=== PATIENT | female | born 1970 | race African-American/Black ===

== ENCOUNTER 2017-09-22 07:23 | Emergency (ER) | payer SELFPAY ==
[2017-09-22 08:41] LABS: Urine Blood NEGATIVE (NEG); Urine Glucose 2+ (NEG); Urine Protein NEGATIVE (NEG); Urine Specific Gravity 1.025 (1.005-1.030); Urine pH 5.5 (5.0-7.0)
[2017-09-22 08:43] LABS: Calcium Oxalate Crystals- Ur PRESENT (NONE SEEN); Urine Bacteria >50 /HPF (<20); Urine Culture Reflex Order REFLEXED; Urine RBC <5 /HPF (NONE SEEN)
--- NOTE | 2017-09-22 09:56 | RAD REPORT ---
EXAM DESCRIPTION: CT - Stone Protocol - 09/22/2017 9:26 am CLINICAL HISTORY: Abdominal pain, right lower quadrant pain COMPARISON: CT November 2016 TECHNIQUE: Axial 5 mm thick images were obtained without oral or IV contrast. The [id number] span s the entirety of the system partially obscuring uppermost abdomen and lung bases. All CT scans are performed using dose optimization technique as appropriate and may include automated exposure control or mA/KV adjustment according to patient size. FINDINGS: No hydronephrosis is present and no obstructing ureteral calculi. No suspicious renal mass es. Isodense masses and pyelonephritis are not excluded on a stone protocol CT scan. No urinary bladd er suspicious finding. Uterus is absent. Ovaries are absent or obscured by adjacent isodense bowel. N o ovarian or adnexal mass suspected. Imaged portions of the liver, spleen and pancreas show no suspicious findings on non-contrast imaging . Cholecystectomy clips are present. No biliary tree dilatation. No significant adrenal finding. Stomach and small bowel show no suspicious findings. There is no appendicitis. Moderately large stool volume is present throughout the colon. An active colon process is doubtful. Hyperdensity within the colon is probably from ingested medication. No hernia, mass or bulky lymphadenopathy noted. No free air, free fluid or inflammatory stranding. No significant bony abnormality. IMPRESSION: No hydronephrosis, obstructing calculus or other acute finding. Isodense masses and pyelonephritis are not excluded on stone protocol technique. Moderately large stool volume throughout the colon. No appendicitis or other active GI process.
--- NOTE | 2017-09-22 10:26 | EDPHYS ---
Physician Documentation [facility] Name: Bisi Santo Age: 47 yrs Sex: Female : 1970 Arrival Date: 09/22/2017 Time: 07:26 Bed 5 Private MD: ED Physician Steve Torres HPI: 09/22 10:14 This 47 yrs old Black Female presents to ER via Ambulatory with complaints of Abdominal gs Pain. 10:14 The patient complains of pain in the right low back. The pain radiates to the abdomen. gs Onset: The symptoms/episode began/occurred 2 day(s) ago. Modifying factors: The symptoms are alleviated by nothing. the symptoms are aggravated by nothing. Associated signs and symptoms: Pertinent negatives: diarrhea, fever, vomiting. Severity of pain: At its worst the pain was moderate in the emergency department the pain is unchanged. The patient has experienced similar episodes in the past, a few times. 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 - Social history:: Smoking status: Patient/guardian denies using tobacco. ROS: 10:14 All other systems are negative. gs Exam: 10:14 Head/Face: Normocephalic, atraumatic. Eyes: Pupils equal round and reactive to light, gs extra-ocular motions intact. Lids and lashes normal. Conjunctiva and sclera are non-icteric and not injected. Cornea within normal limits. Periorbital areas with no swelling, redness, or edema. ENT: Nares patent. No nasal discharge, no septal abnormalities noted. Tympanic membranes are normal and external auditory canals are clear. Oropharynx with no redness, swelling, or masses, exudates, or evidence of obstruction, uvula midline. Mucous membranes moist. Neck: Trachea midline, no thyromegaly or masses palpated, and no cervical lymphadenopathy. Supple, full range of motion without nuchal rigidity, or vertebral point tenderness. No Meningismus. Chest/axilla: Normal chest wall appearance and motion. Nontender with no deformity. No lesions are appreciated. Cardiovascular: Regular rate and rhythm with a normal S1 and S2. No gallops, murmurs, or rubs. Normal PMI, no JVD. No pulse deficits. Respiratory: Lungs have equal breath sounds bilaterally, clear to auscultation and percussion. No rales, rhonchi or wheezes noted. No increased work of breathing, no retractions or nasal flaring. Skin: Warm, dry with normal turgor. Normal color with no rashes, no lesions, and no evidence of cellulitis. MS/ Extremity: Pulses equal, no cyanosis. Neurovascular intact. Full, normal range of motion. Neuro: Awake and alert, GCS 15, oriented to person, place, time, and situation. Cranial nerves II-XII grossly intact. Motor strength 5/5 in all extremities. Sensory grossly intact. Cerebellar exam normal. Normal gait. 10:14 Constitutional: The patient appears alert, awake. 10:14 Back: pain, that is moderate, CVA tenderness, that is moderate, is noted on the right. Vital Signs: 07:49 BP 150 / 94; Pulse 90; Resp 18 S; Pulse Ox 100% on R/A; Weight 63.5 kg; Height 5 ft. 2 iw in. (157.48 cm); Pain 6/10; 08:45 BP 148 / 88; Pulse 88; Resp 16; Pulse Ox 100% on R/A; hb 10:24 BP 162 / 90; Pulse 84; Resp 19; Pulse Ox 100% on R/A; la1 07:49 Body Mass Index 25.61 (63.50 kg, 157.48 cm) iw MDM: 07:49 Patient medically screened. 10:14 Differential diagnosis: nephrolithiasis, pyelonephritis, UTI. Data reviewed: vital gs signs, nurses notes. Response to treatment: the patient's symptoms have mildly improved after treatment, and as a result, I will discharge patient. 09/22 07:56 Order name: Urine Microscopic Only; Complete Time: 08:52 gs 09/22 08:10 Order name: Urine Dipstick--Ancillary (enter results); Complete Time: 08:52 09/22 07:56 Order name: Urine Test (obtain specimen); Complete Time: 08:02 09/22 08:10 Order name: Urine --Ancillary (enter results); Complete Time: 08:52 09/22 08:45 Order name: Urine Culture [facility] 09/22 08:53 Order name: CT Stone Protocol; Complete Time: 10:13 09/22 07:56 Order name: Urine Dipstick-Ancillary (obtain specimen); Complete Time: 08:02 Administered Medications: No medications were administered Disposition: 09/22/17 10:26 Discharged to Home. Impression: Acute tubulo-interstitial nephritis. - Condition is Stable. - Discharge Instructions: Pyelonephritis, Adult. - Prescriptions for Keflex 500 mg Oral Capsule - take 2 capsule by ORAL route every 12 hours for 10 days; 40 capsule. - Medication Reconciliation Form, Thank You Letter, Antibiotic Education, Prescription Opioid Use form. - Follow up: Private Physician; When: 2 - 3 days; Reason: Re-evaluation by your physician. Signatures: Dispatcher [employer] Joan Posada RN RN iw Daniel Kapoor RN RN la1 Steve Torres MD MD Corrections: (The following items were deleted from the chart) 10:36 10:26 09/22/2017 10:26 Discharged to Home. Impression: Acute tubulo-interstitial la1 nephritis. Condition is Stable. Forms are Medication Reconciliation Form, Thank You Letter, Antibiotic Education, Prescription Opioid Use. Follow up: Private Physician; When: 2 - 3 days; Reason: Re-evaluation by your physician. gs
--- NOTE | 2017-09-22 10:26 | ER ---
Nurse's Notes [facility] Name: Bisi Santo Age: 47 yrs Sex: Female : 1970 Arrival Date: 09/22/2017 Time: 07:26 Bed 5 Private MD: Diagnosis: Acute tubulo-interstitial nephritis Presentation: 09/22 07:47 Presenting complaint: Patient states: has had RLQ pain since yesterday morning, iw described as dull intermittent, radiates to right lower back, denies hx of kidney stones, also had pain with urination this morning. Transition of care: patient was not received from another setting of care. Onset of symptoms was September 21, 2017. Initial Sepsis Screen: Does the patient meet any 2 criteria? No. Patient's initial sepsis screen is negative. Does the patient have a suspected source of infection? No. Patient's initial sepsis screen is negative. Care prior to arrival: None. 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 - Social history:: Smoking status: Patient/guardian denies using tobacco. Screenin:00 Abuse screen: Denies threats or abuse. Denies injuries from another. hb 08:00 Nutritional screening: No deficits noted. Tuberculosis screening: No symptoms or risk hb factors identified. Fall Risk None identified. Assessment: 08:00 General: Appears in no apparent distress. Behavior is calm, cooperative. Pain: Pain hb currently is 2 out of 10 on a pain scale. Neuro: Level of Consciousness is awake, alert, obeys commands, Oriented to person, place, time, situation. Cardiovascular: Capillary refill < 3 seconds Patient's skin is warm and dry. Respiratory: Airway is patent Trachea midline Respiratory effort is even, unlabored, Respiratory pattern is regular, symmetrical, Breath sounds are clear bilaterally. GI: Abdomen is flat, Bowel sounds present X 4 quads. Abd is soft and non tender X 4 quads. Reports lower abdominal pain. : Reports pain in right flank(s), lower quadrant(s). EENT: No signs and/or symptoms were reported regarding the EENT system. Derm: No signs and/or symptoms reported regarding the dermatologic system. Skin is intact, is healthy with good turgor. Musculoskeletal: No signs and/or symptoms reported regarding the musculoskeletal system. 09:00 Reassessment: Patient appears in no apparent distress at this time. No changes from hb previously documented assessment. Patient and/or family updated on plan of care and expected duration. Pain level reassessed. Patient is alert, oriented x 3, equal unlabored respirations, skin warm/dry/pink. 09:43 Reassessment: No changes from previously documented assessment. Patient and/or family la1 updated on plan of care and expected duration. Pain level reassessed. Patient is alert, oriented x 3, equal unlabored respirations, skin warm/dry/pink. Vital Signs: 07:49 BP 150 / 94; Pulse 90; Resp 18 S; Pulse Ox 100% on R/A; Weight 63.5 kg; Height 5 ft. 2 iw in. (157.48 cm); Pain 6/10; 08:45 BP 148 / 88; Pulse 88; Resp 16; Pulse Ox 100% on R/A; hb 10:24 BP 162 / 90; Pulse 84; Resp 19; Pulse Ox 100% on R/A; la1 07:49 Body Mass Index 25.61 (63.50 kg, 157.48 cm) iw ED Course: 07:26 Patient arrived in ED. mr 07:39 Steve Torres MD is Attending Physician. gs 07:42 Malu Paul, ISAIAH is Primary Nurse. hb 07:48 Triage completed. iw 07:49 Arm band placed on. iw 08:00 Patient has correct armband on for positive identification. Bed in low position. Call hb light in reach. Side rails up X 1. 09:17 Inserted saline lock: 20 gauge in right. hb 09:24 CT completed. Patient moved to CT via wheelchair. Patient moved back from CT. cw1 09:25 CT Stone Protocol In Process Unspecified. EDMS 10:35 No provider procedures requiring assistance completed. IV discontinued, intact, la1 bleeding controlled, No redness/swelling at site. Pressure dressing applied. Administered Medications: No medications were administered Outcome: 10:26 Discharge ordered by . gs 10:35 Discharged to home ambulatory. la1 10:35 Condition: stable 10:35 Discharge instructions given to patient, Instructed on discharge instructions, follow up and referral plans. medication usage, Demonstrated understanding of instructions, follow-up care, medications, Prescriptions given X 1. 10:36 Patient left the ED. la1 Addendum: 09/26/2017 14:24 Addendum: Culture Results: Positive urine culture. Bacteria is resistant to, has i w intermediate sensitivity, or is not tested against prescribed antibiotics. Report given to AMISHA for further evaluation and then to rn cardiac cath for follow up with patient. Phone call Attempt #1 pt was seen in ER 5--18, was prescribed Levaquin. Signatures: Dispatcher [employer] EDIL Laura Vallejo Irene, RN Mary Jarquin cw1 Daniel Kapoor RN RN la1 Malu Paul, Steve Coyle RN, MD MD gs
[2017-09-22 10:40] VITALS: O2SAT 100
[2017-09-22 10:42] VITALS: BP 162/90
== END 2017-09-22 10:36 | disposition home or self-care (01) ==
LOC: ER 07:23
DX: N10 Acute pyelonephritis (principal); I10 Essential (primary) hypertension; E11.9 Type 2 diabetes mellitus without complications; Z79.4 Long term (current) use of insulin; Z88.2 Allergy status to sulfonamides; Z88.5 Allergy status to narcotic agent
CPT/HCPCS: 74176; 76377; 81003; 81015; 81025; 87077; 87086; 87088; 87186; 99284

== ENCOUNTER 2017-09-26 08:31 | Emergency (ER) | payer SELFPAY ==
[2017-09-26] MEDS ORDERED: MEPERIDINE HCL 25 MG/0.5 ML ONE (09:19)
[2017-09-26] MEDS ORDERED: PROMETHAZINE 25 MG/ML VIAL ONE (09:19)
[2017-09-26 09:44] LABS: Absolute Monocytes 0.4 K/uL (0.1-1.3); Absolute Neutrophil 2.7 K/uL (1.8-8.0); Basophils % 0.5 % (0-1.3); Eosinophils % 1.6 % (0-4.4); Hematocrit 40.6 % (36.0-45.0); Lymphocytes % 39.1 % (15.3-44.8); MCH 29.3 pg (27.0-35.0); MCV 88.9 fL (80-100); MPV 9.5 fL (7.6-11.3); Monocytes % 6.9 % (3.3-12.3); RBC Red Blood Cell Count 4.57 M/uL (3.86-4.86)
[2017-09-26 09:52] LABS: Bicarbonate 30 mEq/L (21-31); Glucose Level 207 mg/dL (65-120); Lipase 35 U/L (22-51); Potassium 3.6 mEq/L (3.6-5.0); Sodium Level 135 mEq/L (135-145)
[2017-09-26 09:59] LABS: ALT/SGPT 25 IU/L (10-60); AST/SGOT 33 IU/L (10-42); Albumin 3.3 g/dL (3.2-5.5); Alkaline Phosphatase 72 IU/L (42-121); BUN Blood Urea Nitrogen 12 mg/dL (6-20); Bilirubin Direct 0.1 mg/dL (0-0.2); Bilirubin Total 0.7 mg/dL (0.3-1.2); Protein, Total 6.6 g/dL (6.0-8.3)
--- NOTE | 2017-09-26 10:40 | ER ---
Nurse's Notes [facility] Name: Bisi Santo Age: 47 yrs Sex: Female : 1970 Arrival Date: 09/26/2017 Time: 08:33 Bed 19 Private MD: Musa Rey Diagnosis: Acute tubulo-interstitial nephritis Presentation: 09/26 08:44 Presenting complaint: Patient states: dx with kidney infection recently, was prescribed iw abx, has increased pain to right flank, also having blood when she wipes after urinating, c/o pain to right flank when she urinates, denies fever. Transition of care: patient was not received from another setting of care. Onset of symptoms was September 26, 2017. Initial Sepsis Screen: Does the patient meet any 2 criteria? No. Patient's initial sepsis screen is negative. Does the patient have a suspected source of infection? No. Patient's initial sepsis screen is negative. Care prior to arrival: None. 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 - Social history:: Smoking status: Patient/guardian denies using tobacco. Screenin:53 Abuse screen: Denies threats or abuse. Nutritional screening: No deficits noted. ae1 Tuberculosis screening: No symptoms or risk factors identified. Fall Risk None identified. Assessment: 09:20 General: Appears uncomfortable, Behavior is calm, cooperative. Pain: Complains of pain ae1 in abdomen. Neuro: Level of Consciousness is awake, alert, obeys commands, Oriented to person, place, time, situation. Cardiovascular: Heart tones S1 S2 present Patient's skin is warm and dry. Respiratory: Airway is patent Respiratory effort is even, unlabored, Respiratory pattern is regular, symmetrical. GI: Bowel sounds present X 4 quads. Abd is soft and non tender. : Reports burning with urination, urinary frequency. EENT: No signs and/or symptoms were reported regarding the EENT system. Derm: Skin is normal. Musculoskeletal: No signs and/or symptoms reported regarding the musculoskeletal system. 10:09 Reassessment: Patient and/or family updated on plan of care and expected duration. Pain ae1 level reassessed. Patient states feeling better. Patient states symptoms have improved. 10:25 Reassessment: Patient up to restroom, encouraged to provide urine sample. ae1 Vital Signs: 08:46 BP 157 / 94; Pulse 92; Resp 18 S; Temp 98.1(TE); Pulse Ox 99% on R/A; Weight 63.5 kg; iw Height 5 ft. 2 in. (157.48 cm); Pain 9/10; 10:52 BP 161 / 90; Pulse 88; Resp 18; Pulse Ox 99% on R/A; ae1 08:46 Body Mass Index 25.61 (63.50 kg, 157.48 cm) iw ED Course: 08:33 Patient arrived in ED. mr 08:34 Musa Rey DO is Private Physician. mr 08:45 Triage completed. iw 08:46 Arm band placed on. iw 09:01 Tonny Yung PA is PHCP. jr8 09:01 Juan Pablo Barr MD is Attending Physician. jr8 09:17 Fabio Heath, ISAIAH is Primary Nurse. ae1 09:25 Inserted saline lock: 20 gauge in right antecubital area, using aseptic technique. ae1 Blood collected. 10:10 Placed in gown. Bed in low position. Call light in reach. Side rails up X 1. Adult w/ ae1 patient. Pulse ox on. NIBP on. Warm blanket given. 10:38 Musa Rey DO is Referral Physician. jr8 10:54 No provider procedures requiring assistance completed. ae1 11:10 IV discontinued, intact, bleeding controlled, No redness/swelling at site. Pressure ae1 dressing applied. Administered Medications: 09:00 Drug: Demerol 25 mg Route: IVP; Site: right antecubital; ae1 10:09 Follow up: Response: Pain is decreased ae1 09:27 Drug: Phenergan 12.5 mg Route: IVP; Site: right antecubital; ae1 10:10 Follow up: Response: Nausea is decreased ae1 10:52 Drug: LevaQUIN 500 mg Route: PO; ae1 11:11 Follow up: Response: Medication administered at discharge. ae1 Outcome: 10:39 Discharge ordered by . francoise 11:10 Discharged to home ambulatory, with family. ae1 11:10 Condition: stable 11:10 Discharge instructions given to patient, Instructed on discharge instructions, follow up and referral plans. medication usage, Demonstrated understanding of instructions, Prescriptions given X 2. 11:11 Patient left the ED. ae1 Signatures: Laura Vallejo Irene, RN RN iw Tonny Yung PA PA jr8 Elliott, Andrea, RN RN ae1
--- NOTE | 2017-09-26 10:40 | EDPHYS ---
Physician Documentation [facility] Name: Bisi Santo Age: 47 yrs Sex: Female : 1970 Arrival Date: 09/26/2017 Time: 08:33 Bed 19 Private MD: Musa Rey ED Physician Juan Pablo Barr HPI: 09/26 10:35 This 47 yrs old Black Female presents to ER via Ambulatory with complaints of flank jr8 pain. 10:35 The patient complains of pain in the right flank. The pain does not radiate. Onset: The jr8 symptoms/episode began/occurred acutely, yesterday. Modifying factors: The symptoms are alleviated by nothing. the symptoms are aggravated by movement. Associated signs and symptoms: Pertinent positives: dysuria, nausea. Severity of pain: At its worst the pain was moderate in the emergency department the pain is unchanged. The patient has experienced a previous episode. The patient has been recently seen by a physician:. Patient recently seen and diagnosed with pyelonephritis. Stated that her pain is back and antibiotics not working . 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 - Social history:: Smoking status: Patient/guardian denies using tobacco. ROS: 10:35 Eyes: Negative for injury, pain, redness, and discharge, ENT: Negative for injury, jr8 pain, and discharge, Neck: Negative for injury, pain, and swelling, Cardiovascular: Negative for chest pain, palpitations, and edema, Respiratory: Negative for shortness of breath, cough, wheezing, and pleuritic chest pain, MS/Extremity: Negative for injury and deformity, Skin: Negative for injury, rash, and discoloration, Neuro: Negative for headache, weakness, numbness, tingling, and seizure. 10:35 Abdomen/GI: Positive for nausea, Negative for abdominal pain, vomiting, diarrhea, constipation, abdominal cramps, abdominal distension, anorexia, dysphagia, hematemesis, black/tarry stool, rectal pain, rectal bleeding, bowel incontinence, flatulence. 10:35 Back: Positive for flank pain, on the right. Exam: 10:35 Eyes: Pupils equal round and reactive to light, extra-ocular motions intact. Lids and jr8 lashes normal. Conjunctiva and sclera are non-icteric and not injected. Cornea within normal limits. Periorbital areas with no swelling, redness, or edema. ENT: Nares patent. No nasal discharge, no septal abnormalities noted. Tympanic membranes are normal and external auditory canals are clear. Oropharynx with no redness, swelling, or masses, exudates, or evidence of obstruction, uvula midline. Mucous membranes moist. Neck: Trachea midline, no thyromegaly or masses palpated, and no cervical lymphadenopathy. Supple, full range of motion without nuchal rigidity, or vertebral point tenderness. No Meningismus. Cardiovascular: Regular rate and rhythm with a normal S1 and S2. No gallops, murmurs, or rubs. Normal PMI, no JVD. No pulse deficits. Respiratory: Lungs have equal breath sounds bilaterally, clear to auscultation and percussion. No rales, rhonchi or wheezes noted. No increased work of breathing, no retractions or nasal flaring. Abdomen/GI: Soft, non-tender, with normal bowel sounds. No distension or tympany. No guarding or rebound. No evidence of tenderness throughout. Skin: Warm, dry with normal turgor. Normal color with no rashes, no lesions, and no evidence of cellulitis. MS/ Extremity: Pulses equal, no cyanosis. Neurovascular intact. Full, normal range of motion. Neuro: Awake and alert, GCS 15, oriented to person, place, time, and situation. Cranial nerves II-XII grossly intact. Motor strength 5/5 in all extremities. Sensory grossly intact. Cerebellar exam normal. Normal gait. 10:35 Back: pain, that is moderate, of the right flank, ROM is normal, normal spinal alignment noted, CVA tenderness, that is mild, is noted on the right, vertebral tenderness, is not appreciated, muscle spasm, is not present. Vital Signs: 08:46 BP 157 / 94; Pulse 92; Resp 18 S; Temp 98.1(TE); Pulse Ox 99% on R/A; Weight 63.5 kg; iw Height 5 ft. 2 in. (157.48 cm); Pain 9/10; 10:52 BP 161 / 90; Pulse 88; Resp 18; Pulse Ox 99% on R/A; ae1 08:46 Body Mass Index 25.61 (63.50 kg, 157.48 cm) iw MDM: 09:01 Patient medically screened. jr8 10:35 Data reviewed: vital signs, nurses notes, old medical records, lab test result(s), and jr8 as a result, I will discharge patient. Data interpreted: Pulse oximetry: on room air is 99 %. Interpretation: normal. Counseling: I had a detailed discussion with the patient and/or guardian regarding: the historical points, exam findings, and any diagnostic results supporting the discharge/admit diagnosis, lab results, radiology results, the need for outpatient follow up, a family practitioner, a urologist, to return to the emergency department if symptoms worsen or persist or if there are any questions or concerns that arise at home. 09/26 09:15 Order name: Basic Metabolic Panel; Complete Time: 10:09/26 09:15 Order name: CBC with Diff; Complete Time: 09/26 09:15 Order name: Creatinine for Radiology; Complete Time: 10:09/26 09:15 Order name: Hepatic Function; Complete Time: :09/26 09:15 Order name: Lipase; Complete Time: 09/26 10:41 Order name: Urine Dipstick--Ancillary (enter results); Complete Time: 10:49 ag 09/26 09:15 Order name: IV Saline Lock; Complete Time: 09:40 09/26 09:15 Order name: Labs collected and sent; Complete Time: :09/26 09:15 Order name: Urine Dipstick-Ancillary (obtain specimen); Complete Time: 10:35 jr Administered Medications: 09:00 Drug: Demerol 25 mg Route: IVP; Site: right antecubital; ae1 10:09 Follow up: Response: Pain is decreased ae1 09:27 Drug: Phenergan 12.5 mg Route: IVP; Site: right antecubital; ae1 10:10 Follow up: Response: Nausea is decreased ae1 10:52 Drug: LevaQUIN 500 mg Route: PO; ae1 11:11 Follow up: Response: Medication administered at discharge. ae1 Disposition: 09/27 07:03 Co-signature as Attending Physician, Juan Pablo Barr MD I agree with the assessment and mo plan of care. Disposition: 09/26/17 10:39 Discharged to Home. Impression: Acute tubulo-interstitial nephritis. - Condition is Stable. - Discharge Instructions: Pyelonephritis, Adult. - Prescriptions for Levaquin 500 mg Oral Tablet - take 1 tablet by ORAL route once daily for 7 days; 7 tablet. Tramadol 50 mg Oral Tablet - take 1 tablet by ORAL route every 8 hours as needed; 12 tablet. - Medication Reconciliation Form, Thank You Letter, Antibiotic Education, Prescription Opioid Use form. - Follow up: Musa Rey DO; When: 1 - 2 days; Reason: Recheck today's complaints, Continuance of care, Re-evaluation by your physician. - Problem is new. - Symptoms have improved. Signatures: Dispatcher [employer] EDMS Joan Balbuena RN RN iw Roszak, Josh, PA PA jr8 Fabio Heath RN RN ae1 Juan Pablo Barr MD MD mo Corrections: (The following items were deleted from the chart) 09/26 11:11 10:39 09/26/2017 10:39 Discharged to Home. Impression: Acute tubulo-interstitial ae1 nephritis. Condition is Stable. Forms are Medication Reconciliation Form, Thank You Letter, Antibiotic Education, Prescription Opioid Use. Follow up: Musa Rey; When: 1 - 2 days; Reason: Recheck today's complaints, Continuance of care, Re-evaluation by your physician. Problem is new. Symptoms have improved. jr8
[2017-09-26 10:45] LABS: Urine Blood NEGATIVE (NEG); Urine Glucose 2+ (NEG); Urine Protein 1+ (NEG); Urine pH 6.5 (5.0-7.0)
[2017-09-26] MEDS ORDERED: levoFLOXacin 500 MG TAB ONE (10:50)
[2017-09-26 11:15] VITALS: TEMP 98.1; O2SAT 99
[2017-09-26 11:16] VITALS: BP 161/90
== END 2017-09-26 11:11 | disposition home or self-care (01) ==
LOC: ER 08:31
DX: N10 Acute pyelonephritis (principal); E11.9 Type 2 diabetes mellitus without complications; Z79.4 Long term (current) use of insulin; I10 Essential (primary) hypertension
CPT/HCPCS: 36415; 80048; 80076; 81003; 83690; 85025; 96374; 96375; 99284; J2175; J2550

== ENCOUNTER 2018-01-10 07:44 | Emergency (ER) | payer SELFPAY ==
[2018-01-10 08:19] LABS: Absolute Lymphocytes (CBC) 1.6 K/uL (0.7-4.9); Absolute Monocytes 0.3 K/uL (0.1-1.3); Absolute Neutrophil 2.7 K/uL (1.8-8.0); Basophils % 0.6 % (0-1.3); Eosinophils % 1.4 % (0-4.4); Hematocrit 43.8 % (36.0-45.0); Lymphocytes % 33.4 % (15.3-44.8); MCH 29.7 pg (27.0-35.0); MCV 88.9 fL (80-100); MPV 9.8 fL (7.6-11.3); Monocytes % 6.7 % (3.3-12.3); RBC Red Blood Cell Count 4.93 M/uL (3.86-4.86)
[2018-01-10] MEDS ORDERED: KETOROLAC 30 MG/ML INJ ONE (08:27)
[2018-01-10 08:43] LABS: BUN Blood Urea Nitrogen 9 mg/dL (7-18); Bicarbonate 31 mmol/L (21-32); Glucose Level 361 mg/dL (74-106); Potassium 4.2 mmol/L (3.5-5.1); Sodium Level 137 mmol/L (136-145)
[2018-01-10 09:02] LABS: Protime INR 0.92
--- NOTE | 2018-01-10 09:17 | RAD REPORT ---
EXAM DESCRIPTION: RAD - Chest Single View - 01/10/2018 8:22 am CLINICAL HISTORY: CHEST PAIN Chest pain. COMPARISON: Chest Pa And Lat (2 Views) dated 07/11/2017; Chest Single View dated 06/08/2017; Chest Sin gle View dated 12/11/2016; Chest Single View dated 12/10/2016 FINDINGS: Portable technique limits examination quality. The lungs are grossly clear. The heart is normal in size. No displaced fractures. IMPRESSION: No acute intrathoracic process suspected.
[2018-01-10] MEDS ORDERED: ONDANSETRON 4 MG/2 ML VIAL ONE (09:28)
[2018-01-10] MEDS ORDERED: cloNIDine HCl 0.1 MG TAB ONE ×2 (10:32→11:23)
[2018-01-10] MEDS ORDERED: NA CHLORIDE 0.9% 1,000 ML ONE (10:36)
[2018-01-10 10:45] LABS: Barbiturates NEGATIVE (NEGATIVE); Benzodiazepines NEGATIVE (NEGATIVE); Cocaine NEGATIVE (NEGATIVE); METHAMPHETAM NEGATIVE (NEGATIVE); Methadone NEGATIVE (NEGATIVE); Opiates NEGATIVE (NEGATIVE); Phencyclidine NEGATIVE (NEGATIVE); THC Cannibis NEGATIVE (NEGATIVE)
--- NOTE | 2018-01-10 10:53 | RAD REPORT ---
EXAM DESCRIPTION: CT - Chest For Pe Angio - 01/10/2018 10:46 am CLINICAL HISTORY: Chest pain, shortness of breath COMPARISON: Chest films same date, CT chest November 2016 TECHNIQUE: Dynamically enhanced 3 mm thick images of the chest were obtained during administration o f approximately 150mL Isovue 370 IV contrast. Coronal and oblique reconstruction images were generate d using MIP and reviewed. Exam utilizes a protocol to evaluate the pulmonary arterial tree. All CT scans are performed using dose optimization technique as appropriate and may include automated exposure control or mA/KV adjustment according to patient size. FINDINGS: No pulmonary emboli are identified. The aorta as imaged shows no acute or suspicious finding. No pericardial thickening or effusion. No infiltrate or suspicious mass in the lung parenchyma. No pleural effusion or pleural thickening. A 3 mm calcified granuloma is present in the posterior gutter on the left. No mediastinal or hilar suspicious masses. No chest wall masses or abnormal axillary lymphadenopathy. IMPRESSION: No pulmonary emboli identified. No other significant or suspicious findings.
[2018-01-10 11:39] LABS: Urine Blood TRACE (NEG); Urine Glucose 3+ (NEG); Urine Protein 1+ (NEG)
--- NOTE | 2018-01-10 11:58 | EDPHYS ---
Physician Documentation [facility] Name: Bisi Santo Age: 47 yrs Sex: Female : 1970 Arrival Date: 01/10/2018 Time: 07:44 Bed 20 Private MD: None, None ED Physician Steve Torres HPI: 01/10 11:36 This 47 yrs old Black Female presents to ER via Wheelchair with complaints of Chest gs Pain. 11:36 The patient or guardian reports chest pain that is located primarily in the anterior gs chest wall. Onset: yesterday. The pain does not radiate. Associated signs and symptoms: Pertinent negatives: shortness of breath. The chest pain is described as sharp. Duration: The patient or guardian reports a single episode, that is still ongoing, and unchanged. Modifying factors: The symptoms are alleviated by nothing. the symptoms are aggravated by nothing. Severity of pain: At its worst the pain was severe in the emergency department the pain is unchanged. The patient has experienced similar episodes in the past, a few times. 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 - Social history:: Smoking status: Patient/guardian denies using tobacco. - Ebola Screening: : Patient negative for fever greater than or equal to 101.5 degrees Fahrenheit, and additional compatible Ebola Virus Disease symptoms Patient denies exposure to infectious person Patient denies travel to an Ebola-affected area in the 21 days before illness onset No symptoms or risks identified at this time. ROS: 11:36 All other systems are negative. gs Exam: 11:36 Constitutional: The patient appears alert, awake. gs 11:51 Head/Face: Normocephalic, atraumatic. Eyes: Pupils equal round and reactive to light, gs extra-ocular motions intact. Lids and lashes normal. Conjunctiva and sclera are non-icteric and not injected. Cornea within normal limits. Periorbital areas with no swelling, redness, or edema. Neck: Trachea midline, no thyromegaly or masses palpated, and no cervical lymphadenopathy. Supple, full range of motion without nuchal rigidity, or vertebral point tenderness. No Meningismus. Chest/axilla: Normal chest wall appearance and motion. Nontender with no deformity. No lesions are appreciated. Cardiovascular: Regular rate and rhythm with a normal S1 and S2. No gallops, murmurs, or rubs. Normal PMI, no JVD. No pulse deficits. Respiratory: Lungs have equal breath sounds bilaterally, clear to auscultation and percussion. No rales, rhonchi or wheezes noted. No increased work of breathing, no retractions or nasal flaring. Abdomen/GI: Soft, non-tender, with normal bowel sounds. No distension or tympany. No guarding or rebound. No evidence of tenderness throughout. Back: No spinal tenderness. No costovertebral tenderness. Full range of motion. MS/ Extremity: Pulses equal, no cyanosis. Neurovascular intact. Full, normal range of motion. Neuro: Awake and alert, GCS 15, oriented to person, place, time, and situation. Cranial nerves II-XII grossly intact. Motor strength 5/5 in all extremities. Sensory grossly intact. Cerebellar exam normal. Normal gait. 11:51 Constitutional: The patient appears uncomfortable. 11:51 ENT: Nose: nasal drainage, that is minimal, that is clear. 11:51 Skin: Appearance: goose pimples. 13:58 ECG was reviewed by the Attending Physician. 13:58 ECG was reviewed by the Attending Physician. Vital Signs: 07:59 BP 158 / 90; Pulse 102; Resp 16; Temp 98.6(O); Pulse Ox 100% on R/A; Weight 56.7 kg; em Height 5 ft. 2 in. (157.48 cm); Pain 10/10; 08:51 BP 134 / 81; Pulse 101; Resp 16; Pulse Ox 98% on R/A; Pain 10/10; em 09:42 BP 143 / 100; Pulse 100; Resp 20; Pulse Ox 98% on R/A; mh5 10:07 BP 143 / 93; Pulse 99; Resp 16 S; Pulse Ox 99% on R/A; em 10:49 BP 164 / 93; Pulse 101; Resp 15; Pulse Ox 98% on R/A; mh5 11:40 BP 142 / 83; Pulse 93; Resp 15; Pulse Ox 100% on R/A; Pain 6/10; em 07:59 Body Mass Index 22.86 (56.70 kg, 157.48 cm) em MDM: 08:05 Patient medically screened. 11:51 Differential diagnosis: acute myocardial infarction, chest wall pain, pulmonary gs embolus, thoracic aortic disection, opiate withdrawl. Data reviewed: vital signs, nurses notes. ED course: pt denies opiate use. has all classic findings increased hr,bp gooseflesh and clear rhinorrea. responding to clonidine cardiac work up negative pain resolved. 01/10 08:07 Order name: Basic Metabolic Panel; Complete Time: 09:05 01/10 08:07 Order name: CBC with Diff; Complete Time: 09:05 01/10 08:07 Order name: PT-INR; Complete Time: 09:05 01/10 08:07 Order name: Troponin (emerg Dept Use Only); Complete Time: 09:05 01/10 08:07 Order name: D-Dimer; Complete Time: 09:05 01/10 09:16 Order name: Troponin I; Complete Time: 10:52 01/10 08:07 Order name: XRAY Chest (1 view); Complete Time: 09:20 01/10 09:29 Order name: Chest For PE Angio CT; Complete Time: 10:55 01/10 09:29 Order name: Urine Drug Screen 01/10 09:29 Order name: Urine Drug Screen; Complete Time: 10:52 EDMS 01/10 10:57 Order name: Urine Dipstick--Ancillary (enter results) 01/10 10:57 Order name: Urine --Ancillary (enter results); Complete Time: 11:58 ag 01/10 10:58 Order name: Urine Dipstick-Ancillary; Complete Time: 11:58 EDMS 01/10 07:50 Order name: EKG; Complete Time: 07:50 01/10 07:50 Order name: EKG - Nurse/Tech; Complete Time: 08:26 01/10 08:07 Order name: Cardiac monitoring; Complete Time: 08: 01/10 08:07 Order name: IV Saline Lock; Complete Time: : 01/10 08:07 Order name: Labs collected and sent; Complete Time: 08: 01/10 08:07 Order name: O2 Per Protocol; Complete Time: 08: 01/10 08:07 Order name: O2 Sat Monitoring; Complete Time: : 01/10 08:07 Order name: Urine Dipstick-Ancillary (obtain specimen); Complete Time: 11:01 01/10 09:16 Order name: EKG - Nurse/Tech; Complete Time: 11:00 01/10 09:16 Order name: EKG; Complete Time: 09:16 EC:58 Rate is 930 beats/min. Rhythm is regular. OH interval is normal. QRS interval is gs normal. T waves are Normal. No ST changes noted. Clinical impression: Normal ECG. Interpreted by me. 13:58 Clinical impression: No change from prior ECG. gs Administered Medications: 08:27 Drug: TORadol 15 mg Route: IVP; Site: right antecubital; iw 09:19 Follow up: Response: No adverse reaction; Pain is unchanged, physician notified em 09:27 Drug: Zofran 4 mg Route: IVP; Site: right antecubital; iw 10:31 Follow up: Response: No adverse reaction; Nausea is decreased em 10:30 Drug: cloNIDine 0.1 mg Route: PO; em 12:20 Follow up: Response: No adverse reaction; Blood pressure is lowered em 10:55 Drug: NS 0.9% 1000 ml Route: IV; Rate: 1000 ml; Site: left antecubital; em 12:20 Follow up: IV Status: Completed infusion; IV Intake: 1000ml em 11:20 Drug: cloNIDine 0.1 mg Route: PO; em 12:20 Follow up: Response: No adverse reaction; Blood pressure is lowered em Disposition: 18 11:57 Discharged to Home. Impression: Chest pain, unspecified, Essential (primary) hypertension. - Condition is Stable. - Discharge Instructions: Nonspecific Chest Pain, Hypertension. - Medication Reconciliation Form, Thank You Letter, Antibiotic Education, Prescription Opioid Use form. - Follow up: Private Physician; When: 2 - 3 days; Reason: Re-evaluation by your physician. Signatures: Dispatcher [employer] Ian Rosales, COMPENSATION AND BENEFITS ADVISOR COMPENSATION AND BENEFITS ADVISOR Joan Gutierrez RN RN iw Starr, Gregory, MD MD gs Corrections: (The following items were deleted from the chart) 12:21 11:57 01/10/2018 11:57 Discharged to Home. Impression: Chest pain, unspecified; em Essential (primary) hypertension. Condition is Stable. Forms are Medication Reconciliation Form, Thank You Letter, Antibiotic Education, Prescription Opioid Use. Follow up: Private Physician; When: 2 - 3 days; Reason: Re-evaluation by your physician. gs
--- NOTE | 2018-01-10 11:58 | ER ---
Nurse's Notes [facility] Name: Bisi Santo Age: 47 yrs Sex: Female : 1970 Arrival Date: 01/10/2018 Time: 07:44 Bed 20 Private MD: None, None Diagnosis: Chest pain, unspecified;Essential (primary) hypertension Presentation: 01/10 07:55 Presenting complaint: Patient states: CP that started yesterday with N/V, also c/o em dizziness and SOB, and pain described as "hammer on chest". Transition of care: patient was not received from another setting of care. Onset of symptoms was January 09, 2018. Risk Assessment: Do you want to hurt yourself or someone else? Patient reports no desire to harm self or others. Initial Sepsis Screen: Does the patient meet any 2 criteria? No. Patient's initial sepsis screen is negative. Does the patient have a suspected source of infection? No. Patient's initial sepsis screen is negative. Care prior to arrival: None. 07:55 Method Of Arrival: Wheelchair em 08:20 Acuity: SONIA 3 iw Triage Assessment: 07:58 General: Appears in no apparent distress. uncomfortable, Behavior is calm, cooperative. em Pain: Complains of pain in chest. Cardiovascular: Reports chest pain, nausea, shortness of breath, vomiting. GRINDER HARDBOARD: 07:59 LMP N/A - Hysterectomy em Historical: - Allergies: 07:58 Morphine; em 07:58 Codeine; em 07:58 Sulfa (Sulfonamide Antibiotics); em 07:58 Demerol; em - Home Meds: 08:18 amlodipine oral [Active]; estradiol Oral [Active]; Humalog Sub-Q [Active]; gabapentin em Oral [Active]; Metformin Oral [Active]; Novolog Sub-Q [Active]; - PMHx: 07:58 Diabetes - IDDM; Hypertension; neuropathy divya lower legs; ADD/ADHD; em - PSHx: 07:58 Hysterectomy; Cholecystectomy; em - Immunization history:: Adult Immunizations up to date. - Social history:: Smoking status: Patient/guardian denies using tobacco. - Ebola Screening: : Patient negative for fever greater than or equal to 101.5 degrees Fahrenheit, and additional compatible Ebola Virus Disease symptoms Patient denies exposure to infectious person Patient denies travel to an Ebola-affected area in the 21 days before illness onset No symptoms or risks identified at this time. Screenin:00 Abuse screen: Denies threats or abuse. Nutritional screening: No deficits noted. em Tuberculosis screening: No symptoms or risk factors identified. Fall Risk None identified. Assessment: 08:00 General: Appears in no apparent distress. uncomfortable, Behavior is calm, cooperative. em Pain: Complains of pain in chest Pain does not radiate. Quality of pain is described as pressure, Pain began 1 day ago. Neuro: Level of Consciousness is awake, alert, obeys commands, Oriented to person, place, time, situation, Reports dizziness. Cardiovascular: Reports chest pain, nausea, shortness of breath, vomiting, Capillary refill < 3 seconds Patient's skin is warm and dry. Respiratory: Airway is patent Respiratory effort is even, unlabored, Respiratory pattern is regular, symmetrical. GI: Abdomen is flat. : No signs and/or symptoms were reported regarding the genitourinary system. EENT: No signs and/or symptoms were reported regarding the EENT system. Derm: Skin is intact, Skin is pink, warm \\T\\ dry. Musculoskeletal: Range of motion: intact in all extremities. 08:15 Reassessment: Patient appears in no apparent distress at this time. I agree with above iw assessment by Ian Beltran LVN. 08:55 Reassessment: Patient appears in no apparent distress at this time. Patient and/or em family updated on plan of care and expected duration. Pain level reassessed. Patient is alert, oriented x 3, equal unlabored respirations, skin warm/dry/pink. pt reports medication has not worked, rates pain 10/10, Dr. Torres notified. 10:09 Reassessment: Patient appears in no apparent distress at this time. Patient and/or em family updated on plan of care and expected duration. Pain level reassessed. Patient is alert, oriented x 3, equal unlabored respirations, skin warm/dry/pink. 11:10 Reassessment: Patient appears in no apparent distress at this time. Patient and/or em family updated on plan of care and expected duration. Pain level reassessed. Patient is alert, oriented x 3, equal unlabored respirations, skin warm/dry/pink. rates pain 6/10 Patient states feeling better. 12:03 Reassessment: Patient appears in no apparent distress at this time. Patient and/or em family updated on plan of care and expected duration. Pain level reassessed. Patient is alert, oriented x 3, equal unlabored respirations, skin warm/dry/pink. Patient states feeling better. Patient states symptoms have improved. Vital Signs: 07:59 BP 158 / 90; Pulse 102; Resp 16; Temp 98.6(O); Pulse Ox 100% on R/A; Weight 56.7 kg; em Height 5 ft. 2 in. (157.48 cm); Pain 10/10; 08:51 BP 134 / 81; Pulse 101; Resp 16; Pulse Ox 98% on R/A; Pain 10/10; em 09:42 BP 143 / 100; Pulse 100; Resp 20; Pulse Ox 98% on R/A; mh5 10:07 BP 143 / 93; Pulse 99; Resp 16 S; Pulse Ox 99% on R/A; em 10:49 BP 164 / 93; Pulse 101; Resp 15; Pulse Ox 98% on R/A; mh5 11:40 BP 142 / 83; Pulse 93; Resp 15; Pulse Ox 100% on R/A; Pain 6/10; em 07:59 Body Mass Index 22.86 (56.70 kg, 157.48 cm) em ED Course: 07:44 Patient arrived in ED. mr 07:45 None, None is Private Physician. mr 07:50 Steve Torres MD is Attending Physician. gs 07:55 Ian Beltran LVN is Primary Nurse. em 07:59 Arm band placed on. em 07:59 Patient has correct armband on for positive identification. Placed in gown. Bed in low em position. Call light in reach. Adult w/ patient. threat monitoring analyst on. Pulse ox on. NIBP on. 07:59 No provider procedures requiring assistance completed. Patient maintains SpO2 em saturation greater than 95% on room air. 08:18 EKG done, by ED staff, reviewed by Steve Torres MD. at1 08:20 Triage completed. iw 08:21 X-ray completed. Portable x-ray completed in exam room. Patient tolerated procedure az well. 08:22 XRAY Chest (1 view) In Process Unspecified. EDMS 09:[address] nj 10:10 Missed attempt(s): 20 gauge in right antecubital area. iw 10:33 Urine Drug Screen Sent. mh5 10:33 Urine Drug Screen Sent. mh5 10:33 Urine collected: clean catch specimen, cloudy. mh5 10:34 Urine Drug Screen Sent. mh5 10:35 Accessed peripheral vein via ultrasound, utilizing dynamic ultrasound technique using la1 18G Sureflo IV catheter. 10:46 Chest For PE Angio CT In Process Unspecified. EDMS 12:21 IV discontinued, intact, bleeding controlled, No redness/swelling at site. Pressure em dressing applied. Administered Medications: 08:27 Drug: TORadol 15 mg Route: IVP; Site: right antecubital; iw 09:19 Follow up: Response: No adverse reaction; Pain is unchanged, physician notified em 09:27 Drug: Zofran 4 mg Route: IVP; Site: right antecubital; iw 10:31 Follow up: Response: No adverse reaction; Nausea is decreased em 10:30 Drug: cloNIDine 0.1 mg Route: PO; em 12:20 Follow up: Response: No adverse reaction; Blood pressure is lowered em 10:55 Drug: NS 0.9% 1000 ml Route: IV; Rate: 1000 ml; Site: left antecubital; em 12:20 Follow up: IV Status: Completed infusion; IV Intake: 1000ml em 11:20 Drug: cloNIDine 0.1 mg Route: PO; em 12:20 Follow up: Response: No adverse reaction; Blood pressure is lowered em Intake: 12:20 IV: 1000ml; Total: 1000ml. em Outcome: 11:57 Discharge ordered by . 12:21 Discharged to home ambulatory, with family. em 12:21 Condition: good 12:21 Discharge instructions given to patient, family, Instructed on discharge instructions, follow up and referral plans. Demonstrated understanding of instructions, follow-up care. 12:21 Patient left the ED. em Signatures: Dispatcher [employer] Laura Talleyoz, Ian, METER READER INSPECTOR METER READER INSPECTOR em Joan Balbuena RN RN iw gonzales, Amanda, paper inspector EKG Tat1 Daniel Kapoor RN RN Isidro Loo Maria 5 Steve Torres MD MD Kristel Browne Corrections: (The following items were deleted from the chart) 09:57 07:59 BP 158 / 90; Pulse 102bpm; Resp 16bpm; Pulse Ox 100% RA; 56.7 kg; Height 5 ft. 2 em in.; BMI: 22.8; Pain 10/10; em
[2018-01-10 12:31] VITALS: TEMP 98.6
[2018-01-10 12:38] VITALS: BP 142/83; O2SAT 100
--- NOTE | 2018-01-10 17:14 | EKG ---
Test Date: 2018-01-10 Test Time: 09:30:21 Corporate Legal Intern: SHELIA MEASUREMENT RESULTS: Intervals: Rate: 99 NC: 130 QRSD: 78 QT: 360 QTc: 462 [place]: P: 79 NC: 130 QRS: -23 T: 39 INTERPRETIVE STATEMENTS: Normal sinus rhythm Normal ECG Compared to ECG 01/10/2018 08:00:48 Sinus tachycardia no longer present Electronically Signed On 01-10-18 17:11:10 CDT by Rashid Smith
--- NOTE | 2018-01-10 17:15 | EKG ---
Test Date: 2018-01-10 Test Time: 08:00:48 Nitroglycerin Supervisor: JARRED MEASUREMENT RESULTS: Intervals: Rate: 102 TX: 132 QRSD: 84 QT: 354 QTc: 461 [place]: P: 72 TX: 132 QRS: -25 T: 54 INTERPRETIVE STATEMENTS: Sinus tachycardia Otherwise normal ECG Compared to ECG 07/11/2017 11:15:12 Left-axis deviation no longer present Electronically Signed On 01-10-18 17:11:21 CDT by Rashid Smith
== END 2018-01-10 12:21 | disposition home or self-care (01) ==
LOC: ER 07:44
DX: I10 Essential (primary) hypertension (principal); E11.9 Type 2 diabetes mellitus without complications; Z79.4 Long term (current) use of insulin; Z88.2 Allergy status to sulfonamides; Z88.5 Allergy status to narcotic agent
CPT/HCPCS: 36415; 71045; 71275; 80048; 80307; 81003; 81025; 84484; 85025; 85379; 85610; 93005; 96361; 96374; 96375; 99285; J2405; J7030; Q9967

== ENCOUNTER 2019-03-04 08:40 | Emergency (ER) | payer SELFPAY ==
[2019-03-04] MEDS ORDERED: NA CHLORIDE 0.9% 500 ML ONE (10:10)
[2019-03-04 10:34] LABS: Absolute Lymphocytes (CBC) 1.8 K/uL (0.7-4.9); Basophils % 0.4 % (0-1.3); Hematocrit 40.1 % (36.0-45.0); Lymphocytes % 37.7 % (15.3-44.8); MPV 9.3 fL (7.6-11.3); RBC Red Blood Cell Count 4.52 M/uL (3.86-4.86)
[2019-03-04 10:39] LABS: Protime INR 0.97
--- NOTE | 2019-03-04 10:43 | RAD REPORT ---
EXAM DESCRIPTION: CT - Head Brain Wo Cont - 03/04/2019 10:35 am CLINICAL HISTORY: Dizziness;Headache Headache, drowsiness, right-sided ear pain COMPARISON: Head Brain Wo Cont dated 12/11/2016; HEAD BRAIN W O CONTRAST dated 04/01/2015 TECHNIQUE: All CT scans are performed using dose optimization technique as appropriate and may inclu de automated exposure control or mA/KV adjustment according to patient size. FINDINGS: No intracranial hemorrhage, hydrocephalus or extra-axial fluid collection.No areas of brai n edema or evidence of midline shift. The paranasal sinuses and mastoids are clear. The calvarium is intact. IMPRESSION: No acute intracranial abnormality.
--- NOTE | 2019-03-04 10:58 | RAD REPORT ---
EXAM DESCRIPTION: RAD - Chest Single View - 03/04/2019 10:37 am CLINICAL HISTORY: COUGH Chest pain. COMPARISON: Chest Single View dated 01/10/2018; Chest Pa And Lat (2 Views) dated 07/11/2017; Chest Sin gle View dated 06/08/2017; Chest Single View dated 12/11/2016 FINDINGS: Portable technique limits examination quality. The lungs are grossly clear. The heart is normal in size. No displaced fractures. IMPRESSION: No acute intrathoracic process suspected.
[2019-03-04 11:01] LABS: ALT/SGPT 28 U/L (12-78); AST/SGOT 11 U/L (15-37); Alkaline Phosphatase 85 U/L (45-117); BUN Blood Urea Nitrogen 27 mg/dL (7-18); Bicarbonate 33 mmol/L (21-32); Bilirubin Direct 0.2 mg/dL (0-0.2); Bilirubin Total 0.4 mg/dL (0.2-1.0); Glucose Level 118 mg/dL (74-106); NT PRO-BNP 19 pg/mL (<125); Potassium 3.7 mmol/L (3.5-5.1); Protein, Total 8.1 g/dL (6.4-8.2); Sodium Level 137 mmol/L (136-145); Troponin (Emerg Dept Use Only) < 0.02 ng/mL (0.0-0.045)
--- NOTE | 2019-03-04 11:12 | ER ---
Nurse's Notes [facility] Name: Bisi Santo Age: 49 yrs Sex: Female : 1970 Arrival Date: 03/04/2019 Time: 08:43 Bed 8 Private MD: Diagnosis: Impacted cerumen, right ear;Headache;Type 1 diabetes mellitus Presentation: 03/04 08:59 Presenting complaint: Patient states: 5 days ago i had trouble hearing out of my RIGHT tw2 ear, my neck and back are stiff, i am also having nausea and vomiting and congestion. Transition of care: patient was not received from another setting of care. Onset of symptoms was March 04, 2019. Risk Assessment: Do you want to hurt yourself or someone else? Patient reports no desire to harm self or others. Initial Sepsis Screen: Does the patient meet any 2 criteria? No. Patient's initial sepsis screen is negative. Does the patient have a suspected source of infection? No. Patient's initial sepsis screen is negative. Care prior to arrival: None. 08:59 Method Of Arrival: Ambulatory tw2 08:59 Acuity: SONIA 3 tw2 Triage Assessment: 09:02 General: Appears in no apparent distress. slender, Behavior is calm, cooperative, tw2 appropriate for age. Pain: Denies pain. EENT: Reports pain in right ear. TRANSIT DEPARTMENT CLERK: 09:19 LMP N/A - Hysterectomy tw2 Historical: - Allergies: 09:02 Codeine; tw2 09:02 Demerol; tw2 09:02 Morphine; tw2 09:02 Sulfa (Sulfonamide Antibiotics); tw2 - Home Meds: 09:02 metformin 1,000 mg oral tab 1 tab 2 times per day [Active]; Humulin 70/30 100 unit/mL tw2 (70-30) Sub-Q susp [Active]; furosemide 40 mg Oral tab 1 tab once daily [Active]; atorvastatin 20 mg oral tab 1 tab once daily [Active]; losartan 100 mg oral tab 1 tab once daily [Active]; - PMHx: 09:02 ADD/ADHD; Diabetes - IDDM; Hypertension; neuropathy divya lower legs; tw2 - PSHx: 09:02 Hysterectomy; Cholecystectomy; tw2 - Immunization history:: Adult Immunizations. - Social history:: Smoking status: . - Ebola Screening: : Patient denies travel to an Ebola-affected area in the 21 days before illness onset. Screenin:03 Abuse screen: Denies threats or abuse. Nutritional screening: No deficits noted. tw2 Tuberculosis screening: No symptoms or risk factors identified. Fall Risk None identified. Assessment: 09:18 General: Appears in no apparent distress. Behavior is calm, cooperative, appropriate tw2 for age. Pain: Denies pain. Neuro: Level of Consciousness is awake, alert, obeys commands, Oriented to person, place, time, situation. Cardiovascular: Heart tones S1 S2 Patient's skin is warm and dry. Respiratory: Airway is patent Respiratory effort is even, unlabored, Respiratory pattern is regular, symmetrical, Breath sounds are clear bilaterally. GI: Abdomen is flat, Bowel sounds present X 4 quads. Reports intolerance of fluids, intolerance of food, nausea, vomiting, Patient currently denies abdominal pain. : No signs and/or symptoms were reported regarding the genitourinary system. EENT: Reports pain in right ear. Derm: No signs and/or symptoms reported regarding the dermatologic system. Musculoskeletal: Circulation, motion, and sensation intact. Range of motion: intact in all extremities. 10:00 Reassessment: Patient appears in no apparent distress at this time. No changes from tw2 previously documented assessment. Patient and/or family updated on plan of care and expected duration. Pain level reassessed. Patient is alert, oriented x 3, equal unlabored respirations, skin warm/dry/pink. 10:42 Reassessment: Patient appears in no apparent distress at this time. No changes from aj1 previously documented assessment. Patient and/or family updated on plan of care and expected duration. Pain level reassessed. Patient is alert, oriented x 3, equal unlabored respirations, skin warm/dry/pink. 11:20 Reassessment: Patient appears in no apparent distress at this time. No changes from tw2 previously documented assessment. Patient and/or family updated on plan of care and expected duration. Pain level reassessed. Patient is alert, oriented x 3, equal unlabored respirations, skin warm/dry/pink. 11:27 Reassessment: Patient appears in no apparent distress at this time. Patient and/or tw2 family updated on plan of care and expected duration. Pain level reassessed. Patient is alert, oriented x 3, equal unlabored respirations, skin warm/dry/pink. "i can hear now" pt reports out of right ear Patient states feeling better. Patient states symptoms have improved. Vital Signs: 09:00 BP 134 / 92; Pulse 100; Resp 18; Temp 97.8(TE); Pulse Ox 99% on R/A; Weight 60.33 kg tw2 (M); Pain 0/10; 10:00 BP 135 / 94; Pulse 94; Resp 17; Pulse Ox 100% on R/A; tw2 10:41 BP 143 / 93; Pulse 93; Resp 17; Pulse Ox 100% on R/A; aj1 11:21 BP 144 / 99; Pulse 91; Resp 17; Pulse Ox 100% on R/A; tw2 ED Course: 08:43 Patient arrived in ED. as 08:54 Hari De La Garza MD is Attending Physician. charlene 08:59 Bed in low position. Call light in reach. tw2 09:00 Triage completed. tw2 09:01 Arm band placed on. tw2 09:17 Pia Rosado, RN is Primary Nurse. tw2 10:25 Missed attempt(s): 22 gauge in right antecubital area. Bleeding controlled, band aid jb1 applied, catheter tip intact. 10:30 Initial lab(s) drawn, by me, sent to lab. EKG done, by residential service technician. reviewed by Hari De La Garza MD. 10:30 Inserted saline lock: 22 gauge in left antecubital area, using aseptic technique. Blood jb1 collected. 10:36 CT Head Brain wo Cont In Process Unspecified. EDMS 10:37 XRAY Chest (1 view) In Process Unspecified. EDMS 10:47 EKG done, by residential service technician. reviewed by Hari De La Garza MD. at1 11:04 Ear irrigation: Route right ear with Other hydrogen peroxide amount 500ml Patient aj1 tolerated well large amount of crusted ear wax returned in collection guerra. 11:27 No provider procedures requiring assistance completed. IV discontinued, intact, tw2 bleeding controlled, No redness/swelling at site. Pressure dressing applied. Administered Medications: 11:04 Drug: NS 0.9% 1000 ml Route: IV; Rate: 125 ml/hr; Site: left antecubital; aj1 11:20 Follow up: IV Status: Order to discontinue infusion tw2 Outcome: 11:11 Discharge ordered by . charlene 11:27 Discharged to home ambulatory. tw2 11:27 Condition: stable 11:27 Discharge instructions given to patient, Instructed on discharge instructions, follow up and referral plans. no drinking with medication, no driving heavy equipment, medication usage, Demonstrated understanding of instructions, follow-up care, medications, Prescriptions given X 2. 11:27 Patient left the ED. tw2 Signatures: Dispatcher [employer] EDYoan Cruz jb1 Dominga Rivas, ISAIAH RN aj1 Hari De La Garza MD MD cha Martinez, Amelia as Gonzales, Amanda, research physician EKG Tat1 Pia Rosado, ISAIAH RN tw2 Corrections: (The following items were deleted from the chart) 10:40 10:39 Inserted saline lock: 22 gauge in left antecubital area, using aseptic technique. jb1 Blood collected. jb1
--- NOTE | 2019-03-04 11:12 | EDPHYS ---
Physician Documentation [facility] Name: Bisi Santo Age: 49 yrs Sex: Female : 1970 Arrival Date: 03/04/2019 Time: 08:43 Bed 8 Private MD: ED Physician Hari De La Garza HPI: 03/04 10:05 This 49 yrs old Black Female presents to ER via Ambulatory with complaints of Ear Pain, charlene Vomiting. 10:05 The patient presents with a fullness, pain. The complaints affect the right ear and charlene right episcopal. 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 LMP N/A - Hysterectomy tw2 Historical: - Allergies: 09:02 Codeine; tw2 09:02 Demerol; tw2 09:02 Morphine; tw2 09:02 Sulfa (Sulfonamide Antibiotics); tw2 - Home Meds: 09:02 metformin 1,000 mg oral tab 1 tab 2 times per day [Active]; Humulin 70/30 100 unit/mL tw2 (70-30) Sub-Q susp [Active]; furosemide 40 mg Oral tab 1 tab once daily [Active]; atorvastatin 20 mg oral tab 1 tab once daily [Active]; losartan 100 mg oral tab 1 tab once daily [Active]; - PMHx: 09:02 ADD/ADHD; Diabetes - IDDM; Hypertension; neuropathy divya lower legs; tw2 - PSHx: 09:02 Hysterectomy; Cholecystectomy; tw2 - Immunization history:: Adult Immunizations. - Social history:: Smoking status: . - Ebola Screening: : Patient denies travel to an Ebola-affected area in the 21 days before illness onset. ROS: 10:06 Constitutional: Negative for fever, chills, and weight loss, Eyes: Negative for injury, charlene pain, redness, and discharge, Neck: Negative for injury, pain, and swelling, Cardiovascular: Negative for chest pain, palpitations, and edema, Respiratory: Negative for shortness of breath, cough, wheezing, and pleuritic chest pain, Abdomen/GI: Negative for abdominal pain, nausea, vomiting, diarrhea, and constipation, Back: Negative for injury and pain, : Negative for injury, bleeding, discharge, and swelling, MS/Extremity: Negative for injury and deformity, Skin: Negative for injury, rash, and discoloration, Neuro: Negative for headache, weakness, numbness, tingling, and seizure, Psych: Negative for depression, anxiety, suicide ideation, homicidal ideation, and hallucinations, Allergy/Immunology: Negative for hives, rash, and allergies, Endocrine: Negative for neck swelling, polydipsia, polyuria, polyphagia, and marked weight changes, Hematologic/Lymphatic: Negative for swollen nodes, abnormal bleeding, and unusual bruising. 10:06 ENT: Positive for ear pain. 10:06 Neuro: Positive for headache. Exam: 10:06 Constitutional: This is a well developed, well nourished patient who is awake, alert, charlene and in no acute distress. Head/Face: Normocephalic, atraumatic. Eyes: Pupils equal round and reactive to light, extra-ocular motions intact. Lids and lashes normal. Conjunctiva and sclera are non-icteric and not injected. Cornea within normal limits. Periorbital areas with no swelling, redness, or edema. Neck: Trachea midline, no thyromegaly or masses palpated, and no cervical lymphadenopathy. Supple, full range of motion without nuchal rigidity, or vertebral point tenderness. No Meningismus. Chest/axilla: Normal chest wall appearance and motion. Nontender with no deformity. No lesions are appreciated. Cardiovascular: Regular rate and rhythm with a normal S1 and S2. No gallops, murmurs, or rubs. Normal PMI, no JVD. No pulse deficits. Respiratory: Lungs have equal breath sounds bilaterally, clear to auscultation and percussion. No rales, rhonchi or wheezes noted. No increased work of breathing, no retractions or nasal flaring. Abdomen/GI: Soft, non-tender, with normal bowel sounds. No distension or tympany. No guarding or rebound. No evidence of tenderness throughout. Back: No spinal tenderness. No costovertebral tenderness. Full range of motion. Female : Normal external genitalia. Skin: Warm, dry with normal turgor. Normal color with no rashes, no lesions, and no evidence of cellulitis. MS/ Extremity: Pulses equal, no cyanosis. Neurovascular intact. Full, normal range of motion. Neuro: Awake and alert, GCS 15, oriented to person, place, time, and situation. Cranial nerves II-XII grossly intact. Motor strength 5/5 in all extremities. Sensory grossly intact. Cerebellar exam normal. Normal gait. Psych: Awake, alert, with orientation to person, place and time. Behavior, mood, and affect are within normal limits. 10:06 ENT: Ear canal(s): cerumen impaction, that is mild, that is moderate, occluding the right ear canal. Vital Signs: 09:00 BP 134 / 92; Pulse 100; Resp 18; Temp 97.8(TE); Pulse Ox 99% on R/A; Weight 60.33 kg tw2 (M); Pain 0/10; 10:00 BP 135 / 94; Pulse 94; Resp 17; Pulse Ox 100% on R/A; tw2 10:41 BP 143 / 93; Pulse 93; Resp 17; Pulse Ox 100% on R/A; aj1 11:21 BP 144 / 99; Pulse 91; Resp 17; Pulse Ox 100% on R/A; tw2 MDM: 08:[address] [facility] 10: Data reviewed: vital signs, nurses notes, lab test result(s), EKG, radiologic studies, [facility] CT scan, plain films. 03/04 10:05 Order name: Basic Metabolic Panel; Complete Time: 11:10 [facility] 03/04 10:05 Order name: CBC with Diff; Complete Time: 10:38 [facility] 03/04 10:05 Order name: LFT's; Complete Time: 11:10 [facility] 03/04 10:05 Order name: Magnesium; Complete Time: 11:10 [facility] 03/04 10:05 Order name: NT PRO-BNP; Complete Time: 11:10 [facility] 03/04 10:05 Order name: PT-INR; Complete Time: 10:54 [facility] 03/04 10:05 Order name: Troponin (emerg Dept Use Only); Complete Time: 11:10 [facility] 03/04 10:05 Order name: XRAY Chest (1 view); Complete Time: 11:10 [facility] 03/04 10:05 Order name: EKG; Complete Time: 10:06 [facility] 03/04 10:05 Order name: Cardiac monitoring; Complete Time: 10:39 [facility] 03/04 10:05 Order name: EKG - Nurse/Tech; Complete Time: 10:39 [facility] 03/04 10:05 Order name: IV Saline Lock; Complete Time: 10:39 [facility] 03/04 10:05 Order name: CT Head Brain wo Cont; Complete Time: 10:54 [facility] 03/04 10:05 Order name: Labs collected and sent; Complete Time: 10:39 [facility] 03/04 10:05 Order name: O2 Per Protocol; Complete Time: 10:39 [facility] 03/04 10:05 Order name: O2 Sat Monitoring; Complete Time: 10:39 [facility] 03/04 10:05 Order name: Misc. Order: irrigate right ear h2o / h202; Complete Time: 11:03 [facility] Administered Medications: 11:04 Drug: NS 0.9% 1000 ml Route: IV; Rate: 125 ml/hr; Site: left antecubital; aj1 11:20 Follow up: IV Status: Order to discontinue infusion tw2 Disposition: 03/04/19 11:11 Discharged to Home. Impression: Impacted cerumen, right ear, Headache, Type 1 diabetes mellitus. - Condition is Stable. - Discharge Instructions: Earwax Buildup, Adult, Type 1 Diabetes Mellitus, Diagnosis, Adult, General Headache Without Cause, General Headache Without Cause, Omtu-[id number], Type 1 Diabetes Mellitus, Self Care, Adult, Type 1 Diabetes Mellitus, Diagnosis, Adult, [id number], Ear Irrigation. - Prescriptions for Fioricet with Codeine 50- 325-40-30 mg Oral capsule - take 1 capsule by ORAL route every 4 hours as needed not to exceed 6 capsules per 24hrs; 20 capsule. Zofran 4 mg Oral Tablet - take 1 tablet by ORAL route every 12 hours As needed; 20 tablet. - Medication Reconciliation Form, Thank You Letter, Antibiotic Education, Prescription Opioid Use, Work release form form. - Follow up: Private Physician; When: 2 - 3 days; Reason: Recheck today's complaints, Re-evaluation by your physician. - Problem is new. - Symptoms have improved. Signatures: Dispatcher [employer] EDMS Dominga Rivas RN RN aj1 Hari De La Garza MD MD cha Wise, Tara, RN RN tw2 Corrections: (The following items were deleted from the chart) 11:27 11:11 03/04/2019 11:11 Discharged to Home. Impression: Impacted cerumen, right ear; tw2 Headache; Type 1 diabetes mellitus. Condition is Stable. Discharge Instructions: Earwax Buildup, Adult, Type 1 Diabetes Mellitus, Diagnosis, Adult, General Headache Without Cause, General Headache Without Cause, Eyaf-zg-[id number], Type 1 Diabetes Mellitus, Self Care, Adult, Type 1 Diabetes Mellitus, Diagnosis, Adult, Qquf-[id number], Ear Irrigation. Prescriptions for Fioricet with Codeine 37-370-44-30 mg Oral capsule - take 1 capsule by ORAL route every 4 hours as needed not to exceed 6 capsules per 24hrs; 20 capsule. and Forms are Medication Reconciliation Form, Thank You Letter, Antibiotic Education, Prescription Opioid Use. Follow up: Private Physician; When: 2 - 3 days; Reason: Recheck today's complaints, Re-evaluation by your physician. Problem is new. Symptoms have improved. charlene
[2019-03-04 11:38] VITALS: TEMP 97.8
[2019-03-04 11:39] VITALS: O2SAT 100
[2019-03-04 11:41] VITALS: BP 144/99
--- NOTE | 2019-03-04 12:11 | EKG ---
Test Date: 2019-03-04 Test Time: 10:22:00 Central Supply Aide: SHELIA MEASUREMENT RESULTS: Intervals: Rate: 97 IL: 132 QRSD: 88 QT: 362 QTc: 459 [place]: P: 74 IL: 132 QRS: -26 T: 51 INTERPRETIVE STATEMENTS: Normal sinus rhythm Normal ECG Compared to ECG 01/10/2018 09:30:21 No significant changes Electronically Signed On 03-04-19 12:10:17 CDT by Ruslan Petit
== END 2019-03-04 11:27 | disposition home or self-care (01) ==
LOC: ER 08:40
DX: H61.21 Impacted cerumen, right ear (principal); R51 Headache; E10.8 Type 1 diabetes mellitus with unspecified complications; I10 Essential (primary) hypertension; Z88.6 Allergy status to analgesic agent; Z88.2 Allergy status to sulfonamides
CPT/HCPCS: 36415; 70450; 71045; 80048; 80076; 83735; 83880; 84484; 85025; 85610; 93005; 99284; J7040

== ENCOUNTER 2019-09-04 11:03 | Emergency (ER) | payer SELFPAY ==
[2019-09-04] MEDS ORDERED: NA CHLORIDE 0.9% 1,000 ML ONE (11:24)
[2019-09-04] MEDS ORDERED: PROMETHAZINE INJ 25 MG/ML AMP ONE (11:24)
[2019-09-04 11:31] LABS: Basophils % 0.6 % (0-1.3); Hematocrit 37.7 % (36.0-45.0); Lymphocytes % 31.2 % (15.3-44.8); MPV 8.9 fL (7.6-11.3); RBC Red Blood Cell Count 4.29 M/uL (3.86-4.86)
[2019-09-04 11:39] LABS: Urine Blood TRACE (NEG); Urine Glucose NEGATIVE (NEG); Urine Protein 3+ (NEG); Urine Specific Gravity >1.030 (1.005-1.030)
[2019-09-04 11:49] LABS: Albumin 3.4 g/dL (3.4-5.0); Bilirubin Direct 0.1 mg/dL (0-0.2); Bilirubin Total 0.3 mg/dL (0.2-1.0); Protein, Total 7.5 g/dL (6.4-8.2)
[2019-09-04 11:50] LABS: Urine Bacteria <20 /HPF (<20); Urine Coarse Granular Casts 0-5 /LPF (NONE SEEN); Urine RBC <5 /HPF (NONE SEEN)
[2019-09-04 11:53] LABS: Urine Culture Reflex Order NOT NEEDED
--- NOTE | 2019-09-04 13:22 | EDPHYS ---
Physician Documentation [facility] Name: Bisi Santo Age: 49 yrs Sex: Female : 1970 Arrival Date: 09/04/2019 Time: 11:06 Bed 6 Private MD: out of town, doctor ED Physician Jules Joy HPI: 09/03 11:18 This 49 yrs old Black Female presents to ER via Ambulatory with complaints of Vomiting. snw 11:18 The patient presents to the emergency department with nausea, that is moderate, snw vomiting. Onset: The symptoms/episode began/occurred suddenly, 5 day(s) ago, and became persistent. Possible causes: bad food exposure, possibly bad restaurant food. Associated signs and symptoms: The patient has no apparent associated signs or symptoms. Severity of symptoms: At their worst the symptoms were moderate. It is unknown whether or not the patient has had similar symptoms in the past. It is unknown whether or not the patient has recently seen a physician. 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 ROS: 11:18 Constitutional: Negative for fever, chills, and weight loss, Eyes: Negative for injury, snw pain, redness, and discharge, ENT: Negative for injury, pain, and discharge, Neck: Negative for injury, pain, and swelling, Cardiovascular: Negative for chest pain, palpitations, and edema, Respiratory: Negative for shortness of breath, cough, wheezing, and pleuritic chest pain, Back: Negative for injury and pain, : Negative for injury, bleeding, discharge, and swelling, MS/Extremity: Negative for injury and deformity, Skin: Negative for injury, rash, and discoloration, Neuro: Negative for headache, weakness, numbness, tingling, and seizure, Psych: Negative for depression, anxiety, suicide ideation, homicidal ideation, and hallucinations. 11:18 Abdomen/GI: Positive for nausea and vomiting. Exam: 11:17 Constitutional: This is a well developed, well nourished patient who is awake, alert, snw and in no acute distress. Head/Face: Normocephalic, atraumatic. 11:17 ENT: Nares patent. No nasal discharge, no septal abnormalities noted. Tympanic membranes are normal and external auditory canals are clear. Oropharynx with no redness, swelling, or masses, exudates, or evidence of obstruction, uvula midline. Mucous membranes moist. Neck: Trachea midline, no thyromegaly or masses palpated, and no cervical lymphadenopathy. Supple, full range of motion without nuchal rigidity, or vertebral point tenderness. No Meningismus. Chest/axilla: Normal chest wall appearance and motion. Nontender with no deformity. No lesions are appreciated. Cardiovascular: Regular rate and rhythm with a normal S1 and S2. No gallops, murmurs, or rubs. Normal PMI, no JVD. No pulse deficits. Respiratory: Lungs have equal breath sounds bilaterally, clear to auscultation and percussion. No rales, rhonchi or wheezes noted. No increased work of breathing, no retractions or nasal flaring. Abdomen/GI: Soft, non-tender, with normal bowel sounds. No distension or tympany. No guarding or rebound. No evidence of tenderness throughout. Back: No spinal tenderness. No costovertebral tenderness. Full range of motion. MS/ Extremity: Pulses equal, no cyanosis. Neurovascular intact. Full, normal range of motion. Neuro: Awake and alert, GCS 15, oriented to person, place, time, and situation. Cranial nerves II-XII grossly intact. Motor strength 5/5 in all extremities. Sensory grossly intact. Cerebellar exam normal. Normal gait. Psych: Awake, alert, with orientation to person, place and time. Behavior, mood, and affect are within normal limits. 11:17 Eyes: Periorbital structures: erythema, that is mild, bilaterally, Extraocular movements: no acute changes. 11:17 Skin: Appearance: normal except for affected area, Turgor: is good. Vital Signs: 11:06 BP 155 / 92; Pulse 103; Resp 18 S; Temp 100.0(O); Pulse Ox 99% on R/A; Weight 63.5 kg aa5 (R); Height 5 ft. 2 in. (157.48 cm) (R); Pain 0/10; 11:56 BP 180 / 92; Pulse 95; Resp 16; Temp 98.3(TE); Pulse Ox 100% on R/A; mh5 12:42 BP 183 / 89; Pulse 90; Resp 16; Temp 98.5(TE); Pulse Ox 100% on R/A; mh5 14:02 BP 171 / 86; Pulse 88; Resp 17 S; Pulse Ox 100% on R/A; jl7 11:06 Body Mass Index 25.61 (63.50 kg, 157.48 cm) aa5 MDM: 11:09 Patient medically screened. snw 13:17 Data reviewed: vital signs, nurses notes. Data interpreted: Pulse oximetry: on room air snw is 100 %. Interpretation: normal. Counseling: I had a detailed discussion with the patient and/or guardian regarding: the historical points, exam findings, and any diagnostic results supporting the discharge/admit diagnosis, the presence of at least one elevated blood pressure reading (>120/80) during this emergency department visit, lab results, the need for outpatient follow up, to return to the emergency department if symptoms worsen or persist or if there are any questions or concerns that arise at home. Response to treatment: the patient's symptoms have markedly improved after treatment. Special discussion: Based on the history and exam findings, there is no indication for further emergent testing or inpatient evaluation. I discussed with the patient/guardian the need to see the primary care provider for further evaluation of the symptoms. 09/03 11:11 Order name: Basic Metabolic Panel; Complete Time: 11:54 snw 09/03 11:11 Order name: CBC with Diff; Complete Time: 11:38 snw 09/03 11:11 Order name: Creatinine for Radiology; Complete Time: :54 snw 09/03 11:11 Order name: Hepatic Function; Complete Time: 11:54 snw 09/03 11:11 Order name: Lipase; Complete Time: 11:54 snw 09/03 11:11 Order name: Urine Culture snw 09/03 11:11 Order name: IV Saline Lock; Complete Time: 11:26 snw 09/03 11:11 Order name: Labs collected and sent; Complete Time: 11:26 snw 09/03 11:11 Order name: Urine Microscopic Only; Complete Time: 11:54 snw 09/03 11:29 Order name: Glucose, Ancillary Testing; Complete Time: 11:35 EDNY 09/03 11:38 Order name: Urine Dipstick--Ancillary (enter results); Complete Time: 11:42 eb 09/03 11:11 Order name: FSBS; Complete Time: 11:26 snw 09/03 11:11 Order name: Urine Dipstick-Ancillary (obtain specimen); Complete Time: 11:34 snw Administered Medications: 11:22 Drug: NS 0.9% 1000 ml Route: IV; Rate: 1 bolus; Site: right antecubital; em 13:34 Follow up: IV Status: Completed infusion; IV Intake: 1000ml em 11:22 Drug: Phenergan 6.25 mg Route: IVP; Site: right antecubital; em 12:07 Follow up: Response: No adverse reaction; Marked relief of symptoms; Nausea is decreasedem 13:33 Drug: NS 0.9% 500 ml Route: IV; Rate: bolus; Site: right antecubital; em Disposition: 16:52 Co-signature as Attending Physician, Jules Joy MD I agree with the assessment and kdr plan of care. Disposition: 09/04/19 13:20 Discharged to Home. Impression: Volume depletion, Nausea with vomiting, unspecified. - Condition is Stable. - Discharge Instructions: Dehydration, Adult, Clear Liquid Diet, Adult, Nausea and Vomiting, Adult, Rehydration, Adult. - Medication Reconciliation Form, Thank You Letter, Antibiotic Education, Prescription Opioid Use form. - Follow up: Emergency Department; When: As needed; Reason: Worsening of condition. Follow up: Private Physician; When: 5 - 6 days; Reason: Recheck today's complaints, Continuance of care, Re-evaluation by your physician. Signatures: Dispatcher [employer] Jules Martinez MD MD kdr Therrien, Shelly, FENCE SETTER-C FENCE SETTER-Csnw Ian Beltran, RN RN Damari Anthony, RN RN aa5 Zulma Benitez RN RN jl7 Corrections: (The following items were deleted from the chart) 11:11 Cheek ordered. snw em 14:02 13:20 09/04/2019 13:20 Discharged to Home. Impression: Volume depletion; Nausea with jl7 vomiting, unspecified. Condition is Stable. Forms are Medication Reconciliation Form, Thank You Letter, Antibiotic Education, Prescription Opioid Use. Follow up: Emergency Department; When: As needed; Reason: Worsening of condition. Follow up: Private Physician; When: 5 - 6 days; Reason: Recheck today's complaints, Continuance of care, Re-evaluation by your physician. loreto
--- NOTE | 2019-09-04 13:22 | ER ---
Nurse's Notes [facility] Name: Bisi Santo Age: 49 yrs Sex: Female : 1970 Arrival Date: 09/04/2019 Time: 11:06 Bed 6 Private MD: out of town, doctor Diagnosis: Volume depletion;Nausea with vomiting, unspecified Presentation: 09/03 11:06 Chief complaint: Patient states: vomiting x 5 days after eating whataburger. Pt denies aa5 abd pain, reports diarrhea yesterday but has resolved. Pt reports cough that is chronic, pt states "my family smokes". Pt has temp of 100.0 F here in ER, pt states "I didn't know I had a fever". 11:06 Coronavirus screen: Patient reports a cough. Patient denies shortness of breath or aa5 difficulty breathing. Patient denies measured and/or subjective temperature greater than 100.4F prior to today's visit. Patient denies travel on a cruise ship or to a country the [facility] currently lists as an affected area. Patient denies contact with known and/or suspected case of COVID-19. Ebola Screen: Patient negative for fever greater than or equal to 101.5 degrees Fahrenheit, and additional compatible Ebola Virus Disease symptoms. Initial Sepsis Screen: Does the patient meet any 2 criteria? HR > 90 bpm. No. Patient's initial sepsis screen is negative. Does the patient have a suspected source of infection? No. Patient's initial sepsis screen is negative. Risk Assessment: Do you want to hurt yourself or someone else? Patient reports no desire to harm self or others. Onset of symptoms was August 2019. 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 Screenin:20 Abuse screen: Denies threats or abuse. Nutritional screening: No deficits noted. em Tuberculosis screening: No symptoms or risk factors identified. Fall Risk None identified. Assessment: 11:20 General: Appears in no apparent distress. uncomfortable, Behavior is calm, cooperative, em appropriate for age, Denies fever. Pain: Denies pain. Neuro: Level of Consciousness is awake, alert, obeys commands, Oriented to person, place, time, situation, Appropriate for age. Cardiovascular: Capillary refill < 3 seconds. Respiratory: Airway is patent Respiratory effort is even, unlabored, Respiratory pattern is regular, symmetrical, Denies cough. GI: Abdomen is flat, Bowel sounds present X 4 quads. Abd is soft and non tender X 4 quads. Reports diarrhea, nausea, vomiting, since 3-4 days. Derm: Skin is intact, is healthy with good turgor, Skin is clammy, Skin is normal, Skin temperature is cool. Musculoskeletal: Capillary refill < 3 seconds, Range of motion: intact in all extremities. 12:03 Reassessment: Patient appears in no apparent distress at this time. Patient and/or em family updated on plan of care and expected duration. Pain level reassessed. Patient is alert, oriented x 3, equal unlabored respirations, skin warm/dry/pink. reports nausea has improved. 13:30 Reassessment: Patient appears in no apparent distress at this time. Patient and/or em family updated on plan of care and expected duration. Pain level reassessed. Patient is alert, oriented x 3, equal unlabored respirations, skin warm/dry/pink. pt will be discharged after 500 NS bolus complete. Vital Signs: 11:06 BP 155 / 92; Pulse 103; Resp 18 S; Temp 100.0(O); Pulse Ox 99% on R/A; Weight 63.5 kg aa5 (R); Height 5 ft. 2 in. (157.48 cm) (R); Pain 0/10; 11:56 BP 180 / 92; Pulse 95; Resp 16; Temp 98.3(TE); Pulse Ox 100% on R/A; mh5 12:42 BP 183 / 89; Pulse 90; Resp 16; Temp 98.5(TE); Pulse Ox 100% on R/A; mh5 14:02 BP 171 / 86; Pulse 88; Resp 17 S; Pulse Ox 100% on R/A; jl7 11:06 Body Mass Index 25.61 (63.50 kg, 157.48 cm) aa5 ED Course: 11:06 Patient arrived in ED. mr 11:06 out of town, doctor is Private Physician. mr 11:06 Arm band placed on. aa5 11:09 [facility] snw 11:09 Jules Joy MD is Attending Physician. snw 11:18 Triage completed. aa5 11:20 Initial lab(s) drawn, by ne, sent to lab. Inserted saline lock: 20 gauge in right em antecubital area, using aseptic technique. Blood collected. 11:25 Ian Beltran, RN is Primary Nurse. em 11:38 Urine collected: urine has been sent to lab as ordered, per Dominick Hill RN. eb 11:46 Patient has correct armband on for positive identification. Bed in low position. Call [facility] light in reach. Side rails up X 1. Pulse ox on. NIBP on. 13:23 No provider procedures requiring assistance completed. IV discontinued, intact, em bleeding controlled, No redness/swelling at site. Pressure dressing applied. Administered Medications: 11:22 Drug: NS 0.9% 1000 ml Route: IV; Rate: 1 bolus; Site: right antecubital; em 13:34 Follow up: IV Status: Completed infusion; IV Intake: 1000ml em 11:22 Drug: Phenergan 6.25 mg Route: IVP; Site: right antecubital; em 12:07 Follow up: Response: No adverse reaction; Marked relief of symptoms; Nausea is decreasedem 13:33 Drug: NS 0.9% 500 ml Route: IV; Rate: bolus; Site: right antecubital; em Intake: 13:34 IV: 1000ml; Total: 1000ml. em Outcome: 13:20 Discharge ordered by . sn 14:02 Discharged to home ambulatory. jl7 14:02 Condition: stable 14:02 Discharge instructions given to patient, Instructed on discharge instructions, follow up and referral plans. Demonstrated understanding of instructions, follow-up care. 14:02 Patient left the ED. 7 Signatures: Maria Elena Irwin FNP-C FNP-Saniya Silver mr Beltran, Ian, RN RN em Rufino, Damari, RN RN aa5 Laura Lopez Jahala, RN RN jl7 Brittney Barros
[2019-09-04] MEDS ORDERED: NA CHLORIDE 0.9% 500 ML ONE (13:36)
[2019-09-04 14:20] VITALS: O2SAT 100
[2019-09-04 14:25] VITALS: TEMP 98.5
[2019-09-04 14:26] VITALS: BP 171/86
== END 2019-09-04 14:02 | disposition home or self-care (01) ==
LOC: ER 11:03
DX: E86.9 Volume depletion, unspecified (principal); I10 Essential (primary) hypertension; Z88.2 Allergy status to sulfonamides; Z88.5 Allergy status to narcotic agent
CPT/HCPCS: 36415; 80048; 80076; 81003; 81015; 82947; 83690; 85025; 87086; 87088; 96361; 96374; 99284; J2550; J7030; J7040

== ENCOUNTER 2020-04-04 09:35 | Emergency (ER) | payer SELFPAY ==
[2020-04-04] MEDS ORDERED: FLUORESCEIN SODIUM 1 MG/WRAP ONE (10:27)
[2020-04-04] MEDS ORDERED: TETRACAINE HCL 0.5% 4ML OPTH ONE (10:27)
[2020-04-04] MEDS ORDERED: ERYTHROMYCIN 1 APPL/1 GM TUBE OP ONE (10:30)
--- NOTE | 2020-04-04 10:54 | EDPHYS ---
Physician Documentation [facility] Name: Bisi Santo Age: 50 yrs Sex: Female : 1970 Arrival Date: 04/04/2020 Time: 09:36 Bed 18 Private MD: ED Physician Jules Joy HPI: 04/04 10:56 This 50 yrs old Black Female presents to ER via Ambulatory with complaints of Foreign snw Body In Eye. 10:56 The patient is experiencing foreign body sensation, The patient sustained contusion, a snw scratch, to the left eye. Onset: The symptoms/episode began/occurred acutely. Duration: the symptoms are continuous. Aggravated by blinking, rubbing. Associated signs and symptoms: Pertinent positives: eyelid edema. Severity of symptoms: At their worst the symptoms were mild moderate. The patient has not experienced similar symptoms in the past. The patient has not recently seen a physician. SCALER: 09:59 LMP N/A - Hysterectomy iw Historical: - Allergies: 12:03 Codeine; ll2 12:03 Demerol; ll2 12:03 Morphine; ll2 12:03 Sulfa (Sulfonamide Antibiotics); ll2 - PMHx: 12:03 ADD/ADHD; Diabetes - IDDM; Hypertension; neuropathy divya lower legs; ll2 - PSHx: 09:59 Hysterectomy; Cholecystectomy; cyst removed from groin; Carpal Tunnel Repair; iw - Immunization history:: Adult Immunizations unknown. - Social history:: Smoking status: Smoking status: Patient denies any tobacco usage or history of. ROS: 10:57 Constitutional: Negative for fever, chills, and weight loss, ENT: Negative for injury, snw pain, and discharge, Neck: Negative for injury, pain, and swelling, Cardiovascular: Negative for chest pain, palpitations, and edema, Respiratory: Negative for shortness of breath, cough, wheezing, and pleuritic chest pain, Abdomen/GI: Negative for abdominal pain, nausea, vomiting, diarrhea, and constipation, Back: Negative for injury and pain, : Negative for injury, bleeding, discharge, and swelling, MS/Extremity: Negative for injury and deformity, Skin: Negative for injury, rash, and discoloration, Neuro: Negative for headache, weakness, numbness, tingling, and seizure, Psych: Negative for depression, anxiety, suicide ideation, homicidal ideation, and hallucinations. 10:57 Eyes: Positive for foreign body sensation, injury or acute deformity, swelling, of the left upper eyelid, iris of left eye, inner aspect of conjunctiva of left eye and left lower eyelid. Exam: 11:04 Constitutional: This is a well developed, well nourished patient who is awake, alert, snw and in no acute distress. Head/Face: Normocephalic, atraumatic. ENT: Nares patent. No nasal discharge, no septal abnormalities noted. Tympanic membranes are normal and external auditory canals are clear. Oropharynx with no redness, swelling, or masses, exudates, or evidence of obstruction, uvula midline. Mucous membranes moist. Neck: Trachea midline, no thyromegaly or masses palpated, and no cervical lymphadenopathy. Supple, full range of motion without nuchal rigidity, or vertebral point tenderness. No Meningismus. Chest/axilla: Normal chest wall appearance and motion. Nontender with no deformity. No lesions are appreciated. Cardiovascular: Regular rate and rhythm with a normal S1 and S2. No gallops, murmurs, or rubs. Normal PMI, no JVD. No pulse deficits. Respiratory: Lungs have equal breath sounds bilaterally, clear to auscultation and percussion. No rales, rhonchi or wheezes noted. No increased work of breathing, no retractions or nasal flaring. Abdomen/GI: Soft, non-tender, with normal bowel sounds. No distension or tympany. No guarding or rebound. No evidence of tenderness throughout. Back: No spinal tenderness. No costovertebral tenderness. Full range of motion. Skin: Warm, dry with normal turgor. Normal color with no rashes, no lesions, and no evidence of cellulitis. MS/ Extremity: Pulses equal, no cyanosis. Neurovascular intact. Full, normal range of motion. Neuro: Awake and alert, GCS 15, oriented to person, place, time, and situation. Cranial nerves II-XII grossly intact. Motor strength 5/5 in all extremities. Sensory grossly intact. Cerebellar exam normal. Normal gait. Psych: Awake, alert, with orientation to person, place and time. Behavior, mood, and affect are within normal limits. 11:04 Eyes: Periorbital structures: swelling, that is mild, bilaterally, Pupils: no acute changes, equal, round, and reactive to light and accomodation, Extraocular movements: intact throughout, Conjunctiva: subconjunctival hemorrhage(s), seen in the left eye, at 3 o'clock, Corneas: are normal, Sclera: no appreciated abnormality, Anterior chamber: no acute changes, Lids and lashes: edema, bilaterally. Vital Signs: 09:56 BP 185 / 103; Pulse 87; Resp 16; Temp 98.3; Pulse Ox 99% on R/A; Weight 58.06 kg; iw Height 5 ft. 2 in. (157.48 cm); Pain 6/10; 11:45 BP 195 / 96; Pulse 86; Resp 18; Temp 98.6; Pulse Ox 100% on R/A; ll2 09:56 Body Mass Index 23.41 (58.06 kg, 157.48 cm) iw Visual Acuity: 10:35 Left Eye Visual acuity 20/50, ; Right Eye Visual acuity 20/35, ; Both Eyes Visual jl7 acuity 20/35; Without Lenses; MDM: 10:52 Patient medically screened. snw 10:54 Data reviewed: vital signs, nurses notes. Data interpreted: Pulse oximetry: on room air snw is 99 %. Interpretation: normal. Counseling: I had a detailed discussion with the patient and/or guardian regarding: the historical points, exam findings, and any diagnostic results supporting the discharge/admit diagnosis, the presence of at least one elevated blood pressure reading (>120/80) during this emergency department visit, the need for outpatient follow up, to return to the emergency department if symptoms worsen or persist or if there are any questions or concerns that arise at home. Special discussion: Based on the history and exam findings, there is no indication for further emergent testing or inpatient evaluation. I discussed with the patient/guardian the need to see the opthamologist for further evaluation of the symptoms. 04/04 10:10 Order name: Visual Acuity; Complete Time: 10:35 snw 04/04 10:10 Order name: Fluoresene Opth strip; Complete Time: 10:20 snw Administered Medications: 10:45 Drug: Tetracaine Drops 0.5 % 1 drops {Note: Administered by TYLER Arredondo.} Route: ll2 Ophthalmic; Site: left eye; 11:00 Follow up: Response: No adverse reaction ll2 11:49 Drug: ERYTHromycin Ointment 1 application Route: Ophthalmic; Site: left eye; ll2 11:49 Follow up: Response: Medication administered at discharge. ll2 Disposition: 14:43 Co-signature as Attending Physician, Jules Joy MD I agree with the assessment and kdr plan of care. Disposition: 04/04/20 10:53 Discharged to Home. Impression: Left subconjunctival hemorrhage s/p eye trauma. - Condition is Stable. - Discharge Instructions: Subconjunctival Hemorrhage, Eye Foreign Body, [id number]-[id number], Eye Contusion, [id number]. - Prescriptions for Erythromycin 5 mg/gram (0.5 %) Ophthalmic Ointment - apply 1 ribbon by OPHTHALMIC route every 8 hours; 1 tube. - Medication Reconciliation Form, Thank You Letter, Antibiotic Education, Prescription Opioid Use form. - Follow up: Emergency Department; When: As needed; Reason: Worsening of condition. Follow up: Janett Henry MD; When: 1 - 2 days; Reason: Recheck today's complaints, Continuance of care. - Notes: Signatures: Jules Joy MD MD [facility] Maria Elena Mancera, CRANE OILER-C CRANE OILER-Csnw Joan Balbuena, ISAIAH RN Yun Loo RN RN ll2 Corrections: (The following items were deleted from the chart) 12:03 09:59 Allergies: Codeine; ll2 12:03 09:59 Allergies: Demerol; ll2 12:03 09:59 Allergies: Morphine; ll2 12:03 09:59 Allergies: Sulfa (Sulfonamide Antibiotics); ll2 12:03 09:59 PMHx: ADD/ADHD; ll2 12:03 09:59 PMHx: Diabetes - IDDM; ll2 12:03 09:59 PMHx: Hypertension; iw ll2 12:03 09:59 PMHx: neuropathy divya lower legs; iw ll2 12:04 10:53 04/04/2020 10:53 Discharged to Home. Impression: Left subconjunctival hemorrhage ll2 s/p eye trauma. Condition is Stable. Forms are Medication Reconciliation Form, Thank You Letter, Antibiotic Education, Prescription Opioid Use. Follow up: Emergency Department; When: As needed; Reason: Worsening of condition. Follow up: Janett Henry; When: 1 - 2 days; Reason: Recheck today's complaints, Continuance of care. [facility] 17:23 12:04 04/04/2020 10:53 Discharged to Home. Impression: Left subconjunctival hemorrhage ll2 s/p eye trauma. Condition is Stable. Discharge Instructions: Subconjunctival Hemorrhage, Eye Foreign Body, [id number], Eye Contusion, Qnsv-yo-Ozji. Prescriptions for Erythromycin 5 mg/gram (0.5 %) Ophthalmic Ointment - apply 1 ribbon by OPHTHALMIC route every 8 hours; 1 tube. and Forms are Medication Reconciliation Form, Thank You Letter, Antibiotic Education, Prescription Opioid Use. Follow up: Emergency Department; When: As needed; Reason: Worsening of condition. Follow up: Janett Henry; When: 1 - 2 days; Reason: Recheck today's complaints, Continuance of care. ll2
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
[2020-04-04 12:39] VITALS: BP 195/96; TEMP 98.6; O2SAT 100
== END 2020-04-04 17:23 | disposition home or self-care (01) ==
LOC: ER 09:35
DX: H11.32 Conjunctival hemorrhage, left eye (principal); I10 Essential (primary) hypertension; Z88.2 Allergy status to sulfonamides; Z88.5 Allergy status to narcotic agent
CPT/HCPCS: 99283

== ENCOUNTER 2020-05-28 10:56 | Inpatient (IN) | payer SELFPAY ==
[2020-05-28 11:43] LABS: Urine Blood 3+ (NEG); Urine Glucose 2+ (NEG); Urine Protein 3+ (NEG); Urine Specific Gravity 1.025 (1.005-1.030)
[2020-05-28 12:32] LABS: Urine Bacteria 20-50 /HPF (<20); Urine RBC LOADED /HPF (NONE SEEN)
[2020-05-28] MEDS ORDERED: NA CHLORIDE 0.9% 1,000 ML ONE (13:35)
--- NOTE | 2020-05-28 13:51 | RAD REPORT ---
EXAM DESCRIPTION: CT - Stone Protocol - 05/28/2020 1:38 pm CLINICAL HISTORY: Abdominal pain. Flank pain COMPARISON: 2017 TECHNIQUE: Computed axial tomography of the abdomen pelvis was obtained without oral or IV contrast. Lack of IV and oral contrast limits evaluation of solid organs, bowel, and vessels. Coronal reformat amina images were obtained and reviewed. All CT scans are performed using dose optimization technique as appropriate and may include automated exposure control or mA/KV adjustment according to patient size. FINDINGS: A renal calculus is not seen. An ureteral calculus is not noted. A bladder calculus is not present. Air is present within the lumen and wall of the bladder The liver, spleen, pancreas and adrenals appear grossly normal. Cholecystectomy There is no evidence of diverticulitis. The appendix appears normal. Moderate amount of stool within the colon. IMPRESSION: Negative for a genitourinary calculus Air within the wall and lumen of the bladder compatible with emphysematous cystitis
--- NOTE | 2020-05-28 13:52 | RAD REPORT ---
EXAM DESCRIPTION: [place] Single View05/28/2020 1:12 pm CLINICAL HISTORY: cough COMPARISON: 2018 FINDINGS: The lungs appear clear of acute infiltrate. The heart is normal size IMPRESSION: No acute abnormalities displayed
[2020-05-28 14:11] LABS: Protime INR 0.92
[2020-05-28 14:12] LABS: Absolute Lymphocytes (CBC) 1.7 K/uL (0.7-4.9); Basophils % 0.7 % (0-1.3); Hematocrit 40.4 % (36.0-45.0); Lymphocytes % 28.1 % (15.3-44.8); MPV 10.1 fL (7.6-11.3); RBC Red Blood Cell Count 4.64 M/uL (3.86-4.86)
[2020-05-28] MEDS ORDERED: Meropenem 1 GM/100 ML BAG ONE (14:20)
[2020-05-28 14:26] LABS: ALT/SGPT 15 U/L (12-78); AST/SGOT 11 U/L (15-37); Albumin 2.5 g/dL (3.4-5.0); Alkaline Phosphatase 117 U/L (45-117); BUN Blood Urea Nitrogen 12 mg/dL (7-18); Bicarbonate 34 mmol/L (21-32); Bilirubin Direct < 0.1 mg/dL (0-0.2); Bilirubin Total 0.3 mg/dL (0.2-1.0); Glucose Level 321 mg/dL (74-106); Lipase 86 U/L (73-393); Magnesium 2.2 mg/dL (1.8-2.4); NT PRO-BNP 169 pg/mL (<125); Potassium 3.3 mmol/L (3.5-5.1); Protein, Total 7.2 g/dL (6.4-8.2); Sodium Level 141 mmol/L (136-145); Troponin (Emerg Dept Use Only) < 0.02 ng/mL (0.0-0.045)
--- NOTE | 2020-05-28 14:38 | EDPHYS ---
Physician Documentation [facility] Name: Bisi Santo Age: 50 yrs Sex: Female : 1970 Arrival Date: 05/28/2020 Time: 10:59 Bed 13 Private MD: ED Physician Hari De La Garza HPI: 05/28 14:26 This 50 yrs old Black Female presents to ER via Ambulatory with complaints of Pain With charlene Urination. 14:26 The patient presents with abdominal pain in the lower abdomen. Onset: The charlene symptoms/episode began/occurred 30 day(s) ago. The symptoms do not radiate. Associated signs and symptoms: none. The symptoms are described as constant, crampy. Modifying factors: The symptoms are alleviated by nothing, the symptoms are aggravated by movement, pressure, walking. Severity of pain: At its worst the pain was moderate in the emergency department the pain is unchanged. The patient has experienced similar episodes in the past, a few times. Historical: - Allergies: 11:06 Codeine; ss 11:06 Demerol; ss 11:06 Morphine; ss 11:06 Sulfa (Sulfonamide Antibiotics); ss - PMHx: 11:06 ADD/ADHD; Diabetes - IDDM; Hypertension; neuropathy divya lower legs; ss - PSHx: 11:06 Hysterectomy; Cholecystectomy; cyst removed from groin; Carpal Tunnel Repair; ss - Immunization history:: Adult Immunizations up to date. - Social history:: Smoking status: Patient denies any tobacco usage or history of. - Family history:: not pertinent. ROS: 14:26 Constitutional: Negative for fever, chills, and weight loss, Eyes: Negative for injury, charlene pain, redness, and discharge, ENT: Negative for injury, pain, and discharge, Neck: Negative for injury, pain, and swelling, Cardiovascular: Negative for chest pain, palpitations, and edema, Respiratory: Negative for shortness of breath, cough, wheezing, and pleuritic chest pain, Back: Negative for injury and pain, MS/Extremity: Negative for injury and deformity, Skin: Negative for injury, rash, and discoloration, Neuro: Negative for headache, weakness, numbness, tingling, and seizure, Psych: Negative for depression, anxiety, suicide ideation, homicidal ideation, and hallucinations, Allergy/Immunology: Negative for hives, rash, and allergies, Endocrine: Negative for neck swelling, polydipsia, polyuria, polyphagia, and marked weight changes, Hematologic/Lymphatic: Negative for swollen nodes, abnormal bleeding, and unusual bruising. 14:26 Abdomen/GI: Positive for abdominal pain, abdominal cramps, of the suprapubic area, right lower quadrant and left lower quadrant. 14:26 Abdomen/GI: Positive for Exam: 14:26 Constitutional: This is a well developed, well nourished patient who is awake, alert, charlene and in no acute distress. Head/Face: Normocephalic, atraumatic. Eyes: Pupils equal round and reactive to light, extra-ocular motions intact. Lids and lashes normal. Conjunctiva and sclera are non-icteric and not injected. Cornea within normal limits. Periorbital areas with no swelling, redness, or edema. ENT: Nares patent. No nasal discharge, no septal abnormalities noted. Tympanic membranes are normal and external auditory canals are clear. Oropharynx with no redness, swelling, or masses, exudates, or evidence of obstruction, uvula midline. Mucous membranes moist. Neck: Trachea midline, no thyromegaly or masses palpated, and no cervical lymphadenopathy. Supple, full range of motion without nuchal rigidity, or vertebral point tenderness. No Meningismus. Chest/axilla: Normal chest wall appearance and motion. Nontender with no deformity. No lesions are appreciated. Cardiovascular: Regular rate and rhythm with a normal S1 and S2. No gallops, murmurs, or rubs. Normal PMI, no JVD. No pulse deficits. Respiratory: Lungs have equal breath sounds bilaterally, clear to auscultation and percussion. No rales, rhonchi or wheezes noted. No increased work of breathing, no retractions or nasal flaring. Back: No spinal tenderness. No costovertebral tenderness. Full range of motion. Pelvic Exam: Normal external genitalia. Speculum exam with closed cervical os, no discharge or bleeding noted. Bimanual exam with normal adnexa, no adnexal or cervical motion tenderness. Normal uterus. Skin: Warm, dry with normal turgor. Normal color with no rashes, no lesions, and no evidence of cellulitis. MS/ Extremity: Pulses equal, no cyanosis. Neurovascular intact. Full, normal range of motion. Neuro: Awake and alert, GCS 15, oriented to person, place, time, and situation. Cranial nerves II-XII grossly intact. Motor strength 5/5 in all extremities. Sensory grossly intact. Cerebellar exam normal. Normal gait. Psych: Awake, alert, with orientation to person, place and time. Behavior, mood, and affect are within normal limits. 14:26 Abdomen/GI: Inspection: abdomen appears normal, Bowel sounds: normal, Palpation: moderate abdominal tenderness, in the suprapubic area and right lower quadrant, Liver: no appreciated palpable abnormalities, Hernia: not appreciated. Vital Signs: 11:04 BP 177 / 111; Pulse 89; Resp 15; Temp 97.5(TE); Pulse Ox 100% on R/A; Weight 58.97 kg; ss Height 5 ft. 2 in. (157.48 cm); Pain 9/10; 13:20 BP 195 / 100; Pulse 82; Resp 16; Pulse Ox 98% on R/A; vg1 15:00 BP 185 / 103; Pulse 83; Resp 18; Pulse Ox 100% on R/A; vg1 15:30 BP 190 / 103; Pulse 93; Resp 16; Pulse Ox 100% on R/A; vg1 16:00 BP 171 / 107; Pulse 91; Resp 16; Pulse Ox 100% on R/A; vg1 16:30 BP 183 / 105; Pulse 88; Resp 18; Pulse Ox 100% on R/A; vg1 17:00 BP 170 / 97; Pulse 91; Resp 16; Pulse Ox 100% on R/A; vg1 17:30 BP 177 / 103; Pulse 90; Resp 16; Pulse Ox 100% on R/A; vg1 17:55 BP 172 / 104; Pulse 92; Resp 16; Pulse Ox 100% on R/A; vg1 18:00 BP 178 / 98; Pulse 87; Resp 16; Pulse Ox 100% on R/A; vg1 11:04 Body Mass Index 23.78 (58.97 kg, 157.48 cm) ss MDM: 12:44 Patient medically screened. charlene 14:29 Differential diagnosis: appendicitis, bowel obstruction, diverticulitis, non-specific charlene abd pain, pancreatitis, Peritonitis, Ureterolithiasis, urinary tract infection. Data reviewed: vital signs, nurses notes, lab test result(s), EKG, radiologic studies, plain films. Data interpreted: phototypesetting equipment monitor: rate is 82 beats/min, rhythm is normal sinus rhythm, Pulse oximetry: on room air is 98 %. Test interpretation: by ED physician or midlevel provider: ECG, plain radiologic studies. Counseling: I had a detailed discussion with the patient and/or guardian regarding: the historical points, exam findings, and any diagnostic results supporting the discharge/admit diagnosis, the presence of at least one elevated blood pressure reading (>120/80) during this emergency department visit, lab results, the need for further work-up and treatment in the hospital. 05/28 11:34 Order name: Urine Microscopic Only; Complete Time: 12:45 ss 05/28 11:40 Order name: Urine Dipstick--Ancillary (enter results); Complete Time: 12:45 eb 05/28 12:47 Order name: Basic Metabolic Panel; Complete Time: 14:37 charlene 05/28 12:47 Order name: CBC with Diff; Complete Time: 14:37 charlene 05/28 12:47 Order name: LFT's; Complete Time: 14:37 [facility] 05/28 12:47 Order name: Magnesium; Complete Time: 14:37 [facility] 05/28 12:47 Order name: NT PRO-BNP; Complete Time: 14:37 [facility] 05/28 12:47 Order name: PT-INR; Complete Time: 14:37 charlene 05/28 12:47 Order name: Troponin (emerg Dept Use Only); Complete Time: 14:37 [facility] 05/28 12:47 Order name: XRAY Chest (1 view); Complete Time: 14:37 [facility] 05/28 12:47 Order name: CT Stone Protocol; Complete Time: 13:52 charlene 05/28 12:47 Order name: Lipase; Complete Time: 14:37 [facility] 05/28 12:47 Order name: Urine Culture [facility] 05/28 17:31 Order name: Glucose, Ancillary Testing EDKS 05/28 12:47 Order name: EKG; Complete Time: 12:48 charlene 05/28 12:47 Order name: Cardiac monitoring; Complete Time: 14:34 charlene 05/28 12:47 Order name: EKG - Nurse/Tech; Complete Time: 14:34 charlene 05/28 12:47 Order name: IV Saline Lock; Complete Time: 14:34 charlene 05/28 12:47 Order name: Labs collected and sent; Complete Time: 14:34 [facility] 05/28 17:22 Order name: Diet Regular; Complete Time: 17:23 [facility] 05/28 12:47 Order name: O2 Per Protocol; Complete Time: 12:51 [facility] 05/28 12:47 Order name: O2 Sat Monitoring; Complete Time: 12:51 [facility] Administered Medications: 13:56 Drug: NS 0.9% 1000 ml Route: IV; Rate: 125 ml/hr; Site: right antecubital; vg1 14:19 Drug: Meropenem 1 grams Route: IV; Rate: per protocol; Site: right antecubital; vg1 15:00 Follow up: IV Status: Completed infusion vg1 17:15 Follow up: Response: No adverse reaction vg1 15:20 Drug: levofloxacin 750 mg Volume: 150 ml; Route: IVPB; Infused Over: 90 mins; Site: vg1 right antecubital; 17:14 Follow up: IV Status: Completed infusion; IV Intake: 150ml vg1 15:20 Drug: Potassium Effervescent Tablet 50 mEq Route: PO; vg1 17:15 Follow up: Response: No adverse reaction vg1 15:20 Drug: Insulin Regular Human 8 units {Co-Signature: ll1 (Adenike Willett RN).} Route: IVP; vg1 Site: right antecubital; 17:15 Follow up: Response: No adverse reaction vg1 15:20 Drug: LanTUS 25 units Route: Sub-Q; Site: right upper abdomen; vg1 17:15 Follow up: Response: No adverse reaction vg1 15:20 Drug: NS 0.9% 500 ml Route: IV; Rate: bolus; Site: right antecubital; vg1 17:15 Follow up: IV Status: Completed infusion; IV Intake: 500ml vg1 15:20 Drug: Pepcid 20 mg Route: IVP; Site: right antecubital; vg1 17:15 Follow up: Response: No adverse reaction vg1 18:00 Drug: Lisinopril 5 mg Route: PO; vg1 18:40 Follow up: Response: No adverse reaction vg1 18:00 Drug: Norvasc 5 mg Route: PO; vg1 18:40 Follow up: Response: No adverse reaction vg1 Disposition: 05/28/20 14:37 Hospitalization ordered by Anthony Becerra for Inpatient Admission. Preliminary diagnosis are Urinary tract infection, site not specified - emphysematous cystitis, Hematuria, Abdominal tenderness, Type 1 diabetes mellitus, Hypokalemia. - Bed requested for Telemetry/MedSurg (Inpatient). - Status is Inpatient Admission. vg1 - Condition is Fair. - Problem is new. - Symptoms have worsened. Signatures: Dispatcher [employer] EDMS Hari eD La Garza MD MD cha Smirch, Shelby, RN RN Brittney Barros Victoria, RN RN 1 Adenike Willett RN 1 Corrections: (The following items were deleted from the chart) 14:42 14:37 Hospitalization Ordered by Anthony Becerra for Inpatient Admission. Preliminary charlene diagnosis is Urinary tract infection, site not specified - emphysematous cystitis; Hematuria; Abdominal tenderness; Type 1 diabetes mellitus. Bed requested for Telemetry/MedSurg (Inpatient). Status is Inpatient Admission. Condition is Fair. Problem is new. Symptoms have worsened. [facility] 17:58 14:42 05/28/2020 14:37 Hospitalization Ordered by Anthony Becerra for Inpatient eb Admission. Preliminary diagnosis is Urinary tract infection, site not specified - emphysematous cystitis; Hematuria; Abdominal tenderness; Type 1 diabetes mellitus; Hypokalemia. Bed requested for Telemetry/MedSurg (Inpatient). Status is Inpatient Admission. Condition is Fair. Problem is new. Symptoms have worsened. [facility] 18:42 17:58 05/28/2020 14:37 Hospitalization Ordered by Anthony Becerra for Inpatient vg1 Admission. Preliminary diagnosis is Urinary tract infection, site not specified - emphysematous cystitis; Hematuria; Abdominal tenderness; Type 1 diabetes mellitus; Hypokalemia. Bed requested for Telemetry/MedSurg (Inpatient). Status is Inpatient Admission. Condition is Fair. Problem is new. Symptoms have worsened. eb
--- NOTE | 2020-05-28 14:38 | ER ---
Nurse's Notes [facility] Name: Bisi Santo Age: 50 yrs Sex: Female : 1970 Arrival Date: 05/28/2020 Time: 10:59 Bed 13 Private MD: Diagnosis: Urinary tract infection, site not specified-emphysematous cystitis;Hematuria;Abdominal tenderness;Type 1 diabetes mellitus;Hypokalemia Presentation: 05/28 11:04 Chief complaint: Patient states: Pain with urination and blood in urine that began 1 ss month ago. Coronavirus screen: Client denies travel out of the [place] in the last 14 days. Ebola Screen: Patient denies exposure to infectious person. Patient denies travel to an Ebola-affected area in the 21 days before illness onset. Initial Sepsis Screen: Does the patient meet any 2 criteria? No. Patient's initial sepsis screen is negative. Does the patient have a suspected source of infection? Yes: Dysuria/Frequency/Urgency/UTI. Risk Assessment: Do you want to hurt yourself or someone else? Patient reports no desire to harm self or others. Onset of symptoms was April 2020. 11:04 Method Of Arrival: Ambulatory ss 11:04 Acuity: SONIA 3 ss Historical: - Allergies: 11:06 Codeine; ss 11:06 Demerol; ss 11:06 Morphine; ss 11:06 Sulfa (Sulfonamide Antibiotics); ss - PMHx: 11:06 ADD/ADHD; Diabetes - IDDM; Hypertension; neuropathy divya lower legs; ss - PSHx: 11:06 Hysterectomy; Cholecystectomy; cyst removed from groin; Carpal Tunnel Repair; ss - Immunization history:: Adult Immunizations up to date. - Social history:: Smoking status: Patient denies any tobacco usage or history of. - Family history:: not pertinent. Screenin:30 Abuse screen: Denies threats or abuse. Nutritional screening: No deficits noted. vg1 Tuberculosis screening: No symptoms or risk factors identified. Fall Risk No fall in past 12 months (0 pts). No secondary diagnosis (0 pts). IV access (20 points). Ambulatory Aid- None/Bed Rest/Nurse Assist (0 pts). Gait- Normal/Bed Rest/Wheelchair (0 pts) Mental Status- Oriented to own ability (0 pts). Total Reon Fall Scale indicates No Risk (0-24 pts). Assessment: 13:30 General: Appears in no apparent distress. Behavior is calm, cooperative. Pain: vg1 Complains of pain in right flank Pain currently is 9 out of 10 on a pain scale. Quality of pain is described as sharp, Pain began about a week. Neuro: Level of Consciousness is awake, alert, obeys commands, Oriented to person, place, time, situation. Cardiovascular: Patient's skin is warm and dry. Respiratory: Airway is patent Respiratory effort is even, unlabored, Respiratory pattern is regular, symmetrical. GI: No signs and/or symptoms were reported involving the gastrointestinal system. : Reports burning with urination, since about a week. States after urinating notices pink tingle to toilet paper. Also states foul smell during urination since January. EENT: No signs and/or symptoms were reported regarding the EENT system. Derm: No signs and/or symptoms reported regarding the dermatologic system. Musculoskeletal: Range of motion: intact in all extremities. 15:00 Reassessment: Patient appears in no apparent distress at this time. No changes from vg1 previously documented assessment. Patient is alert, oriented x 3, equal unlabored respirations, skin warm/dry/pink. 16:00 Reassessment: No changes from previously documented assessment. vg1 18:10 Reassessment: Attempted to call report. Spoke to Andrea and stated receiving nurse will vg call back. 18:22 Reassessment: Gave report to Melony COLON. vg1 Vital Signs: 11:04 BP 177 / 111; Pulse 89; Resp 15; Temp 97.5(TE); Pulse Ox 100% on R/A; Weight 58.97 kg; ss Height 5 ft. 2 in. (157.48 cm); Pain 9/10; 13:20 BP 195 / 100; Pulse 82; Resp 16; Pulse Ox 98% on R/A; vg1 15:00 BP 185 / 103; Pulse 83; Resp 18; Pulse Ox 100% on R/A; vg1 15:30 BP 190 / 103; Pulse 93; Resp 16; Pulse Ox 100% on R/A; vg1 16:00 BP 171 / 107; Pulse 91; Resp 16; Pulse Ox 100% on R/A; vg1 16:30 BP 183 / 105; Pulse 88; Resp 18; Pulse Ox 100% on R/A; vg1 17:00 BP 170 / 97; Pulse 91; Resp 16; Pulse Ox 100% on R/A; vg1 17:30 BP 177 / 103; Pulse 90; Resp 16; Pulse Ox 100% on R/A; vg1 17:55 BP 172 / 104; Pulse 92; Resp 16; Pulse Ox 100% on R/A; vg1 18:00 BP 178 / 98; Pulse 87; Resp 16; Pulse Ox 100% on R/A; vg1 11:04 Body Mass Index 23.78 (58.97 kg, 157.48 cm) ED Course: 10:59 Patient arrived in ED. rg4 11:05 Triage completed. ss 11:06 Arm band placed on right wrist. ss 12:44 Hari De La Garza MD is Attending Physician. charlene 12:50 Linnea Marroquin RN is Primary Nurse. vg1 13:12 XRAY Chest (1 view) In Process Unspecified. EDMS 13:30 Patient has correct armband on for positive identification. Placed in gown. Bed in low vg1 position. Call light in reach. Side rails up X 1. 13:[address] via stretcher. ph 13:38 CT Stone Protocol In Process Unspecified. EDMS 13:50 Inserted saline lock: 20 gauge in right antecubital area, using aseptic technique. vg1 Blood collected. 13:50 Initial lab(s) drawn, by ar, sent to lab. vg1 14:34 Anthony Becerra is Hospitalizing Provider. charlene 18:23 No provider procedures requiring assistance completed. Patient admitted, IV remains in vg1 place. Administered Medications: 13:56 Drug: NS 0.9% 1000 ml Route: IV; Rate: 125 ml/hr; Site: right antecubital; vg1 14:19 Drug: Meropenem 1 grams Route: IV; Rate: per protocol; Site: right antecubital; vg1 15:00 Follow up: IV Status: Completed infusion vg1 17:15 Follow up: Response: No adverse reaction vg1 15:20 Drug: levofloxacin 750 mg Volume: 150 ml; Route: IVPB; Infused Over: 90 mins; Site: vg1 right antecubital; 17:14 Follow up: IV Status: Completed infusion; IV Intake: 150ml vg1 15:20 Drug: Potassium Effervescent Tablet 50 mEq Route: PO; vg1 17:15 Follow up: Response: No adverse reaction vg1 15:20 Drug: Insulin Regular Human 8 units {Co-Signature: ll1 (Adenike Willett RN).} Route: IVP; vg1 Site: right antecubital; 17:15 Follow up: Response: No adverse reaction vg1 15:20 Drug: LanTUS 25 units Route: Sub-Q; Site: right upper abdomen; vg1 17:15 Follow up: Response: No adverse reaction vg1 15:20 Drug: NS 0.9% 500 ml Route: IV; Rate: bolus; Site: right antecubital; vg1 17:15 Follow up: IV Status: Completed infusion; IV Intake: 500ml vg1 15:20 Drug: Pepcid 20 mg Route: IVP; Site: right antecubital; vg1 17:15 Follow up: Response: No adverse reaction vg1 18:00 Drug: Lisinopril 5 mg Route: PO; vg1 18:40 Follow up: Response: No adverse reaction vg1 18:00 Drug: Norvasc 5 mg Route: PO; vg1 18:40 Follow up: Response: No adverse reaction vg1 Intake: 17:14 IV: 150ml; Total: 150ml. vg1 17:15 IV: 500ml; Total: 650ml. vg1 Outcome: 14:37 Decision to Hospitalize by Provider. charlene 18:23 Admitted to Tele accompanied by tech, via wheelchair, room 229, with chart, Report vg1 called to Melony COLON 18:23 Condition: good 18:23 Instructed on the need for admit. 18:42 Patient left the ED. vg1 Signatures: Dispatcher [employer] Hari Diaz MD MD cha Smirch, Shelby RN Nieves Mosley RN Sosa nAn ph, Victoria, RN RN vg1 Adenike Willett RN ll1
[2020-05-28] MEDS ORDERED: Levofloxacin 750mg IV 750 MG/150 ML BAG IV ONE (14:52)
[2020-05-28] MEDS ORDERED: INSULIN GLARGINE 100 UNITS/ML SQ ONE (15:19)
[2020-05-28] MEDS ORDERED: POTASSIUM 25 MEQ EFFERV TAB ONE (15:20)
[2020-05-28] MEDS ORDERED: INSULIN -REGULAR HUMAN 50 UNIT/0.5 ML ML ONE (15:21)
[2020-05-28] MEDS ORDERED: FAMOTIDINE 20 MG/2 ML VIAL IV ONE (15:22)
--- NOTE | 2020-05-28 15:48 | P.HP ---
Certification for Inpatient Patient admitted to: Inpatient With expected LOS: >2 Midnights Practitioner: I am a practitioner with admitting privileges, knowledge of patient current condition, hospital course, and medical plan of care. Services: Services provided to patient in accordance with Admission requirements found in Title 42 Section 412.3 of the Code of Federal Regulations Patient History Date of Service: 05/28/20 Reason for admission: Suprapubic pain and hematuria History of Present Illness: 50-year-old woman with a history of insulin-dependent diabetes mellitus and hypertension presented to the emergency department with a complaint of 1 month history of hematuria, dysuria and suprapubic pain. She stated she has not followed with any physician or taken any antibiotics for her symptoms. She rated her suprapubic pain as 9/10. CT abdomen and pelvis done in the emergency department demonstrated air in the lumen and wall of the bladder suggestive of emphysematous cystitis. She has no leukocytosis. She is afebrile and does not meet criteria for sepsis. Patient given a shot of IV meropenem, and Levaquin in the ED. Blood sugar noted to be elevated for which she was a dose of Lantus insulin 25 units and regular insulin. Patient is admitted for further management. Allergies codeine Allergy (Unknown, Verified 06/28/15 16:01) Unknown meperidine [From Demerol] Allergy (Unverified 01/10/18 12:25) Unknown Sulfa (Sulfonamide Antibiotics) Allergy (Verified 12/12/16 10:29) Unknown morphine Allergy (Uncoded 12/11/16 01:36) Unknown Sulfa (Sulfonamid Allergy (Uncoded 09/08/15 00:20) Unknown Sulfa (Sulfonamide Antibiot Allergy (Uncoded 09/02/15 03:19) Unknown Sulfa (Sulfonamide Antibiotic Allergy (Uncoded 08/19/15 00:19) Unknown Home Medications: Estradiol [Estrace] 1.5 mg PO DAILY 08/19/15 Amlodipine [Norvasc*] 5 mg PO DAILY 12/11/16 Gabapentin [Gralise] 300 mg PO DAILY 12/11/16 Insulin Degludec [Tresiba Flextouch U-100] 10 unit SQ DAILY 12/11/16 Metformin HCl [Glucophage XR OR ER] 750 mg PO DAILY 12/11/16 Topiramate [Topamax] 25 mg PO BID #60 tablet 12/14/16 - Past Medical/Surgical History Diabetic: Yes -: hyperlipidemia -: Hypertension -: Type 1 diabetes -: hysterectomy -: cyst removed from groin -: carpal tunnel repair - Family History Mother -: Diabetes Brother -: Diabetes - Social History Smoking Status: Never smoker Alcohol use: No CD- Drugs: No Caffeine use: No Review of Systems Other: Except as documented, all other systems reviewed and negative. Physical Examination - Physical Exam General: Alert, In no apparent distress, Oriented x3 HEENT: Normocephalic, PERRLA, Mucous membr. moist/pink, EOMI, Sclerae nonicteric Neck: Supple, JVD not distended Respiratory: Clear to auscultation bilaterally, Normal air movement Cardiovascular: No edema, Regular rate/rhythm, Normal S1 S2 Capillary refill: <2 Seconds Gastrointestinal: Normal bowel sounds, Soft and benign, Non-distended, Tenderness (Suprapubic) Musculoskeletal: No swelling, No tenderness Integumentary: No rashes, No erythema Neurological: Normal speech, Normal strength at 5/5 x4 extr - Studies Laboratory Data (last 24 hrs) 05/28/20 13:51: PT 10.9, INR 0.92 05/28/20 13:51: WBC 5.9, Hgb 13.5, Hct 40.4, Plt Count 179 05/28/20 13:51: Sodium 141, Potassium 3.3 L, BUN 12, Creatinine 1.04, Glucose 321 H, Magnesium 2.2, Total Bilirubin 0.3, AST 11 L, ALT 15, Alkaline Phosphatase 117, Lipase 86 Assessment and Plan - Problems (Diagnosis) (1) Emphysematous cystitis Current Visit: Yes Status: Acute (2) Insulin dependent diabetes mellitus Current Visit: Yes Status: Acute (3) Hyperglycemia Onset Date: 06/28/15 Current Visit: No Status: Acute (4) Uncontrolled hypertension Current Visit: Yes Status: Acute - Plan Admit patient to the medical floor. Start IV cefepime and vancomycin for broad-spectrum coverage Obtain blood culture. Follow urine culture. Aggressive blood sugar control with Lantus insulin and insulin sliding scale. Pain management with IV fentanyl and [place]. Hydralazine p.r.n. for BP spikes. Continue home antihypertensives. - Advance Directives Does patient have a Living Will: No Does patient have a Durable POA for Healthcare: No
[2020-05-28] MEDS ORDERED: ACETAMINOPHEN 500 MG TAB PO PRN (17:31)
[2020-05-28] MEDS: INSULIN -REGULAR HUMAN 50 UNIT/0.5 ML ML SQ SCH ×2 (17:31→21:00)
[2020-05-28] MEDS ORDERED: lisinopriL 5 MG TAB ONE (17:55)
[2020-05-28] MEDS ORDERED: AMLODIPINE 5 MG TAB ONE (17:56)
[2020-05-28] MEDS: HYDRALAZINE HCL 20 MG/ML VIAL IV PRN (19:18)
[2020-05-28] MEDS: NA CHLORIDE 0.9% 1,000 ML IV SCH (19:18)
[2020-05-28] MEDS ORDERED: VANCOMYCIN 1 GM/VIAL ONE (19:58)
[2020-05-28] MEDS ORDERED: CEFEPIME 2 GM VIAL ONE (20:00)
[2020-05-28] MEDS: CEFEPIME/SWI 1gm 10 ML IV SCH ×2 (20:08→21:02)
[2020-05-28] MEDS ORDERED: NA CHLORIDE 0.9% 250 ML ONE (20:11)
[2020-05-28] MEDS ORDERED: CEFEPIME 1 GM/VIAL IV SCH (21:00)
[2020-05-28] MEDS: VANCOMYCIN/NS 1 gm 1 GM/250 ML BAG IVPB SCH (21:02)
[2020-05-28] MEDS: FENTANYL CITR 100 MCG/2 ML IV PRN (21:12)
[2020-05-28] MEDS ORDERED: DIPHENHYDRAMINE 50 MG/ML VIAL IV ONE (21:26)
[2020-05-28] MEDS: ONDANSETRON 4 MG/2 ML VIAL IV PRN (21:26)
[2020-05-28] MEDS ORDERED: DIPHENHYDRAMINE 50 MG/ML VIAL ONE (21:40)
[2020-05-29 01:33] VITALS: BMI 23.8
[2020-05-29] MEDS: NA CHLORIDE 0.9% 1,000 ML IV SCH ×2 (05:06→15:00)
[2020-05-29 05:50] LABS: Absolute Lymphocytes (CBC) 2.5 K/uL (0.7-4.9); Basophils % 0.3 % (0-1.3); Hematocrit 36.1 % (36.0-45.0); Lymphocytes % 33.2 % (15.3-44.8); MPV 10.2 fL (7.6-11.3); RBC Red Blood Cell Count 4.14 M/uL (3.86-4.86)
[2020-05-29] MEDS: ONDANSETRON 4 MG/2 ML VIAL IV PRN (05:57)
[2020-05-29] MEDS: FENTANYL CITR 100 MCG/2 ML IV PRN (05:57)
[2020-05-29 06:00] LABS: Phosphorus 2.7 mg/dL (2.5-4.9); Potassium 3.4 mmol/L (3.5-5.1)
[2020-05-29 06:09] LABS: Urine Appearance CLOUDY; Urine Bilirubin NEGATIVE (NEG); Urine Blood 3+ (NEG); Urine Color YELLOW; Urine Glucose TRACE (NEG); Urine Protein 3+ (NEG); Urine Specific Gravity >=1.030 (1.005-1.030); Urine Urobilinogen 0.2 mg/dL (0.2-1.0); Urine pH 6.5 (5.0-7.0)
[2020-05-29 06:23] LABS: Urine Microscopic Reflex ORDER UMIC
[2020-05-29 06:29] LABS: Urine Bacteria >50 /HPF (<20); Urine Coarse Granular Casts FEW /LPF (NONE SEEN); Urine Mucus 2+ /HPF (NONE SEEN); Urine RBC >50 /HPF (NONE SEEN); Urine Yeast FEW (NONE SEEN)
[2020-05-29] MEDS: INSULIN -REGULAR HUMAN 50 UNIT/0.5 ML ML SQ SCH ×4 (07:30→21:28)
[2020-05-29] MEDS: AMLODIPINE 5 MG TAB PO SCH (08:21)
[2020-05-29] MEDS: ENOXAPARIN 40 MG/0.4 ML SQ SCH (08:21)
[2020-05-29] MEDS ORDERED: CEFEPIME/SWI 1gm 10 ML IVP SCH (09:00)
[2020-05-29] MEDS ORDERED: POTASSIUM CL SA 10 MEQ TAB PO ONE ×2 (09:00→21:00)
--- NOTE | 2020-05-29 11:47 | P.PN ---
Subjective Date of Service: 05/29/20 Chief Complaint: Suprapubic pain and hematuria Patient states his suprapubic pain is better. She is complaining of itching. Noted her eyelids are swollen. Patient may be experiencing allergic reaction antibiotics. Afebrile since admission. Physical Examination - Vital Signs Temperature: 98.1 F Blood Pressure: 169/85 Pulse: 86 Respirations: 16 Pulse Ox (%): 100 - Physical Exam General: Alert, In no apparent distress HEENT: Mucous membr. moist/pink, Other (Swollen eyelids.) Respiratory: Clear to auscultation bilaterally, Normal air movement Cardiovascular: No edema, Regular rate/rhythm, Normal S1 S2 Gastrointestinal: Normal bowel sounds, Soft and benign, Non-distended, Tenderness (Suprapubic) Musculoskeletal: No swelling, No tenderness Integumentary: No rashes, No erythema Neurological: Normal strength at 5/5 x4 extr, Other (No focal deficit) - Studies Laboratory Data (last 24 hrs) 05/28/20 13:51: PT 10.9, INR 0.92 05/28/20 13:51: WBC 5.9, Hgb 13.5, Hct 40.4, Plt Count 179 05/28/20 13:51: Sodium 141, Potassium 3.3 L, BUN 12, Creatinine 1.04, Glucose 321 H, Magnesium 2.2, Total Bilirubin 0.3, AST 11 L, ALT 15, Alkaline Phosphatase 117, Lipase 86 Assessment And Plan - Current Problems (Diagnosis) (1) Emphysematous cystitis Current Visit: Yes Status: Acute (2) Insulin dependent diabetes mellitus Current Visit: Yes Status: Acute (3) Hyperglycemia Onset Date: 06/28/15 Current Visit: No Status: Acute (4) Uncontrolled hypertension Current Visit: Yes Status: Acute - Plan Change antibiotics to IV Levaquin. Hold cefepime and vancomycin given the possibility of allergy to both antibiotics. Urine culture is growing Gram negative rods. Blood cultures pending Lantus insulin and insulin sliding scale for glucose management. Discontinue IV fentanyl. Tylenol p.r.n. for pain Hydralazine p.r.n. for BP spikes. Continue home antihypertensives.
[2020-05-29] MEDS ORDERED: ACETAMINOPHEN 500 MG TAB PO PRN (11:49)
[2020-05-29] MEDS: Levofloxacin 750mg IV 750 MG/150 ML BAG IV SCH (12:16)
[2020-05-29] MEDS: TRAMADOL HCL 50 MG TAB PO PRN ×2 (14:59→21:28)
--- NOTE | 2020-05-29 15:27 | EKG ---
Test Date: 2020-05-29 Test Time: 05:26:52 Roping Tender: ANDREW MEASUREMENT RESULTS: Intervals: Rate: 86 LA: 136 QRSD: 86 QT: 390 QTc: 466 [place]: P: 61 LA: 136 QRS: -17 T: 33 INTERPRETIVE STATEMENTS: Normal sinus rhythm Normal ECG Compared to ECG 05/28/2020 13:27:04 No significant changes Electronically Signed On 05-29-20 15:26:17 IMPROVEMENT LEAD by Rashid Smith
--- NOTE | 2020-05-29 15:29 | EKG ---
Test Date: 2020-05-28 Test Time: 13:27:04 Bingo Cashier: BERT MEASUREMENT RESULTS: Intervals: Rate: 81 MS: 142 QRSD: 98 QT: 398 QTc: 462 [place]: P: 73 MS: 142 QRS: -10 T: 48 INTERPRETIVE STATEMENTS: Normal sinus rhythm Normal ECG Compared to ECG 03/04/2019 10:22:00 No significant changes Electronically Signed On 05-29-20 15:26:36 SPRAY PILOT by Rashid Smith
[2020-05-29] MEDS ORDERED: INFLUENZA VACCINE (for 3y+) 0.5 ML DOSE IMVAC ONE (16:00)
[2020-05-29] MEDS: HYDRALAZINE HCL 20 MG/ML VIAL IV PRN ×2 (16:25→21:28)
[2020-05-30] MEDS: NA CHLORIDE 0.9% 1,000 ML IV SCH ×3 (01:10→18:23)
[2020-05-30] MEDS: ONDANSETRON 4 MG/2 ML VIAL IV PRN (04:39)
[2020-05-30 06:19] LABS: Potassium 4.2 mmol/L (3.5-5.1)
[2020-05-30] MEDS: ENOXAPARIN 40 MG/0.4 ML SQ SCH (08:46)
[2020-05-30] MEDS: hydroCHLOROthiazide 25 MG TAB PO SCH (08:47)
[2020-05-30] MEDS: ATORVASTATIN 20 MG TAB PO SCH (08:47)
[2020-05-30] MEDS: AMLODIPINE 5 MG TAB PO SCH (08:47)
[2020-05-30] MEDS: INSULIN -REGULAR HUMAN 50 UNIT/0.5 ML ML SQ SCH ×4 (08:48→21:00)
[2020-05-30] MEDS: LOSARTAN POTASSIUM 50 MG TABLET PO SCH (08:48)
[2020-05-30] MEDS ORDERED: HOME MED 1 EA UNK (Losartan Potassium [Losartan Potassium] 100 MG Tablet) PO SCH (09:00)
[2020-05-30] MEDS ORDERED: PROMETHAZINE INJ 25 MG/ML AMP IV PRN (09:11)
[2020-05-30] MEDS: Levofloxacin 750mg IV 750 MG/150 ML BAG IV SCH (11:52)
[2020-05-30] MEDS ORDERED: FENTANYL CITR 100 MCG/2 ML IV PRN (16:09)
--- NOTE | 2020-05-30 16:17 | P.PN ---
Subjective Date of Service: 05/30/20 Chief Complaint: Suprapubic pain and hematuria Patient complaining of persistent suprapubic pain. She is also complaining of nausea. No vomiting Afebrile since admission. Physical Examination - Vital Signs Temperature: 98.8 F Blood Pressure: 181/95 Pulse: 92 Respirations: 20 Pulse Ox (%): 97 - Physical Exam General: Alert, In no apparent distress Neck: Supple Respiratory: Clear to auscultation bilaterally, Normal air movement Cardiovascular: No edema, Regular rate/rhythm, Normal S1 S2 Gastrointestinal: Soft and benign, Non-distended, Tenderness (Suprapubic area) Musculoskeletal: No swelling, No tenderness Integumentary: No rashes Neurological: Normal speech, Normal strength at 5/5 x4 extr - Studies Microbiology Data (last 24 hrs): 05/28/20 11:37 Clean Catch Urine [place] Count - Final >100,000 CFU/ML. 05/28/20 11:37 Clean Catch Urine - Final Escherichia Coli Assessment And Plan - Current Problems (Diagnosis) (1) Emphysematous cystitis Current Visit: Yes Status: Acute (2) Insulin dependent diabetes mellitus Current Visit: Yes Status: Acute (3) Hyperglycemia Onset Date: 06/28/15 Current Visit: No Status: Acute (4) Uncontrolled hypertension Current Visit: Yes Status: Acute - Plan Change antibiotics to IV Levaquin per culture sensitivity Restart IV fentanyl for pain Urine culture is growing E. coli. Blood cultures: No growth to date. Need to treat with IV antibiotics inpatient until her symptoms improve. Infectious disease input appreciated. Lantus insulin and insulin sliding scale for glucose management. Hydralazine p.r.n. for BP spikes. Continue home antihypertensives.
[2020-05-30] MEDS: HYDRALAZINE HCL 20 MG/ML VIAL IV PRN (16:44)
[2020-05-30] MEDS ORDERED: DIPHENHYDRAMINE 50 MG/ML VIAL IV ONE (19:00)
--- NOTE | 2020-05-31 01:17 | CON ---
History Of Present Illness: This is a 50-year-old female. I was consulted for cystitis. Patient in itially came with the complaint of 1 month of hematuria and now burning urination and pain in her abd omen as clinically above the pubic region. Patient has taken antibiotics prior to coming to the hosp [facility]. A CT scan done in the emergency room showed patient has air in the lumen and the jason of the bladder suggestive of emphysematous cystitis. Patient did not have leukocytosis. She was started on meropenem and Levaquin as she has multi-drug allergies involving codeine, meperidine, Toprol, morphi ne. Past Medical History: Also includes hyperlipidemia, hypertension, diabetes mellitus, hysterectomy, c yst removal from groin, carpal tunnel syndrome. Family History: Includes diabetes mellitus. Social History: Nonsmoker. Nondrinker. Medications: See MARS. Review of Systems: A 10-point review was performed. Physical Examination: General: This is a 50-year-old female, lying in bed, not in any acute cardiopulmonary distress. Vital Signs: Temperature 99.6, pulse 100, respirations 20, blood pressure 134/68. HEENT: Unremarkab le. Neck: Supple. Lungs: Basal crackles. Heart: S1, S2. Regular. Abdomen: Bowel sounds present. Right lower quadrant and suprapubic tenderness. Extremities: No conrado ma. Laboratory Data: Labs show WBC 7.6, hemoglobin 12, platelets are 165. Sodium 149, potassium 4.2, ch loride 111, bicarb 31, BUN 14, creatinine 1, glucose 209. Assessment And Plan: Emphysematous cystitis, currently on IV antibiotic. Patient's urine cultures a re growing Escherichia coli, insulin-dependent diabetes mellitus, hypercholesteremia, abdominal pain, and suprapubic discomfort, most likely due to cystitis. Continue antibiotic and supportive care. Thank you Dr. Becerra for consult. NF/MODL Voice ID: [id number] Report ID: [id number]
[2020-05-31] MEDS: NA CHLORIDE 0.9% 1,000 ML IV SCH ×2 (05:22→16:51)
[2020-05-31 05:46] LABS: Absolute Lymphocytes (CBC) 2.3 K/uL (0.7-4.9); Basophils % 0.7 % (0-1.3); Hematocrit 33.2 % (36.0-45.0); Lymphocytes % 42.4 % (15.3-44.8); MPV 9.7 fL (7.6-11.3)
[2020-05-31 05:59] LABS: Magnesium 1.7 mg/dL (1.8-2.4); Potassium 3.8 mmol/L (3.5-5.1)
[2020-05-31] MEDS: INSULIN -REGULAR HUMAN 50 UNIT/0.5 ML ML SQ SCH ×4 (07:30→20:31)
[2020-05-31] MEDS: LOSARTAN POTASSIUM 50 MG TABLET PO SCH (08:21)
[2020-05-31] MEDS: ATORVASTATIN 20 MG TAB PO SCH (08:22)
[2020-05-31] MEDS: AMLODIPINE 5 MG TAB PO SCH (08:22)
[2020-05-31] MEDS: hydroCHLOROthiazide 25 MG TAB PO SCH (08:22)
[2020-05-31] MEDS: ENOXAPARIN 40 MG/0.4 ML SQ SCH (08:23)
[2020-05-31] MEDS ORDERED: DOCUSATE NA 100 MG CAP PO PRN (08:27)
[2020-05-31] MEDS ORDERED: POTASSIUM CL SA 10 MEQ TAB PO ONE (09:00)
[2020-05-31] MEDS ORDERED: MAGNESIUM SULFATE 1 gm IVPB 1 GM/100 ML BAG IV ONE (09:00)
[2020-05-31] MEDS: DOCUSATE NA 100 MG CAP PO SCH (09:35)
[2020-05-31] MEDS: TRAMADOL HCL 50 MG TAB PO PRN ×2 (09:35→20:28)
[2020-05-31] MEDS: Levofloxacin 750mg IV 750 MG/150 ML BAG IV SCH (11:05)
--- NOTE | 2020-05-31 18:38 | P.PN ---
Subjective Date of Service: 05/31/20 Chief Complaint: Suprapubic pain and hematuria Subjective: Improving (no change this morning, but slightly improved pain this afternoon. has not eaten/drank anything, no appetite, slight nausea) Review of Systems 10-point ROS is otherwise unremarkable Physical Examination - Vital Signs Temperature: 99.1 F Blood Pressure: 181/93 Pulse: 96 Respirations: 18 Pulse Ox (%): 96 - Physical Exam General: Alert, In no apparent distress, Oriented x3 HEENT: Sclerae nonicteric Respiratory: Clear to auscultation bilaterally Cardiovascular: No edema, Regular rate/rhythm Gastrointestinal: Soft and benign, Tenderness (suprapubic) Musculoskeletal: No tenderness Integumentary: No rashes Neurological: Normal speech, Normal affect Assessment & Plan Physician Review Additional Text: Emphysematous cystitis Insulin dependent diabetes mellitus Uncontrolled hypertension - Plan continue IV levaquin - per culture sensitivity (e.coli). Blood cultures: No growth to date. ID consulted DC IVF pt with possible allergic reaction to fentanyl, will try tramadol Change antibiotics to IV Levaquin per culture sensitivity Need to treat with IV antibiotics inpatient until her symptoms improve. Lantus insulin and insulin sliding scale for glucose management. Hydralazine p.r.n. for BP spikes. Continue home antihypertensives. Dispo: possible dc home tomorrow if continues to improve, still has significant pain/tenderness, hasn't taken PO Time Spent Managing Pts Care (In Minutes): 35
[2020-06-01] MEDS: TRAMADOL HCL 50 MG TAB PO PRN ×3 (04:27→21:57)
[2020-06-01 05:29] LABS: Absolute Lymphocytes (CBC) 2.3 K/uL (0.7-4.9); Basophils % 0.9 % (0-1.3); Hematocrit 32.6 % (36.0-45.0); Lymphocytes % 43.7 % (15.3-44.8); MPV 9.1 fL (7.6-11.3); RBC Red Blood Cell Count 3.71 M/uL (3.86-4.86)
[2020-06-01 05:45] LABS: Potassium 4.3 mmol/L (3.5-5.1)
[2020-06-01] MEDS: ENOXAPARIN 40 MG/0.4 ML SQ SCH (08:58)
[2020-06-01] MEDS: INSULIN -REGULAR HUMAN 50 UNIT/0.5 ML ML SQ SCH ×4 (08:58→21:56)
[2020-06-01] MEDS: hydroCHLOROthiazide 25 MG TAB PO SCH (08:59)
[2020-06-01] MEDS: ATORVASTATIN 20 MG TAB PO SCH (08:59)
[2020-06-01] MEDS: AMLODIPINE 5 MG TAB PO SCH (08:59)
[2020-06-01] MEDS: LOSARTAN POTASSIUM 50 MG TABLET PO SCH (09:00)
[2020-06-01] MEDS: DOCUSATE NA 100 MG CAP PO SCH (09:00)
--- NOTE | 2020-06-01 11:25 | RAD REPORT ---
EXAM DESCRIPTION: CT - Abdomen Pelvis W Contrast - 06/01/2020 10:57 am CLINICAL HISTORY: eval renal/bladder for emphysematous changes COMPARISON: Abdomen Pelvis W Contrast dated 12/10/2016 TECHNIQUE: Biphasic, helical CT imaging of the abdomen and pelvis was performed following 100 ml non -ionic IV contrast. No oral contrast administered. All CT scans are performed using dose optimization technique as appropriate and may include automated exposure control or mA/KV adjustment according to patient size. FINDINGS: No suspicious findings in the lung bases. The liver, spleen, and pancreas show no suspicious findings. Cholecystectomy clips are present. Bilia ry tree within normal limits for a post cholecystectomy patient. Symmetric renal function is seen with no hydronephrosis or suspicious renal mass. No pyelonephritis o r acute parenchymal process. Well filled urinary bladder shows no wall thickening or mass. 2 small ai r collections are present in the nondependent portion of the bladder. These are within the lumen of t he bladder a presumed to be related to a catheterization procedure. No bladder wall pneumatosis. Infe ction source for the air is possible but lesser in likelihood. No adrenal abnormalities. Food is present filling but not dilating the stomach. No gastric wall thickening or mass. No acute sm all bowel findings. Patient has a large amount of stool filling but not dilating the colon. Sigmoid c olon is tortuous. Appendix is difficult to uniquely identified. Appendicitis is not suspected. Small mesenteric lymph nodes are present. No bulky lymphadenopathy. No free air, free fluid or inflammator y stranding. No omental thickening. No suspicious bony findings. Bony degenerative changes are present. Small amount of fluid retention in the subcutaneous fatty tissues. A few punctate air densities in th e lower abdominal subcutaneous fat are presumed to be from medication injection. IMPRESSION: No urinary bladder wall thickening or bladder emphysema changes. Small amount of air wit hin the lumen of the urinary bladder is most likely from a catheterization procedure rather than from gas producing infection. Normal, symmetric renal function with no acute kidney Cyndi ureter abnormality. Large amount of stool is present filling but not dilating the entire course of the colon. Multiple small mesenteric lymph nodes are present. Bulky lymphadenopathy is not suspected. The on op acified small bowel loops do make it difficult to accurately assess the lymph nodes. These can be re- evaluated with subsequent study using oral and IV contrast.
[2020-06-01] MEDS: NA CHLORIDE 0.9% 1,000 ML IV SCH (12:27)
[2020-06-01] MEDS: Levofloxacin 750mg IV 750 MG/150 ML BAG IV SCH (12:28)
[2020-06-01] MEDS: POLYETHYL GLY 3350 17 GM/DOSE PO PRN (12:36)
--- NOTE | 2020-06-01 13:06 | PN ---
Subjective: The patient is sitting in bed. Denies any headache, nausea, vomiting. Continues to hav e abdominal discomfort, especially when she uses the restroom. Objective: Vital Signs: Temperature 99.7, pulse 85, respirations 18, blood pressure 170/89. Lungs: Clear to auscultation. Heart: S1, S2. Regular. Abdomen: Right lower and suprapubic discomfort. Extremities: No edema. Diagnostic Studies: WBC 5.2, hemoglobin 10.8, platelets 143. Chemistry shows sodium 140, potassium 4.3, chloride 106, bicarb 32, BUN 12, creatinine 0.5, glucose 261. Microdata, E coli. Assessment And Plan: The patient continued to have abdominal discomfort and low-grade fevers. We wi ll change her antibiotic to meropenem. Continue supportive care. Repeat CT scan and follow the sri ent as needed. NF/MODL Voice ID: [id number] Report ID: [id number]
[2020-06-01] MEDS ORDERED: FLEET ENEMA ADULT PR PRN (13:57)
[2020-06-01] MEDS: ONDANSETRON 4 MG/2 ML VIAL IV PRN ×2 (15:39→22:04)
[2020-06-01] MEDS ORDERED: Meropenem 500 MG VIAL IV SCH (17:00)
[2020-06-01] MEDS: Meropenem 500 MG in NA CHLORIDE 0.9% 100 ML IV SCH (17:08)
[2020-06-01] MEDS ORDERED: FLEET ENEMA ADULT PR ONE (19:03)
--- NOTE | 2020-06-01 19:04 | P.PN ---
Subjective Date of Service: 06/01/20 Chief Complaint: Suprapubic pain and hematuria Subjective: Other (initially felt better yesterday evening. overnight / this morning with worsening abdominal pain again, feels like a balloon is in her bladder) Review of Systems 10-point ROS is otherwise unremarkable Physical Examination - Vital Signs Temperature: 98.3 F Blood Pressure: 161/83 Pulse: 92 Respirations: 18 Pulse Ox (%): 99 - Physical Exam General: Alert, In no apparent distress HEENT: Sclerae nonicteric Neck: Supple Respiratory: Clear to auscultation bilaterally Cardiovascular: No edema, Regular rate/rhythm Gastrointestinal: Soft and benign, Tenderness (moderate TTP in suprapubic area) Musculoskeletal: No tenderness Integumentary: No rashes Assessment & Plan Physician Review Additional Text: Emphysematous cystitis Insulin dependent diabetes mellitus Uncontrolled hypertension Constipation continue IV levaquin - per culture sensitivity (e.coli). Blood cultures: No growth to date. ID consulted and in agreement didn't eat much last night/ this morning, restart IVF tramadol providing relief of pain temporarily Need to treat with IV antibiotics inpatient until her symptoms improve. worsening of pain today, will obtain repeat CT to evaluate, concern for worsening / extension to kidneys Lantus insulin and insulin sliding scale for glucose management. Hydralazine p.r.n. for BP spikes. Continue home antihypertensives. CT with stool burden as well, possibly contributing to abdominal discomfort, continue bowel regimen, enema if no BM today Dispo: possible dc home in 1-2 days, needs improvement of pain and tolerating PO Time Spent Managing Pts Care (In Minutes): 35
[2020-06-02] MEDS: Meropenem 500 MG in NA CHLORIDE 0.9% 100 ML IV SCH ×3 (00:08→16:22)
[2020-06-02] MEDS: NA CHLORIDE 0.9% 1,000 ML IV SCH ×2 (01:20→06:32)
[2020-06-02 02:45] VITALS: O2SAT 97
[2020-06-02 06:30] LABS: Absolute Lymphocytes (CBC) 1.9 K/uL (0.7-4.9); Basophils % 0.5 % (0-1.3); Hematocrit 34.7 % (36.0-45.0); Lymphocytes % 34.1 % (15.3-44.8); MPV 9.6 fL (7.6-11.3); RBC Red Blood Cell Count 3.98 M/uL (3.86-4.86)
[2020-06-02 06:38] LABS: Bilirubin Total 0.4 mg/dL (0.2-1.0); Magnesium 1.9 mg/dL (1.8-2.4); Potassium 3.7 mmol/L (3.5-5.1); Protein, Total 5.4 g/dL (6.4-8.2)
[2020-06-02] MEDS: INSULIN -REGULAR HUMAN 50 UNIT/0.5 ML ML SQ SCH ×3 (07:30→16:30)
[2020-06-02] MEDS: hydroCHLOROthiazide 25 MG TAB PO SCH (08:03)
[2020-06-02] MEDS: ATORVASTATIN 20 MG TAB PO SCH (08:03)
[2020-06-02] MEDS: ENOXAPARIN 40 MG/0.4 ML SQ SCH (08:03)
[2020-06-02] MEDS: DOCUSATE NA 100 MG CAP PO SCH (08:03)
[2020-06-02] MEDS: LOSARTAN POTASSIUM 50 MG TABLET PO SCH (08:04)
[2020-06-02] MEDS: POLYETHYL GLY 3350 17 GM/DOSE PO PRN (08:07)
[2020-06-02] MEDS ORDERED: POTASSIUM CL SA 10 MEQ TAB PO ONE (09:00)
[2020-06-02] MEDS ORDERED: AMLODIPINE 10 MG TAB PO SCH (09:00)
[2020-06-02 17:39] VITALS: BP 157/91; TEMP 98.7
--- NOTE | 2020-06-02 21:52 | P.DS ---
Admission Date: 05/28/20 Discharge Date: 06/02/20 Disposition: ROUTINE DISCHARGE Discharge Condition: GOOD Reason for Admission: Suprapubic pain and hematuria Consultations: MICHAEL - Dr. Mackenzie Procedures: CT stone protocol (05/28): A renal calculus is not seen. An ureteral calculus is not noted. A bladder calculus is not present. Air is present within the lumen and wall of the bladder CXR (05/28): no acute abnormalities displayed CT Abd/pelvis (06/01): No urinary bladder wall thickening or bladder emphysema changes. Small amount of air within the lumen of the urinary bladder is most likely from a catheterization procedure rather than from gas producing infection. Large amount of stool is present filling but not dilating the entire course of the colon. Multiple small mesenteric lymph nodes are present. Problem List Emphysematous cystitis Insulin dependent diabetes mellitus Uncontrolled hypertension Constipation Brief History of Present Illness: 50yo F, PMH: IDDM, HTN presented to ED with 1 month history of hematuria, dysuria, suprapubic pain (02/03). CT Abd/pelvis in ED demonstrated air in the lumen and wall of the bladder suggestive of emphysematous cystitis. She was noted to be afebrile and without a leukocytosis. She was given empiric antibiotics and admitted for further evaluation / management. Hospital Course: Urine culture grew E. coli. She was de-escalated to IV Levaquin. She was slow to improve due to lower abdominal pain and nausea. She had worsening abdominal pain on 06/[address] abd/pelvis was obtained which demonstrated small amount of air in within the lumen of the bladder and large amount of stool. Patient was started on a bowel regimen and given an enema with some relief. On day of discharge she was tolerating PO intake, did not require pain medication, was afebrile, and feeling much better. She was discharged home with 7 more days of levaquin to complete ~12 days of antibiotics. Vital Signs/Physical Exam: Temp Pulse Resp BP Pulse Ox 98.7 F 99 H 18 157/91 H 96 06/02/20 16:00 06/02/20 16:00 06/02/20 16:00 06/02/20 16:00 06/02/20 16:00 General: Alert, In no apparent distress HEENT: Sclerae nonicteric Respiratory: Clear to auscultation bilaterally Cardiovascular: No edema, Regular rate/rhythm Gastrointestinal: Soft and benign, Non-distended, No tenderness Musculoskeletal: No tenderness Integumentary: No rashes, No significant lesion Neurological: Normal speech, Normal affect Laboratory Data at Discharge: WBC 5.6 K/uL (4.3-10.9) 06/02/20 05:37 Hgb 11.5 g/dL (12.0-15.0) L 06/02/20 05:37 Hct 34.7 % (36.0-45.0) L 06/02/20 05:37 Plt Count 166 K/uL (152-406) 06/02/20 05:37 PT 10.9 SECONDS (9.5-12.5) 05/28/20 13:51 INR 0.92 05/28/20 13:51 Sodium 139 mmol/L (136-145) 06/02/20 05:37 Potassium 3.7 mmol/L (3.5-5.1) 06/02/20 05:37 BUN 10 mg/dL (7-18) 06/02/20 05:37 Creatinine 0.94 mg/dL (0.55-1.3) 06/02/20 05:37 Glucose 146 mg/dL (74-106) H 06/02/20 05:37 Phosphorus 2.7 mg/dL (2.5-4.9) 05/29/20 05:12 Magnesium 1.9 mg/dL (1.8-2.4) 06/02/20 05:37 Total Bilirubin 0.4 mg/dL (0.2-1.0) 06/02/20 05:37 AST 17 U/L (15-37) 06/02/20 05:37 ALT 14 U/L (12-78) 06/02/20 05:37 Alkaline Phosphatase 76 U/L (45-117) 06/02/20 05:37 Lipase 86 U/L (73-393) 05/28/20 13:51 Home Medications: Atorvastatin Calcium 20 tab PO DAILY 05/29/20 Insulin NPH Hum/Reg Insulin Hm [Novolin 70-30 100 Unit/ml Vial] 6 units SQ BID 6AM 6PM 05/29/20 Losartan Potassium 100 tab PO DAILY 05/29/20 Metformin HCl 1,000 tab PO DAILY 05/29/20 hydroCHLOROthiazide [Hydrochlorothiazide] 25 tab PO DAILY 05/29/20 Amlodipine [Norvasc*] 10 mg PO DAILY 30 Days #30 tab 06/02/20 Docusate [Colace Cap*] 100 mg PO DAILY 30 Days #30 cap 06/02/20 levoFLOXacin [Levaquin] 750 mg PO DAILY 7 Days #7 tab 06/02/20 New Medications: Docusate [Colace Cap*] 100 mg PO DAILY 30 Days #30 cap levoFLOXacin [Levaquin] 750 mg PO DAILY 7 Days #7 tab Amlodipine [Norvasc*] 10 mg PO DAILY 30 Days #30 tab Patient Discharge Instructions: You were found to have a bladder infection - emp hysematous cystitis. You were treated with antibiotics and will be discharged with 7 more days of levofloxacin (once a day). Follow up with your PCP within 1 week. Recommend daily stool softener (colace), and daily miralax usage for your constipation. You can increase miralax to have 1 soft BM every day. Diet: ADA (bland diet) Activity: Ad osman Followup: ANDREW MORALES [Primary Care Provider] - Time spent managing pt's care (in minutes): 35
== END 2020-06-02 18:44 | disposition home or self-care (01) | DRG 690 ==
LOC: ER 10:56 → ERHOLD 15:38 → 2ND 18:25
PROVIDERS: ADMIT Internal Medicine; ATTEND Hospitalist
DX: N30.81 Other cystitis with hematuria (principal); E11.65 Type 2 diabetes mellitus with hyperglycemia; K59.00 Constipation, unspecified; E78.00 Pure hypercholesterolemia, unspecified; I10 Essential (primary) hypertension; B96.20 Unspecified Escherichia coli [E. coli] as the cause of diseases classified elsewhere; Z88.5 Allergy status to narcotic agent; Z88.1 Allergy status to other antibiotic agents; Z90.710 Acquired absence of both cervix and uterus; Z90.49 Acquired absence of other specified parts of digestive tract; Z79.4 Long term (current) use of insulin; Z79.899 Other long term (current) drug therapy; Z20.822 Contact with and (suspected) exposure to COVID-19
CPT/HCPCS: 36415; 71045; 74176; 74177; 76377; 80048; 80053; 80076; 81003; 81015; 82947; 83690; 83735; 83880; 84100; 84132; 84484; 85025; 85610; 87040; 87077; 87086; 87088; 87186; 93005; 96365; 96366; 96367; 96372; 96375; 99285; J0360; J0692; J1200; J1650; J1815; J2185; J2405; J2550; J3010; J3370; J3475; J7030; J7050; Q9967; U0003

== ENCOUNTER 2020-12-26 16:26 | Emergency (ER) | payer SELFPAY ==
--- NOTE | 2020-12-26 19:56 | RAD REPORT ---
EXAM DESCRIPTION: CT - Head Brain Wo Cont - 12/26/2020 7:51 pm CLINICAL HISTORY: VISUAL DISTURBANCES Headache, drowsiness, visual disturbance. COMPARISON: Head Brain Wo Cont dated 03/04/2019; Head Brain Wo Cont dated 12/11/2016 TECHNIQUE: All CT scans are performed using dose optimization technique as appropriate and may inclu de automated exposure control or mA/KV adjustment according to patient size. FINDINGS: No intracranial hemorrhage, hydrocephalus or extra-axial fluid collection.No areas of brai n edema or evidence of midline shift. The paranasal sinuses and mastoids are clear. The calvarium is intact. IMPRESSION: No acute intracranial abnormality.
[2020-12-26 21:25] LABS: Absolute Lymphocytes (CBC) 2.4 K/uL (0.7-4.9); Basophils % 1.1 % (0-1.3); Hematocrit 40.2 % (36.0-45.0); Lymphocytes % 34.1 % (15.3-44.8); RBC Red Blood Cell Count 4.59 M/uL (3.86-4.86)
--- NOTE | 2020-12-26 21:25 | RAD REPORT ---
EXAM DESCRIPTION: RAD - Chest Single View - 12/26/2020 8:50 pm CLINICAL HISTORY: CHEST PAIN Chest pain. COMPARISON: Chest Single View dated 05/28/2020; Chest Single View dated 03/04/2019; Chest Single View d ated 01/10/2018; Chest Pa And Lat (2 Views) dated 07/11/2017 FINDINGS: Portable technique limits examination quality. The lungs are grossly clear. The heart is normal in size. No displaced fractures. IMPRESSION: No acute intrathoracic process suspected.
[2020-12-26 21:48] LABS: ALT/SGPT 24 U/L (12-78); AST/SGOT 19 U/L (15-37); Albumin 2.4 g/dL (3.4-5.0); Alkaline Phosphatase 106 U/L (45-117); BUN Blood Urea Nitrogen 18 mg/dL (7-18); Bicarbonate 32 mmol/L (21-32); Bilirubin Direct < 0.1 mg/dL (0-0.2); Bilirubin Total 0.1 mg/dL (0.2-1.0); Glucose Level 219 mg/dL (74-106); Magnesium 2.3 mg/dL (1.8-2.4); NT PRO-BNP 165 pg/mL (<125); Potassium 3.8 mmol/L (3.5-5.1); Protein, Total 7.3 g/dL (6.4-8.2); Sodium Level 141 mmol/L (136-145); Troponin (Emerg Dept Use Only) < 0.02 ng/mL (0.0-0.045)
[2020-12-26 22:07] LABS: Protime INR 0.91
--- NOTE | 2020-12-26 23:13 | EDPHYS ---
Physician Documentation [facility] Name: Bisi Santo Age: 50 yrs Sex: Female : 1970 Arrival Date: 12/26/2020 Time: 17:31 Bed 18 Private MD: ED Physician Hari De La Garza HPI: 12/26 23:06 This 50 yrs old Black Female presents to ER via Ambulatory with complaints of High pm1 Blood Pressure, Abnormal Lab Results - EKG. 23:06 The patient has elevated blood pressure and discovered this at a physician's office, pm1 and sent to the emergency department for evaluation. Modifying factors: The symptoms are aggravated by discontinuation of meds, blood pressure medications for at least 1 year. Associated signs and symptoms: Pertinent positives: chest pain, headache. Severity of symptoms: in the emergency department the blood pressure is unchanged. The patient has been recently seen by a physician: the patient's primary care provider, with similar presenting complaints, and was sent to the [facility] Emergency Department for further evaluation. Historical: - Allergies: 19:09 Codeine; iw 19:09 Demerol; iw 19:09 Morphine; iw 19:09 Sulfa (Sulfonamide Antibiotics); iw - PMHx: 19:09 ADD/ADHD; Diabetes - IDDM; Hypertension; neuropathy divya lower legs; iw - PSHx: 19:10 partial hysterectomy; iw - Immunization history:: Client reports receiving the 1st dose of the Covid vaccine. - Social history:: Smoking status: Patient denies any tobacco usage or history of. ROS: 23:06 Constitutional: Negative for fever, chills, and weight loss, Eyes: Negative for injury, pm1 pain, redness, and discharge. 23:06 Respiratory: Negative for shortness of breath, cough, wheezing, and pleuritic chest pain, Abdomen/GI: Negative for abdominal pain, nausea, vomiting, diarrhea, and constipation, Back: Negative for injury and pain, MS/Extremity: Negative for injury and deformity, Skin: Negative for injury, rash, and discoloration, Neuro: Negative for headache, weakness, numbness, tingling, and seizure. 23:06 Cardiovascular: Positive for chest pain, Negative for edema, palpitations. 23:06 All other systems are negative. Exam: 23:06 Constitutional: This is a well developed, well nourished patient who is awake, alert, pm1 and in no acute distress. Head/Face: Normocephalic, atraumatic. Cardiovascular: Regular rate and rhythm with a normal S1 and S2. No gallops, murmurs, or rubs. Normal PMI, no JVD. No pulse deficits. Respiratory: Lungs have equal breath sounds bilaterally, clear to auscultation and percussion. No rales, rhonchi or wheezes noted. No increased work of breathing, no retractions or nasal flaring. Abdomen/GI: Soft, non-tender, with normal bowel sounds. No distension or tympany. No guarding or rebound. No evidence of tenderness throughout. Back: No spinal tenderness. No costovertebral tenderness. Full range of motion. Skin: Warm, dry with normal turgor. Normal color with no rashes, no lesions, and no evidence of cellulitis. MS/ Extremity: Pulses equal, no cyanosis. Neurovascular intact. Full, normal range of motion. 23:06 Eyes: Pupils equal round and reactive to light, extra-ocular motions intact. Lids and lashes normal. Conjunctiva and sclera are non-icteric and not injected. Cornea within normal limits. Periorbital areas with no swelling, redness, or edema. ENT: Nares patent. No nasal discharge, no septal abnormalities noted. Tympanic membranes are normal and external auditory canals are clear. Oropharynx with no redness, swelling, or masses, exudates, or evidence of obstruction, uvula midline. Mucous membranes moist. 23:06 Neuro: Exam negative for acute changes, Orientation: is normal, Mentation: is normal, Motor: is normal, moves all fours. Vital Signs: 19:08 BP 179 / 108; Pulse 74; Resp 16; Temp 98.5; Pulse Ox 100% on R/A; iw 20:24 BP 178 / 101; Pulse 86; Resp 18; Pulse Ox 99% on R/A; em 23:40 BP 176 / 105; Pulse 81; Resp 16; Pulse Ox 99% on R/A; em MDM: 20:26 Patient medically screened. charlene 23:11 Data reviewed: vital signs. Data interpreted: Pulse oximetry: on room air is 99 %. pm1 Interpretation: normal. Counseling: I had a detailed discussion with the patient and/or guardian regarding: the historical points, exam findings, and any diagnostic results supporting the discharge/admit diagnosis, lab results, radiology results, the need for outpatient follow up, a family practitioner, to return to the emergency department if symptoms worsen or persist or if there are any questions or concerns that arise at home. 12/26 20:31 Order name: Basic Metabolic Panel; Complete Time: 22:21 pm1 12/26 20:31 Order name: CBC with Diff; Complete Time: 22:21 pm1 12/26 20:31 Order name: LFT's; Complete Time: 22:21 pm1 12/26 20:31 Order name: Magnesium; Complete Time: 22:21 pm1 12/26 20:31 Order name: NT PRO-BNP; Complete Time: 22:21 pm1 12/26 20:31 Order name: PT-INR; Complete Time: 22:21 pm1 12/26 19:10 Order name: CT Head Brain wo Cont; Complete Time: 20:35 iw 12/26 20:31 Order name: Troponin (emerg Dept Use Only); Complete Time: 22:21 pm1 12/26 20:31 Order name: XRAY Chest (1 view); Complete Time: 21:33 pm1 12/26 20:31 Order name: EKG; Complete Time: 20:32 pm1 12/26 20:31 Order name: Cardiac monitoring; Complete Time: 21:04 pm1 12/26 20:31 Order name: EKG - Nurse/Tech; Complete Time: 21:05 pm1 12/26 20:31 Order name: IV Saline Lock; Complete Time: 21:05 pm1 12/26 20:31 Order name: Labs collected and sent; Complete Time: 21:05 pm1 12/26 20:31 Order name: O2 Per Protocol; Complete Time: 21:05 pm1 12/26 20:31 Order name: O2 Sat Monitoring; Complete Time: 21:05 pm1 Administered Medications: No medications were administered Disposition: 12/27 07:39 Co-signature as Attending Physician, Hari De La Garza MD I agree with the assessment and charlene plan of care. Disposition Summary: 12/26/20 23:12 Discharge Ordered Location: Home pm1 Problem: new pm1 Symptoms: have improved pm1 Condition: Stable pm1 Diagnosis - Essential (primary) hypertension pm1 Followup: pm1 - With: Emergency Department - When: As needed - Reason: Worsening of condition Followup: pm1 - With: Private Physician - When: 2 - 3 days - Reason: Recheck today's complaints, Continuance of care, Re-evaluation by your physician Discharge Instructions: - Discharge Summary Sheet pm1 - Hypertension, Adult pm1 - How to Take Your Blood Pressure, [id number] pm1 - DASH Eating Plan pm1 - Managing Your Hypertension pm1 Forms: - Medication Reconciliation Form pm1 - Thank You Letter pm1 - Antibiotic Education pm1 - Prescription Opioid Use pm1 Prescriptions: - losartan 50 mg Oral tablet - take 1 tablet by ORAL route once daily; 20 tablet; Refills: 0, Product pm1 Selection Permitted Signatures: Dispatcher [employer] EDHari Pemberton MD MD cha Williams, Irene, RN RN Link Hogan NP DRILLING INSPECTOR pm1
--- NOTE | 2020-12-26 23:13 | ER ---
Nurse's Notes [facility] Name: Bisi Santo Age: 50 yrs Sex: Female : 1970 Arrival Date: 12/26/2020 Time: 17:31 Bed 18 Private MD: Diagnosis: Essential (primary) hypertension Presentation: 12/26 19:08 Chief complaint: Patient states: went to a clinic in [place] , was told to come to ER iw bc BP was high, is out of BP meds , normally takes losartan/hctz , also has blurry vision and chest pains for a while. Coronavirus screen: At this time, the client does not indicate any symptoms associated with coronavirus-19. Ebola Screen: Patient negative for fever greater than or equal to 101.5 degrees Fahrenheit, and additional compatible Ebola Virus Disease symptoms Patient denies exposure to infectious person. Patient denies travel to an Ebola-affected area in the 21 days before illness onset. No symptoms or risks identified at this time. Initial Sepsis Screen: Does the patient meet any 2 criteria? No. Patient's initial sepsis screen is negative. Does the patient have a suspected source of infection? No. Patient's initial sepsis screen is negative. Risk Assessment: Do you want to hurt yourself or someone else? Patient reports no desire to harm self or others. Onset of symptoms was December 26, 2020. 19:08 Method Of Arrival: Ambulatory iw 19:08 Acuity: SONIA 3 iw Historical: - Allergies: 19:09 Codeine; iw 19:09 Demerol; iw 19:09 Morphine; iw 19:09 Sulfa (Sulfonamide Antibiotics); iw - PMHx: 19:09 ADD/ADHD; Diabetes - IDDM; Hypertension; neuropathy divya lower legs; iw - PSHx: 19:10 partial hysterectomy; iw - Immunization history:: Client reports receiving the 1st dose of the Covid vaccine. - Social history:: Smoking status: Patient denies any tobacco usage or history of. Screenin:17 Abuse screen: Denies threats or abuse. Nutritional screening: No deficits noted. em Tuberculosis screening: No symptoms or risk factors identified. Fall Risk None identified. Assessment: 21:05 General: Appears in no apparent distress. comfortable, Behavior is calm, cooperative, em appropriate for age. Pain: Complains of pain in face and chest. Neuro: Level of Consciousness is awake, alert, obeys commands, Oriented to person, place, time, situation. Cardiovascular: Capillary refill < 3 seconds Patient's skin is warm and dry. Rhythm is sinus rhythm. Respiratory: Airway is patent Respiratory effort is even, unlabored, Respiratory pattern is regular, symmetrical. Derm: Skin is intact, is healthy with good turgor, Skin is pink, warm \T\ dry. Musculoskeletal: Capillary refill < 3 seconds, Range of motion: intact in all extremities. 22:07 Reassessment: Patient appears in no apparent distress at this time. Patient and/or em family updated on plan of care and expected duration. Pain level reassessed. Patient is alert, oriented x 3, equal unlabored respirations, skin warm/dry/pink. 23:40 Reassessment: Patient appears in no apparent distress at this time. Patient and/or em family updated on plan of care and expected duration. Pain level reassessed. Patient is alert, oriented x 3, equal unlabored respirations, skin warm/dry/pink. Vital Signs: 19:08 BP 179 / 108; Pulse 74; Resp 16; Temp 98.5; Pulse Ox 100% on R/A; iw 20:24 BP 178 / 101; Pulse 86; Resp 18; Pulse Ox 99% on R/A; em 23:40 BP 176 / 105; Pulse 81; Resp 16; Pulse Ox 99% on R/A; em ED Course: 17:31 Patient arrived in ED. am2 19:09 Triage completed. iw 19:10 Arm band placed on. iw 19:51 CT Head Brain wo Cont In Process Unspecified. EDMS 20:16 Ian Beltran, RN is Primary Nurse. em 20:17 Link Gonsalves NP is PHCP. pm1 20:17 Hari De La Garza MD is Attending Physician. pm1 20:17 Patient has correct armband on for positive identification. em 20:50 EKG done, by ED staff, reviewed by Link Gonsalves NP. em 20:51 XRAY Chest (1 view) In Process Unspecified. EDMS 21:04 Initial lab(s) drawn, by nv, sent to lab. Inserted saline lock: 20 gauge in right em antecubital area, using aseptic technique. Blood collected. 23:35 No provider procedures requiring assistance completed. IV discontinued, intact, em bleeding controlled, No redness/swelling at site. Pressure dressing applied. Administered Medications: No medications were administered Outcome: 23:12 Discharge ordered by MD. pm1 23:35 Discharged to home ambulatory. em 23:35 Condition: stable 23:35 Discharge instructions given to patient, Instructed on discharge instructions, follow up and referral plans. medication usage, Demonstrated understanding of instructions, follow-up care, medications, Prescriptions given X 1. 23:40 Patient left the ED. em Signatures: Dispatcher [employer] Ian Rosales RN RN em Williams, Irene, RN RN iw Link Gonsalves NP AIRCRAFT STRUCTURE MECHANIC pm1 Krissy Wooten am2
[2020-12-27 00:27] VITALS: TEMP 98.5
[2020-12-27 00:29] VITALS: O2SAT 99
[2020-12-27 00:30] VITALS: BP 176/105
--- NOTE | 2020-12-27 11:19 | EKG ---
Test Date: 2020-12-26 Test Time: 20:32:56 Didactic Instructor: JARRED MEASUREMENT RESULTS: Intervals: Rate: 86 VA: 144 QRSD: 98 QT: 396 QTc: 473 [place]: P: 63 VA: 144 QRS: -25 T: 45 INTERPRETIVE STATEMENTS: Normal sinus rhythm Incomplete right bundle branch block Borderline ECG Compared to ECG 05/29/2020 05:26:52 Incomplete right bundle-branch block now present Electronically Signed On 12-27-20 11:16:27 CDT by Rashid Smith
== END 2020-12-26 23:40 | disposition home or self-care (01) ==
LOC: ER 16:26
DX: I10 Essential (primary) hypertension (principal); Z88.2 Allergy status to sulfonamides; Z88.5 Allergy status to narcotic agent
CPT/HCPCS: 36415; 70450; 71045; 80048; 80076; 83735; 83880; 84484; 85025; 85610; 93005

== ENCOUNTER 2021-03-27 10:18 | Emergency (ER) | payer SELFPAY ==
--- NOTE | 2021-03-27 11:56 | ER ---
Nurse's Notes [facility] Name: Bisi Santo Age: 51 yrs Sex: Female : 1970 Arrival Date: 03/27/2021 Time: 10:20 Bed 3 Private MD: Diagnosis: Fall (on) (from) other stairs and steps-4 (four);Pain in right wrist Presentation: 03/27 10:44 Chief complaint: Patient states: was up on a ladder , approx 4 foot up, fell on right iw side, caught herself with right arm, has pain to wrist up to elbow. Initial Sepsis Screen: Does the patient meet any 2 criteria? No. Patient's initial sepsis screen is negative. Does the patient have a suspected source of infection? No. Patient's initial sepsis screen is negative. Risk Assessment: Do you want to hurt yourself or someone else? Patient reports no desire to harm self or others. Onset of symptoms was March 27, 2021. 10:44 Method Of Arrival: Ambulatory iw 10:44 Acuity: SONIA 4 iw 10:47 Coronavirus screen: At this time, the client does not indicate any symptoms associated iw with coronavirus-19. Ebola Screen: Patient negative for fever greater than or equal to 101.5 degrees Fahrenheit, and additional compatible Ebola Virus Disease symptoms Patient denies exposure to infectious person. Patient denies travel to an Ebola-affected area in the 21 days before illness onset. No symptoms or risks identified at this time. Historical: - Allergies: 10:46 Codeine; jt3 10:46 Demerol; jt3 10:46 Morphine; jt3 10:46 Sulfa (Sulfonamide Antibiotics); jt3 - PMHx: 10:46 Diabetes - IDDM; Hypertension; jt3 - Immunization history:: Adult Immunizations up to date. - Social history:: Smoking status: unknown. - Family history:: not pertinent. Screenin:46 Abuse screen: Denies threats or abuse. Denies injuries from another. Nutritional jt3 screening: No deficits noted. Tuberculosis screening: No symptoms or risk factors identified. Fall Risk Fall in past 12 months (25 points). Assessment: 10:44 General: Appears in no apparent distress. Behavior is calm, cooperative. Pain: jt3 Complains of pain in right arm From right wrist to right elbow. Pain currently is 7 out of 10 on a pain scale. Quality of pain is described as sharp, Pain began 2 hours ago. Musculoskeletal: Swelling present in right hand and right arm Reports pain in right arm Pt. fell backwards off the second step on a ladder and reports pain in right wrist radiating to elbow. Radial pulse 2+. Edema present in wrist and forearm. No uncontrolled bleeding. ALert and oriented x4. Vital Signs: 10:47 BP 187 / 103; Pulse 100; Resp 18 S; Temp 98.1; Pulse Ox 100% on R/A; Weight 65.77 kg; iw Height 5 ft. 2 in. (157.48 cm); Pain 6/10; 12:35 BP 181 / 105; Pulse 88; Resp 17; Pulse Ox 100% on R/A; jt3 10:47 Body Mass Index 26.52 (65.77 kg, 157.48 cm) ED Course: 10:20 Patient arrived in ED. ds1 10:37 Hari De La Garza MD is Attending Physician. charlene 10:38 Robert Nielsen RN is Primary Nurse. jt3 10:46 Patient has correct armband on for positive identification. Bed in low position. Call jt3 light in reach. Side rails up X2. 10:46 No provider procedures requiring assistance completed. jt3 10:47 Triage completed. 11:54 Cj Dennis MD is Referral Physician. [facility] 11:56 Wrist Right 3 View XRAY In Process Unspecified. EDMS 11:56 Forearm Right XRAY In Process Unspecified. EDMS 12:01 Orthoglass splint: Sugar tong splint applied on right arm. Sling applied to. mh5 Administered Medications: 11:16 Drug: traMADol 100 mg Route: PO; jt3 11:16 Drug: Motrin (ibuprofen) 600 mg Route: PO; jt3 Outcome: 11:56 Discharge ordered by . charlene 12:36 Discharged to home ambulatory. jt3 12:36 Discharged to 12:36 Condition: good 12:36 Discharge instructions given to patient, Instructed on discharge instructions, medication usage, Demonstrated understanding of instructions, medications, Prescriptions given X 2. 12:39 Patient left the ED. jt3 Signatures: Dispatcher [employer] EDMS Hari De La Garza MD MD cha Sanford, Demi ds1 Joan Balbuena RN RN Laura Pettit 5 Robert Nielsen RN RN jt3 Corrections: (The following items were deleted from the chart) 10:46 PMHx: neuropathy divya lower legs; jt3 jt3 10:46 PMHx: ADD/ADHD; jt3 jt3 10:46 PSHx: partial hysterectomy; jt3 jt3
--- NOTE | 2021-03-27 11:56 | EDPHYS ---
Physician Documentation [facility] Name: Bisi Santo Age: 51 yrs Sex: Female : 1970 Arrival Date: 03/27/2021 Time: 10:20 Bed 3 Private MD: ED Physician Hari De La Garza HPI: 03/27 10:54 This 51 yrs old Black Female presents to ER via Ambulatory with complaints of Fall Off charlene Ladder. 10:54 The patient or guardian complains of decreased range of motion, pain, that is acute. charlene The complaints affect the dorsal aspect of right forearm, right wrist and palmar aspect of right forearm. Context: The problem was sustained at home, resulted from a fall. Onset: The symptoms/episode began/occurred just prior to arrival. Treatment prior to arrival includes: no previous treatment. Modifying factors: The symptoms are alleviated by remaining still, the symptoms are aggravated by movement, lifting weight, bending arm. Associated signs and symptoms: The patient has no apparent associated signs or symptoms. The patient or guardian reports decreased range of motion, pain. The complaints affect the right wrist diffusely. Context: The problem was sustained at home. Historical: - Allergies: 10:46 Codeine; jt3 10:46 Demerol; jt3 10:46 Morphine; jt3 10:46 Sulfa (Sulfonamide Antibiotics); jt3 - PMHx: 10:46 Diabetes - IDDM; Hypertension; jt3 - Immunization history:: Adult Immunizations up to date. - Social history:: Smoking status: unknown. - Family history:: not pertinent. ROS: 10:54 Constitutional: Negative for fever, chills, and weight loss, Eyes: Negative for injury, charlene pain, redness, and discharge, ENT: Negative for injury, pain, and discharge, Neck: Negative for injury, pain, and swelling, Cardiovascular: Negative for chest pain, palpitations, and edema, Respiratory: Negative for shortness of breath, cough, wheezing, and pleuritic chest pain, Abdomen/GI: Negative for abdominal pain, nausea, vomiting, diarrhea, and constipation, Back: Negative for injury and pain, : Negative for injury, bleeding, discharge, and swelling, Skin: Negative for injury, rash, and discoloration, Neuro: Negative for headache, weakness, numbness, tingling, and seizure, Psych: Negative for depression, anxiety, suicide ideation, homicidal ideation, and hallucinations, Allergy/Immunology: Negative for hives, rash, and allergies, Endocrine: Negative for neck swelling, polydipsia, polyuria, polyphagia, and marked weight changes, Hematologic/Lymphatic: Negative for swollen nodes, abnormal bleeding, and unusual bruising. 10:54 MS/extremity: Positive for injury or acute deformity, decreased range of motion, pain, swelling, tenderness, of the dorsal aspect of right forearm, right wrist and palmar aspect of right forearm. Exam: 10:54 Constitutional: This is a well developed, well nourished patient who is awake, alert, charlene and in no acute distress. Head/Face: Normocephalic, atraumatic. Eyes: Pupils equal round and reactive to light, extra-ocular motions intact. Lids and lashes normal. Conjunctiva and sclera are non-icteric and not injected. Cornea within normal limits. Periorbital areas with no swelling, redness, or edema. ENT: Nares patent. No nasal discharge, no septal abnormalities noted. Tympanic membranes are normal and external auditory canals are clear. Oropharynx with no redness, swelling, or masses, exudates, or evidence of obstruction, uvula midline. Mucous membranes moist. Neck: Trachea midline, no thyromegaly or masses palpated, and no cervical lymphadenopathy. Supple, full range of motion without nuchal rigidity, or vertebral point tenderness. No Meningismus. Chest/axilla: Normal chest wall appearance and motion. Nontender with no deformity. No lesions are appreciated. Cardiovascular: Regular rate and rhythm with a normal S1 and S2. No gallops, murmurs, or rubs. Normal PMI, no JVD. No pulse deficits. Respiratory: Lungs have equal breath sounds bilaterally, clear to auscultation and percussion. No rales, rhonchi or wheezes noted. No increased work of breathing, no retractions or nasal flaring. Abdomen/GI: Soft, non-tender, with normal bowel sounds. No distension or tympany. No guarding or rebound. No evidence of tenderness throughout. Back: No spinal tenderness. No costovertebral tenderness. Full range of motion. Female : Normal external genitalia. Skin: Warm, dry with normal turgor. Normal color with no rashes, no lesions, and no evidence of cellulitis. Neuro: Awake and alert, GCS 15, oriented to person, place, time, and situation. Cranial nerves II-XII grossly intact. Motor strength 5/5 in all extremities. Sensory grossly intact. Cerebellar exam normal. Normal gait. Psych: Awake, alert, with orientation to person, place and time. Behavior, mood, and affect are within normal limits. 10:54 Musculoskeletal/extremity: Extremities: grossly normal except: decreased ROM, pain, ROM: limited active range of motion, limited passive range of motion, limited active range of motion due to pain, limited passive range of motion due to pain, in the dorsal aspect of right forearm, right wrist and palmar aspect of right forearm, Circulation is intact in all extremities. Sensation intact. Compartment Syndrome exam of affected extremity: is normal. Joints: the right wrist displays limited range of motion, pain at rest, painful range of motion, swelling, DVT Exam: No signs of deep vein thrombosis. no pain, no swelling, no tenderness, negative Homans' sign noted on exam, no appreciated bluish discoloration, no erythema, no increased warmth. Vital Signs: 10:47 BP 187 / 103; Pulse 100; Resp 18 S; Temp 98.1; Pulse Ox 100% on R/A; Weight 65.77 kg; iw Height 5 ft. 2 in. (157.48 cm); Pain 6/10; 12:35 BP 181 / 105; Pulse 88; Resp 17; Pulse Ox 100% on R/A; jt3 10:47 Body Mass Index 26.52 (65.77 kg, 157.48 cm) MDM: 10:[address] [facility] 11: Differential diagnosis: dislocation, closed fracture, contusion, abrasion, tendonitis. [facility] Data reviewed: vital signs, nurses notes, radiologic studies, plain films. 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 Test interpretation: by ED physician or midlevel provider: ECG, plain radiologic studies. Counseling: I had a detailed discussion with the patient and/or guardian regarding: the historical points, exam findings, and any diagnostic results supporting the discharge/admit diagnosis, radiology results. 03/27 10:51 Order name: Wrist Right 3 View XRAY 03/27 10:54 Order name: Forearm Right XRAY [facility] 03/27 10:54 Order name: Ice pack; Complete Time: 12:01 charlene 03/27 11:51 Order name: Sling; Complete Time: 12:01 [facility] 03/27 11:51 Order name: Splint - Sugar Tong - Forearm; Complete Time: 12:01 [facility] Administered Medications: 11:16 Drug: traMADol 100 mg Route: PO; jt3 11:16 Drug: Motrin (ibuprofen) 600 mg Route: PO; jt3 Disposition Summary: 03/27/21 11:56 Discharge Ordered Location: Home [facility] Problem: new charlene Symptoms: have improved charlene Condition: Stable charlene Diagnosis - Fall (on) (from) other stairs and steps - 4 (four) charlene - Pain in right wrist charlene Followup: charlene - With: Private Physician - When: 2 - 3 days - Reason: Recheck today's complaints, Continuance of care, Re-evaluation by your physician Followup: charlene - With: Cj Dennis MD - When: 2 - 3 days - Reason: Recheck today's complaints, Re-evaluation by your physician Discharge Instructions: - Discharge Summary Sheet charlene - Joint Pain charlene - Musculoskeletal Pain charlene - Wrist Pain, Adult, [id number] - How to Use Cold Therapy charlene - Joint Pain, Srul-ke-Mlym [facility] Forms: - Medication Reconciliation Form [facility] - Thank You Letter [facility] - Antibiotic Education [facility] - Prescription Opioid Use [facility] Prescriptions: - Ibuprofen 600 mg Oral Tablet - take 1 tablet by ORAL route every 6 hours As needed take with food; 20 tablet; [facility] Refills: 0, Product Selection Permitted - Tramadol 50 mg Oral Tablet - take 2 tablet by ORAL route every 8 hours as needed; 24 tablet; Refills: 0, [facility] Product Selection Permitted Signatures: Dispatcher [employer] Hari Diaz MD MD cha Tejchma, Jordan RN RN jt3 Corrections: (The following items were deleted from the chart) 10:47 10:46 PMHx: neuropathy divya lower legs; jt3 jt3 10:47 10:46 PMHx: ADD/ADHD; jt3 jt3 10:47 10:46 PSHx: partial hysterectomy; jt3 jt3
--- NOTE | 2021-03-27 12:05 | RAD REPORT ---
EXAM DESCRIPTION: RAD - Wrist Right 3 View - 03/27/2021 11:56 am CLINICAL HISTORY: Pain;Swelling, fall COMPARISON: No comparisons FINDINGS: No fracture is identified. There is no dislocation or periosteal reaction noted. Epiphyses and growth plates are normal in appearance. No foreign body or other soft tissue abnormality. IMPRESSION: Negative right wrist examination.
--- NOTE | 2021-03-27 12:06 | RAD REPORT ---
EXAM DESCRIPTION: RAD - Forearm Right - 03/27/2021 11:56 am CLINICAL HISTORY: PAIN COMPARISON: No comparisonsNone. FINDINGS: No fracture is identified. There is no dislocation or periosteal reaction noted. No foreign body or significant soft tissue abnormality. IMPRESSION: Negative right forearm examination.
[2021-03-27] MEDS ORDERED: IBUPROFEN 200 MG TAB PO ONE (12:10)
[2021-03-27] MEDS ORDERED: IBUPROFEN 400 MG TAB ONE (12:10)
[2021-03-27] MEDS ORDERED: TRAMADOL HCL 50 MG TAB ONE ×2 (12:11→12:14)
[2021-03-27 12:44] VITALS: TEMP 98.1; O2SAT 100
[2021-03-27 12:45] VITALS: BP 181/105
== END 2021-03-27 12:39 | disposition home or self-care (01) ==
LOC: ER 10:18
PROC: 2W3CX1Z Immobilization of Right Lower Arm using Splint (ICD-10-PCS; principal; 2021-03-27)
DX: M25.531 Pain in right wrist (principal); W11.XXXA Fall on and from ladder, initial encounter; Y92.009 Unspecified place in unspecified non-institutional (private) residence as the place of occurrence of the external cause; I10 Essential (primary) hypertension; Z88.2 Allergy status to sulfonamides; Z88.5 Allergy status to narcotic agent
CPT/HCPCS: 99284

== ENCOUNTER 2022-02-16 03:19 | Emergency (ER) | payer SELFPAY ==
--- OUTSIDE RECORDS SUMMARY | 2022-02-16 03:22 | XMS REPORT | Clinical Summary ---
:1970 Author Organization [facility] MD Iqbal [facility] Address [facility] [place] [address] Care Team Providers Name Role Phone Cassie Porter MD Unavailable Allergies Not on File Medications Not on file Active Problems Not on file Social History Tobacco Use Types Packs/Day Years Used Date Never Assessed Sex Assigned at Date Recorded Not on file Last Filed Vital Signs Not on file Plan of Treatment Not on file Results Not on fileafter 02/16/2021 Care Teams Emergency Dispatcher Relationship Specialty Start Date End Date Cassie Porter MD PCP - External Referring 04/29/182119 [place] [address]
[2022-02-16 04:16] LABS: Urine Blood 2+ (Negative); Urine Glucose 2+ (Negative); Urine Protein 3+ (Negative); Urine pH 7.5 (5.0-7.0)
[2022-02-16 04:25] LABS: Absolute Lymphocytes (CBC) 0.8 K/uL (0.7-4.9); MCV 86.3 fL (80-100); RBC Red Blood Cell Count 4.41 M/uL (3.86-4.86)
[2022-02-16] MEDS ORDERED: Nicardipine/NS 25 MG/250 ML KIT IV ONE (04:28)
[2022-02-16 04:32] LABS: Protime INR 0.96
[2022-02-16 04:34] LABS: Urine Bacteria <20 /HPF (<20)
[2022-02-16 04:37] LABS: Barbiturates NEGATIVE (NEGATIVE); Benzodiazepines NEGATIVE (NEGATIVE); Cocaine NEGATIVE (NEGATIVE); METHAMPHETAM NEGATIVE (NEGATIVE); Methadone NEGATIVE (NEGATIVE); Opiates NEGATIVE (NEGATIVE); Phencyclidine NEGATIVE (NEGATIVE); THC Cannibis NEGATIVE (NEGATIVE)
[2022-02-16] MEDS ORDERED: ONDANSETRON 4 MG/2 ML VIAL ONE (04:40)
[2022-02-16 04:49] LABS: ALT/SGPT 22 U/L (12-78); AST/SGOT 14 U/L (15-37); Albumin 2.3 g/dL (3.4-5.0); Alkaline Phosphatase 121 U/L (45-117); Amylase 78 U/L (25-115); BUN Blood Urea Nitrogen 25 mg/dL (7-18); Bicarbonate 32 mmol/L (21-32); Bilirubin Direct < 0.1 mg/dL (0-0.2); Bilirubin Total 0.3 mg/dL (0.2-1.0); Glomerular Filtration Rate 27 ml/min (=/>90); Lipase 289 U/L (73-393); Phosphorus 3.3 mg/dL (2.5-4.9); Potassium 3.6 mmol/L (3.5-5.1); Protein, Total 7.2 g/dL (6.4-8.2); Sodium Level 137 mmol/L (136-145)
[2022-02-16 04:54] LABS: Troponin High Sensitivity 9.6 pg/mL (<58.9)
[2022-02-16 04:55] LABS: Glucose Level 547 mg/dL (74-106)
--- NOTE | 2022-02-16 05:00 | EDPHYS ---
Physician Documentation [facility] Name: Bisi Santo Age: 51 yrs Sex: Female : 1970 Arrival Date: 02/16/2022 Time: 03:20 Bed 16 Private MD: ED Physician Laurent Adam HPI: 02/16 03:34 This 51 yrs old Black Female presents to ER via Wheelchair with complaints of Vomiting, ms3 Abdominal Pain. 03:34 51-year-old female with past medical history of insulin-dependent diabetes mellitus, ms3 hypertension presents with her aunt for altered mental status. Patient's aunt states patient came home from work and was acting abnormal with vomiting. 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 And fed patient peaches as she noted her blood pressure to be low. Blood pressure glucose level was 80. Patient's aunt denies any alleviating or inciting factors. Patient with altered mental status and unable to obtain history of present illness from patient. Patient with altered mental status and unable to obtain HPI from patient. Historical: - Allergies: 03:33 Codeine; tw5 03:33 Demerol; tw5 03:33 Morphine; tw5 03:33 Sulfa (Sulfonamide Antibiotics); tw5 - PMHx: 03:33 Diabetes - IDDM; Hypertension; tw5 - Immunization history:: Adult Immunizations unknown. - Social history:: Smoking status: Patient denies any tobacco usage or history of. ROS: 05:48 Unable to obtain ROS due to altered mental status. ms3 Exam: 03:34 Head/Face: Normocephalic, atraumatic. Eyes: Pupils equal round and reactive to light, ms3 extra-ocular motions intact. Lids and lashes normal. Conjunctiva and sclera are non-icteric and not injected. Periorbital areas with no swelling, redness, or edema. Neck: Trachea midline, no cervical lymphadenopathy. Supple, full range of motion without nuchal rigidity, or vertebral point tenderness. No Meningismus. Chest/axilla: Normal chest wall appearance and motion. Nontender with no deformity. Cardiovascular: Regular rate and rhythm with a normal S1 and S2. No gallops, murmurs, or rubs. Normal PMI, no JVD. No pulse deficits. Respiratory: Lungs have equal breath sounds bilaterally, clear to auscultation and percussion. No rales, rhonchi or wheezes noted. No increased work of breathing, no retractions or nasal flaring. Abdomen/GI: Soft, non-tender, with normal bowel sounds. No distension or tympany. No guarding or rebound. No evidence of tenderness throughout. Skin: Warm, dry with normal turgor. Normal color with no rashes, no lesions, and no evidence of cellulitis. MS/ Extremity: Pulses equal, no cyanosis. Neurovascular intact. Full, normal range of motion. 03:34 Constitutional: The patient appears listless, obviously ill, pale. 04:27 ECG was reviewed by the Attending Physician. ms3 Vital Signs: 03:30 BP 207 / 105; Pulse 95; Resp 18; Temp 98.9; Pulse Ox 96% on R/A; Weight 63.5 kg; Height tw5 5 ft. 02 in. (157.48 cm); Pain 0/10; 04:41 BP 153 / 120; Pulse 96; Resp 18; Pulse Ox 97% on R/A; lg3 04:57 BP 195 / 103; Pulse 103; Resp 17 S; Pulse Ox 100% on R/A; lg3 05:05 BP 168 / 85; Pulse 103; Resp 18 S; Pulse Ox 100% on R/A; lg3 05:22 BP 178 / 86; Pulse 106; Resp 21 S; Pulse Ox 99% on R/A; lg3 05:52 BP 162 / 93; Pulse 105; Resp 17 S; Pulse Ox 99% on R/A; lg3 06:28 BP 145 / 82; Pulse 103; Resp 16 S; Pulse Ox 100% on R/A; lg3 06:55 BP 156 / 81; Pulse 101; Resp 15 S; Pulse Ox 100% on R/A; lg3 07:26 BP 133 / 72; Pulse 103; Resp 16; Pulse Ox 100% on R/A; jd3 03:30 Body Mass Index 25.61 (63.50 kg, 157.48 cm) tw5 04:57 Map of 131 lg3 05:05 map of 110 lg3 05:22 map of 111 lg3 05:52 map of 112 lg3 06:28 map of 99 lg3 06:55 map of 100 lg3 Billingsley Coma Score: 05:02 Eye Response: to voice(3). Verbal Response: none(1). Motor Response: obeys commands(6). lg3 Total: 10. 07:26 Eye Response: to voice(3). Verbal Response: incomprehensible(2). Motor Response: jd3 localizes pain(5). Total: 10. MDM: 03:34 Differential diagnosis: Nonspecific abd pain, gastritis, viral gastroenteritis, ms3 gastroenteritis, DKA vs ICH. 03:38 Patient medically screened. ms3 05:12 Data reviewed: vital signs, nurses notes, lab test result(s), EKG, radiologic studies, ms3 and as a result, I will Transfer 2/2 Capacity. Data interpreted: pvc monitor: rate is 104 beats/min, rhythm is normal sinus rhythm, regular, with no ectopy, Interpretation: normal rhythm, tachycardia. Counseling: I had a detailed discussion with the patient and/or guardian regarding: the historical points, exam findings, and any diagnostic results supporting the discharge/admit diagnosis, lab results, radiology results, the need to transfer to another facility, [facility]. 05:47 ED course: Discussed case with Dr Chang at [facility] and she accepts patient to ICU. ms3 Agrees with 10 units IV insulin and 440 meq KCl. If glucose stays high she recommends insulin ggt.. 02/16 03:41 Order name: Glucose, Ancillary Testing; Complete Time: 03:59 EDMS 02/16 04:16 Order name: Urine Dipstick-Ancillary EDAR 02/16 04:17 Order name: Urine --Ancillary (enter results) 2 02/16 04:22 Order name: Lactate; Complete Time: 04:55 EDMS 02/16 04:22 Order name: CBC with Automated Diff; Complete Time: 04:47 EDMS 02/16 04:22 Order name: Protime (+INR); Complete Time: 04:47 EDMS 02/16 04:22 Order name: PTT, Activated Partial Thromb; Complete Time: 04:47 EDMS 02/16 04:22 Order name: Urine Microscopic Only; Complete Time: 04:47 EDMS 02/16 04:22 Order name: Urine Drug Screen; Complete Time: 04:47 EDMS 02/16 04:22 Order name: Urine Culture EDAR 02/16 04:22 Order name: Basic Metabolic Panel; Complete Time: 05:01 EDMS 02/16 04:22 Order name: Liver (Hepatic) Function; Complete Time: 05:01 EDMS 02/16 04:22 Order name: Phosphorus; Complete Time: 05:01 EDMS 02/16 04:22 Order name: Troponin High Sensitivity; Complete Time: 05:01 EDMS 02/16 03:33 Order name: EKG; Complete Time: 11:40 ms3 02/16 03:33 Order name: Cardiac monitoring; Complete Time: 04:24 ms3 02/16 03:33 Order name: EKG - Nurse/Tech; Complete Time: 04:24 ms3 02/16 03:33 Order name: IV Saline Lock; Complete Time: 04:08 ms3 02/16 03:33 Order name: NPO; Complete Time: 04:08 ms3 02/16 03:33 Order name: O2 Per Protocol; Complete Time: 04:09 ms3 02/16 03:33 Order name: O2 Sat Monitoring; Complete Time: 04:09 ms3 02/16 03:41 Order name: Head Brain Wo Cont EDMS 02/16 03:48 Order name: Accucheck; Complete Time: 04:05 ms3 02/16 03:48 Order name: IV Saline Lock - Large Bore; Complete Time: 04:05 ms3 02/16 03:48 Order name: Labs collected and sent; Complete Time: 04:05 ms3 02/16 04:07 Order name: Urine Dipstick-Ancillary (obtain specimen); Complete Time: 04:13 lg3 02/16 04:22 Order name: Acetone Level; Complete Time: 05:01 EDMS 02/16 04:22 Order name: Amylase; Complete Time: 05:01 EDMS 02/16 04:22 Order name: Lipase; Complete Time: 05:01 EDMS 02/16 04:48 Order name: SARS RAPID ms3 02/16 04:58 Order name: Blood Culture EDMS 02/16 04:58 Order name: Blood Culture EDMS 02/16 05:01 Order name: SARS-COV-2 Antigen Rapid; Complete Time: 05:39 EDMS 02/16 05:28 Order name: Chest Single View EDMS EC:27 Rate is 94 beats/min. Rhythm is regular. QRS [place] is Normal. QRS interval is normal. ms3 Clinical impression: NSR with incomplete RBBB. Interpreted by me. Reviewed by me. Administered Medications: 04:32 Drug: Zofran (Ondansetron) 8 mg Route: IVP; Site: left antecubital; lg3 05:01 Follow up: Response: No adverse reaction; Marked relief of symptoms lg3 04:41 Drug: niCARdipine 5 mg/hr Route: IV; Rate: calculated rate; Site: right antecubital; lg3 05:00 Follow up: Rate change 7.5 mg/hr lg3 05:05 Follow up: Rate change 5 ml/hr lg3 07:31 Follow up: Response: No adverse reaction; IV Status: Infusion continued upon transfer; jd3 reprot given to EMS for transfer of medication 05:00 Drug: NS 0.9% 1000 ml Route: IV; Rate: 1000 ml; Site: left hand; lg3 07:00 Follow up: Response: No adverse reaction; IV Status: Completed infusion jd3 05:50 Drug: Phenergan (promethazine) 12.5 mg Route: IM; Site: left deltoid; ja4 06:45 Follow up: Response: No adverse reaction; Marked relief of symptoms tw5 06:06 Drug: Insulin Regular Human 10 units {Co-Signature: lg3 (Yun Saucedo RN).} Route: IVP; ja4 Site: left antecubital; 06:54 Follow up: Response: No adverse reaction lg3 06:08 Drug: Potassium Chloride 20 mEq Route: IV; Rate: calculated rate; Site: left ja4 antecubital; 07:30 Follow up: IV Status: Infusion continued upon transfer jd3 06:54 CANCELLED (Physician Discretion): NS 0.9% 1000 ml IV at 1000 ml once lg3 07:33 Not Given (pt transferedd): Potassium Chloride 20 mEq IV at calculated rate once; jd3 administer over 1-2 hours Disposition: 05:48 Chart complete. ms3 Disposition Summary: 02/16/22 04:59 Transfer Ordered Transfer Location: [facility] ms3 Reason: Higher level of care ms3 Condition: Stable ms3 Problem: new ms3 Symptoms: are unchanged ms3 Accepting Physician: (02/16/22 07:42) jd3 Diagnosis - Altered mental status, unspecified ms3 - Diabetes mellitus due to underlying condition with hyperglycemia ms3 - Hypertensive emergency ms3 Forms: - Medication Reconciliation Form ms3 - SBAR form ms3 Critical care time excluding procedures: 05:21 Critical care time: Bedside Care: 50 minutes, Consultation: 10 minutes, Family ms3 Intervention: 10 minutes. Total time: 70 minutes Signatures: Dispatcher [employer] John Ballard RN RN Yun Tavares RN RN lg3 Laurent Adam, DO ms3 Jennifer Alvarez tw5 Taco May RN RN Diana Roy, PA-C PA-C deepthi4 Yun Saucedo RN, lg3 Corrections: (The following items were deleted from the chart) 05:48 03:34 All other systems are negative, ms3 ms3 06:54 03:33 NS 0.9% 1000 ml IV at 1000 ml once ordered. ms3 lg3 06:54 04:59 NS 0.9% 1000 ml IV at 1000 ml once given. ja4 lg3 06:54 06:54 NS 0.9% 1000 ml IV at 1000 ml once ordered. lg3 lg3 07:42 04:59 ms3 jd3
--- NOTE | 2022-02-16 05:00 | ER ---
Nurse's Notes [facility] Name: Bisi Santo Age: 51 yrs Sex: Female : 1970 Arrival Date: 02/16/2022 Time: 03:20 Bed 16 Private MD: Diagnosis: Altered mental status, unspecified;Diabetes mellitus due to underlying condition with hyperglycemia;Hypertensive emergency Presentation: 02/16 03:30 Chief complaint: "She came home from work acting all funny, I was thinking that maybe tw5 her sugar was low so i gave her some food. She has been vomiting. Coronavirus screen: Vaccine status: Patient reports receiving the 2nd dose of the covid vaccine. unknown. Ebola Screen: Patient negative for fever greater than or equal to 101.5 degrees Fahrenheit, and additional compatible Ebola Virus Disease symptoms Patient denies exposure to infectious person. Patient denies travel to an Ebola-affected area in the 21 days before illness onset. Initial Sepsis Screen: Does the patient meet any 2 criteria? HR > 90 bpm. Does the patient have a suspected source of infection? No. Patient's initial sepsis screen is negative. Risk Assessment: Do you want to hurt yourself or someone else? Patient reports no desire to harm self or others. Onset of symptoms is unknown. 03:30 Method Of Arrival: Wheelchair tw5 03:48 Acuity: SONIA 2 as6 Triage Assessment: 03:33 General: Appears in no apparent distress. Behavior is drowsy, quiet. Neuro: Level of tw5 Consciousness is lethargic. 07:00 GI: Reports family reported vomiting. jd3 Historical: - Allergies: 03:33 Codeine; tw5 03:33 Demerol; tw5 03:33 Morphine; tw5 03:33 Sulfa (Sulfonamide Antibiotics); tw5 - PMHx: 03:33 Diabetes - IDDM; Hypertension; tw5 - Immunization history:: Adult Immunizations unknown. - Social history:: Smoking status: Patient denies any tobacco usage or history of. Screenin:09 Abuse screen: Denies threats or abuse. Denies injuries from another. Nutritional lg3 screening: No deficits noted. Tuberculosis screening: No symptoms or risk factors identified. Fall Risk None identified. Assessment: 04:09 General: Appears distressed, Behavior is flat, listless. Pain: Unable to use pain lg3 scale. Neuro: Level of Consciousness is lethargic, listless, obtunded, Pupils are PERRLA. Cardiovascular: No deficits noted. Capillary refill < 3 seconds Clubbing of nail beds is absent JVD is absent Patient's skin is warm and dry. Respiratory: Airway is patent Trachea midline Respiratory effort is even, unlabored, Respiratory pattern is regular, symmetrical, Breath sounds are clear bilaterally. GI: Abdomen is flat, non-distended, Bowel sounds present X 4 quads. : No deficits noted. No signs and/or symptoms were reported regarding the genitourinary system. EENT: No deficits noted. No signs and/or symptoms were reported regarding the EENT system. Derm: Skin is intact, is healthy with good turgor, Skin is clammy, Skin is normal, Skin temperature is warm. Musculoskeletal: Circulation, motion, and sensation intact. decerebrate posturing noted at this time. 04:46 General:. Neuro: Level of Consciousness is lethargic, listless, obtunded, Pupils are lg3 non-reactive. 05:06 General: pt now in relaxed positioning. no decerebrate posturing at this time. . lg3 05:07 Reassessment: No changes from previously documented assessment. Patient and/or family lg3 updated on plan of care and expected duration. Pain level reassessed. 06:27 Reassessment: No changes from previously documented assessment. lg3 06:27 General: report called to ISAIAH Rai . lg3 06:55 Reassessment: No changes from previously documented assessment. pt quietly resting with lg3 family at bedside. 07:26 General: Appears in no apparent distress. Behavior is calm, cooperative. Pain: Unable jd3 to use pain scale. FLACC scale score is 0 out of 10. Neuro: Farah Agitation-Sedation Scale (RASS): -1 Drowsy Level of Consciousness is awake, lethargic, Oriented to none. Cardiovascular: Capillary refill < 3 seconds Patient's skin is warm and dry. Respiratory: Airway is patent Respiratory effort is even, unlabored, Respiratory pattern is regular, symmetrical. GI: No signs and/or symptoms were reported involving the gastrointestinal system. : No signs and/or symptoms were reported regarding the genitourinary system. EENT: No signs and/or symptoms were reported regarding the EENT system. Derm: Skin is intact, Skin is dry, Skin is normal, Skin temperature is warm. Musculoskeletal: No signs and/or symptoms reported regarding the musculoskeletal system. 07:32 Reassessment: report given to EMS. jd3 Vital Signs: 03:30 BP 207 / 105; Pulse 95; Resp 18; Temp 98.9; Pulse Ox 96% on R/A; Weight 63.5 kg; Height tw5 5 ft. 02 in. (157.48 cm); Pain 0/10; 04:41 BP 153 / 120; Pulse 96; Resp 18; Pulse Ox 97% on R/A; lg3 04:57 BP 195 / 103; Pulse 103; Resp 17 S; Pulse Ox 100% on R/A; lg3 05:05 BP 168 / 85; Pulse 103; Resp 18 S; Pulse Ox 100% on R/A; lg3 05:22 BP 178 / 86; Pulse 106; Resp 21 S; Pulse Ox 99% on R/A; lg3 05:52 BP 162 / 93; Pulse 105; Resp 17 S; Pulse Ox 99% on R/A; lg3 06:28 BP 145 / 82; Pulse 103; Resp 16 S; Pulse Ox 100% on R/A; lg3 06:55 BP 156 / 81; Pulse 101; Resp 15 S; Pulse Ox 100% on R/A; lg3 07:26 BP 133 / 72; Pulse 103; Resp 16; Pulse Ox 100% on R/A; jd3 03:30 Body Mass Index 25.61 (63.50 kg, 157.48 cm) tw5 04:57 Map of 131 lg3 05:05 map of 110 lg3 05:22 map of 111 lg3 05:52 map of 112 lg3 06:28 map of 99 lg3 06:55 map of 100 lg3 [place] Coma Score: 05:02 Eye Response: to voice(3). Verbal Response: none(1). Motor Response: obeys commands(6). lg3 Total: 10. 07:26 Eye Response: to voice(3). Verbal Response: incomprehensible(2). Motor Response: jd3 localizes pain(5). Total: 10. ED Course: 03:20 Patient arrived in ED. bp1 03:24 Laurent Adam DO is Attending Physician. ms3 03:33 Triage completed. tw5 03:33 Arm band placed on. tw5 04:04 Yun Saucedo, RN is Primary Nurse. lg3 04:05 Inserted saline lock: 20 gauge in left antecubital area, using aseptic technique. Blood lg3 collected. 04:09 Patient has correct armband on for positive identification. Placed in gown. Bed in low lg3 position. Call light in reach. Side rails up X2. Client placed on continuous cardiac and pulse oximetry monitoring. NIBP monitoring applied. vehicle monitor technician on. Door closed. Noise minimized. Warm blanket given. Family accompanied patient. 04:19 Head Brain Wo Cont In Process Unspecified. EDMS 04:24 Initial lab(s) drawn, by me, sent to lab. EKG done, by ED staff, reviewed by Laurent Adam DO. 04:24 Lipase Sent. lg3 04:24 Troponin High Sensitivity Sent. lg3 04:24 Acetone Level Sent. lg3 04:24 Amylase Sent. lg3 04:24 Basic Metabolic Panel Sent. lg3 04:24 Liver (Hepatic) Function Sent. lg3 04:24 Phosphorus Sent. lg3 04:24 CBC with Automated Diff Sent. lg3 04:24 Protime (+INR) Sent. lg3 04:24 PTT, Activated Partial Thromb Sent. lg3 04:57 Urine Dipstick-Ancillary Sent. mw2 05:00 Blood Culture Sent. lg3 05:00 Blood Culture Sent. lg3 05:12 intiated a transfer with Sofie Saucedo from [facility] Transfer [place]. mw2 05:[address] Adam with the Doctor from [facility]. mw2 05:47 Chest Single View In Process Unspecified. EDMS 05:57 administrative approval given to [facility] by Sofie Saucedo Rn/ patient has been eb accepted to [facility] [address] 2 Bed 17/ Dr. Chang has accepted the patient in transfer/ report to be called to [phone]. 06:56 No provider procedures requiring assistance completed. Inserted saline lock: 22 gauge lg3 in left hand, using aseptic technique. 06:57 Patient transferred, IV remains in place. intact, No redness/swelling at site. lg3 Administered Medications: 04:32 Drug: Zofran (Ondansetron) 8 mg Route: IVP; Site: left antecubital; lg3 05:01 Follow up: Response: No adverse reaction; Marked relief of symptoms lg3 04:41 Drug: niCARdipine 5 mg/hr Route: IV; Rate: calculated rate; Site: right antecubital; lg3 05:00 Follow up: Rate change 7.5 mg/hr lg3 05:05 Follow up: Rate change 5 ml/hr lg3 07:31 Follow up: Response: No adverse reaction; IV Status: Infusion continued upon transfer; jd3 reprot given to EMS for transfer of medication 05:00 Drug: NS 0.9% 1000 ml Route: IV; Rate: 1000 ml; Site: left hand; lg3 07:00 Follow up: Response: No adverse reaction; IV Status: Completed infusion jd3 05:50 Drug: Phenergan (promethazine) 12.5 mg Route: IM; Site: left deltoid; ja4 06:45 Follow up: Response: No adverse reaction; Marked relief of symptoms tw5 06:06 Drug: Insulin Regular Human 10 units {Co-Signature: lg3 (Yun Saucedo RN).} Route: IVP; 4 Site: left antecubital; 06:54 Follow up: Response: No adverse reaction lg3 06:08 Drug: Potassium Chloride 20 mEq Route: IV; Rate: calculated rate; Site: left [facility] antecubital; 07:30 Follow up: IV Status: Infusion continued upon transfer jd3 06:54 CANCELLED (Physician Discretion): NS 0.9% 1000 ml IV at 1000 ml once lg3 07:33 Not Given (pt transferedd): Potassium Chloride 20 mEq IV at calculated rate once; jd3 administer over 1-2 hours Medication: 06:56 VIS not applicable for this client. lg3 Intake: Outcome: 04:59 ER care complete, transfer ordered by ms3 06:56 Transferred by ground EMS by private ambulance to [facility], [facility], lg3 Transfer form completed. X-rays sent w/ patient. 06:56 Condition: stable 06:56 Instructed on the need for transfer, Demonstrated understanding of instructions. 07:42 Patient left the ED. jd3 Signatures: Dispatcher [employer] John Ballard RN RN jd3 Christiano Bingham 2 Brittney Barros Lacie, RN RN lg3 Laurent Adam, DO ms3 Shanika Hernandez Jennifer tw5 Jhonatan Moncada RN RN as6 Taco May RN RN ja4 Yun Saucedo RN lg3 Corrections: (The following items were deleted from the chart) 03:48 03:30 Acuity: SONIA 3 tw5 as6 05:28 04:57 BP 195 / 103; Pulse 103bpm; Resp 17bpm; Spontaneous; Pulse Ox 100% RA; 3 3 05:28 05:05 BP 168 / 85; Pulse 103bpm; Resp 18bpm; Spontaneous; Pulse Ox 100% RA; 3 3 05:28 05:22 BP 178 / 86; ja4 3 06:54 04:59 NS 0.9% 1000 ml IV at 1000 ml in left antecubital 4 lg3
[2022-02-16] MEDS ORDERED: NA CHLORIDE 0.9% 1,000 ML ONE (05:03)
[2022-02-16 05:29] LABS: SARS-CoV-2 Antigen Rapid Res Positive (Negative)
[2022-02-16] MEDS ORDERED: PROMETHAZINE INJ 25 MG/ML AMP ONE (05:49)
[2022-02-16] MEDS ORDERED: INSULIN -REGULAR HUMAN 50 UNIT/0.5 ML ML ONE (06:06)
--- NOTE | 2022-02-16 06:06 | RAD REPORT ---
EXAM DESCRIPTION: RAD - Chest Single View - 02/16/2022 5:46 am CLINICAL HISTORY: Vomiting, abdominal pain COMPARISON: Portable 12/26/2020 TECHNIQUE: AP portable chest image was obtained 02/16/2022 5:46 am . FINDINGS: Lung volumes are low. No focal lung infiltrate. Interstitial pattern matches comparison. H eart and vasculature are normal for shallow inspiration exam. No measurable pleural effusion and no p neumothorax. No acute bony abnormality seen. No acute aortic findings suspected. IMPRESSION: No acute cardiopulmonary process. No significant change from comparison study.
[2022-02-16] MEDS ORDERED: KCL 20 MEQ/100 mL IVPB 100 ML IV ONE (06:07)
--- NOTE | 2022-02-16 11:28 | RAD REPORT ---
EXAM DESCRIPTION: CT - Head Brain Wo Cont - 02/16/2022 4:17 am CLINICAL HISTORY: 51 years Female AMS TECHNIQUE: Multiple axial CT images of the brain were performed followed by sagittal and coronal rec onstructed images. The CT study is performed according to ALARA (as low as reasonably achievable) or ALARA/IMAGE GENTLY, with automatic adjustment of mA and/or kV according to patient size. Performed on: 02/16/2022 at 4:15 AM COMPARISON: 12/26/2020. FINDINGS: Brain: There is no evidence of mass, acute mass effect or midline shift. There are no acut e extra-axial fluid collections. There is no evidence of acute intracranial hemorrhage. The cerebra l sulci and ventricles are normal in size and configuration. There are no focal abnormal areas of inc reased or decreased attenuation. There is no evidence of a hyperdense MCA. Paranasal Sinuses and Mastoids: There is moderate mucosal thickening of the right maxillary sinus. Th e mastoid air cells are clear. Orbits: The orbital contents are grossly unremarkable. Bones: No acute osseous abnormalities are identified. Soft Tissues: No focal soft tissue abnormalities are identified. IMPRESSION: 1. No evidence of acute intracranial pathology. No significant change when compared to the prior study. 2. Moderate mucosal thickening of the right maxillary sinus. Electronically signed by: Chasity Barton DO 02/16/2022 4:40 AM CDT Due to temporary technical issues with the PACS/Fluency reporting system, reports are being signed by the in house radiologists without review as a courtesy to insure prompt reporting. The interpreting radiologist is fully responsible for the content of the report.
[2022-02-17 17:47] VITALS: TEMP 98.9
[2022-02-17 18:00] VITALS: O2SAT 100
[2022-02-17 18:08] VITALS: BP 133/72
--- NOTE | 2022-02-19 14:16 | EKG ---
Test Date: 2022-02-16 Test Time: 04:27:03 Marble Machine Tender: MEASUREMENT RESULTS: Intervals: Rate: 94 MD: 128 QRSD: 92 QT: 346 QTc: 432 [place]: P: 58 MD: 128 QRS: -16 T: 27 INTERPRETIVE STATEMENTS: Normal sinus rhythm Right atrial enlargement Septal infarct, age undetermined Abnormal ECG Compared to ECG 12/26/2020 20:32:56 Atrial abnormality now present Myocardial infarct finding now present Incomplete right bundle-branch block no longer present Electronically Signed On 02-19-22 14:11:54 CDT by Isaiah Hogan
--- NOTE | 2022-02-20 17:31 | EKG ---
Test Date: 2022-02-16 Test Time: 04:27:32 Scallop Raker: MEASUREMENT RESULTS: Intervals: Rate: 94 ID: [id number] QRSD: 102 QT: 382 QTc: 477 [place]: P: 66 ID: [id number] QRS: -14 T: 29 INTERPRETIVE STATEMENTS: Normal sinus rhythm Biatrial enlargement Incomplete right bundle branch block Septal infarct, age undetermined Abnormal ECG Compared to ECG 02/16/2022 04:27:03 Incomplete right bundle-branch block now present Myocardial infarct finding still present Electronically Signed On 02-20-22 17:28:51 CDT by Isaiah Hogan
== END 2022-02-16 07:42 | disposition short-term general hospital (02) ==
LOC: ER 03:19
DX: U07.1 COVID-19 (principal); E08.65 Diabetes mellitus due to underlying condition with hyperglycemia; I16.1 Hypertensive emergency; Z88.2 Allergy status to sulfonamides; Z88.5 Allergy status to narcotic agent
CPT/HCPCS: 36415; 70450; 71045; 80048; 80076; 80307; 81003; 81015; 81025; 82010; 82150; 82947; 83605; 83690; 84100; 84484; 85025; 85610; 85730; 87040; 87086; 87088; 87811; 93005; 96372; 99285; J1815; J2405; J2550; J3480; J7030

== ENCOUNTER 2022-04-09 06:04 | Observation (INO) | payer OTHER, SELFPAY ==
--- OUTSIDE RECORDS SUMMARY | 2022-04-09 06:07 | XMS REPORT | Clinical Summary ---
:1970 Author Organization [facility] MD [facility] Address [facility] [place] [address] Care Team Providers Name Role Phone Cassie Porter MD Unavailable Allergies Not on File Medications Not on file Active Problems Not on file Social History Tobacco Use Types Packs/Day Years Used Date Smoking Tobacco: Never Assessed Sex Assigned at Date Recorded Not on file Last Filed Vital Signs Not on file Plan of Treatment Not on file Results Not on fileafter 04/09/2021 Care Teams Trust Clerk Relationship Specialty Start Date End Date Cassie Porter MD PCP - External Referring 04/29/182119 [place] [address]
--- OUTSIDE RECORDS SUMMARY | 2022-04-09 06:12 | XMS REPORT | Continuity of Care Document ---
:1970 Author Organization [facility] t Address [address] [place] [address] Care Team Providers Name Role Phone Griselda SWARTZ, Darlene Primary Care Physician [phone] Bernardo MAGALLANES, Ara Conte Attending Clinician Clinton Carpenter MD Attending Clinician [phone] Diamond Oliveira MD Attending Clinician [phone] John Franks MD Attending Clinician JOHN FRANKS Attending Clinician Unavailable CLINTON CARPENTER Admitting Clinician Unavailable Problems Condition Condition Condition Status Onset Resolution Last Treating Co mments Source Name Details Category Date Date Treatment Clinician Date Hypertensi Hypertensi Disease Active C HI [facility] ve urgency ve urgency 02-16 Sabi kes 00:00: [facility] 00 Center Allergies, Adverse Reactions, Alerts Allergy Allergy Status Severity Reaction(s) Onset Inactive Treating Comm ents Source Name Type Date Date Clinician Sulfa Propensi Active 2021-05 Antibiot ty to 06-02 ics - adverse 00:00: CLASS reaction 00 to drug Sulfur Propensi Active Dioxide ty to 8 adverse 00:00: reaction 00 to drug NO KNOWN Allergy Active [facility] Social History Social Habit Start Date Stop Date Quantity Comments Source Sex Assigned At [birth year] [facility] [address] Sab[facility]es 00:00:00 [facility]:00 [facility] Medications Ordered Filled Start Stop Current Ordering Indication Dosage Frequency Signature Comments Components Source Medication Medication Date Date Medication? Clinician (SIG) Name Name Dose 2021-05 No Unknown 06-02 00:00: 00 INJECT 10 2021-05 No UNITS IN -07 THE AM AND 00:00: 10 UNITS IN 00 THE EVENING insulin 2022- Yes 10U Inject [address] [facility] 70/30, 02-22 [facility] insulin 00:00: 23:59 subcutaneo Med ical NPH-insulin 00 :[address] regular, (two) (HumuLIN times 70/30) 100 daily unit/mL before (70-30) meals. injection insulin 2022- Yes 10U Inject [address] [facility] [address] 70/30, 02-22 [facility] insulin 00:00: 23:59 subcutaneo Med ical NPH-insulin 00 :[address] regular, (two) (HumuLIN times 70/30) 100 daily unit/mL before (70-30) meals. injection insulin 2022- Yes 10U Inject [address] 70/30, 02-22 [facility] insulin 00:00: 23:59 subcutaneo Med ical NPH-insulin 00 :[address] regular, (two) (HumuLIN times 70/30) 100 daily unit/mL before (70-30) meals. injection amLODIPine 2021- Yes 10mg QD Take [address] [facility] [address] (NORVASC) 02-22- tablet (10 Celia es 10 MG 00:00: 23:59 mg total) Medica l tablet 00 :00 by mouth Center daily for 90 days. carvediloL 2021- Yes 25mg Q.5D Take [address] [facility] [address] (COREG) 25 02-22-28 tablet (25 Sabi kes MG tablet 00:00: 23:59 mg total) Me dical 00 :00 by mouth 2 Center (two) times daily for 90 days. amLODIPine 2021- Yes 10mg QD Take [address] [facility] (NORVASC) 02-22-28 tablet (10 Celia es 10 MG 00:00: 23:59 mg total) Medica l tablet 00 :00 by mouth Center daily for 90 days. carvediloL 2021- Yes 25mg Q.5D Take [address] [address] (COREG) 25 02-22-28 tablet (25 Sabi kes MG tablet 00:00: 23:59 mg total) Me dical 00 :00 by mouth 2 Center (two) times daily for 90 days. amLODIPine 2021- Yes 10mg QD Take [address] [facility] (NORVASC) 02-22 tablet (10 Celia es 10 MG 00:00: 23:59 mg total) Medica l tablet 00 :00 by mouth Center daily for 90 days. carvediloL 2021- Yes 25mg Q.5D Take [address] (COREG) 25 02-22 tablet (25 Sabi kes MG tablet 00:00: 23:59 mg total) Me dical 00 :00 by mouth 2 Center (two) times daily for 90 days. insulin 2021- No 4U Inject 4 [facility] lispro 02-22 [facility] (HumaLOG) 00:00: 00:00 subcutaneo M edical 100 unit/mL 00 :00 usly 3 Center injection (three) times daily before meals Additional dose If BS > 150 take 2 units, > 200 - 4 units, > 250 - 6 units, > 300 - 8 units, > 350 - 10 units, > 400 take 12 units, and call PCP.. insulin 2021- No 10U QD Inject [address] detemir 02-22 Units [facility] U-100 00:00: 00:00 subcutaneo Medic al (LEVEMIR) 00 :00 usly Center 100 unit/mL nightly. injection insulin 2021- No 4U Inject 4 [facility] lispro 02-[facility] (HumaLOG) 00:00: 00:00 subcutaneo M edical 100 unit/mL 00 :00 usly 3 Center injection (three) times daily before meals Additional dose If BS > 150 take 2 units, > 200 - 4 units, > 250 - 6 units, > 300 - 8 units, > 350 - 10 units, > 400 take 12 units, and call PCP.. insulin 2021- No 10U QD Inject [address] detemir 02-22 09-29 [facility] U-100 00:00: 00:00 subcutaneo Medic al (LEVEMIR) 00 :00 usly Center 100 unit/mL nightly. injection insulin 2021- No 4U Inject 4 [facility] lispro 02-22 09-29 [facility] (HumaLOG) 00:00: 00:00 subcutaneo M edical 100 unit/mL 00 :00 usly 3 Center injection (three) times daily before meals Additional dose If BS > 150 take 2 units, > 200 - 4 units, > 250 - 6 units, > 300 - 8 units, > 350 - 10 units, > 400 take 12 units, and call PCP.. insulin 2021- No 10U QD Inject [address] detemir 02-22-29 [facility] U-100 00:00: 00:00 subcutaneo Medic al (LEVEMIR) 00 :00 usly Center 100 unit/mL nightly. injection insulin 2021- No 4U Inject 4 [facility] lispro - 09-29 [facility] (HumaLOG) 00:00: 00:00 subcutaneo M edical 100 unit/mL 00 :00 usly 3 Center injection (three) times daily before meals Additional dose If BS > 150 take 2 units, > 200 - 4 units, > 250 - 6 units, > 300 - 8 units, > 350 - 10 units, > 400 take 12 units, and call PCP.. insulin 2021- No 10U QD Inject [address] detemir 02-22 09-29 [facility] U-100 00:00: 00:00 subcutaneo Medic al (LEVEMIR) 00 :00 usly Center 100 unit/mL nightly. injection insulin 2021- No 4U Inject 4 [facility] lispro -29 09-29 [facility] (HumaLOG) 00:00: 00:00 subcutaneo M edical 100 unit/mL 00 :00 usly 3 Center injection (three) times daily before meals Additional dose If BS > 150 take 2 units, > 200 - 4 units, > 250 - 6 units, > 300 - 8 units, > 350 - 10 units, > 400 take 12 units, and call PCP.. insulin 2021- No 10U QD Inject [address] detemir 02-22 [facility] U-100 00:00: 00:00 subcutaneo Medic al (LEVEMIR) 00 :00 usly Center 100 unit/mL nightly. injection insulin 2021- No 4U Inject 4 [facility] lispro 02-[facility] (HumaLOG) 00:00: 00:00 subcutaneo M edical 100 unit/mL 00 :00 usly 3 Center injection (three) times daily before meals Additional dose If BS > 150 take 2 units, > 200 - 4 units, > 250 - 6 units, > 300 - 8 units, > 350 - 10 units, > 400 take 12 units, and call PCP.. insulin 2021- No 10U QD Inject [address] detemir 02-22 [facility] U-100 00:00: 00:00 subcutaneo Medic al (LEVEMIR) 00 :00 usly Center 100 unit/mL nightly. injection Dose No Unknown 01-23 00:00: 00 Lexapro 10 No 1mg mg tablet 01-11 00:00: 00 Dose No Unknown 12-29 00:00: 00 losartan 50 No 1mg mg-hydrochl 12-26 orothiazide 00:00: 12.5 mg 00 tablet metformin No 1mg 1,000 mg 12-26 tablet 00:00: 00 Vital Signs Vital Name Observation Time Observation Value Comments Source WEIGHT 2022-02-17 05:00:00 72.3 kg WEIGHT 2022-02-16 09:30:00 70.3 kg WEIGHT 2022-02-17 05:00:00 72.3 kg WEIGHT 2022-02-16 09:30:00 70.3 kg WEIGHT 2022-02-17 05:00:00 72.3 kg WEIGHT 2022-02-16 09:30:00 70.3 kg BP Systolic 2022-04-02 10:03:00 152 mm[Hg] BP Diastolic 2022-04-02 10:03:00 87 mm[Hg] Weight Measured 2022-04-02 10:03:00 196.00 pounds Height Measured 2022-04-02 10:03:00 62.50 inches Body Temperature 2022-04-02 10:03:00 98.30 degrees Heart Rate 2022-04-02 10:03:00 82.00 /min Respiratory Rate 2022-04-02 10:03:00 Systolic blood 2022-02-22 10:35:00 116 mm[Hg] [facility] Diastolic blood 2022-02-22 10:35:00 68 mm[Hg] [facility] Heart rate 2022-02-22 10:35:00 84 /min [facility] Body temperature 2022-02-22 10:35:00 36.5 Cori [facility] Respiratory rate 2022-02-22 10:35:00 16 /min [facility] Oxygen saturation in 2022-02-22 10:35:00 98 /min [facility] Arterial blood by Medical Ce nter Pulse oximetry Body weight 2022-02-17 16:15:00 72.3 kg [facility] BMI 2022-02-17 16:15:00 27.36 kg/m2 [facility] Body height 2022-02-17 16:15:00 162.6 cm [facility] Body Temperature 2021-01-11 09:40:00 98.80 degrees Heart Rate 2021-01-11 09:40:00 100.00 /min Respiratory Rate 2021-01-11 09:40:00 17.00 /min BP Systolic 2021-01-11 09:40:00 150 mm[Hg] BP Diastolic 2021-01-11 09:40:00 98 mm[Hg] Weight Measured 2021-01-11 09:40:00 156.20 pounds Height Measured 2021-01-11 09:40:00 62.50 inches BP Systolic 2021-01-11 09:08:00 BP Diastolic 2021-01-11 09:08:00 Weight Measured 2021-01-11 09:08:00 145.00 pounds Height Measured 2021-01-11 09:08:00 62.50 inches Body Temperature 2021-01-11 09:08:00 Heart Rate 2021-01-11 09:08:00 Respiratory Rate 2021-01-11 09:08:00 BP Systolic 2020-12-29 10:28:00 160 mm[Hg] BP Diastolic 2020-12-29 10:28:00 100 mm[Hg] Weight Measured 2020-12-29 10:28:00 160.80 pounds Height Measured 2020-12-29 10:28:00 62.60 inches Body Temperature 2020-12-29 10:28:00 98.30 degrees Heart Rate 2020-12-29 10:28:00 95.00 /min Respiratory Rate 2020-12-29 10:28:00 17.00 /min BP Systolic 2020-12-26 14:30:00 197 mm[Hg] BP Diastolic 2020-12-26 14:30:00 131 mm[Hg] Weight Measured 2020-12-26 14:30:00 163.20 pounds Height Measured 2020-12-26 14:30:00 62.60 inches Body Temperature 2020-12-26 14:30:00 98.20 degrees Heart Rate 2020-12-26 14:30:00 88.00 /min Respiratory Rate 2020-12-26 14:30:00 17.00 /min Procedures Procedure Date / Time Performed Performing Clinician Sour e POCT-GLUCOSE METER 2022-02-22 10:39:00 [facility] POCT-GLUCOSE METER 2022-02-22 07:49:00 [facility] 2022-02-22 04:19:00 Ivan Aguilar [facility] POCT-GLUCOSE METER 2022-02-21 23:22:00 [facility]SE [facility] 2022-02-21 16:22:00 Joycelyn [facility] POCT-GLUCOSE METER 2022-02-21 11:29:00 Joycelyn [facility] POCT-GLUCOSE METER 2022-02-21 07:39:00 Joycelyn John [facility] BASIC METABOLIC PANEL 2022-02-21 03:46:00 Ivan Aguilar [facility] POCT-GLUCOSE METER 2022-02-21 00:17:00 John Franks [facility] MR CERVICAL SPINE WITH & 2022-02-20 18:30:00 Zander Ham [facility] WITHOUT IV CONTRAST Medical Cent er XR CHEST 1 VIEW PORTABLE 2022-02-20 15:20:00 Joycelyn Scooterspenser odonnell [facility] / BEDSIDE [facility] POCT-GLUCOSE METER 2022-02-20 12:50:00 John Franks [facility] CBC W/PLT COUNT & AUTO 2022-02-20 06:08:00 Levi Hopkins [facility] DIFFERENTIAL [facility] COMPREHENSIVE METABOLIC 2022-02-20 06:08:00 Levi Hopkins [facility] PANEL [facility] MAGNESIUM 2022-02-20 06:08:00 Levi Hopkins [facility] PHOSPHORUS 2022-02-20 06:08:00 Levi Hopkins [facility] CBC W/PLT COUNT & AUTO 2022-02-20 06:08:00 Levi Hopkins [facility] DIFFERENTIAL [facility] POCT-GLUCOSE METER 2022 18:11:00 TeeDiamond [facility] POCT-GLUCOSE METER 2022 16:16:00 Diamond Oliveira [facility] POCT-GLUCOSE METER 2022 12:41:00 Tee [facility] VITAMIN D, 25-HYDROXY 2022 09:30:00 Chioma Bustillos [facility] POCT-GLUCOSE METER 2022 08:14:00 Clinton Carpenter [facility] CBC W/PLT COUNT & AUTO 2022 02:10:00 Levi Hopkins [facility] DIFFERENTIAL [facility] COMPREHENSIVE METABOLIC 2022 02:10:00 Kellie Levi [facility] MAGNESIUM 2022 02:10:00 Kellie Levi [facility] PHOSPHORUS 2022 02:10:00 KellieJustenke [facility] PTH, INTACT 2022 02:10:00 Richard Kooine [facility] CBC W/PLT COUNT & AUTO 2022 02:10:00 Kellie, Levi [facility] POCT-GLUCOSE METER 2022-02-18 22:01:00 Jayden [facility] POCT-GLUCOSE METER 2022-02-18 17:32:00 Jayden [facility] POCT-GLUCOSE METER 2022-02-18 13:00:00 [facility] 2D ECHO W/ DOPPLER 2022-02-18 10:36:26 Marina Logan [facility] (CW/PW/COLOR) [facility] POCT-GLUCOSE METER 2022-02-18 09:25:00 [facility] US RENAL COMPLETE 2022-02-18 08:33:00 Aissatou [facility] POCT-GLUCOSE METER 2022-02-18 05:33:00 Jayden Nance [facility] CBC W/PLT COUNT & AUTO 2022-02-18 04:09:00 Kellie, Levialecia SMITH [facility] DIFFERENTIAL [facility] COMPREHENSIVE METABOLIC 2022-02-18 04:09:00 Kellie, Levi [facility] MAGNESIUM 2022-02-18 04:09:00 KellieLevi [facility] PHOSPHORUS 2022-02-18 04:09:00 Kellie, Levi [facility] CBC W/PLT COUNT & AUTO 2022-02-18 04:09:00 Levi Hopkins [facility] DIFFERENTIAL [facility] POCT-GLUCOSE METER 2022-02-17 22:53:00 Clinton Carpenter [facility] MR BRAIN WITHOUT IV 2022-02-17 18:29:00 Levi Hopkins [facility] CONTRAST [facility] POCT-GLUCOSE METER 2022-02-17 18:27:00 Clinton Carpenter [facility] TSH/FREE T4 IF INDICATED 2022-02-17 17:06:00 Aissatou Henry [facility] T4, FREE 2022-02-17 17:06:00 [facility] PO[facility]SE METER 2022-02-17 16:29:00 JaydenJohnNance [facility] POCT-GLUCOSE METER 2022-02-17 15:14:00 Jayden, [facility] POCT-GLUCOSE METER 2022-02-17 14:10:00 Jayden [facility] POCT-GLUCOSE METER 2022-02-17 13:18:00 Jayden Nance [facility] ECG 12-LEAD 2022-02-17 12:16:45 [facility] 12-LEAD 2022-02-17 12:16:45 Unknown, Hl7 [facility] ECG 12-LEAD 2022-02-17 12:16:45 Unknown, Hl7 [facility] BASIC METABOLIC PANEL 2022-02-17 12:12:00 Ivan Aguilar [facility] POCT-GLUCOSE METER 2022-02-17 11:36:00 Jayden Nance [facility] POCT-GLUCOSE METER 2022-02-17 10:04:00 Jayden, Nance [facility] POCT-GLUCOSE METER 2022-02-17 09:01:00 Jayden Nance [facility] BASIC METABOLIC PANEL 2022-02-17 08:53:00 [facility] POCT-GLUCOSE METER 2022-02-17 08:13:00 [facility] 2022-02-17 05:41:00 Aguilar [facility] MAGNESIUM 2022-02-17 05:41:00 Aguilar [facility] PHOSPHORUS 2022-02-17 05:41:00 [facility] POCT-GLUCOSE METER 2022-02-17 05:18:00 Jayden, [facility] HEMOGLOBIN A1C 2022-02-17 03:29:00 [facility] W/PLT COUNT & AUTO 2022-02-17 03:29:00 [facility] COMPREH[facility]IVE METABOLIC 2022-02-17 03:29:00 [facility]UM 2022-02-17 03:29:00 [facility] PHOS[facility]US 2022-02-17 03:29:00 [facility] CBC W/PLT COUNT & AUTO 2022-02-17 03:29:00 KellieLevi [facility] POCT-GLUCOSE METER 2022-02-17 02:55:00 Jayden [facility] BASIC METABOLIC PANEL 2022-02-17 01:40:00 [facility] POCT-GLUCOSE METER 2022-02-17 01:22:00 Jayden [facility] POCT-GLUCOSE METER 2022-02-17 00:01:00 [facility]KUB 1 VIEW 2022-02-16 22:34:00 Ivan Aguilar [facility] PORTABLE [facility] POCT-GLUCOSE METER 2022-02-16 22:18:00 Jayden [facility] BLOOD GAS, ARTERIAL 2022-02-16 21:43:00 Ivan Aguilar [facility] XR CHEST 1 VIEW PORTABLE 2022-02-16 21:29:00 Ivan Aguilar [facility] / BEDSIDE [facility] POCT-GLUCOSE METER 2022-02-16 21:02:00 Jayden [facility] KETONE, BLOOD 2022-02-16 20:59:00 Jeff [facility] POCT-GLUCOSE METER 2022-02-16 20:22:00 Jayden [facility] BASIC METABOLIC PANEL 2022-02-16 20:16:00 Ivan Aguilar [facility] POCT-GLUCOSE METER 2022-02-16 18:06:00 Jayden [facility] POCT-GLUCOSE METER 2022-02-16 17:15:00 Jayden [facility] POCT-GLUCOSE METER 2022-02-16 16:01:00 Jayden [facility] POCT-GLUCOSE METER 2022-02-16 15:03:00 Jayden [facility] BLOOD CULTURE 2022-02-16 14:48:00 [facility]INAL[facility] W/ REFLEX 2022-02-16 14:29:00 Desmond [facility] URINE [facility] POCT-GLUCOSE METER 2022-02-16 14:16:00 Jayden [facility] BLOOD CULTURE 2022-02-16 13:40:00 Desmond [facility] POCT-GLUCOSE METER 2022-02-16 13:24:00 Bernardo Ara [facility] POCT-GLUCOSE METER 2022-02-16 12:09:00 [facility] EEG AWAKE AND DROWSY 2022-02-16 11:47:00 Jayden, [facility] CBC W/PLT COUNT & AUTO 2022-02-16 11:25:00 [facility] DIFFERENTIAL [facility] BASIC METABOLIC PANEL 2022-02-16 11:25:00 [facility] HIGH SENSITIVITY TROPONIN 2022-02-16 11:25:00 [facility] HEPATIC FUNCTION PANEL 2022-02-16 11:25:00 [facility] LACTIC ACID, VENOUS 2022-02-16 11:25:00 [facility] CBC W/PLT COUNT & AUTO 2022-02-16 11:25:00 [facility] Nance [facility] DIFFERENTIAL [facility] SARS-COV2/RT-PCR ([facility] & 2022-02-16 11:03:00 [facility] REF LABS) [facility] MRSA SCREEN 2022-02-16 11:03:[address] [facility] XR CHEST 1 VIEW PORTABLE 2022-02-16 10:40:00 [facility] / BEDSIDE [facility] POCT-GLUCOSE METER 2022-02-16 09:16:00 [facility] Plan of Care Planned Activity Planned Date Details Comments Source Future Scheduled 2022-01-25 INFLUENZA VACCINE (#1) [facility] 00:00:00 [code = INFLUENZA Medical Ce nter VACCINE (#1)] Future Scheduled 2022-01-25 INFLUENZA VACCINE (#1) [facility] 00:00:00 [code = INFLUENZA Medical Ce nter VACCINE (#1)] Future Scheduled 2022-01-25 INFLUENZA VACCINE (#1) [facility] 00:00:00 [code = INFLUENZA Medical Ce nter VACCINE (#1)] Future Scheduled 2021-05-29 Screening for malignant [facility] 00:00:00 neoplasm of breast Medical C enter (procedure) [code = 847755995] Future Scheduled 2021-05-29 Screening for malignant [facility] 00:00:00 neoplasm of breast Medical C enter (procedure) [code = 941451901] Future Scheduled 2021-05-29 Screening for malignant [facility] 00:00:00 neoplasm of breast Medical C enter (procedure) [code = 074824005] Future Scheduled 2021-05-[address] [facility] 00:00:00 (12+) [code = Medical Center DEPRESSION SCREENING (12+)] Future Scheduled 2021-05-[address] [facility] 00:00:00 (12+) [code = Medical Center DEPRESSION SCREENING (12+)] Future Scheduled 2021-05-[address] [facility] 00:00:00 (12+) [code = Medical Center DEPRESSION SCREENING (12+)] Future Scheduled 2019 SHINGLES VACCINES ([address] [facility] 00:00:00 2[facility] Future Scheduled 2019 SHINGLES VACCINES ([address] [facility] 00:00[facility]00 [facility] Future Scheduled 2019 SHINGLES VACCINES ([address] [facility] 00:00:00 2) [facility] 2)] Future Scheduled 2014 Lipid panel (procedure) [facility] 00:00:00 [code = [id number]] Medical Ce nter Future Scheduled 2014 Lipid panel (procedure) [facility] 00:00:00 [code = 38321939] Medical Ce nter Future Scheduled 2014 Lipid panel (procedure) [facility] 00:00:00 [code = 01197420] Medical Ce nter Future Scheduled 1990 Screening for malignant [facility] 00:00:00 neoplasm of cervix Medical C enter (procedure) [code = 764636825] Future Scheduled 1990 Screening for malignant [facility] 00:00:00 neoplasm of cervix Medical C enter (procedure) [code = 518228819] Future Scheduled 1990 Screening for malignant [facility] 00:00:00 neoplasm of cervix Medical C enter (procedure) [code = 389649938] Future Scheduled 1988-02-20 DTAP/TDAP/TD VACCINES [facility] 00:00:00 (1 - Tdap) [code = Medical C enter DTAP/TDAP/TD VACCINES (1 - Tdap)] Future Scheduled 1988-02-20 DTAP/TDAP/TD VACCINES [facility] 00:00:00 (1 - Tdap) [code = Medical C enter DTAP/TDAP/TD VACCINES (1 - Tdap)] Future Scheduled 1988-02-20 DTAP/TDAP/TD VACCINES [facility] 00:00:00 (1 - Tdap) [code = Medical C enter DTAP/TDAP/TD VACCINES (1 - Tdap)] Future Scheduled 1987 HEPATITIS C [facility]CRE[facility]ING [facility] 00:00:00 [code = HEPATITIS C Medical Center SCREENING] Future Scheduled 1987 HEPATITIS C [facility]CRE[facility]ING [facility] 00:00:00 [code = HEPATITIS C Medical Center SCREENING] Future Scheduled 1987 HEPATITIS C [facility]ING [facility] 00:00:00 [code = HEPATITIS C Medical Center SCREENING] Future Scheduled 1969 COVID-19 VACCINE (#1) [facility] 00:00:00 [code = COVID-[address] VACCINE (#1)] Future Scheduled 1969 COVID-19 VACCINE (#1) [facility] 00:00:00 [code = COVID-[address] VACCINE (#1)] Future Scheduled 1969 COVID-19 VACCINE (#1) [facility] 00:00:00 [code = COVID-[address] VACCINE (#1)] Future Scheduled 1969 CT Colonography (combo) [facility] 00:00:00 [code = CT Colonography Medi gena Center (combo)] Future Scheduled 1969 Screening for malignant [facility] 00:00:00 neoplasm of colon Medical Ce nter (procedure) [code = 095010352] Future Scheduled 1969 Screening for malignant [facility] 00:00:00 neoplasm of colon Medical Ce nter (procedure) [code = 467992379] Future Scheduled 1969 Screening for malignant [facility] 00:00:00 neoplasm of colon Medical Ce nter (procedure) [code = 763022041] Future Scheduled 1969 Screening for malignant [facility] 00:00:00 neoplasm of colon Medical Ce nter (procedure) [code = 262064804] Future Scheduled 1970 Sigmoidoscopy [code = [facility] S[facility]oscopy] Medical Cente r Future Scheduled 1969 CT Colonography (combo) [facility] 00:00:00 [code = CT Colonography [facility] (combo)] Future Scheduled 1969 Screening for malignant [facility] 00:00:00 neoplasm of colon Medical Ce nter (procedure) [code = 151545802] Future Scheduled 1969 Screening for malignant [facility] 00:00:00 neoplasm of colon Medical Ce nter (procedure) [code = 036213685] Future Scheduled 1969 Screening for malignant [facility] 00:00:00 neoplasm of colon Medical Ce nter (procedure) [code = 225292827] Future Scheduled 1969 Screening for malignant [facility] 00:00:00 neoplasm of colon Medical Ce nter (procedure) [code = 213141985] Future Scheduled 1970 Sigmoidoscopy [facility]code = [facility]] Medical Cente r Future Scheduled 1969 CT Colonography (combo) [facility] 00:00:00 [code = CT Colonography [facility] (combo)] Future Scheduled 1969 Screening for malignant [facility] 00:00:00 neoplasm of colon Medical Ce nter (procedure) [code = 696483634] Future Scheduled 1969 Screening for malignant [facility] Test 00:00:00 neoplasm of colon Medical Ce nter (procedure) [code = 089382292] Future Scheduled 1969 Screening for malignant [facility] Test 00:00:00 neoplasm of colon Medical Ce nter (procedure) [code = 288707569] Future Scheduled 1969 Screening for malignant [facility] Test 00:00:00 neoplasm of colon Medical Ce nter (procedure) [code = 444257923] Future Scheduled 1970 Sigmoidoscopy [code = [facility]oscopy] Medical Chani cadena Goal Plan of Care Note [code = 73188-6] Goal Plan of Care Note [code = 91249-5] Goal Plan of Care Note [code = 30467-0] Goal Plan of Care Note [code = 23966-1] Goal Plan of Care Note [code = 10607-4] Goal Plan of Care Note [code = 12893-6] Goal Plan of Care Note [code = 13181-0] Goal Plan of Care Note [code = 96076-0] Goal Plan of Care Note [code = 12893-6] Goal Plan of Care Note [code = 19853-0] Goal Plan of Care Note [code = 13559-4] Goal Plan of Care Note [code = 93412-7] Goal Plan of Care Note [code = 65982-2] Encounters Start End Encounter Admission Attending Care Care Encounter Source Date/Time Date/Time Type Type Clinicians Facility Department ID 2022-04-02 2022-04-02 Outpatient [facility] [id number] Rangel 10:00:27 10:00:27 [id number] F Jesse 2022-04-02 2022-04-02 Outpatient [id number] 00:00:00 00:00:00 Visit [id number] 2022-02-16 2022-02-22 [facility] Ara Chang [facility] [id number] 08[facility]59[facility]00 13:33:00 [facility] 2022-02-22 [facility] Ara Chang [facility] [id number] 08[facility]59[facility]00 13:33:00 [facility] 2022-02-16 2022-02-22 Inpatient ER [facility] [id number] [facility] 08:59:00 13:33:00 , [facility] 2022-02-17 2022-02-17 Outpatient [place] [place] [id number] [facility] 00:00:00 23:59:00 Ismael Medicin e 2022-02-17 2022-02-17 Orders [facility] [id number] 00:00:00 00:00:00 [facility] 2022-02-17 2022-02-17 Orders [facility] [id number] 00:00:00 00:00:00 [facility] 2022-02-16 2022-02-16 Telephone [facility] [id number] [id number] [facility] 00[facility] [facility] 2022-02-16 2022-02-16 Telephone [facility] [id number] [facility] 00[facility]00 [facility] Results Test Description Test Time Test Comments Results Result Comments Source POC-Glucose meter 2022-02-22 10:51:30 Test Item Value Reference Range Interpretation Comme nts POC-Glucose Meter (test code = 114 mg/dL 70-110 H : TESTED AT [facility] 67[address] [facility] 1538) [facility], [facility] 30: Hand Trucker/Techni lorna ID = [id number] for DAGMAR Kennedy Lab Interpretation (test code = Abnormal 32037-0) [facility] [id number] 10:51:30 Test Item Value Reference Range Interpretation Comments POC-Glucose Meter (test 114 mg/dL 70-110 H : TE STED AT [facility] code = 1538) 6720 [facility], 770 30: Hand Trucker/Techni lorna ID = [id number] for STEPHEN DuttonDAGMAR garcia Lab Interpretation (test Abnormal code = 63120-3) [facility] [id number] 10:51:30 Test Item Value Reference Range Interpretation Comments POC-Glucose Meter (test 114 mg/dL 70-110 H : TE STED AT [facility] code = 1538) 6720 [facility], 770 30: Hand Trucker/Techni lorna ID = [id number] for STEPHEN CullenBRANDTRIA Lab Interpretation (test Abnormal code = 12186-0) [facility]SE [id number] 10:51:30 Test Item Value Reference Range Interpretation Comments POC-GLUCOSE METER 114 mg/dL 70-110 H : TESTED A T [facility] 6720 (BEAKER) (test code [facility], = 1538) 92245: Hand Trucker/Techni lorna ID = [id number] for LYNNRakesh Lovely BRANDT Cullen DOUGLAS POCT-GLUCOSE [id number] 08:00:51 Test Item Value Reference Range Interpretation Comments POC-GLUCOSE METER 108 mg/dL 70-110 : TESTED A T [facility] 6720 (BEAKER) (test code [facility], = 1538) [address]606: Hand Trucker/Techni lorna ID = [id number] for TYE SwannBRANDT Tafoya DOUGLAS BASIC METABOLIC [id number] 04:58:14 Test Item Value Reference Range Interpretation Comments SODIUM (BEAKER) 138 meq/L 136-145 (test code = 381) POTASSIUM 4.2 meq/L 3.5-5.1 (BEAKER) (test code = 379) CHLORIDE (BEAKER) 108 meq/L 98-107 H (test code = 382) CO2 (BEAKER) 25 meq/L 22-29 (test code = 355) BLOOD UREA 13 mg/dL 7-21 NITROGEN (BEAKER) (test code = 354) CREATININE 1.50 mg/dL 0.57-1.25 H (BEAKER) (test code = 358) GLUCOSE RANDOM 112 mg/dL 70-105 H (BEAKER) (test code = 652) CALCIUM (BEAKER) 8.2 mg/dL 8.4-10.2 L (test code = 697) EGFR (BEAKER) 41 Interpretatio n of eGFR (test code = mL/min/1.73 values Stage De scription 1092) sq m Result G1 Leslie l or high >=90 G2 Mildly decreased 60-89 G3a Mildl y to moderately 45-5 9 G3b Moderately to s everely 30-44 G4 Severl y decreased 15-29 G5 Kidney failure <15Reported eGF R is based on the CKD-EPI 2020 equation that d oes not use a race coefficientEsti mated GFR is not as accur ate as Creatinine Adriana cj in predicting glom erular filtration rate . Estimated GFR is not appl icable for dialysis patien ts Hand Trucker ID - PIAYA LPOCT-GLUCOSE [id number] 23:40:04 Test Item Value Reference Range Interpretation Comments POC-GLUCOSE METER 122 mg/dL 70-110 H : TESTED A T [facility] 6720 (BEDigiPath) (test code = [facility], 153) 165[address]: Hand Trucker/Techni lorna ID = [id number] for BRAD FAN POCT-GLUCOSE [id number] 16:33:39 Test Item Value Reference Range Interpretation Comments POC-GLUCOSE METER 85 mg/dL 70-110 : TESTED A T [facility] 6720 (BEAKER) (test code = [facility], 1538) [address]: Hand Trucker/Techni lorna ID = [id number] for LYNNRakesh S -BRANDT Tafoya DOUGLAS BLOOD [id number] 16:00:53 Test Item Value Reference Range Interpretation Comments CULTURE (BEAKER) (test No growth in 5 days code = 1095) BLOOD [id number] 15:00:51 Test Item Value Reference Range Interpretation Comments CULTURE (BEAKER) (test No growth in 5 days code = 1095) POCT-GLUCOSE [id number] 11:40:47 Test Item Value Reference Range Interpretation Comments POC-GLUCOSE METER 235 mg/dL 70-110 H : TESTED A T [facility] 6720 (BEAKER) (test code [facility], = 1538) [address]4442: Hand Trucker/Techni lorna ID = [id number] for LYNNI S -Michelet, LATAND DOUGLAS POCT-GLUCOSE [id number] 07:50:40 Test Item Value Reference Range Interpretation Comments POC-GLUCOSE METER 211 mg/dL 70-110 H : TESTED A T [facility] 6720 (BEAKER) (test code [facility], = 1538) [address]70: Hand Trucker/Techni lorna ID = [id number] for BRANDT Rodriguez DOUGLAS BASIC METABOLIC [id number] 05:05:15 Test Item Value Reference Range Interpretation Comments SODIUM (BEAKER) 140 meq/L 136-145 (test code = 381) POTASSIUM 3.3 meq/L 3.5-5.1 L (BEAKER) (test code = 379) CHLORIDE (BEAKER) 107 meq/L 98-107 (test code = 382) CO2 (BEAKER) 30 meq/L 22-29 H (test code = 355) BLOOD UREA 17 mg/dL 7-21 NITROGEN (BEAKER) (test code = 354) CREATININE 1.57 mg/dL 0.57-1.25 H (BEAKER) (test code = 358) GLUCOSE RANDOM 131 mg/dL 70-105 H (BEAKER) (test code = 652) CALCIUM (BEAKER) 7.9 mg/dL 8.4-10.2 L (test code = 697) EGFR (BEAKER) 39 Interpretatio n of eGFR (test code = mL/min/1.73 values Stage De scription 1092) sq m Result G1 Leslie l or high >=90 G2 Mildly decreased 60-89 G3a Mildl y to moderately 45-5 9 G3b Moderately to s everely 30-44 G4 Severl y decreased 15-29 G5 Kidne y failure <15Reported eGF R is based on the CKD-EPI 2021 equation that d oes not use a race coefficientEsti mated GFR is not as accur ate as Creatinine Adriana corona in predicting glom erular filtration rate . Estimated GFR is not appl icable for dialysis patien ts Hand Trucker ID - ALONZO WPOCT-GLUCOSE [id number] 00:28:41 Test Item Value Reference Range Interpretation Comments POC-GLUCOSE METER 344 mg/dL 70-110 H : TESTED A T [facility] 6720 (BEAKER) (test code = PRIETO Cadena [facility], 1538) [address]: Hand Trucker/Techni lorna ID = [id number] for Elva Tsang MR, SPINE, CERVICAL, [id number] 21:04:00Unlisted Reason for Exam - Click Yes and Enter Reason Below->YesUnlisted Reason for Exam->questionable C3 marrow lesion, eval for causes [facility] 1970 Sex: FFINAL REPORT MR, SPINE, CERVICAL, WITH \\T\\ WITHOUT CONTRAST INDICATION: Unlisted Reason for Examquestionable C3 marrow lesion, eval for causes TECHNIQUE: Multiplanar, multisequence MR imagingof the cervical spine was performed with and without intravenous contrast. COMPARISON: None. FINDINGS :There is slight marrow T2 hyperintensity and enhancement involving the anterior and inferior aspectof C4 and the superior margin of C5. There is associated diminished T1 signal within the anterior aspect of C4 with ventral osteophyte. Remainder of cervical vertebrae maintain normal height and marrowsignal. Intervertebral disc spaces are preserved. No pathologic intradiscal enhancement. C4-5 small disc osteophyte complex with uncovertebral spurring, mild central spinal canal stenosis and moderate to severe bilateral neural foraminal stenosis. C5-6 disc osteophyte complex, mild central spinal canal stenosis and patent neural foramina. C3-4 small disc osteophyte complex without significant centralspinal canal or neural foraminal stenosis. Remaining levels without significant central spinal canalor neural foraminal stenosis. No prevertebral soft tissue swelling. Cord signal within normal limits. Mild ventral cord flattening of the cord at C4-5, otherwise normal caliber. No pathologic intramedullary enhancement. Multinodular thyroid including right lobe 1.1 cm nodule which does not meet criteria for further imaging recommendation. Cervical soft tissues are unremarkable. IMPRESSION: C4 and C5 mild marrow T2 hyperintensity and enhancement likely degenerative in origin. Findings associated withdisc osteophyte complex, mild central spinal canal and moderate to severe bilateral neural foraminalstenosis. If there is history of primary malignancy, surveillance imaging within one-month recommended. Signed: Terrell Boyd Verified Date/Time: 02/20/2022 21:04:09 RAD, CHEST, 1 VIEW, NON DEPT 2022-02-20 16:24:00CXR on 02/16 revealed: There is a linear radiodensity projecting over the LEFT lower chest that is most likely external to the patient but correlation with any recent invasive procedures is suggested.Reason for exam:->FB chestReason for exam:->ORDER FILLER to r/o FB. Please see CXR 02/16Should this be performed at the bedside?->Yes [facility] 1970 Sex: FFINAL REPORT Chest, one view. HISTORY: FB chestCSR to r/o FB. Please see CXR 02/16 COMPARISON: Radiograph from 02/16/2022 IMPRESSION: The previously seen linear opacity of the left chest is nolonger present. Interval removal of the NG tube. The lungs are clear. No pleural effusion or pneumothorax. The cardiac silhouette is unchanged in size. No acute bone abnormality. Cholecystectomy clips over the right upper quadrant. Signed: Pauly Gay Verified Date/Time: 02/20/2022 16:24:33 POCT-GLUCOSE [id number] 13:02:48 Test Item Value Reference Range Interpretation Comments POC-GLUCOSE METER 200 mg/dL 70-110 H : TESTED Sharon T [facility]20 (BEAKER) (test code [facility], = 1538) [address]: Hand Trucker/Techni lorna ID = [id number] for BRANDT Rodriguez [id number] 07:26:31 Test Item Value Reference Range Interpretation Comments MAGNESIUM (BEAKER) (test code = 1.9 mg/dL 1.6-2.6 627) Hand Trucker ID - [id number] 07:26:31 Test Item Value Reference Range Interpretation Comments PHOSPHORUS (BEAKER) (test code = 3.1 mg/dL 2.3-4.7 604) Hand Trucker ID - BSCOMPREHENSIVE METABOLIC [id number] 07:26:30 Test Item Value Reference Range Interpretation Comments TOTAL PROTEIN 5.7 gm/dL 6.0-8.3 L (BEAKER) (test code = 770) ALBUMIN (BEAKER) 2.3 g/dL 3.5-5.0 L (test code = 1145) ALKALINE 80 U/L 40-150 PHOSPHATASE (BEAKER) (test code = 346) BILIRUBIN TOTAL 0.7 mg/dL 0.2-1.2 (BEAKER) (test code = 377) SODIUM (BEAKER) 141 meq/L 136-145 (test code = 381) POTASSIUM (BEAKER) 3.7 meq/L 3.5-5.1 (test code = 379) CHLORIDE (BEAKER) 107 meq/L 98-107 (test code = 382) CO2 (BEAKER) (test 28 meq/L 22-29 code = 355) BLOOD UREA 19 mg/dL 7-21 NITROGEN (BEAKER) (test code = 354) CREATININE 1.82 mg/dL 0.57-1.25 H (BEAKER) (test code = 358) GLUCOSE RANDOM 138 mg/dL 70-105 H (BEAKER) (test code = 652) CALCIUM (BEAKER) 8.3 mg/dL 8.4-10.2 L (test code = 697) AST (SGOT) 14 U/L 5-34 (BEAKER) (test code = 353) ALT (SGPT) 12 U/L 6-55 (BEAKER) (test code = 347) EGFR (BEAKER) 33 Interpretatio n of eGFR (test code = 1092) mL/min/1.[address] age Description sq m Result G1 Leslie l or high >=90 G2 Mildly decreased 60-89 G3a Mildl y to moderately 45-5 9 G3b Moderately to s everely 30-44 G4 Severl y decreased 15-29 G5 Kidney failure <15Reported eGF R is based on the CKD-EPI 2020 equation that d oes not use a race coefficientEsti mated GFR is not as accur ate as Creatinine Adriana cj in predicting glom erular filtration rate . Estimated GFR is not appl icable for dialysis patien ts Hand Trucker ID - BSCBC W/PLT COUNT & AUTO [id number] 06:55:28 Test Item Value Reference Range Interpretation Comments WHITE BLOOD CELL COUNT (BEAKER) 6.4 K/ L 3.5-10.5 (test code = 775) RED BLOOD CELL COUNT (BEAKER) 3.85 M/ L 3.93-5.22 L (test code = 761) HEMOGLOBIN (BEAKER) (test code = 11.3 GM/DL 11.2-15.7 410) HEMATOCRIT (BEAKER) (test code = 35.0 % 34.1-44.9 411) MEAN CORPUSCULAR VOLUME (BEAKER) 90.9 fL 79.4-94.8 (test code = 753) MEAN CORPUSCULAR HEMOGLOBIN 29.4 pg 25.6-32.2 (BEAKER) (test code = 751) MEAN CORPUSCULAR HEMOGLOBIN CONC 32.3 GM/DL 32.2-35.5 (BEAKER) (test code = 752) RED CELL DISTRIBUTION WIDTH 12.7 % 11.7-14.4 (BEAKER) (test code = 412) PLATELET COUNT (BEAKER) (test 193 K/CU MM 150-450 code = 756) MEAN PLATELET VOLUME (BEAKER) 11.2 fL 9.4-12.3 (test code = 754) NUCLEATED RED BLOOD CELLS 0 /100 WBC 0-0 (BEAKER) (test code = 413) NEUTROPHILS RELATIVE PERCENT 43 % (BEAKER) (test code = 429) LYMPHOCYTES RELATIVE PERCENT 44 % (BEAKER) (test code = 430) MONOCYTES RELATIVE PERCENT 7 % (BEAKER) (test code = 431) EOSINOPHILS RELATIVE PERCENT 6 % (BEAKER) (test code = 432) BASOPHILS RELATIVE PERCENT 0 % (BEAKER) (test code = 437) NEUTROPHILS ABSOLUTE COUNT 2.71 K/ L 1.56-6.13 (BEAKER) (test code = 670) LYMPHOCYTES ABSOLUTE COUNT 2.81 K/ L 1.18-3.74 (BEAKER) (test code = 414) MONOCYTES ABSOLUTE COUNT (BEAKER) 0.44 K/ L 0.24-0.36 H (test code = 415) EOSINOPHILS ABSOLUTE COUNT 0.37 K/ L 0.04-0.36 H (BEAKER) (test code = 416) BASOPHILS ABSOLUTE COUNT (BEAKER) 0.02 K/ L 0.01-0.08 (test code = 417) IMMATURE GRANULOCYTES-RELATIVE 1 % 0-1 PERCENT (BEAKER) (test code = 2801) POCT-GLUCOSE [id number] 18:22:38 Test Item Value Reference Range Interpretation Comments POC-GLUCOSE METER 159 mg/dL 70-110 H : TESTED A T [facility] 6720 (BEAKER) (test code = [facility], 1538) 10782: Hand Trucker/Techni lorna ID = [id number] for ALLEN WU POCT-GLUCOSE [id number] 16:27:46 Test Item Value Reference Range Interpretation Comments POC-GLUCOSE METER 165 mg/dL 70-110 H : TESTED A T [facility] 6720 (BEAKER) (test code [facility], = 1538) 96383: Hand Trucker/Techni lorna ID = [id number] for Dianna sage (contract)Cori VITAMIN D, 54-[id number] 14:54:47 Test Item Value Reference Range Interpretation Comments VITAMIN D 25-OH (BEAKER) (test code 8.3 ng/mL 6.6-49.9 = 2764) Effective 03/06/2017: Reference Range ChangeNew: 6.6-49.9 ng/mL Previous: 13.0- 47.8 ng/mLRecommendedVitamin D Target Range: 30.0-40.0 ng/mLOperator ID - CONNIE DPOCT-GLUCOSE [id number] 12:56:46 Test Item Value Reference Range Interpretation Comments POC-GLUCOSE METER 199 mg/dL 70-110 H : TESTED A T [facility] 6720 (BEAKER) (test code [facility], = 1538) 39316: Hand Trucker/Techni lorna ID = [id number] for Dianna sage (contract), Cori nubia POCT-GLUCOSE [id number] 08:25:06 Test Item Value Reference Range Interpretation Comments POC-GLUCOSE METER 109 mg/dL 70-110 : TESTED A T [facility] 6720 (BEAKER) (test code [facility], = 1538) 44906: Hand Trucker/Techni lorna ID = [id number] for Dianna sage (contract), Cori nubia PTH, [id number] 03:05:59 Test Item Value Reference Range Interpretation Comments PARATHYROID HORMONE INTACT 176.0 pg/mL 8.5-72.5 H (BEAKER) (test code = 577) Hand Trucker ID - LENY [id number] 03:01:19 Test Item Value Reference Range Interpretation Comments MAGNESIUM (BEAKER) (test code = 2.0 mg/dL 1.6-2.6 627) Hand Trucker ID - LENY [id number] 03:01:19 Test Item Value Reference Range Interpretation Comments PHOSPHORUS (BEAKER) (test code = 3.3 mg/dL 2.3-4.7 604) Hand Trucker ID - LENY LCOMPREHENSIVE METABOLIC [id number] 03:01:18 Test Item Value Reference Range Interpretation Comments TOTAL PROTEIN 5.1 gm/dL 6.0-8.3 L (BEAKER) (test code = 770) ALBUMIN (BEAKER) 2.1 g/dL 3.5-5.0 L (test code = 1145) ALKALINE 77 U/L 40-150 PHOSPHATASE (BEAKER) (test code = 346) BILIRUBIN TOTAL 0.5 mg/dL 0.2-1.2 (BEAKER) (test code = 377) SODIUM (BEAKER) 141 meq/L 136-145 (test code = 381) POTASSIUM (BEAKER) 3.4 meq/L 3.5-5.1 L (test code = 379) CHLORIDE (BEAKER) 108 meq/L 98-107 H (test code = 382) CO2 (BEAKER) (test 25 meq/L 22-29 code = 355) BLOOD UREA 24 mg/dL 7-21 H NITROGEN (BEAKER) (test code = 354) CREATININE 1.80 mg/dL 0.57-1.25 H (BEAKER) (test code = 358) GLUCOSE RANDOM 109 mg/dL 70-105 H (BEAKER) (test code = 652) CALCIUM (BEAKER) 8.0 mg/dL 8.4-10.2 L (test code = 697) AST (SGOT) 13 U/L 5-34 (BEAKER) (test code = 353) ALT (SGPT) 12 U/L 6-55 (BEAKER) (test code = 347) EGFR (BEAKER) 33 Interpretatio n of eGFR (test code = 1092) mL/min/1.[address] age Description sq m Result G1 Leslie l or high >=90 G2 Mildly decreased 60-89 G3a Mildl y to moderately 45-5 9 G3b Moderately to s everely 30-44 G4 Severl y decreased 15-29 G5 Kidney failure <15Reported eGF R is based on the CKD-EPI 202 equation that d oes not use a race coefficientEsti mated GFR is not as accur ate as Creatinine Adriana corona in predicting glom erular filtration rate . Estimated GFR is not appl icable for dialysis patien ts Hand Trucker ID - PIAYA LCBC W/PLT COUNT & AUTO [id number] 02:49:55 Test Item Value Reference Range Interpretation Comments WHITE BLOOD CELL COUNT (BEAKER) 8.4 K/ L 3.5-10.5 (test code = 775) RED BLOOD CELL COUNT (BEAKER) 3.64 M/ L 3.93-5.22 L (test code = 761) HEMOGLOBIN (BEAKER) (test code = 10.4 GM/DL 11.2-15.7 L 410) HEMATOCRIT (BEAKER) (test code = 32.9 % 34.1-44.9 L 411) MEAN CORPUSCULAR VOLUME (BEAKER) 90.4 fL 79.4-94.8 (test code = 753) MEAN CORPUSCULAR HEMOGLOBIN 28.6 pg 25.6-32.2 (BEAKER) (test code = 751) MEAN CORPUSCULAR HEMOGLOBIN CONC 31.6 GM/DL 32.2-35.5 L (BEAKER) (test code = 752) RED CELL DISTRIBUTION WIDTH 12.6 % 11.7-14.4 (BEAKER) (test code = 412) PLATELET COUNT (BEAKER) (test 186 K/CU MM 150-450 code = 756) MEAN PLATELET VOLUME (BEAKER) 10.7 fL 9.4-12.3 (test code = 754) NUCLEATED RED BLOOD CELLS 0 /100 WBC 0-0 (BEAKER) (test code = 413) NEUTROPHILS RELATIVE PERCENT 48 % (BEAKER) (test code = 429) LYMPHOCYTES RELATIVE PERCENT 43 % (BEAKER) (test code = 430) MONOCYTES RELATIVE PERCENT 7 % (BEAKER) (test code = 431) EOSINOPHILS RELATIVE PERCENT 2 % (BEAKER) (test code = 432) BASOPHILS RELATIVE PERCENT 0 % (BEAKER) (test code = 437) NEUTROPHILS ABSOLUTE COUNT 4.05 K/ L 1.56-6.13 (BEAKER) (test code = 670) LYMPHOCYTES ABSOLUTE COUNT 3.61 K/ L 1.18-3.74 (BEAKER) (test code = 414) MONOCYTES ABSOLUTE COUNT (BEAKER) 0.60 K/ L 0.24-0.36 H (test code = 415) EOSINOPHILS ABSOLUTE COUNT 0.13 K/ L 0.04-0.36 (BEAKER) (test code = 416) BASOPHILS ABSOLUTE COUNT (BEAKER) 0.03 K/ L 0.01-0.08 (test code = 417) IMMATURE GRANULOCYTES-RELATIVE 0 % 0-1 PERCENT (BEAKER) (test code = 2801) POCT-GLUCOSE [id number] 22:13:25 Test Item Value Reference Range Interpretation Comments POC-GLUCOSE METER 126 mg/dL 70-110 H : TESTED A T [facility] 6720 (BEAKER) (test code = [facility], 1538) 38068: Hand Trucker/Techni lorna ID = [id number] for Francisco mary Sylvia POCT-GLUCOSE [id number] 17:43:00 Test Item Value Reference Range Interpretation Comments POC-GLUCOSE METER 182 mg/dL 70-110 H : TESTED A T [facility] 6720 (BEAKER) (test code = [facility], 1538) 74265: Hand Trucker/Techni lorna ID = [id number] for Ok [place], [place] POCT-GLUCOSE [id number] 13:13:29 Test Item Value Reference Range Interpretation Comments POC-GLUCOSE METER 129 mg/dL 70-110 H : TESTED A T [facility] ([employer]) (test code = PRIETO Cadena [facility], 1538) 10183: Hand Trucker/Techni lorna ID = [id number] for Ok o[place]afor, [place] 2D Echo W/Doppler(CW/PW/Color)2022-02-18 12:43:42[facility]CW/PW/Color[facility]2022-02-18 12:43:42Ejection [facility]ractionSLEH [facility]Doppler(CW/PW/Color) 2022-02-18 12:43:42Ejection FractionSLEH ECHO [facility]ARTLAB [facility] [id number] 12:11:08 Test Item Value Reference Range Interpretation Comments Result (test code = 6463-4) No MRSA isolated [facility] [id number] 12:11:08 Test Item Value Reference Range Interpretation Comments Result (test code = 6463-4) No MRSA isolated [facility] [id number] 12:11:08 Test Item Value Reference Range Interpretation Comments Result (test code = 6463-4) No MRSA isolated [facility] [id number] 12:11:08 Test Item Value Reference Range Interpretation Comments CULTURE (AKER) (test code No MRSA isolated = 1095) POCT-GLUCOSE [id number] 09:36:58 Test Item Value Reference Range Interpretation Comments POC-GLUCOSE METER 148 mg/dL 70-110 H : TESTED A T [facility] 6720 (BEAKER) (test code = PRIETO Cadena [facility], 1538) [address]: Hand Trucker/Techni lorna ID = [id number] for Ok o[place], [place] U/S, RENAL, [id number] 09:06:00Reason for exam:->[facility] : 1970 Sex: FFINAL REPORT Renal ultrasound dated 02/18/2022 Comment: Real-time transabdominal renal ultrasound was performed.Right kidney measures 9.2 x 4.5 x 5.0 cm. Left kidney measures 9.3 x 4.8 4.4 cm.Right renal cortex measures 0.8 cm. Left renal cortex measures 1.2 cm. Echogenicity of both renal parenchyma is increased. No hydronephrosis, solid or cystic mass seen. The urinary bladder is contracted. Doppler ultrasound demonstrates patent main renal artery and vein bilaterally. Impression: Echogenic kidneys suggestive of renal parenchymal disease. Signed: Christo Brunnereport Verified Date/Time: 02/18/2022 09:06:30 Reading Location: [address] Body Reading Room POCT-GLUCOSE [id number] 05:45:20 Test Item Value Reference Range Interpretation Comments POC-GLUCOSE METER 124 mg/dL 70-110 H : TESTED A T [facility] 6720 (BEAKER) (test code = PRIETO WEBBER [place], 1538) [address]117: Hand Trucker/Techni lorna ID = [id number] for Lisa Aj COMPREHENSIVE METABOLIC [id number] 05:39:23 Test Item Value Reference Range Interpretation Comments TOTAL PROTEIN 5.8 gm/dL 6.0-8.3 L (BEAKER) (test code = 770) ALBUMIN (BEAKER) 2.4 g/dL 3.5-5.0 L (test code = 1145) ALKALINE 83 U/L 40-150 PHOSPHATASE (BEAKER) (test code = 346) BILIRUBIN TOTAL 0.4 mg/dL 0.2-1.2 (BEAKER) (test code = 377) SODIUM (BEAKER) 142 meq/L 136-145 (test code = 381) POTASSIUM (BEAKER) 4.0 meq/L 3.5-5.1 (test code = 379) CHLORIDE (BEAKER) 109 meq/L 98-107 H (test code = 382) CO2 (BEAKER) (test 25 meq/L 22-29 code = 355) BLOOD UREA 26 mg/dL 7-21 H NITROGEN (BEAKER) (test code = 354) CREATININE 1.99 mg/dL 0.57-1.25 H (BEAKER) (test code = 358) GLUCOSE RANDOM 144 mg/dL 70-105 H (BEAKER) (test code = 652) CALCIUM (BEAKER) 8.7 mg/dL 8.4-10.2 (test code = 697) AST (SGOT) 21 U/L 5-34 (BEAKER) (test code = 353) ALT (SGPT) 17 U/L 6-55 (BEAKER) (test code = 347) EGFR (BEAKER) 30 Interpretatio n of eGFR (test code = 1092) mL/min/1.[address] age Description sq m Result G1 Leslie l or high >=90 G2 Mildly decreased 60-89 G3a Mildl y to moderately 45-5 9 G3b Moderately to s everely 30-44 G4 Severl y decreased 15-29 G5 Kidney failure <15Reported eGF R is based on the CKD-EPI 2020 equation that d oes not use a race coefficientEsti mated GFR is not as accur ate as Creatinine Adriana cj in predicting glom erular filtration rate . Estimated GFR is not appl icable for dialysis patien ts Hand Trucker ID - LENY [id number] 04:49:24 Test Item Value Reference Range Interpretation Comments MAGNESIUM (BEAKER) (test code = 2.0 mg/dL 1.6-2.6 627) Hand Trucker ID - LENY [id number] 04:49:24 Test Item Value Reference Range Interpretation Comments PHOSPHORUS (BEAKER) (test code = 3.1 mg/dL 2.3-4.7 604) Hand Trucker ID - LENY LCBC W/PLT COUNT & AUTO [id number] 04:26:28 Test Item Value Reference Range Interpretation Comments WHITE BLOOD CELL COUNT (BEAKER) 12.6 K/ L 3.5-10.5 H (test code = 775) RED BLOOD CELL COUNT (BEAKER) 4.05 M/ L 3.93-5.22 (test code = 761) HEMOGLOBIN (BEAKER) (test code = 11.7 GM/DL 11.2-15.7 410) HEMATOCRIT (BEAKER) (test code = 35.9 % 34.1-44.9 411) MEAN CORPUSCULAR VOLUME (BEAKER) 88.6 fL 79.4-94.8 (test code = 753) MEAN CORPUSCULAR HEMOGLOBIN 28.9 pg 25.6-32.2 (BEAKER) (test code = 751) MEAN CORPUSCULAR HEMOGLOBIN CONC 32.6 GM/DL 32.2-35.5 (BEAKER) (test code = 752) RED CELL DISTRIBUTION WIDTH 12.6 % 11.7-14.4 (BEAKER) (test code = 412) PLATELET COUNT (BEAKER) (test 214 K/CU MM 150-450 code = 756) MEAN PLATELET VOLUME (BEAKER) 11.5 fL 9.4-12.3 (test code = 754) NUCLEATED RED BLOOD CELLS 0 /100 WBC 0-0 (BEAKER) (test code = 413) NEUTROPHILS RELATIVE PERCENT 62 % (BEAKER) (test code = 429) LYMPHOCYTES RELATIVE PERCENT 31 % (BEAKER) (test code = 430) MONOCYTES RELATIVE PERCENT 7 % (BEAKER) (test code = 431) EOSINOPHILS RELATIVE PERCENT 0 % (BEAKER) (test code = 432) BASOPHILS RELATIVE PERCENT 0 % (BEAKER) (test code = 437) NEUTROPHILS ABSOLUTE COUNT 7.78 K/ L 1.56-6.13 H (BEAKER) (test code = 670) LYMPHOCYTES ABSOLUTE COUNT 3.85 K/ L 1.18-3.74 H (BEAKER) (test code = 414) MONOCYTES ABSOLUTE COUNT (BEAKER) 0.82 K/ L 0.24-0.36 H (test code = 415) EOSINOPHILS ABSOLUTE COUNT 0.04 K/ L 0.04-0.36 (BEAKER) (test code = 416) BASOPHILS ABSOLUTE COUNT (BEAKER) 0.03 K/ L 0.01-0.08 (test code = 417) IMMATURE GRANULOCYTES-RELATIVE 1 % 0-1 PERCENT (AKER) (test code = 2801) POCT-GLUCOSE [id number] 23:04:45 Test Item Value Reference Range Interpretation Comments POC-GLUCOSE METER 165 mg/dL 70-110 H : TESTED A T [facility] ([facility]) (test code = [facility] Surinder [facility], 1538) 71874: Hand Trucker/Techni lorna ID = [id number] for Christopher Wolff T4, [id number] 18:45:38 Test Item Value Reference Range Interpretation Comments FREE T4 ([facility]) (test code = 655) 1.07 ng/dL 0.70-1.48 Hand Trucker ID - LINDEN MPOCT-GLUCOSE [id number] 18:38:50 Test Item Value Reference Range Interpretation Comments POC-GLUCOSE METER 177 mg/dL 70-110 H : [facility] (test code = [facility] Surinder [facility], 1538) 26110: Hand Trucker/Techni lorna ID = [id number] for Ok oroafor, [place] MR, BRAIN, WITHOUT [id number] 18:25:00Hypertensive urgency, r/o PRES Also febrile, r/o meningitis/encephalitis Unlisted Reason for Exam - Click Yes and Enter Reason Below->No Does the patient have an implanted electronic device?[facility] : 1970 Sex: FFINAL REPORT MR, BRAIN, WITHOUT CONTRAST INDICATION: Meningitis/[employer] infection suspected TECHNIQUE: Multiplanar, multisequence MR imaging of the brain was obtained. COMPARISON: None FINDINGS:Brain parenchyma is normal in morphology. Midline structures are normally developed. No restricted diffusion to suggest recent ischemic insult. No abnormal susceptibility. Scattered T2/FLAIR hyperintensefoci within the periventricular and subcortical white matter are nonspecific, however, statisticallyrepresent chronic microvascular ischemic changes. No hydrocephalus. Orbits are within normal limits.No obstructive paranasal sinus disease. IMPRESSION: No acute intracranial findings . Of note, meningitis may be occult by imaging and correlation with CSF results is desired if there is persistent clinical concern. 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 Correlation for primary malignancy is suggested. Signed: Elizaebth Byrnes MDReport Verified Date/Time: 02/17/2022 18:25:45 TSH/FREE T4 IF [id number] 18:06:03 Test Item Value Reference Range Interpretation Comments THYROID STIMULATING HORMONE 0.234 uIU/mL 0.350-4.940 L (BEAKER) (test code = 772) Hand Trucker ID - LINDEN MPOCT-GLUCOSE [id number] 16:40:45 Test Item Value Reference Range Interpretation Comments POC-GLUCOSE METER 160 mg/dL 70-110 H : TESTED A T [facility] 6720 (BEAKER) (test code [facility], = 1538) 08295: Hand Trucker/Techni lorna ID = [id number] for Awur uomje (contract), Nne ka POCT-GLUCOSE [id number] 15:26:11 Test Item Value Reference Range Interpretation Comments POC-GLUCOSE METER 76 mg/dL 70-110 : TESTED A T [facility] 6720 (BEAKER) (test code = [facility], 1538) 01234: Hand Trucker/Techni lorna ID = [id number] for Peng rodriguez Connor POCT-GLUCOSE [id number] 14:21:45 Test Item Value Reference Range Interpretation Comments POC-GLUCOSE METER 108 mg/dL 70-110 : TESTED A T [facility] 6720 (BEAKER) (test code [facility], = 1538) 59956: Hand Trucker/Techni lorna ID = [id number] for Awur uomje (contract), Nne ka POCT-GLUCOSE [id number] 13:29:26 Test Item Value Reference Range Interpretation Comments POC-GLUCOSE METER 73 mg/dL 70-110 : TESTED A T [facility] 6720 (BEAKER) (test code = [facility] [place], 1538) 398[address]: Hand Trucker/Techni lorna ID = [id number] for Tori reyes (contract), [facility] BASIC METABOLIC [id number] 13:27:42 Test Item Value Reference Range Interpretation Comments SODIUM (BEAKER) 146 meq/L 136-145 H (test code = 381) POTASSIUM 3.6 meq/L 3.5-5.1 (BEAKER) (test code = 379) CHLORIDE (BEAKER) 110 meq/L 98-107 H (test code = 382) CO2 (BEAKER) 29 meq/L 22-29 (test code = 355) BLOOD UREA 29 mg/dL 7-21 H NITROGEN (BEAKER) (test code = 354) CREATININE 2.23 mg/dL 0.57-1.25 H (BEAKER) (test code = 358) GLUCOSE RANDOM 107 mg/dL 70-105 H (BEAKER) (test code = 652) CALCIUM (BEAKER) 9.2 mg/dL 8.4-10.2 (test code = 697) EGFR (BEAKER) 26 Interpretatio n of eGFR (test code = mL/min/1.73 values Stage De scription 1092) sq m Result G1 Leslie l or high >=90 G2 Mildly decreased 60-89 G3a Mildl y to moderately 45-5 9 G3b Moderately to s everely 30-44 G4 Severl y decreased 15-29 G5 Kidney failure <15Reported eGF R is based on the CKD-EPI 2020 equation that d oes not use a race coefficientEsti mated GFR is not as accur ate as Creatinine Adriana corona in predicting glom erular filtration rate . Estimated GFR is not appl icable for dialysis patien ts Hand Trucker ID - LINDEN [id number] 12:16:33 Test Item Value Reference Range Interpretation Comments MAGNESIUM (BEAKER) (test code = 1.8 mg/dL 1.6-2.6 627) Hand Trucker ID - LINDEN [id number] 12:16:33 Test Item Value Reference Range Interpretation Comments PHOSPHORUS (BEAKER) (test code = 2.2 mg/dL 2.3-4.7 L 604) Hand Trucker ID - LINDEN MPOCT-GLUCOSE [id number] 11:47:53 Test Item Value Reference Range Interpretation Comments POC-GLUCOSE METER 108 mg/dL 70-110 : TESTED A T [facility] 6720 (BEAKER) (test code [facility], = 1538) 32619: Hand Trucker/Techni lorna ID = [id number] for Tori reyes (contract), Dinorah harrell HEMOGLOBIN [id number] 10:38:53 Test Item Value Reference Range Interpretation Comments HEMOGLOBIN A1C 10.9 % See_Comment H [Automated m essage] ELECTROPHORESIS (BEAKER) The system which (test code = 3811) generated this result transmitted ref erence range: <=5.6%. The reference range was not used to int erpret this result as normal/abnormal . "The A1c is measured using a NGSP-certified method. HbA1c value equal to or greater than 6.5% as thediagnosis cutoff for diabetes. An HbA1c value of 5.7- 6.4% indicates increased risk for diabetes (prediabetes)."Hand Trucker ID - ADMPOCT- GLUCOSE [id number] 10:16:09 Test Item Value Reference Range Interpretation Comments POC-GLUCOSE METER 160 mg/dL 70-110 H : TESTED A T [facility] 6720 (BEAKER) (test code [facility], = 1538) 22017: Hand Trucker/Techni lorna ID = [id number] for Tori reyes (contract), Dinorah harrell BASIC METABOLIC [id number] 10:02:11 Test Item Value Reference Range Interpretation Comments SODIUM (BEAKER) 143 meq/L 136-145 (test code = 381) POTASSIUM 3.8 meq/L 3.5-5.1 (BEAKER) (test code = 379) CHLORIDE (BEAKER) 108 meq/L 98-107 H (test code = 382) CO2 (BEAKER) 27 meq/L 22-29 (test code = 355) BLOOD UREA 28 mg/dL 7-21 H NITROGEN (BEAKER) (test code = 354) CREATININE 2.27 mg/dL 0.57-1.25 H (BEAKER) (test code = 358) GLUCOSE RANDOM 211 mg/dL 70-105 H (BEAKER) (test code = 652) CALCIUM (BEAKER) 8.5 mg/dL 8.4-10.2 (test code = 697) EGFR (BEAKER) 25 Interpretatio n of eGFR (test code = mL/min/1.73 values Stage De scription 1092) sq m Result G1 Leslie l or high >=90 G2 Mildly decreased 60-89 G3a Mildl y to moderately 45-5 9 G3b Moderately to s everely 30-44 G4 Severl y decreased 15-29 G5 Kidney failure <15Reported eGF R is based on the CKD-EPI 2020 equation that d oes not use a race coefficientEsti mated GFR is not as accur ate as Creatinine Adriana cj in predicting glom erular filtration rate . Estimated GFR is not appl icable for dialysis patien ts Hand Trucker ID - LINDEN MPOCT-GLUCOSE [id number] 09:12:51 Test Item Value Reference Range Interpretation Comments POC-GLUCOSE METER 203 mg/dL 70-110 H : TESTED A T [facility] 6720 (BEAKER) (test code = [facility] Surinder [facility], 1538) 15834: Hand Trucker/Techni lorna ID = [id number] for Ok oroafor, [place] POCT-GLUCOSE [id number] 08:24:37 Test Item Value Reference Range Interpretation Comments POC-GLUCOSE METER 185 mg/dL 70-110 H : TESTED A T [facility] 6720 (BEAKER) (test code = [facility], 1538) 28186: Hand Trucker/Techni lorna ID = [id number] for Ok oroafor, [place] BASIC METABOLIC [id number] 06:50:10 Test Item Value Reference Range Interpretation Comments SODIUM (BEAKER) 145 meq/L 136-145 (test code = 381) POTASSIUM 3.5 meq/L 3.5-5.1 (BEAKER) (test code = 379) CHLORIDE (BEAKER) 110 meq/L 98-107 H (test code = 382) CO2 (BEAKER) 30 meq/L 22-29 H (test code = 355) BLOOD UREA 28 mg/dL 7-21 H NITROGEN (BEAKER) (test code = 354) CREATININE 2.29 mg/dL 0.57-1.25 H (BEAKER) (test code = 358) GLUCOSE RANDOM 149 mg/dL 70-105 H (BEAKER) (test code = 652) CALCIUM (BEAKER) 8.4 mg/dL 8.4-10.2 (test code = 697) EGFR (BEAKER) 25 Interpretatio n of eGFR (test code = mL/min/1.73 values Stage D escription 1092) sq m Result G1 Leslie l or high >=90 G2 Mildly decreased 60-89 G3a Mildl y to moderately 45-5 9 G3b Moderately to s everely 30-44 G4 Severl y decreased 15-29 G5 Kidney failure <15Reported eGF R is based on the CKD-EPI 2020 equation that d oes not use a race coefficientEsti mated GFR is not as accur ate as Creatinine Adriana cj in predicting glom erular filtration rate . Estimated GFR is not appl icable for dialysis patien ts Hand Trucker ID - LINDEN MPOCT-GLUCOSE [id number] 05:33:55 Test Item Value Reference Range Interpretation Comments POC-GLUCOSE METER 166 mg/dL 70-110 H : TESTED A T [facility] (BEAKER) (test code [facility], = 1538) 77180: Hand Trucker/Techni lorna ID = [id number] for SUGU AMANDAMOL CBC W/PLT COUNT & AUTO [id number] 04:40:04 Test Item Value Reference Range Interpretation Comments WHITE BLOOD CELL COUNT 12.3 K/ L 3.5-10.5 H (BEAKER) (test code = 775) RED BLOOD CELL COUNT 3.59 M/ L 3.93-5.22 L (BEAKER) (test code = 761) HEMOGLOBIN (BEAKER) 10.4 GM/DL 11.2-15.7 L (test code = 410) HEMATOCRIT (BEAKER) 31.8 % 34.1-44.9 L (test code = 411) MEAN CORPUSCULAR 88.6 fL 79.4-94.8 Discordant MCV VOLUME (BEAKER) (test result s from code = 753) previous. Clini gena correlation required. MEAN CORPUSCULAR 29.0 pg 25.6-32.2 HEMOGLOBIN (BEAKER) (test code = 751) MEAN CORPUSCULAR 32.7 GM/DL 32.2-35.5 HEMOGLOBIN CONC (BEAKER) (test code = 752) RED CELL DISTRIBUTION 12.4 % 11.7-14.4 WIDTH (BEAKER) (test code = 412) PLATELET COUNT 192 K/CU MM 150-450 (BEAKER) (test code = 756) MEAN PLATELET VOLUME 10.8 fL 9.4-12.3 (BEAKER) (test code = 754) NUCLEATED RED BLOOD 0 /100 WBC 0-0 CELLS (BEAKER) (test code = 413) NEUTROPHILS RELATIVE 85 % PERCENT (BEAKER) (test code = 429) LYMPHOCYTES RELATIVE 12 % PERCENT (BEAKER) (test code = 430) MONOCYTES RELATIVE 2 % PERCENT (BEAKER) (test code = 431) EOSINOPHILS RELATIVE 0 % PERCENT (BEAKER) (test code = 432) BASOPHILS RELATIVE 0 % PERCENT (BEAKER) (test code = 437) NEUTROPHILS ABSOLUTE 10.42 K/ L 1.56-6.13 H COUNT (BEAKER) (test code = 670) LYMPHOCYTES ABSOLUTE 1.47 K/ L 1.18-3.74 COUNT (BEAKER) (test code = 414) MONOCYTES ABSOLUTE 0.29 K/ L 0.24-0.36 COUNT (BEAKER) (test code = 415) EOSINOPHILS ABSOLUTE 0.00 K/ L 0.04-0.36 L COUNT (BEAKER) (test code = 416) BASOPHILS ABSOLUTE 0.01 K/ L 0.01-0.08 COUNT (BEAKER) (test code = 417) IMMATURE 1 % 0-1 GRANULOCYTES-RELATIVE PERCENT (BEAKER) (test code = 2801) COMPREHENSIVE METABOLIC [id number] 04:25:06 Test Item Value Reference Range Interpretation Comments TOTAL PROTEIN 4.2 gm/dL 6.0-8.3 L (BEAKER) (test code = 770) ALBUMIN (BEAKER) 1.8 g/dL 3.5-5.0 L (test code = 1145) ALKALINE 62 U/L 40-150 PHOSPHATASE (BEAKER) (test code = 346) BILIRUBIN TOTAL 0.2 mg/dL 0.2-1.2 (BEAKER) (test code = 377) SODIUM (BEAKER) 146 meq/L 136-145 H (test code = 381) POTASSIUM (BEAKER) 2.7 meq/L 3.5-5.1 L (test code = 379) CHLORIDE (BEAKER) 119 meq/L 98-107 H (test code = 382) CO2 (BEAKER) (test 21 meq/L 22-29 L code = 355) BLOOD UREA 21 mg/dL 7-21 NITROGEN (BEAKER) (test code = 354) CREATININE 1.55 mg/dL 0.57-1.25 H (BEAKER) (test code = 358) GLUCOSE RANDOM 152 mg/dL 70-105 H (BEAKER) (test code = 652) CALCIUM (BEAKER) 6.3 mg/dL 8.4-10.2 L (test code = 697) AST (SGOT) 19 U/L 5-34 (BEAKER) (test code = 353) ALT (SGPT) 11 U/L 6-55 (BEAKER) (test code = 347) EGFR (BEAKER) 40 Interpretatio n of eGFR (test code = 1092) mL/min/1.[address] age Description sq m Result G1 Leslie l or high >=90 G2 Mildly decreased 60-89 G3a Mildl y to moderately 45-5 9 G3b Moderately to s everely 30-44 G4 Severl y decreased 15-29 G5 Kidney failure <15Reported eGF R is based on the CKD-EPI 202 equation that d oes not use a race coefficientEsti mated GFR is not as accur ate as Creatinine Adriana corona in predicting glom erular filtration rate . Estimated GFR is not appl icable for dialysis patien ts Hand Trucker ID - LINDEN [id number] 04:18:46 Test Item Value Reference Range Interpretation Comments PHOSPHORUS (BEAKER) (test code = 1.8 mg/dL 2.3-4.7 L 604) Hand Trucker ID - LINDEN [id number] 04:18:45 Test Item Value Reference Range Interpretation Comments MAGNESIUM (BEAKER) (test code = 1.3 mg/dL 1.6-2.6 L 627) Hand Trucker ID - LINDEN MPOCT-GLUCOSE [id number] 03:06:33 Test Item Value Reference Range Interpretation Comments POC-GLUCOSE METER 187 mg/dL 70-110 H : TESTED A T [facility] (BEAKER) (test code = [facility] [place], 1538) 39593: Hand Trucker/Techni lorna ID = [id number] for Al i, Annemarie BASIC METABOLIC [id number] 02:20:38 Test Item Value Reference Range Interpretation Comments SODIUM (BEAKER) 142 meq/L 136-145 (test code = 381) POTASSIUM 4.2 meq/L 3.5-5.1 Specimen slight ly (BEAKER) (test hemolyzed code = 379) CHLORIDE (BEAKER) 106 meq/L 98-107 (test code = 382) CO2 (BEAKER) 27 meq/L 22-29 (test code = 355) BLOOD UREA 27 mg/dL 7-21 H NITROGEN (BEAKER) (test code = 354) CREATININE 2.36 mg/dL 0.57-1.25 H Specimen slight ly (BEAKER) (test hemolyzed code = 358) GLUCOSE RANDOM 193 mg/dL 70-105 H (BEAKER) (test code = 652) CALCIUM (BEAKER) 8.6 mg/dL 8.4-10.2 (test code = 697) EGFR (BEAKER) 24 Interpretatio n of eGFR (test code = mL/min/1.73 values Stage De scription 1092) sq m Result G1 Leslie l or high >=90 G2 Mildly decreased 60-89 G3a Mildl y to moderately 45-5 9 G3b Moderately to s everely 30-44 G4 Severl y decreased 15-29 G5 Kidney failure <15Reported eGF R is based on the CKD-EPI 2020 equation that d oes not use a race coefficientEsti mated GFR is not as accur ate as Creatinine Adriana cj in predicting glom erular filtration rate . Estimated GFR is not appl icable for dialysis patien ts Hand Trucker ID - LINDEN MPOCT-GLUCOSE [id number] 01:41:42 Test Item Value Reference Range Interpretation Comments POC-GLUCOSE METER 191 mg/dL 70-110 H : TESTED A T [facility] 6720 (BEAKER) (test code [facility], = 1538) 94394: Hand Trucker/Techni lorna ID = [id number] for SUGU , SHEENAMOL POCT-GLUCOSE [id number] 00:11:09 Test Item Value Reference Range Interpretation Comments POC-GLUCOSE METER 147 mg/dL 70-110 H : TESTED A T [facility] 6720 (BEAKER) (test code = [facility] Cadena [facility], 1538) 49496: Hand Trucker/Techni lorna ID = [id number] for Al i, Annemarie RAD, ABDOMEN/KUB, 1 VIEW [id number] 22:52:00Reason for exam:->NGT placementShould this be performed at the bedside?->Yes [facility] 1970 Sex: FFINAL REPORT Supine abdomen 02/16/2022 HISTORY: NG tube placement. IMPRESSION: NG tube in place with the tip projecting over the distal stomach or proximal duodenum. There is a linear radiodensity projecting over the lower esophagus most likely external to the patient. Signed: Elva Singh Verified Date/Time: 02/16/2022 22:52:54 Electronically signed by: ELVA SINGH MD on02/16/2022 10:52 PMPOCT-GLUCOSE [id number] 22:29:37 Test Item Value Reference Range Interpretation Comments POC-GLUCOSE METER 144 mg/dL 70-110 H : TESTED A T [facility] 6720 (BEAKER) (test code = [facility] [place], 1538) 78336: Hand Trucker/Techni lorna ID = [id number] for Al i, Annemarie RAD, CHEST, 1 VIEW, NON [id number] 22:12:00Reason for exam:->eval lung fieldsShould this be performed at the bedside?->Yes [facility] 1970 Sex: FFINAL REPORT PORTABLE AP CHEST ORDERED AT 02/16/2022 9:37 PM HISTORY: Lung barragan evaluation. COMPARISON: Chest radiograph 10 hours prior. IMPRESSION: NG tube is in place with the tip below the diaphragm. There is a linear radiodensity projecting over the LEFT lower chest that is most likely external to the patient but correlation with any recent invasive procedures is suggested. No evidenceof consolidation, effusion or pneumothorax. Signed: Elva Singh Verified Date/Time: 02/16/2022 22:12:53 Blood gas, [id number] 21:52:37 Test Item Value Reference Range Interpretation Comments pH, Arterial (test code 7.37 7.35-7.45 = 2744-1) pCO2, Arterial (test 53 See_Comment H [Autom ated message] code = 2019-8) The system [employer] generated this result transmit amina reference range : 35 - 45 mm Hg. The reference range was not used to interpret this result as normal/abnormal . pO2, Arterial (test 120 See_Comment H [Automa amina message] code = 2703-7) The system [employer] generated this result transmit amina reference range : 80 - 90 mm Hg. The reference range was not used to interpret this result as normal/abnormal . O2 Sat, Arterial (test 98.2 % 96.0-97.0 H code = 2708-6) HCO3, Arterial (test 30 mmol/L 21-29 H code = 1960-4) Base Excess, Arterial 3.9 mmol/L -2.0-3.0 H (test code = 1925-7) Patient Temperature 36.9 (test code = 8310-5) FIO2 (test code = 1819) 32 Lab Interpretation Abnormal (test code = 04187-6) [facility] [id number] 21:52:37 Test Item Value Reference Range Interpretation Comments pH, Arterial (test code 7.37 7.35-7.45 = 2744-1) pCO2, Arterial (test 53 See_Comment H [Autom ated message] code = 2019-) The system [employer] generated this result transmit amina reference range : 35 - 45 mm Hg. The reference range was not used to interpret this result as normal/abnormal . pO2, Arterial (test 120 See_Comment H [Automa amina message] code = 2703-7) The system [employer] generated this result transmit amina reference range : 80 - 90 mm Hg. The reference range was not used to interpret this result as normal/abnormal . O2 Sat, Arterial (test 98.2 % 96.0-97.0 H code = 2708-6) HCO3, Arterial (test 30 mmol/L 21-29 H code = 1960-4) Base Excess, Arterial 3.9 mmol/L -2.0-3.0 H (test code = 1925-7) Patient Temperature 36.9 (test code = 8310-5) FIO2 (test code = 1819) 32 Lab Interpretation Abnormal (test code = 91309-9) [facility] [id number] 21:52:37 Test Item Value Reference Range Interpretation Comments pH, Arterial (test code 7.37 7.35-7.45 = 2744-1) pCO2, Arterial (test 53 See_Comment H [Autom ated message] code = 2018-12) The system [employer] generated this result transmit amina reference range : 35 - 45 mm Hg. The reference range was not used to interpret this result as normal/abnormal . pO2, Arterial (test 120 See_Comment H [Automa amina message] code = 2703-7) The system [employer] generated this result transmit amina reference range : 80 - 90 mm Hg. The reference range was not used to interpret this result as normal/abnormal . O2 Sat, Arterial (test 98.2 % 96.0-97.0 H code = 2708-6) HCO3, Arterial (test 30 mmol/L 21-29 H code = 1960-4) Base Excess, Arterial 3.9 mmol/L -2.0-3.0 H (test code = 1925-7) Patient Temperature 36.9 (test code = 8310-5) FIO2 (test code = 1819) 32 Lab Interpretation Abnormal (test code = 81731-6) [facility] [id number] 21:52:37 Test Item Value Reference Range Interpretation Comments PH ARTERIAL (BEAKER) (test code = 7.37 7.35-7.45 383) PCO2 ARTERIAL (BEAKER) (test code 53 mm Hg 35-45 H = 384) PO2 ARTERIAL (BEAKER) (test code = 120 mm Hg 80-90 H 385) O2 SATURATION ARTERIAL (BEAKER) 98.2 % 96.0-97.0 H (test code = 386) HCO3 ARTERIAL (BEAKER) (test code 30 mmol/L 21-29 H = 388) BASE EXCESS ARTERIAL (BEAKER) 3.9 mmol/L -2.0-3.0 H (test code = 387) PATIENT TEMPERATURE (BEAKER) (test 36.9 code = 1818) FIO2 (BEAKER) (test code = 1819) 32.0 KETONE, [id number] 21:38:46 Test Item Value Reference Range Interpretation Comments KETONES, BLOOD (BEAKER) (test code 0.9 mmol/L <0.4 H = 1103) POCT-GLUCOSE [id number] 21:19:53 Test Item Value Reference Range Interpretation Comments POC-GLUCOSE METER 173 mg/dL 70-110 H : TESTED A T [facility] 67[address] (BEAKER) (test code = PRIETO Cadena [facility], 1538) [address]: Hand Trucker/Techni lorna ID = [id number] for Al iJoelleam SARS-CoV2/RT-PCR (Symptomatic ONLY)2022-02-16 21:03:01 Test Item Value Reference Range Interpretation Comments SARS-COV2/RT-PCR Negative Negative (test code = 26281-1) SARS-COV-[address] [facility] (test code = 44275-5) SCOOTER (test code = SCOOTER) Endogenous inhibition of PCR was detected in this sample; therefore, the results of this test were invalid. Interpret results with caution. Recommend submission of a second specimen for retesting. This SARS CoV-2 test is a rapid, real-time RT-PCR test intended for the qualitative detection of nucleic acid from SARS-CoV-2 in a nasopharyngeal swab specimen collected from individuals suspected of COVID-19 by their healthcare provider. This test has not been Food and Drug Administration (FDA) cleared or approved. This is a modified version of an approved Emergency Use Authorization (EUA) and is in the process of review by the FDA. Once authorized by the FDA, the issued EUA will be effective until the declaration that circumstances exist justifying the authorization of the emergency use of in vitro diagnostic tests for detection and/or diagnosis of COVID-19 is terminated under Section 564(b)(2) of the Act or the EUA is revoked under Section 564(g) of the Act. Fact Sheet for Healthcare Providers:https://www.[employer]/sites/default/f colt/product/documents/F act_Sheet_HC_Providers_L nxp_JSMS-FxX-6.pdf Fact Sheet for Healthcare Patients:https://www.[employer]/sites/default/fi les/product/documents/Fa ct_Sheet_Patients_Lyra_S ARS-CoV-2.pdf Performing Laboratory:[facility] [place], [place] [address] [place], [place] [address]ARS-CoV2/RT-PCR (Symptomatic ONLY)2022-02-16 21:03:01 Test Item Value Reference Range Interpretation Comments SARS-COV2/RT-PCR Negative Negative (test code = 12593-3) SARS-COV-[address] [facility] (test code = 17512-8) SCOOTER (test code = SCOOTER) Endogenous inhibition of PCR was detected in this sample; therefore, the results of this test were invalid. Interpret results with caution. Recommend submission of a second specimen for retesting. This SARS CoV-2 test is a rapid, real-time RT-PCR test intended for the qualitative detection of nucleic acid from SARS-CoV-2 in a nasopharyngeal swab specimen collected from individuals suspected of COVID-19 by their healthcare provider. This test has not been Food and Drug Administration (FDA) cleared or approved. This is a modified version of an approved Emergency Use Authorization (EUA) and is in the process of review by the FDA. Once authorized by the FDA, the issued EUA will be effective until the declaration that circumstances exist justifying the authorization of the emergency use of in vitro diagnostic tests for detection and/or diagnosis of COVID-19 is terminated under Section 564(b)(2) of the Act or the EUA is revoked under Section 564(g) of the Act. Fact Sheet for Healthcare Providers:https://www.[employer]/sites/default/f colt/product/documents/F act_Sheet_HC_Providers_L yjk_DURC-AxP-6.pdf Fact Sheet for Healthcare Patients:https://www.[employer]/sites/default/fi les/product/documents/Fa ct_Sheet_Patients_Lyra_S ARS-CoV-2.pdf Performing Laboratory:[facility] [place] [address] [facility]2022-02-16 21:03:01 Test Item Value Reference Range Interpretation Comments SARS-COV2/RT-PCR Negative Negative (test code = 97193-9) SARS-COV-[address] [facility] (test code = 33471-0) SCOOTER (test code = SCOOTER) Endogenous inhibition of PCR was detected in this sample; therefore, the results of this test were invalid. Interpret results with caution. Recommend submission of a second specimen for retesting. This SARS CoV-2 test is a rapid, real-time RT-PCR test intended for the qualitative detection of nucleic acid from SARS-CoV-2 in a nasopharyngeal swab specimen collected from individuals suspected of COVID-19 by their healthcare provider. This test has not been Food and Drug Administration (FDA) cleared or approved. This is a modified version of an approved Emergency Use Authorization (EUA) and is in the process of review by the FDA. Once authorized by the FDA, the issued EUA will be effective until the declaration that circumstances exist justifying the authorization of the emergency use of in vitro diagnostic tests for detection and/or diagnosis of COVID-19 is terminated under Section 564(b)(2) of the Act or the EUA is revoked under Section 564(g) of the Act. Fact Sheet for Healthcare Providers:https://www.[employer]/sites/default/f colt/product/documents/F act_Sheet_HC_Providers_L yzy_VTAO-UzB-7.pdf Fact Sheet for Healthcare Patients:https://www.[employer]/sites/default/fi les/product/documents/Fa ct_Sheet_Patients_Lyra_S ARS-CoV-2.pdf Performing Laboratory:[facility] [place] [address].[address]-PCR ([facility])2022-02-16 21:03:01 Test Item Value Reference Range Interpretation Comments SARS-COV2/RT-PCR (test code = Negative Negative 3967250) SARS-COV-2 PERFORMING LAB (test [facility] code = 0563843) Endogenous inhibition of PCR was detected in this sample; therefore, the results of this test were invalid. Interpret results with caution. Recommend submission of a second specimen for retesting.This SARS CoV-2 test is a rapid, real-time RT-PCR test intended for the qualitative detection of nucleic acid from SARS-CoV-2 in a nasopharyngeal swab specimen collected from individuals suspected of COVID-19 by their healthcare provider.This test has not been Food and Drug Administration (FDA) cleared or approved. This is a modified version of an approved Emergency Use Authorization (EUA) and is in the process of review by the FDA. Once authorized by the FDA, the issued EUA will be effective until the declaration that circumstances exist justifying the authorization of the emergency use of in vitro diagnostic tests for detection and/or diagnosis of COVID-19 is terminated under Section 564(b)(2) of the Act or the EUA is revoked under Section 564(g) of the Act.Fact Sheet for Healthcare Providers:https:// www.[employer]/sites/default/files/product/documents/Fact_Sheet_HC_Providers_Lyr t_HYVT-HhH-9.pdfFactSheet for Healthcare Patients:https://www.[employer]/sites/default/files/product/documents/Fact_Sheet _Mladrucb_Eive_SSCG-LxO-8.pdfPerforming Laboratory:[facility] [place] [address].[place], [place] [address]UUCEB METABOLIC [id number] 20:51:36 Test Item Value Reference Range Interpretation Comments SODIUM (BEAKER) 143 meq/L 136-145 (test code = 381) POTASSIUM 3.5 meq/L 3.5-5.1 Specimen slight ly (BEAKER) (test hemolyzed code = 379) CHLORIDE (BEAKER) 108 meq/L 98-107 H (test code = 382) CO2 (BEAKER) 26 meq/L 22-29 (test code = 355) BLOOD UREA 27 mg/dL 7-21 H NITROGEN (BEAKER) (test code = 354) CREATININE 2.25 mg/dL 0.57-1.25 H Specimen slight ly (BEAKER) (test hemolyzed code = 358) GLUCOSE RANDOM 130 mg/dL 70-105 H (BEAKER) (test code = 652) CALCIUM (BEAKER) 8.7 mg/dL 8.4-10.2 (test code = 697) EGFR (BEAKER) 26 Interpretatio n of eGFR (test code = mL/min/1.73 values Stage De scription 1092) sq m Result G1 Leslie l or high >=90 G2 Mildly decreased 60-89 G3a Mildl y to moderately 45-5 9 G3b Moderately to s everely 30-44 G4 Severl y decreased 15-29 G5 Kidney failure <15Reported eGF R is based on the CKD-EPI 2020 equation that d oes not use a race coefficientEsti mated GFR is not as accur ate as Creatinine Adriana cj in predicting glom erular filtration rate . Estimated GFR is not appl icable for dialysis patien ts Hand Trucker ID - BSPOCT-GLUCOSE [id number] 20:33:13 Test Item Value Reference Range Interpretation Comments POC-GLUCOSE METER 127 mg/dL 70-110 H : TESTED A T [facility] 6720 ([employer]) (test code = [facility], 1538) [address]: Hand Trucker/Techni lorna ID = [id number] for Al i, Annemarie POCT-GLUCOSE [id number] 18:17:32 Test Item Value Reference Range Interpretation Comments POC-GLUCOSE METER 210 mg/dL 70-110 H : TESTED A T [facility] 6720 ([employer]) (test code = [facility], 1538) 00482: Hand Trucker/Techni lorna ID = [id number] for Ok oroafor, Letso POCT-GLUCOSE [id number] 17:26:57 Test Item Value Reference Range Interpretation Comments POC-GLUCOSE METER 247 mg/dL 70-110 H : TESTED A T [facility] 6720 (BEAKER) ([facility] = 1538) [address]: Hand Trucker/Techni lorna ID = [id number] for Nella Hendricks POCT-GLUCOSE [id number] 16:13:16 Test Item Value Reference Range Interpretation Comments POC-GLUCOSE METER 280 mg/dL 70-110 H : TESTED A T [facility] 6720 (BEAKER) (test code [facility], = 1538) 52957: Hand Trucker/Techni lorna ID = [id number] for Nella Hendricks Urinalysis w/Microscopic + Reflex to [id number] 15:26:49 Test Item Value Reference Range Interpretation Comments Color, UA (test code Light Yellow = 5778-6) Clarity, UA (test Clear code = 5767-9) Specific [place]y, UA 1.020 1.001-1.035 (test code = 5811-5) pH, UA (test code = 6.5 5.0-8.0 5803-2) Protein, UA (test 600 mg/dL Negative A code = 81640-8) Glucose, UA (test >1000 mg/dL Negative A code = 365) Ketones, UA (test Trace Negative A code = 2514-8) Bilirubin, UA (test Negative Negative code = 02139-7) Blood, UA (test code Small Negative A = 83964-6) Nitrite, UA (test Negative Negative code = 5802-4) Leukocytes, UA (test Negative Negative code = 5799-2) Urobilinogen, UA 0.2 mg/dL 0.2-1.0 (test code = 18268-9) RBC, UA (test code = 3 See_Comment [Autom ated 68652-2) message] The system which generated this result transmit amina reference range : /HPF. The reference range was not used to interpret this result as normal/abnormal . WBC, UA (test code = 7 See_Comment [Autom ated 5821-4) message] The system which generated this result transmit amina reference range : /HPF. The reference range was not used to interpret this result as normal/abnormal . Bacteria, UA (test Rare code = 68022-2) Mucus (test code = Rare 8247-9) Crystals, Urine (test None Seen code = 50752-9) Specimen Source (test code = 2795) SCOOTER (test code = SCOOTER) Hand Trucker ID - [auto]Hand Trucker ID - tech Lab Interpretation Abnormal (test code = 61652-6) [facility] + Reflex to Culture 2022-02-16 15:26:49 Test Item Value Reference Range Interpretation Comments Color, UA (test code Light Yellow = 5778-6) Clarity, UA (test Clear code = 5767-9) Specific Katy, UA 1.020 1.001-1.035 (test code = 5811-5) pH, UA (test code = 6.5 5.0-8.0 5803-2) Protein, UA (test 600 mg/dL Negative A code = 17352-1) Glucose, UA (test >1000 mg/dL Negative A code = 365) Ketones, UA (test Trace Negative A code = 2514-8) Bilirubin, UA (test Negative Negative code = 84333-3) Blood, UA (test code Small Negative A = 15403-8) Nitrite, UA (test Negative Negative code = 5802-4) Leukocytes, UA (test Negative Negative code = 5799-2) Urobilinogen, UA 0.2 mg/dL 0.2-1.0 (test code = 19758-9) RBC, UA (test code = 3 See_Comment [Autom ated 07367-8) message] The system which generated this result transmit amina reference range : /HPF. The reference range was not used to interpret this result as normal/abnormal . WBC, UA (test code = 7 See_Comment [Autom ated 5821-4) message] The system which generated this result transmit amina reference range : /HPF. The reference range was not used to interpret this result as normal/abnormal . Bacteria, UA (test Rare code = 07980-7) Mucus (test code = Rare 8247-9) Crystals, Urine (test None Seen code = 03934-6) Specimen Source (test code = 2795) SCOOTER (test code = SCOOTER) Hand Trucker ID - [auto]Hand Trucker ID - tech Lab Interpretation Abnormal (test code = 76319-0) [facility] + Reflex to Culture 2022-02-16 15:26:49 Test Item Value Reference Range Interpretation Comments Color, UA (test code Light Yellow = 5778-6) Clarity, UA (test Clear code = 5767-9) Specific [place], UA 1.020 1.001-1.035 (test code = 5811-5) pH, UA (test code = 6.5 5.0-8.0 5803-2) Protein, UA (test 600 mg/dL Negative A code = 74748-4) Glucose, UA (test >1000 mg/dL Negative A code = 365) Ketones, UA (test Trace Negative A code = 2514-8) Bilirubin, UA (test Negative Negative code = 03666-3) Blood, UA (test code Small Negative A = 90097-6) Nitrite, UA (test Negative Negative code = 5802-4) Leukocytes, UA (test Negative Negative code = 5799-2) Urobilinogen, UA 0.2 mg/dL 0.2-1.0 (test code = 70189-7) RBC, UA (test code = 3 See_Comment [Autom ated 24239-7) message] The system which generated this result transmit amina reference range : /HPF. The reference range was not used to interpret this result as normal/abnormal . WBC, UA (test code = 7 See_Comment [Autom ated 5821-4) message] The system which generated this result transmit amina reference range : /HPF. The reference range was not used to interpret this result as normal/abnormal . Bacteria, UA (test Rare code = 57770-4) Mucus (test code = Rare 8247-9) Crystals, Urine (test None Seen code = 58833-8) Specimen Source (test code = 2795) SCOOTER (test code = SCOOTER) Hand Trucker ID - [auto]Hand Trucker ID - tech Lab Interpretation Abnormal (test code = 70326-7) [facility]FLEX URINE [id number] 15:26:49 Test Item Value Reference Range Interpretation Comments COLOR (BEAKER) (test code = 470) Light Yellow CLARITY (BEAKER) (test code = Clear 469) SPECIFIC GRAVITY UA (BEAKER) 1.020 1.001-1.035 (test code = 468) PH UA (BEAKER) (test code = 467) 6.5 5.0-8.0 PROTEIN UA (BEAKER) (test code = 600 mg/dL Negative A 464) GLUCOSE UA (BEAKER) (test code = >1000 mg/dL Negative A 365) KETONES UA (BEAKER) (test code = Trace Negative A 371) BILIRUBIN UA (BEAKER) (test code Negative Negative = 462) BLOOD UA (BEAKER) (test code = Small Negative A 461) NITRITE UA (BEAKER) (test code = Negative Negative 465) LEUKOCYTE ESTERASE UA (BEAKER) Negative Negative (test code = 466) UROBILINOGEN UA (BEAKER) (test 0.2 mg/dL 0.2-1.0 code = 463) RBC UA (BEAKER) (test code = 3 /HPF 519) WBC UA (BEAKER) (test code = 7 /HPF 520) BACTERIA (BEAKER) (test code = Rare 517) MUCUS (BEAKER) (test code = Rare 1574) CRYSTALS, URINE (BEAKER) (test None Seen code = 1521) SOURCE(BEAKER) (test code = 2795) Hand Trucker ID - [auto]Hand Trucker ID - techPOCT-GLUCOSE [id number] 15:14:56 Test Item Value Reference Range Interpretation Comments POC-GLUCOSE METER 271 mg/dL 70-110 H : TESTED [facility] T [facility] ([facility]) (test code [facility], = 1538) [address]: Hand Trucker/Techni lorna ID = [id number] for Rebecca rolly, Nella POCT-GLUCOSE [id number] 14:27:23 Test Item Value Reference Range Interpretation Comments POC-GLUCOSE METER 285 mg/dL 70-110 H : [facility] ([facility] (test code = [facility] Surinder [facility], 1538) [address]: Hand Trucker/Techni lorna ID = [id number] for Ok oroafor, Letso POCT-GLUCOSE [id number] 13:36:16 Test Item Value Reference Range Interpretation Comments POC-GLUCOSE METER 342 mg/dL 70-110 H : Notified RN/MD: ([facility]) (test code = TESTED AT [facility] 67[address] 1538) [facility], [address]: Hand Trucker/Techni lorna ID = [id number] for On aga, Denise BASIC METABOLIC [id number] 12:34:45 Test Item Value Reference Range Interpretation Comments SODIUM (BEAKER) 139 meq/L 136-145 (test code = 381) POTASSIUM 3.5 meq/L 3.5-5.1 (BEAKER) (test code = 379) CHLORIDE (BEAKER) 103 meq/L 98-107 (test code = 382) CO2 (BEAKER) 25 meq/L 22-29 (test code = 355) BLOOD UREA 27 mg/dL 7-21 H NITROGEN (BEAKER) (test code = 354) CREATININE 2.21 mg/dL 0.57-1.25 H (BEAKER) (test code = 358) GLUCOSE RANDOM 436 mg/dL 70-105 HH (BEAKER) (test code = 652) CALCIUM (BEAKER) 8.8 mg/dL 8.4-10.2 (test code = 697) EGFR (BEAKER) 26 Interpretatio n of eGFR (test code = mL/min/1.73 values Stage De scription 1092) sq m Result G1 Leslie l or high >=90 G2 Mildly decreased 60-89 G3a Mildl y to moderately 45- 59 G3b Moderately to s everely 30-44 G4 Severl y decreased 15-29 G5 Kidney failure <15Reported eGF R is based on the CKD-EPI 2020 equation that d oes not use a race coefficientEsti mated GFR is not as accur ate as Creatinine Adriana cj in predicting glom erular filtration rate . Estimated GFR is not appl icable for dialysis patien ts Hand Trucker ID - PIAYA LPOCT-GLUCOSE [id number] 12:20:08 Test Item Value Reference Range Interpretation Comments POC-GLUCOSE METER 427 mg/dL 70-110 HH : Notified RN/MD: (BEAKER) (test code = TESTED AT [facility] 1716 3935) [facility], [address]: Hand Trucker/Techni lorna ID = [id number] for On Denise restrepo HEPATIC FUNCTION [id number] 12:11:01 Test Item Value Reference Range Interpretation Comments TOTAL PROTEIN (BEAKER) (test code = 6.4 gm/dL 6.0-8.3 770) ALBUMIN (BEAKER) (test code = 1145) 2.8 g/dL 3.5-5.0 L BILIRUBIN TOTAL (BEAKER) (test code 0.3 mg/dL 0.2-1.2 = 377) BILIRUBIN DIRECT (BEAKER) (test 0.2 mg/dL 0.1-0.5 code = 706) ALKALINE PHOSPHATASE (BEAKER) (test 111 U/L 40-150 code = 346) AST (SGOT) (BEAKER) (test code = 15 U/L 5-34 353) ALT (SGPT) (BEAKER) (test code = 13 U/L 6-55 347) Hand Trucker ID Shree LAFLEURJOSTIN LHIGH SENSITIVITY TROPONIN [id number] 12:07:22 Test Item Value Reference Range Interpretation Comments HIGH SENSITIVITY 10 pg/ml See_Comment [Automated message] TROPONIN I (test code = The system which 1675464) generated this result transmitted ref erence range: <=17. Th e reference range was not used to int erpret this result as normal/abnormal . Hand Trucker ID Shree MICHELE LThe DRIVE MAN STAT High Sensitivity Troponin-I results should be used in conjunction with other diagnostic information such as ECG, clinical observations and information, and patient symptoms to aid in the diagnosis of UT.LACTIC ACID, [id number] 12:05:20 Test Item Value Reference Range Interpretation Comments LACTATE BLOOD VENOUS (2) (BEAKER) 1.58 mmol/L 0.50-2.20 (test code = 2872) Hand Trucker ID Shree MICHELE LCBC W/PLT COUNT & AUTO [id number] 11:39:33 Test Item Value Reference Range Interpretation Comments WHITE BLOOD CELL COUNT (BEAKER) 12.6 K/ L 3.5-10.5 H (test code = 775) RED BLOOD CELL COUNT (BEAKER) 4.25 M/ L 3.93-5.22 (test code = 761) HEMOGLOBIN (BEAKER) (test code = 12.2 GM/DL 11.2-15.7 410) HEMATOCRIT (BEAKER) (test code = 35.5 % 34.1-44.9 411) MEAN CORPUSCULAR VOLUME (BEAKER) 83.5 fL 79.4-94.8 (test code = 753) MEAN CORPUSCULAR HEMOGLOBIN 28.7 pg 25.6-32.2 (BEAKER) (test code = 751) MEAN CORPUSCULAR HEMOGLOBIN CONC 34.4 GM/DL 32.2-35.5 (BEAKER) (test code = 752) RED CELL DISTRIBUTION WIDTH 12.2 % 11.7-14.4 (BEAKER) (test code = 412) PLATELET COUNT (BEAKER) (test 225 K/CU MM 150-450 code = 756) MEAN PLATELET VOLUME (BEAKER) 11.5 fL 9.4-12.3 (test code = 754) NUCLEATED RED BLOOD CELLS 0 /100 WBC 0-0 (BEAKER) (test code = 413) NEUTROPHILS RELATIVE PERCENT 88 % (BEAKER) (test code = 429) LYMPHOCYTES RELATIVE PERCENT 9 % (BEAKER) (test code = 430) MONOCYTES RELATIVE PERCENT 2 % (BEAKER) (test code = 431) EOSINOPHILS RELATIVE PERCENT 0 % (BEAKER) (test code = 432) BASOPHILS RELATIVE PERCENT 0 % (BEAKER) (test code = 437) NEUTROPHILS ABSOLUTE COUNT 11.12 K/ L 1.56-6.13 H (BEAKER) (test code = 670) LYMPHOCYTES ABSOLUTE COUNT 1.16 K/ L 1.18-3.74 L (BEAKER) (test code = 414) MONOCYTES ABSOLUTE COUNT (BEAKER) 0.27 K/ L 0.24-0.36 (test code = 415) EOSINOPHILS ABSOLUTE COUNT 0.00 K/ L 0.04-0.36 L (BEAKER) (test code = 416) BASOPHILS ABSOLUTE COUNT (BEAKER) 0.01 K/ L 0.01-0.08 (test code = 417) IMMATURE GRANULOCYTES-RELATIVE 0 % 0-1 PERCENT (BEAKER) (test code = 2801) RAD, CHEST, 1 VIEW, NON [id number] 11:03:00Reason for exam:->[facility] : 1970 Sex: FFINAL REPORT RAD, CHEST, 1 VIEW, NON DEPT INDICATION: covid positive COMPARISON: None FINDINGS: Portable frontal view of the chest. IMPRESSION: Lungs and pleura: Elevated right hemidiaphragm without focal lung consolidation or pleural effusion. Mild central vascular engorgement may be exaggerated by low lung volumes. No pneumothorax.Heart and mediastinum: Magnified by technique without acute finding. Additional findings: Unremarkable osseous structures. Signed: Terrell Boyd MDReport Verified Date/Time: 02/16/2022 11:03:04 Electronically signed by: TERRELL BOYD MD on 1:03 AMPOCT- GLUCOSE [id number] 09:27:22 Test Item Value Reference Range Interpretation Comments POC-GLUCOSE METER 380 mg/dL 70-110 H : [facility] (BEAKER) (test code [facility], = 1538) [address]: Hand Trucker/Techni lorna ID = [id number] for Nella Hendricks CBC W/AUTO [id number] 00:00:00 Test Item Value Reference Range Interpretation Comments WBC (test code = 1001) 7.4 K/UL RBC (test code = 1002) 4.41 M/UL HEMOGLOBIN (test code = 1003) 12.6 G/DL HEMATOCRIT (test code = 1004) 38.4 % MCV (test code = 1005) 87.1 fL MCH (test code = 1006) 28.6 PG MCHC (test code = 1007) 32.8 G/DL RDW (test code = 1038) 11.9 % NEUTROPHILS (test code = 1008) 56.9 % LYMPHOCYTES (test code = 1010) 33.6 % MONOCYTES (test code = 1011) 5.3 % EOSINOPHILS (test code = 1012) 3.8 % BASOPHILS (test code = 1013) 0.3 % IMMATURE GRANULOCYTES (test 0.1 % code = 1036) NUCLEATED RBCS (test code = 0.0 /100WBC'S 1065) PLATELET COUNT (test code = 215 K/UL 1015) ABSOLUTE NEUTROPHILS (test code 4.22 K/UL = 1066) ABSOLUTE LYMPHOCYTES (test code 2.49 K/UL = 1067) ABSOLUTE MONOCYTES (test code = 0.39 K/UL 1068) ABSOLUTE EOSINOPHILS (test code 0.28 K/UL = 1040) ABSOLUTE BASOPHILS (test code = 0.02 K/UL 1069) ABS IMMATURE GRANULOCYTES (test 0.01 K/UL code = 1020) ABS NUCLEATED RBCS (test code = 0.00 K/UL 89217) CBC W/AUTO [id number] 00:00:00 Test Item Value Reference Range Interpretation Comments WBC (test code = 1001) 7.4 K/UL RBC (test code = 1002) 4.41 M/UL HEMOGLOBIN (test code = 1003) 12.6 G/DL HEMATOCRIT (test code = 1004) 38.4 % MCV (test code = 1005) 87.1 fL MCH (test code = 1006) 28.6 PG MCHC (test code = 1007) 32.8 G/DL RDW (test code = 1038) 11.9 % NEUTROPHILS (test code = 1008) 56.9 % LYMPHOCYTES (test code = 1010) 33.6 % MONOCYTES (test code = 1011) 5.3 % EOSINOPHILS (test code = 1012) 3.8 % BASOPHILS (test code = 1013) 0.3 % IMMATURE GRANULOCYTES (test 0.1 % code = 1036) NUCLEATED RBCS (test code = 0.0 /100WBC'S 1065) PLATELET COUNT (test code = 215 K/UL 1015) ABSOLUTE NEUTROPHILS (test code 4.22 K/UL = 1066) ABSOLUTE LYMPHOCYTES (test code 2.49 K/UL = 1067) ABSOLUTE MONOCYTES (test code = 0.39 K/UL 1068) ABSOLUTE EOSINOPHILS (test code 0.28 K/UL = 1040) ABSOLUTE BASOPHILS (test code = 0.02 K/UL 1069) ABS IMMATURE GRANULOCYTES (test 0.01 K/UL code = 1020) ABS NUCLEATED RBCS (test code = 0.00 K/UL 95311) MICROALBUMIN/CREATININE, RANDOM AND [id number] 00:00:00 Test Item Value Reference Range Interpretation Comments CREATININE, URINE, CONC. (test 104.8 MG/DL code = 2072) ALBUMIN, URINE, RANDOM (test code 216.2 MG/DL = 38259) CALC ALBUMIN/CREAT, RND (test 2063 MG/G code = 34112) CBC W/AUTO [id number] 00:00:00 Test Item Value Reference Range Interpretation Comments WBC (test code = 1001) 7.4 K/UL RBC (test code = 1002) 4.41 M/UL HEMOGLOBIN (test code = 1003) 12.6 G/DL HEMATOCRIT (test code = 1004) 38.4 % MCV (test code = 1005) 87.1 fL MCH (test code = 1006) 28.6 PG MCHC (test code = 1007) 32.8 G/DL RDW (test code = 1038) 11.9 % NEUTROPHILS (test code = 1008) 56.9 % LYMPHOCYTES (test code = 1010) 33.6 % MONOCYTES (test code = 1011) 5.3 % EOSINOPHILS (test code = 1012) 3.8 % BASOPHILS (test code = 1013) 0.3 % IMMATURE GRANULOCYTES (test 0.1 % code = 1036) NUCLEATED RBCS (test code = 0.0 /100WBC'S 1065) PLATELET COUNT (test code = 215 K/UL 1015) ABSOLUTE NEUTROPHILS (test code 4.22 K/UL = 1066) ABSOLUTE LYMPHOCYTES (test code 2.49 K/UL = 1067) ABSOLUTE MONOCYTES (test code = 0.39 K/UL 1068) ABSOLUTE EOSINOPHILS (test code 0.28 K/UL = 1040) ABSOLUTE BASOPHILS (test code = 0.02 K/UL 1069) ABS IMMATURE GRANULOCYTES (test 0.01 K/UL code = 1020) ABS NUCLEATED RBCS (test code = 0.00 K/UL 93197) MICROALBUMIN/CREATININE, RANDOM AND [id number] 00:00:00 Test Item Value Reference Range Interpretation Comments CREATININE, URINE, CONC. (test 104.8 MG/DL code = 2072) ALBUMIN, URINE, RANDOM (test code 216.2 MG/DL = 71755) CALC ALBUMIN/CREAT, RND (test 2063 MG/G code = 37512) HEMOGLOBIN [id number] 00:00:00 Test Item Value Reference Range Interpretation Comments HEMOGLOBIN A1c (test code = 43316) 9.5 % HEMOGLOBIN [id number] 00:00:00 Test Item Value Reference Range Interpretation Comments HEMOGLOBIN A1c (test code = 69267) 9.5 % HEMOGLOBIN [id number] 00:00:00 Test Item Value Reference Range Interpretation Comments HEMOGLOBIN A1c (test code = 62118) 9.5 % LIPID [id number] 00:00:00 Test Item Value Reference Range Interpretation Comments CHOLESTEROL (test code = 2210) 178 MG/DL TRIGLYCERIDES (test code = 2232) 97 MG/DL HDL CHOLESTEROL (test code = 2220) 68 MG/DL CALC LDL CHOL (test code = 2237) 91 MG/DL RISK RATIO LDL/HDL (test code = 1.34 RATIO 2238) LIPID [id number] 00:00:00 Test Item Value Reference Range Interpretation Comments CHOLESTEROL (test code = 2210) 178 MG/DL TRIGLYCERIDES (test code = 2232) 97 MG/DL HDL CHOLESTEROL (test code = 2220) 68 MG/DL CALC LDL CHOL (test code = 2237) 91 MG/DL RISK RATIO LDL/HDL (test code = 1.34 RATIO 2238) COMPREHENSIVE METABOLIC [id number] 00:00:00 Test Item Value Reference Range Interpretation Comments GLUCOSE (test code = 2217) 212 MG/DL BUN (test code = 2208) 33 MG/DL CREATININE (test code = 2214) 1.35 MG/DL eGFR AMER. (test code 53 ML/MIN/1.73 = 69858) eGFR NON- AMER. (test 45 ML/MIN/1.73 code = 26214) CALC BUN/CREAT (test code = 24 RATIO 2235) SODIUM (test code = 2231) 141 MEQ/L POTASSIUM (test code = 2228) 4.0 MEQ/L CHLORIDE (test code = 2215) 99 MEQ/L CARBON DIOXIDE (test code = 30 MEQ/L 2205) CALCIUM (test code = 2209) 9.6 MG/DL PROTEIN, TOTAL (test code = 6.7 G/DL 2228) ALBUMIN (test code = 2201) 3.5 G/DL CALC GLOBULIN (test code = 3.2 G/DL 2239) CALC A/G RATIO (test code = 1.1 RATIO 2234) BILIRUBIN, TOTAL (test code = <0.2 MG/DL 2206) ALKALINE PHOSPHATASE (test 98 U/L code = 2204) AST (test code = 2218) 13 U/L ALT (test code = 2219) 14 U/L COMPREHENSIVE METABOLIC [id number] 00:00:00 Test Item Value Reference Range Interpretation Comments GLUCOSE (test code = 2217) 212 MG/DL BUN (test code = 2208) 33 MG/DL CREATININE (test code = 2214) 1.35 MG/DL eGFR AMER. (test code 53 ML/MIN/1.73 = 08812) eGFR NON- AMER. (test 45 ML/MIN/1.73 code = 77039) CALC BUN/CREAT (test code = 24 RATIO 2235) SODIUM (test code = 2231) 141 MEQ/L POTASSIUM (test code = 2228) 4.0 MEQ/L CHLORIDE (test code = 2215) 99 MEQ/L CARBON DIOXIDE (test code = 30 MEQ/L 2205) CALCIUM (test code = 2209) 9.6 MG/DL PROTEIN, TOTAL (test code = 6.7 G/DL 2228) ALBUMIN (test code = 2201) 3.5 G/DL CALC GLOBULIN (test code = 3.2 G/DL 2239) CALC A/G RATIO (test code = 1.1 RATIO 2233) BILIRUBIN, TOTAL (test code = <0.2 MG/DL 2206) ALKALINE PHOSPHATASE (test 98 U/L code = 220) AST (test code = 2218) 13 U/L ALT (test code = 2219) 14 U/L LIVER (HEPATIC) FUNCTION [id number] 00:00:00 Test Item Value Reference Range Interpretation Comments PROTEIN, TOTAL (test code = 2229) 6.7 G/DL ALBUMIN (test code = 2201) 3.5 G/DL BILIRUBIN, TOTAL (test code = <0.2 MG/DL 2206) BILIRUBIN, DIRECT (test code = <0.2 MG/DL 2021) ALKALINE PHOSPHATASE (test code = 98 U/L 2203) AST (test code = 2218) 13 U/L ALT (test code = 2219) 14 U/L LIVER (HEPATIC) FUNCTION [id number] 00:00:00 Test Item Value Reference Range Interpretation Comments PROTEIN, TOTAL (test code = 2229) 6.7 G/DL ALBUMIN (test code = 2201) 3.5 G/DL BILIRUBIN, TOTAL (test code = <0.2 MG/DL 2206) BILIRUBIN, DIRECT (test code = <0.2 MG/DL 2021) ALKALINE PHOSPHATASE (test code = 98 U/L 2204) AST (test code = 2218) 13 U/L ALT (test code = 2219) 14 U/L [id number] 00:00:00 Test Item Value Reference Range Interpretation Comments TSH, THIRD GENERATION (test code 0.895 UIU/ML = 2821) [id number] 00:00:00 Test Item Value Reference Range Interpretation Comments TSH, THIRD GENERATION (test code 0.895 UIU/ML = 2821) [id number] 00:00:00 Test Item Value Reference Range Interpretation Comments TSH, THIRD GENERATION (test code 0.895 UIU/ML = 2821)
--- NOTE | 2022-04-09 07:37 | RAD REPORT ---
EXAM DESCRIPTION: [place] Single View04/09/2022 7:30 am CLINICAL HISTORY: Shortness of breath COMPARISON: January 2022 FINDINGS: The lungs appear clear of acute infiltrate. The heart is normal size IMPRESSION: No acute abnormalities displayed
[2022-04-09 07:55] LABS: Absolute Lymphocytes (CBC) 1.9 K/uL (0.7-4.9); Hematocrit 30.8 % (36.0-45.0); Lymphocytes % 32.4 % (15.3-44.8); MCV 91.2 fL (80-100); MPV 7.6 fL (7.6-11.3); RBC Red Blood Cell Count 3.38 M/uL (3.86-4.86)
[2022-04-09 08:16] LABS: Magnesium 2.3 mg/dL (1.8-2.4); Potassium 4.8 mmol/L (3.5-5.1); Troponin High Sensitivity 7.7 pg/mL (<58.9)
[2022-04-09 08:56] LABS: Urine Blood Trace-lysed (Negative); Urine Glucose Negative (Negative); Urine Protein 3+ (Negative); Urine Specific Gravity 1.025 (1.005-1.030)
[2022-04-09 09:02] LABS: Urine Bacteria <20 /HPF (<20); Urine RBC <5 /HPF (None Seen)
--- NOTE | 2022-04-09 09:43 | RAD REPORT ---
EXAM DESCRIPTION: USExtrem Venous W Compress Bil04/09/2022 8:50 am CLINICAL HISTORY: elevated d-dimer COMPARISON: none FINDINGS: The common femoral, superficial femoral, popliteal and posterior tibial veins bilaterally are compressible and demonstrate augmentation. Doppler demonstrates good flow. Grayscale, color and spectral analysis performed on all vessels IMPRESSION: No evidence of deep venous thrombosis involving either lower extremity.
--- NOTE | 2022-04-09 10:10 | EDPHYS ---
Physician Documentation [facility] Name: Bisi Santo Age: 52 yrs Sex: Female : 1970 Arrival Date: 04/09/2022 Time: 06:10 Bed 7 Private MD: ED Physician Dillon Jordan HPI: 04/09 07:22 This 52 yrs old Black Female presents to ER via Ambulatory with complaints of Sent over ms3 by doctor. 07:22 52-year-old with past medical history of diabetes and hypertension presents for ms3 elevated D-dimer that was drawn in January from Dr. Taylor's office. Patient states she has had swelling of her entire body since of January. Patient denies any pain. Patient denies alleviating or inciting factors.. 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 - Social history:: Smoking status: Patient denies any tobacco usage or history of. ROS: 07:22 Constitutional: Negative for fever, and chills. Neck: Negative for injury, pain, and ms3 swelling, Cardiovascular: Negative for chest pain, and palpitations. 07:22 Abdomen/GI: Negative for abdominal pain, nausea, vomiting, diarrhea, and constipation, MS/Extremity: Negative for injury and deformity, Skin: Negative for injury, rash, and discoloration. 07:22 Respiratory: Positive for shortness of breath. 07:22 All other systems are negative. Exam: 07:22 Constitutional: This is a well developed, well nourished patient who is awake, alert, ms3 and in no acute distress. Neck: Trachea midline, no cervical lymphadenopathy. Supple, full range of motion without nuchal rigidity, or vertebral point tenderness. No Meningismus. Chest/axilla: Normal chest wall appearance and motion. Nontender with no deformity. Cardiovascular: Regular rate and rhythm with a normal S1 and S2. No gallops, murmurs, or rubs. Normal PMI, no JVD. No pulse deficits. Respiratory: Lungs have equal breath sounds bilaterally, clear to auscultation and percussion. No rales, rhonchi or wheezes noted. No increased work of breathing, no retractions or nasal flaring. Abdomen/GI: Soft, non-tender, with normal bowel sounds. No distension or tympany. No guarding or rebound. No evidence of tenderness throughout. Skin: Warm, dry with normal turgor. Normal color with no rashes, no lesions, and no evidence of cellulitis. 07:22 Head/face: Noted is swelling, that is mild, of the right eye and left eye. 07:22 Musculoskeletal/extremity: Extremities: Anasarca. 09:34 ECG was reviewed by the Attending Physician. rn Vital Signs: 06:52 BP 154 / 82; Pulse 87; Resp 18 S; Temp 97.7(O); Pulse Ox 98% on R/A; Weight 88 kg (M); bb Height 5 ft. 2 in. (157.48 cm) (R); Pain 6/10; 07:36 BP 152 / 87; Pulse 83; Resp 18; Pulse Ox 98% on R/A; ph 07:56 BP 153 / 87; Pulse 80; Resp 17; Pulse Ox 97% on R/A; tw2 09:02 BP 159 / 86; Pulse 82; Resp 17; Pulse Ox 96% on R/A; tw2 09:50 BP 160 / 78; Pulse 83; Resp 17; Pulse Ox 98% on R/A; tw2 10:50 BP 146 / 78; Pulse 83; Resp 14; Pulse Ox 96% on R/A; tw2 11:46 BP 162 / 84; Pulse 72; Resp 12; Pulse Ox 98% on R/A; tw2 12:46 BP 152 / 88; Pulse 69; Resp 17; Pulse Ox 97% on R/A; tw2 13:00 BP 144 / 83; Pulse 57; Resp 14; Pulse Ox 97% on R/A; tw2 06:52 Body Mass Index 35.48 (88.00 kg, 157.48 cm) bb MDM: 06:48 Patient medically screened. ms3 07:22 Differential Diagnosis Nephrotic syndrome vs CHF vs Edema. ms3 10:08 Data reviewed: vital signs, nurses notes, lab test result(s), radiologic studies, plain rn films, ultrasound, and as a result, I will admit patient. Counseling: I had a detailed discussion with the patient and/or guardian regarding: the historical points, exam findings, and any diagnostic results supporting the discharge/admit diagnosis, lab results, radiology results, the need for further work-up and treatment in the hospital. Admission orders: after a detailed discussion of the patient's condition and case, the admit orders are written by me. 10:10 ED course: Unable to obtain CT PE due to renal insufficiency, appears chronic, will pattern mechanic for edema and VQ scan. Possibly secondary to medication vs nephrotic syndrome.. 04/09 06:49 Order name: Basic Metabolic Panel; Complete Time: 09:17 ms3 04/09 06:49 Order name: CBC with Diff; Complete Time: 07:58 ms3 04/09 06:49 Order name: D-Dimer; Complete Time: 08:16 ms3 04/09 06:49 Order name: Magnesium; Complete Time: 09:17 ms3 04/09 06:49 Order name: NT PRO-BNP; Complete Time: 09:17 ms3 04/09 06:49 Order name: Troponin HS; Complete Time: 09:17 ms3 04/09 06:49 Order name: XRAY Chest (1 view); Complete Time: 07:58 ms3 04/09 06:49 Order name: EKG; Complete Time: 06:50 ms3 04/09 07:04 Order name: Urine Microscopic Only; Complete Time: 09:17 rn 04/09 08:18 Order name: Extrem Venous W Compression Livan US; Complete Time: 09:56 rn 04/09 08:56 Order name: Urine Dipstick-Ancillary; Complete Time: 09:17 EDMS 04/09 10:11 Order name: SARS RAPID; Complete Time: 11:24 ph 04/09 11:25 Order name: Diet Renal; Complete Time: 11:25 ph 04/09 14:13 Order name: NM; Complete Time: 14:15 EDMS 04/09 06:49 Order name: Cardiac monitoring; Complete Time: 07:55 ms3 04/09 06:49 Order name: EKG - Nurse/Tech; Complete Time: 07:55 ms3 04/09 06:49 Order name: IV Saline Lock; Complete Time: 07:55 ms3 04/09 06:49 Order name: Labs collected and sent; Complete Time: 07:55 ms3 04/09 06:49 Order name: O2 Per Protocol; Complete Time: 07:34 ms3 04/09 06:49 Order name: O2 Sat Monitoring; Complete Time: 07:34 ms3 04/09 07:04 Order name: Urine Dipstick-Ancillary (obtain specimen); Complete Time: 08:55 rn EC:34 Rate is 82 beats/min. Rhythm is regular. QRS [place] is Normal. TN interval is normal. QRS rn interval is normal. QT interval is normal. No Q waves. T waves are Normal. No ST changes noted. Clinical impression: Normal ECG. Interpreted by me. Reviewed by me. Administered Medications: No medications were administered Disposition Summary: 04/09/22 10:10 Hospitalization Ordered Hospitalization Status: Observation rn Provider: Lionel Man rn Location: Telemetry/MedSurg (observation) rn Condition: Stable rn Problem: an ongoing problem rn Symptoms: are unchanged rn Bed/Room Type: Standard rn Room Assignment: 222(04/09/22 13:53) bd Diagnosis - Generalized edema rn - Proteinuria, unspecified rn Forms: - Medication Reconciliation Form rn - SBAR form rn Signatures: Dispatcher [employer] EDSofía Alvarado Brenda RN RN Dillon House MD MD rn Sims, Marcus, DO DO ms3 Corrections: (The following items were deleted from the chart) 13:53 10:10 rn bd
--- NOTE | 2022-04-09 10:10 | ER ---
Nurse's Notes [facility] Name: Bisi Santo Age: 52 yrs Sex: Female : 1970 Arrival Date: 04/09/2022 Time: 06:10 Bed 7 Private MD: Diagnosis: Generalized edema;Proteinuria, unspecified Presentation: 04/09 06:52 Chief complaint: Patient states: she was sent over by her doctor for an elevated bb D-Dimer. Coronavirus screen: At this time, the client does not indicate any symptoms associated with coronavirus-19. Ebola Screen: No symptoms or risks identified at this time. 06:52 Method Of Arrival: Ambulatory bb 07:00 Initial Sepsis Screen: Does the patient meet any 2 criteria? No. Patient's initial bb sepsis screen is negative. Does the patient have a suspected source of infection? No. Patient's initial sepsis screen is negative. Risk Assessment: Do you want to hurt yourself or someone else? Patient reports no desire to harm self or others. Onset of symptoms is unknown. 07:00 Acuity: SONIA 3 bb Triage Assessment: 14:27 General: Appears. 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 - Social history:: Smoking status: Patient denies any tobacco usage or history of. Screenin:56 Abuse screen: Denies threats or abuse. Denies injuries from another. Nutritional tw2 screening: No deficits noted. Tuberculosis screening: No symptoms or risk factors identified. Fall Risk None identified. Assessment: 07:57 Reassessment: Patient appears in no apparent distress at this time. No changes from tw2 previously documented assessment. Patient and/or family updated on plan of care and expected duration. Pain level reassessed. Patient is alert, oriented x 3, equal unlabored respirations, skin warm/dry/pink. 09:04 Reassessment: Patient appears in no apparent distress at this time. No changes from tw2 previously documented assessment. Patient and/or family updated on plan of care and expected duration. Pain level reassessed. Patient is alert, oriented x 3, equal unlabored respirations, skin warm/dry/pink. 09:51 Reassessment: Patient appears in no apparent distress at this time. No changes from tw2 previously documented assessment. Patient and/or family updated on plan of care and expected duration. Pain level reassessed. Patient is alert, oriented x 3, equal unlabored respirations, skin warm/dry/pink. 10:50 Reassessment: Patient appears in no apparent distress at this time. No changes from tw2 previously documented assessment. Patient and/or family updated on plan of care and expected duration. Pain level reassessed. Patient is alert, oriented x 3, equal unlabored respirations, skin warm/dry/pink. 11:47 Reassessment: Patient appears in no apparent distress at this time. No changes from tw2 previously documented assessment. Patient and/or family updated on plan of care and expected duration. Pain level reassessed. Patient is alert, oriented x 3, equal unlabored respirations, skin warm/dry/pink. 12:47 Reassessment: Patient appears in no apparent distress at this time. No changes from tw2 previously documented assessment. Patient and/or family updated on plan of care and expected duration. Pain level reassessed. Patient is alert, oriented x 3, equal unlabored respirations, skin warm/dry/pink. 12:50 Reassessment: Dr. Talbot steam trap worker at bedside at this time. tw2 14:17 Reassessment: attempted to call report. vg1 Vital Signs: 06:52 BP 154 / 82; Pulse 87; Resp 18 S; Temp 97.7(O); Pulse Ox 98% on R/A; Weight 88 kg (M); bb Height 5 ft. 2 in. (157.48 cm) (R); Pain 6/10; 07:36 BP 152 / 87; Pulse 83; Resp 18; Pulse Ox 98% on R/A; ph 07:56 BP 153 / 87; Pulse 80; Resp 17; Pulse Ox 97% on R/A; tw2 09:02 BP 159 / 86; Pulse 82; Resp 17; Pulse Ox 96% on R/A; tw2 09:50 BP 160 / 78; Pulse 83; Resp 17; Pulse Ox 98% on R/A; tw2 10:50 BP 146 / 78; Pulse 83; Resp 14; Pulse Ox 96% on R/A; tw2 11:46 BP 162 / 84; Pulse 72; Resp 12; Pulse Ox 98% on R/A; tw2 12:46 BP 152 / 88; Pulse 69; Resp 17; Pulse Ox 97% on R/A; tw2 13:00 BP 144 / 83; Pulse 57; Resp 14; Pulse Ox 97% on R/A; tw2 06:52 Body Mass Index 35.48 (88.00 kg, 157.48 cm) ED Course: 06:10 Patient arrived in ED. bp1 06:18 Laurent Adam DO is Attending Physician. ms3 07:04 Triage completed. bb 07:04 Arm band placed on Patient placed in an exam room, on a stretcher, on pulse oximetry. bb 07:26 Attending Physician role handed off by Laurent Adam DO ms3 07:26 Dillon Jordan MD is Attending Physician. ms3 07:31 Pia Rosado RN is Primary Nurse. tw2 07:32 XRAY Chest (1 view) In Process Unspecified. EDMS 07:41 Inserted saline lock: 22 gauge in right antecubital area, using aseptic technique. tw2 Blood collected. 07:57 Placed in gown. Bed in low position. Call light in reach. Side rails up X 1. Cardiac tw2 monitor on. Pulse ox on. NIBP on. Warm blanket given. 08:51 Extrem Venous W Compression Livan US In Process Unspecified. EDMS 08:55 Urine Microscopic Only Sent. tw2 10:09 Lionel Man MD is Hospitalizing Provider. rn 14:27 No provider procedures requiring assistance completed. Patient admitted, IV remains in vg1 place. Administered Medications: No medications were administered Medication: 09:05 VIS not applicable for this client. tw2 Outcome: 10:10 Decision to Hospitalize by Provider. rn 14:27 Admitted to Med/surg accompanied by nurse, via wheelchair, room 222, with chart, Report vg1 called to Marsha COLON 14:27 Condition: good 14:27 Instructed on the need for admit. 14:51 Patient left the ED. ph Signatures: Dispatcher [employer] EDMS Melissa Torres RN RN bb Nieto, Roman, MD MD rn Hall, Patricia, RN RN ph Alonzo Pia, RN RN tw2 Lopez, Linnea, RN RN vg1 Laurent Adam, DO DIAZ ms3 Shanika Hernandez bp1
[2022-04-09 10:59] LABS: SARS-CoV-2 Antigen Rapid Res Negative (Negative)
[2022-04-09] MEDS ORDERED: ACETAMINOPHEN 325 MG TABLET PO PRN (11:37)
[2022-04-09] MEDS ORDERED: LABETALOL 20 MG/4ML SYRINGE IV PRN (11:37)
[2022-04-09] MEDS ORDERED: HYDROCODONE/APAP 5/325 MG TAB PO PRN (11:37)
[2022-04-09] MEDS ORDERED: ONDANSETRON 4 MG/2 ML VIAL IV PRN (11:38)
[2022-04-09] MEDS ORDERED: GLUCAGON 1 MG/VIAL IM PRN ×2 (11:41→11:46)
[2022-04-09] MEDS ORDERED: D50W 25 GM/50 ML SYRINGE IV PRN ×2 (11:41→11:46)
--- NOTE | 2022-04-09 11:49 | P.HP ---
Certification for Inpatient Patient admitted to: Observation With expected LOS: <2 Midnights Patient will require the following post-hospital care: None Practitioner: I am a practitioner with admitting privileges, knowledge of patient current condition, hospital course, and medical plan of care. Services: Services provided to patient in accordance with Admission requirements found in Title 42 Section 412.3 of the Code of Federal Regulations Patient History Date of Service: 04/09/22 Reason for admission: Elevated D-dimer, Geberalized Edema History of Present Illness: Patient is a 52-year-old female with a past medical history significant for DM 2, CKD, HLD, hypertension who presents with complaint of elevated D-dimer and generalized swelling. Patient reported that has been having generalized edema worse on the waist down to her lower extremities. Patient reported the edema has been ongoing for the past 2 months. Patient reported associated signs and symptoms of shortness of breath, cough, abdominal distention and fatigue. Patient reported that she went to clinic where laboratory results indicated an elevated D-dimer. Patient denies any other signs or symptoms. Symptoms are aggravated or relieved by nothing. Patient was instructed to come to the ER for the elevated D-dimer 4 days ago. Patient decided to present to the hospital as directed. Allergies codeine Allergy (Unknown, Verified 06/28/15 16:01) Unknown meperidine [From Demerol] Allergy (Unknown, Verified 05/28/20 20:02) Unknown morphine Allergy (Unknown, Verified 05/28/20 20:02) hallucination Sulfa (Sulfonamide Antibiotics) Allergy (Unknown, Verified 05/28/20 20:02) Unknown Home Medications: Atorvastatin Calcium 20 tab PO DAILY 05/29/20 Insulin NPH Hum/Reg Insulin Hm [Novolin 70-30 100 Unit/ml Vial] 6 units SQ BID 6AM 6PM 05/29/20 Losartan Potassium 100 tab PO DAILY 05/29/20 Metformin HCl 1,000 tab PO DAILY 05/29/20 hydroCHLOROthiazide [Hydrochlorothiazide] 25 tab PO DAILY 05/29/20 Amlodipine [Norvasc*] 10 mg PO DAILY 30 Days #30 tab 06/02/20 Docusate [Colace Cap*] 100 mg PO DAILY 30 Days #30 cap 06/02/20 levoFLOXacin [Levaquin] 750 mg PO DAILY 7 Days #7 tab 06/02/20 - Past Medical/Surgical History Diabetic: Yes -: hyperlipidemia -: Hypertension -: Type 1 diabetes -: partial hysterectomy -: cyst removed from groin -: carpal tunnel repair - Family History Mother -: Hypertension, Diabetes Brother -: Diabetes - Social History Smoking Status: Never smoker Alcohol use: No CD- Drugs: No Caffeine use: No Place of Residence: Home Review of Systems General: Other (Fatigue ) Eyes: Unremarkable Respiratory: Cough, Shortness of Breath Cardiovascular: Unremarkable Gastrointestinal: Distention Musculoskeletal: Unremarkable Integumentary: Unremarkable Neurological: Unremarkable Physical Examination - Physical Exam General: Alert, Oriented x3 HEENT: Atraumatic, PERRLA Neck: Supple, 2+ carotid pulse no bruit, JVD not distended, Without JVD or thyroid abnormality Respiratory: Clear to auscultation bilaterally, Diminished Cardiovascular: Edema Capillary refill: <2 Seconds Gastrointestinal: Normal bowel sounds, Distended Musculoskeletal: No clubbing, No erythema, Swelling Integumentary: No rashes, No breakdown, No significant lesion, No erythema Neurological: Normal speech, Normal tone, Normal affect Lymphatics: No axilla or inguinal lymphadenopathy - Studies Laboratory Data (last 24 hrs) 04/09/22 07:41: WBC 5.80, Hgb 10.1 L, Hct 30.8 L, Plt Count 210 04/09/22 07:41: Sodium 142, Potassium 4.8, BUN 34 H, Creatinine 2.30 H, Glucose 71 L, Magnesium 2.3 Assessment and Plan - Plan --Generalized edema. Likely secondary to CKD vs suspected CHF. BNP elevated. Echocardiogram to assess cardiac structures and functions. Patient placed on diuresis with Lasix. Daily weight and strict I/O. -- CKD 4. Slight depreciation noted in renal functions compared to levels 2 months ago. Nephrology consulted. Avoid nephrotoxins. We will await further recommendations from minister. --Elevated D-dimer. VQ scan pending. Continue Supportive care --Hypertension. Poorly controlled. Continue home medications and labetalol as needed. --DM2. BS monitoring with sliding scale only. Continue home insulin regimen. --Class II obesity. Likely secondary to excess calories intake. Patient counseled on weight reduction, diet and excise therapy. --Anemia of chronic disease. H&H stable. We will continue monitor hemoglobin and transfuse if less than 7.0. --DVT prophylaxis with heparin subQ Discharge Plan: Home Plan to discharge in: 48 Hours - Advance Directives Does patient have a Living Will: No Does patient have a Durable POA for Healthcare: No - Code Status/Comfort Care Code Status Assessed: Yes Physician Review: Patient Assessed, Agree with Above Assessment and Plan Critical Care: No
[2022-04-09] MEDS ORDERED: DEXTROSE 10%-WATER 125 ML IV PRN (12:13)
--- NOTE | 2022-04-09 14:13 | RAD REPORT ---
EXAM DESCRIPTION: NM - Vent Perfusion VQ Scan - 04/09/2022 2:04 pm CLINICAL HISTORY: Elevated D-dimer Chest pain, shortness of breath COMPARISON: No comparisons TECHNIQUE: 21.8mCi Xe-133 gas inhaled and 6.1mCi Tc-MAA IV. Planar ventilation scan was performed in posterior projection after Xe-133 gas inhalation (wash-in, e quilibrium, and wash-out phases) followed by perfusion scan with Tc-MAA IV in multiple projections. Examination is correlated with recent chest radiograph. FINDINGS: Normal ventilation with appropriate wash-out and no significant air-trapping. No mismatched segmental perfusion defect. IMPRESSION: Low probability of acute pulmonary embolism.
[2022-04-09 15:39] LABS: Magnesium 2.2 mg/dL (1.8-2.4); Phosphorus 4.4 mg/dL (2.5-4.9); Thyroid Stimulating Hormone 1.11 uIU/mL (0.360-3.740)
[2022-04-09] MEDS: INSULIN -REGULAR HUMAN 50 UNIT/0.5 ML ML SQ SCH ×2 (16:30→21:00)
[2022-04-09] MEDS: FUROSEMIDE 40 MG/4 ML VIAL IV SCH (16:58)
[2022-04-09] MEDS: INSULIN 70/30 100 UNITS/ML SQ SCH (17:03)
[2022-04-09] MEDS: HEPARIN 5000 UNIT/ML 1 ML VIAL SQ SCH (20:44)
[2022-04-09] MEDS: ATORVASTATIN 40 MG TAB PO SCH (20:44)
[2022-04-10] MEDS: INSULIN 70/30 100 UNITS/ML SQ SCH ×2 (05:43→17:53)
[2022-04-10 05:52] LABS: Absolute Lymphocytes (CBC) 1.8 K/uL (0.7-4.9); Hematocrit 29.1 % (36.0-45.0); Lymphocytes % 36.4 % (15.3-44.8); MCV 91.6 fL (80-100); RBC Red Blood Cell Count 3.17 M/uL (3.86-4.86)
--- NOTE | 2022-04-10 05:54 | CON ---
Date of Consultation: 04/09/2022 Chief Complaint: Acute kidney injury, generalized weakness and anasarca. History Of Present Illness: The patient was admitted to the hospital because of generalized weakness and edema of the lower extremity and upper extremities. The patient complained of edema, progressed , and it has been going on at least for 2 months, and recently it has progressed to the upper extremi ties. The patient denies nonsteroidal anti-inflammatory medication. The patient had symptoms of sarah rtness of breath, cough, abdominal distention, and fatigue. The patient was found to have elevated D -dimer. She denies although wheezing or hemoptysis. Workup for possible PE was ordered by the ER st aff. Nephrology consultation is requested for elevated BUN and creatinine. The patient has a history of d iabetes mellitus. Prior to this admission, the patient was taking angiotensin receptor edel for h ypertension and hydrochlorothiazide. She is an insulin-dependent diabetic, although she was taking m etformin as well. Review of Systems: General: Denies fever or chills. Eyes: Denies vision changes. Ears, Nose, Mouth and Throat: Denies sore throat or earache. Respiratory: Denies PND or orthopnea. GI: Denies nausea, vomiting, melena, hematemesis. : Denies dysuria or hematuria. Musculoskeletal: Denies history of gout. Denies joint swelling, although she had generalized edema progressively worse over the last several weeks. All other systems reviewed and are negative. Past Medical History: Hyperlipidemia, hypertension, diabetes mellitus type 2, hysterectomy, cyst rem oval, carpal tunnel repair. Family History: Hypertension, diabetes. Brother, diabetes. Social History: Denies tobacco, alcohol, illicit drugs. Physical Examination: General: The patient is awake, alert, oriented x3. Not in acute distress. Eyes: Anicteric sclerae. EOMI. Ears, Nose, Mouth, and Throat: Oral mucosa moist. No pallor. Neck: Supple. No bruits. Lungs: Diminished breath sounds at bases. Heart: S1 and S2. Abdomen: Soft, benign. Extremities: Slight edema. Impression And Plan: 1.Generalized edema. Patient is undergoing workup for congestive heart failure. BNP was elevated. Patient will have cardiac echocardiogram for evaluation of the ejection fraction. The patient was s tarted on Lasix for volume control. 2.Elevated BUN and creatinine. The patient has underlying diabetes, which may be the cause of chron ic kidney disease. Likely there is an element of acute kidney injury secondary to cardiorenal syndro me. Continue diuretics, monitor renal function and urine output. 3.Elevated D-dimer. The patient will have a V/Q scan. The patient has high risk of accelerated acu te kidney injury due to contrast exposure. 4.Hypertension, angiotensin receptor edel is on hold due to acute kidney injury. Continue labeta lol. 5.Diabetes mellitus. Continue insulin. Patient is not a candidate for metformin due to abnormal re nal function test. 6.Anemia of chronic disease. Hemoglobin level is stable. Monitor hemoglobin level and plan to rogel sfuse if hemoglobin is less than 7. EB/MODL Voice ID: [id number] Report ID: [id number]
[2022-04-10 06:05] VITALS: BMI 32.5
[2022-04-10 06:09] LABS: Potassium 4.2 mmol/L (3.5-5.1)
[2022-04-10] MEDS: INSULIN -REGULAR HUMAN 50 UNIT/0.5 ML ML SQ SCH ×4 (07:30→20:55)
--- NOTE | 2022-04-10 08:24 | EKG ---
Test Date: 2022-04-09 Test Time: 07:48:48 Supervisor Soakers: DALY MEASUREMENT RESULTS: Intervals: Rate: 82 WV: 148 QRSD: 86 QT: 380 QTc: 443 [place]: P: 50 WV: 148 QRS: -14 T: 41 INTERPRETIVE STATEMENTS: Normal sinus rhythm Normal ECG Compared to ECG 02/16/2022 04:27:32 Atrial abnormality no longer present Incomplete right bundle-branch block no longer present Myocardial infarct finding no longer present Electronically Signed On 04-10-22 08:20:28 ORDER EXPEDITER by Rashid Smith
[2022-04-10] MEDS ORDERED: AMLODIPINE 10 MG TAB PO SCH (09:00)
[2022-04-10] MEDS ORDERED: INFLUENZA VACCINE (for 6+ mo) 0.5 ML DOSE IMVAC ONE (09:00)
[2022-04-10] MEDS: DOCUSATE NA 100 MG CAP PO SCH (09:03)
[2022-04-10] MEDS: HEPARIN 5000 UNIT/ML 1 ML VIAL SQ SCH ×2 (09:03→20:53)
[2022-04-10] MEDS: ASPIRIN EC 81 MG TAB PO SCH (09:03)
[2022-04-10] MEDS: FUROSEMIDE 40 MG/4 ML VIAL IV SCH ×2 (09:03→17:06)
--- NOTE | 2022-04-10 12:34 | RAD REPORT ---
EXAM DESCRIPTION: US - Abdomen Pelvis Scan US - 04/10/2022 11:28 am CLINICAL HISTORY: High blood pressure generalized edema COMPARISON: No comparisons FINDINGS: The bilateral kidneys are normal in size, the right measuring 10.4 x 5.8 x 4.3 cm and the left measuring 10.7 x 5.6 x 4.7 cm. Aortic velocity: 135 cm/second Right proximal renal artery: 151 cm/second Right mid renal artery: 139 cm/second Right distal renal artery: 105 cm/second Right renal arcuate artery resistive index: 0.6 Right renal artery / aorta ratio: 0.8 Left proximal renal artery: 62 cm/second Left mid renal artery: 75 cm/second Left distal renal artery: 109 cm/second Left renal arcuate artery resistive index: 0.8 Left renal artery/aorta ratio: 0.7 Normal waveforms demonstrated within the bilateral renal arteries. IMPRESSION: No evidence of hemodynamically significant stenosis within the bilateral renal arteries.
[2022-04-10] MEDS ORDERED: AMLODIPINE 5 MG TAB PO ONE (18:00)
[2022-04-10] MEDS: ATORVASTATIN 40 MG TAB PO SCH (20:53)
[2022-04-10] MEDS: carvediloL 6.25 MG TAB PO SCH (20:53)
[2022-04-10] MEDS: cloNIDine HCL 0.1 MG TAB PO SCH (20:54)
--- NOTE | 2022-04-10 22:24 | PN ---
Date of Progress Note: 04/10/2022 Chief Complaint: Acute kidney injury, generalized weakness, and anasarca. Subjective: The patient was admitted to the hospital because of generalized weakness. Edema of the lower extremity was getting worse over last 2 months. She developed weakness, fatigue, and some dyspnea on exertion. Patient denies nonsteroidal antiinflammatory medication. She denied history of fever, chills, hematuria, dysuria, or renal colic. Nephrology consultation was requested for elevated BUN and creatinine. Patient has history of diabetes mellitus. Prior to this admission, the patient was taking angiotensin receptor edel for hypertension along with hydrochlorothiazide. She has insulin-dependent diabetes mellitus. She was taking metformin as well. Review of Systems: Denies fever or chills. Physical Examination: Lungs: Clear to auscultation bilaterally. Heart: S1, S2. Abdomen: Soft, benign. Extremities: Slight edema. Impression And Plan: 1. Generalized edema. Patient is undergoing workup for congestive heart failure. BNP was elevated. Patient will have cardiac echo for evaluation of ejection fraction. Patient will continue Lasix for volume control. 2. Elevated BUN and creatinine. Over last 24 hours, creatinine level slightly improved. Monitor fluid balance and electrolytes. Adjust treatment with combination of diuretic as needed. 3. Elevated D-dimer. Patient was scheduled to have V/Q scan to rule out pulmonary embolism. The patient cannot have IV contrast exposure due to high risk of accelerated kidney failure. 4. Diabetes mellitus. The patient is not a candidate for metformin due to abnormal renal function test. 5. Anemia of chronic kidney disease. Hemoglobin level stable. Continue to monitor. 6. Acute kidney injury. Patient has underlying chronic kidney disease stage 3 and an episode of acute kidney injury with prerenal azotemia back in 2020. She did not require dialysis. The patient was admitted with generalized weakness. Plan is to screen for proteinuria. Urinalysis done during this admission did not show active urinary sediment. There is no microscopic hematuria present, although proteinuria was 3+ and blood work was ordered to check for any evidence of monoclonal gammopathy. Plan is to check ANCA and ultrasound was ordered and pending. TRAVON/MODL Voice ID: [id number] Report ID: [id number]
[2022-04-11 02:39] LABS: Specific Gravity 1.008 (1.005-1.030); Urine Bacteria >50 /HPF (<20); Urine Bilirubin NEGATIVE (Negative); Urine Blood Negative (Negative); Urine Clarity Turbid (Clear); Urine Color Light-Yellow (Yellow); Urine Glucose NEGATIVE (Negative); Urine Mucus Slight /HPF (None Seen); Urine Protein 2+ (Negative); Urine Urobilinogen Normal (Normal); Urine pH 6.5 (5.0-7.0)
[2022-04-11] MEDS: INSULIN 70/30 100 UNITS/ML SQ SCH (05:40)
[2022-04-11 06:18] LABS: Absolute Lymphocytes (CBC) 1.6 K/uL (0.7-4.9); Hematocrit 28.7 % (36.0-45.0); Lymphocytes % 34.4 % (15.3-44.8); MCV 88.8 fL (80-100); MPV 8.3 fL (7.6-11.3); RBC Red Blood Cell Count 3.24 M/uL (3.86-4.86)
[2022-04-11 06:46] LABS: Potassium 3.8 mmol/L (3.5-5.1)
[2022-04-11] MEDS: INSULIN -REGULAR HUMAN 50 UNIT/0.5 ML ML SQ SCH (07:30)
[2022-04-11] MEDS ORDERED: ALBUMIN HUMAN 25% 12.5 GM, FUROSEMIDE 100 MG in NA CHLORIDE 0.9% 40 ML IV SCH (08:00)
[2022-04-11] MEDS ORDERED: METOLAZONE 2.5 MG TABLET PO SCH (09:00)
[2022-04-11] MEDS ORDERED: POTASSIUM CL SA 10 MEQ TAB PO ONE (09:00)
[2022-04-11] MEDS: DOCUSATE NA 100 MG CAP PO SCH (09:00)
[2022-04-11] MEDS: ASPIRIN EC 81 MG TAB PO SCH (09:55)
[2022-04-11] MEDS: FUROSEMIDE 40 MG/4 ML VIAL IV SCH (09:56)
[2022-04-11] MEDS: cloNIDine HCL 0.1 MG TAB PO SCH (09:56)
[2022-04-11] MEDS: HEPARIN 5000 UNIT/ML 1 ML VIAL SQ SCH (09:56)
[2022-04-11] MEDS: carvediloL 6.25 MG TAB PO SCH (09:56)
[2022-04-11 10:18] VITALS: BP 142/79
[2022-04-11 10:22] VITALS: TEMP 97.9; O2SAT 98
--- NOTE | 2022-04-11 14:57 | PN ---
Date of Progress Note: 04/11/2022 Subjective: The patient was admitted with acute kidney injury, nephrotic range proteinuria. The pat ient known to have chronic kidney disease. Back in January; creatinine 2, GFR 28. Physical Examination: Vital Signs: Blood pressure 142/79, pulse of 83, afebrile. Chest: Clear to auscultation. Heart: S1, S2. Regular. Abdomen: Soft, nontender. Extremity: No edema. Neurologic: Alert. No focality. Laboratory Data: Hemoglobin 9.7. Sodium 141, potassium 3.8, bicarb 28, BUN 23, creatinine 2, GFR 28 , calcium 8.7, magnesium of 2. Serum protein electrophoresis is still pending. PC ratio still pendi ng. Assessment And Plan: 1.Chronic kidney disease secondary to diabetes nephropathy. I am going to go ahead and quantify the proteinuria. We will send for protein electrophoresis. We will follow up. 2.Hypertension, controlled, optimal. Given the proteinuria, I am going to start the patient on low dose of losartan. 3.Anasarca secondary to nephrotic range proteinuria. Continue diuresis. Responded very well to cur rent dose. 4.Anemia of chronic kidney disease with the presence of acute kidney injury to rule out any light ch ain disease. We will send for anemia workup and I am going to send for serum protein electrophoresis and we will follow up. 5.Diabetes as by primary. HODA/JU Voice ID: [id number] Report ID: [id number]
--- NOTE | 2022-04-12 08:09 | ECHO ---
HEIGHT: 5 ft 2 in WEIGHT: 168 lb 9.6 oz DATE OF STUDY: 04/11/[address]: Moises Aponte 2-DIMENSIONAL: YES M.MODE: YES DOPPLER: YES COLOR FLOW: YES TDS: NO PORTABLE: YES DEFINITY: NO BUBBLE STUDY: NO DIAGNOSIS: EDEMA CARDIAC HISTORY: CATHERIZATION: SURGERY: PROSTHETIC VALVE: PACEMAKER: MEASUREMENTS (cm) DIASTOLIC (NORMALS) SYSTOLIC (NORMALS) IVSd 1.4 (0.6-1.2) LA Diam 3.0 (1.9-4.0) LVEF 67% LVIDd 3.6 (3.5-5.7) LVIDs 2.3 (2.0-3.5) %FS 37% LVPWd 1.2 (0.6-1.2) Ao Diam 2.6 (2.0-3.7) 2 DIMENSIONAL ASSESSMENT: RIGHT ATRIUM: NORMAL LEFT ATRIUM: NORMAL RIGHT VENTRICLE: NORMAL LEFT VENTRICLE: NORMAL TRICUSPID VALVE: NORMAL MITRAL VALVE: NORMAL PULMONIC VALVE: NORMAL AORTIC VALVE: NORMAL PERICARDIAL EFFUSION: TRACE AORTIC ROOT: NORMAL LEFT VENTRICULAR WALL MOTION: NORMAL DOPPLER/COLOR FLOW: NORMAL COMMENTS: 1. TRACE PERICARDIAL EFFUSION. 2. NORMAL LEFT VENTRICULAR SIZE AND FUNCTION. 3. NO MITRAL VALVE PROLAPSE. 4. NO EFFUSION. TECHNOLOGIST: Radha MEDRANO
[2022-04-12] MEDS ORDERED: LOSARTAN POTASSIUM 50 MG TABLET PO SCH (09:00)
[2022-04-14 02:53] LABS: HBsAG Nonreactive (Nonreactive)
[2022-04-15 09:59] LABS: HIV AG/AB 4TH GEN Non-reactive (Non-reactive)
== END 2022-04-11 12:26 | disposition home or self-care (01) ==
LOC: ER 06:04 → ERHOLD 11:06 → 2ND 14:30
PROVIDERS: ADMIT Hospitalist; ATTEND Hospitalist
DX: N17.9 Acute kidney failure, unspecified (principal); E78.5 Hyperlipidemia, unspecified; D63.1 Anemia in chronic kidney disease; N18.9 Chronic kidney disease, unspecified; R60.1 Generalized edema; E11.21 Type 2 diabetes mellitus with diabetic nephropathy; I13.10 Hypertensive heart and chronic kidney disease without heart failure, with stage 1 through stage 4 chronic kidney disease, or unspecified chronic kidney disease; E11.22 Type 2 diabetes mellitus with diabetic chronic kidney disease; R80.9 Proteinuria, unspecified; Z88.6 Allergy status to analgesic agent; Z88.2 Allergy status to sulfonamides; Z79.4 Long term (current) use of insulin; Z20.822 Contact with and (suspected) exposure to COVID-19
CPT/HCPCS: 93005; 93306; 85025 ×3; 81001; 80048 ×3; 36415 ×3; 83735 ×3; 82550; 84100; 80061 ×2; 82947 ×9; 85379; 84443; 83036; 82040; 82570; 84484; 84439; 86162; 83970; 82306; 86038; 83880 ×2; 87389; 86160 ×2; 86334; 84156; 84166; 86021 ×2; 80074; 71045; 90471; 93970; 93975; 78582; 99285; 87811; J1940 ×4; J1644 ×4; J1815 ×2; Q2035; G0378 ×9; P9047; A9558; A9540; 81003; 81015

== ENCOUNTER 2022-05-30 12:24 | Emergency (ER) | payer OTHER ==
--- OUTSIDE RECORDS SUMMARY | 2022-05-30 12:27 | XMS REPORT | Clinical Summary ---
:1970 Author Organization [facility] MD Iqbal [facility] Address [facility] [place] [address] Care Team Providers Name Role Phone Cassie Porter MD Unavailable Allergies Not on File Medications Not on file Active Problems Not on file Social History Tobacco Use Types Packs/Day Years Used Date Smoking Tobacco: Never Assessed Sex Assigned at Date Recorded Not on file Last Filed Vital Signs Not on file Plan of Treatment Not on file Results Not on fileafter 05/30/2021 Care Teams [employer] Supervisor Relationship Specialty Start Date End Date Cassie Porter MD PCP - External Referring 04/29/182119 [place] [address]
--- OUTSIDE RECORDS SUMMARY | 2022-05-30 12:31 | XMS REPORT | Continuity of Care Document ---
:1970 Author Organization [facility] t Address [address] [place] [address] Care Team Providers Name Role Phone Griselda SWARTZ, Darlene Primary Care Physician [phone] Bernardo MAGALLANES, Ara Conte Attending Clinician Clinton Carpenter MD Attending Clinician Diamond Oliveira MD Attending Clinician [phone] John Franks MD Attending Clinician JOHN [...] Comments Source Sex Assigned At [birth year] [facility] Sabi kes 00:00:00 00:00:00 [facility] Medications Ordered Filled Start Stop Current Ordering Indication Dosage Frequency Signature Comments Components Source Medication Medication Date Date Medication? Clinician (SIG) Name Name Dose 2021-05 No Unknown 06-02 00:00: 00 INJECT 10 2021-05 No UNITS IN 1-07 THE AM AND 00:00: 10 UNITS IN 00 THE EVENING insulin 2022- No 10U Inject 10 [facility] 70/30, 02-22 [facility] insulin 00:00: 23:59 subcutaneo Med ical NPH-insulin 00 :[address] regular, (two) (HumuLIN times 70/30) 100 daily unit/mL before (70-30) meals. injection insulin 2022- No 10U Inject 10 [facility] 70/30, 02-22 [facility] insulin 00:00: 23:59 subcutaneo Med ical NPH-insulin 00 :[address] regular, (two) (HumuLIN times 70/30) 100 daily unit/mL before (70-30) meals. injection insulin 2022- No 10U Inject 10 [facility] 70/30, 02-22 [facility] insulin 00:00: 23:59 subcutaneo Med ical NPH-insulin 00 :[address] regular, (two) (HumuLIN times 70/30) 100 daily unit/mL before (70-30) meals. injection insulin 2022- No 10U Inject 10 [facility] 70/30, 02-22 [facility] insulin 00:00: 23:59 subcutaneo Med ical NPH-insulin 00 :[address] regular, (two) (HumuLIN times 70/30) 100 daily unit/mL before (70-30) meals. injection amLODIPine No 10mg QD Take 1 [facility] (NORVASC) 02-22 12-28 tablet (10 Celia es 10 MG 00:00: 23:59 mg total) Medica l tablet 00 :00 by mouth Center daily for 90 days. carvediloL 0 2021- No 25mg Q.5D Take [address] [facility] [address] (COREG) 25 02-22-28 tablet (25 Sabi kes MG tablet 00:00: 23:59 mg total) Me dical 00 :00 by mouth 2 Center (two) times daily for 90 days. amLODIPine 2021-2021- No 10mg QD Take [address] [facility] (NORVASC) 02-22-28 tablet (10 Celia es 10 MG 00:00: 23:59 mg total) Medica l tablet 00 :00 by mouth Center daily for 90 days. carvediloL 2021-2021- No 25mg Q.5D Take [address] [facility] [address] (COREG) 25 02-22-28 tablet (25 Sabi kes MG tablet 00:00: 23:59 mg total) Me dical 00 :00 by mouth 2 Center (two) times daily for 90 days. amLODIPine 2021-2021- No 10mg QD Take [address] [facility] (NORVASC) 02-22 tablet (10 Celia es 10 MG 00:00: 23:59 mg total) Medica l tablet 00 :00 by mouth Center daily for 90 days. carvediloL 2021-2021- No 25mg Q.5D Take [address] [facility] (COREG) 25 02-22- tablet (25 Sabi kes MG tablet 00:00: 23:59 mg total) Me dical 00 :00 by mouth 2 Center (two) times daily for 90 days. amLODIPine 2021-2021- No 10mg QD Take [address] [facility] [address] (NORVASC) 02-22- tablet (10 Celia es 10 MG 00:00: 23:59 mg total) Medica l tablet 00 :00 by mouth Center daily for 90 days. carvediloL 2021-2021- No 25mg Q.5D Take [address] [facility] (COREG) 25 02-22-28 tablet (25 Sabi kes MG tablet 00:00: 23:59 mg total) Me dical 00 :00 by mouth 2 Center (two) times daily for 90 days. insulin 2021- No 4U Inject 4 [facility] lispro 02-22- [facility] (HumaLOG) 00:00: 00:00 subcutaneo M [...] 10U QD Inject [address] detemir - 09-29 Units [facility] U-100 00:00: 00:00 subcutaneo Medic al (LEVEMIR) 00 :00 usly Center 100 unit/mL nightly. injection insulin 2021- No 4U Inject 4 [facility] lispro 02-22 09-29 [facility] (HumaLOG) 00:00: 00[facility] unit/mL 00 :00 usly [...] 02-22 09-29 [facility] (HumaLOG) [facility]mL 00 :00 usly 3 Center injection (three) times daily before meals Additional dose If BS > 150 take 2 units, > 200 - 4 units, > 250 - 6 units, > 300 - 8 units, > 350 - 10 units, > 400 take 12 units, and call PCP.. insulin 2021- No 10U QD Inject [address] [facility] detemir - 09-29 [facility] U-100 00:00: 00:00 subcutaneo [...] 4U Inject 4 [facility] lispro 9-29 09-29 [facility] (HumaLOG) 00:00: 00:00 subcutaneo [...] 1mg mg tablet 01-11 00:00: 00 Dose 2020-0 No Unknown 8-05 00:00: 00 losartan 50 No 1mg mg-hydrochl [...] 10:03:00 Systolic blood 2022-02-22 10:35:00 116 mm[Hg] [facility] Diastolic blood 2022-02-22 10:35:00 68 mm[Hg] [facility] Heart rate 2022-02-22 10:35:00 84 /min [facility] Body temperature 2022-02-22 10:35:00 36.5 Cori [facility] Respiratory rate 2022-02-22 10:35:00 16 /min [facility] Oxygen saturation in 2022-02-22 10:35:00 98 /min [facility] Arterial blood by Medical Ce nter Pulse oximetry Body weight 2022-02-17 16:15:00 72.3 kg [facility] BMI 2022-02-17 16:15:00 27.36 kg/m2 [facility] Body height 2022-02-17 16:15:00 162.6 cm [facility] Body Temperature 2021-01-11 09:40:00 98.80 degrees Heart [...] Clinician Sour e POCT-GLUCOSE METER 2022-02-22 10:39:00 John Franks [facility] POCT-GLUCOSE METER 2022-02-22 07:49:00 John Franks [facility] BASIC METABOLIC PANEL 2022-02-22 04:19:00 Ivan Aguilar [facility] POCT-GLUCOSE METER 2022-02-21 23:22:00 John Franks [facility] POCT-GLUCOSE METER 2022-02-21 16:22:00 Joycelyn John [facility] POCT-GLUCOSE METER 2022-02-21 11:29:00 Joycelyn [facility] POCT-GLUCOSE METER 2022-02-21 07:39:[address] [facility] BASIC METABOLIC PANEL 2022-02-21 03:46:00 Ivan Aguilar [facility] POCT-GLUCOSE METER 2022-02-21 00:17:00 [facility] WITH & 2022-02-20 18:30:00 Zander Ham [facility] WITHOUT IV CONTRAST Medical Cent er XR CHEST 1 VIEW PORTABLE 2022-02-20 15:20:00 Joycelyn Eve odonnell [facility] / BEDSIDE [facility] POCT-GLUCOSE METER 2022-02-20 12:50:00 Joycelyn John [facility] CBC W/PLT COUNT & AUTO 2022-02-20 06:08:00 KellieLevi [facility] COMPREHENSIVE METABOLIC 2022-02-20 06:08:00 [facility] MAGNESIUM 2022-02-20 06:08:00 KellieLevi [facility] PHOSPHORUS 2022-02-20 06:08:00 [facility] W/PLT COUNT & AUTO 2022-02-20 06:08:00 KellieLevi [facility] S t [facility] DIFFERENTIAL [facility] POCT-GLUCOSE METER 2022 18:11:00 [facility] POCT-[facility]UCOSE METER 2022 16:16:00 Tee [facility] POCT-GLUCOSE METER 2022 12:41:00 [facility] VITAMIN D, 25-HYDROXY 2022 09:30:00 Chioma Bustillos [facility] POCT-GLUCOSE METER 2022 08:14:00 JaydenClinton hawk [facility] CBC W/PLT COUNT & AUTO 2022 02:10:00 Kellie, Levialecia SMITH [facility] DIFFERENTIAL [facility] COMPREHENSIVE METABOLIC 2022 02:10:00 Kellie, Levi [facility] PANEL [facility] MAGNESIUM 2022 02:10:00 Kellie Levi [facility] PHOSPHORUS 2022 02:10:00 Kellie, Levi [facility] PTH, INTACT 2022 02:10:00 Najma Koo [facility] CBC W/PLT COUNT & AUTO 2022 02:10:00 KellieLevi tinoco [facility] S [facility] DIFFERENTIAL [facility] POCT-GLUCOSE METER 2022-02-18 22:01:00 JaydenNikhild [facility] POCT-GLUCOSE METER 2022-02-18 17:32:00 [facility] POCT-GLUCOSE METER 2022-02-18 13:00:00 [facility] 2D ECHO W/ DOPPLER 2022-02-18 10:36:26 Marina Logan [facility] (CW/PW/COLOR) [facility] POCT-GLUCOSE METER 2022-02-18 09:25:00 Jayden [facility] US RENAL COMPLETE 2022-02-18 08:33:00 Aissatou Henry [facility] POCT-GLUCOSE METER 2022-02-18 05:33:00 [facility] CBC W/PLT COUNT & AUTO 2022-02-18 04:09:00 KellieLevi tinoco [facility] S t [facility] DIFFERENTIAL [facility] COMPREHENSIVE METABOLIC 2022-02-18 04:09:[address] [facility] PANEL [facility] MAGNESIUM 2022-02-18 04:09:00 Levi Hopkins [facility] PHOSPHORUS 2022-02-18 04:09:00 Levi Hopkins [facility] CBC W/PLT COUNT & AUTO 2022-02-18 04:09:00 Levi Hopkins [facility] DIFFERENTIAL [facility] POCT-GLUCOSE METER 2022-02-17 22:53:00 Jayden [facility] MR BRAIN WITHOUT IV 2022-02-17 18:29:00 [facility] POCT-GLUCOSE METER 2022-02-17 18:27:[address] [facility] TSH/FREE T4 IF INDICATED 2022-02-17 17:06:00 Aissatou Henry [facility] T4, FREE 2022-02-17 17:06:00 [facility] PO[facility]SE [facility]ER 2022-02-17 16:29:[address] [facility] POCT-GLUCOSE METER 2022-02-17 15:14:00 Jayden, [facility] POCT-GLUCOSE METER 2022-02-17 14:10:[address] [facility] POCT-GLUCOSE METER 2022-02-17 13:18:[address] [facility] ECG 12-LEAD 2022-02-17 12:16:45 Carl [facility] ECG 12-LEAD 2022-02-17 12:16:45 Unknown, Hl7 [facility] ECG 12-LEAD 2022-02-17 12:16:45 Unknown, Hl7 [facility] BASIC METABOLIC PANEL 2022-02-17 12:12:00 Ivan Aguilar [facility] POCT-GLUCOSE METER 2022-02-17 11:36:00 Clinton Carpenter [facility] POCT-GLUCOSE METER 2022-02-17 10:04:00 Jayden [facility] POCT-GLUCOSE METER 2022-02-17 09:01:00 Clinton Carpenter [facility] BASIC METABOLIC PANEL 2022-02-17 08:53:00 Aguilar Ivan [facility] POCT-GLUCOSE METER 2022-02-17 08:13:00 Jayden, Nance [facility] BASIC METABOLIC PANEL 2022-02-17 05:41:00 Jeff Ivan [facility] MAGNESIUM 2022-02-17 05:41:00 Jeff [facility] PHOSPHORUS 2022-02-17 05:41:00 Jeff [facility] POCT-GLUCOSE METER 2022-02-17 05:18:00 Jayden [facility] HEMOGLOBIN A1C 2022-02-17 03:29:00 [facility] CBC W/PLT COUNT & AUTO 2022-02-17 03:29:00 Levi Hopkins [facility] S [facility] DIFFERENTIAL [facility] COMPREHENSIVE METABOLIC 2022-02-17 03:29:00 [facility] PANEL [facility] MAGNESIUM 2022-02-17 03:29:00 Levi Hopkins [facility] PHOSPHORUS 2022-02-17 03:29:00 KellieLevi [facility] CBC W/PLT COUNT & AUTO 2022-02-17 03:29:00 Levi Hopkins [facility] POCT-GLUCOSE METER 2022-02-17 02:55:00 Jayden [facility] BASIC METABOLIC PANEL 2022-02-17 01:40:00 Alecia Aguilaregan [facility] POCT-GLUCOSE METER 2022-02-17 01:22:00 Jayden [facility] POCT-GLUCOSE METER 2022-02-17 00:01:[address] [facility] XR ABDOMEN/KUB 1 VIEW 2022-02-16 22:34:00 Ivan Aguilar [facility] PORTABLE [facility] POCT-GLUCOSE METER 2022-02-16 22:18:[address] [facility] BLOOD GAS, ARTERIAL 2022-02-16 21:43:00 Alecia [facility] CHEST 1 VIEW PORTABLE 2022-02-16 21:29:00 [facility] POCT-GLUCOSE METER 2022-02-16 21:02:[address] [facility] KETONE, BLOOD 2022-02-16 20:59:00 Jeff [facility] POCT-GLUCOSE METER 2022-02-16 20:22:[address] [facility] BASIC METABOLIC PANEL 2022-02-16 20:16:00 Jeff Ivan [facility] POCT-GLUCOSE METER 2022-02-16 18:06:[address] [facility] POCT-GLUCOSE METER 2022-02-16 17:15:[address] [facility] POCT-GLUCOSE METER 2022-02-16 16:01:[address] [facility] POCT-GLUCOSE METER 2022-02-16 15:03:[address] [facility] BLOOD CULTURE 2022-02-16 14:48:00 Desmond [facility] URINALYSIS W/ REFLEX 2022-02-16 14:29:00 Desmond [facility] URINE CULTURE [facility] Center POCT-GLUCOSE METER 2022-02-16 14:16:00 Jayden N[facility] BLOOD CULTURE 2022-02-16 13:40:00 Marina Logan [facility] POCT-GLUCOSE METER 2022-02-16 13:24:00 Ara Chang [facility] POCT-GLUCOSE METER 2022-02-16 12:09:00 Ara Chang [facility] EEG AWAKE AND DROWSY 2022-02-16 11:47:00 Clinton Carpenter [facility] CBC W/PLT COUNT & AUTO 2022-02-16 11:25:00 Clinton Carpenter [facility] DIFFERENTIAL [facility] BASIC METABOLIC PANEL 2022-02-16 11:25:00 Jayden Nance [facility] HIGH SENSITIVITY TROPONIN 2022-02-16 11:25:00 Jayden Nance [facility] HEPATIC FUNCTION PANEL 2022-02-16 11:25:00 John Carpenterhammad [facility] LACTIC ACID, VENOUS 2022-02-16 11:25:00 Jayden Nance [facility] CBC W/PLT COUNT & AUTO 2022-02-16 11:25:00 Jayden Nance [facility] DIFFERENTIAL [facility] SARS-COV2/RT-PCR ([facility] & 2022-02-16 11:03:00 [facility] REF LABS) [facility] MRSA SCREEN 2022-02-16 11:03:00 [facility] Nance [facility] XR CHEST 1 VIEW PORTABLE 2022-02-16 10:40:00 Jayden Nance [facility] / BEDSIDE [facility] POCT-GLUCOSE METER 2022-02-16 09:16:00 Bernardo Ara [facility] Plan of Care Planned Activity Planned Date Details Comments Source Future Scheduled 2022-05-27 DEPRESSION SCREENING [facility] Test 00:00:00 (12+) [code = Medical Center DEPRESSION SCREENING (12+)] Future Scheduled 2022-01-25 INFLUENZA VACCINE (#1) C [...] breast Medical C enter (procedure) [code = 321867863] Future Scheduled 2021-05-29 Screening for malignant [facility] Test 00:00:00 neoplasm of breast Medical C enter (procedure) [code = 034524229] Future Scheduled 2021-05-29 Screening for malignant [facility] Test 00:00:00 neoplasm of breast Medical C enter (procedure) [code = 595413618] Future Scheduled 2021-05-29 Screening for malignant [facility] Test 00:00:00 neoplasm of breast Medical C enter (procedure) [code = 042070422] Future Scheduled 2021-05-[address] [facility] Test 00:00:00 2) [code = SHINGLES [facility] Center VACCINES (1 of 2)] Future Scheduled 2019 SHINGLES VACCINES ([address] [facility] Test 00:00:00 2) [code = SHINGLES [facility] Center VACCINES (1 of 2)] Future Scheduled 2019 SHINGLES VACCINES ([address] [facility] Test 00:00:00 2) [facility] Future Scheduled 2019 SHINGLES VACCINES ([address] [facility] Test 00:00:00 2) [code = [facility] VACCINES (1 of 2)] Future Scheduled 2014 Lipid panel (procedure) [facility] Test 00:00:00 [code = 59287057] Medical Ce nter Future Scheduled 2014 Lipid panel (procedure) [facility] Test 00:00:00 [code = 81236783] Medical Ce nter Future Scheduled 2014 Lipid panel (procedure) [facility] Test 00:00:00 [code = 74581234] Medical Ce nter Future Scheduled 2014 Lipid panel (procedure) [facility] Test 00:00:00 [code = 62301385] Medical Ce nter Future Scheduled 1990 Screening for malignant [facility] Test 00:00:00 neoplasm of cervix Medical C enter (procedure) [code = 476760963] Future Scheduled 1990 Screening for malignant [facility] Test 00:00:00 neoplasm of cervix Medical C enter (procedure) [code = 284862819] Future Scheduled 1990 Screening for malignant [facility] Test 00:00:00 neoplasm of cervix Medical C enter (procedure) [code = 885497477] Future Scheduled 1990 Screening for malignant [facility] Test 00:00:00 neoplasm of cervix Medical C enter (procedure) [code = 369033021] Future Scheduled 1988-02-20 DTAP/TDAP/TD VACCINES CH I [...] HEPATITIS C Medical Center SCREENING] Future Scheduled [address] [facility] Test 00:00:00 Counseling and Medical Cente r Screening (12+) [code = Tobacco Cessation Counseling and Screening (12+)] Future Scheduled 1969 COVID-19 VACCINE (#1) [facility] [...] [facility]ukes Test 00:00:00 [code = CT Colonography [facility] (combo)] Future Scheduled 1969 Screening for malignant [facility] Test 00:00:00 neoplasm of colon Medical Ce nter (procedure) [code = 340582872] Future Scheduled 1969 Screening for malignant [facility] Test 00:00:00 neoplasm of colon Medical Ce nter (procedure) [code = 438262755] Future Scheduled 1969 Screening for malignant [facility] Test 00:00:00 neoplasm of colon Medical Ce nter (procedure) [code = 587828833] Future Scheduled 1969 Screening for malignant [facility] Test 00:00:00 neoplasm of colon Medical Ce nter (procedure) [code = 753986216] Future Scheduled 1970 Sigmoidoscopy [code = [facility] S[facility]oscopy] Medical Cente r Future Scheduled 1969 CT Colonography (combo) [facility] Test 00:00:00 [code = CT Colonography [facility] (combo)] Future Scheduled 1969 Screening for malignant [facility] Test 00:00:00 neoplasm of colon Medical Ce nter (procedure) [code = 807330167] Future Scheduled 1969 Screening for malignant [facility] Test 00:00:00 neoplasm of colon Medical Ce nter (procedure) [code = 707879275] Future Scheduled 1969 Screening for malignant [facility] Test 00:00:00 neoplasm of colon Medical Ce nter (procedure) [code = 999859772] Future Scheduled 1969 Screening for malignant [facility] Test 00:00:00 neoplasm of colon Medical Ce nter (procedure) [code = 580630257] Future Scheduled 1969 Sigmoidoscopy [code = [facility] S[facility]oidoscopy] Medical Cente r Future Scheduled 1969 CT Colonography (combo) [facility] Test 00:00:00 [code = CT Colonography [facility] Center (combo)] Future Scheduled 1969 Screening for malignant [facility] Test 00:00:00 neoplasm of colon Medical Ce nter (procedure) [code = 514998804] Future Scheduled 1969 Screening for malignant [facility] Test 00:00:00 neoplasm of colon Medical Ce nter (procedure) [code = 461010168] Future Scheduled 1969 Screening for malignant [facility] Test 00:00:00 neoplasm of colon Medical Ce nter (procedure) [code = 901545188] Future Scheduled 1969 Screening for malignant [facility] Test 00:00:00 neoplasm of colon Medical Ce nter (procedure) [code = 507253987] Future Scheduled 1969 Sigmoidoscopy [code = [facility] 00:00:00 S[facility]oidoscopy] Medical Cente r Future Scheduled 1969 CT Colonography (combo) [facility] Test 00:00:00 [code = CT Colonography [facility] (combo)] Future Scheduled 1969 Screening for malignant [facility] Test 00:00:00 neoplasm of colon Medical Ce nter (procedure) [code = 710974588] Future Scheduled 1969 Screening for malignant [facility] Test 00:00:00 neoplasm of colon Medical Ce nter (procedure) [code = 153395102] Future Scheduled 1969 Screening for malignant [facility] Test 00:00:00 neoplasm of colon Medical Ce nter (procedure) [code = 496542128] Future Scheduled 1969 Screening for malignant [facility] Test 00:00:00 neoplasm of colon Medical Ce nter (procedure) [code = 773880178] Future Scheduled 1970 Sigmoidoscopy [code = [facility] S[facility]oscopy] Medical Cente r Goal Plan of Care Note [code = 33591-7] Goal Plan of Care Note [code = 15362-8] Goal Plan of Care Note [code = 18175-7] Goal Plan of Care Note [code = 31575-2] Goal Plan of Care Note [code = 79649-7] Goal Plan of Care Note [code = 94549-3] Goal Plan of Care Note [code = 36872-9] Goal Plan of Care Note [code = 95339-0] Goal Plan of Care Note [code = 55960-2] Goal Plan of Care Note [code = 56536-9] Goal Plan of Care Note [code = 18419-8] Goal Plan of Care Note [code = 52042-4] Goal Plan of Care Note [code = 33120-8] Encounters Start End Encounter Admission Attending Care Care Encounter Source Date/Time Date/Time Type Type Clinicians Facility Department ID 2022-04-02 2022-04-[address] [facility] [id number] [place] 10:00:27 10:00:27 [id number] F Jesse 2022-04-02 2022-04-02 Outpatient [id number] 00:00:00 00:00:00 Visit [id number] 2022-02-16 2022-02-22 [facility] [id number] 08:59:00 13:33:00 Encounter Clinton Carpenter [facility] 2022-02-16 2022-02-22 Inpatient ER [facility] [id number] [facility] 08:59:00 13:33:00 , [facility] 2022-02-16 2022-02-22 [facility] Ara [facility] [id number] 08:59:00 13:33:00 Encounter Clinton Carpenter [facility] 2022-02-17 2022-02-17 Outpatient [facility] [id number] [address] [place] [address] 00:00:00 23:59:00 Roxie 2022-02-17 2022-02-[address] [facility] [id number] 00:00:00 00:00:00 Only [facility] 2022-02-17 2022-02-[address] [facility] [id number] 00:00:00 00:00:00 [facility] 2022-02-16 2022-02-[address] [facility] [id number] 00:00:00 00:00:00 Ara Conte [facility] 2022-02-16 2022-02-[address] [facility] [id number] 00:[facility]00 00:00:00 [facility] Results Test Description Test Time Test Comments Results Result Comments Source POC-Glucose meter 2022-02-22 10:51:30 Test Item Value Reference Range Interpretation Comme nts POC-Glucose Meter (test code = 114 mg/dL 70-110 H : TESTED AT [facility] [address] [place] 1538) [facility], [facility] 30: Editor At Large/Techni lorna ID = [id number] for STEPHEN -Michelet, [place] Lab Interpretation (test code = Abnormal 16163-6) [facility]-Glucose [id number] 10:51:30 Test Item Value Reference Range Interpretation Comments POC-Glucose Meter (test 114 mg/dL 70-110 H : TE STED AT [facility] code = 1538) [address] [place] [address], [facility] 30: Editor At Large/Techni lorna ID = [id number] for STEPHEN -Michelet, [place] Lab Interpretation (test Abnormal code = 19564-8) [facility] [id number] 10:51:30 Test Item Value Reference Range Interpretation Comments POC-Glucose Meter (test 114 mg/dL 70-110 H : TE STED AT [facility] code = 1538) [address] [place] [address], [facility] 30: Editor At Large/Techni lorna ID = [id number] for STEPHEN -Michelet, [place] Lab Interpretation (test Abnormal code = 97330-8) [facility]-Glucose [id number] 10:51:30 Test Item Value Reference Range Interpretation Comments POC-Glucose Meter (test 114 mg/dL 70-110 H : TE STED AT [facility] code = 1538) [address] [place] [address], [facility] 30: Editor At Large/Techni lorna ID = [id number] for STEPHEN -Michelet, LATANDRI[place] Lab Interpretation (test Abnormal code = 98933-5) [facility]-GLUCOSE [id number] 10:51:30 Test Item Value Reference Range Interpretation Comments POC-GLUCOSE METER 114 mg/dL 70-110 H : TESTED A T [facility] (BEAKER) (test code [facility], = 1538) 65593: Editor At Large/Techni lorna ID = [id number] for BRANDT Rodriguez DOUGLAS POCT-GLUCOSE [id number] 08:00:51 Test Item Value Reference Range Interpretation Comments POC-GLUCOSE METER 108 mg/dL 70-110 : TESTED A T [facility] 6720 (BEAKER) (test code [facility], = 1538) 48149: Editor At Large/Techni lorna ID = [id number] for BRANDT Rodriguez BASIC METABOLIC [id number] 04:58:14 Test Item Value Reference Range Interpretation [...] not appl icable for dialysis patien ts Editor At Large ID - PIAYA LPOCT-GLUCOSE [id number] 23:40:04 Test Item Value Reference Range Interpretation Comments POC-GLUCOSE METER 122 mg/dL 70-110 H : TESTED A T [facility] 6720 (BEAKER) (test code = PRIETO Surinder [facility], 1538) 65263: Editor At Large/Techni lorna ID = [id number] for BRAD FAN POCT-GLUCOSE [id number] 16:33:39 Test Item Value Reference Range Interpretation Comments POC-GLUCOSE METER 85 mg/dL 70-110 : TESTED A T [facility] 6720 (BEAKER) ([facility] 78137: Editor At Large/Techni lorna ID = [id number] for BRANDT Rodriguez DOUGLAS BLOOD [id number] 16:00:53 Test Item Value Reference Range Interpretation Comments CULTURE (BEAKER) (test No growth in 5 days code = 1095) BLOOD [id number] 15:00:51 Test Item Value Reference Range Interpretation Comments CULTURE (BEAKER) (test No growth in 5 days code = 1095) POCT-GLUCOSE [id number] 11:40:47 Test Item Value Reference Range Interpretation Comments POC-GLUCOSE METER 235 mg/dL 70-110 H : TESTED A T [facility] 6720 (BEAKER) (test code [facility], = 1538) 66913: Editor At Large/Techni lorna ID = [id number] for TYE Murry -BRANDT Tafoya DOUGLAS POCT-GLUCOSE [id number] 07:50:40 Test Item Value Reference Range Interpretation Comments POC-GLUCOSE METER 211 mg/dL 70-110 H : TESTED A T [facility] 6720 (BEAKER) (test code [facility], = 1538) 40942: Editor At Large/Techni lorna ID = [id number] for BRANDT Rodriguez DOUGLAS BASIC METABOLIC [id number] 05:05:15 Test Item Value Reference Range Interpretation [...] H (BEAKER) (test code = 652) CALCIUM (BEATRIZ) 7.9 mg/dL 8.4-10.2 L (test code = 697) EGFR (BEATRIZ) 39 Interpretatio n of eGFR (test code [...] not appl icable for dialysis patien ts Editor At Large ID - ALONZO WPOCT-GLUCOSE [id number] 00:28:41 Test Item Value Reference Range Interpretation Comments POC-GLUCOSE METER 344 mg/dL 70-110 H : TESTED A T [facility] (BEATRIZ) (test code = PRIETO Cadena [facility], 1538) 81459: Editor At Large/Techni lorna ID = [id number] for Elva Tsang MR, SPINE, CERVICAL, [id number] 21:04:00Unlisted Reason for Exam - Click Yes and Enter Reason Below->YesUnlisted Reason for Exam->questionable C3 marrow lesion, eval for causes [facility] : 1970 Sex: FFINAL REPORT [...] imaging within one-month recommended. Signed: Terrell Boyd MDReport Verified Date/Time: 02/20/2022 21:04:09 RAD, CHEST, 1 VIEW, NON [id number] 16:24:00CXR on 02/16 revealed: There is a linear radiodensity projecting over the LEFT lower chest that is most likely external to the patient but correlation with any recent invasive procedures is suggested.Reason for exam:->FB chestReason for exam:->INKER to r/o FB. Please see CXR 02/16Should this be performed at the bedside?->Yes [facility] : 1970 Sex: FFINAL REPORT Chest, one view. HISTORY: FB chestCSR to r/o FB. Please see CXR 02/16 COMPARISON: Radiograph from 02/16/2022 IMPRESSION: The previously seen linear opacity of the left chest is no longer present. Interval removal of the NG tube. The lungs are clear. No pleural effusion or pneumothorax. The cardiac silhouette is unchanged in size. No acute bone abnormality. Cholecystectomy clips over the right upper quadrant. Signed: Pauly Gay MDReport Verified Date/Time: 02/20/2022 16:24:33 POCT-GLUCOSE [id number] 13:02:48 Test Item Value Reference Range Interpretation Comments POC-GLUCOSE METER 200 mg/dL 70-110 H : TESTED A T [facility] 67[facility] (BEAKER) (test code [facility], = 1538) 52407: Editor At Large/Techni lorna ID = [id number] for TYE Murry BRANDT Cullen DOUGLAS [id number] 07:26:31 Test Item Value Reference Range Interpretation Comments MAGNESIUM (BEAKER) (test code = 1.9 mg/dL 1.6-2.6 627) Editor At Large ID - [id number] 07:26:31 Test Item Value Reference Range Interpretation Comments PHOSPHORUS (BEAKER) (test code = 3.1 mg/dL 2.3-4.7 604) Editor At Large ID - BSCOMPREHENSIVE METABOLIC [id number] 07:26:30 Test Item Value Reference Range Interpretation [...] not appl icable for dialysis patien ts Editor At Large ID - BSCBC W/PLT COUNT & AUTO [id number] 06:55:28 Test Item Value Reference Range Interpretation [...] PERCENT (BEAKER) (test code = 2801) POCT-GLUCOSE [id number] 18:22:38 Test Item Value Reference Range Interpretation Comments POC-GLUCOSE METER 159 mg/dL 70-110 H : TESTED A T [facility] 6720 (BEAKER) (test code = [facility], 1538) 63712: Editor At Large/Techni lorna ID = [id number] for ALLEN WU POCT-GLUCOSE [id number] 16:27:46 Test Item Value Reference Range Interpretation Comments POC-GLUCOSE METER 165 mg/dL 70-110 H : TESTED A T [facility] 6720 (BEAKER) (test code [facility], = 1538) 11166: Editor At Large/Techni lorna ID = [id number] for Dianna sage (contract), Cori nubia VITAMIN D, [id number] 14:54:47 Test Item Value Reference Range Interpretation Comments VITAMIN D 25-OH (AKER) (test code 8.3 ng/mL 6.6-49.9 = 2764) Effective 03/06/2017: Reference Range ChangeNew: 6.6-49.9 ng/mL Previous: 13.0- 47.8 ng/mLRecommendedVitamin D Target Range: 30.0-40.0 ng/mLOperator ID - CONNIE DPOCT-GLUCOSE [id number] 12:56:46 Test Item Value Reference Range Interpretation Comments POC-GLUCOSE METER 199 mg/dL 70-110 H : TESTED A T [facility] 6720 (BEAKER) (test code [facility], = 1538) 13960: Editor At Large/Techni lorna ID = [id number] for Dianna sigmo (contract), Cori nubia POCT-GLUCOSE [id number] 08:25:06 Test Item Value Reference Range Interpretation Comments POC-GLUCOSE METER 109 mg/dL 70-110 : TESTED A T [facility] 6720 (BEAKER) (test code [facility], = 1538) 40029: Editor At Large/Techni lorna ID = [id number] for Dianna sigan (contract), Cori nubia PTH, [id number] 03:05:59 Test Item Value Reference Range Interpretation Comments PARATHYROID HORMONE INTACT 176.0 pg/mL 8.5-72.5 H (BEAKER) (test code = 577) Editor At Large ID - LENY [id number] 03:01:19 Test Item Value Reference Range Interpretation Comments MAGNESIUM (BEAKER) (test code = 2.0 mg/dL 1.6-2.6 627) Editor At Large ID - LENY [id number] 03:01:19 Test Item Value Reference Range Interpretation Comments PHOSPHORUS (BEAKER) (test code = 3.3 mg/dL 2.3-4.7 604) Editor At Large ID - LENY LCOMPREHENSIVE METABOLIC [id number] 03:01:18 Test Item Value Reference Range Interpretation [...] not appl icable for dialysis patien ts Editor At Large ID - PIAYA LCBC W/PLT COUNT & AUTO [id number] 02:49:55 Test Item Value Reference Range Interpretation [...] PERCENT (BEAKER) (test code = 2801) POCT-GLUCOSE [id number] 22:13:25 Test Item Value Reference Range Interpretation Comments POC-GLUCOSE METER 126 mg/dL 70-110 H : TESTED A T [facility] 6720 (BEAKER) (test code = [facility], 1538) 94793: Editor At Large/Techni lorna ID = [id number] for Nm eribe, Glory POCT-GLUCOSE [id number] 17:43:00 Test Item Value Reference Range Interpretation Comments POC-GLUCOSE METER 182 mg/dL 70-110 H : TESTED A T [facility] 6720 (BEAKER) (test code = [facility], 1538) 13367: Editor At Large/Techni lorna ID = [id number] for Ok oroafor, [place] POCT-GLUCOSE [id number] 13:13:29 Test Item Value Reference Range Interpretation Comments POC-GLUCOSE METER 129 mg/dL 70-110 H : TESTED A T [facility] 6720 (BEAKER) (test code = [facility], 1538) 30440: Editor At Large/Techni lorna ID = [id number] for Ok oroafor, [place] 2D Echo W/Doppler(CW/PW/Color)2022-02-18 12:43:42Ejection FractionSLEH [facility]CHO [facility] W[facility]Doppler(CW/PW/Color)2022-02-18 12:43:42Ejection FractionSLEH ECHO HEARTLAB [facility] Echo W/Doppler(CW/PW/Color) 2022-02-18 12:43:42Ejection FractionSLEH ECHO [facility]ART[facility] W/Doppler(CW/PW/Color)2022-02-18 12:43:42Ejection FractionSLEH ECHO HEARTLAB [facility] 2022-02-18 12:11:08 Test Item Value Reference Range Interpretation Comments Result (test code = 6463-4) No MRSA isolated [facility] [id number] 12:11:08 Test Item Value Reference Range Interpretation Comments Result (test code = 6463-4) No MRSA isolated [facility] [id number] 12:11:08 Test Item Value Reference Range Interpretation Comments Result (test code = 6463-4) No MRSA isolated [facility] [id number] 12:11:08 Test Item Value Reference Range Interpretation Comments Result (test code = 6463-4) No MRSA isolated [facility] [id number] 12:11:08 Test Item Value Reference Range Interpretation Comments CULTURE (BEAKER) (test code No MRSA isolated = 1095) POCT-GLUCOSE [id number] 09:36:58 Test Item Value Reference Range Interpretation Comments POC-GLUCOSE METER 148 mg/dL 70-110 H : TESTED A T [facility] (BEAKER) (test code = [facility] [place], 1538) 76117: Editor At Large/Techni lorna ID = [id number] for Ok oroafor, [place] U/S, RENAL, [id number] 09:06:00Reason for exam:->[facility] : 1970 Sex: FFINAL REPORT [...] suggestive of renal parenchymal disease. Signed: Christo Brunner MDReport Verified Date/Time: 02/18/2022 09:06:30 Reading Location: [facility] C013Y CT Body Reading Room POCT-GLUCOSE [id number] 05:45:20 Test Item Value Reference Range Interpretation Comments POC-GLUCOSE METER 124 mg/dL 70-110 H : TESTED A T [facility] 67[facility] (BEAKER) (test code = PRIETO Cadena [facility], 1538) 21252: Editor At Large/Techni lorna ID = [id number] for Lisa Aj COMPREHENSIVE METABOLIC [id number] 05:39:23 Test Item Value Reference Range Interpretation [...] not appl icable for dialysis patien ts Editor At Large ID Shree MICHELE [id number] 04:49:24 Test Item Value Reference Range Interpretation Comments MAGNESIUM (BEAKER) (test code = 2.0 mg/dL 1.6-2.6 627) Editor At Large MICHAEL MICHELE [id number] 04:49:24 Test Item Value Reference Range Interpretation Comments PHOSPHORUS (BEAKER) (test code = 3.1 mg/dL 2.3-4.7 604) Editor At Large MICHAEL MICHELE LCBC W/PLT COUNT & AUTO [id number] 04:26:28 Test Item Value Reference Range Interpretation [...] PERCENT (BEAKER) (test code = 2801) POCT-GLUCOSE [id number] 23:04:45 Test Item Value Reference Range Interpretation Comments POC-GLUCOSE METER 165 mg/dL 70-110 H : TESTED Sharon Conte [facility] (BEAKER) (test code = [facility] [place], 1538) 74177: Editor At Large/Techni lorna ID = [id number] for [place] T4, [id number] 18:45:38 Test Item Value Reference Range Interpretation Comments FREE T4 (BEAKER) (test code = 655) 1.07 ng/dL 0.70-1.48 Editor At Large ID - LINDEN MPOCT-GLUCOSE [id number] 18:38:50 Test Item Value Reference Range Interpretation Comments POC-GLUCOSE METER 177 mg/dL 70-110 H : TESTED A T 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 Signed: Elizabeth Byrnesort Verified Date/Time: 02/17/2022 18:25:45 TSH/FREE T4 IF [id number] 18:06:03 Test Item Value Reference Range Interpretation Comments THYROID STIMULATING HORMONE 0.234 uIU/mL 0.350-4.940 L (BEAKER) (test code = 772) Editor At Large ID - LINDEN MPOCT-GLUCOSE [id number] 16:40:45 Test Item Value Reference Range Interpretation Comments POC-GLUCOSE METER 160 mg/dL 70-110 H : TESTED A T [facility] 6720 (BEAKER) (test code [facility], = 1538) 84022: Editor At Large/Techni lorna ID = [id number] for Tori uwendy (contract), Nne ka POCT-GLUCOSE [id number] 15:26:11 Test Item Value Reference Range Interpretation Comments POC-GLUCOSE METER 76 mg/dL 70-110 : TESTED A T [facility] 6720 (BEAKER) (test code = [facility], 1538) 75429: Editor At Large/Techni lorna ID = [id number] for Connor Roque POCT-GLUCOSE [id number] 14:21:45 Test Item Value Reference Range Interpretation Comments POC-GLUCOSE METER 108 mg/dL 70-110 : TESTED A T [facility] 6720 (BEAKER) (test code [facility], = 1538) 01107: Editor At Large/Techni lorna ID = [id number] for Tori uomje (contract), Nne ka POCT-GLUCOSE [id number] 13:29:26 Test Item Value Reference Range Interpretation Comments POC-GLUCOSE METER 73 mg/dL 70-110 : TESTED A T [facility] 6720 (BEAKER) (test code = [facility], 1538) 49743: Editor At Large/Techni lorna ID = [id number] for Tori uomje (contract), Nne ka BASIC METABOLIC [id number] 13:27:42 Test Item Value Reference Range Interpretation [...] not appl icable for dialysis patien ts Editor At Large ID - LINDEN [id number] 12:16:33 Test Item Value Reference Range Interpretation Comments MAGNESIUM (BEAKER) (test code = 1.8 mg/dL 1.6-2.6 627) Editor At Large ID - LINDEN [id number] 12:16:33 Test Item Value Reference Range Interpretation Comments PHOSPHORUS (BEAKER) (test code = 2.2 mg/dL 2.3-4.7 L 604) Editor At Large ID - LINDEN MPOCT-GLUCOSE [id number] 11:47:53 Test Item Value Reference Range Interpretation Comments POC-GLUCOSE METER 108 mg/dL 70-110 : TESTED A T [facility] (BEAKER) (test code [facility], = 1538) 19991: Editor At Large/Techni lorna ID = [id number] for Tori reyes (contract), Nne ka HEMOGLOBIN [id number] 10:38:53 Test Item Value Reference Range Interpretation Comments HEMOGLOBIN A1C 10.9 % See_Comment H [Automated m essage] ELECTROPHORESIS (BEAKER) The system which (test code = 3811) generated this result transmitted ref erence range: <=5.6%. The reference range was not used to int erpret this result as normal/abnormal . "The A1c is measured using a [facility]-certified method. HbA1c value equal to or greater than 6.5% as thediagnosis cutoff for diabetes. An HbA1c value of 5.7- 6.4% indicates increased risk for diabetes (prediabetes)."Editor At Large ID - ADMPOCT- GLUCOSE [id number] 10:16:09 Test Item Value Reference Range Interpretation Comments POC-GLUCOSE METER 160 mg/dL 70-110 H : TESTED A T [facility] (BEAKER) (test [facility], = 1538) 15647: Editor At Large/Techni lorna ID = [id number] for Tori reyes (contract), [facility] BASIC METABOLIC [id number] 10:02:11 Test Item Value Reference Range Interpretation [...] G3b Moderately to s everely 30-44 G4 Sever ly decreased 15-29 G5 Kidney failure <15Repo rted eGFR is based on the CKD-EPI 2020 equation t hat does not use a race coefficientEsti mated GFR is not as accur ate as Creatinine Adriana corona in predicting glom erular filtration rate . Estimated GFR is not appl icable for dialysis patien ts Editor At Large ID - LIDNEN MPOCT-GLUCOSE [id number] 09:12:51 Test Item Value Reference Range Interpretation Comments POC-GLUCOSE METER 203 mg/dL 70-110 H : TESTED A T [facility] 6720 (BEAKER) (test code = [facility] Surinder [facility], 1538) 05232: Editor At Large/Techni lorna ID = [id number] for Ok oroafor, [place] POCT-GLUCOSE [id number] 08:24:37 Test Item Value Reference Range Interpretation Comments POC-GLUCOSE METER 185 mg/dL 70-110 H : TESTED A T [facility] 6720 (BEAKER) (test code = [facility], 1538) 81677: Editor At Large/Techni lorna ID = [id number] for Ok oroafor, [place] BASIC METABOLIC [id number] 06:50:10 Test Item Value Reference Range Interpretation [...] not appl icable for dialysis patien ts Editor At Large ID - LINDEN MPOCT-GLUCOSE [id number] 05:33:55 Test Item Value Reference Range Interpretation Comments POC-GLUCOSE METER 166 mg/dL 70-110 H : TESTED A T [facility] (BEAKER) (test code [facility], = 1538) 38697: Editor At Large/Techni lorna ID = [id number] for SUGU , SHEENAMOL CBC W/PLT COUNT & AUTO [id number] 04:40:04 Test Item Value Reference Range Interpretation [...] (BEAKER) (test code = 2801) COMPREHENSIVE METABOLIC [id number] 04:25:06 Test Item Value Reference Range Interpretation [...] not appl icable for dialysis patien ts Editor At Large ID - LINDEN [id number] 04:18:46 Test Item Value Reference Range Interpretation Comments PHOSPHORUS (BEAKER) (test code = 1.8 mg/dL 2.3-4.7 L 604) Editor At Large ID - LINDEN [id number] 04:18:45 Test Item Value Reference Range Interpretation Comments MAGNESIUM (BEAKER) (test code = 1.3 mg/dL 1.6-2.6 L 627) Editor At Large ID - LINDEN MPOCT-GLUCOSE [id number] 03:06:33 Test Item Value Reference Range Interpretation Comments POC-GLUCOSE METER 187 mg/dL 70-110 H : TESTED A T [facility] (BEAKER) (test code = PRIETO Cadena [facility], 1538) 90240: Editor At Large/Techni lorna ID = [id number] for Al i, Annemarie BASIC METABOLIC [id number] 02:20:38 Test Item Value Reference Range Interpretation [...] not appl icable for dialysis patien ts Editor At Large ID - LINDEN MPOCT-GLUCOSE [id number] 01:41:42 Test Item Value Reference Range Interpretation Comments POC-GLUCOSE METER 191 mg/dL 70-110 H : TESTED A T [facility] 6720 (BEAKER) (test code [facility], = 1538) 22339: Editor At Large/Techni lorna ID = [id number] for SUGU , SHEENAMOL POCT-GLUCOSE [id number] 00:11:09 Test Item Value Reference Range Interpretation Comments POC-GLUCOSE METER 147 mg/dL 70-110 H : TESTED A T [facility] 6720 (BEAKER) (test code = PRIETO Cadena [facility], 1538) 02114: Editor At Large/Techni lorna ID = [id number] for Al i, Annemarie RAD, ABDOMEN/KUB, 1 VIEW [id number] 22:52:00Reason for exam:->NGT placementShould this be performed at the bedside?->Yes [facility] : 1970 Sex: FFINAL REPORT Supine abdomen 02/16/2022 HISTORY: NG tube placement. IMPRESSION: NG tube in place with the tip projecting over the distal stomach or proximal duodenum. There is a linear radiodensity projecting over the lower esophagus most likely external to the patient. Signed: Elva Singh MDReport Verified Date/Time: 02/16/2022 22:52:54 Electronically signed by: ELVA SINGH MD on02/16/2022 10:52 PMPOCT-GLUCOSE [id number] 22:29:37 Test Item Value Reference Range Interpretation Comments POC-GLUCOSE METER 144 mg/dL 70-110 H : TESTED A T [facility] (BEAKER) (test code = PRIETO Surinder [facility], 1538) 53644: Editor At Large/Techni lorna ID = [id number] for Al i, Annemarie RAD, CHEST, 1 VIEW, NON [id number] 22:12:00Reason for exam:->eval lung fieldsShould this be performed at the bedside?->Yes [facility] : 1970 Sex: FFINAL REPORT PORTABLE AP [...] consolidation, effusion or pneumothorax. Signed: Elva Singh MDReport Verified Date/Time: 02/16/2022 22:12:53 Blood gas, [id number] 21:52:37 Test Item Value Reference Range Interpretation Comments pH, Arterial (test code 7.37 7.35-7.45 = 2744-1) pCO2, Arterial (test 53 See_Comment H [Autom ated message] code = 2018-12) The system [employer] generated this result transmit amina reference range : 35 - 45 mm Hg. The reference range was not used to interpret this result as normal/abnormal . pO2, Arterial (test 120 See_Comment H [Automa amina message] code = 2703-7) The system [employer] generated this result transmit amina reference range [...] 32 Lab Interpretation Abnormal (test code = 85892-1) [facility] [id number] 21:52:37 Test Item Value Reference Range Interpretation Comments pH, Arterial (test code 7.37 7.35-7.45 = 2744-1) pCO2, Arterial (test 53 See_Comment H [Autom ated message] code = 2018-12) The system [employer] generated this result transmit amina reference range : 35 - 45 mm Hg. The reference range was not used to interpret this result as normal/abnormal . pO2, Arterial (test 120 See_Comment H [Automa amina message] code = 2703-7) The system [employer] generated this result transmit amina reference range [...] 32 Lab Interpretation Abnormal (test code = 23273-4) [facility], [id number] 21:52:37 Test Item Value Reference Range Interpretation Comments pH, Arterial (test code 7.37 7.35-7.45 = 2744-1) pCO2, Arterial (test 53 See_Comment H [Autom ated message] code = 2019-) The system [employer] generated this result transmit amina reference range : 35 - 45 mm Hg. The reference range was not used to interpret this result as normal/abnormal . pO2, Arterial (test 120 See_Comment H [Automa amina message] code = 2703-7) The system [employer] generated this result transmit amina reference range [...] 32 Lab Interpretation Abnormal (test code = 72550-6) [facility], [id number] 21:52:37 Test Item Value Reference Range Interpretation Comments pH, Arterial (test code 7.37 7.35-7.45 = 2744-1) pCO2, Arterial (test 53 See_Comment H [Autom ated message] code = 2019-) The system [employer] generated this result transmit amina reference range : 35 - 45 mm Hg. The reference range was not used to interpret this result as normal/abnormal . pO2, Arterial (test 120 See_Comment H [Automa amina message] code = 2703-7) The system [facility] generated this result transmit amina reference range [...] 32 Lab Interpretation Abnormal (test code = 34899-4) [facility] Center[facility], [id number] 21:52:37 Test Item Value Reference Range Interpretation [...] (BEAKER) (test code = 1819) 32.0 KETONE, [id number] 21:38:46 Test Item Value Reference Range Interpretation Comments KETONES, BLOOD (BEAKER) (test code 0.9 mmol/L <0.4 H = 1103) POCT-GLUCOSE [id number] 21:19:53 Test Item Value Reference Range Interpretation Comments POC-GLUCOSE METER 173 mg/dL 70-110 H : TESTED A T [facility] (BEAKER) (test code = [facility]IETO MICHAUD, 1538) 61741: Editor At Large/Techni lorna ID = [id number] for Annemarie Matias i SARS-CoV2/RT-PCR (Symptomatic ONLY)2022-02-16 21:03:01 Test Item Value Reference Range Interpretation Comments SARS-COV2/RT-PCR Negative Negative (test code = 75753-9) SARS-COV-[address] [facility] (test code = 52617-6) JYOTI (test code = JYOTI) Endogenous inhibition of PCR was detected in [...] of the Act. Fact Sheet for Healthcare Providers:https://www.ClipCard/sites/default/f colt/product/documents/F act_Sheet_HC_Providers_L vuw_PGLK-KpM-8.pdf Fact Sheet for Healthcare Patients:https://www.Haxiu.com/sites/default/fi les/product/documents/Fa ct_Sheet_Patients_Lyra_S ARS-CoV-2.pdf Performing Laboratory:[facility]ARS-CoV2/RT-PCR (Symptomatic ONLY)2022-02-16 21:03:01 Test Item Value Reference Range Interpretation Comments SARS-COV2/RT-PCR Negative Negative (test code = 95945-6) SARS-COV-[address] [facility] (test code = 10150-2) JYOTI (test code = JYOTI) Endogenous inhibition of PCR was detected in [...] of the Act. Fact Sheet for Healthcare Providers:https://www.ClipCard/sites/default/f colt/product/documents/F act_Sheet_HC_Providers_L bsg_LXPI-TmF-3.pdf Fact Sheet for Healthcare Patients:https://www.Haxiu.com/sites/default/fi les/product/documents/Fa ct_Sheet_Patients_Lyra_S ARS-CoV-2.pdf Performing Laboratory:[facility] [place] [address] [facility]2022-02-16 21:03:01 Test Item Value Reference Range Interpretation Comments SARS-COV2/RT-PCR Negative Negative (test code = 46802-8) SARS-COV-[address] [facility] (test code = 50357-9) JYOTI (test code = JYOTI) Endogenous inhibition of PCR was detected in [...] of the Act. Fact Sheet for Healthcare Providers:https://www.ClipCard/sites/default/f colt/product/documents/F act_Sheet_HC_Providers_L wgg_LZYO-XnF-5.pdf Fact Sheet for Healthcare Patients:https://www.Haxiu.com/sites/default/fi les/product/documents/Fa ct_Sheet_Patients_Lyra_S ARS-CoV-2.pdf Performing Laboratory:[facility] [place] [address] [facility]pt[facility]2022-02-16 21:03:01 Test Item Value Reference Range Interpretation Comments SARS-COV2/RT-PCR Negative Negative (test code = 35976-6) SARS-COV-[address] [facility] (test code = 51977-8) JYOTI (test code = JYOTI) Endogenous inhibition of PCR was detected in [...] of the Act. Fact Sheet for Healthcare Providers:https://www.ClipCard/sites/default/f colt/product/documents/F act_Sheet_HC_Providers_L qma_HVQP-PyA-0.pdf Fact Sheet for Healthcare Patients:https://www.Haxiu.com/sites/default/fi les/product/documents/Fa ct_Sheet_Patients_Lyra_S ARS-CoV-2.pdf Performing Laboratory:[place] [address] [facility] [address]/RT-PCR ([facility])2022-02-16 21:03:01 Test Item Value Reference Range Interpretation Comments SARS-COV2/RT-PCR (test code = Negative Negative 1511051) SARS-COV-2 PERFORMING LAB (test [facility] code = 5410599) Endogenous inhibition of PCR was detected in [...] of the Act.Fact Sheet for Healthcare Providers:https:// www.YouGoDo/sites/default/files/product/documents/Fact_Sheet_HC_Providers_Lyr m_SKXT-KnO-5.pdfFactSheet for Healthcare Patients:https://www.YouGoDo/sites/default/files/product/documents/Fact_Sheet _Wsmovzdv_Lnph_ZFXV-YyJ-0.pdfPerforming Laboratory:[address], [place] [address]ODXWX METABOLIC [id number] 20:51:36 Test Item Value Reference Range Interpretation [...] not appl icable for dialysis patien ts Editor At Large ID - BSPOCT-GLUCOSE [id number] 20:33:13 Test Item Value Reference Range Interpretation Comments POC-GLUCOSE METER 127 mg/dL 70-110 H : TESTED A T [facility] 6720 (BEAKER) (test code = Huxiu[employer]PORSHA [employer] [facility], 1538) [address]: Editor At Large/Techni lorna ID = [id number] for Al i, Annemarie POCT-GLUCOSE [id number] 18:17:32 Test Item Value Reference Range Interpretation Comments POC-GLUCOSE METER 210 mg/dL 70-110 H : TESTED A T [facility] 6720 (BEAKER) (test code = [facility] [employer] [facility], 1538) 864[address]: Editor At Large/Techni lorna ID = [id number] for Nathalia Schroeder POCT-GLUCOSE [id number] 17:26:57 Test Item Value Reference Range Interpretation Comments POC-GLUCOSE METER 247 mg/dL 70-110 H : TESTED A T [facility] 6720 (BEAKER) (test code [facility], = 1538) 210[address]: Editor At Large/Techni lorna ID = [id number] for Nella Hendricks POCT-GLUCOSE [id number] 16:13:16 Test Item Value Reference Range Interpretation Comments POC-GLUCOSE METER 280 mg/dL 70-110 H : TESTED A T [facility] 6720 (BEAKER) (test code [facility], = 1538) 687[address]: Editor At Large/Techni lorna ID = [id number] for Rebecca rollyNella Urinalysis w/Microscopic + Reflex to [id number] 15:26:49 Test Item Value Reference Range Interpretation Comments Color, UA (test code Light Yellow = 5778-6) Clarity, UA (test Clear code = 5767-9) Specific [place], UA 1.020 1.001-1.035 (test code = 5811-5) pH, UA (test code = 6.5 5.0-8.0 5803-2) Protein, UA (test 600 mg/dL Negative A code = 81417-1) Glucose, UA (test >1000 mg/dL Negative A code = 365) Ketones, UA (test Trace Negative A code = 2514-8) Bilirubin, UA (test Negative Negative code = 84283-3) Blood, UA (test code Small Negative A = 04578-1) Nitrite, UA (test Negative Negative code = 5802-4) Leukocytes, UA (test Negative Negative code = 5799-2) Urobilinogen, UA 0.2 mg/dL 0.2-1.0 (test code = 23052-8) RBC, UA (test code = 3 See_Comment [Autom ated 27301-6) message] The system which generated this result [...] . Bacteria, UA (test Rare code = 16114-1) Mucus (test code = Rare 8247-9) Crystals, Urine (test None Seen code = 33356-3) Specimen Source (test code = 2795) JYOTI (test code = JYOTI) Editor At Large ID - [auto]Editor At Large ID - tech Lab Interpretation Abnormal (test code = 06478-0) [facility] Reflex to Culture 2022-02-16 15:26:49 Test Item Value Reference Range Interpretation Comments Color, UA (test code Light Yellow = 5778-6) Clarity, UA (test Clear code = 5767-9) Specific [place], UA 1.020 1.001-1.035 (test code = 5811-5) pH, UA (test code = 6.5 5.0-8.0 5803-2) Protein, UA (test 600 mg/dL Negative A code = 19387-1) Glucose, UA (test >1000 mg/dL Negative A code = 365) Ketones, UA (test Trace Negative A code = 2514-8) Bilirubin, UA (test Negative Negative code = 42669-3) Blood, UA (test code Small Negative A = 67447-8) Nitrite, UA (test Negative Negative code = 5802-4) Leukocytes, UA (test Negative Negative code = 5799-2) Urobilinogen, UA 0.2 mg/dL 0.2-1.0 (test code = 52253-7) RBC, UA (test code = 3 See_Comment [Autom ated 10505-0) message] The system which generated this result [...] . Bacteria, UA (test Rare code = 45978-9) Mucus (test code = Rare 8247-9) Crystals, Urine (test None Seen code = 45763-9) Specimen Source (test code = 2795) JYOTI (test code = JYOTI) Editor At Large ID - [auto]Editor At Large ID - tech Lab Interpretation Abnormal (test code = 99291-4) [facility] Reflex to Culture 2022-02-16 15:26:49 Test Item Value Reference Range Interpretation Comments Color, UA (test code Light Yellow = 5778-6) Clarity, UA (test Clear code = 5767-9) Specific [place], UA 1.020 1.001-1.035 (test code = 5811-5) pH, UA (test code = 6.5 5.0-8.0 5803-2) Protein, UA (test 600 mg/dL Negative A code = 75523-2) Glucose, UA (test >1000 mg/dL Negative A code = 365) Ketones, UA (test Trace Negative A code = 2514-8) Bilirubin, UA (test Negative Negative code = 30582-8) Blood, UA (test code Small Negative A = 12972-3) Nitrite, UA (test Negative Negative code = 5802-4) Leukocytes, UA (test Negative Negative code = 5799-2) Urobilinogen, UA 0.2 mg/dL 0.2-1.0 (test code = 81969-6) RBC, UA (test code = 3 See_Comment [Autom ated 16902-1) message] The system which generated this result [...] . Bacteria, UA (test Rare code = 78628-2) Mucus (test code = Rare 8247-9) Crystals, Urine (test None Seen code = 53555-5) Specimen Source (test code = 2795) JYOTI (test code = JYOTI) Editor At Large ID - [auto]Editor At Large ID - tech Lab Interpretation Abnormal (test code = 75217-0) [facility] Reflex to Culture 2022-02-16 15:26:49 Test Item Value Reference Range Interpretation Comments Color, UA (test code Light Yellow = 5778-6) Clarity, UA (test Clear code = 5767-9) Specific [place], UA 1.020 1.001-1.035 (test code = 5811-5) pH, UA (test code = 6.5 5.0-8.0 5803-2) Protein, UA (test 600 mg/dL Negative A code = 54474-8) Glucose, UA (test >1000 mg/dL Negative A code = 365) Ketones, UA (test Trace Negative A code = 2514-8) Bilirubin, UA (test Negative Negative code = 68899-8) Blood, UA (test code Small Negative A = 15183-9) Nitrite, UA (test Negative Negative code = 5802-4) Leukocytes, UA (test Negative Negative code = 5799-2) Urobilinogen, UA 0.2 mg/dL 0.2-1.0 (test code = 71278-9) RBC, UA (test code = 3 See_Comment [Autom ated 32409-8) message] The system which generated this result [...] . Bacteria, UA (test Rare code = 55647-6) Mucus (test code = Rare 8247-9) Crystals, Urine (test None Seen code = 81870-3) Specimen Source (test code = 2795) JYOTI (test code = JYOTI) Editor At Large ID - [auto]Editor At Large ID - tech Lab Interpretation Abnormal (test code = 53305-0) [facility]LEX URINE [id number] 15:26:49 Test Item Value Reference Range Interpretation [...] = 1521) SOURCE(BEAKER) (test code = 2795) Editor At Large ID - [auto]Editor At Large ID - techPOCT-GLUCOSE [id number] 15:14:56 Test Item Value Reference Range Interpretation Comments POC-GLUCOSE METER 271 mg/dL 70-110 H : [facility]) (test code [facility], = 1538) [address]: Editor At Large/Techni lorna ID = [id number] for Rebecca rolly, Nella POCT-GLUCOSE [id number] 14:27:23 Test Item Value Reference Range Interpretation Comments POC-GLUCOSE METER 285 mg/dL 70-110 H : [facility] ([facility]) (test code = [facility], 1538) 47370: Editor At Large/Techni lorna ID = [id number] for Ok oroafor, Letso POCT-GLUCOSE [id number] 13:36:16 Test Item Value Reference Range Interpretation Comments POC-GLUCOSE METER 342 mg/dL 70-110 H : Notified RN/MD: ([facility]) (test code = TESTED AT [facility] 67[address] 1538) [facility], [address]: Editor At Large/Techni lorna ID = [id number] for Donovan Lopezn BASIC METABOLIC [id number] 12:34:45 Test Item Value Reference Range Interpretation [...] not appl icable for dialysis patien ts Editor At Large ID - PIAYA LPOCT-GLUCOSE [id number] 12:20:08 Test Item Value Reference Range Interpretation Comments POC-GLUCOSE METER 427 mg/dL 70-110 HH : Notified RN/MD: (BEAKER) (test code = TESTED AT [facility] 1556 5376) [facility], [address]: Editor At Large/Techni lorna ID = [id number] for On agaDenise HEPATIC FUNCTION [id number] 12:11:01 Test Item Value Reference Range Interpretation [...] (test code = 13 U/L 6-55 347) Editor At Large ID Shree MICHELE LHIGH SENSITIVITY TROPONIN [id number] 12:07:22 Test Item Value Reference Range Interpretation Comments HIGH SENSITIVITY 10 pg/ml See_Comment [Automated message] TROPONIN I (test code = The system which 6697325) generated this result transmitted ref erence range: <=17. Th e reference range was not used to int erpret this result as normal/abnormal . Editor At Large ID - LENY LThe BEDSPREAD CUTTER STAT High Sensitivity Troponin-I results should be used in conjunction with other diagnostic information such as ECG, clinical observations and information, and patient symptoms to aid in the diagnosis of PA.LACTIC ACID, [id number] 12:05:20 Test Item Value Reference Range Interpretation Comments LACTATE BLOOD VENOUS (2) (BEAKER) 1.58 mmol/L 0.50-2.20 (test code = 2872) Editor At Large ID - LENY LCBC W/PLT COUNT & AUTO [id number] 11:39:33 Test Item Value Reference Range Interpretation [...] = 2801) RAD, CHEST, 1 VIEW, NON [id number] 11:03:00Reason for exam:->covid positiveGARDNER SANITARIUMName: ROCAEL SANTO : 1970 Sex: FFINAL REPORT [...] TERRELL BOYD MD on 1:03 AMPOCT- GLUCOSE [id number] 09:27:22 Test Item Value Reference Range Interpretation Comments POC-GLUCOSE METER 380 mg/dL 70-110 H : TESTED A T [facility] 6720 (BEAKER) (test code [facility], = 1538) [address]: Editor At Large/Techni lorna ID = [id number] for Nella Hendricks CBC W/AUTO [id number] 00:00:00 Test Item Value Reference Range Interpretation [...] NUCLEATED RBCS (test code = 0.00 K/UL 20465) CBC W/AUTO [id number] 00:00:00 Test Item Value Reference Range Interpretation [...] NUCLEATED RBCS (test code = 0.00 K/UL 17208) MICROALBUMIN/CREATININE, RANDOM AND [id number] 00:00:00 Test Item Value Reference Range Interpretation Comments CREATININE, URINE, CONC. (test 104.8 MG/DL code = 2072) ALBUMIN, URINE, RANDOM (test code 216.2 MG/DL = 33221) CALC ALBUMIN/CREAT, RND (test 2063 MG/G code = 94421) CBC W/AUTO [id number] 00:00:00 Test Item Value Reference Range Interpretation [...] NUCLEATED RBCS (test code = 0.00 K/UL 75546) MICROALBUMIN/CREATININE, RANDOM AND [id number] 00:00:00 Test Item Value Reference Range Interpretation Comments CREATININE, URINE, CONC. (test 104.8 MG/DL code = 2072) ALBUMIN, URINE, RANDOM (test code 216.2 MG/DL = 06626) CALC ALBUMIN/CREAT, RND (test 2063 MG/G code = 45716) HEMOGLOBIN [id number] 00:00:00 Test Item Value Reference Range Interpretation Comments HEMOGLOBIN A1c (test code = 10058) 9.5 % HEMOGLOBIN [id number] 00:00:00 Test Item Value Reference Range Interpretation Comments HEMOGLOBIN A1c (test code = 85311) 9.5 % HEMOGLOBIN [id number] 00:00:00 Test Item Value Reference Range Interpretation Comments HEMOGLOBIN A1c (test code = 21116) 9.5 % LIPID [id number] 00:00:00 Test Item Value Reference Range Interpretation Comments CHOLESTEROL (test code = 2210) 178 MG/DL TRIGLYCERIDES (test code = 2232) 97 MG/DL HDL CHOLESTEROL (test code = 2220) 68 MG/DL CALC LDL CHOL (test code = 2237) 91 MG/DL RISK RATIO LDL/HDL (test code = 1.34 RATIO 2238) LIPID [id number] 00:00:00 Test Item Value Reference Range Interpretation Comments CHOLESTEROL (test code = 2210) 178 MG/DL TRIGLYCERIDES (test code = 2232) 97 MG/DL HDL CHOLESTEROL (test code = 2220) 68 MG/DL CALC LDL CHOL (test code = 2237) 91 MG/DL RISK RATIO LDL/HDL (test code = 1.34 RATIO 2238) COMPREHENSIVE METABOLIC [id number] 00:00:00 Test Item Value Reference Range Interpretation Comments GLUCOSE (test code = 2217) 212 MG/DL BUN (test code = 2208) 33 MG/DL CREATININE (test code = 2214) 1.35 MG/DL eGFR AMER. (test code 53 ML/MIN/1.73 = 09658) eGFR NON- AMER. (test 45 ML/MIN/1.73 code = 67423) CALC BUN/CREAT (test code = 24 RATIO [...] CALC GLOBULIN (test code = 3.2 G/DL 2240) CALC A/G RATIO (test code = 1.1 RATIO 2234) BILIRUBIN, TOTAL (test code = <0.2 MG/DL 2206) ALKALINE PHOSPHATASE (test 98 U/L code = 2204) AST (test code = 2218) 13 U/L ALT (test code = 2219) 14 U/L COMPREHENSIVE METABOLIC [id number] 00:00:00 Test Item Value Reference Range Interpretation Comments GLUCOSE (test code = 2217) 212 MG/DL BUN (test code = 2208) 33 MG/DL CREATININE (test code = 2214) 1.35 MG/DL eGFR AMER. (test code 53 ML/MIN/1.73 = 57502) eGFR NON- AMER. (test 45 ML/MIN/1.73 code = 68859) CALC BUN/CREAT (test code = 24 RATIO 2235) SODIUM (test code = 2231) 141 MEQ/L POTASSIUM (test code = 2228) 4.0 MEQ/L CHLORIDE (test code = 2215) 99 MEQ/L CARBON DIOXIDE (test code = 30 MEQ/L 220) CALCIUM (test code = 2209) 9.6 MG/DL PROTEIN, TOTAL (test code = 6.7 G/DL 2228) ALBUMIN (test code = 2201) 3.5 G/DL CALC GLOBULIN (test code = 3.2 G/DL 2240) CALC A/G RATIO (test code = 1.1 RATIO 2233) BILIRUBIN, TOTAL (test code = <0.2 MG/DL 2206) ALKALINE PHOSPHATASE (test 98 U/L code = 2204) AST (test code = 2218) 13 U/L ALT (test code = 2219) 14 U/L LIVER (HEPATIC) FUNCTION [id number] 00:00:00 Test Item Value Reference Range Interpretation [...] = 2219) 14 U/L LIVER (HEPATIC) FUNCTION [id number] 00:00:00 Test Item Value Reference Range Interpretation Comments PROTEIN, TOTAL (test code = 2229) 6.7 G/DL ALBUMIN (test code = 2201) 3.5 G/DL BILIRUBIN, TOTAL (test code = <0.2 MG/DL 2206) BILIRUBIN, DIRECT (test code = <0.2 MG/DL 2021) ALKALINE PHOSPHATASE (test code = 98 U/L 2203) AST (test code = 2218) 13 U/L ALT (test code = 2219) 14 U/L [id number] 00:00:00 Test Item Value Reference Range Interpretation Comments TSH, THIRD GENERATION (test code 0.895 UIU/ML = 2821) [id number] 00:00:00 Test Item Value Reference Range Interpretation Comments TSH, THIRD GENERATION (test code 0.895 UIU/ML = 2821) [id number] 00:00:00 Test Item Value Reference Range Interpretation Comments TSH, THIRD GENERATION (test code 0.895 UIU/ML = 2821)
[2022-05-30] MEDS ORDERED: NA CHLORIDE 0.9% 1,000 ML ONE (13:12)
--- NOTE | 2022-05-30 13:47 | RAD REPORT ---
EXAM DESCRIPTION: [place] Single View05/30/2022 1:20 pm CLINICAL HISTORY: Cough COMPARISON: March 2022 FINDINGS: The lungs appear clear of acute infiltrate. The heart is normal size IMPRESSION: No acute abnormalities displayed
[2022-05-30 14:40] LABS: Absolute Lymphocytes (CBC) 2.5 K/uL (0.7-4.9); Hematocrit 34.9 % (36.0-45.0); Lymphocytes % 32.2 % (15.3-44.8); MCV 87.8 fL (80-100); MPV 8.2 fL (7.6-11.3); Protime INR 0.99; RBC Red Blood Cell Count 3.97 M/uL (3.86-4.86)
[2022-05-30 14:59] LABS: ALT/SGPT 28 U/L (13-56); AST/SGOT 26 U/L (15-37); Albumin 2.7 g/dL (3.4-5.0); Alkaline Phosphatase 88 U/L (45-117); BUN Blood Urea Nitrogen 56 mg/dL (7-18); Bicarbonate 28 mmol/L (21-32); Bilirubin Total 0.2 mg/dL (0.2-1.0); Glomerular Filtration Rate 22 ml/min (=/>90); Glucose Level 102 mg/dL (74-106); Magnesium 2.1 mg/dL (1.6-2.4); NT PRO-BNP 316 pg/mL (<125); Potassium 4.4 mmol/L (3.5-5.1); Sodium Level 139 mmol/L (136-145); Troponin High Sensitivity 6.9 pg/mL (<58.9)
[2022-05-30 15:02] LABS: Bilirubin Direct < 0.1 mg/dL (0-0.2)
[2022-05-30] MEDS ORDERED: NA CHLORIDE 0.9% 500 ML ONE (16:10)
--- NOTE | 2022-05-30 16:15 | EDPHYS ---
Physician Documentation [facility] Name: Bisi Santo Age: 52 yrs Sex: Female : 1970 Arrival Date: 05/30/2022 Time: 12:29 Bed 14 Private MD: LAMBERTO Physician Hari De La Garza HPI: 05/30 16:05 This 52 yrs old Black Female presents to ER via Ambulatory with complaints of Low Blood charlene sugar. 16:05 WEAK , HYPOGLYCEMIA. The patient presents with confusion. Onset: The symptoms/episode charlene began/occurred 2 day(s) ago. Possible causes: low blood sugar, the patient uses insulin. Associated signs and symptoms: Pertinent positives: weakness. Current symptoms: In the emergency department the patient's symptoms have improved, moderately. Severity of symptoms: At their worst the symptoms were mild moderate in the emergency department the symptoms have improved moderately. 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 - Social history:: Smoking status: Patient denies any tobacco usage or history of. - Family history:: not pertinent. ROS: 16:05 Constitutional: Negative for fever, chills, and weight loss, Eyes: Negative for injury, charlene pain, redness, and discharge, ENT: Negative for injury, pain, and discharge, Neck: Negative for injury, pain, and swelling, Cardiovascular: Negative for chest pain, palpitations, and edema, Respiratory: Negative for shortness of breath, cough, wheezing, and pleuritic chest pain, Back: Negative for injury and pain, : Negative for injury, bleeding, discharge, and swelling, MS/Extremity: Negative for injury and deformity, Skin: Negative for injury, rash, and discoloration, Neuro: Negative for headache, weakness, numbness, tingling, and seizure, Psych: Negative for depression, anxiety, suicide ideation, homicidal ideation, and hallucinations, Allergy/Immunology: Negative for hives, rash, and allergies, Hematologic/Lymphatic: Negative for swollen nodes, abnormal bleeding, and unusual bruising. 16:05 Abdomen/GI: Positive for anorexia. 16:05 Endocrine: Positive for WEAK, LOW GLUCOSE. Exam: 16:05 Constitutional: This is a well developed, well nourished patient who is awake, alert, charlene and in no acute distress. Head/Face: Normocephalic, atraumatic. Eyes: Pupils equal round and reactive to light, extra-ocular motions intact. Lids and lashes normal. Conjunctiva and sclera are non-icteric and not injected. Cornea within normal limits. Periorbital areas with no swelling, redness, or edema. ENT: Nares patent. No nasal discharge, no septal abnormalities noted. Tympanic membranes are normal and external auditory canals are clear. Oropharynx with no redness, swelling, or masses, exudates, or evidence of obstruction, uvula midline. Mucous membranes moist. Neck: Trachea midline, no thyromegaly or masses palpated, and no cervical lymphadenopathy. Supple, full range of motion without nuchal rigidity, or vertebral point tenderness. No Meningismus. Chest/axilla: Normal chest wall appearance and motion. Nontender with no deformity. No lesions are appreciated. Cardiovascular: Regular rate and rhythm with a normal S1 and S2. No gallops, murmurs, or rubs. Normal PMI, no JVD. No pulse deficits. Respiratory: Lungs have equal breath sounds bilaterally, clear to auscultation and percussion. No rales, rhonchi or wheezes noted. No increased work of breathing, no retractions or nasal flaring. Abdomen/GI: Soft, non-tender, with normal bowel sounds. No distension or tympany. No guarding or rebound. No evidence of tenderness throughout. Back: No spinal tenderness. No costovertebral tenderness. Full range of motion. Skin: Warm, dry with normal turgor. Normal color with no rashes, no lesions, and no evidence of cellulitis. MS/ Extremity: Pulses equal, no cyanosis. Neurovascular intact. Full, normal range of motion. Neuro: Awake and alert, GCS 15, oriented to person, place, time, and situation. Cranial nerves II-XII grossly intact. Motor strength 5/5 in all extremities. Sensory grossly intact. Cerebellar exam normal. Normal gait. Psych: Awake, alert, with orientation to person, place and time. Behavior, mood, and affect are within normal limits. 16:05 ECG was reviewed by the Attending Physician. Vital Signs: 12:47 BP 139 / 99; Pulse 92; Temp 97.7; Pulse Ox 100% ; Weight 72.57 kg; Height 5 ft. 2 in. ap3 (157.48 cm); 13:30 BP 162 / 91; Pulse 87; Pulse Ox 99% on R/A; ko1 14:31 BP 144 / 87; Pulse 85; Resp 18; Pulse Ox 100% on R/A; ko1 15:30 BP 138 / 76; Pulse 82; Pulse Ox 99% ; ko1 16:30 BP 154 / 78; Pulse 85; Pulse Ox 98% on R/A; ko1 17:30 BP 144 / 82; Pulse 87; Pulse Ox 98% ; ko1 18:30 BP 138 / 78; Pulse 85; Pulse Ox 99% ; ko1 12:47 Body Mass Index 29.26 (72.57 kg, 157.48 cm) ap3 MDM: 12:36 Patient medically screened. charlene 16:09 Differential Diagnosis altered mental status. Differential Diagnosis: electrolyte charlene abnormality, hypoglycemia, pneumonia, seizure, TIA, UTI, volume depletion. Data reviewed: vital signs, nurses notes, lab test result(s), finger stick glucose, CBC, electrolytes, hepatic panel, urinalysis, EKG, radiologic studies, plain films. Data interpreted: court monitor: rate is 89 beats/min, rhythm is regular. Test interpretation: by ED physician or midlevel provider: ECG, plain radiologic studies. Counseling: I had a detailed discussion with the patient and/or guardian regarding: the historical points, exam findings, and any diagnostic results supporting the discharge/admit diagnosis, lab results, radiology results, the need for further work-up and treatment in the hospital. 05/30 12:37 Order name: Basic Metabolic Panel; Complete Time: 15:47 charlene 05/30 12:37 Order name: CBC with Diff; Complete Time: 15:47 charlene 05/30 12:37 Order name: LFT's; Complete Time: 15:47 charlene 05/30 12:37 Order name: Magnesium; Complete Time: 15:47 [facility] 05/30 12:37 Order name: NT PRO-BNP; Complete Time: 15:47 [facility] 05/30 12:37 Order name: PT-INR; Complete Time: 15:47 [facility] 05/30 12:37 Order name: Troponin HS; Complete Time: 15:47 [facility] 05/30 12:37 Order name: XRAY Chest (1 view); Complete Time: 15:47 [facility] 05/30 13:04 Order name: Glucose, Ancillary Testing; Complete Time: 15:47 [facility] 05/30 16:02 Order name: CT Stone Protocol [facility] 05/30 16:02 Order name: SARS RAPID [facility] 05/30 18:01 Order name: Urine Dipstick-Ancillary [facility] 05/30 12:37 Order name: EKG; Complete Time: 12:38 [facility] 05/30 12:37 Order name: Cardiac monitoring; Complete Time: 12:57 [facility] 05/30 12:37 Order name: EKG - Nurse/Tech; Complete Time: 13:08 [facility] 05/30 12:37 Order name: IV Saline Lock; Complete Time: 13:36 [facility] 05/30 12:37 Order name: Labs collected and sent; Complete Time: 13:36 [facility] 05/30 12:37 Order name: O2 Per Protocol; Complete Time: 12:57 [facility] 05/30 12:37 Order name: O2 Sat Monitoring; Complete Time: 12:57 [facility] 05/30 12:37 Order name: PO challenge: juice; Complete Time: 13:08 [facility] 05/30 13:43 Order name: Labs - recollect needed: recollect all tubes; Complete Time: 14:30 05/30 15:57 Order name: Diet Regular; Complete Time: 15:58 [facility] 05/30 16:03 Order name: Urine Dipstick-Ancillary (obtain specimen); Complete Time: 17:55 charlene EC:05 Rate is 77 beats/min. Rhythm is regular. QRS [place] is Normal. SC interval is shortened charlene at 108 msec. QRS interval is normal. QT interval is normal. No Q waves. T waves are Normal. No ST changes noted. Clinical impression: NSR w/ Non-specific ST/T Changes and No evidence of ischemia. Interpreted by me. Reviewed by me. Administered Medications: 13:36 Drug: NS 0.9% 1000 ml Route: IV; Rate: 125 ml/hr; Site: left antecubital; ko1 16:04 Drug: NS 0.9% 500 ml Route: IV; Rate: bolus; Site: left antecubital; ko1 Point of Care Testing: Blood Glucose: 12:52 Blood Glucose: 147 mg/dL; ap3 Ranges: Critical Glucose Levels:Adult <50 mg/dl or >400 mg/dl <40 mg/dl or >180 mg/dl Disposition Summary: 05/30/22 16:14 Discharge Ordered Location: Home charlene Problem: new charlene Symptoms: have improved charlene Condition: Stable charlene Diagnosis - Weakness charlene - Type 1 diabetes mellitus with hypoglycemia charlene - Chronic kidney disease, stage 4 (severe) charlene Followup: charlene - With: Private Physician - When: 2 - 3 days - Reason: Recheck today's complaints, Continuance of care, Re-evaluation by your physician Followup: charlene - With: Shoaib Duong MD - When: 2 - 3 days - Reason: Recheck today's complaints, Continuance of care, Re-evaluation by your physician Discharge Instructions: - Discharge Summary Sheet charlene - Hypoglycemia charlene - Weakness charlene - Weakness, Qngy-lf-[id number] charlene - Food Basics for Chronic Kidney Disease charlene - Chronic Kidney Disease, Adult, [id number] charlene - Hypoglycemia, Dcar-ef-Ohab charlene - Preventing Hypoglycemia charlene - Chronic Kidney Disease, Adult charlene Forms: - Medication Reconciliation Form charlene - Thank You Letter charlene - Antibiotic Education charlene - Prescription Opioid Use charlene - Work release form ko1 Signatures: Dispatcher [employer] Sofía Castellanos Corey, MD MD cha Prokisch, Amanda, RN RN ap3 Anusha Mo RN RN ko1
--- NOTE | 2022-05-30 16:15 | ER ---
Nurse's Notes [facility] Name: Bisi Santo Age: 52 yrs Sex: Female : 1970 Arrival Date: 05/30/2022 Time: 12:29 Bed 14 Private MD: Diagnosis: Weakness;Type 1 diabetes mellitus with hypoglycemia;Chronic kidney disease, stage 4 (severe) Presentation: 05/30 12:47 Chief complaint: Patient states: her blood sugar is "low" patient states that even ap3 after she eats her blood sugar will not go up. Coronavirus screen: At this time, the client does not indicate any symptoms associated with coronavirus-19. Ebola Screen: No symptoms or risks identified at this time. Initial Sepsis Screen: Does the patient meet any 2 criteria? No. Patient's initial sepsis screen is negative. Does the patient have a suspected source of infection? No. Patient's initial sepsis screen is negative. Risk Assessment: Do you want to hurt yourself or someone else? Patient reports no desire to harm self or others. Onset of symptoms was May 30, 2022. 12:47 Method Of Arrival: Ambulatory ap3 12:53 Acuity: SONIA 3 ap3 Triage Assessment: 12:49 General: Appears uncomfortable, Behavior is cooperative, Reports fatigue for. Pain: ap3 Denies pain. Neuro: Level of Consciousness is awake, alert, obeys commands, Oriented to person, place, time, situation. Cardiovascular: Patient's skin is warm and dry. Respiratory: Airway is patent Respiratory effort is even, unlabored, Respiratory pattern is regular, symmetrical. GI: Reports nausea. OPERATIONS ADVISOR: 12:50 LMP N/A - Post-menopause ap3 Historical: - Allergies: 12:49 Codeine; ap3 12:49 Demerol; ap3 12:49 Morphine; ap3 12:49 Sulfa (Sulfonamide Antibiotics); ap3 - Home Meds: 12:51 carvedilol 12.5 mg oral tab 1 tab 2 times per day [Active]; Kerendia 10 mg oral tab 1 ap3 tab once daily [Active]; - PMHx: 12:49 Diabetes - IDDM; Hypertension; ap3 - Immunization history:: Client reports receiving the 2nd dose of the Covid vaccine, Flu vaccine is up to date. - Social history:: Smoking status: Patient denies any tobacco usage or history of. - Family history:: not pertinent. Screenin:50 Abuse screen: Denies threats or abuse. Nutritional screening: No deficits noted. ap3 Tuberculosis screening: No symptoms or risk factors identified. 13:30 [facility] ED Fall Risk Assessment (Adult) History of falling in the last 3 months, ko1 including since admission No falls in past 3 months (0 pts) Confusion or Disorientation No (0 pts) Intoxicated or Sedated No (0 pts) Impaired Gait No (0 pts) Mobility Assist Device Used No (0 pt) Altered Elimination No (0 pt) Score/Fall Risk Level 0 - 2 = Low Risk Oriented to surroundings, Maintained a safe environment, Educated pt \\T\\ family on fall prevention, incl call for assistance when getting out of bed, Assessed \\T\\ reinforced patient's understanding of fall precautions, Provided non-skid footwear, Hourly rounding (assess needs \\T\\ fall precautionary measures) done, Used ambulatory aids as needed (educated on \\T\\ assisted with), Used gait belt as appropriate. Assessment: 13:30 General: Appears in no apparent distress. comfortable, Behavior is calm, cooperative, ko1 appropriate for age. Pain: Denies pain. Neuro: No deficits noted. Cardiovascular: No deficits noted. Respiratory: No deficits noted. GI: No deficits noted. : No deficits noted. EENT: No deficits noted. Derm: No deficits noted. Musculoskeletal: No deficits noted. 18:30 Reassessment: Patient ate all of her dinner tray. ko1 Vital Signs: 12:47 BP 139 / 99; Pulse 92; Temp 97.7; Pulse Ox 100% ; Weight 72.57 kg; Height 5 ft. 2 in. ap3 (157.48 cm); 13:30 BP 162 / 91; Pulse 87; Pulse Ox 99% on R/A; ko1 14:31 BP 144 / 87; Pulse 85; Resp 18; Pulse Ox 100% on R/A; ko1 15:30 BP 138 / 76; Pulse 82; Pulse Ox 99% ; ko1 16:30 BP 154 / 78; Pulse 85; Pulse Ox 98% on R/A; ko1 17:30 BP 144 / 82; Pulse 87; Pulse Ox 98% ; ko1 18:30 BP 138 / 78; Pulse 85; Pulse Ox 99% ; ko1 12:47 Body Mass Index 29.26 (72.57 kg, 157.48 cm) ap3 ED Course: 12:29 Patient arrived in ED. mr 12:36 Hari De La Garza MD is Attending Physician. charlene 12:50 Arm band placed on left wrist. ap3 12:53 Triage completed. ap3 12:56 Anusha Mo, RN is Primary Nurse. ko1 13:22 XRAY Chest (1 view) In Process Unspecified. EDMS 13:30 Patient has correct armband on for positive identification. Placed in gown. Bed in low ko1 position. Call light in reach. Side rails up X 1. Client placed on continuous cardiac and pulse oximetry monitoring. NIBP monitoring applied. employment coach on. Door closed. Noise minimized. Lights dimmed. Warm blanket given. 13:30 Inserted saline lock: 22 gauge in left antecubital area, using aseptic technique. Blood ko1 collected. 13:36 Basic Metabolic Panel Sent. ko1 13:36 CBC with Diff Sent. ko1 13:36 LFT's Sent. ko1 13:36 Magnesium Sent. ko1 13:37 NT PRO-BNP Sent. ko1 13:37 PT-INR Sent. ko1 13:37 Troponin HS Sent. ko1 16:14 SARS RAPID Sent. ko1 16:16 Shoaib Duong MD is Referral Physician. charlene 16:32 CT Stone Protocol In Process Unspecified. EDMS 18:30 No provider procedures requiring assistance completed. IV discontinued, intact, ko1 bleeding controlled, No redness/swelling at site. Pressure dressing applied. Administered Medications: 13:36 Drug: NS 0.9% 1000 ml Route: IV; Rate: 125 ml/hr; Site: left antecubital; ko1 16:04 Drug: NS 0.9% 500 ml Route: IV; Rate: bolus; Site: left antecubital; ko1 Medication: 18:30 VIS not applicable for this client. ko1 Point of Care Testing: Blood Glucose: 12:52 Blood Glucose: 147 mg/dL; ap3 Ranges: Intake: 18:30 PO: 240ml (Water); Total: 240ml. ko1 Outcome: 16:14 Discharge ordered by . charlene 18:30 Discharged to home ambulatory, with family. ko1 18:30 Condition: improved 18:30 Discharge instructions given to patient, Instructed on discharge instructions, follow up and referral plans. medication usage, eating 3 meals a day and snacks, monitor blood sugar and keep log to show PCP. Demonstrated understanding of instructions, follow-up care. 18:52 Patient left the ED. ko1 Signatures: Dispatcher [employer] Hari Diaz MD MD cha Rivera, Mary mr Krissy Larsen, RN RN ap3 Anusha Mo RN RN ko1
[2022-05-30 16:36] LABS: SARS-CoV-2 Antigen Rapid Res Negative (Negative)
--- NOTE | 2022-05-30 16:48 | RAD REPORT ---
EXAM DESCRIPTION: CT - Stone Protocol - 05/30/2022 4:31 pm CLINICAL HISTORY: Abdominal pain. Flank pain COMPARISON: 2020 TECHNIQUE: Computed axial tomography of the abdomen pelvis was obtained without oral or IV contrast. Lack of IV and oral contrast limits evaluation of solid organs, appendix, bowel, and vessels. Biggs l reformatted images were obtained and reviewed. All CT scans are performed using dose optimization technique as appropriate and may include automated exposure control or mA/KV adjustment according to patient size. FINDINGS: A tiny calculus right kidney. No hydronephrosis. An ureteral calculus is not noted. A blad judson calculus is not present. The liver, spleen, pancreas and adrenals appear grossly normal There is no evidence of diverticulitis. The appendix appears normal Cholecystectomy IMPRESSION: Tiny nonobstructing right renal calculus
[2022-05-30 18:01] LABS: Urine Blood 1+ (Negative); Urine Glucose Negative (Negative); Urine Protein 3+ (Negative); Urine Specific Gravity >=1.030 (1.005-1.030); Urine pH 5.5 (5.0-7.0)
[2022-05-30 18:55] VITALS: TEMP 97.7
[2022-05-30 19:02] VITALS: BP 138/78; O2SAT 99
--- NOTE | 2022-05-31 15:23 | EKG ---
Test Date: 2022-05-30 Test Time: 13:05:45 Certified Peer Specialist: JAH MEASUREMENT RESULTS: Intervals: Rate: 89 OH: 108 QRSD: 80 QT: 362 QTc: 440 [place]: P: 56 OH: 108 QRS: -1 T: 27 INTERPRETIVE STATEMENTS: Sinus rhythm with short OH Otherwise normal ECG Compared to ECG 04/09/2022 07:48:48 Short OH interval now present Electronically Signed On 05-31-22 15:21:38 DROP FORGE OPERATOR by Isaiah Hogan
== END 2022-05-30 18:52 | disposition home or self-care (01) ==
LOC: ER 12:24
DX: E10.22 Type 1 diabetes mellitus with diabetic chronic kidney disease (principal); I12.9 Hypertensive chronic kidney disease with stage 1 through stage 4 chronic kidney disease, or unspecified chronic kidney disease; E10.649 Type 1 diabetes mellitus with hypoglycemia without coma; N18.4 Chronic kidney disease, stage 4 (severe); Z20.822 Contact with and (suspected) exposure to COVID-19; Z88.2 Allergy status to sulfonamides; Z88.5 Allergy status to narcotic agent
CPT/HCPCS: 93005; 85025; 80048; 36415; 83735; 85610; 82947; 80076; 81003; 84484; 83880; 76377; 74176; 71045; 99284; 87811; J7040; J7030

== ENCOUNTER 2023-01-28 13:53 | Emergency (ER) | payer OTHER ==
--- OUTSIDE RECORDS SUMMARY | 2023-01-28 13:56 | XMS REPORT | Clinical Summary ---
:1970 Author Organization [facility] MD Iqbal [facility] Address [facility] [place] [address] Care Team Providers Name Role Phone Cassie Porter MD Unavailable Allergies Not on File Medications Not on file Active Problems Not on file Social History Tobacco Use Types Packs/Day Years Used Date Smoking Tobacco: Never Assessed Sex Assigned at Date Recorded Not on file Last Filed Vital Signs Not on file Plan of Treatment Not on file Results Not on fileafter 01/28/2022 Care Teams Pelt Salter Relationship Specialty Start Date End Date Cassie Porter MD PCP - External Referring 04/29/182119 [place] [address]
--- OUTSIDE RECORDS SUMMARY | 2023-01-28 13:59 | XMS REPORT | Continuity of Care Document ---
:1970 Author Organization [facility] t Address [address] [facility] [address] [place] [address] Care Team Providers Name Role Phone Griselda SWARTZ, Darlene Primary Care Physician [phone] Bernardo MAGALLANES, Ara Conte Attending Clinician Clinton Carpenter MD Attending Clinician [phone] Tee MAGALLANES, Diamond Wilde Attending Clinician [phone] John Franks MD Attending Clinician JOHN [...] drug Sulfur Propensi Active Dioxide ty to 12-26 adverse 00:00: reaction 00 to drug NO KNOWN Allergy Active [facility] Social History Social Habit Start Date Stop Date Quantity Comments Source Sex Assigned At [birth year] SARAH Rojas [facility] Medications Ordered Filled Start Stop Current Ordering Indication Dosage Frequency Signature Comments Components Source Medication Medication Date Date Medication? Clinician (SIG) Name Name Dose 2021-05 No Unknown 06-02 00:00: 00 INJECT 10 2021-05 No UNITS IN 07 THE AM AND 00:00: 10 UNITS IN 00 THE EVENING insulin 2022- No 10U Inject [address] [facility] 70/30, 02-22 [facility] 00:00: 23:59 subcutaneo Med ical NPH-insulin 00 :[address] regular, (two) (HumuLIN times 70/30) 100 daily unit/mL before (70-30) meals. injection insulin 2022- No 10U Inject [address] [facility] 70/30, 02-22 [facility] 00:00: 23:59 subcutaneo Med ical NPH-insulin 00 :[address] regular, (two) (HumuLIN times 70/30) 100 daily unit/mL before (70-30) meals. injection insulin 2022- No 10U Inject [address] [facility] [address] 70/30, 02-22- [facility] 00:00: 23:59 subcutaneo Med ical NPH-insulin 00 :[address] regular, (two) (HumuLIN times 70/30) 100 daily unit/mL before (70-30) meals. injection insulin 2022- No 10U Inject [address] [facility] [address] 70/30, 02-22- [facility] 00:00: 23:59 subcutaneo Med ical NPH-insulin 00 :[address] regular, (two) (HumuLIN times 70/30) 100 daily unit/mL before (70-30) meals. injection insulin 2022- No 10U Inject [address] [facility] [address] 70/30, 02-22-29 [facility] 00:00: 23:59 subcutaneo Med ical NPH-insulin 00 :00 [facility] regular, (two) (HumuLIN times 70/30) 100 daily unit/mL before (70-30) meals. injection amLODIPine 2021-2021- No 10mg QD Take [address] [facility] (NORVASC) 9- 12-28 tablet (10 Celia es 10 MG 00:00: 23:59 mg total) Medica l tablet 00 :00 by mouth Center daily for 90 days. carvediloL 2021-2021- No 25mg Q.5D Take [address] [facility] (COREG) 25 9- 12-28 tablet (25 Sabi kes MG tablet 00:00: 23:59 mg total) Me dical 00 :00 by mouth 2 Center (two) times daily for 90 days. amLODIPine 2021-0 2021- No 10mg QD Take [address] [facility] (NORVASC) - 12-28 tablet (10 Celia es 10 MG 00:00: 23:59 mg total) Medica l tablet 00 :00 by mouth Center daily for 90 days. carvediloL 2021-0 2021- No 25mg Q.5D Take [address] [facility] (COREG) 25 - 12-28 tablet (25 Sabi kes MG tablet 00:00: 23:59 mg total) Me dical 00 :00 by mouth 2 Center (two) times daily for 90 days. amLODIPine 2021-0 2021- No 10mg QD Take [address] [facility] (NORVASC) - 12-28 tablet (10 Celia es 10 MG 00:00: 23:59 mg total) Medica l tablet 00 :00 by mouth Center daily for 90 days. carvediloL 2021-0 2021- No 25mg Q.5D Take [address] [facility] (COREG) 25 9- 12-28 tablet (25 Sabi kes MG tablet 00:00: 23:59 mg total) Me dical 00 :00 by mouth 2 Center (two) times daily for 90 days. amLODIPine 2021-0 2022- No 10mg QD Take [address] [facility] (NORVASC) 9- 12-28 tablet (10 Celia es 10 MG 00:00: 23:59 mg total) Medica l tablet 00 :00 by mouth Center daily for 90 days. carvediloL 2022-0 2022- No 25mg Q.5D Take [address] [facility] (COREG) 25 02-22- tablet (25 Sabi kes MG tablet 00:00: 23:59 mg total) Me dical 00 :00 by mouth 2 Center (two) times daily for 90 days. amLODIPine 2021- No 10mg QD Take [address] [facility] (NORVASC) 02-22- tablet (10 Celia es 10 MG 00:00: 23:59 mg total) Medica l tablet 00 :00 by mouth Center daily for 90 days. carvediloL 2021- No 25mg Q.5D Take [address] [facility] [address] (COREG) 25 02-22- tablet (25 Sabi kes MG tablet 00:00: 23:59 mg total) Me dical 00 :00 by mouth 2 Center (two) times daily for 90 days. insulin 2021- No 4U Inject 4 [facility] lispro 02-22-29 [facility] (HumaLOG) 00:00: 00:00 subcutaneo M edical 100 unit/mL 00 :00 [facility] injection (three) times daily before [...] 00:00 subcutaneo Medic al (LEVEMIR) 00 :00 [facility] Center 100 unit/mL nightly. injection insulin 2021- No 4U Inject 4 [facility] lispro 02-22-29 [facility] (HumaLOG) 00:00: 00:00 subcutaneo M edical 100 unit/mL 00 :00 [facility] Center injection (three) times daily before [...] 10U QD Inject [address] [facility] detemir 9-29 09-29 [facility] U-100 00:00: 00:00 subcutaneo Medic al (LEVEMIR) 00 :00 usly Center 100 unit/mL nightly. injection insulin 2021- No 4U Inject 4 [facility] lispro 02-22-29 [facility] (HumaLOG) 00:00: 00:00 subcutaneo M [...] 4U Inject 4 [facility] lispro 02-22-29 [facility] (HumaLOG) 00:00: 00:00 subcutaneo M [...] 4U Inject 4 [facility] lispro 02-22-29 [facility] (HumaLOG) 00:00: 00:00 subcutaneo M [...] 100 unit/mL nightly. injection Dose No Unknown - 00:00: 00 Lexapro 10 No 1mg mg tablet 818 00:00: 00 Dose 2020-0 No Unknown 8-05 00:00: 00 losartan 50 2020-0 No 1mg mg-hydrochl 802 orothiazide 00:00: 12.5 mg 00 tablet metformin No 1mg 1,000 mg 8-02 tablet 00:00: 00 Vital Signs Vital Name [...] 10:03:00 Systolic blood 2022-02-22 10:35:00 116 mm[Hg] [facility] Diastolic blood 2022-02-22 10:35:00 68 mm[Hg] [facility] Heart rate 2022-02-22 10:35:00 84 /min [facility] Body temperature 2022-02-22 10:35:00 36.5 Cori [facility] Respiratory rate 2022-02-22 10:35:00 16 /min [facility] Oxygen saturation in 2022-02-22 10:35:00 98 /min [facility] Arterial blood by Medical Ce nter Pulse oximetry Body height 2022-02-17 16:15:00 162.6 cm [facility] Body weight 2022-02-17 16:15:00 72.3 kg [facility] BMI 2022-02-17 16:15:00 27.36 kg/m2 [facility] Heart Rate 2021-01-11 09:40:00 100.00 /min Respiratory Rate 2021-01-11 09:40:00 17.00 /min BP Systolic 2021-01-11 09:40:00 150 mm[Hg] BP Diastolic 2021-01-11 09:40:00 98 mm[Hg] Weight Measured 2021-01-11 09:40:00 156.20 pounds Height Measured 2021-01-11 09:40:00 62.50 inches Body Temperature 2021-01-11 09:40:00 98.80 degrees BP Systolic 2021-01-11 09:08:00 BP Diastolic 2021-01-11 [...] e POCT-GLUCOSE METER 2022-02-22 10:39:00 John Franks [facility] POCT-GLUCOSE METER 2022-02-22 07:49:00 Eve Franksra [facility] BASIC METABOLIC PANEL 2022-02-22 04:19:00 Ivan Aguilar [facility] POCT-GLUCOSE METER 2022-02-21 23:22:00 Joycelyn John [facility] POCT-GLUCOSE METER 2022-02-21 16:22:00 John Franks [facility] POCT-GLUCOSE METER 2022-02-21 11:29:00 [facility] 2022-02-21 07:39:00 Joycelyn [facility] BASIC METABOLIC PANEL 2022-02-21 03:46:00 Ivan Aguilar [facility] POCT-GLUCOSE METER 2022-02-21 00:17:00 John Franks [facility] MR CERVICAL SPINE WITH & 2022-02-20 18:30:00 Zander Ham [facility] WITHOUT IV CONTRAST Medical Cent er XR CHEST 1 VIEW PORTABLE 2022-02-20 15:20:00 Joycelyn Eve [facility] / BEDSIDE [facility] POCT-GLUCOSE METER 2022-02-20 12:50:00 Joycelyn John [facility] CBC W/PLT COUNT & AUTO 2022-02-20 06:08:00 [facility] DI[facility] COMPREHENSIVE METABOLIC 2022-02-20 06:08:00 Levi Hpokins [facility] PANEL [facility] MAGNESIUM 2022-02-20 06:08:00 Levi Hopkins [facility] PHOSPHORUS 2022-02-20 06:08:00 Levi Hopkins [facility] CBC W/PLT COUNT & AUTO 2022-02-20 06:08:00 [facility] DI[facility] POCT-GLUCOSE METER 2022 18:11:[address] [facility] POCT-GLUCOSE METER 2022 16:16:[address] [facility] POCT-GLUCOSE METER 2022 12:41:00 [facility], 25-HYDROXY 2022 09:30:00 Chioma Bustillos [facility] POCT-GLUCOSE METER 2022 08:14:[address] [facility] CBC W/PLT COUNT & AUTO 2022 02:10:00 [facility] COMPREHENSIVE METABOLIC 2022 02:10:00 KellieLevi [facility] PANEL [facility] MAGNESIUM 2022 02:10:00 [facility] 2022 02:10:00 [facility] P[facility], INTACT 2022 02:10:00 Najma Koo [facility] CBC W/PLT COUNT & AUTO 2022 02:10:00 Levi Hopkins [facility] DIFFERENTIAL [facility] POCT-GLUCOSE METER 2022-02-18 22:01:[address] [facility] POCT-GLUCOSE METER 2022-02-18 17:32:00 Jayden, [facility] POCT-GLUCOSE METER 2022-02-18 13:00:[address] [facility] 2D ECHO W/ DOPPLER 2022-02-18 10:36:26 Marina Logan [facility] (CW/PW/COLOR) [facility] 2D ECHO W/ DOPPLER 2022-02-18 10:36:26 Marina Logan [facility] (CW/PW/COLOR) [facility] POCT-GLUCOSE METER 2022-02-18 09:25:00 Jayden, Nance [facility] US RENAL COMPLETE 2022-02-18 08:33:00 Aissatou Henry [facility] POCT-GLUCOSE METER 2022-02-18 05:33:[address] [facility] CBC W/PLT COUNT & AUTO 2022-02-18 04:09:00 Levi Hopkins [facility] DIFFERENTIAL [facility] COMPREHENSIVE METABOLIC 2022-02-18 04:09:00 KellieJusten tinocoke [facility] PANEL [facility] MAGNESIUM 2022-02-18 04:09:00 KellieJustenke [facility] PHOSPHORUS 2022-02-18 04:09:00 [facility] CBC W/PLT COUNT & AUTO 2022-02-18 04:09:00 Kellie, Levi [facility] S t [facility] DIFFERENTIAL [facility] POCT-GLUCOSE METER 2022-02-17 22:53:[address] [facility] MR BRAIN WITHOUT IV 2022-02-17 18:29:00 Kellei Leiv [facility] CONTRAST [facility] POCT-GLUCOSE METER 2022-02-17 18:27:[address] [facility] TSH/FREE T4 IF INDICATED 2022-02-17 17:06:[address] [facility] T4, FREE 2022-02-17 17:06:00 Aissatou Henry [facility] POCT-GLUCOSE METER 2022-02-17 16:29:[address] [facility] POCT-GLUCOSE METER 2022-02-17 15:14:[address] [facility] POCT-GLUCOSE METER 2022-02-17 14:10:[address] [facility] POCT-GLUCOSE METER 2022-02-17 13:18:[address] [facility] ECG 12-LEAD 2022-02-17 12:16:45 Aissatou Henry [facility] ECG 12-LEAD 2022-02-17 12:16:45 Unknown, Hl7 Doctor [facility] ECG 12-LEAD 2022-02-17 12:16:45 Unknown, Hl7 Doctor [facility] BASIC METABOLIC PANEL 2022-02-17 12:12:00 JeffBebetoIvan [facility] POCT-GLUCOSE METER 2022-02-17 11:36:00 Jayden, Nance [facility] POCT-GLUCOSE METER 2022-02-17 10:04:[address] [facility] POCT-GLUCOSE METER 2022-02-17 09:01:[address] [facility] BASIC METABOLIC PANEL 2022-02-17 08:53:00 JeffBebetoIvan [facility] POCT-GLUCOSE METER 2022-02-17 08:13:[address] [facility] BASIC METABOLIC PANEL 2022-02-17 05:41:00 Bebeto Aguilaregan [facility] MAGNESIUM 2022-02-17 05:41:00 Jeff Ivan [facility] PHOSPHORUS 2022-02-17 05:41:00 Jeff Ivan [facility] POCT-GLUCOSE METER 2022-02-17 05:18:[address] [facility] HEMOGLOBIN A1C 2022-02-17 03:29:00 Levi Hopkins [facility] CBC W/PLT COUNT & AUTO 2022-02-17 03:29:00 Levi Hopkins [facility] S t [facility] DIFFERENTIAL [facility] COMPREHENSIVE METABOLIC 2022-02-17 03:29:00 Levi Hopkins [facility] PANEL [facility] MAGNESIUM 2022-02-17 03:29:00 Levi Hopkins [facility] PHOSPHORUS 2022-02-17 03:29:00 Levi Hopkins [facility] CBC W/PLT COUNT & AUTO 2022-02-17 03:29:00 Levi Hopkins [facility] POCT-GLUCOSE METER 2022-02-17 02:55:00 Jayden, Nance [facility] BASIC METABOLIC PANEL 2022-02-17 01:40:00 Ivan Aguilar [facility] POCT-GLUCOSE METER 2022-02-17 01:22:00 Jayden, [facility] POCT-GLUCOSE METER 2022-02-17 00:01:[address] [facility] XR ABDOMEN/KUB 1 VIEW 2022-02-16 22:34:00 Bebeto Aguilaregan [facility] PORTABLE [facility] POCT-GLUCOSE METER 2022-02-16 22:18:[address] [facility] BLOOD GAS, ARTERIAL 2022-02-16 21:43:00 Bebeto Aguilaregan [facility] XR CHEST 1 VIEW PORTABLE 2022-02-16 21:29:00 Ivan Aguilar [facility] / BEDSIDE [facility] POCT-GLUCOSE METER 2022-02-16 21:02:[address] [facility] KETONE, BLOOD 2022-02-16 20:59:00 Ivan Aguilar [facility] POCT-GLUCOSE METER 2022-02-16 20:22:00 Jayden, Nance [facility] BASIC METABOLIC PANEL 2022-02-16 20:16:00 Ivan Aguilar [facility] POCT-GLUCOSE METER 2022-02-16 18:06:00 Jayden, Nance [facility] POCT-GLUCOSE METER 2022-02-16 17:15:00 Jayden, [facility] POCT-GLUCOSE METER 2022-02-16 16:01:[address] [facility] POCT-GLUCOSE METER 2022-02-16 15:03:[address] [facility] BLOOD CULTURE 2022-02-16 14:48:00 [facility] URINALYSIS W/ REFLEX 2022-02-16 14:29:00 [facility] URINE CULTURE [facility] POCT-GLUCOSE METER 2022-02-16 14:16:[address] [facility] BLOOD CULTURE 2022-02-16 13:40:00 Desmond, [facility] POCT-GLUCOSE METER 2022-02-16 13:24:00 [facility] POCT-GLUCOSE METER 2022-02-16 12:09:00 [facility] EEG AWAKE AND DROWSY 2022-02-16 11:47:[address] [facility] CBC W/PLT COUNT & AUTO 2022-02-16 11:25:00 Clinton Carpenter [facility] BASIC METABOLIC PANEL 2022-02-16 11:25:[address] [facility] HIGH SENSITIVITY TROPONIN 2022-02-16 11:25:[address] [facility] HEPATIC FUNCTION PANEL 2022-02-16 11:25:00 Jayden Nance [facility] LACTIC ACID, VENOUS 2022-02-16 11:25:00 Jayden Nance [facility] CBC W/PLT COUNT & AUTO 2022-02-16 11:25:00 Clinton Carpenter [facility] SARS-COV2/RT-PCR (SL & 2022-02-16 11:03:00 [facility] REF LABS) [facility] MRSA SCREEN 2022-02-16 11:03:00 Clinton Carpenter [facility] XR CHEST 1 VIEW PORTABLE 2022-02-16 10:40:00 Clinton Carpenter [facility] / BEDSIDE [facility] POCT-GLUCOSE METER 2022-02-16 09:16:00 Ara Chang [facility] Plan of Care Planned Activity Planned Date Details Comments Source Future Scheduled 2023-01-25 Influenza Vaccine (#1) [facility]00 [code = Influenza Vaccine Me dical Center (#1)] Future Scheduled 2022-05-[address] [facility] 00:00:00 (12+) [code = DEPRESSION Med ical Center SCREENING (12+)] Future Scheduled 2022-05-[address] [facility] 00:00:00 (12+) [code = DEPRESSION Med ical Center SCREENING (12+)] Future Scheduled 2022-01-25 INFLUENZA VACCINE (#1) [facility] 00:00:00 [code = INFLUENZA VACCINE Me dical Center (#1)] Future Scheduled 2022-01-25 INFLUENZA VACCINE (#1) [facility] 00:00:00 [code = INFLUENZA VACCINE Me dical Center (#1)] Future Scheduled 2022-01-25 INFLUENZA VACCINE (#1) [facility] 00:00:00 [code = INFLUENZA VACCINE Me dical Center (#1)] Future Scheduled 2022-01-25 INFLUENZA VACCINE (#1) [facility] 00:00:00 [code = INFLUENZA VACCINE Me dical Center (#1)] Future Scheduled 2021-05-29 Screening for malignant [facility] 00:00:00 neoplasm of breast Medical C enter (procedure) [code = 375174252] Future Scheduled 2021-05-29 Screening for malignant [facility] 00:00:00 neoplasm of breast Medical C enter (procedure) [code = 242233943] Future Scheduled 2021-05-29 Screening for malignant [facility] 00:00:00 neoplasm of breast Medical C enter (procedure) [code = 181465697] Future Scheduled 2021-05-29 Screening for malignant [facility] 00:00:00 neoplasm of breast Medical C enter (procedure) [code = 166016432] Future Scheduled 2021-05-29 Screening for malignant [facility] 00:00:00 neoplasm of breast Medical C enter (procedure) [code = 812298908] Future Scheduled 2021-05-[address] [facility] 00:00:00 (12+) [code = DEPRESSION Med ical Center SCREENING (12+)] Future Scheduled 2021-05-[address] [facility] 00:00:00 (12+) [code = DEPRESSION Med ical Center SCREENING (12+)] Future Scheduled 2021-05-[address] [facility] 00:00:00 (12+) [code = DEPRESSION Med ical Center SCREENING (12+)] Future Scheduled 2019 SHINGLES VACCINES ([address] [facility] 00:00:00 2) [code = SHINGLES Medical Center VACCINES (1 of 2)] Future Scheduled 2019 SHINGLES VACCINES ([address] [facility] 00:00:00 2) [code = SHINGLES Medical Center VACCINES (1 of 2)] Future Scheduled 2019 SHINGLES VACCINES ([address] [facility] 00:00:00 2) [code = SHINGLES Medical Center VACCINES (1 of 2)] Future Scheduled 2019 SHINGLES VACCINES ([address] [facility] 00:00:00 2) [code = SHINGLES Medical Center VACCINES (1 of 2)] Future Scheduled 2019 SHINGLES VACCINES ([address] [facility] 00:00:00 2) [code = SHINGLES Medical Center VACCINES (1 of 2)] Future Scheduled 2014 Lipid panel (procedure) [facility] 00:00:00 [code = 19141066] Medical Ce nter Future Scheduled 2014 Lipid panel (procedure) [facility] 00:00:00 [code = 99212482] Medical Ce nter Future Scheduled 2014 Lipid panel (procedure) [facility] 00:00:00 [code = 70211842] Medical Ce nter Future Scheduled 2014 Lipid panel (procedure) [facility] 00:00:00 [code = 13257148] Medical Ce nter Future Scheduled 2014 Lipid panel (procedure) [facility] 00:00:00 [code = 63000944] Medical Ce nter Future Scheduled 1990 Screening for malignant [facility] 00:00:00 neoplasm of cervix Medical C enter (procedure) [code = 224860769] Future Scheduled 1990 Screening for malignant [facility] 00:00:00 neoplasm of cervix Medical C enter (procedure) [code = 608341949] Future Scheduled 1990 Screening for malignant [facility] 00:00:00 neoplasm of cervix Medical C enter (procedure) [code = 807133260] Future Scheduled 1990 Screening for malignant [facility] 00:00:00 neoplasm of cervix Medical C enter (procedure) [code = 584448104] Future Scheduled 1990 Screening for malignant [facility] 00:00:00 neoplasm of cervix Medical C enter (procedure) [code = 250908384] Future Scheduled 1988-02-20 DTAP/TDAP/TD VACCINES ([address] [facility] 00:00:00 - Tdap) [code = Medical Cent er DTAP/TDAP/TD VACCINES (1 - Tdap)] Future Scheduled 1988-02-20 DTAP/TDAP/TD VACCINES ([address] [facility] 00:00:00 - Tdap) [code = Medical Cent er DTAP/TDAP/TD VACCINES (1 - Tdap)] Future Scheduled 1988-02-20 DTAP/TDAP/TD VACCINES ([address] [facility] 00:00:00 - Tdap) [code = Medical Cent er DTAP/TDAP/TD VACCINES (1 - Tdap)] Future Scheduled 1988-02-20 DTAP/TDAP/TD VACCINES ([address] [facility] 00:00:00 - Tdap) [code = Medical Cent er DTAP/TDAP/TD VACCINES (1 - Tdap)] Future Scheduled 1988-02-20 DTAP/TDAP/TD VACCINES ([address] [facility] 00:00:00 - Tdap) [code = Medical Cent er DTAP/TDAP/TD VACCINES (1 - Tdap)] Future Scheduled [...] HEPATITIS C Medical Center SCREENING] Future Scheduled 1984-02-[address] [facility] 00:[facility]:00 virus screening Medical Cent er (procedure) [code = 985684562] Future Scheduled [address] [facility] 00:00:00 Counseling and Screening Med ical Center (12+) [code = Tobacco Cessation Counseling and Screening (12+)] Future Scheduled [address] [facility] 00:00:00 Counseling and Screening Med ical Center (12+) [code = Tobacco Cessation Counseling and Screening (12+)] Future Scheduled 1969 COVID-19 VACCINE (#1) [facility]:00:00 [code = COVID-19 VACCINE Med ical Center (#1)] Future Scheduled 1969 COVID-19 VACCINE (#1) [facility]:00:00 [code = COVID-19 VACCINE Med ical Center (#1)] Future Scheduled 1969 COVID-19 VACCINE (#1) [facility] 00:00:00 [code = COVID-19 VACCINE Med ical Center (#1)] Future Scheduled 1969 COVID-19 VACCINE (#1) [facility] 00:00:00 [code = COVID-19 VACCINE Med ical Center (#1)] Future Scheduled 1969 COVID-19 VACCINE (#1) [facility] 00:00:00 [code = COVID-19 VACCINE Med ical Center (#1)] Future Scheduled 1969 CT Colonography (combo) [facility] 00:00:00 [code = CT Colonography [facility] (combo)] Future Scheduled 1969 Screening for malignant [facility] 00:00:00 neoplasm of colon Medical Ce nter (procedure) [code = 085424400] Future Scheduled 1969 Screening for malignant [facility] 00:00:00 neoplasm of colon Medical Ce nter (procedure) [code = 183980976] Future Scheduled 1969 Screening for malignant [facility] 00:00:00 neoplasm of colon Medical Ce nter (procedure) [code = 170462356] Future Scheduled 1969 Screening for malignant [facility] 00:00:00 neoplasm of colon Medical Ce nter (procedure) [code = 689083967] Future Scheduled 1969 Sigmoidoscopy [code = [facility] S[facility]oscopy] Medical Cente r Future Scheduled 1969 CT Colonography (combo) [facility] 00:00:00 [code = CT Colonography [facility] (combo)] Future Scheduled 1969 Screening for malignant [facility] 00:00:00 neoplasm of colon Medical Ce nter (procedure) [code = 153611184] Future Scheduled 1969 Screening for malignant [facility] 00:00:00 neoplasm of colon Medical Ce nter (procedure) [code = 736558957] Future Scheduled 1969 Screening for malignant [facility] 00:00:00 neoplasm of colon Medical Ce nter (procedure) [code = 407274486] Future Scheduled 1969 Screening for malignant [facility] 00:00:00 neoplasm of colon Medical Ce nter (procedure) [code = 195041661] Future Scheduled 1969 Sigmoidoscopy [code = [facility] S[facility]oscopy] Medical Cente r Future Scheduled 1969 CT Colonography (combo) [facility] 00:00:00 [code = CT Colonography [facility] (combo)] Future Scheduled 1969 Screening for malignant [facility] 00:00:00 neoplasm of colon Medical Ce nter (procedure) [code = 700552038] Future Scheduled 1969 Screening for malignant [facility] 00:00:00 neoplasm of colon Medical Ce nter (procedure) [code = 386276847] Future Scheduled 1969 Screening for malignant [facility] 00:00:00 neoplasm of colon Medical Ce nter (procedure) [code = 580622486] Future Scheduled 1969 Screening for malignant [facility] 00:00:00 neoplasm of colon Medical Ce nter (procedure) [code = 017172552] Future Scheduled 1969 Sigmoidoscopy [code = [facility] S[facility]oscopy] Medical Cente r Future Scheduled 1969 CT Colonography (combo) [facility] 00:00:00 [code = CT Colonography [facility] gena Center (combo)] Future Scheduled 1969 Screening for malignant [facility] Test 00:00:00 neoplasm of colon Medical Ce nter (procedure) [code = 071847943] Future Scheduled 1969 Screening for malignant [facility] Test 00:00:00 neoplasm of colon Medical Ce nter (procedure) [code = 215730081] Future Scheduled 1969 Screening for malignant [facility] Test 00:00:00 neoplasm of colon Medical Ce nter (procedure) [code = 481817938] Future Scheduled 1969 Screening for malignant [facility] Test 00:00:00 neoplasm of colon Medical Ce nter (procedure) [code = 535890391] Future Scheduled 1970 Sigmoidoscopy [code = [facility]] Medical Cente r Future Scheduled 1969 CT Colonography (combo) [facility] Test 00:00:00 [code = CT Colonography Medi gena Center (combo)] Future Scheduled 1969 Screening for malignant [facility] Test 00:00:00 neoplasm of colon Medical Ce nter (procedure) [code = 655561223] Future Scheduled 1969 Screening for malignant [facility] Test 00:00:00 neoplasm of colon Medical Ce nter (procedure) [code = 869226090] Future Scheduled 1969 Screening for malignant [facility] Test 00:00:00 neoplasm of colon Medical Ce nter (procedure) [code = 124462167] Future Scheduled 1969 Screening for malignant [facility] Test 00:00:00 neoplasm of colon Medical Ce nter (procedure) [code = 174943908] Future Scheduled 1970 Sigmoidoscopy [code = [facility] S[facility]oidoscopy] Medical Kelbyvanesa r Goal Plan of Care Note [code = 48879-0] Goal Plan of Care Note [code = 23191-0] Goal Plan of Care Note [code = 74852-7] Goal Plan of Care Note [code = 04344-2] Goal Plan of Care Note [code = 20443-8] Goal Plan of Care Note [code = 09577-9] Goal Plan of Care Note [code = 84596-5] Goal Plan of Care Note [code = 19491-2] Goal Plan of Care Note [code = 28938-5] Goal Plan of Care Note [code = 32237-4] Goal Plan of Care Note [code = 31290-2] Goal Plan of Care Note [code = 54020-1] Goal Plan of Care Note [code = 47226-6] Encounters Start End Encounter Admission Attending Care Care Encounter Source Date/Time Date/Time Type Type Clinicians Facility Department ID 2022-04-02 2022-04-02 [facility] [id number] Rangel 10:00:27 10:00:27 39730 F Jesse 2022-04-02 2022-04-02 Outpatient [id number] 00:00:00 00:00:00 Visit [id number] 2022-02-16 2022-02-22 Hospital [facility] [id number] 08:59:00 13:33:00 Encounter Clinton Carpenter Nejmudin Res[facility] 2022-02-16 2022-02-[address] [facility] [id number] [facility] 08:59:00 13:33:00 JOHN 2022-02-16 2022-02-22 [facility] [id number] 08:59:00 13:33:00 Encounter John Carpenterhammad Jian [facility] 2022-02-17 2022-02-17 Orders [facility] [id number] 00:00:00 00:00:00 [facility] 2022-02-17 2022-02-17 Orders [facility] [id number] 00:00:00 00:00:00 [facility] 2022-02-16 2022-02-16 Telephone [facility] [id number] 00:[facility] 00:00:00 [facility] 2022-02-16 2022-02-16 Telephone [facility] [id number] [facility] [address] 00:00:00 00:00:00 [facility] Results Test Description Test Time Test Comments Results Result Comments Source POC-Glucose meter 2022-02-22 10:51:30 Test Item Value Reference Range Interpretation Comme nts POC-Glucose Meter (test code = 114 mg/dL 70-110 H : TESTED AT [place] [address]) [facility], 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 30: Nut Packer/Techni lorna ID = [id number] for DAGMAR Kennedy Lab Interpretation (test Abnormal code = 73837-9) [facility]-Glucose [id number] 10:51:30 Test Item Value Reference Range Interpretation Comments POC-Glucose Meter (test 114 mg/dL 70-110 H : TE STED AT [facility] code = 1538) [address] [facility], 770 30: Nut Packer/Techni lorna ID = [id number] for STEPHEN -Michelet, [place] Lab Interpretation (test Abnormal code = 78388-3) [facility] [id number] 10:51:30 Test Item Value Reference Range Interpretation Comments POC-Glucose Meter (test 114 mg/dL 70-110 H : TE STED AT [facility] code = 1538) [address] [place] [address], 770 30: Nut Packer/Techni lorna ID = [id number] for STEPHEN -Michelet, [place] Lab Interpretation (test Abnormal code = 89479-1) [facility]-Glucose [id number] 10:51:30 Test Item Value Reference Range Interpretation Comments POC-Glucose Meter (test 114 mg/dL 70-110 H : TE STED AT [facility] code = 1538) [address] [place] [address], [facility] 30: Nut Packer/Techni lorna ID = [id number] for STEPHEN -Michelet, [place] Lab Interpretation (test Abnormal code = 60415-4) [facility]-GLUCOSE [id number] 10:51:30 Test Item Value Reference Range Interpretation Comments POC-GLUCOSE METER 114 mg/dL 70-110 H : [facility]ED [facility] (BEAKER) (test code [facility], = 1538) [address]: Nut Packer/Techni lorna ID = [id number] for TYE Murry -BRANDT Tafoya DOUGLAS POCT-GLUCOSE [id number] 08:00:51 Test Item Value Reference Range Interpretation Comments POC-GLUCOSE METER 108 mg/dL 70-110 : TESTED A T [facility] 6720 (BEAKER) (test code [facility], = 1538) 87228: Nut Packer/Techni lorna ID = [id number] for TYE S -MONA TafoyaAND DOUGLAS BASIC METABOLIC [id number] 04:58:14 Test Item Value Reference Range Interpretation [...] (test code = 697) EGFR (BEAKER) 41 Interpretati on of eGFR (test code = mL/min/1.73 values [...] not appl icable for dialysis patien ts Nut Packer ID - PIAYA LPOCT-GLUCOSE [id number] 23:40:04 Test Item Value Reference Range Interpretation Comments POC-GLUCOSE METER 122 mg/dL 70-110 H : TESTED A T [facility] 6720 (BEAKER) (test code = [facility], 1538) 66899: Nut Packer/Techni lorna ID = [id number] for BRAD FAN POCT-GLUCOSE [id number] 16:33:39 Test Item Value Reference Range Interpretation Comments POC-GLUCOSE METER 85 mg/dL 70-110 : TESTED A T [facility] 6720 (BEAKER) (test code = [facility], 1538) 22001: Nut Packer/Techni lorna ID = [id number] for BRANDT Rodriguez BLOOD [id number] 16:00:53 Test Item Value Reference Range Interpretation Comments CULTURE (BEAKER) (test No growth in 5 days code = 1095) BLOOD [id number] 15:00:51 Test Item Value Reference Range Interpretation Comments CULTURE (BEAKER) (test No growth in 5 days code = 1095) POCT-GLUCOSE [id number] 11:40:47 Test Item Value Reference Range Interpretation Comments POC-GLUCOSE METER 235 mg/dL 70-110 H : TESTED A T [facility] 6720 (BEAKER) (test code [facility], = 1538) 39949: Nut Packer/Techni lorna ID = [id number] for BRANDT Rodriguez DOUGLAS POCT-GLUCOSE [id number] 07:50:40 Test Item Value Reference Range Interpretation Comments POC-GLUCOSE METER 211 mg/dL 70-110 H : TESTED A T [facility] 6720 (BEAKER) (test code [facility], = 1538) 40771: Nut Packer/Techni lorna ID = [id number] for BRANDT Rodriguez DOUGLAS BASIC METABOLIC [id number] 05:05:15 Test Item Value Reference Range Interpretation [...] rted eGFR is based on the CKD-EPI 1 equation t hat does not use a race coefficientEsti mated GFR is not as accur ate as Creatinine Adriana cj in predicting glom erular filtration rate . Estimated GFR is not appl icable for dialysis patien ts Nut Packer ID - ALONZO WPOCT-GLUCOSE [id number] 00:28:41 Test Item Value Reference Range Interpretation Comments POC-GLUCOSE METER 344 mg/dL 70-110 H : TESTED A T [facility] 6720 (BEAKER) (test code = [place], 1538) 46935: Nut Packer/Techni lorna ID = [id number] for Elva Tsang MR, SPINE, CERVICAL, [id number] 21:04:00Unlisted Reason for Exam - Click Yes and Enter Reason Below->YesUnlisted Reason for Exam->questionable C3 marrow lesion, eval for [facility] 1970 Sex: FFINAL REPORT MR, SPINE, [...] procedures is suggested.Reason for exam:->FB chestReason for exam:->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 Please see CXR 02/16Should this be performed at the bedside?->Yes [facility] 1970 Sex: [...] Gay MDReport Verified Date/Time: 02/20/2022 16:24:33 POCT-GLUCOSE [id number] 13:02:48 Test Item Value Reference Range Interpretation Comments POC-GLUCOSE METER 200 mg/dL 70-110 H : TESTED A T [facility] 6720 (BEAKER) (test code [facility], = 1538) 96126: Nut Packer/Techni lorna ID = [id number] for BRANDT Rodriguez [id number] 07:26:31 Test Item Value Reference Range Interpretation Comments MAGNESIUM (BEAKER) (test code = 1.9 mg/dL 1.6-2.6 627) Nut Packer ID - [id number] 07:26:31 Test Item Value Reference Range Interpretation Comments PHOSPHORUS (BEAKER) (test code = 3.1 mg/dL 2.3-4.7 604) Nut Packer ID - BSCOMPREHENSIVE METABOLIC [id number] 07:26:30 Test Item Value Reference Range Interpretation [...] (test code = 347) EGFR (BEAKER) 33 Interpretati on of eGFR (test code = 1092) mL/min/1.73 [...] not appl icable for dialysis patien ts Nut Packer ID - BSCBC W/PLT COUNT & AUTO [id number] 06:55:28 Test Item Value Reference Range Interpretation [...] PERCENT (BEAKER) (test code = 2801) POCT-GLUCOSE [id number] 18:22:38 Test Item Value Reference Range Interpretation Comments POC-GLUCOSE METER 159 mg/dL 70-110 H : TESTED A T [facility] 6720 (BEAKER) (test code = [facility], 1538) 30[address]: Nut Packer/Techni lorna ID = [id number] for ALLEN WU POCT-GLUCOSE [id number] 16:27:46 Test Item Value Reference Range Interpretation Comments POC-GLUCOSE METER 165 mg/dL 70-110 H : TESTED A T [facility] 6720 (BEAKER) (test code [facility], = 1538) 81907: Nut Packer/Techni lorna ID = [id number] for Dianna sage (contract)Cori VITAMIN D, [id number] 14:54:47 Test Item Value Reference Range Interpretation Comments VITAMIN D 25-OH (BEAKER) (test code 8.3 ng/mL 6.6-49.9 = 2764) Effective 03/06/2017: Reference Range ChangeNew: 6.6-49.9 ng/mL Previous: 13.0- 47.8 ng/mLRecommendedVitamin D Target Range: 30.0-40.0 ng/mLOperator ID Shree CONNIE DPOCT-GLUCOSE [id number] 12:56:46 Test Item Value Reference Range Interpretation Comments POC-GLUCOSE METER 199 mg/dL 70-110 H : TESTED A T [facility] 6720 ([employer]) (test code [facility], = 1538) 92016: Nut Packer/Techni lorna ID = [id number] for Dianna sage (contract), Cori nubia POCT-GLUCOSE [id number] 08:25:06 Test Item Value Reference Range Interpretation Comments POC-GLUCOSE METER 109 mg/dL 70-110 : TESTED A T [facility] 6720 ([employer]) (test code [facility], = 1538) 63269: Nut Packer/Techni lorna ID = [id number] for Dianna sage (contract), Cori nubia PTH, [id number] 03:05:59 Test Item Value Reference Range Interpretation Comments PARATHYROID HORMONE INTACT 176.0 pg/mL 8.5-72.5 H (AKER) (test code = 577) Nut Packer ID - LENY [id number] 03:01:19 Test Item Value Reference Range Interpretation Comments MAGNESIUM (BEAKER) (test code = 2.0 mg/dL 1.6-2.6 627) Nut Packer ID - LENY [id number] 03:01:19 Test Item Value Reference Range Interpretation Comments PHOSPHORUS (BEAKER) (test code = 3.3 mg/dL 2.3-4.7 604) Nut Packer ID - LENY LCOMPREHENSIVE METABOLIC [id number] 03:01:18 Test Item Value Reference Range Interpretation [...] St age Description sq m Result G1 Norm al or high >=90 G2 Mildly decreased 60-89 [...] not appl icable for dialysis patien ts Nut Packer ID - PIAYA LCBC W/PLT COUNT & AUTO [id number] 02:49:55 Test Item Value Reference Range Interpretation [...] PERCENT (BEAKER) (test code = 2801) POCT-GLUCOSE [id number] 22:13:25 Test Item Value Reference Range Interpretation Comments POC-GLUCOSE METER 126 mg/dL 70-110 H : TESTED Sharon Conte [facility] 6720 (BEAKER) (test code = [place], 1538) [address]: Nut Packer/Techni lorna ID = [id number] for Sylvia Fountain POCT-GLUCOSE [id number] 17:43:00 Test Item Value Reference Range Interpretation Comments POC-GLUCOSE METER 182 mg/dL 70-110 H : TESTED A T [facility] 6720 (BEAKER) (test code = [place], 1538) 17292: Nut Packer/Techni lorna ID = [id number] for Ok oroafor, [place] POCT-GLUCOSE [id number] 13:13:29 Test Item Value Reference Range Interpretation Comments POC-GLUCOSE METER 129 mg/dL 70-110 H : TESTED A T [facility] 6720 (BEAKER) (test code = [facility] [place] [facility], 1538) 98219: Nut Packer/Techni lorna ID = [id number] for Ok oroafor, [place] 2D Echo W/Doppler(CW/PW/Color)2022-02-18 12:43:42Ejection FractionSLEH ECHO [facility] W[facility]Doppler(CW/PW/Color)2022-02-18 12:43:42Ejection FractionSLEH ECHO HEART[facility] W/Doppler(CW/PW/Color) 2022-02-18 12:43:42Ejection FractionSLEH ECHO HEART[facility] W/Doppler(CW/PW/Color)2022-02-18 12:43:42Ejection FractionSLEH ECHO HEARTLAB [facility] W/Doppler(CW/PW/Color)2022-02-18 12:43:42Ejection FractionSLEH ECHO HEARTLAB [facility] [id number] 12:11:08 Test Item Value Reference Range Interpretation Comments Result (test code = 6463-4) No MRSA isolated [facility] [id number] 12:11:08 Test Item Value Reference Range Interpretation Comments Result (test code = 6463-4) No MRSA isolated [facility] [id number] 12:11:08 Test Item Value Reference Range Interpretation Comments Result (test code = 6463-4) No [facility] isolated [facility] [id number] 12:11:08 Test Item Value Reference Range Interpretation Comments Result (test code = 6463-4) No MRSA isolated [facility] [id number] 12:11:08 Test Item Value Reference Range Interpretation Comments Result (test code = 6463-4) No MRSA isolated [facility] [id number] 12:11:08 Test Item Value Reference Range Interpretation Comments CULTURE (BEATRIZ) (test code No MRSA isolated = 1095) POCT-GLUCOSE [id number] 09:36:58 Test Item Value Reference Range Interpretation Comments POC-GLUCOSE METER 148 mg/dL 70-110 H : TESTED [facility] T [facility] (BEATRIZ) (test code = [place], 1538) 60742: Nut Packer/Techni lorna ID = [id number] for Ok oroafor, [place] U/S, RENAL, [id number] 09:06:00Reason for exam:->[facility] : 1970 Sex: [...] MDReport Verified Date/Time: 02/18/2022 09:06:30 Reading Location: [facility] B1 C013Y CT Body Reading Room POCT-GLUCOSE [id number] 05:45:20 Test Item Value Reference Range Interpretation Comments POC-GLUCOSE METER 124 mg/dL 70-110 H : TESTED A T [facility] 6720 (BEAKER) (test code = [place], 1538) 21641: Nut Packer/Techni lorna ID = [id number] for Yulissa Ajissa COMPREHENSIVE METABOLIC [id number] 05:39:23 Test Item Value Reference Range Interpretation [...] not appl icable for dialysis patien ts Nut Packer ID - LENY [id number] 04:49:24 Test Item Value Reference Range Interpretation Comments MAGNESIUM (BEAKER) (test code = 2.0 mg/dL 1.6-2.6 627) Nut Packer ID - LENY [id number] 04:49:24 Test Item Value Reference Range Interpretation Comments PHOSPHORUS (BEAKER) (test code = 3.1 mg/dL 2.3-4.7 604) Nut Packer ID - LENY LCBC W/PLT COUNT & AUTO [id number] 04:26:28 Test Item Value Reference Range Interpretation [...] PERCENT (BEAKER) (test code = 2801) POCT-GLUCOSE [id number] 23:04:45 Test Item Value Reference Range Interpretation Comments POC-GLUCOSE METER 165 mg/dL 70-110 H : TESTED Sharon Conte [facility] 6720 ([facility]) (test code = [facility], 1538) [address]: Nut Packer/Techni lorna ID = [id number] for Christopher Wolff T4, [id number] 18:45:38 Test Item Value Reference Range Interpretation Comments FREE T4 (BEAKER) (test code = 655) 1.07 ng/dL 0.70-1.48 Nut Packer ID - LINDEN MPOCT-GLUCOSE [id number] 18:38:50 Test Item Value Reference Range Interpretation Comments POC-GLUCOSE METER 177 mg/dL 70-110 H : TESTED Sharon T [facility] 6720 ([facility]) (test code = [facility], 153) 90372: Nut Packer/Techni lorna ID = [id number] for Nathalia Schroeder MR, BRAIN, WITHOUT [id number] 18:25:00Hypertensive urgency, r/o PRES Also febrile, r/o meningitis/encephalitis Unlisted Reason for Exam - Click Yes and Enter Reason Below->No Does the patient have an implanted electronic device?->[facility] : 1970 Sex: FFINAL REPORT MR, BRAIN, WITHOUT CONTRAST INDICATION: Meningitis/COLOR SPRAYER infection suspected TECHNIQUE: Multiplanar, multisequence MR imaging [...] for primary malignancy is suggested. Signed: Elizabeth Byrnes MDReport Verified Date/Time: 02/17/2022 18:25:45 TSH/FREE T4 IF [id number] 18:06:03 Test Item Value Reference Range Interpretation Comments THYROID STIMULATING HORMONE 0.234 uIU/mL 0.350-4.940 L (BEAKER) (test code = 772) Nut Packer ID - LINDEN MPOCT-GLUCOSE [id number] 16:40:45 Test Item Value Reference Range Interpretation Comments POC-GLUCOSE METER 160 mg/dL 70-110 H : TESTED A T [facility] 6720 (BEAKER) (test code [facility], = 1538) 82112: Nut Packer/Techni lorna ID = [id number] for Tori reyes (contract), Nne ka POCT-GLUCOSE [id number] 15:26:11 Test Item Value Reference Range Interpretation Comments POC-GLUCOSE METER 76 mg/dL 70-110 : TESTED A T [facility] 6720 (BEAKER) (test code = [facility], 1538) 45337: Nut Packer/Techni lorna ID = [id number] for Connor Roque POCT-GLUCOSE [id number] 14:21:45 Test Item Value Reference Range Interpretation Comments POC-GLUCOSE METER 108 mg/dL 70-110 : TESTED A T [facility] 6720 (BEAKER) (test code [facility], = 1538) 02663: Nut Packer/Techni lorna ID = [id number] for Tori uomcandelario (contract), Nne ka POCT-GLUCOSE [id number] 13:29:26 Test Item Value Reference Range Interpretation Comments POC-GLUCOSE METER 73 mg/dL 70-110 : TESTED A T [facility] 6720 (BEAKER) (test code = [facility], 1538) 35790: Nut Packer/Techni lorna ID = [id number] for Tori uwendy (contract), Nne ka BASIC METABOLIC [id number] 13:27:42 Test Item Value Reference Range Interpretation [...] not appl icable for dialysis patien ts Nut Packer ID - LINDEN [id number] 12:16:33 Test Item Value Reference Range Interpretation Comments MAGNESIUM (BEAKER) (test code = 1.8 mg/dL 1.6-2.6 627) Nut Packer ID - LINDEN [id number] 12:16:33 Test Item Value Reference Range Interpretation Comments PHOSPHORUS (BEAKER) (test code = 2.2 mg/dL 2.3-4.7 L 604) Nut Packer ID - LINDEN MPOCT-GLUCOSE [id number] 11:47:53 Test Item Value Reference Range Interpretation Comments POC-GLUCOSE METER 108 mg/dL 70-110 : TESTED A T [facility] 6720 (BEAKER) (test code [facility], = 1538) 35982: Nut Packer/Techni lorna ID = [id number] for Tori reyes (contract), Nnvanesa harrell HEMOGLOBIN [id number] 10:38:53 Test Item Value Reference Range Interpretation [...] 5.7- 6.4% indicates increased risk for diabetes (prediabetes)."Nut Packer ID - ADMPOCT- GLUCOSE [id number] 10:16:09 Test Item Value Reference Range Interpretation Comments POC-GLUCOSE METER 160 mg/dL 70-110 H : TESTED A T [facility] 6720 (BEAKER) (test code [facility], = 1538) 28108: Nut Packer/Techni lorna ID = [id number] for Tori reyes (contract), Nne ka BASIC METABOLIC [id number] 10:02:11 Test Item Value Reference Range Interpretation [...] rted eGFR is based on the CKD-EPI 2021 equation t hat does not use a race coefficientEsti mated GFR is not as accur ate as Creatinine Adriana corona in predicting glom erular filtration rate . Estimated GFR is not appl icable for dialysis patien ts Nut Packer ID - LINDEN MPOCT-GLUCOSE [id number] 09:12:51 Test Item Value Reference Range Interpretation Comments POC-GLUCOSE METER 203 mg/dL 70-110 H : TESTED A T [facility] 6720 (BEAKER) (test code = [facility] [place] [facility], 1538) 28050: Nut Packer/Techni lorna ID = [id number] for Rey hughesafor, Letso POCT-GLUCOSE [id number] 08:24:37 Test Item Value Reference Range Interpretation Comments POC-GLUCOSE METER 185 mg/dL 70-110 H : TESTED A T [facility] 6720 (BEAKER) (test code = [facility] [place] [facility], 1538) 48272: Nut Packer/Techni lorna ID = [id number] for Ok oroafor, [place] BASIC METABOLIC [id number] 06:50:10 Test Item Value Reference Range Interpretation [...] not appl icable for dialysis patien ts Nut Packer ID - LINDEN MPOCT-GLUCOSE [id number] 05:33:55 Test Item Value Reference Range Interpretation Comments POC-GLUCOSE METER 166 mg/dL 70-110 H : TESTED A T [facility] 6720 (BEAKER) (test code [facility], = 1538) 40615: Nut Packer/Techni lorna ID = [id number] for KARUNA NARAYANAN CBC W/PLT COUNT & AUTO [id number] 04:40:04 Test Item Value Reference Range Interpretation [...] 0-1 GRANULOCYTES-RELATIVE PERCENT (BEAKER) (test code = 4513) COMPREHENSIVE METABOLIC [id number] 04:25:06 Test Item Value Reference Range Interpretation [...] not appl icable for dialysis patien ts Nut Packer ID - LINDEN [id number] 04:18:46 Test Item Value Reference Range Interpretation Comments PHOSPHORUS (BEAKER) (test code = 1.8 mg/dL 2.3-4.7 L 604) Nut Packer ID - LINDEN [id number] 04:18:45 Test Item Value Reference Range Interpretation Comments MAGNESIUM (BEAKER) (test code = 1.3 mg/dL 1.6-2.6 L 627) Nut Packer ID - LINDEN MPOCT-GLUCOSE [id number] 03:06:33 Test Item Value Reference Range Interpretation Comments POC-GLUCOSE METER 187 mg/dL 70-110 H : TESTED A T [facility] 6720 (BEAKER) (test code = [place], 1538) 33040: Nut Packer/Techni lorna ID = [id number] for Al i Annemarie BASIC METABOLIC [id number] 02:20:38 Test Item Value Reference Range Interpretation [...] high >=90 G2 Mildly decreased 60-89 G3a Mild ly to moderately 45-5 9 G3b Moderately to [...] not appl icable for dialysis patien ts Nut Packer ID - LINDEN MPOCT-GLUCOSE [id number] 01:41:42 Test Item Value Reference Range Interpretation Comments POC-GLUCOSE METER 191 mg/dL 70-110 H : TESTED A T [facility] 6720 ([employer]) ([facility], = 1538) 69684: Nut Packer/Techni lorna ID = [id number] for KARUNA NARAYANAN POCT-GLUCOSE [id number] 00:11:09 Test Item Value Reference Range Interpretation Comments POC-GLUCOSE METER 147 mg/dL 70-110 H : TESTED A T [facility] 6720 ([employer]) (test code = [facility]ET[facility], 1538) 24859: Nut Packer/Techni lorna ID = [id number] for Al i, Annemarie RAD, ABDOMEN/KUB, 1 VIEW [id number] 22:52:00Reason for exam:->NGT placementShould this be performed at the bedside?->Yes [facility] : 1970 Sex: [...] by: ELVA SINGH MD on02/16/2022 10:52 PMPOCT-GLUCOSE [id number] 22:29:37 Test Item Value Reference Range Interpretation Comments POC-GLUCOSE METER 144 mg/dL 70-110 H : TESTED A T [facility] 6720 ([employer]) (test code = PRIETO [facility], 1538) [id number]: Nut Packer/Techni lorna ID = [id number] for Al i, Annemarie RAD, CHEST, 1 VIEW, NON [id number] 22:12:00Reason for exam:->eval lung fieldsShould this be performed at the bedside?->Yes [facility] : 1970 Sex: [...] Singh Verified Date/Time: 02/16/2022 22:12:53 Blood gas, [id number] 21:52:37 Test Item Value Reference Range Interpretation Comments pH, Arterial (test code 7.37 7.35-7.45 = 2744-1) pCO2, Arterial (test 53 See_Comment H [Autom ated message] code = 2019-) The system [employer] generated this result transmit amina reference range : 35 - 45 mm Hg. The reference range was not used to interpret this result as normal/abnormal . pO2, Arterial (test 120 See_Comment H [Automa amina message] code = 2703-7) The system [employer] generated this result transmit amina reference range [...] 32 Lab Interpretation Abnormal (test code = 68657-6) [facility] [id number] 21:52:37 Test Item Value Reference Range Interpretation Comments pH, Arterial (test code 7.37 7.35-7.45 = 2744-1) pCO2, Arterial (test 53 See_Comment H [Autom ated message] code = 2019) The system [facility] generated this result transmit amina reference range : 35 - 45 mm Hg. The reference range was not used to interpret this result as normal/abnormal . pO2, Arterial (test 120 See_Comment H [Automa amina message] code = 2703-7) The system [facility] generated this result transmit amina reference range [...] 32 Lab Interpretation Abnormal (test code = 40246-1) [facility], [id number] 21:52:37 Test Item Value Reference Range Interpretation Comments pH, Arterial (test code 7.37 7.35-7.45 = 2744-1) pCO2, Arterial (test 53 See_Comment H [Autom ated message] code = 2019-) The system [employer] generated this result transmit amina reference range : 35 - 45 mm Hg. The reference range was not used to interpret this result as normal/abnormal . pO2, Arterial (test 120 See_Comment H [Automa amina message] code = 2703-7) The system [employer] generated this result transmit amina reference range [...] 32 Lab Interpretation Abnormal (test code = 83180-3) [facility] gas, [id number] 21:52:37 Test Item Value Reference Range Interpretation Comments pH, Arterial (test code 7.37 7.35-7.45 = 2744-1) pCO2, Arterial (test 53 See_Comment H [Autom ated message] code = 2018-12) The system [employer] generated this result transmit amina reference range : 35 - 45 mm Hg. The reference range was not used to interpret this result as normal/abnormal . pO2, Arterial (test 120 See_Comment H [Automa amina message] code = 2703-7) The system [employer] generated this result transmit amina reference range [...] 32 Lab Interpretation Abnormal (test code = 59370-7) [facility], [id number] 21:52:37 Test Item Value Reference Range Interpretation Comments pH, Arterial (test code 7.37 7.35-7.45 = 2744-1) pCO2, Arterial (test 53 See_Comment H [Autom ated message] code = 2019-8) The system [employer] generated this result transmit amina reference range : 35 - 45 mm Hg. The reference range was not used to interpret this result as normal/abnormal . pO2, Arterial (test 120 See_Comment H [Automa amina message] code = 2703-7) The system [employer] generated this result transmit amina reference range [...] = 8310-5) FIO2 (test code = 1819) 32.0 Lab Interpretation Abnormal (test code = 09985-9) [facility], [id number] 21:52:37 Test Item Value Reference Range Interpretation [...] (BEAKER) (test code = 1819) 32.0 KETONE, [id number] 21:38:46 Test Item Value Reference Range Interpretation Comments KETONES, BLOOD (BEAKER) (test code 0.9 mmol/L <0.4 H = 1103) POCT-GLUCOSE [id number] 21:19:53 Test Item Value Reference Range Interpretation Comments POC-GLUCOSE METER 173 mg/dL 70-110 H : TESTED A T [facility] 6720 (BEAKER) (test code = [place], 1538) [address]: Nut Packer/Techni lorna ID = [id number] for Annemarie Matias i SARS-CoV2/RT-PCR (Symptomatic ONLY)2022-02-16 21:03:01 Test Item Value Reference Range Interpretation Comments SARS-COV2/RT-PCR Negative Negative (test code = 27275-2) SARS-COV-2 PERFORMING [facility] (test code = 58073-4) JYOTI (test code = JYOTI) Endogenous inhibition [...] of the Act. Fact Sheet for Healthcare Providers:https://www.Skemaz ideParking Panda.[employer]/sites/default/f colt/product/documents/F act_Sheet_HC_Providers_L uvq_PPWI-HlH-7.pdf Fact Sheet for Healthcare Patients:https://www.When You Wish del.com/sites/default/fi les/product/documents/Fa ct_Sheet_Patients_Lyra_S ARS-CoV-2.pdf Performing Laboratory:[facility] [place] [address].[address]-CoV2/RT-PCR (Symptomatic ONLY)2022-02-16 21:03:01 Test Item Value Reference Range Interpretation Comments SARS-COV2/RT-PCR Negative Negative (test code = 74021-8) SARS-COV-2 PERFORMING [facility] (test code = 60835-6) JYOTI (test code = JYOTI) Endogenous inhibition [...] of the Act. Fact Sheet for Healthcare Providers:https://www.Soufunl.[employer]/sites/default/f colt/product/documents/F act_Sheet_HC_Providers_L gce_GBVL-MwP-1.pdf Fact Sheet for Healthcare Patients:https://www.When You Wish del.[employer]/sites/default/fi les/product/documents/Fa ct_Sheet_Patients_Lyra_S ARS-CoV-2.pdf Performing Laboratory:[facility] [facility].[address]ARS-CoV2/RT-PCR (Symptomatic ONLY)2022-02-16 21:03:01 Test Item Value Reference Range Interpretation Comments SARS-COV2/RT-PCR Negative Negative (test code = 83995-2) SARS-COV-2 PERFORMING [facility] (test code = 00321-9) JYOTI (test code = JYOTI) Endogenous inhibition [...] of the Act. Fact Sheet for Healthcare Providers:https://www.The Gr[employer] Keeper/sites/default/f colt/product/documents/F act_Sheet_HC_Providers_L lqa_MCMH-OrA-7.pdf Fact Sheet for Healthcare Patients:https://www.[employer]/sites/default/fi les/product/documents/Fa ct_Sheet_Patients_Lyra_S ARS-CoV-2.pdf Performing Laboratory:[facility] [place], [place] [address] [place], [place] [address]ARS-CoV2/RT-PCR (Symptomatic ONLY)2022-02-16 21:03:01 Test Item Value Reference Range Interpretation Comments SARS-COV2/RT-PCR Negative Negative (test code = 14969-9) SARS-COV-2 PERFORMING [facility] (test code = 55252-2) JYOTI (test code = JYOTI) Endogenous inhibition [...] of the Act. Fact Sheet for Healthcare Providers:https://www.[employer]eeper/sites/default/f colt/product/documents/F act_Sheet_HC_Providers_L zmu_YFLI-KvV-1.pdf Fact Sheet for Healthcare Patients:https://www.[employer]/sites/default/fi les/product/documents/Fa ct_Sheet_Patients_Lyra_S ARS-CoV-2.pdf Performing Laboratory:[facility] [place] [address] [facility]2022-02-16 21:03:01 Test Item Value Reference Range Interpretation Comments SARS-COV2/RT-PCR Negative Negative (test code = 62369-1) SARS-COV-2 PERFORMING [facility] (test code = 21353-1) JYOTI (test code = JYOTI) Endogenous inhibition [...] of the Act. Fact Sheet for Healthcare Providers:https://www.[employer] Gr[employer] Keeper/sites/default/f colt/product/documents/F act_Sheet_HC_Providers_L fyn_LXQK-NnJ-8.pdf Fact Sheet for Healthcare Patients:https://www.[employer]/sites/default/fi les/product/documents/Fa ct_Sheet_Patients_Lyra_S ARS-CoV-2.pdf Performing Laboratory:[facility]ARS-COV2/RT-PCR ([facility])2022-02-16 21:03:01 Test Item Value Reference Range Interpretation Comments SARS-COV2/RT-PCR (test code = Negative Negative 6394251) SARS-COV-2 PERFORMING LAB (test [facility] code = 1126311) Endogenous inhibition of PCR was detected in [...] of the Act.Fact Sheet for Healthcare Providers:https:// www.Crowdbooster/sites/default/files/product/documents/Fact_Sheet_HC_Providers_Lyr t_QVTM-EgB-4.pdfFactSheet for Healthcare Patients:https://www.wedgies.[employer]/sites/default/files/product/documents/Fact_Sheet _Dzzrjenl_Qljz_PZUQ-HtB-6.pdfPerforming Laboratory:[facility], [place] [address]QIXOA METABOLIC [id number] 20:51:36 Test Item Value Reference Range Interpretation [...] not appl icable for dialysis patien ts Nut Packer ID - BSPOCT-GLUCOSE [id number] 20:33:13 Test Item Value Reference Range Interpretation Comments POC-GLUCOSE METER 127 mg/dL 70-110 H : [facility] (test code = PRIETO [place] [facility], 1538) [address]: Nut Packer/Techni lorna ID = [id number] for Al i, Annemarie POCT-GLUCOSE [id number] 18:17:32 Test Item Value Reference Range Interpretation Comments POC-GLUCOSE METER 210 mg/dL 70-110 H : TESTED A T [facility] 6720 (BEAKER) (test code = PRIETO [place] [facility], 1538) [address]: Nut Packer/Techni lorna ID = [id number] for Ok oroafor, Letso POCT-GLUCOSE [id number] 17:26:57 Test Item Value Reference Range Interpretation Comments POC-GLUCOSE METER 247 mg/dL 70-110 H : TESTED A T [facility] 6720 (BEAKER) (test code [facility], = 1538) [address]: Nut Packer/Techni lorna ID = [id number] for Rebecca rolly, Nella POCT-GLUCOSE [id number] 16:13:16 Test Item Value Reference Range Interpretation Comments POC-GLUCOSE METER 280 mg/dL 70-110 H : TESTED A T [facility] 6720 ([facility]) (test code [facility], = 1538) [address]: Nut Packer/Techni lorna ID = [id number] for Rebecca rolly, Nella Urinalysis w/Microscopic + Reflex to [id number] 15:26:49 Test Item Value Reference Range Interpretation Comments Color, UA (test code Light Yellow = 5778-6) Clarity, UA (test Clear code = 5767-9) Specific [place], UA 1.020 1.001-1.035 (test code = 5811-5) pH, UA (test code = 6.5 5.0-8.0 5803-2) Protein, UA (test 600 mg/dL Negative A code = 13052-6) Glucose, UA (test >1000 mg/dL Negative A code = 365) Ketones, UA (test Trace Negative A code = 2514-8) Bilirubin, UA (test Negative Negative code = 22279-8) Blood, UA (test code Small Negative A = 03722-2) Nitrite, UA (test Negative Negative code = 5802-4) Leukocytes, UA (test Negative Negative code = 5799-2) Urobilinogen, UA 0.2 mg/dL 0.2-1.0 (test code = 34912-7) RBC, UA (test code = 3 See_Comment [Autom ated 59318-4) message] The system which generated this result [...] . Bacteria, UA (test Rare code = 02294-4) Mucus (test code = Rare 8247-9) Crystals, Urine (test None Seen code = 20293-6) Specimen Source (test code = 2795) JYOTI (test code = JYOTI) Nut Packer ID - [auto]Nut Packer ID - tech Lab Interpretation Abnormal (test code = 32091-6) [facility] + Reflex to Culture 2022-02-16 15:26:49 Test Item Value Reference Range Interpretation Comments Color, UA (test code Light Yellow = 5778-6) Clarity, UA (test Clear code = 5767-9) Specific [place], UA 1.020 1.001-1.035 (test code = 5811-5) pH, UA (test code = 6.5 5.0-8.0 5803-2) Protein, UA (test 600 mg/dL Negative A code = 12060-5) Glucose, UA (test >1000 mg/dL Negative A code = 365) Ketones, UA (test Trace Negative A code = 2514-8) Bilirubin, UA (test Negative Negative code = 80971-3) Blood, UA (test code Small Negative A = 14933-2) Nitrite, UA (test Negative Negative code = 5802-4) Leukocytes, UA (test Negative Negative code = 5799-2) Urobilinogen, UA 0.2 mg/dL 0.2-1.0 (test code = 92532-1) RBC, UA (test code = 3 See_Comment [Autom ated 19712-2) message] The system which generated this result [...] . Bacteria, UA (test Rare code = 70857-1) Mucus (test code = Rare 8247-9) Crystals, Urine (test None Seen code = 00838-6) Specimen Source (test code = 2795) JYOTI (test code = JYOTI) Nut Packer ID - [auto]Nut Packer ID - tech Lab Interpretation Abnormal (test code = 93721-8) [facility]/Microscopic + Reflex to Culture 2022-02-16 15:26:49 Test Item Value Reference Range Interpretation Comments Color, UA (test code Light Yellow = 5778-6) Clarity, UA (test Clear code = 5767-9) Specific [place], UA 1.020 1.001-1.035 (test code = 5811-5) pH, UA (test code = 6.5 5.0-8.0 5803-2) Protein, UA (test 600 mg/dL Negative A code = 71563-7) Glucose, UA (test >1000 mg/dL Negative A code = 365) Ketones, UA (test Trace Negative A code = 2514-8) Bilirubin, UA (test Negative Negative code = 40555-3) Blood, UA (test code Small Negative A = 92345-7) Nitrite, UA (test Negative Negative code = 5802-4) Leukocytes, UA (test Negative Negative code = 5799-2) Urobilinogen, UA 0.2 mg/dL 0.2-1.0 (test code = 48956-0) RBC, UA (test code = 3 See_Comment [Autom ated 44749-1) message] The system which generated this result [...] . Bacteria, UA (test Rare code = 75023-1) Mucus (test code = Rare 8247-9) Crystals, Urine (test None Seen code = 51833-0) Specimen Source (test code = 2795) JYOTI (test code = JYOTI) Nut Packer ID - [auto]Nut Packer ID - tech Lab Interpretation Abnormal (test code = 03092-4) [facility]Micro[facility]opic + Reflex to Culture 2022-02-16 15:26:49 Test Item Value Reference Range Interpretation Comments Color, UA (test code Light Yellow = 5778-6) Clarity, UA (test Clear code = 5767-9) Specific [place], UA 1.020 1.001-1.035 (test code = 5811-5) pH, UA (test code = 6.5 5.0-8.0 5803-2) Protein, UA (test 600 mg/dL Negative A code = 57757-3) Glucose, UA (test >1000 mg/dL Negative A code = 365) Ketones, UA (test Trace Negative A code = 2514-8) Bilirubin, UA (test Negative Negative code = 63579-3) Blood, UA (test code Small Negative A = 54118-0) Nitrite, UA (test Negative Negative code = 5802-4) Leukocytes, UA (test Negative Negative code = 5799-2) Urobilinogen, UA 0.2 mg/dL 0.2-1.0 (test code = 47674-9) RBC, UA (test code = 3 See_Comment [Autom ated 75301-6) message] The system which generated this result [...] . Bacteria, UA (test Rare code = 76246-1) Mucus (test code = Rare 8247-9) Crystals, Urine (test None Seen code = 88272-1) Specimen Source (test code = 2795) JYOTI (test code = JYOTI) Nut Packer ID - [auto]Nut Packer ID - tech Lab Interpretation Abnormal (test code = 99748-4) [facility]/Microscopic + Reflex to Culture 2022-02-16 15:26:49 Test Item Value Reference Range Interpretation Comments Color, UA (test code Light Yellow = 5778-6) Clarity, UA (test Clear code = 5767-9) Specific [place], UA 1.020 1.001-1.035 (test code = 5811-5) pH, UA (test code = 6.5 5.0-8.0 5803-2) Protein, UA (test 600 mg/dL Negative A code = 92046-4) Glucose, UA (test >1000 mg/dL Negative A code = 365) Ketones, UA (test Trace Negative A code = 2514-8) Bilirubin, UA (test Negative Negative code = 61205-2) Blood, UA (test code Small Negative A = 55750-0) Nitrite, UA (test Negative Negative code = 5802-4) Leukocytes, UA (test Negative Negative code = 5799-2) Urobilinogen, UA 0.2 mg/dL 0.2-1.0 (test code = 28647-5) RBC, UA (test code = 3 See_Comment [Autom ated 51466-6) message] The system which generated this result [...] . Bacteria, UA (test Rare code = 78023-8) Mucus (test code = Rare 8247-9) Crystals, Urine (test None Seen code = 66676-2) Specimen Source (test code = 2795) JYOTI (test code = JYOTI) Nut Packer ID - [auto]Nut Packer ID - tech Lab Interpretation Abnormal (test code = 05516-7) [facility] REFLEX URINE [id number] 15:26:49 Test Item Value Reference Range Interpretation [...] = 1521) SOURCE(BEAKER) (test code = 2795) Nut Packer ID - [auto]Nut Packer ID - techPOCT-GLUCOSE [id number] 15:14:56 Test Item Value Reference Range Interpretation Comments POC-GLUCOSE METER 271 mg/dL 70-110 H : TESTED A T [facility] ([facility]) (test code [facility], = 1538) [address]: Nut Packer/Techni lorna ID = [id number] for Rebecca rolly, Nella POCT-GLUCOSE [id number] 14:27:23 Test Item Value Reference Range Interpretation Comments POC-GLUCOSE METER 285 mg/dL 70-110 H : [facility] ([facility]) (test code = [facility], 1538) [address]: Nut Packer/Techni lorna ID = [id number] for Ok oroafor, Letso POCT-GLUCOSE [id number] 13:36:16 Test Item Value Reference Range Interpretation Comments POC-GLUCOSE METER 342 mg/dL 70-110 H : Notified RN/MD: ([facility]) (test code = TESTED AT [facility] 67[address] 1538) [facility], [address]: Nut Packer/Techni lorna ID = [id number] for On aga, Denise BASIC METABOLIC [id number] 12:34:45 Test Item Value Reference Range Interpretation [...] not appl icable for dialysis patien ts Nut Packer ID - PIAYA LPOCT-GLUCOSE [id number] 12:20:08 Test Item Value Reference Range Interpretation Comments POC-GLUCOSE METER 427 mg/dL 70-110 HH : Notified RN/MD: (BEAKER) (test code = TESTED AT [facility] 3673 8532) [facility], [address]: Nut Packer/Techni lorna ID = [id number] for On Denise restrepo HEPATIC FUNCTION [id number] 12:11:01 Test Item Value Reference Range Interpretation [...] (test code = 13 U/L 6-55 347) Nut Packer ID Shree MICHELE LHIGH SENSITIVITY TROPONIN [id number] 12:07:22 Test Item Value Reference Range Interpretation Comments HIGH SENSITIVITY 10 pg/ml See_Comment [Automated message] TROPONIN I (test code = The system which 9179082) generated this result transmitted ref erence range: <=17. Th e reference range was not used to int erpret this result as normal/abnormal . Nut Packer ID - LENY LThe CONTROLS PROJECT ENGINEER STAT High Sensitivity Troponin-I results should be used in conjunction with other diagnostic information such as ECG, clinical observations and information, and patient symptoms to aid in the diagnosis of MT.LACTIC ACID, [id number] 12:05:20 Test Item Value Reference Range Interpretation Comments LACTATE BLOOD VENOUS (2) (BEAKER) 1.58 mmol/L 0.50-2.20 (test code = 2872) Nut Packer ID - LENY LCBC W/PLT COUNT & AUTO [id number] 11:39:33 Test Item Value Reference Range Interpretation [...] = 2801) RAD, CHEST, 1 VIEW, NON [id number] 11:03:00Reason for exam:->covid positiveHARBOR-[facility]CLA MEDICAL [facility]ENTERName: ROCAEL SANTO : 1970 Sex: [...] Electronically signed by: TERRELL BOYD MD on 211:03 AMPOCT- GLUCOSE [id number] 09:27:22 Test Item Value Reference Range Interpretation Comments POC-GLUCOSE METER 380 mg/dL 70-110 H : TESTED A T [facility] 6720 (BEAKER) (test [facility], = 1538) [address]: Nut Packer/Techni lorna ID = [id number] for Nella Hendricks CBC W/AUTO [id number] 00:00:00 Test Item Value Reference Range Interpretation [...] NUCLEATED RBCS (test code = 0.00 K/UL 56428) CBC W/AUTO [id number] 00:00:00 Test Item Value Reference Range Interpretation [...] NUCLEATED RBCS (test code = 0.00 K/UL 24139) MICROALBUMIN/CREATININE, RANDOM AND [id number] 00:00:00 Test Item Value Reference Range Interpretation Comments CREATININE, URINE, CONC. (test 104.8 MG/DL code = 2072) ALBUMIN, URINE, RANDOM (test code 216.2 MG/DL = 26875) CALC ALBUMIN/CREAT, RND (test 2063 MG/G code = 16164) CBC W/AUTO [id number] 00:00:00 Test Item Value Reference Range Interpretation [...] NUCLEATED RBCS (test code = 0.00 K/UL 98032) MICROALBUMIN/CREATININE, RANDOM AND [id number] 00:00:00 Test Item Value Reference Range Interpretation Comments CREATININE, URINE, CONC. (test 104.8 MG/DL code = 2072) ALBUMIN, URINE, RANDOM (test code 216.2 MG/DL = 21369) CALC ALBUMIN/CREAT, RND (test 2063 MG/G code = 32662) HEMOGLOBIN [id number] 00:00:00 Test Item Value Reference Range Interpretation Comments HEMOGLOBIN A1c (test code = 79105) 9.5 % HEMOGLOBIN [id number] 00:00:00 Test Item Value Reference Range Interpretation Comments HEMOGLOBIN A1c (test code = 78155) 9.5 % HEMOGLOBIN [id number] 00:00:00 Test Item Value Reference Range Interpretation Comments HEMOGLOBIN A1c (test code = 95842) 9.5 % LIPID [id number] 00:00:00 Test Item Value Reference Range Interpretation Comments CHOLESTEROL (test code = 2210) 178 MG/DL TRIGLYCERIDES (test code = 2232) 97 MG/DL HDL CHOLESTEROL (test code = 2220) 68 MG/DL CALC LDL CHOL (test code = 2237) 91 MG/DL RISK RATIO LDL/HDL (test code = 1.34 RATIO 2238) LIPID [id number] 00:00:00 Test Item Value Reference Range Interpretation Comments CHOLESTEROL (test code = 2210) 178 MG/DL TRIGLYCERIDES (test code = 2232) 97 MG/DL HDL CHOLESTEROL (test code = 2220) 68 MG/DL CALC LDL CHOL (test code = 2237) 91 MG/DL RISK RATIO LDL/HDL (test code = 1.34 RATIO 2238) COMPREHENSIVE METABOLIC [id number] 00:00:00 Test Item Value Reference Range Interpretation Comments GLUCOSE (test code = 2217) 212 MG/DL BUN (test code = 2208) 33 MG/DL CREATININE (test code = 2214) 1.35 MG/DL eGFR AMER. (test code 53 ML/MIN/1.73 = 15071) eGFR NON- AMER. (test 45 ML/MIN/1.73 code = 69278) CALC BUN/CREAT (test code = 24 RATIO [...] code = 2219) 14 U/L COMPREHENSIVE METABOLIC [id number] 00:00:00 Test Item Value Reference Range Interpretation Comments GLUCOSE (test code = 2217) 212 MG/DL BUN (test code = 2208) 33 MG/DL CREATININE (test code = 2214) 1.35 MG/DL eGFR AMER. (test code 53 ML/MIN/1.73 = 80510) eGFR NON- AMER. (test 45 ML/MIN/1.73 code = 14397) CALC BUN/CREAT (test code = 24 RATIO [...] CALC GLOBULIN (test code = 3.2 G/DL 224) CALC A/G RATIO (test code = 1.1 RATIO 2233) BILIRUBIN, TOTAL (test code = <0.2 MG/DL 2206) ALKALINE PHOSPHATASE (test 98 U/L code = 2204) AST (test code = 2218) 13 U/L ALT (test code = 2219) 14 U/L LIVER (HEPATIC) FUNCTION [id number] 00:00:00 Test Item Value Reference Range Interpretation [...] = 2219) 14 U/L LIVER (HEPATIC) FUNCTION [id number] 00:00:00 Test Item Value Reference Range Interpretation Comments PROTEIN, TOTAL (test code = 2229) 6.7 G/DL ALBUMIN (test code = 2201) 3.5 G/DL BILIRUBIN, TOTAL (test code = <0.2 MG/DL 2206) BILIRUBIN, DIRECT (test code = <0.2 MG/DL 2021) ALKALINE PHOSPHATASE (test code = 98 U/L 2203) AST (test code = 2218) 13 U/L ALT (test code = 2219) 14 U/L [id number] 00:00:00 Test Item Value Reference Range Interpretation Comments TSH, THIRD GENERATION (test code 0.895 UIU/ML = 2821) [id number] 00:00:00 Test Item Value Reference Range Interpretation Comments TSH, THIRD GENERATION (test code 0.895 UIU/ML = 2821) [id number] 00:00:00 Test Item Value Reference Range Interpretation Comments TSH, THIRD GENERATION (test code 0.895 UIU/ML = 2821)
[2023-01-28] MEDS ORDERED: Nicardipine/NS 25 MG/250 ML KIT IV ONE (14:31)
[2023-01-28 15:02] LABS: Absolute Lymphocytes (CBC) 2.2 K/uL (0.7-4.9); Hematocrit 31.1 % (36.0-45.0); Lymphocytes % 25.4 % (15.3-44.8); MCV 89.3 fL (80-100); Platelets 166 thou/uL (152-406); RBC Red Blood Cell Count 3.48 M/uL (3.86-4.86)
[2023-01-28 15:19] LABS: Protime INR 0.95
--- NOTE | 2023-01-28 15:31 | RAD REPORT ---
EXAM DESCRIPTION: CT - Head Brain Wo Cont - 01/28/2023 3:15 pm CLINICAL HISTORY: HEADACHE COMPARISON: Head Brain Wo Cont dated 02/16/2022; Head Brain Wo Cont dated 12/26/2020 TECHNIQUE: All CT scans are performed using dose optimization technique as appropriate and may inclu de automated exposure control or mA/KV adjustment according to patient size. FINDINGS: No intracranial hemorrhage, hydrocephalus or extra-axial fluid collection.No areas of brai n edema or evidence of midline shift. Right maxillary sinus mucous retention cyst. The calvarium is intact. IMPRESSION: No acute intracranial abnormality.
--- NOTE | 2023-01-28 15:37 | RAD REPORT ---
EXAM DESCRIPTION: RAD - Chest Single View - 01/28/2023 3:23 pm CLINICAL HISTORY: HTN COMPARISON: Chest Single View dated 05/30/2022; Chest Single View dated 04/09/2022; Chest Single View dated 02/16/2022; Chest Single View dated 12/26/2020 FINDINGS: Lines: None. Lungs: No evidence of edema or pneumonia. Pleural: No significant pleural effusions or pneumothorax. Cardiac: The heart size is within normal limits. Mediastinum: Within normal limits. Bones: No acute fractures. Other: None IMPRESSION: No acute cardiopulmonary disease.
[2023-01-28 15:40] LABS: ALT/SGPT 17 U/L (13-56); AST/SGOT 14 U/L (15-37); Albumin 2.3 g/dL (3.4-5.0); Alkaline Phosphatase 119 U/L (45-117); BUN Blood Urea Nitrogen 40 mg/dL (7-18); Bicarbonate 28 mEq/L (21-32); Bilirubin Total 0.2 mg/dL (0.2-1.0); Glomerular Filtration Rate 9 ml/min (=/>90); Glucose Level 124 mg/dL (74-106); Magnesium 2.3 mg/dL (1.6-2.4); NT PRO-BNP 1516 pg/mL (<125); Potassium 3.7 mEq/L (3.5-5.1); Protein, Total 6.5 g/dL (6.4-8.2); Sodium Level 141 mEq/L (136-145); Troponin High Sensitivity 15.7 pg/mL (<58.9)
[2023-01-28 15:41] LABS: Bilirubin Direct < 0.1 mg/dL (0-0.2); Bilirubin Indirect, Calculated ND mg/dL (0.2-0.8)
--- NOTE | 2023-01-28 15:50 | ER ---
Nurse's Notes [facility] Name: Bisi Santo Age: 52 yrs Sex: Female : 1970 Arrival Date: 01/28/2023 Time: 13:53 Bed 8 Private MD: Diagnosis: Hypertensive emergency;CATHERINE Presentation: 01/28 13:58 Chief complaint: Patient states: Severe ALEMAN for 2 weeks. Slight cough, no fever. ll1 Coronavirus screen: Vaccine status: Patient reports receiving the 2nd dose of the covid vaccine. Client denies travel out of the [place] in the last 14 days. cough unrelated to allergies, fatigue, headache, nausea, vomiting. Client presents with at least one sign or symptom that may indicate coronavirus-19. Standard/surgical mask placed on the client. Ebola Screen: Patient denies travel to an Ebola-affected area in the 21 days before illness onset. Initial Sepsis Screen: Does the patient meet any 2 criteria? No. Patient's initial sepsis screen is negative. Does the patient have a suspected source of infection? No. Patient's initial sepsis screen is negative. Risk Assessment: Do you want to hurt yourself or someone else? Patient reports no desire to harm self or others. Onset of symptoms was January 14, 2023. 13:58 Method Of Arrival: Ambulatory ll1 13:58 Acuity: SONIA 2 ll1 Triage Assessment: 14:05 Headache History: Denies prior headaches. General: Appears uncomfortable, ill, Behavior ld1 is calm, cooperative, appropriate for age. Pain: Complains of pain in head. Neuro: Reports headache weakness. GI: Reports nausea, vomiting. 17:32 Pain: Also complains of. ld1 Historical: - Allergies: 13:58 Codeine; ll1 13:58 Demerol; ll1 13:58 Morphine; ll1 13:58 Sulfa (Sulfonamide Antibiotics); ll1 - PMHx: 13:58 Diabetes - IDDM; Hypertension; ll1 - Immunization history:: Adult Immunizations up to date. - Social history:: Smoking status: Patient denies any tobacco usage or history of. Screenin:46 [facility] ED Fall Risk Assessment (Adult) History of falling in the last 3 months, ld1 including since admission No falls in past 3 months (0 pts). Abuse screen: Denies threats or abuse. Denies injuries from another. Nutritional screening: No deficits noted. Tuberculosis screening: No symptoms or risk factors identified. Assessment: 14:45 Reassessment: ERP at bedside putting in IV. ld1 14:45 General: Appears in no apparent distress. comfortable, Behavior is calm, cooperative, ld1 appropriate for age. Pain: Complains of pain in left temporal area and left side of forehead and left frontal area Pain does not radiate. Pain currently is 9 out of 10 on a pain scale. Quality of pain is described as throbbing. Neuro: Level of Consciousness is awake, alert, obeys commands, Oriented to person, place, time, situation. Neuro: Reports headache. Cardiovascular: Capillary refill < 3 seconds Patient's skin is warm and dry. Respiratory: Airway is patent Respiratory effort is even, unlabored. GI: Abdomen is round non-distended. : No signs and/or symptoms were reported regarding the genitourinary system. EENT: No signs and/or symptoms were reported regarding the EENT system. Derm: No signs and/or symptoms reported regarding the dermatologic system. Musculoskeletal: No signs and/or symptoms reported regarding the musculoskeletal system. Vital Signs: 13:58 BP 206 / 121; Pulse 89; Resp 17; Temp 97.6; Pulse Ox 98% ; Weight 70.31 kg; Height 5 ll1 ft. 2 in. ; Pain 8/10; 14:23 BP 217 / 120; Pulse 90; ld1 14:46 BP 209 / 106; Pulse 90; Resp 28; Pulse Ox 100% on R/A; ld1 16:03 BP 176 / 93; Pulse 97; Resp 23; Pulse Ox 100% on R/A; ld1 16:22 BP 157 / 89; Pulse 102; Resp 18; Pulse Ox 98% on R/A; mb9 16:24 BP 157 / 89; Pulse 100; Resp 18; Pulse Ox 98% on R/A; ld1 17:02 BP 186 / 99; Pulse 98; Resp 18; Pulse Ox 96% on R/A; ld1 17:30 BP 172 / 94; Pulse 96; Resp 18; Pulse Ox 100% on R/A; ld1 13:58 Body Mass Index 28.35 (70.31 kg, 157.48 cm) ll1 13:58 Pain Scale: Adult ll1 Davy Coma Score: 15:49 Eye Response: spontaneous(4). Motor Response: obeys commands(6). Verbal Response: snw oriented(5). Total: 15. ED Course: 13:58 Patient arrived in ED. ll1 13:58 Maria [facility]C [facility] snw 13:58 Dillon Jordan MD is Attending Physician. snw 13:58 Arm band placed on. ll1 14:01 Triage completed. ll1 14:28 Radiology exam delayed due to pt too unstable to come down at this time. ls3 14:41 SARS-COV-2 RT PCR Sent. kc6 14:46 Patient has correct armband on for positive identification. Placed in gown. Bed in low ld1 position. Call light in reach. Side rails up X2. conveyor monitor on. Pulse ox on. NIBP on. Door closed. Noise minimized. Warm blanket given. 14:46 No provider procedures requiring assistance completed. Inserted saline lock: 22 gauge ld1 in right forearm, using aseptic technique. Blood collected. 14:53 CBC with Diff Sent. kc6 14:53 Missed attempt(s): 22 gauge in left hand. kc6 15:03 Lactate w/ 2H reflex if indic. Sent. mb9 15:03 Blood Culture Adult (2) Sent. mb9 15:03 SARS-COV-2 RT PCR Sent. mb9 15:11 Kandace Adam, ISAIAH is Primary Nurse. ld1 15:16 CT Head Brain wo Cont In Process Unspecified. EDMS 15:25 XRAY Chest (1 view) In Process Unspecified. EDMS 15:48 Lionel Man MD is Hospitalizing Provider. snw 17:33 Patient transferred, IV remains in place. ld1 Administered Medications: 15:03 Drug: niCARdipine IV 5 mg/hr Route: IV; Rate: calculated rate; Site: right hand; kc6 16:23 Follow up: Response: Blood pressure is lowered; IV Status: Infusion paused for 10 ld1 minutes per ERP verbal order. 17:02 Follow up: IV Status: Infusion continued ld1 Medication: 14:46 VIS not applicable for this client. ld1 Outcome: 15:49 Decision to Hospitalize by Provider. snw 16:26 ER care complete, transfer ordered by . snw 17:32 Transferred by ground EMS to [facility]. ld1 17:32 Condition: stable 17:32 Instructed on the need for transfer. 17:37 Patient left the ED. ld1 Signatures: Dispatcher [employer] EDMaria Elena Maldonado FNP-C HOTEL FRONT DESK AGENT-Del Jordan ls3 Adenike Willett, RN RN ll1 Kandace Adam RN RN ld1 Rosamaria Henry RN RN kc6 Saniya Nash RN RN mb9 Corrections: (The following items were deleted from the chart) 14:01 13:58 Acuity: SONIA 3 ll1 ll1
--- NOTE | 2023-01-28 15:50 | EDPHYS ---
Physician Documentation [facility] Name: Bisi Santo Age: 52 yrs Sex: Female : 1970 Arrival Date: 01/28/2023 Time: 13:53 Bed 8 Private MD: ED Physician Dillon Jordan HPI: 01/28 14:29 This 52 yrs old Black Female presents to ER via Ambulatory with complaints of Headache. snw 14:29 The patient complains of pain to the left frontal area, left side of forehead and left snw temporal area. The patient describes the headache as constant, unrelenting. Onset: The symptoms/episode began/occurred 1 week(s) ago, and became persistent. Severity of symptoms: At its worst the pain was moderate, severe. a few times. It is unknown whether or not the patient has recently seen a physician. pt vomiting on assessment. Historical: - Allergies: 13:58 Codeine; ll1 13:58 Demerol; ll1 13:58 Morphine; ll1 13:58 Sulfa (Sulfonamide Antibiotics); ll1 - PMHx: 13:58 Diabetes - IDDM; Hypertension; ll1 - Immunization history:: Adult Immunizations up to date. - Social history:: Smoking status: Patient denies any tobacco usage or history of. ROS: 14:13 Eyes: Negative for injury, pain, redness, and discharge, ENT: Negative for injury, snw pain, and discharge, Neck: Negative for injury, pain, and swelling, Cardiovascular: Negative for chest pain, palpitations, and edema, Respiratory: Negative for shortness of breath, cough, wheezing, and pleuritic chest pain. 14:13 Back: Negative for injury and pain, : Negative for injury, bleeding, discharge, and swelling, MS/Extremity: Negative for injury and deformity, Skin: Negative for injury, rash, and discoloration, Psych: Negative for depression, anxiety, suicide ideation, homicidal ideation, and hallucinations. 14:13 Constitutional: Positive for body aches, malaise. 14:13 Abdomen/GI: Positive for vomiting. 14:13 Neuro: Positive for headache. Exam: 14:11 Head/Face: Normocephalic, atraumatic. snw 14:11 Skin: Warm, dry with normal turgor. Normal color with no rashes, no lesions, and no evidence of cellulitis. MS/ Extremity: Pulses equal, no cyanosis. Neurovascular intact. Full, normal range of motion. Neuro: Awake and alert, GCS 15, oriented to person, place, time, and situation. Cranial nerves II-XII grossly intact. Motor strength 5/5 in all extremities. Sensory grossly intact. Cerebellar exam normal. Normal gait. Psych: Awake, alert, with orientation to person, place and time. Behavior, mood, and affect are within normal limits. 14:11 ENT: Nares patent. No nasal discharge, no septal abnormalities noted. Tympanic membranes are normal and external auditory canals are clear. Oropharynx with no redness, swelling, or masses, exudates, or evidence of obstruction, uvula midline. Mucous membranes moist. Neck: Trachea midline, no thyromegaly or masses palpated, and no cervical lymphadenopathy. Supple, full range of motion without nuchal rigidity, or vertebral point tenderness. No Meningismus. Chest/axilla: Normal chest wall appearance and motion. Nontender with no deformity. No lesions are appreciated. Cardiovascular: Regular rate and rhythm with a S3 No gallops, murmurs, or rubs. Normal PMI, no JVD. No pulse deficits. Respiratory: Lungs have equal breath sounds bilaterally, clear to auscultation and percussion. No rales, rhonchi or wheezes noted. No increased work of breathing, no retractions or nasal flaring. 14:11 Constitutional: The patient appears awake, listless, uncomfortable. 14:11 Eyes: Periorbital structures: swelling, that is mild, bilaterally. 14:11 Abdomen/GI: emesis/gastric contents smell of ketones. Vital Signs: 13:58 BP 206 / 121; Pulse 89; Resp 17; Temp 97.6; Pulse Ox 98% ; Weight 70.31 kg; Height 5 ll1 ft. 2 in. ; Pain 8/10; 14:23 BP 217 / 120; Pulse 90; ld1 14:46 BP 209 / 106; Pulse 90; Resp 28; Pulse Ox 100% on R/A; ld1 16:03 BP 176 / 93; Pulse 97; Resp 23; Pulse Ox 100% on R/A; ld1 16:22 BP 157 / 89; Pulse 102; Resp 18; Pulse Ox 98% on R/A; mb9 16:24 BP 157 / 89; Pulse 100; Resp 18; Pulse Ox 98% on R/A; ld1 17:02 BP 186 / 99; Pulse 98; Resp 18; Pulse Ox 96% on R/A; ld1 17:30 BP 172 / 94; Pulse 96; Resp 18; Pulse Ox 100% on R/A; ld1 13:58 Body Mass Index 28.35 (70.31 kg, 157.48 cm) ll1 13:58 Pain Scale: Adult ll1 Davy Coma Score: 15:49 Eye Response: spontaneous(4). Motor Response: obeys commands(6). Verbal Response: snw oriented(5). Total: 15. MDM: 14:02 Patient medically screened. snw 15:49 Differential diagnosis: cluster headache, cerebral vascular accident, hypertensive snw headache, intracerebral hemorrhage, migraine, neoplasm, subarachnoid bleed. Data reviewed: vital signs, nurses notes, lab test result(s), EKG, radiologic studies. Management of patient was discussed with the following: Hospitalist: TYLER Horne. I considered the following discharge prescriptions or medication management in the emergency department Medications were administered in the Emergency Department. See JUL. 15:59 Management of patient was discussed with the following: no ICU beds available, will [facility] attempt to transfer to [facility]. Counseling: I had a detailed discussion with the patient and/or guardian regarding the historical points, exam findings, and any diagnostic results supporting the discharge/admit diagnosis, lab results, radiology results, the need to transfer to another facility, ICU at capacity. 16:23 Management of patient was discussed with the following: Labeling Associate at [facility] loreto Carvalho kindly accepts pt in transfer and recommends titrating SBP no lower than 180. Cardene will be held for 10min and then started again at 2.5mg/hr. 01/28 14:04 Order name: Basic Metabolic Panel; Complete Time: 15:42 [facility] 01/28 14:04 Order name: CBC with Diff; Complete Time: 15:27 snw 01/28 14:04 Order name: LFT's; Complete Time: 15:42 w 01/28 14:04 Order name: Magnesium; Complete Time: 15:42 w 01/28 14:04 Order name: NT PRO-BNP; Complete Time: 15:42 w 01/28 14:04 Order name: PT-INR; Complete Time: 15:22 snw 01/28 14:04 Order name: Troponin HS; Complete Time: 15:42 snw 01/28 14:11 Order name: SARS-COV-2 RT PCR; Complete Time: 15:15 snw 01/28 14:11 Order name: Blood Culture Adult (2) snw 01/28 14:11 Order name: Lactate w/ 2H reflex if indic.; Complete Time: 15:39 snw 01/28 14:59 Order name: Glucose, Ancillary Testing; Complete Time: 15:04 EDMS 01/28 14:04 Order name: CT Head Brain wo Cont; Complete Time: 15:32 snw 01/28 14:04 Order name: XRAY Chest (1 view); Complete Time: 15:39 snw 01/28 14:04 Order name: EKG; Complete Time: 14:35 snw 01/28 14:04 Order name: Cardiac monitoring; Complete Time: 14:41 snw 01/28 14:04 Order name: EKG - Nurse/Tech; Complete Time: 14:23 snw 01/28 14:04 Order name: IV Saline Lock; Complete Time: 15:03 snw 01/28 14:04 Order name: Labs collected and sent; Complete Time: 15:03 snw 01/28 14:04 Order name: O2 Per Protocol; Complete Time: 14:22 snw 01/28 14:04 Order name: O2 Sat Monitoring; Complete Time: 14:22 snw 01/28 14:11 Order name: FSBS; Complete Time: 14:53 snw 01/28 16:25 Order name: Misc. Order: Pause cardene drip x 10min and then 2.5mg/hr to keep SBP 180s; snw Complete Time: 16:27 EC:32 Rate is 89 beats/min. Rhythm is regular. QRS [place] is Normal. [place] interval is normal. QRS snw interval is normal. T waves are Inverted in leads III, aVF. Clinical impression: NSR w/ Non-specific ST/T Changes. Administered Medications: 15:03 Drug: niCARdipine IV 5 mg/hr Route: IV; Rate: calculated rate; Site: right hand; [facility] 16:23 Follow up: Response: Blood pressure is lowered; IV Status: Infusion paused for 10 ld1 minutes per ERP verbal order. 17:02 Follow up: IV Status: Infusion continued ld1 Disposition: 01/29 13:50 Co-signature as Attending Physician, Dillon Jordan MD I reviewed the patient's care rn provided by the Advanced Practice Provider and agree with the diagnosis and treatment plan. Disposition Summary: 01/28/23 16:26 Transfer Ordered Transfer Location: [facility] snw Reason: Capacity snw Condition: Stable(01/28/23 16:26) snw Problem: an ongoing problem(01/28/23 16:26) snw Symptoms: have improved(01/28/23 16:26) snw Accepting Physician: Dr. Carvalho(01/28/23 17:37) ld1 Diagnosis - Hypertensive emergency snw - CATHERINE snw Forms: - Medication Reconciliation Form snw - SBAR form snw Signatures: Dispatcher [employer] EDWY Maria Elena Mancera, SHERIDAN-C COSTING MANAGER-Csnw Dillon Jordan MD MD rn Lewis, Lynsay RN RN ll1 Kandace Adam RN RN ld1 Rosamaria Henry RN RN kc6 Corrections: (The following items were deleted from the chart) 01/28 14:37 14:21 Head Brain Wo Cont ordered. EDWY EDMS 15:58 15:49 Inpatient Admission snw snw 15:58 15:49 Irina Mand snw snw 15:58 15:49 Intensive Care Unit snw snw 15:58 15:49 Stable snw snw 15:58 15:49 new snw snw 15:58 15:49 are unchanged snw snw 15:58 15:49 Standard snw snw 15:58 15:49 snw snw 15:58 15:49 Hypertensive urgency snw snw 15:58 15:49 CATHERINE snw snw 16:35 14:11 ENT: Nares patent. No nasal discharge, no septal abnormalities noted. Tympanic snw membranes are normal and external auditory canals are clear. Oropharynx with no redness, swelling, or masses, exudates, or evidence of obstruction, uvula midline. Mucous membranes moist. Neck: Trachea midline, no thyromegaly or masses palpated, and no cervical lymphadenopathy. Supple, full range of motion without nuchal rigidity, or vertebral point tenderness. No Meningismus. Chest/axilla: Normal chest wall appearance and motion. Nontender with no deformity. No lesions are appreciated. Cardiovascular: Regular rate and rhythm with a normal S1 and S2. No gallops, murmurs, or rubs. Normal PMI, no JVD. No pulse deficits. Respiratory: Lungs have equal breath sounds bilaterally, clear to auscultation and percussion. No rales, rhonchi or wheezes noted. No increased work of breathing, no retractions or nasal flaring. snw 17:37 16:26 Dr. Maia dangelo ld1
[2023-01-28 17:43] VITALS: TEMP 97.6
[2023-01-28 17:51] VITALS: BP 172/94; O2SAT 100
--- NOTE | 2023-01-29 16:46 | EKG ---
Test Date: 2023-01-28 Test Time: 14:24:06 [employer] Kitchen: CRISTELA MEASUREMENT RESULTS: Intervals: Rate: 89 NC: 142 QRSD: 98 QT: 390 QTc: 474 [place]: P: 67 NC: 142 QRS: -7 T: -13 INTERPRETIVE STATEMENTS: Normal sinus rhythm Normal ECG Compared to ECG 05/30/2022 13:05:45 Short NC interval no longer present Electronically Signed On 01-29-23 16:42:51 CDT by Isaiah Hogan
== END 2023-01-28 17:37 | disposition short-term general hospital (02) ==
LOC: ER 13:53
DX: I16.1 Hypertensive emergency (principal); N17.9 Acute kidney failure, unspecified; I10 Essential (primary) hypertension; E11.9 Type 2 diabetes mellitus without complications; Z20.822 Contact with and (suspected) exposure to COVID-19; Z88.2 Allergy status to sulfonamides; Z88.5 Allergy status to narcotic agent
CPT/HCPCS: 36415; 70450; 71045; 80048; 80076; 82947; 83605; 83735; 83880; 84484; 85025; 85610; 87040; 87635; 93005; 96365; 99285

== ENCOUNTER 2023-02-20 11:37 | Inpatient (IN) | payer OTHER ==
--- OUTSIDE RECORDS SUMMARY | 2023-02-20 11:40 | XMS REPORT | Clinical Summary ---
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
--- OUTSIDE RECORDS SUMMARY | 2023-02-20 11:45 | XMS REPORT | Continuity of Care Document ---
:1970 Author Organization [facility] Address [address] [place] [address] Care Team Providers Name Role Phone [facility], [facility] Primary Care Physician [phone] SONNY MUNGUIA Attending Clinician Unavailable JOSE ALFREDO SELLERS Attending Clinician UnavailJARRELL Strong Attending Clinician Unavailable Annelise Carvalho MD Attending Clinician Nathalie MAGALLANES, Rafiq Daniel Attending Clinician [phone] Sonny Munguia MD Attending Clinician JOHN FRANKS Attending Clinician Unavailable Ara Chang MD Attending Clinician Clinton Carpenter MD Attending Clinician [phone] James Oliveira MD, Diamond Wilde Attending Clinician [phone] John Franks MD Attending Clinician ANNELISE CARVALHO Admitting Clinician Unavailable CLINTON CARPENTER Admitting Clinician Unavailable Payers Payer Name Policy Type Policy Number Effective Date Expiration Date Michael govea [employer] MEDICARE HMO [id number] 2022 POS 00:00:00 SOFY CVS 9 [id number] 2023 BRONZE: HMO ON 00:00:00 STANDARD Problems Condition Condition Condition Status Onset Resolution Last Treating Co mments Source Name Details Category Date Date Treatment Clinician Date Diabetes Diabetes Disease [facility] CKD CKD Disease Recur[facility] (chronic (chronic nce 01-28 [facility] kidney kidney 00:00: Medical disease) disease) 00 Center stage 3, stage 3, GFR 30-59 GFR 30-59 ml/min ml/min Diastolic Diastolic Disease Rec[facility]re [facility] congestive congestive nce 01-28 [facility] heart heart 00:00: Medical failure, failure, 00 Center NYHA class NYHA class 1, 1, unspecifie unspecifie d d congestive congestive heart heart failure failure chronicity chronicity Hypertensi Hypertensi Disease Active [facility] ve 01-28 [facility] emergency emergency 00:00: Medi gena 00 Center Hypertensi Hypertensi Disease Active [facility] on on 01-28 [facility] Hypertensi Hypertensi Disease Active [facility] ve urgency ve urgency 02-16 [facility] 00:00: Medical 00 Center Allergies, Adverse Reactions, Alerts Allergy Allergy Status Severity Reaction(s) Onset Inactive Treating Comm ents Source Name Type Date Date Clinician SULFA Allergy Active High Hives [facility] (SULFONA 01-28 [facility] MIDE 00:[facility]: Medical ANTIBIOT 00 Center ICS) CODEINE Allergy Active N\\T\\V [facility] 01[facility] MEPERIDI Allergy Active [facility] 01[facility]28 [facility] MORPHINE Allergy Active Other [facility] 04 [facility] AMLODIPI Allergy Active Low Other [facility] 01[facility]28 [facility] Amlodipi Drug Active Other (See Cough [facility] Intol[facility] Comments) 04 [facility] nce 00:[facility] Medical 00 Center Codeine Drug Active Nausea And [facility] Vomiting 01-28 [facility] nce 00:[facility] Medical 00 Center Meperidi Drug Active [facility] 01-28 [facility] nce 00:[facility]: Medical 00 Center Morphine Drug Active Other (See [facility] Int[facility] Comments) 01-28 [facility] nce 00:[facility]: Medical 00 Center Sulfa Drug Active Hives, [facility] (Sulfona Allergy Shortness Of 04 L ukes mide Breath, 00:00: Medical Antibiot Itching, 00 Center ics) Swelling Sulfa Propensi Active 2021-05 Antibiot ty to 06-02 ics - adverse 00:00: CLASS reaction 00 to drug Sulfur Propensi Active Dioxide ty to 802 adverse 00:00: reaction 00 to drug NO KNOWN Allergy Active [facility] Family History Family Member Diagnosis Comments Start Date Stop Date Source Natural mother Diabetes type II [facility] Natural mother Heart failure [facility] Social History Social Habit Start Date Stop Date Quantity Comments Source History SDOH [facility]-Med [facility] History SDAK [facility] Housing Places Medical Ce nter Lived Alcohol intake 2023-02-01 2023-02-[address] [facility] 00:00:00 00:00:00 non-drinker Medical Cente r (finding) History [facility] 2023-01-29 2023-01-[address] [facility] Transport Med 00:00:00 00:00:[address] History [facility] 2023-01-29 2023-01-[address] [facility] Housing Unable to 00:00:00 00:00:00 Medical Center Pay History [facility] 2023-01-29 2023-01-[address] [facility] Housing Homeless 00:00:00 00:00:00 Medical Center Last Year Exposure to 2023-01-18 2023-01-[address] [facility] SARS-CoV-2 00:00:00 20:09:00 Medical Center (event) Tobacco use and 2023-01-28 2023-01-28 Sm[address] [facility] exposure 00:00:00 00:00:00 non-user Medical Center Sex Ass[birth year] At [birth year] [facility] 00:[facility] 00[facility] Smoking Status Start Date Stop Date Source Never smoked tobacco [facility] Medications Ordered Filled Start Stop Current Ordering Indication Dosage Frequency Signature Comments Components Source Medication Medication Date Date Medication? Clinician (SIG) Name Name calcitrioL 2023- Yes .25ug QD Take [address] [facility] (ROCALTROL) 02-05 capsule Luke s 0.25 MCG 00:00: 23:59 (0.25 mcg Med ical capsule 00 :00 total) by Center mouth daily. calcium 2023- Yes 1{tbl} QD Take 1 [facility] carbonate-v 02-05 tablet by Sabi keith itamin D3 00:00: 23:59 mouth Medica l (OSCAL-D) 00 :00 daily. Center 500 mg(1,250mg) -200 unit per tablet NIFEdipine 2023- Yes 90mg QD Take [address] [facility] (PROCARDIA- 02-05 tablet (90 L ukes XL) 90 MG 00:00: 23:59 mg total) Me dical (OSM) 24 hr 00 :00 by mouth Cent er tablet daily. carvediloL 2023- Yes 25mg Q.5D Take [address] [facility] [address] (COREG) 25 02-04 tablet (25 Sabi kes MG tablet 00:00: 23:59 mg total) Me dical 00 :00 by mouth 2 Center (two) times daily. hydrALAZINE 2023- Yes 50mg Take [address] [facility] (APRESOLINE 02-04 tablet (50 L ukes ) 50 MG 00:00: 23:59 mg total) Medi gena tablet 00 :00 by mouth Center every 8 (eight) hours . sevelamer 2023- Yes 800mg Take [address] [facility] (RENVELA) 02-04 tablet [facility] 800 mg 00:00: 23:59 (800 mg Medical tablet 00 :00 total) by Center mouth 3 (three) times daily with meals. ondansetron 2022- No 4mg Take [address] [facility] (ZOFRAN-ODT 02-04 tablet (4 Sabi kes ) 4 MG 00:00: 23:59 mg total) Medic al disintegrat 00 :00 by mouth Cent er ing tablet every 8 (eight) hours as needed for up to 7 days. Dose 2021-05 No Unknown 06-02 00:00: 00 INJECT 10 2021-05 No UNITS IN 1-07 THE AM AND 00:00: 10 UNITS IN 00 THE EVENING insulin 2022- No 10U Inject [address] [facility] 70/30, 9 09-29 Units [facility] insulin 00:00: 23:59 subcutaneo Med ical NPH-insulin 00 :[address] regular, (two) (HumuLIN times 70/30) 100 daily unit/mL before (70-30) meals. injection insulin 2022- No 10U Inject [address] 70/30, 02-22 09-29 Units [facility] insulin 00:00: 23:59 subcutaneo Med ical NPH-insulin 00 :[address] regular, (two) (HumuLIN times 70/30) 100 daily unit/mL before (70-30) meals. injection insulin 2022- No 10U Inject [address] 70/30, 9- 09-29 Units [facility] insulin 00:00: 23:59 subcutaneo Med ical NPH-insulin 00 :[address] regular, (two) (HumuLIN times 70/30) 100 daily unit/mL before (70-30) meals. injection insulin 2022- No 10U Inject [address] 70/30, 9 09-29 Units [facility] insulin 00:00: 23:59 subcutaneo Med ical NPH-insulin 00 :[address] regular, (two) (HumuLIN times 70/30) 100 daily unit/mL before (70-30) meals. injection insulin 2022- No 10U Inject [address] 70/30, 9-29 09-29 Units [facility] insulin 00:00: 23:59 subcutaneo Med ical NPH-insulin 00 :[address] regular, (two) (HumuLIN times 70/30) 100 daily unit/mL before (70-30) meals. injection insulin 2022- No 10U Inject [address] 70/30, 9 09-11 Units [facility] insulin 00:00: 00:00 subcutaneo Med ical NPH-insulin 00 :00 [facility] 2 Center regular, (two) (HumuLIN times 70/30) 100 daily unit/mL before (70-30) meals. injection amLODIPine 2021- No 10mg QD Take [address] [facility] [facility] (NORVASC) 02-22 12-28 tablet (10 Celia es [...] QD Take [address] [facility] [facility] (NORVASC) 02-22 12-28 tablet (10 Celia es 10 MG 00:00: 23:59 mg total) Medica l tablet 00 :00 by mouth Center daily for 90 days. carvediloL 2021-2021- No 25mg Q.5D Take [address] [facility] (COREG) 25 02-22 12-28 tablet (25 Sabi kes MG tablet 00:00: 23:59 mg total) Me dical 00 :00 by mouth 2 Center (two) times daily for 90 days. amLODIPine 2021-2021- No 10mg QD Take [address] [facility] (NORVASC) 02-22 12-28 tablet (10 Celia es 10 MG 00:00: 23:59 mg total) Medica l tablet 00 :00 by mouth Center daily for 90 days. carvediloL 2021- No 25mg Q.5D Take [address] (COREG) 25 02-2228 tablet (25 Sabi kes MG tablet 00:00: [...] subcutaneo M edical 100 unit/mL 00 :00 [facility] 3 Center injection (three) times daily [...] 100 unit/mL nightly. injection Dose No Unknown 8-30 00:00: 00 Lexapro 10 0 No 1mg mg tablet 8-18 00:00: 00 Dose 2020-0 No Unknown 8-05 00:00: 00 losartan 50 2020-0 No 1mg mg-hydrochl 8-02 orothiazide 00:00: 12.5 mg 00 tablet metformin No 1mg 1,000 mg 8-02 tablet 00:00: 00 Vital Signs Vital Name Observation Time Observation Value Comments Source WEIGHT 2023-02-04 05:30:00 76.2 kg WEIGHT 2023-02-03 05:53:00 71 kg WEIGHT 2023-02-02 05:51:00 70 kg HEIGHT 2023-02-01 09:50:00 157.5 cm WEIGHT 2023-02-01 09:50:00 68.04 kg WEIGHT 2023-02-01 06:00:00 68.357 kg WEIGHT 2023-01-30 05:38:00 68 kg HEIGHT 2023-01-28 21:00:00 157.5 cm WEIGHT 2023-01-28 21:00:00 66.2 kg WEIGHT 2023-02-04 05:30:00 76.2 kg WEIGHT 2023-02-03 05:53:00 71 kg WEIGHT 2023-02-02 05:51:00 70 kg HEIGHT 2023-02-01 09:50:00 157.5 cm WEIGHT 2023-02-01 09:50:00 68.04 kg WEIGHT 2023-02-01 06:00:00 68.357 kg WEIGHT 2023-01-30 05:38:00 68 kg HEIGHT 2023-01-28 21:00:00 157.5 cm WEIGHT 2023-01-28 21:00:00 66.2 kg WEIGHT 2022-02-17 05:00:00 72.3 kg WEIGHT 2022-02-16 09:30:00 70.3 kg WEIGHT 2022-02-17 05:00:00 72.3 kg WEIGHT 2022-02-16 09:30:00 70.3 kg Systolic blood 2023-02-04 12:00:00 167 mm[Hg] [facility] Diastolic blood 2023-02-04 12:00:00 84 mm[Hg] [facility] Heart rate 2023-02-04 12:00:00 92 /min [facility] Body temperature 2023-02-04 12:00:00 36.44 Cori [facility] Respiratory rate 2023-02-04 12:00:00 18 /min [facility] Oxygen saturation in 2023-02-04 12:00:00 97 /min [facility] Arterial blood by Medical Ce nter Pulse oximetry Body weight 2023-02-04 05:30:00 76.2 kg [facility] BMI 2023-02-04 05:30:00 30.73 kg/m2 [facility] Body height 2023-02-01 09:50:00 157.5 cm [facility] BP Systolic 2022-04-02 10:03:00 152 mm[Hg] BP Diastolic 2022-04-02 10:03:00 87 mm[Hg] Weight Measured 2022-04-02 10:03:00 196.00 pounds Height Measured 2022-04-02 10:03:00 62.50 inches Body Temperature 2022-04-02 10:03:00 98.30 degrees Heart Rate 2022-04-02 10:03:00 82.00 /min Respiratory Rate 2022-04-02 10:03:00 Systolic blood 2022-02-22 10:35:00 116 mm[Hg] [facility] Diastolic blood 2022-02-22 10:35:00 68 mm[Hg] [facility] Heart rate 2022-02-22 10:35:00 84 /min [facility] Body temperature 2022-02-22 10:35:00 36.5 Cori [facility] Respiratory rate 2022-02-22 10:35:00 16 /min [facility] Oxygen saturation in 2022-02-22 10:35:00 98 /min [facility] Arterial blood by Medical Ce nter Pulse oximetry Body height 2022-02-17 16:15:00 162.6 cm [facility] Body weight 2022-02-17 16:15:00 72.3 kg [facility] BMI 2022-02-17 16:15:00 27.36 kg/m2 [facility] BP Systolic 2021-01-11 09:40:00 150 mm[Hg] BP Diastolic 2021-01-11 09:40:00 98 mm[Hg] Weight Measured 2021-01-11 09:40:00 156.20 pounds Height Measured 2021-01-11 09:40:00 62.50 inches Body Temperature 2021-01-11 09:40:00 98.80 degrees Heart Rate 2021-01-11 09:40:00 100.00 /min Respiratory Rate 2021-01-11 09:40:00 17.00 /min BP Systolic 2021-01-11 09:08:00 BP Diastolic 2021-01-11 [...] 17.00 /min Procedures Procedure Date / Time Performing Clinician Source Performed POCT-GLUCOSE METER 2023-02-04 [facility] 2023-02-04 06:37:00 [facility] BASIC METABOLIC PANEL 2023-02-04 05:36:00 [facility] MAGNESIUM 2023-02-04 05:36:[address] [facility] PHOSPHORUS 2023-02-04 05:36:[address] [facility] POCT-GLUCOSE METER 2023-02-03 21:52:00 Nilda [facility] POCT-GLUCOSE METER 2023-02-03 16:26:[facility] PO[facility]SE METER 2023-02-03 12:03:00 Nilda [facility] POCT-GLUCOSE METER 2023-02-03 07:26:00 [facility] BASIC METABOLIC PANEL 2023-02-03 05:53[facility]-03 05:53[facility] 2023-02-03 05:53:00 [facility] CBC (HEMOGRAM ONLY) 2023-02-03 05:53:00 [facility] POCT-GLUCOSE METER 2023-02-02 21:09:00 [facility] POCT-GLUCOSE METER 2023-02-02 16:21:00 [facility] POCT-GLUCOSE METER 2023-02-02 11:55:00 [facility] BASIC METABOLIC PANEL 2023-02-02 05:51:00 [facility] MAGNESIUM 2023-02-02 05:51:00 [facility] PHOSPHORUS 2023-02-02 05:51:00 [facility] CBC (HEMOGRAM ONLY) 2023-02-02 05:51:00 [facility] POCT-GLUCOSE METER 2023-02-01 21:20:00 [facility] POCT-GLUCOSE METER 2023-02-01 15:52:00 [facility] POCT-GLUCOSE METER 2023-02-01 12:12:00 Munguia, SonnyEstelle [facility] US RENAL BIOPSY 2023-02-01 10:56:[address] [facility] TISSUE EXAM 2023-02-01 10:46:[address] [facility] BASIC METABOLIC PANEL 2023-02-01 05:59:[address] [facility] MAGNESIUM 2023-02-01 05:59:[address] [facility] PHOSPHORUS 2023-02-01 05:59:[address] [facility] CBC (HEMOGRAM ONLY) 2023-02-01 05:59:00 [facility] POCT-GLUCOSE METER 2023-01-31 21:02:00 [facility] POCT-[facility]UCOSE METER 2023-01-31 16:35:[facility] POCT-GLUCOSE METER 2023-01-31 11:48:00 Nilda [facility] URINE CULTURE 2023-01-31 07:45:[address] [facility] POCT-GLUCOSE METER 2023-01-31 05:42:00 Nilda [facility] CBC W/PLT COUNT & AUTO 2023-01-31 04:42:00 Taylor Gillette [facility] DIFFERENTIAL [facility] BASIC METABOLIC PANEL 2023-01-31 04:42:00 Arteaga, [facility] MAGNESIUM 2023-01-31 04:42:00 Arteaga, [facility] PHOSPHORUS 2023-01-31 04:42:00 Arteaga [facility] CBC W/PLT COUNT & AUTO 2023-01-31 04:42:00 Taylor Gillette [facility] DIFFERENTIAL [facility] POCT-GLUCOSE METER 2023-01-30 20:24:[facility] POCT-[facility]SE METER 2023-01-30 15:37:00 [facility] POCT-GLUCOSE METER 2023-01-30 10:51:00 Munguia, Sonny [facility] POCT-GLUCOSE METER 2023-01-30 06:14:00 Rafiq Zelaya [facility] URINALYSIS W/ MICROSCOPIC 2023-01-30 05:38:00 Clinton Munroe [facility] PROTEIN, RANDOM URINE 2023-01-30 05:38:00 Clinton Munroe [facility] CBC W/PLT COUNT & AUTO 2023-01-30 05:38:00 [facility] BASIC METABOLIC PANEL 2023-01-30 05:38:00 Arteaga [facility] MAGNESIUM 2023-01-30 05:38:00 Arteaga, [facility] PHOSPHORUS 2023-01-30 05:38:00 Arteaga [facility] CBC W/PLT COUNT & AUTO 2023-01-30 05:38:00 Taylor Gillette [facility] POCT-GLUCOSE METER 2023-01-29 20:40:00 Nathalie [facility] SODIUM, RANDOM URINE 2023-01-29 15:20[facility] CREATININE, RANDOM URINE 2023-01-29 15:20:00 Shaneka Nance [facility] POCT-GLUCOSE METER 2023-01-29 15:19:00 Rafiq Zelaya [facility] US RENAL COMPLETE 2023-01-29 14:18:27 [facility] POCT-GLUCOSE METER 2023-01-29 12:15:00 Nathalie [facility] PROTEIN ELECTROPHORESIS, 2023-01-29 12:13:00 Shaneka [facility] KAPPA / LAMBDA LIGHT 2023-01-29 12:13:00 Cj Munroemad [facility] HC LAB HIV-1 AG W/HIV-1&2 2023-01-29 12:13:[address] [facility] AB [facility] HEPATITIS PANEL, ACUTE 2023-01-29 12:13:[address] [facility] ALDOSTERONE/PLASMA RENIN 2023-01-29 12:13:00 Clinton Munroe [facility] ACTIVITY RATIO [facility] IMMUNOFIXATION 2023-01-29 12:13:00 Clinton Munroe [facility] ELECTROPHORESIS (ROLLY) [facility] nter 2D ECHO W/ DOPPLER 2023-01-29 09:35:00 Taylor Gillette [facility] ukes (CW/PW/COLOR) [facility] CBC W/PLT COUNT & AUTO 2023-01-29 01:49:00 Taylor Gillette [facility] DIFFERENTIAL [facility] COMPREHENSIVE METABOLIC 2023-01-29 01:49:00 Taylor Gillette [facility] PANEL [facility] LIPID PANEL 2023-01-29 01:49:00 Taylor Gillette [facility] MAGNESIUM 2023-01-29 01:49:00 Arteaga Chasity [facility] PHOSPHORUS 2023-01-29 01:49:00 Jenni Chasity [facility] CBC W/PLT COUNT & AUTO 2023-01-29 01:49:00 Tayolr Gillette [facility] DIFFERENTIAL [facility] POTASSIUM 2023-01-28 21:16:00 Taylor Gillette [facility] PTH, INTACT 2023-01-28 21:16:00 Taylor Gillette [facility] VITAMIN D, 25-HYDROXY 2023-01-28 21:16:[address] [facility] XR CHEST 1 VIEW PORTABLE / 2023-01-28 20:38:15 Taylor Gillette [facility] BEDSIDE [facility] DRUG SCREEN, URINE, 2023-01-28 19:35:00 Taylor Gillette [facility] SODIUM, RANDOM URINE 2023-01-28 19:35:00 Taylor Gillette [facility] CREATININE, RANDOM URINE 2023-01-28 19:35:00 Taylor Gillette [facility] UREA NITROGEN, RANDOM 2023-01-28 19:35:00 Taylor Gillette [facility] URINE [facility] COMPREHENSIVE METABOLIC 2023-01-28 19:29:00 Taylor Gillette [facility] PANEL [facility] CALCIUM, IONIZED 2023-01-28 19:29:00 Taylor Gillette [facility] MAGNESIUM 2023-01-28 19:29:00 Taylor Gillette [facility] PHOSPHORUS 2023-01-28 19:29:00 Taylor Gillette [facility] PROTHROMBIN TIME/INR 2023-01-28 19:29:00 Taylor Gillette [facility] HEMOGLOBIN A1C 2023-01-28 19:29:00 Taylor Gillette [facility] TROPONIN I 2023-01-28 19:29:00 Taylor Gillette [facility] LIPID PANEL 2023-01-28 19:29:00 Taylor Gillette [facility] IRON, TIBC, % SAT. 2023-01-28 19:29:00 Taylor Gillette [facility] Isaac ukes (WITHOUT FERRITIN) [facility] 2023-01-28 00:00:00 Provider, Fara [facility] POCT-GLUCOSE METER 2022-02-22 10:39:00 John Franks [facility] POCT-GLUCOSE METER 2022-02-22 07:49:00 John Franks [facility] BASIC METABOLIC PANEL 2022-02-22 04:19:00 Ivan Aguilar [facility] POCT-GLUCOSE METER 2022-02-21 23:22:00 John Franks [facility] POCT-GLUCOSE METER 2022-02-21 16:22:00 Joycelyn John [facility] POCT-GLUCOSE METER 2022-02-21 11:29:00 [facility] 2022-02-21 07:39:00 Joycelyn John [facility] BASIC METABOLIC PANEL 2022-02-21 03:46:00 Ivan Aguilar [facility] POCT-GLUCOSE METER 2022-02-21 00:17:00 John Franks [facility] MR CERVICAL SPINE WITH & 2022-02-20 18:30:00 Jozef Hamew [facility] WITHOUT IV CONTRAST Medical Cent er XR CHEST 1 VIEW PORTABLE / 2022-02-20 15:20:00 Angy Franks [facility] POCT-GLUCOSE METER 2022-02-20 12:50:00 Joycelyn John [facility] CBC W/PLT COUNT & AUTO 2022-02-20 06:08:00 [facility] COMPREHENSIVE METABOLIC 2022-02-20 06:08:00 Levi Hopkins [facility] PANEL [facility] MAGNESIUM 2022-02-20 06:08:00 Levi Hopkins [facility] PHOSPHORUS 2022-02-20 06:08:00 Levi Hopkins [facility] CBC W/PLT COUNT & AUTO 2022-02-20 06:08:00 [facility] DIFFERENTIAL [facility] POCT-GLUCOSE METER 2022 18:11:[address] [facility] POCT-GLUCOSE METER 2022 16:16:[address] [facility] POCT-GLUCOSE METER 2022 12:41:[address] [facility] VITAMIN D, 25-HYDROXY 2022 09:30:00 Chioma Bustillos [facility] POCT-GLUCOSE METER 2022 08:14:00 Jayden Nance [facility] CBC W/PLT COUNT & AUTO 2022 02:10:00 Kellie [facility] DIFFERENTIAL [facility] COMPREHENSIVE METABOLIC 2022 02:10:00 [facility] MAGNESIUM 2022 02:10:00 [facility] 2022 02:10:00 Kellie [facility] PTH, INTACT 2022 02:10:00 Najma Koo [facility] CBC W/PLT COUNT & AUTO 2022 02:10:[address] [facility] POCT-GLUCOSE METER 2022-02-18 22:01:00 Jayden [facility] POCT-GLUCOSE METER 2022-02-18 17:32:00 Jayden [facility] POCT-GLUCOSE METER 2022-02-18 13:00:00 [facility] 2D ECHO W/ DOPPLER 2022-02-18 10:36:26 Marina Logan [facility] (CW/PW/COLOR) [facility] 2D ECHO W/ DOPPLER 2022-02-18 10:36:26 Marina Logan [facility] (CW/PW/COLOR) [facility] POCT-GLUCOSE METER 2022-02-18 09:25:00 Jayden Nance [facility] US RENAL COMPLETE 2022-02-18 08:33:00 Aissatou Henry [facility] POCT-GLUCOSE METER 2022-02-18 05:33:00 Jayden Nance [facility] CBC W/PLT COUNT & AUTO 2022-02-18 04:09:[address] [facility] S [facility] DIFFERENTIAL [facility] COMPREHENSIVE METABOLIC 2022-02-18 04:09:[address] [facility] St kes PANEL [facility] MAGNESIUM 2022-02-18 04:09:00 Levi Hopkins [facility] PHOSPHORUS 2022-02-18 04:09:00 Levi Hopkins [facility] CBC W/PLT COUNT & AUTO 2022-02-18 04:09:[address] [facility] S t [facility] DIFFERENTIAL [facility] POCT-GLUCOSE METER 2022-02-17 22:53:00 Jayden Nance [facility] MR BRAIN WITHOUT IV 2022-02-17 18:29:00 KellieLevi [facility] CONTRAST [facility] POCT-GLUCOSE METER 2022-02-17 18:27:00 Jayden Nance [facility] TSH/FREE T4 IF INDICATED 2022-02-17 17:06:00 Carl Aissatou [facility] T4, FREE 2022-02-17 17:06:00 Kenzie Henryolette [facility] POCT-GLUCOSE METER 2022-02-17 16:29:00 Jayden Nance [facility] POCT-GLUCOSE METER 2022-02-17 15:14:00 Jayden Nance [facility] POCT-GLUCOSE METER 2022-02-17 14:10:00 Jayden, [facility] POCT-GLUCOSE METER 2022-02-17 13:18:00 Jayden [facility] ECG 12-LEAD 2022-02-17 12:16:45 [facility] [facility] ECG 12-LEAD 2022-02-17 12:16:45 Unknown, [facility] BASIC METABOLIC PANEL 2022-02-17 12:12:00 AguilarIvan [facility] POCT-GLUCOSE METER 2022-02-17 11:36:00 JaydenClinton pino [facility] POCT-GLUCOSE METER 2022-02-17 10:04:00 Jayden Nance [facility] POCT-GLUCOSE METER 2022-02-17 09:01:00 JaydenClinton [facility] BASIC METABOLIC PANEL 2022-02-17 08:53:00 Jeff Ivan [facility] POCT-GLUCOSE METER 2022-02-17 08:13:00 Jayden Nance [facility] BASIC METABOLIC PANEL 2022-02-17 05:41:00 [place] [facility] MAGNESIUM 2022-02-17 05:41:00 [place] [facility] PHOSPHORUS 2022-02-17 05:41:00 [place] [facility] POCT-GLUCOSE METER 2022-02-17 05:18:00 Jayden Nance [facility] HEMOGLOBIN A1C 2022-02-17 03:29:00 [facility] W/PLT [facility] & AUTO 2022-02-17 03:29:00 Levi Hopkins [facility]FFERENTIAL [facility] COMPREHENSIVE METABOLIC 2022-02-17 03:29:00 KellieLevi [facility] PANEL [facility] MAGNESIUM 2022-02-17 03:29:00 Levi Hopkins [facility] PHOSPHORUS 2022-02-17 03:29:00 [facility] W/PLT COUNT & AUTO 2022-02-17 03:29:00 Levi Hopkins [facility] POCT-GLUCOSE METER 2022-02-17 02:55:00 Jayden Nance [facility] BASIC METABOLIC PANEL 2022-02-17 01:40:00 Jeff Ivan [facility] POCT-GLUCOSE METER 2022-02-17 01:22:00 Jayden Nance [facility] POCT-GLUCOSE METER 2022-02-17 00:01:00 Jayden [facility] XR ABDOMEN/KUB 1 VIEW 2022-02-16 22:34:00 Ivan Aguilar [facility] PORTABLE [facility] POCT-GLUCOSE METER 2022-02-16 22:18:00 Jayden Nance [facility] BLOOD GAS, ARTERIAL 2022-02-16 21:43:00 Ivan Aguilar [facility] XR CHEST 1 VIEW PORTABLE / 2022-02-16 21:29:00 Ivan Aguialr [facility] POCT-GLUCOSE METER 2022-02-16 21:02:00 Jayden [facility] KETONE, BLOOD 2022-02-16 20:59:00 Jeff Ivan [facility] POCT-GLUCOSE METER 2022-02-16 20:22:00 Jayden [facility] BASIC METABOLIC PANEL 2022-02-16 20:16:00 Jeff Ivan [facility] POCT-GLUCOSE METER 2022-02-16 18:06:00 Jayden Nance [facility] POCT-GLUCOSE METER 2022-02-16 17:15:00 Jayden [facility] POCT-GLUCOSE METER 2022-02-16 16:01:00 Jayden Nance [facility] POCT-GLUCOSE METER 2022-02-16 15:03:00 Jayden [facility] BLOOD CULTURE 2022-02-16 14:48:00 Marina Logan [facility] URINALYSIS W/ REFLEX URINE 2022-02-16 14:29:[address] [facility] POCT-GLUCOSE METER 2022-02-16 14:16:00 Jayden Nance [facility] BLOOD CULTURE 2022-02-16 13:40:00 Desmond Marina [facility] POCT-GLUCOSE METER 2022-02-16 13:24:00 Ara Chang [facility] POCT-GLUCOSE METER 2022-02-16 12:09:00 Ara Chang [facility] EEG AWAKE AND DROWSY 2022-02-16 11:47:00 Jayden Nance [facility] CBC W/PLT COUNT & AUTO 2022-02-16 11:25:[address] [facility] DIFFERENTIAL [facility] BASIC METABOLIC PANEL 2022-02-16 11:25:00 Jayden Nance [facility] HIGH SENSITIVITY TROPONIN 2022-02-16 11:25:00 Cj Carpentermad [facility] HEPATIC FUNCTION PANEL 2022-02-16 11:25:00 John Carpenterhammad [facility] LACTIC ACID, VENOUS 2022-02-16 11:25:00 Jayden Nance [facility] CBC W/PLT COUNT & AUTO 2022-02-16 11:25:[address] [facility] DIFFERENTIAL [facility] SARS-COV2/RT-PCR ([facility] & 2022-02-16 11:03:00 Clinton Carpenter [facility] REF LABS) [facility] MRSA SCREEN 2022-02-16 11:03:00 Jayden, Nance [facility] XR CHEST 1 VIEW PORTABLE / 2022-02-16 10:40:00 Nikhil Carpenter [facility] BEDSIDE [facility] POCT-GLUCOSE METER 2022-02-16 09:16:00 Ara Chang T [facility] Plan of Care Planned Activity Planned Date Details Comments Source Future Scheduled 2026-01-29 Lipid panel (procedure) [facility] 00:00:00 [code = 20725963] Medical Ce nter Future Scheduled 2024-02-[address] [facility] 00:00:00 Counseling and Screening Med ical Center (12+) [code = Tobacco Cessation Counseling and Screening (12+)] Future Scheduled 2023-07-[address] 00[facility]:00 measurement (procedure) [facility] [code = 58461415] Future Scheduled 2023-01-25 Influenza Vaccine (#1) [facility]00 [code = Influenza Vaccine Me dical Center (#1)] Future Scheduled 2023-01-25 Influenza Vaccine (#1[facility] 00:00[facility]00 [code = Influenza Vaccine Me dical Center (#1)] Future Scheduled 2022-12-25 Medicare IPPE (WELCOME TO [facility] 00:00:00 MEDICARE) [code = Medical Ce nter Medicare IPPE (WELCOME TO MEDICARE)] Future Scheduled 2022-05-[address] [...] breast Medical C enter (procedure) [code = 303109222] Future Scheduled 2021-05-29 Screening for malignant [facility] 00:00:00 neoplasm of breast Medical C enter (procedure) [code = 584852392] Future Scheduled 2021-05-29 Screening for malignant [facility] 00:00:00 neoplasm of breast Medical C enter (procedure) [code = 761864240] Future Scheduled 2021-05-29 Screening for malignant [facility] 00:00:00 neoplasm of breast Medical C enter (procedure) [code = 160383838] Future Scheduled 2021-05-29 Screening for malignant [facility] 00:00:00 neoplasm of breast Medical C enter (procedure) [code = 070401153] Future Scheduled 2021-05-29 Screening for malignant [facility] 00:00:00 neoplasm of breast Medical C enter (procedure) [code = 317373757] Future Scheduled 2021-05-[address] [facility] Future Scheduled 2019 SHINGLES VACCINES ([address] [facility] 00:00[facility]00 [facility] Future Scheduled 2019 SHINGLES VACCINES ([address] [facility] 00:00:00 2) [code = [facility] VACCINES (1 of 2)] Future Scheduled 2014 Lipid panel (procedure) [facility] 00:00:00 [code = 47130989] Medical Ce nter Future Scheduled 2014 Lipid panel (procedure) [facility] 00:00:00 [code = 54564297] Medical Ce nter Future Scheduled 2014 Lipid panel (procedure) [facility] 00:00:00 [code = 07639340] Medical Ce nter Future Scheduled 2014 Lipid panel (procedure) [facility] 00:00:00 [code = 65479778] Medical Ce nter Future Scheduled 2014 Lipid panel (procedure) [facility] 00:00:00 [code = 24568081] Medical Ce nter Future Scheduled 1990 Screening for malignant [facility] 00:00:00 neoplasm of cervix Medical C enter (procedure) [code = 875060138] Future Scheduled 1990 Screening for malignant [facility] 00:00:00 neoplasm of cervix Medical C enter (procedure) [code = 267094879] Future Scheduled 1990 Screening for malignant [facility] 00:00:00 neoplasm of cervix Medical C enter (procedure) [code = 486210558] Future Scheduled 1990 Screening for malignant [facility] 00:00:00 neoplasm of cervix Medical C enter (procedure) [code = 336671286] Future Scheduled 1990 Screening for malignant [facility] 00:00:00 neoplasm of cervix Medical C enter (procedure) [code = 744431761] Future Scheduled 1990 Screening for malignant [facility] 00:00:00 neoplasm of cervix Medical C enter (procedure) [code = 498487975] Future Scheduled 1988-02-20 DTAP/TDAP/TD VACCINES (1 [facility] [...] screening Medical Cent er (procedure) [code = 663769978] Future Scheduled [address] [facility] 00:00:00 Counseling and Screening Med ical Center (12+) [code = Tobacco Cessation Counseling and Screening (12+)] Future Scheduled [address] [facility] 00:00:00 Counseling and Screening [facility] (12+) [code = Tobacco Cessation Counseling and Screening (12+)] Future Scheduled 1979 DIABETIC EYE EXAM [code = [facility] 00:00:00 DIABETIC EYE EXAM] Medical C enter Future Scheduled 1979 Diabetic foot examination [facility] 00:00:00 (regime/therapy) [code = Med ical Center 577501757] Future Scheduled 1979 Urine screening for [facility] 00:00:00 protein (procedure) [code [facility] = 844094916] Future Scheduled 1975 Pneumococcal Vaccine: [facility] 00:[facility]:00 0-64 Years (1 - PCV) Medical Center [code = Pneumococcal Vaccine: 0-64 Years (1 - PCV)] Future Scheduled 1969 COVID-19 VACCINE (#1) [facility] 00:00:00 [code = COVID-19 VACCINE [facility] ical Center (#1)] Future Scheduled 1969 COVID-19 VACCINE (#1) [facility] 00:00:00 [code = COVID-19 VACCINE [facility] ical Center (#1)] Future Scheduled 1969 COVID-19 VACCINE (#1) [facility] 00:00:00 [code = COVID-19 VACCINE [facility] ical Center (#1)] Future Scheduled 1969 COVID-19 VACCINE (#1) [facility] 00:00:00 [code = COVID-19 VACCINE [facility] ical Center (#1)] Future Scheduled 1969 COVID-19 VACCINE (#1) [facility] 00:00:00 [code = COVID-19 VACCINE [facility] ical Center (#1)] Future Scheduled 1969 COVID-19 VACCINE (#1) [facility] 00:00:00 [code = COVID-19 VACCINE [facility] ical Center (#1)] Future Scheduled 1969 CT Colonography (combo) [facility] 00:00:00 [code = CT Colonography Medi gena Center (combo)] Future Scheduled 1969 Screening for malignant [facility] 00:00:00 neoplasm of colon Medical Ce nter (procedure) [code = 638950860] Future Scheduled 1969 Screening for malignant [facility] 00:00:00 neoplasm of colon Medical Ce nter (procedure) [code = 893158149] Future Scheduled 1969 Screening for malignant [facility] 00:00:00 neoplasm of colon Medical Ce nter (procedure) [code = 458157442] Future Scheduled 1969 Screening for malignant [facility] 00:00:00 neoplasm of colon Medical Ce nter (procedure) [code = 257975777] Future Scheduled 1969 Sigmoidoscopy [code = [facility] Sigmoidoscopy] Medical Cente r Future Scheduled 1969 CT Colonography (combo) [facility] 00:00:00 [code = CT Colonography Medi gena Center (combo)] Future Scheduled 1969 Screening for malignant [facility] 00:00:00 neoplasm of colon Medical Ce nter (procedure) [code = 289620326] Future Scheduled 1969 Screening for malignant [facility] 00:00:00 neoplasm of colon Medical Ce nter (procedure) [code = 018415576] Future Scheduled 1969 Screening for malignant [facility] 00:00:00 neoplasm of colon Medical Ce nter (procedure) [code = 965078145] Future Scheduled 1969 Screening for malignant [facility] 00:00:00 neoplasm of colon Medical Ce nter (procedure) [code = 531481869] Future Scheduled 1969 Sigmoidoscopy [code = [facility] 00:00:00 Sigmoidoscopy] Medical Cente r Future Scheduled 1969 CT Colonography (combo) [facility] 00:00:00 [code = CT Colonography Medi gena Center (combo)] Future Scheduled 1969 Screening for malignant [facility] 00:00:00 neoplasm of colon Medical Ce nter (procedure) [code = 029065708] Future Scheduled 1969 Screening for malignant [facility] 00:00:00 neoplasm of colon Medical Ce nter (procedure) [code = 760255484] Future Scheduled 1969 Screening for malignant [facility] 00:00:00 neoplasm of colon Medical Ce nter (procedure) [code = 191688049] Future Scheduled 1969 Screening for malignant [facility] 00:00:00 neoplasm of colon Medical Ce nter (procedure) [code = 614704406] Future Scheduled 1969 Sigmoidoscopy [code = [facility] 00:00:00 Sigmoidoscopy] Medical Cente r Future Scheduled 1969 CT Colonography (combo) [facility] 00:00:00 [code = CT Colonography Medi gena Center (combo)] Future Scheduled 1969 Screening for malignant [facility] 00:00:00 neoplasm of colon Medical Ce nter (procedure) [code = 381377872] Future Scheduled 1969 Screening for malignant [facility] 00:00:00 neoplasm of colon Medical Ce nter (procedure) [code = 415473806] Future Scheduled 1969 Screening for malignant [facility] 00:00:00 neoplasm of colon Medical Ce nter (procedure) [code = 496245450] Future Scheduled 1969 Screening for malignant [facility] 00:00:00 neoplasm of colon Medical Ce nter (procedure) [code = 805496188] Future Scheduled 1969 Sigmoidoscopy [code = [facility] 00:00:00 Sigmoidoscopy] Medical Cente r Future Scheduled 1969 CT Colonography (combo) [facility] 00:00:00 [code = CT Colonography Medi gena Center (combo)] Future Scheduled 1969 Screening for malignant [facility] 00:00:00 neoplasm of colon Medical Ce nter (procedure) [code = 993733174] Future Scheduled 1969 Screening for malignant [facility] 00:00:00 neoplasm of colon Medical Ce nter (procedure) [code = 827866781] Future Scheduled 1969 Screening for malignant [facility] 00:00:00 neoplasm of colon Medical Ce nter (procedure) [code = 476715019] Future Scheduled 1969 Screening for malignant [facility] 00:00:00 neoplasm of colon Medical Ce nter (procedure) [code = 458561504] Future Scheduled 1969 Sigmoidoscopy [code = [facility] 00:00:00 Sigmoidoscopy] Medical Cente r Future Scheduled 1969 CT Colonography (combo) [facility] 00:00:00 [code = CT Colonography [facility] (combo)] Future Scheduled 1969 Screening for malignant [facility] 00:00:00 neoplasm of colon Medical Ce nter (procedure) [code = 490851498] Future Scheduled 1969 Screening for malignant [facility] 00:00:00 neoplasm of colon Medical Ce nter (procedure) [code = 813005604] Future Scheduled 1969 Screening for malignant [facility] 00:00:00 neoplasm of colon Medical Ce nter (procedure) [code = 932176614] Future Scheduled 1969 Screening for malignant [facility] 00:00:00 neoplasm of colon Medical Ce nter (procedure) [code = 255138205] Future Scheduled 1969 Sigmoidoscopy [code = [facility] 00:[facility] Sigmoidoscopy] Medical Cente r Goal Plan of Care Note [code = 53276-0] Goal Plan of Care Note [code = 27233-0] Goal Plan of Care Note [code = 18522-8] Goal Plan of Care Note [code = 05170-6] Goal Plan of Care Note [code = 14791-1] Goal Plan of Care Note [code = 70027-9] Goal Plan of Care Note [code = 44877-0] Goal Plan of Care Note [code = 98143-2] Goal Plan of Care Note [code = 15843-1] Goal Plan of Care Note [code = 52146-6] Goal Plan of Care Note [code = 72231-7] Goal Plan of Care Note [code = 13482-2] Goal Plan of Care Note [code = 91710-7] Encounters Start End Encounter Admission Attending Care Care Encounter Source Date/Time Date/Time Type Type Clinicians Facility Department ID 2023-02-01 Inpatient ER MUNGUIA, SLSL [facility] [id number] [facility] 09:51:23 SONNY 2023-01-31 Inpatient ER NILDA, [facility] [id number] [facility] 20:10:12 SONNY 2023-01-29 Inpatient ER TAYLOR SLSL SLSL [id number] SLSL 13:27:19 JOSE ALFREDO GILLETTE 2023-01-29 Inpatient ER TAYLOR SLSL SLSL [id number] SLSL 07:37:41 JOSE ALFREDO GILLETTE 2023-02-20 2023-02-20 Outpatient REYNA EMMANUEL [id number] Reyna 10:00:00 10:00:00 JARRELL Seybol viviana 2023-02-20 2023-02-20 Outpatient REYNA EMMANUEL [id number] Reyna 10:00:00 10:00:00 JARRELL Seybol d 2023-02-13 2023-02-13 Outpatient SFA SFA [id number] Rangel 08:25:07 08:25:07 [id number] F Jesse 2023-01-28 2023-02-04 [facility] MaiaAnnelise [facility] [id number] [facility] 18:37:00 15:02:[address] [facility] 2023-01-28 2023-02-04 Inpatient ER [facility]ILDA [facility] [id number] SLSL 18:37:00 15:02:00 SONNY 2023-01-28 2023-01-29 Inpatient ER TAYLOR SLSL SLSL [id number] SLSL 19:41:51 00:00:00 JOSE ALFREDO GILLETTE 2023-01-28 2023-01-28 Travel [facility] [id number] [facility] 00:00[facility]00 [facility] 2022-04-02 2022-04-02 Outpatient SFA SFA [id number] Rangel 10:00:27 10:00:27 [id number] F Jesse 2022-04-02 2022-04-02 Outpatient [id number] 00:00:00 00:00:00 Visit [id number] 2022-02-16 2022-02-22 Inpatient ER [facility] [id number] [facility] 08:59:00 13:33:00 , JOHN 2022-02-16 2022-02-[address] [facility] [id number] 08:59:00 13:33:00 [facility] 2022-02-17 2022-02-[address] [facility] [id number] 00:00[facility]00 00:00:00 [facility] 2022-02-16 2022-02-16 [facility] [id number] 00:[facility] 00:00[facility]00 [facility] Results Test Description Test Time Test Comments Results Result Comments Source Tissue Exam 2023-02-11 10:06:01 Test Item Value Reference Range Interpretation Comme nts Case Report (test code = 104) Surgical Pathology Report Case: [id number] Authorizing Provider: Sonny Munguia MD Collected: 02/01/2023 10:46 AM Ordering Location: [address] Med/Surg Received: 02/01/2023 10:47 AM Pathologist: Kiesha Radford MD Specimen: Kidney, Right DIAGNOSIS (test code = 3220) e1kgmMLuJGRlz8mnOOQruZKvWqRtDmSfHxEfCe sTAnMKxxfvTqGDaeeQejODKnNMknCG3ddGcebBe2 wUgjHMJvsmX4mJFbHQlbn8yhUSR3o1seyizhFVBg XEszMu9xrAMdpPlmYwZtTMCyJQq2eU74EWOkmW1b cKScSFf8KDRueJUxkpFwQvQbCOTchLDnnTV3CEQw QJ2sfjyrVDqcJKejJEJispD3CYNfdQQrK4ImESIa JQ6wekwvGOE5BWhgZPByPYL9XcYuLSJdl7Svisf2 JhUkuKEzDYpvsGQqmpsyumVsBWpEEE5WODvqTnfX EPIzKNDVV4PQSYcsuDAnAIWeMPEYOnLAC5QQNWHT DBKMFDiWDFcLU28DSaDKJ3LZZJNNN3QFEuzaK5pN O0ZfJQJabAApsXawqwYyKGupe5ZtYNtiTJNcDN8h aHoyKLVqJG3jILLjN1okmD0usjk4FdCjPIBcLvM1 DYZpfpW6Eku3GBFoQXoco8wef2TpZAAyXDu9jPrv UoZqLWLba0yiuyBkRaRfPTKvVXAoONMzjLPdS792 l1ziq6vlmvBlxNH2VPOqVYX9OHicqcReukZ7NHqg vMTsPxH1LJqqaaPeDQoshwCeiiYqTmd1ZDIaK896 IWA0wZkpi2bjBHX6AYUhXQPoGoVrKc5keMZpJ255 GMExZZXZZEUwiJy8QUOlebGphfYbzQDEn935K935 c1zeYIFaipQtnVnFfwdoz3ndG211MCUqaGEcarRk CwDgEWEftCMyiKT5VRWcXA3uwsrcZXewRWkvNLEf dtY3YDZvrWEuF6FwYWPnZA1dmocoGJB8XUbxVUYw BVK2IdBeSGWen0Krrex2MiMjcs2zua37SGC8x8Ax qTljKNU3ZKL8VlBpIa3bkTInMFXgDL7yPoDskZHk DQVdmc33rJrtTWktVWM0FYKuhxSqw1Mht3yhAeDn vuHsA7dgM1SmDCExWZZlUWTvOvWkfjLur9Ceq6Xi jMYwuGp0i1nwEKQkPRRltXqef4rpJYV5HRWtwGDj B8zttE6iIFLiJP8dlthgz3yfAIblHErmUIBdmWO0 aoV3OGYbuDDtI4WjmG4wTWDvYDfeJOMwold0QkOn Vs4ifZYjdZvfSJawZsywFFqhEBHssiJkqbIblHxj ZGVjXHBsYWluXHBsYWluXGYwXGZzMjRccWxcbGFu HtQrFuNgcPkojJqkGVntLlPwTNQgQBndK8lwReDe YwPbZes3EFQqtTDeIDBxLfm6EOFwdEVcMEAQcUon xQ7zCNKijWxwsV6znXP6OZZjpbGokEFDmA4sGBFL bF6bTiRuINWgXzQ0KVzdCgQflXEzgY2= COMMENT (test code = 3359) h6npjDUoFFQxyQFvMCDpM4rgugRcOWEusYTcS5Pw fuwpYKghZX6cQS3aqLcptCWsjLBwPVWbNqHbx4kj i146nXPng1teONNBgonhqZp4fIpvA68in2K6Ezpp T92gwEDvXCT2QXCwFVOviXHdDTWmHWZ9SVDrbKIx Q8ccPCRmDL6favctQQegFDosBTHtnGY2OMIncRIc K5MaZRDfHAfvLUOqsas0AjOrRm3vgOPmgYpvWRaz JWIqSXXfYWmpPLNxNxLaAPxgEDLqxSLkY1jxmoJz y7EyuABiHTttezJgmpUglt4hGCIdIpH6wJBmJGze Z45cs9klTOM7WWQZguxnuiPuSGFvc5QhgC5yhLEj KQPnTNIkd0kjE1iooRIipfB3FpTyIjIqQmRqOAMm SCM6IPDpxN2ayNOadR== CPT Code(s) (test code = 3357) w1vzeIGwQWZakSUlVLRqZ1tvfiZoMOKieWGq Z3Bh kpqnGLoxJM2oQH0rsNfshIYurLZeJLKvRyGit8is u621sTQdc0fdYICLhhhyhZw6vHshK83dz3E4Bmbw J25rkCMqSMR3LKMuTTZneDRlNNGzRIU0UXGvuIHt K7uxPVDwDP8hosgeUJbqNOqvSYZeqBJ3NISnoEJz J1LiVTBhKSqjOHHpuun7IgZgDx4dsUTpjWjsRYzy YXJkXHBsYWluXGZzMjAgODgzMDBccGFyfQ== CLINICAL HISTORY (test code = 3356) s4lviYXyVSReyNAuNNSiE6cjqiYqQMP lnPPpX5Hq hmaqYNnvZE8aJC7khIesmJWyoKNaSKYjRsJuc2cl n964rUKbt9meCLLBMJvsBGODHFu0l8ynSDVZrbfn mZx4gNnjX56cd9M5TmmsU50plTDrQAY5MEViKAJx aBQoZWMkSEP8HGTboZHbQ6vbVECoQL1zrgtlKAja GQpoWHCibPQ9HFZkeRCoK9NhYGZlTHylOOKmxcy8 LdXxYh9imXJzeGuyDRdwHFDbWZLbAAobTOHuHGQf SpDcNFhlOMY0CF2ryJIiUZCqsIWcijypSCvbUoU0 TMPtIOOHrCUiysosDIonUK4isSKflOKzIGSyRMQ0 EOihJZzYAVthGXgkw5WhoYnlCTTqynkdl7JrjuKi aGVhcnQgZmFpbHVyZVxwYXJ9 GROSS DESCRIPTION (test code = i9oopGMtLHLyuTYzIBMkD0madaIfIGTjrKOi [facility] [id number]) jxguQQcpZG6bKN9rpTeclMZgdDXqSRZrWzTof8ju z345cQRda6azKJMMUOubXJYWYOd7e3jdFPNNzibp dBy7mPqsY82qj7V0WqwcF43nrTUcZHH1REIjLKOh vZXgKKXgMXN4YUVtpUViJ9ixLDWeYR0aojkrYDau NMiiOZYztPI7PBEogODvB4OcCZOuCQpkITYovcl0 ZyOmIu9qnXNasSotARenOzxupJdqv2RypXVpXZyh ESBaWTEiUFlmDLPgH6MYGTPpNKJzXCL5YQvnCHXQ JLEaZpMeZqc5SBWVLIZeGVIxVmBoWhs0OjMqRSIF IDEyMzAwMDAwMDkgXFxuaCBcXHQgMSBcXGZsIFxc ubT3t0giGZOmqCReZFI1RErmhLOaBBZcMWBbQFlh XqHGLeWrHmFpEyN3Krz6DXAzZKq6KMnyX3GCOPGu ORD8Jkj6XQO6JwJ0DBe1WUFLTj6sNvf3ZlZmYfQ6 AWC3TKN6FEcsvEBbTHmzi2CiGuBeEOQmEBhzavT7 IMXiodHlxGtzqG1pCeLdYhQxGqKYNfGWfKIfSEzg PETsE9e7IJPiqsewRZZwSNSyTpEaHYEmK3nxHyNs XBZkEyFuTSTzY6wzFAAoFLFmFGxuBKWnLJLjSrBe QzJzPFk9OUByqKIwJOAzcO6sdBDrV12gKSzadDXb a1RhtQ1jJOJqMoFaiBYnpdPyCX8jgSrkOQKHmZEl g8RcT2acZE8pzMMql4JfuNx9tIGtEXtoVALljx2h kTdvRUDcWDKam1O2ISPyGZMfrN2mPEMxJY2fRKxk Nc0mBRAaqyidqjZml8DeFKVpvYPxiTpwxhqbINJp Q3VjT1AwgiE6x7ouyNkcm5EjrTWrTU6ovOVmrB== MICROSCOPIC DESCRIPTION (test code = s5rcxETeSCVbyONiWGIbY3zrlrKiOG IuvNTjS3Ob 3371) vrnxFJtyAZ2sNI9zfAykgGZaiFBoSHJdSjNby3pd v421uDNia4vbLUSPimtcfKk3sOyeJ67sm5G9Jqeh P49urFZzRFZ5HWHqOKPdyKZyLWUiZUH1IYFplBAl D4jaAJCuNK0zuskvLPoxOEmcBDEmyXJ7OFUohQXk Z8CvDUOzVCxmFTBfzgm8KdDqPk8exNTwdIrkQFoj YXJkXHBsYWluXGZzMjAgUExFQVNFIFJFRkVSIFRP AIHRCCDGE2VZTvHASGPKMS0PSQZRS0TzCIQZGSYT J94RODQOLcSOIh9DDXtQWplwDUS5 [facility] MedicineTISS[facility] [id number] 10:06:01Surgical Pathology Report Case: [id number] Authorizing Provider: Sonny Munguia MD Collected: 02/01/2023 10:46 AM Ordering Location: [address] Med/Surg Received: 02/01/2023 10:47 AM Pathologist: Kiesha Radford MD Specimen: Kidney, Right KIDNEY, RIGHT, BIOPSY: - ADVANCED DIABETIC GLOMERULOSCLEROSIS, CLASS IV Signing Pathologist Direct Phone Line: [phone] signed by Kiesha Radford MD on 02/11/2023 at 10:05 AMThe physicians office was informed of the diagnosis by kojo Baires on 02/04/2023 at 12:51 [id number] crisis, diabetes. Chronic kidney disease stage III, diastolic congestive heart failureA. Kidney, RightReceived is a single core, measuring 2.2 cm in length. The specimen is submitted in formalin and forwarded to [email or web address] for evaluationPLEASE REFER TO THE SCANNED REPORT FOR ADDITIONAL INFORMATIONDRUG SCREEN, URINE, [id number] 06:46:43 Test Item Value Reference Range Interpretation Comments SCAN RESULT (test code = 6083287) SEE SCAN Drug screen, urine, [id number] 06:46:43Scan Kafztc7002/08/2023 6:46 AM CDTLetsCram DIAGNOSTIC INCORPORATEDC[facility] MedicinePOC-Glucose meter 2023-02-04 12:27:48 Test Item Value Reference Range Interpretation Comments POC-Glucose Meter (test 132 mg/dL 70-110 H : TE STED AT [facility] code = 1538) [address] [facility] [id number]: Graves Registration Specialist/Techni lorna ID = [id number] for Jennifer Syed Lab Interpretation (test Abnormal code = 77988-8) [facility] MedicinePOCT-GLUCOSE [id number] 12:27:48 Test Item Value Reference Range Interpretation Comments POC-GLUCOSE METER 132 mg/dL 70-110 H : TESTED A T [facility] 1317 (BEAKER) ([facility], = 1538) [place] [id number]: Graves Registration Specialist/Techni lorna ID = [id number] for Jennifer Coy POCT-GLUCOSE [id number] 07:02:40 Test Item Value Reference Range Interpretation Comments POC-GLUCOSE METER 122 mg/dL 70-110 H : TESTED A T [facility] 1317 (BEAKER) (test code [facility], = 1538) [place] [id number] 478: Graves Registration Specialist/Techni lorna ID = [id number] for Lorena Chmapion [id number] 06:52:51 Test Item Value Reference Range Interpretation Comments MAGNESIUM (BEAKER) (test code = 2.1 mg/dL 1.5-3.0 627) Graves Registration Specialist ID - [id number] ID - [id number] ID - PEVS12Nlazvelc ID - [id number] BASIC METABOLIC [id number] 06:52:19 Test Item Value Reference Range Interpretation Comments SODIUM (BEAKER) 138 meq/L 135-148 (test code = 381) POTASSIUM 3.6 meq/L 3.6-5.5 (BEAKER) (test code = 379) CHLORIDE (BEAKER) 102 meq/L 98-106 (test code = 382) CO2 (BEAKER) 23 meq/L 20-29 (test code = 355) BLOOD UREA 54 mg/dL 10-26 H NITROGEN (BEAKER) (test code = 354) CREATININE 5.57 mg/dL 0.50-1.20 H (BEAKER) (test code = 358) GLUCOSE RANDOM 116 mg/dL 70-110 H (BEAKER) (test code = 652) CALCIUM (BEAKER) 8.1 mg/dL 8.5-10.5 L (test code = 697) EGFR (BEAKER) 9 Interpretatio n of eGFR (test code = mL/min/1.73 values Stage De scription 1092) sq m Result G1 Norm al or [...] not appl icable for dialysis patien ts Graves Registration Specialist ID - [id number] ID - [id number] ID - JWPD41Tgqtygpt ID - ZNHP10Jcvcxnbu ID - KUUC42Oxglwawc ID - SVUC79Dlgptgym ID - OIZC58Vpsvsyxj ID - OMEM21Xuukdeel ID - HDRW62Ureanati ID - [id number] 06:50:15 Test Item Value Reference Range Interpretation Comments PHOSPHORUS (BEAKER) (test code = 4.4 mg/dL 2.5-4.5 604) Graves Registration Specialist ID - [id number]-FSCKIED [id number] 22:04:05 Test Item Value Reference Range Interpretation Comments POC-GLUCOSE METER 158 mg/dL 70-110 H : TESTED A T [address] (BEAKER) (test code [address], = 1538) [place] [id number] 478: Graves Registration Specialist/Techni lorna ID = [id number] for Lorena Champion POCT-GLUCOSE [id number] 17:40:59 Test Item Value Reference Range Interpretation Comments POC-GLUCOSE METER 145 mg/dL 70-110 H : TESTED A T [address] (BEAKER) (test code [address], = 1538) [place] [id number] 478: Graves Registration Specialist/Techni lorna ID = [id number] for Cristy paras, Arti POCT-GLUCOSE [id number] 12:15:01 Test Item Value Reference Range Interpretation Comments POC-GLUCOSE METER 129 mg/dL 70-110 H : TESTED A T [address] (BEAKER) (test code [address], = 1538) [place] [id number]: Graves Registration Specialist/Techni lorna ID = [id number] for Cristy es, Arti POCT-GLUCOSE [id number] 07:37:42 Test Item Value Reference Range Interpretation Comments POC-GLUCOSE METER 133 mg/dL 70-110 H : TESTED A T [address] (BEAKER) (test code [address], = 1538) [place] [id number]: Graves Registration Specialist/Techni lorna ID = [id number] for Tray Cantrell [id number] 06:52:24 Test Item Value Reference Range Interpretation Comments MAGNESIUM (BEAKER) (test code = 2.4 mg/dL 1.5-3.0 627) Graves Registration Specialist ID - [id number] ID - [id number] ID - [id number] ID - [id number] METABOLIC [id number] 06:51:22 Test Item Value Reference Range Interpretation Comments SODIUM (BEAKER) 136 meq/L 135-148 (test code = 381) POTASSIUM 3.8 meq/L 3.6-5.5 (BEAKER) (test code = 379) CHLORIDE (BEAKER) 103 meq/L 98-106 (test code = 382) CO2 (BEAKER) 22 meq/L 20-29 (test code = 355) BLOOD UREA 56 mg/dL 10-26 H NITROGEN (BEAKER) (test code = 354) CREATININE 5.94 mg/dL 0.50-1.20 H (BEAKER) (test code = 358) GLUCOSE RANDOM 134 mg/dL 70-110 H (BEAKER) (test code = 652) CALCIUM (BEAKER) 8.4 mg/dL 8.5-10.5 L (test code = 697) EGFR (BEAKER) 8 Interpretatio n of eGFR (test code = [...] not appl icable for dialysis patien ts Graves Registration Specialist ID - [id number] ID - [id number] ID - JYRIKBBBT315Jhpjykmc ID - UNVAUPMTM903Jclsaqyc ID - YNQIQCCIM768Culkctyg ID - OFBGYZRVA655Kphptymh ID - KRVPAUGVY063Buhtdvzt ID - CDENFSUXS229Elwjrycp ID - GMQGHKUYV101Xbmejgep ID - [id number] 06:49:21 Test Item Value Reference Range Interpretation Comments PHOSPHORUS (BEAKER) (test code = 4.5 mg/dL 2.5-4.5 604) Graves Registration Specialist ID - [id number] (HEMOGRAM ONLY)2023-02-03 06:39:08 Test Item Value Reference Range Interpretation Comments WHITE BLOOD CELL COUNT (BEAKER) 7.3 K/ L 4.0-10.0 (test code = 775) RED BLOOD CELL COUNT (BEAKER) 2.91 M/ L 4.00-5.00 L (test code = 761) HEMOGLOBIN (BEAKER) (test code = 8.8 GM/DL 12.0-15.5 L 410) HEMATOCRIT (BEAKER) (test code = 26.3 % 36.0-46.0 L 411) MEAN CORPUSCULAR VOLUME (BEAKER) 90 fL 82-99 (test code = 753) MEAN CORPUSCULAR HEMOGLOBIN 30.2 pg 27.0-33.0 (BEAKER) (test code = 751) MEAN CORPUSCULAR HEMOGLOBIN CONC 33.5 GM/DL 32.0-36.0 (BEAKER) (test code = 752) RED CELL DISTRIBUTION WIDTH 12.1 % 12.0-15.0 (BEAKER) (test code = 412) PLATELET COUNT (BEAKER) (test 184 K/CU MM 150-430 code = 756) MEAN PLATELET VOLUME (BEAKER) 11.5 fL 6.0-11.5 (test code = 754) NUCLEATED RED BLOOD CELLS 0 /100 WBC 0-0 (BEAKER) (test code = 413) POCT-GLUCOSE [id number] 21:38:58 Test Item Value Reference Range Interpretation Comments POC-GLUCOSE METER 122 mg/dL 70-110 H : TESTED A T [address] (BEAKER) (test code [facility], = 1538) [place] [id number]: Graves Registration Specialist/Techni lorna ID = [id number] for Magda [facility] cesarAlee alexis POCT-GLUCOSE [id number] 16:33:23 Test Item Value Reference Range Interpretation Comments POC-GLUCOSE METER 147 mg/dL 70-110 H : TESTED A T [address] [address] (BEAKER) (test code [facility], = 1538) [place] [id number]: Graves Registration Specialist/Techni lorna ID = [id number] for Rubén michael Jennifer POCT-GLUCOSE [id number] 12:06:21 Test Item Value Reference Range Interpretation Comments POC-GLUCOSE METER 159 mg/dL 70-110 H : TESTED A T [address] (BEAKER) (test code [facility], = 1538) [place] [id number]: Graves Registration Specialist/Techni lorna ID = [id number] for Rubén Jennifer rodriguez URINE [id number] 09:50:08 Test Item Value Reference Range Interpretation Comments CULTURE ([facility]) (test ESCHERICHIA COLI A > 100,000 col/mL code = 1095) Escherichia col i Amikacin (test code = S 1) Ampicillin + Sulbactam S (test code = 6) Aztreonam (test code = S 32) Cefepime (test code = S 51) Cefoxitin (test code = S 68) Ceftazidime (test code S = 27) Ceftriaxone (test code S = 52) Ertapenem (test code = S 38) Gentamicin (test code S = 18) Levofloxacin (test R code = 22) Meropenem (test code = S 34) Nitrofurantoin (test S code = 23) Piperacillin + S Tazobactam (test code = 29) Tetracycline (test S code = 2) Tobramycin (test code S = 25) Trimethoprim + S Sulfamethoxazole (test code = 47) >100,000 col/mL skin floraIf your patient does not have signs or symptoms of UTI, it is recommended NOT to treat, with the exception of and prior to urologic procedures.BASIC METABOLIC [id number] 07:27:48 Test Item Value Reference Range Interpretation Comments SODIUM (BEAKER) 139 meq/L 135-148 (test code = 381) POTASSIUM 3.9 meq/L 3.6-5.5 (BEAKER) (test code = 379) CHLORIDE (BEAKER) 105 meq/L 98-106 (test code = 382) CO2 (BEAKER) 20 meq/L 20-29 (test code = 355) BLOOD UREA 60 mg/dL 10-26 H NITROGEN (BEAKER) (test code = 354) CREATININE 6.42 mg/dL 0.50-1.20 H (BEAKER) (test code = 358) GLUCOSE RANDOM 105 mg/dL 70-110 (BEAKER) (test code = 652) CALCIUM (BEAKER) 8.4 mg/dL 8.5-10.5 L (test code = 697) EGFR (BEAKER) 7 Interpretatio n of eGFR (test code = [...] not appl icable for dialysis patien ts Graves Registration Specialist ID - JAQUELYNNEOperator ID - JAQUELYNNEOperator ID - JAQUELYNNEOperator ID - JAQUELYNNEOperator ID - JAQUELYNNEOperator ID - JAQUELYNNEOperator ID - JAQUELYNNEOperator ID - JAQUELYNNEOperator ID - JAQUELYNNEOperator ID - [id number] 07:27:48 Test Item Value Reference Range Interpretation Comments MAGNESIUM (BEAKER) (test code = 2.2 mg/dL 1.5-3.0 627) Graves Registration Specialist ID - JAQUELYNNEOperator ID - JAQUELYNNEOperator ID - JAQUELYNNEOperator ID - [id number] 07:25:13 Test Item Value Reference Range Interpretation Comments PHOSPHORUS (BEAKER) (test code = 5.7 mg/dL 2.5-4.5 H 604) Graves Registration Specialist ID - [id number] (HEMOGRAM ONLY)2023-02-02 07:03:05 Test Item Value Reference Range Interpretation Comments WHITE BLOOD CELL COUNT (BEAKER) 6.5 K/ L 4.0-10.0 (test code = 775) RED BLOOD CELL COUNT (BEAKER) 2.82 M/ L 4.00-5.00 L (test code = 761) HEMOGLOBIN (BEAKER) (test code = 8.4 GM/DL 12.0-15.5 L 410) HEMATOCRIT (BEAKER) (test code = 25.8 % 36.0-46.0 L 411) MEAN CORPUSCULAR VOLUME (BEAKER) 92 fL 82-99 (test code = 753) MEAN CORPUSCULAR HEMOGLOBIN 29.8 pg 27.0-33.0 (BEAKER) (test code = 751) MEAN CORPUSCULAR HEMOGLOBIN CONC 32.6 GM/DL 32.0-36.0 (BEAKER) (test code = 752) RED CELL DISTRIBUTION WIDTH 12.3 % 12.0-15.0 (BEAKER) (test code = 412) PLATELET COUNT (BEAKER) (test 177 K/CU MM 150-430 code = 756) MEAN PLATELET VOLUME (BEAKER) 11.8 fL 6.0-11.5 H (test code = 754) NUCLEATED RED BLOOD CELLS 0 /100 WBC 0-0 (BEAKER) (test code = 413) POCT-GLUCOSE [id number] 21:32:26 Test Item Value Reference Range Interpretation Comments POC-GLUCOSE METER 103 mg/dL 70-110 : [facility] ([facility]) (test code [address] [facility] [address], = 1538) [facility] 77 478: Graves Registration Specialist/Techni lorna ID = [id number] for Aaron Cotton POCT-GLUCOSE [id number] 16:04:23 Test Item Value Reference Range Interpretation Comments POC-GLUCOSE METER 146 mg/dL 70-110 H : Notified RN/MD: TESTED (BEAKER) (test code AT [address] = 15[address]) [address], [facility] [id number]: Graves Registration Specialist/Techni lorna ID = [id number] for LeroyDavid swanson US RENAL [id number] 15:04:02 [facility] 1970 Sex: FPROCEDURE:Image guided right renal BiopsyCLINICAL HISTORY: CATHERINE on CKDOPERATOR: GRACE MaloneyTHESIA: Patient was reassessed immediately prior to theadministration of moderate sedation. Versed IV 1.5 mg, Fentanyl IV 75mcg was used for moderate sedation monitored under my direction. Totalintraservice time ofsedation was 30 minutes. The patient's vital signswere monitored throughout the procedure were recorded in the patient'smedical record by the nurse.Presedation reassessment of the patient, including vital signs, status,consciousness and orientation, and relevant laboratory results wascompleted immediately before the recorded preprocedure timeout asdocumented in the electronic medical record for this p rocedure. Moderatesedation was then administered. Estimated Blood Loss: < 5ccSamples: As below.PROCEDURE: The risks, benefits, and alternatives to the procedure werediscussed with the patient/healthcare proxy. All questions wereanswered and informed consent was obtained. A universal timeout wasperformed prior to starting the procedure. All elements of maximalsterile barrier technique, hand hygiene, skin preparation and steriletechniques were followed.Preliminary imaging of the right kidney was performed to delineate asafe path to the area of interest. Lidocaine was used for cutaneousanesthesia. Under imaging guidance the biopsy needle was advanced intothe right kidney. The first 18-gauge pass yielded a core sample. Asecond pass was made but did not yield a sample. A new biopsy gun wasobtainedat this point for a third pass, which also did not yield anybiopsy sample. Due to 3 18-gauge passes,decision was made not to makefurther passes to decrease the risk of bleeding.A sterile dressing was placed. The patient tolerated the procedure welland was returned to the holding area/floor in stable condition.IMPRESSION:Successful US-guided right renal biopsy.Electronically Signed By: Steven Oneil02/01/2023 15:06 CDTWorkstation Name: [id number] 12:23:52 Test Item Value Reference Range Interpretation Comments POC-GLUCOSE METER 150 mg/dL 70-110 H : Notified RN/MD: TESTED (BEAKER) (test code AT [address] = 1538) [facility] [id number]: Graves Registration Specialist/Techni lorna ID = [id number] for David Diego [id number] 06:31:12 Test Item Value Reference Range Interpretation Comments MAGNESIUM (BEAKER) 2.2 mg/dL 1.5-3.0 Specimen moderately (test code = 627) hemolyzed Graves Registration Specialist ID - [id number] ID - [id number] ID - CRZQ35Hvlpwmpv ID - [id number] BASIC METABOLIC [id number] 06:29:55 Test Item Value Reference Range Interpretation Comments SODIUM (BEAKER) 135 meq/L 135-148 (test code = 381) POTASSIUM 4.5 meq/L 3.6-5.5 Specimen modera tely (BEAKER) (test hemolyzed code = 379) CHLORIDE (BEAKER) 102 meq/L 98-106 (test code = 382) CO2 (BEAKER) 18 meq/L 20-29 L (test code = 355) BLOOD UREA 51 mg/dL 10-26 H NITROGEN (BEAKER) (test code = 354) CREATININE 6.64 mg/dL 0.50-1.20 H Specimen modera tely (BEAKER) (test hemolyzed code = 358) GLUCOSE RANDOM 109 mg/dL 70-110 (BEAKER) (test code = 652) CALCIUM (BEAKER) 8.3 mg/dL 8.5-10.5 L (test code = 697) EGFR (BEAKER) 7 Interpretatio n of eGFR (test code = [...] not appl icable for dialysis patien ts Graves Registration Specialist ID - [id number] ID - [id number] ID - ITLQ81Culsilxp ID - XLPG61Ktujjcwv ID - UZVC89Buugfpxa ID - XDFG11Yukloftv ID - PTYN40Kpiloyys ID - DUGX24Wmpvockd ID - UAOF05Wzmijcbn ID - [id number] 06:28:27 Test Item Value Reference Range Interpretation Comments PHOSPHORUS (BEAKER) 5.5 mg/dL 2.5-4.5 H Specimen moderately (test code = 604) hemolyzed Graves Registration Specialist ID - [id number] (HEMOGRAM ONLY)2023-02-01 06:08:13 Test Item Value Reference Range Interpretation Comments WHITE BLOOD CELL COUNT (BEAKER) 7.2 K/ L 4.0-10.0 (test code = 775) RED BLOOD CELL COUNT (BEAKER) 3.20 M/ L 4.00-5.00 L (test code = 761) HEMOGLOBIN (BEAKER) (test code = 9.6 GM/DL 12.0-15.5 L 410) HEMATOCRIT (BEAKER) (test code = 29.3 % 36.0-46.0 L 411) MEAN CORPUSCULAR VOLUME (BEAKER) 92 fL 82-99 (test code = 753) MEAN CORPUSCULAR HEMOGLOBIN 30.0 pg 27.0-33.0 (BEAKER) (test code = 751) MEAN CORPUSCULAR HEMOGLOBIN CONC 32.8 GM/DL 32.0-36.0 (BEAKER) (test code = 752) RED CELL DISTRIBUTION WIDTH 12.4 % 12.0-15.0 (BEAKER) (test code = 412) PLATELET COUNT (BEAKER) (test 227 K/CU MM 150-430 code = 756) MEAN PLATELET VOLUME (BEAKER) 11.5 fL 6.0-11.5 (test code = 754) NUCLEATED RED BLOOD CELLS 0 /100 WBC 0-0 (BEAKER) (test code = 413) POCT-GLUCOSE [id number] 21:14:18 Test Item Value Reference Range Interpretation Comments POC-GLUCOSE METER 84 mg/dL 70-110 : TESTED A T [facility] [address] (BEAKER) (test [facility] [place] [id number]: Graves Registration Specialist/Techni lorna ID = [id number] for Lorena Champion POCT-GLUCOSE [id number] 17:33:48 Test Item Value Reference Range Interpretation Comments POC-GLUCOSE METER 115 mg/dL 70-110 H : TESTED A T [address] [address] (BEAKER) (test code [address], = 1538) [place] [address] 478: Graves Registration Specialist/Techni lorna ID = [id number] for Artis ie, Justiceneil IMMUNOFIXATION ELECTROPHORESIS (ROLLY)2023-01-31 17:04:24 Test Item Value Reference Range Interpretation Comments IMMUNOGLOBULIN G (IGG) 1117 mg/dL 540-1822 (BEAKER) (test code = 427) IMMUNOGLOBULIN A (IGA) 218 mg/dL 63-484 (BEAKER) (test code = 639) IMMUNOGLOBULIN M (IGM) 104 mg/dL 22-293 (BEAKER) (test code = 638) SERUM ROLLY ID (BEAKER) No monoclonal (test code = 1814) protein detected. [id number] Armand Saha M.D. (BEAKER) (test code = (electonic 5830) signature) Clinical Speech Therapist Technician - [facility] [id number] 17:03:52 Test Item Value Reference Range Interpretation Comments IMMUNOGLOBULIN A (IGA) 218 mg/dL 63-484 (BEAKER) (test code = 639) IMMUNOGLOBULIN G (IGG) 1117 mg/dL 540-1822 (BEAKER) (test code = 427) IMMUNOGLOBULIN M (IGM) 104 mg/dL 22-293 (BEAKER) (test code = 638) SERUM IT ID [id number](BEAKER) The IT result is (test code = 3817) inconclusive. Refer to ROLLY. [facility]-PATHOLOGIST-"[id number]" Armand Saha (BEAKER) (test code = 3805) Sampson (electonic signature) Graves Registration Specialist ID - ADMINPROTEIN ELECTROPHORESIS, SERUM WITH REFLEX TO IMMUNOTYPING 2023-01-31 17:03:05 Test Item Value Reference Range Interpretation Comments ALBUMIN FRACTION 2.4 gm/dL 3.5-5.5 L (BEAKER) (test code = 405) ALPHA 1 FRACTION 0.2 gm/dL 0.2-0.4 (BEAKER) (test code = 389) ALPHA 2 FRACTION 0.8 gm/dL 0.4-1.0 (BEAKER) (test code = 390) BETA FRACTION 0.7 gm/dL 0.5-1.1 (BEAKER) (test code = 392) GAMMA GLOBULIN 0.9 gm/dL 0.7-1.6 FRACTION (BEAKER) (test code = 391) INTERPRETATION-119 There is a questionable (BEAKER) (test code area in the gamma region. = 4466) Refer to serum immunotyping and immunofixation electrophoresis. [id number] Armand Saha M.D. (BEAKER) (test code (electonic signature) = 0736) PROTEIN TOTAL SERUM, 5.1 gm/dL 6.0-8.3 L SPEP (BEAKER) (test code = 4357) Clinical Speech Therapist Technician - SFOperator ID - ADMINOperator ID - ADMPOCT-GLUCOSE METER 2023-01-31 12:30:17 Test Item Value Reference Range Interpretation Comments POC-GLUCOSE METER 113 mg/dL 70-110 H : TESTED A T [address] (BEAKER) (test code [address], = 1538) [facility] 77 478: Graves Registration Specialist/Techni lorna ID = [id number] for Ajay Vaughn POCT-GLUCOSE [id number] 06:29:20 Test Item Value Reference Range Interpretation Comments POC-GLUCOSE METER 115 mg/dL 70-110 H : TESTED A T [address] (BEAKER) (test code [address], = 1538) [facility] 77 478: Graves Registration Specialist/Techni lorna ID = [id number] for Saniya Ochoa BASIC METABOLIC [id number] 05:29:07 Test Item Value Reference Range Interpretation Comments SODIUM (BEAKER) 138 meq/L 135-148 (test code = 381) POTASSIUM 3.9 meq/L 3.6-5.5 (BEAKER) (test code = 379) CHLORIDE (BEAKER) 104 meq/L 98-106 (test code = 382) CO2 (BEAKER) 20 meq/L 20-29 (test code = 355) BLOOD UREA 50 mg/dL 10-26 H NITROGEN (BEAKER) (test code = 354) CREATININE 6.56 mg/dL 0.50-1.20 H (BEAKER) (test code = 358) GLUCOSE RANDOM 105 mg/dL 70-110 (BEAKER) (test code = 652) CALCIUM (BEAKER) 8.3 mg/dL 8.5-10.5 L (test code = 697) EGFR (BEAKER) 7 Interpretatio n of eGFR (test code = mL/min/1.73 values Stage De scription 1092) sq m Result G1 Leslie l or high >=90 G2 Mildly decreased 60-89 G3a Mildl y to moderately 45-5 9 G3b Moderately to s everely 30-44 G4 Severl y decreased 15-29 G5 Kidney failure <15Reported eGF R is based on the CKD-EPI 1 equation that d oes not use a race coefficientEsti mated GFR is not as accur ate as Creatinine Adriana corona in predicting glom erular filtration rate . Estimated GFR is not appl icable for dialysis patien ts Graves Registration Specialist ID - LITOOperator ID - LITOOperator ID - LITOOperator ID - LITOOperator ID - LITOOperator ID - LITOOperator ID - LITOOperator ID - LITOOperator ID - LITOOperator ID - [id number] 05:24:38 Test Item Value Reference Range Interpretation Comments MAGNESIUM (BEAKER) (test code = 2.0 mg/dL 1.5-3.0 627) Graves Registration Specialist ID - LITOOperator ID - LITOOperator ID - LITOOperator ID - VICTOR HUGO [id number] 05:21:59 Test Item Value Reference Range Interpretation Comments PHOSPHORUS (BEAKER) (test code = 5.5 mg/dL 2.5-4.5 H 604) Graves Registration Specialist ID - LITOCBC W/PLT COUNT & AUTO [id number] 05:04:06 Test Item Value Reference Range Interpretation Comments WHITE BLOOD CELL COUNT (BEAKER) 6.7 K/ L 4.0-10.0 (test code = 775) RED BLOOD CELL COUNT (BEAKER) 3.07 M/ L 4.00-5.00 L (test code = 761) HEMOGLOBIN (BEAKER) (test code = 9.1 GM/DL 12.0-15.5 L 410) HEMATOCRIT (BEAKER) (test code = 28.5 % 36.0-46.0 L 411) MEAN CORPUSCULAR VOLUME (BEAKER) 93 fL 82-99 (test code = 753) MEAN CORPUSCULAR HEMOGLOBIN 29.6 pg 27.0-33.0 (BEAKER) (test code = 751) MEAN CORPUSCULAR HEMOGLOBIN CONC 31.9 GM/DL 32.0-36.0 L (BEAKER) (test code = 752) RED CELL DISTRIBUTION WIDTH 12.6 % 12.0-15.0 (BEAKER) (test code = 412) PLATELET COUNT (BEAKER) (test 179 K/CU MM 150-430 code = 756) MEAN PLATELET VOLUME (BEAKER) 11.2 fL 6.0-11.5 (test code = 754) NUCLEATED RED BLOOD CELLS 0 /100 WBC 0-0 (BEAKER) (test code = 413) NEUTROPHILS RELATIVE PERCENT 66 % (BEAKER) (test code = 429) LYMPHOCYTES RELATIVE PERCENT 26 % (BEAKER) (test code = 430) MONOCYTES RELATIVE PERCENT 6 % (BEAKER) (test code = 431) EOSINOPHILS RELATIVE PERCENT 1 % (BEAKER) (test code = 432) BASOPHILS RELATIVE PERCENT 0 % (BEAKER) (test code = 437) NEUTROPHILS ABSOLUTE COUNT 4.44 K/ L 1.80-8.00 (BEAKER) (test code = 670) LYMPHOCYTES ABSOLUTE COUNT 1.78 K/ L 1.48-4.50 (BEAKER) (test code = 414) MONOCYTES ABSOLUTE COUNT (BEAKER) 0.37 K/ L 0.00-1.30 (test code = 415) EOSINOPHILS ABSOLUTE COUNT 0.07 K/ L 0.00-0.50 (BEAKER) (test code = 416) BASOPHILS ABSOLUTE COUNT (BEAKER) 0.03 K/ L 0.00-0.20 (test code = 417) IMMATURE GRANULOCYTES-RELATIVE 0.60 % 0.00-0.00 H PERCENT (BEAKER) (test code = 2801) POCT-GLUCOSE [id number] 21:41:04 Test Item Value Reference Range Interpretation Comments POC-GLUCOSE METER 120 mg/dL 70-110 H : TESTED A T [facility] [address] (BEAKER) ([facility] [place] [id number]: Graves Registration Specialist/Techni lorna ID = [id number] for Saniya Ochoa POCT-GLUCOSE [id number] 21:40:57 Test Item Value Reference Range Interpretation Comments POC-GLUCOSE METER 139 mg/dL 70-110 H : TESTED A T [facility] [address] (BEAKER) ([facility] [address] = 1538[facility] [place] [id number]: Graves Registration Specialist/Techni lorna ID = [id number] for Maricel Vaughnmaria elena POCT-GLUCOSE [id number] 11:16:06 Test Item Value Reference Range Interpretation Comments POC-GLUCOSE METER 143 mg/dL 70-110 H : TESTED A T [facility] [address] (BEAKER) (test code [facility] [address], = 1538) [place] [id number]: [place] Registration Specialist/Techni lorna ID = [id number] for Jenniefr Coy POCT-GLUCOSE [id number] 11:15:41 Test Item Value Reference Range Interpretation Comments POC-GLUCOSE METER 145 mg/dL 70-110 H : TESTED A T SLSL 1317 (BEAKER) (test code [address], = 1538) [facility] 77 [id number]: [place] Registration Specialist/Techni lorna ID = [id number] for Saniya Ochoa CBC W/PLT COUNT & AUTO [id number] 08:03:32 Test Item Value Reference Range Interpretation Comments WHITE BLOOD CELL COUNT (BEAKER) 6.6 K/ L 4.0-10.0 (test code = 775) RED BLOOD CELL COUNT (BEAKER) 3.15 M/ L 4.00-5.00 L (test code = 761) HEMOGLOBIN (BEAKER) (test code = 9.6 GM/DL 12.0-15.5 L 410) HEMATOCRIT (BEAKER) (test code = 29.2 % 36.0-46.0 L 411) MEAN CORPUSCULAR VOLUME (BEAKER) 93 fL 82-99 (test code = 753) MEAN CORPUSCULAR HEMOGLOBIN 30.5 pg 27.0-33.0 (BEAKER) (test code = 751) MEAN CORPUSCULAR HEMOGLOBIN CONC 32.9 GM/DL 32.0-36.0 (BEAKER) (test code = 752) RED CELL DISTRIBUTION WIDTH 12.9 % 12.0-15.0 (BEAKER) (test code = 412) PLATELET COUNT (BEAKER) (test 180 K/CU MM 150-430 code = 756) MEAN PLATELET VOLUME (BEAKER) 12.0 fL 6.0-11.5 H (test code = 754) NEUTROPHILS RELATIVE PERCENT 65 % (BEAKER) (test code = 429) LYMPHOCYTES RELATIVE PERCENT 29 % (BEAKER) (test code = 430) MONOCYTES RELATIVE PERCENT 4 % (BEAKER) (test code = 431) EOSINOPHILS RELATIVE PERCENT 1 % (BEAKER) (test code = 432) BASOPHILS RELATIVE PERCENT 1 % (BEAKER) (test code = 437) NEUTROPHILS ABSOLUTE COUNT 4.33 K/ L 1.80-8.00 (BEAKER) (test code = 670) LYMPHOCYTES ABSOLUTE COUNT 1.89 K/ L 1.48-4.50 (BEAKER) (test code = 414) MONOCYTES ABSOLUTE COUNT (BEAKER) 0.29 K/ L 0.00-1.30 (test code = 415) EOSINOPHILS ABSOLUTE COUNT 0.06 K/ L 0.00-0.50 (BEAKER) (test code = 416) BASOPHILS ABSOLUTE COUNT (BEAKER) 0.03 K/ L 0.00-0.20 (test code = 417) Protein, random [id number] 08:01:53 Test Item Value Reference Range Interpretation Comments Protein, Urine (test code = 1122 mg/dL 0-14 H 2888-6) Lab Interpretation (test code = Abnormal 99749-9) [facility]ANDOM [id number] 08:01:53 Test Item Value Reference Range Interpretation Comments PROTEIN, URINE (BEAKER) (test code 1122 mg/dL 0-14 H = 1569) Urinalysis [id number]/[id number] 07:25:15 Test Item Value Reference Range Interpretation Comments Color, UA (test code = Yellow 5778-6) Clarity, UA (test code Cloudy = 5767-9) Specific [place], UA 1.025 1.001-1.035 (test code = 5811-5) pH, UA (test code = 6.0 5.0-8.0 5803-2) Protein, UA (test code >=300 mg/dL Negative A = 44942-1) Glucose, UA (test code Negative Negative = 365) Ketones, UA (test code Negative Negative = 2514-8) Bilirubin, UA (test Negative Negative code = 00792-0) Blood, UA (test code = Trace Negative A 18359-8) Nitrite, UA (test code Negative Negative = 5802-4) Leukocytes, UA (test Moderate Negative A code = 5799-2) Urobilinogen, UA (test 0.2 code = 91035-3) Bacteria, UA (test code Many = 52858-5) RBC, UA (test code = <5 See_Comment [Autom ated 799-7) message] The sy stem which generated this result transmitted reference range : /HPF. The refer ence range was not u sed to interpret th is result as normal/abnormal . WBC, UA (test code = >100 See_Comment [Autom ated 22699-6) message] The sy stem which generated this result transmitted reference range : /HPF. The refer ence range was not u sed to interpret th is result as normal/abnormal . SQUAMOUS EPITHELIAL <5 See_Comment [Automa amina (test code = 83549-0) debraarely e] The system which generated this result transmitted reference range : /HPF. The refer ence range was not u sed to interpret th is result as normal/abnormal . Specimen Source (test code = 2795) Lab Interpretation Abnormal (test code = 85864-6) [facility] W/ [id number] 07:25:15 Test Item Value Reference Range Interpretation Comments COLOR (BEAKER) (test code = 470) Yellow CLARITY (BEAKER) (test code = Cloudy 469) SPECIFIC GRAVITY UA (BEAKER) 1.025 1.001-1.035 (test code = 468) PH UA (BEAKER) (test code = 467) 6.0 5.0-8.0 PROTEIN UA (BEAKER) (test code = >=300 mg/dL Negative A 464) GLUCOSE UA (BEAKER) (test code = Negative Negative 365) KETONES UA (BEAKER) (test code = Negative Negative 371) BILIRUBIN UA (BEAKER) (test code Negative Negative = 462) BLOOD UA (BEAKER) (test code = Trace Negative A 461) NITRITE UA (BEAKER) (test code = Negative Negative 465) LEUKOCYTE ESTERASE UA (BEAKER) Moderate Negative A (test code = 466) UROBILINOGEN UA (BEAKER) (test 0.2 code = 463) BACTERIA (BEAKER) (test code = Many 517) RBC UA-MANUAL (BEAKER) (test code <5 /HPF = 1659) WBC UA-MANUAL (BEAKER) (test code >100 /HPF = 1661) SQUAMOUS EPITHELIAL MANUAL <5 /HPF (BEAKER) (test code = 1663) SOURCE(BEAKER) (test code = 2795) [id number] 07:07:53 Test Item Value Reference Range Interpretation Comments PHOSPHORUS (BEAKER) (test code = 5.3 mg/dL 2.5-4.5 H 604) [id number] 07:07:46 Test Item Value Reference Range Interpretation Comments MAGNESIUM (BEAKER) (test code = 2.1 mg/dL 1.5-3.0 627) BASIC METABOLIC [id number] 07:07:41 Test Item Value Reference Range Interpretation Comments SODIUM (BEAKER) 141 meq/L 135-148 (test code = 381) POTASSIUM 4.0 meq/L 3.6-5.5 (BEAKER) (test code = 379) CHLORIDE (BEAKER) 107 meq/L 98-106 H (test code = 382) CO2 (BEAKER) 20 meq/L 20-29 (test code = 355) BLOOD UREA 43 mg/dL 10-26 H NITROGEN (BEAKER) (test code = 354) CREATININE 5.89 mg/dL 0.50-1.20 H (BEAKER) (test code = 358) GLUCOSE RANDOM 121 mg/dL 70-110 H (BEAKER) (test code = 652) CALCIUM (BEAKER) 8.5 mg/dL 8.5-10.5 (test code = 697) EGFR (BEAKER) 8 Interpretatio n of eGFR (test code = [...] not appl icable for dialysis patien ts POCT-GLUCOSE [id number] 20:58:54 Test Item Value Reference Range Interpretation Comments POC-GLUCOSE METER 132 mg/dL 70-110 H : TESTED A T [facility] (BEAKER) (test code [address], = 1538) [facility] 77 478: Graves Registration Specialist/Techni lorna ID = [id number] for Saniya Ochoa POCT-GLUCOSE [id number] 20:58:19 Test Item Value Reference Range Interpretation Comments POC-GLUCOSE METER 121 mg/dL 70-110 H : TESTED A T [facility] [address] (BEAKER) (test code [address], = 1538) [facility] 77 478: Graves Registration Specialist/Techni lorna ID = [id number] for Eric Daley HEPATITIS PANEL, [id number] 17:05:10 Test Item Value Reference Range Interpretation Comments HEPATITIS A IGM ANTIBODY (BEAKER) Nonreactive Nonreactive (test code = 498) HEPATITIS B CORE IGM ANTIBODY Nonreactive Nonreactive (BEAKER) (test code = 645) HEPATITIS C ANTIBODY (BEAKER) Nonreactive Nonreactive (test code = 367) HEPATITIS B SURFACE ANTIGEN (2) Nonreactive Nonreactive (BEAKER) (test code = 2585) Graves Registration Specialist ID - ADMINCreatinine, random [id number] 16:01:01 Test Item Value Reference Range Interpretation Comments Creatinine, Ur 142.5 mg/dL (test code = 2161-8) JYOTI (test code = Reference Range: No JYOTI) NormalsOperator ID - LILY [facility] MedicineCREATININE, RANDOM [id number] 16:01:01 Test Item Value Reference Range Interpretation Comments CREATININE URINE (BEAKER) (test 142.5 mg/dL code = 375) Reference Range: No NormalsOperator ID - LORIEHSodium, random [id number] 15:53:30 Test Item Value Reference Range Interpretation Comments Sodium Urine (test 44 meq/L code = 2955-3) JYOTI (test code = Reference Range: No JYOTI) NormalsOperator ID - LORIEH [facility] CenterODIUM, RANDOM [id number] 15:53:30 Test Item Value Reference Range Interpretation Comments SODIUM URINE (BEAKER) (test code = 44 meq/L 243) Reference Range: No NormalsOperator ID - LULÚS RENAL [id number] 14:30:53[facility] : 1970 Sex: FBilateral renal ultrasoundHistory provided: Renal insufficiency, hypertensionRight kidney measures 8.7 x 4.0 x 4.3 cm, with a cortical width of 9 mm.Left kidney measures 9.8 x 4.0 x 3.7 cm, with a cortical width of 9 mm.No cystic or solid renal mass. No hydronephrosis. Mildly increased renalechogenicity consistent with intrinsic renal disease.Urinary bladder volume 97 cc.IMPRESSION:No obstructive uropathy. Mildly echogenic kidneys consistent withintrinsic renal disease.Electronically Signed By: Kwasi Mendieta01/29/2023 14:33 CDTWorkstation Name: [id number], 12-[id number] 13:31:19 Test Item Value Reference Range Interpretation Comments VITAMIN D 25-OH (BEATRIZ) (test code 9.5 ng/mL 6.6-49.9 = 2764) Effective 03/06/2017: Reference Range ChangeNew: 6.6-49.9 ng/mL Previous: 13.0- 47.8 ng/mLRecommendedVitamin D Target Range: 30.0-40.0 ng/mLOperator ID - ADMIN Urea Nitrogen, random [id number] 13:08:33 Test Item Value Reference Range Interpretation Comments Urea Nitrogen, Ur 438 mg/dL (test code = 3095-7) JYOTI (test code = Reference Range: No JYOTI) NormalsOperator ID - ADMIN [facility] MedicineUREA NITROGEN, RANDOM [id number] 13:08:33 Test Item Value Reference Range Interpretation Comments UREA NITROGEN URINE (BEAKER) (test 438 mg/dL code = 538) Reference Range: No NormalsOperator ID - ADMINHIV-1 ANTIGEN WITH HIV-1/2 [id number] 12:59:47 Test Item Value Reference Range Interpretation Comments HIV-1 ANTIGEN WITH HIV 1\\T\\2 Nonreactive Nonreactive ANTIBODY (2) (BEAKER) (test code = 2586) [facility] Registration Specialist ID - DSENSONPOCT-GLUCOSE [id number] 12:26:43 Test Item Value Reference Range Interpretation Comments POC-GLUCOSE METER 126 mg/dL 70-110 H : TESTED A T [facility] (BEATRIZ) (test code [address], = 1538) [facility] 77 478: Graves Registration Specialist/Techni lorna ID = [id number] for Jennifer Rodriguez [id number] 07:27:11 Test Item Value Reference Range Interpretation Comments MAGNESIUM (BEAKER) (test code = 2.1 mg/dL 1.5-3.0 627) Graves Registration Specialist ID - [id number] 07:25:09 Test Item Value Reference Range Interpretation Comments PHOSPHORUS (BEAKER) (test code = 4.2 mg/dL 2.5-4.5 604) Graves Registration Specialist ID - DSENSONCOMPREHENSIVE METABOLIC [id number] 02:22:54 Test Item Value Reference Range Interpretation Comments TOTAL PROTEIN 5.2 gm/dL 6.0-8.5 L (BEAKER) (test code = 770) ALBUMIN (BEAKER) 2.4 g/dL 3.5-5.0 L (test code = 1145) ALKALINE 96 U/L 30-115 PHOSPHATASE (BEAKER) (test code = 346) BILIRUBIN TOTAL 0.2 mg/dL 0.1-1.2 (BEAKER) (test code = 377) SODIUM (BEAKER) 143 meq/L 135-148 (test code = 381) POTASSIUM (BEAKER) 3.5 meq/L 3.6-5.5 L (test code = 379) CHLORIDE (BEAKER) 111 meq/L 98-106 H (test code = 382) CO2 (BEAKER) (test 21 meq/L 20-29 code = 355) BLOOD UREA 36 mg/dL 10-26 H NITROGEN (BEAKER) (test code = 354) CREATININE 5.12 mg/dL 0.50-1.20 H (BEAKER) (test code = 358) GLUCOSE RANDOM 135 mg/dL 70-110 H (BEAKER) (test code = 652) CALCIUM (BEAKER) 8.6 mg/dL 8.5-10.5 (test code = 697) AST (SGOT) 8 U/L 5-40 (BEAKER) (test code = 353) ALT (SGPT) 10 U/L 5-50 (BEAKER) (test code = 347) EGFR (BEAKER) 9 Interpretatio n of eGFR (test code = [...] not appl icable for dialysis patien ts Graves Registration Specialist ID - [id number] ID - [id number] ID - [id number] ID - AKXHXLFKR633Hgsindno ID - BOMRIQYML627Mmbrpags ID - [id number] ID - [id number] ID - [id number] ID - OFNCFGLOK186Kxoyakmt ID - MJYWLNXKJ551Zcsveber ID - [id number] ID - XGQSHMCFS425Odzetqka ID - [id number] ID - VPXUMKNGV863Maegccrn ID - IKSVVVRIH505Utkibktf ID -UITOCWWGT475TRWDI [id number] 02:19:35 Test Item Value Reference Range Interpretation Comments TRIGLYCERIDES (BEAKER) (test code = 99 mg/dL 540) CHOLESTEROL (LinekongAKER) (test code = 197 mg/dL 631) HDL CHOLESTEROL (LinekongAKER) (test code 56 mg/dL = 976) LDL CHOLESTEROL CALCULATED ([place]) 121 mg/dL (test code = 633) Triglyceride Reference Range: Low Risk <150 Borderline 150-199 High Risk 200- 499 Very High Risk >=500Cholesterol Reference Range: Low Risk <200 Borderline 200-239 High Risk >240HDL Cholesterol Reference Range: Low Risk >=60 High Risk <40LDL Cholesterol Reference Range: Optimal <100 Near Optimal 100-129 Borderline 130-159 High 160-189 Very High >=190 [facility] Registration Specialist ID - [id number] ID - [id number] ID - [id number] ID - [id number] ID - [id number] ID - [id number] W/PLT COUNT & AUTO [id number] 02:01:01 Test Item Value Reference Range Interpretation Comments WHITE BLOOD CELL COUNT (BEAKER) 7.1 K/ L 4.0-10.0 (test code = 775) RED BLOOD CELL COUNT (BEAKER) 3.09 M/ L 4.00-5.00 L (test code = 761) HEMOGLOBIN (BEAKER) (test code = 9.1 GM/DL 12.0-15.5 L 410) HEMATOCRIT (BEAKER) (test code = 28.1 % 36.0-46.0 L 411) MEAN CORPUSCULAR VOLUME (BEAKER) 91 fL 82-99 (test code = 753) MEAN CORPUSCULAR HEMOGLOBIN 29.4 pg 27.0-33.0 (BEAKER) (test code = 751) MEAN CORPUSCULAR HEMOGLOBIN CONC 32.4 GM/DL 32.0-36.0 (BEAKER) (test code = 752) RED CELL DISTRIBUTION WIDTH 12.4 % 12.0-15.0 (BEAKER) (test code = 412) PLATELET COUNT (BEAKER) (test 155 K/CU MM 150-430 code = 756) MEAN PLATELET VOLUME (BEAKER) 11.0 fL 6.0-11.5 (test code = 754) NUCLEATED RED BLOOD CELLS 0 /100 WBC 0-0 (BEAKER) (test code = 413) NEUTROPHILS RELATIVE PERCENT 57 % (BEAKER) (test code = 429) LYMPHOCYTES RELATIVE PERCENT 32 % (BEAKER) (test code = 430) MONOCYTES RELATIVE PERCENT 6 % (BEAKER) (test code = 431) EOSINOPHILS RELATIVE PERCENT 5 % (BEAKER) (test code = 432) BASOPHILS RELATIVE PERCENT 0 % (BEAKER) (test code = 437) NEUTROPHILS ABSOLUTE COUNT 4.03 K/ L 1.80-8.00 (BEAKER) (test code = 670) LYMPHOCYTES ABSOLUTE COUNT 2.25 K/ L 1.48-4.50 (BEAKER) (test code = 414) MONOCYTES ABSOLUTE COUNT (BEAKER) 0.41 K/ L 0.00-1.30 (test code = 415) EOSINOPHILS ABSOLUTE COUNT 0.35 K/ L 0.00-0.50 (BEAKER) (test code = 416) BASOPHILS ABSOLUTE COUNT (BEAKER) 0.03 K/ L 0.00-0.20 (test code = 417) IMMATURE GRANULOCYTES-RELATIVE 0.10 % 0.00-0.00 H PERCENT (BEAKER) (test code = 2801) PTH, [id number] 22:08:23 Test Item Value Reference Range Interpretation Comments PARATHYROID HORMONE INTACT 453.2 pg/mL 15.0-90.0 H (BEAKER) (test code = 577) Graves Registration Specialist ID - QFAHASIHHGEZKVS3054-84-91 21:33:10 Test Item Value Reference Range Interpretation Comments POTASSIUM (BEAKER) (test code = 3.6 meq/L 3.6-5.5 379) Graves Registration Specialist ID - JUSTINOperator ID - JUSTINOperator ID - JUSTINOperator ID - [place] XR CHEST 1 VIEW PORTABLE / [id number] 21:01:51 [facility] : 1970 Sex: FEXAMINATION: XR CHEST 1 VIEW PORTABLE / BEDSIDE INDICATION: hypertensive emergencyCOMPARISON: CXR 02/20/2022 FINDINGS:LINES/TUBES: None LUNGS: The lungs are well inflated. No focal airspace consolidation.PLEURA: No pleural effusion or pneumothorax.MEDIASTINUM: The cardiomediastinal silhouette appears normal in si ze andshape.BONES/SOFT TISSUES: No acute osseous injury.ABDOMEN: No free air under the diaphragm.IMPRESSION:No acute intrathoracic abnormalityElectronically Signed By: Bill Cabrera01/28/2023 21:03 CDTWorkstation Name: [id number], TIBC, % SAT. (WITHOUT FERRITIN)2023-01-28 20:51:05 Test Item Value Reference Range Interpretation Comments IRON (BEAKER) (test code = 547) 101.0 ug/dL 45.0-170.0 TOTAL IRON BINDING CAPACITY 250 ug/dL 250-550 (BEAKER) (test code = 769) IRON % SATURATION (2) (BEAKER) 40 % 20-55 (test code = 2590) Graves Registration Specialist ID - DSENSONOperator ID - DSENSONHEMOGLOBIN [id number] 20:44:24 Test Item Value Reference Range Interpretation Comments HEMOGLOBIN A1C (BEAKER) (test code = 5.9 % 4.3-6.1 368) Graves Registration Specialist ID - JUSTINCREATININE, RANDOM [id number] 20:19:04 Test Item Value Reference Range Interpretation Comments CREATININE URINE (BEAKER) (test 125.3 mg/dL code = 375) Reference Range: No NormalsOperator ID - DSENSONTROPONIN [id number] 20:17:04 Test Item Value Reference Range Interpretation Comments TROPONIN I (BEAKER) (test code = 397) < ng/mL 0.00-0.15 Troponin I (TnI) levels must be interpreted in the context of the presenting symptoms and the clinical findings. Elevated TnI levels indicate myocardial damage, but are not specific for ischemic heart disease. Elevated TnI levels are seen in patients with other cardiac conditions (including myocarditis and congestive heart failure), and slight TnI elevations occur in patients with other conditions, including sepsis, renal failure, acidosis, acute neurological disease, and persistent tachyarrhythmia.Graves Registration Specialist ID - DSENSONCOMPREHENSIVE METABOLIC [id number] 20:11:07 Test Item Value Reference Range Interpretation Comments TOTAL PROTEIN 8.2 gm/dL 6.0-8.5 Specimen marke dly (BEAKER) (test hemolyzed code = 770) ALBUMIN (BEAKER) 3.2 g/dL 3.5-5.0 L Specimen ma rkedly (test code = 1145) hemolyzed ALKALINE 127 U/L 30-115 H PHOSPHATASE (BEAKER) (test code = 346) BILIRUBIN TOTAL < mg/dL 0.1-1.2 Specimen mar kedly (BEAKER) (test hemolyzed code = 377) SODIUM (BEAKER) 141 meq/L 135-148 (test code = 381) POTASSIUM (BEAKER) 5.9 meq/L 3.6-5.5 H Specimen markedly (test code = 379) hemolyzed CHLORIDE (BEAKER) 109 meq/L 98-106 H (test code = 382) CO2 (BEAKER) (test 20 meq/L 20-29 code = 355) BLOOD UREA 38 mg/dL 10-26 H NITROGEN (BEAKER) (test code = 354) CREATININE 5.41 mg/dL 0.50-1.20 H Specimen marked ly (BEAKER) (test hemolyzed code = 358) GLUCOSE RANDOM 127 mg/dL 70-110 H (BEAKER) (test code = 652) CALCIUM (BEAKER) 8.8 mg/dL 8.5-10.5 (test code = 697) AST (SGOT) 42 U/L 5-40 H Specimen marked ly (BEAKER) (test hemolyzed code = 353) ALT (SGPT) 18 U/L 5-50 Specimen marked ly (BEAKER) (test hemolyzed code = 347) EGFR (BEAKER) 9 Interpretatio n of eGFR (test code = [...] not appl icable for dialysis patien ts Graves Registration Specialist ID - DSENSONOperator ID - DSENSONOperator ID - DSENSONOperator ID - DSENSONOperator ID - DSENSONOperator ID - DSENSONOperator ID - DSENSONOperator ID - DSENSONOperator ID - DSENSONOperator ID - DSENSONOperator ID - DSENSONOperator ID - DSENSONOperator ID - DSENSONOperator ID - DSENSONOperatorID - DSENSONOperator ID - DSENSONSODIUM, RANDOM [id number] 20:11:02 Test Item Value Reference Range Interpretation Comments SODIUM URINE (BEAKER) (test code = 64 meq/L 243) Reference Range: No NormalsOperator ID - [id number] 20:09:40 Test Item Value Reference Range Interpretation Comments MAGNESIUM (BEAKER) 2.2 mg/dL 1.5-3.0 Specimen markedly (test code = 627) hemolyzed [facility] Registration Specialist ID - DSENSONOperator ID - DSENSONOperator ID - DSENSONOperator ID - DSENSONLIPID [id number] 20:09:19 Test Item Value Reference Range Interpretation Comments TRIGLYCERIDES (BEAKER) 137 mg/dL Speci men markedly (test code = 540) hemolyzed CHOLESTEROL (BEAKER) 270 mg/dL Specime n markedly (test code = 631) hemolyzed HDL CHOLESTEROL (BEAKER) 74 mg/dL (test code = 976) LDL CHOLESTEROL 169 mg/dL CALCULATED (BEAKER) (test code = 633) Triglyceride Reference Range: Low Risk <150 Borderline 150-199 High Risk 200- 499 Very High Risk >=500Cholesterol Reference Range: Low Risk <200 Borderline 200-239 High Risk >240HDL Cholesterol Reference Range: Low Risk >=60 High Risk <40LDL Cholesterol Reference Range: Optimal <100 Near Optimal 100-129 Borderline 130-159 High 160-189 Very High >=190 Graves Registration Specialist ID - DSENSONOperator ID - DSENSONOperator ID - [id number] 20:06:23 Test Item Value Reference Range Interpretation Comments PHOSPHORUS (BEAKER) 4.4 mg/dL 2.5-4.5 Specimen markedly (test code = 604) hemolyzed Graves Registration Specialist ID - DSENSONPROTHROMBIN TIME/[id number] 20:01:00 Test Item Value Reference Range Interpretation Comments PROTIME (BEAKER) 10.1 seconds 9.3-12.0 Final Infor mation (test code = 759) (Auto Outp ut) INR (BEAKER) (test 0.94 See_Comment Final Inf ormation code = 370) (Auto Output) [Automated mess age] The system [employer] generated this result transmitted ref erence range: <=5.90. The reference range was not used to int erpret this result as normal/abnormal . RECOMMENDED COUMADIN/WARFARIN INR THERAPY RANGESSTANDARD DOSE: 2.0 - 3.0 Includes: PROPHYLAXIS for venous thrombosis, systemic embolization; TREATMENT for venous thrombosis and/or pulmonary embolus.HIGH RISK: Target INR is 2.5-3.5 for patients with mechanical heart valves.CALCIUM, [id number] 19:44:43 Test Item Value Reference Range Interpretation Comments CALCIUM IONIZED (BEAKER) (test 0.89 mmol/L 1.12-1.27 L code = 698) PH, BLOOD (BEAKER) (test code = 7.42 1810) POC-Glucose [id number] 10:51:30 Test Item Value Reference Range Interpretation Comments POC-Glucose Meter (test 114 mg/dL 70-110 H : TE STED AT [facility] code = 1538) [address] [place] [address], [facility] 30: Graves Registration Specialist/Techni lorna ID = [id number] for STEPHEN -Michelet, [place]RI[place] Lab Interpretation (test Abnormal code = 31195-6) [facility] MedicinePO-Glucose [id number] 10:51:30 Test Item Value Reference Range Interpretation Comments POC-Glucose Meter (test 114 mg/dL 70-110 H : TE STED AT [facility] code = 1538) [address] [place] [address], [facility] 30: Graves Registration Specialist/Techni lorna ID = [id number] for STEPHEN -Michelet, [place] Lab Interpretation (test Abnormal code = 76476-1) [facility] MedicinePOC-Glucose [id number] 10:51:30 Test Item Value Reference Range Interpretation Comments POC-Glucose Meter (test 114 mg/dL 70-110 H : TE STED AT [facility] code = 1538) [address] [place] [address], [facility] 30: Graves Registration Specialist/Techni lorna ID = [id number] for STEPHEN -Michelet, [place] Lab Interpretation (test Abnormal code = 29093-2) [facility] MedicinePOC-Glucose [id number] 10:51:30 Test Item Value Reference Range Interpretation Comments POC-Glucose Meter (test 114 mg/dL 70-110 H : TE STED AT [facility] code = 1538) [address] [place] [address], [facility] 30: Graves Registration Specialist/Techni lorna ID = [id number] for STEPHEN -Michelet, [place] Lab Interpretation (test Abnormal code = 12815-1) [facility] MedicinePOC-Glucose [id number] 10:51:30 Test Item Value Reference Range Interpretation Comments POC-Glucose Meter (test 114 mg/dL 70-110 H : TE STED AT [facility] code = 1538) [address] [facility], 770 30: Graves Registration Specialist/Techni lorna ID = [id number] for STEPHEN DAGMAR Cullen Lab Interpretation (test Abnormal code = 05199-1) [facility] MedicinePOCT-GLUCOSE [id number] 10:51:30 Test Item Value Reference Range Interpretation Comments POC-GLUCOSE METER 114 mg/dL 70-110 H : TESTED A T [facility] 67[address] (BEAKER) (test code [facility], = 1538) [address]: Graves Registration Specialist/Techni lorna ID = [id number] for LYNNBRANDT Root DOUGLAS POCT-GLUCOSE [id number] 08:00:51 Test Item Value Reference Range Interpretation Comments POC-GLUCOSE METER 108 mg/dL 70-110 : TESTED A T [facility] [address] (BEAKER) (test code [facility], = 1538) [address]: Graves Registration Specialist/Techni lorna ID = [id number] for TYE SwannBRANDT Tafoya DOUGLAS BASIC METABOLIC [id number] 04:58:14 Test Item Value Reference Range Interpretation [...] not appl icable for dialysis patien ts Graves Registration Specialist ID - PIAYA LPOCT-GLUCOSE [id number] 23:40:04 Test Item Value Reference Range Interpretation Comments POC-GLUCOSE METER 122 mg/dL 70-110 H : TESTED A T [facility] 67[address] (BEAKER) (test code = [facility], 1538) [address]: Graves Registration Specialist/Techni lorna ID = [id number] for RE BRAD MEDRANO POCT-GLUCOSE [id number] 16:33:39 Test Item Value Reference Range Interpretation Comments POC-GLUCOSE METER 85 mg/dL 70-110 : TESTED A T [facility] 67[address] (BEAKER) (test code = [facility], 1538) [address]: Graves Registration Specialist/Techni lorna ID = [id number] for LEWI S -Michelet, LATAND DOUGLAS BLOOD [id number] 16:00:53 Test Item Value Reference Range Interpretation Comments CULTURE (BEAKER) (test No growth in 5 days code = 1095) BLOOD [id number] 15:00:51 Test Item Value Reference Range Interpretation Comments CULTURE (BEAKER) (test No growth in 5 days code = 1095) POCT-GLUCOSE [id number] 11:40:47 Test Item Value Reference Range Interpretation Comments POC-GLUCOSE METER 235 mg/dL 70-110 H : TESTED A T [facility] 67[address] (BEAKER) (test code [facility], = 1538) [address]: Graves Registration Specialist/Techni lorna ID = [id number] for LEWI S -Michelet, LATAND DOUGLAS POCT-GLUCOSE [id number] 07:50:40 Test Item Value Reference Range Interpretation Comments POC-GLUCOSE METER 211 mg/dL 70-110 H : TESTED A T [facility] 6720 (BEAKER) (test code [facility], = 1538) [address]: Graves Registration Specialist/Techni lorna ID = [id number] for LEWI S -Michelet, LATAND DOUGLAS BASIC METABOLIC [id number] 05:05:15 Test Item Value Reference Range Interpretation [...] not appl icable for dialysis patien ts Graves Registration Specialist ID - ALONZO WPOCT-GLUCOSE [id number] 00:28:41 Test Item Value Reference Range Interpretation Comments POC-GLUCOSE METER 344 mg/dL 70-110 H : TESTED A T [facility] [address] (BEAKER) (test code = [place], 1538) [address]: Graves Registration Specialist/Techni lorna ID = [id number] for Elva Tsang MR, SPINE, CERVICAL, [id number] 21:04:00Unlisted Reason for Exam - Click Yes and Enter Reason Below->YesUnlisted Reason for Exam->questionable C3 marrow lesion, [facility] 1970 Sex: FFINAL [...] procedures is suggested.Reason for exam:->FB chestReason for exam:->BATCH DUMPER to r/o FB. Please see CXR 02/16Should this be performed at the bedside?->Yes [facility] 1970 Sex: FFINAL [...] over the right upper quadrant. Signed: Pauly Rodriguez MDReport Verified Date/Time: 02/20/2022 16:24:33 POCT-GLUCOSE [id number] 13:02:48 Test Item Value Reference Range Interpretation Comments POC-GLUCOSE METER 200 mg/dL 70-110 H : TESTED A T [facility] 6720 (BEAKER) (test [facility] = 1538) [id number]: Graves Registration Specialist/Techni lorna ID = [id number] for BRANDT Rodriguez DOUGLAS [id number] 07:26:31 Test Item Value Reference Range Interpretation Comments MAGNESIUM (BEAKER) (test code = 1.9 mg/dL 1.6-2.6 627) Graves Registration Specialist ID - [id number] 07:26:31 Test Item Value Reference Range Interpretation Comments PHOSPHORUS (BEAKER) (test code = 3.1 mg/dL 2.3-4.7 604) Graves Registration Specialist ID - BSCOMPREHENSIVE METABOLIC [id number] 07:26:30 Test Item Value Reference Range Interpretation [...] not appl icable for dialysis patien ts Graves Registration Specialist ID - BSCBC W/PLT COUNT & AUTO [id number] 06:55:28 Test Item Value Reference Range Interpretation [...] PERCENT (BEAKER) (test code = 2801) POCT-GLUCOSE [id number] 18:22:38 Test Item Value Reference Range Interpretation Comments POC-GLUCOSE METER 159 mg/dL 70-110 H : TESTED A T [facility] 6720 ([facility]) (test code = [facility], 1538) 06171: Graves Registration Specialist/Techni lorna ID = [id number] for GENI LARASUSIIE POCT-GLUCOSE [id number] 16:27:46 Test Item Value Reference Range Interpretation Comments POC-GLUCOSE METER 165 mg/dL 70-110 H : TESTED A T [facility] ([facility]) (test code [facility], = 1538) 55081: Graves Registration Specialist/Techni lorna ID = [id number] for Dianna sage (contract), Cori nubia VITAMIN D, [id number] 14:54:47 Test Item Value Reference Range Interpretation Comments VITAMIN D 25-OH (AKER) (test code 8.3 ng/mL 6.6-49.9 = 2764) Effective 03/06/2017: Reference Range ChangeNew: 6.6-49.9 ng/mL Previous: 13.0- 47.8 ng/mLRecommendedVitamin D Target Range: 30.0-40.0 ng/mLOperator ID - CONNIE DPOCT-GLUCOSE [id number] 12:56:46 Test Item Value Reference Range Interpretation Comments POC-GLUCOSE METER 199 mg/dL 70-110 H : TESTED A T [facility] 6720 (BEAKER) (test code [facility], = 1538) 46126: Graves Registration Specialist/Techni lorna ID = [id number] for Dianna sage (contract), Cori nubia POCT-GLUCOSE [id number] 08:25:06 Test Item Value Reference Range Interpretation Comments POC-GLUCOSE METER 109 mg/dL 70-110 : TESTED A T [facility] 6720 (BEAKER) ([facility] 15[facility] 40538: Graves Registration Specialist/Techni lorna ID = [id number] for Dianna sage (contract), Cori nubia PTH, [id number] 03:05:59 Test Item Value Reference Range Interpretation Comments PARATHYROID HORMONE INTACT 176.0 pg/mL 8.5-72.5 H (BEAKER) (test code = 577) Graves Registration Specialist ID - PIJOSTIN [id number] 03:01:19 Test Item Value Reference Range Interpretation Comments MAGNESIUM (BEAKER) (test code = 2.0 mg/dL 1.6-2.6 627) Graves Registration Specialist ID - LENY [id number] 03:01:19 Test Item Value Reference Range Interpretation Comments PHOSPHORUS (BEAKER) (test code = 3.3 mg/dL 2.3-4.7 604) Graves Registration Specialist ID - LENY LCOMPREHENSIVE METABOLIC [id number] 03:01:18 Test Item Value Reference Range Interpretation [...] not appl icable for dialysis patien ts Graves Registration Specialist ID - PIAYA LCBC W/PLT COUNT & AUTO [id number] 02:49:55 Test Item Value Reference Range Interpretation [...] PERCENT (BEAKER) (test code = 2801) POCT-GLUCOSE [id number] 22:13:25 Test Item Value Reference Range Interpretation Comments POC-GLUCOSE METER 126 mg/dL 70-110 H : TESTED A T [facility] 6720 (BEAKER) (test code = [facility], 153) 52728: Graves Registration Specialist/Techni lorna ID = [id number] for Nm eribe, Glory POCT-GLUCOSE [id number] 17:43:00 Test Item Value Reference Range Interpretation Comments POC-GLUCOSE METER 182 mg/dL 70-110 H : TESTED A T [facility] 6720 (BEAKER) (test code = [facility], 153) 56388: Graves Registration Specialist/Techni lorna ID = [id number] for Ok oroafor, [place] POCT-GLUCOSE [id number] 13:13:29 Test Item Value Reference Range Interpretation Comments POC-GLUCOSE METER 129 mg/dL 70-110 H : TESTED A T [facility] 6720 (BEAKER) (test code = [facility], 1538) 27632: Graves Registration Specialist/Techni lorna ID = [id number] for Sendy Schroederso 2D Echo W/Doppler(CW/PW/Color)2022-02-18 12:43:42Ejection [facility]LEH [facility] W[facility]Do[facility](CW/PW/Color)2022-02-18 12:43:42Ejection FractionSLEH ECHO [facility] Echo W/Doppler(CW/PW/Color) 2022-02-18 12:43:42Ejection FractionSLEH ECHO [facility] Echo W/Doppler(CW/PW/Color)2022-02-18 12:43:42Ejection FractionSLEH ECHO [facility] Echo W/Doppler(CW/PW/Color)2022-02-18 12:43:42Ejection FractionSLEH ECHO [facility] W/Doppler(CW/PW/Color) 2022-02-18 12:43:42Ejection FractionSLEH ECHO HEARTLAB [facility] [id number] 12:11:08 Test Item Value Reference Range Interpretation Comments Result (test code = 6463-4) No MRSA isolated [facility] [id number] 12:11:08 Test Item Value Reference Range Interpretation Comments Result (test code = 6463-4) No MRSA isolated [facility] [id number] 12:11:08 Test Item Value Reference Range Interpretation Comments Result (test code = 6463-4) No MRSA isolated [facility] [id number] 12:11:08 Test Item Value Reference Range Interpretation Comments Result (test code = 6463-4) No MRSA isolated [facility] [id number] 12:11:08 Test Item Value Reference Range Interpretation Comments Result (test code = 6463-4) No MRSA isolated [facility] [id number] 12:11:08 Test Item Value Reference Range Interpretation Comments Result (test code = 6463-4) No MRSA isolated [facility] Medicine[facility] [id number] 12:11:08 Test Item Value Reference Range Interpretation Comments CULTURE (BEATRIZ) (test code No MRSA isolated = 1095) POCT-GLUCOSE [id number] 09:36:58 Test Item Value Reference Range Interpretation Comments POC-GLUCOSE METER 148 mg/dL 70-110 H : TESTED A T [facility] 6720 (BEATRIZ) (test code = [facility] [place], 1538) 32891: Graves Registration Specialist/Techni lorna ID = [id number] for Ok oroafor, [place] U/S, RENAL, [id number] 09:06:00Reason for exam:->[facility] 1970 Sex: FFINAL [...] of renal parenchymal disease. Signed: Christo Brunner Verified Date/Time: 02/18/2022 09:06:30 Reading Location: [address] Body Reading Room POCT-GLUCOSE [id number] 05:45:20 Test Item Value Reference Range Interpretation Comments POC-GLUCOSE METER 124 mg/dL 70-110 H : TESTED Sharon T [facility] 6720 (BEAKER) (test code = [facility] [place], 1538) 00710: Graves Registration Specialist/Techni lorna ID = [id number] for Lisa Aj COMPREHENSIVE METABOLIC [id number] 05:39:23 Test Item Value Reference Range Interpretation [...] glom erular filtration rate . Estimated GFR i s not applicable for dialysis patients Graves Registration Specialist ID Shree MICHELE [id number] 04:49:24 Test Item Value Reference Range Interpretation Comments MAGNESIUM (BEAKER) (test code = 2.0 mg/dL 1.6-2.6 627) Graves Registration Specialist ID - LENY [id number] 04:49:24 Test Item Value Reference Range Interpretation Comments PHOSPHORUS (BEAKER) (test code = 3.1 mg/dL 2.3-4.7 604) Graves Registration Specialist ID Shree MICHELE LCBC W/PLT COUNT & AUTO [id number] 04:26:28 Test Item Value Reference Range Interpretation [...] PERCENT (BEAKER) (test code = 2801) POCT-GLUCOSE [id number] 23:04:45 Test Item Value Reference Range Interpretation Comments POC-GLUCOSE METER 165 mg/dL 70-110 H : TESTED A T [facility] 6720 (BEAKER) (test code = [facility], 1538) 04574: Graves Registration Specialist/Techni lorna ID = [id number] for Christopher Wolff T4, [id number] 18:45:38 Test Item Value Reference Range Interpretation Comments FREE T4 (BEAKER) (test code = 655) 1.07 ng/dL 0.70-1.48 Graves Registration Specialist ID - LINDEN MPOCT-GLUCOSE [id number] 18:38:50 Test Item Value Reference Range Interpretation Comments POC-GLUCOSE METER 177 mg/dL 70-110 H : TESTED A T [facility] 67[facility] ([facility]) (test code = [facility], 1538) 21366: Graves Registration Specialist/Techni lorna ID = [id number] for Ok oroafor, [place] MR, BRAIN, WITHOUT [id number] 18:25:00Hypertensive urgency, r/o PRES Also febrile, r/o meningitis/encephalitis Unlisted Reason for Exam - Click Yes and Enter Reason Below->No Does the patient have an implanted electronic device?->[facility] : 1970 Sex: FFINAL REPORT MR, BRAIN, WITHOUT CONTRAST INDICATION: Meningitis/LAYOUT DESIGNER infection suspected TECHNIQUE: Multiplanar, multisequence MR imaging [...] for primary malignancy is suggested. Signed: Elizabeth Reyes Verified Date/Time: 02/17/2022 18:25:45 TSH/FREE T4 IF [id number] 18:06:03 Test Item Value Reference Range Interpretation Comments THYROID STIMULATING HORMONE 0.234 uIU/mL 0.350-4.940 L (BEAKER) (test code = 772) Graves Registration Specialist ID - LINDEN MPOCT-GLUCOSE [id number] 16:40:45 Test Item Value Reference Range Interpretation Comments POC-GLUCOSE METER 160 mg/dL 70-110 H : TESTED A T [facility] 6720 (BEAKER) (test code [facility], = 1538) 61274: Graves Registration Specialist/Techni lorna ID = [id number] for Tori reyes (contract), Dinorah harrell POCT-GLUCOSE [id number] 15:26:11 Test Item Value Reference Range Interpretation Comments POC-GLUCOSE METER 76 mg/dL 70-110 : TESTED A T [facility] 6720 (BEAKER) (test code = [facility], 1538) 73042: Graves Registration Specialist/Techni lorna ID = [id number] for Connor Roque POCT-GLUCOSE [id number] 14:21:45 Test Item Value Reference Range Interpretation Comments POC-GLUCOSE METER 108 mg/dL 70-110 : TESTED A T [facility] 6720 (BEAKER) (test code [facility], = 1538) 99734: Graves Registration Specialist/Techni lorna ID = [id number] for Tori reyes (contract), Nne ka POCT-GLUCOSE [id number] 13:29:26 Test Item Value Reference Range Interpretation Comments POC-GLUCOSE METER 73 mg/dL 70-110 : TESTED A T [facility] 6720 (BEAKER) (test code = [facility], 1538) 40543: Graves Registration Specialist/Techni lorna ID = [id number] for Tori reyes (contract), Nne ka BASIC METABOLIC [id number] 13:27:42 Test Item Value Reference Range Interpretation [...] not appl icable for dialysis patien ts Graves Registration Specialist ID - LINDEN [id number] 12:16:33 Test Item Value Reference Range Interpretation Comments MAGNESIUM (BEAKER) (test code = 1.8 mg/dL 1.6-2.6 627) Graves Registration Specialist ID - LINDEN [id number] 12:16:33 Test Item Value Reference Range Interpretation Comments PHOSPHORUS (BEAKER) (test code = 2.2 mg/dL 2.3-4.7 L 604) Graves Registration Specialist ID - LINDEN MPOCT-GLUCOSE [id number] 11:47:53 Test Item Value Reference Range Interpretation Comments POC-GLUCOSE METER 108 mg/dL 70-110 : TESTED A T [facility] 6720 ([employer]) (test code [facility], = 1538) 57893: Graves Registration Specialist/Techni lorna ID = [id number] for Tori uomje (contract), Nne ka HEMOGLOBIN [id number] 10:38:53 Test Item Value Reference Range Interpretation Comments HEMOGLOBIN A1C 10.9 % See_Comment H [Automated m essage] ELECTROPHORESIS ([employer]) The system which (test code = 3811) generated this result transmitted ref erence range: <=5.6%. The reference range was not used to int erpret this result as normal/abnormal . "The A1c is measured using a NGSP-certified method. HbA1c value equal to or greater than 6.5% as thediagnosis cutoff for diabetes. An HbA1c value of 5.7- 6.4% indicates increased risk for diabetes (prediabetes)."Graves Registration Specialist ID - ADMPOCT- GLUCOSE [id number] 10:16:09 Test Item Value Reference Range Interpretation Comments POC-GLUCOSE METER 160 mg/dL 70-110 H : TESTED A T [facility] 6720 ([employer]) (test code [facility], = 1538) 15391: Graves Registration Specialist/Techni lorna ID = [id number] for Awfrancia uomje (contract), Nne ka BASIC METABOLIC [id number] 10:02:11 Test Item Value Reference Range Interpretation [...] not appl icable for dialysis patien ts Graves Registration Specialist ID - LINDEN MPOCT-GLUCOSE [id number] 09:12:51 Test Item Value Reference Range Interpretation Comments POC-GLUCOSE METER 203 mg/dL 70-110 H : TESTED A T [facility] 6720 (BEAKER) (test code = [facility], 1538) 00020: Graves Registration Specialist/Techni lorna ID = [id number] for Ok oroafor, [place] POCT-GLUCOSE [id number] 08:24:37 Test Item Value Reference Range Interpretation Comments POC-GLUCOSE METER 185 mg/dL 70-110 H : TESTED A T [facility] 6720 (BEAKER) (test code = [facility] [place] [facility], 1538) 24880: Graves Registration Specialist/Techni lorna ID = [id number] for Nathalia Schroeder BASIC METABOLIC [id number] 06:50:10 Test Item Value Reference Range Interpretation [...] not appl icable for dialysis patien ts Graves Registration Specialist ID - LINDEN MPOCT-GLUCOSE [id number] 05:33:55 Test Item Value Reference Range Interpretation Comments POC-GLUCOSE METER 166 mg/dL 70-110 H : TESTED A T [facility] 6720 (BEAKER) (test code [facility], = 1538) 04166: Graves Registration Specialist/Techni loran ID = [id number] for KARUNA NARAYANAN CBC W/PLT COUNT & AUTO [id number] 04:40:04 Test Item Value Reference Range Interpretation [...] (BEAKER) (test code = 2801) COMPREHENSIVE METABOLIC [id number] 04:25:06 Test Item Value Reference Range Interpretation [...] not appl icable for dialysis patien ts Graves Registration Specialist ID - LINDEN [id number] 04:18:46 Test Item Value Reference Range Interpretation Comments PHOSPHORUS (BEAKER) (test code = 1.8 mg/dL 2.3-4.7 L 604) Graves Registration Specialist ID - LINDEN [id number] 04:18:45 Test Item Value Reference Range Interpretation Comments MAGNESIUM (BEAKER) (test code = 1.3 mg/dL 1.6-2.6 L 627) Graves Registration Specialist ID - LINDEN MPOCT-GLUCOSE [id number] 03:06:33 Test Item Value Reference Range Interpretation Comments POC-GLUCOSE METER 187 mg/dL 70-110 H : TESTED A T [facility] 6720 (BEAKER) (test code = [facility] [place] [facility], 1538) 07150: Graves Registration Specialist/Techni lorna ID = [id number] for Al Annemarie reyna BASIC METABOLIC [id number] 02:20:38 Test Item Value Reference Range Interpretation [...] not appl icable for dialysis patien ts Graves Registration Specialist ID - LINDEN MPOCT-GLUCOSE [id number] 01:41:42 Test Item Value Reference Range Interpretation Comments POC-GLUCOSE METER 191 mg/dL 70-110 H : TESTED A T [facility] 6720 ([facility]) (test code [facility], = 1538) 89007: Graves Registration Specialist/Techni lorna ID = [id number] for KARUNA NARAYANAN POCT-GLUCOSE [id number] 00:11:09 Test Item Value Reference Range Interpretation Comments POC-GLUCOSE METER 147 mg/dL 70-110 H : TESTED A T [facility] 6720 ([facility]) (test code = [facility], 1538) 65185: Graves Registration Specialist/Techni lorna ID = [id number] for Al i, Annemarie RAD, ABDOMEN/KUB, 1 VIEW [id number] 22:52:00Reason for exam:->NGT placementShould this be performed at the bedside?->Yes [facility] 1970 Sex: FFINAL REPORT Supine abdomen 02/16/2022 HISTORY: NG tube placement. IMPRESSION: NG tube in place with the tip projecting over the distal stomach or proximal duodenum. There is a linear radiodensity projecting over the lower esophagus most likely external to the patient. Signed: Elva Issa Verified Date/Time: 02/16/2022 22:52:54 Electronically signed by: ELVA ISSA MD on02/16/2022 10:52 PMPOCT-GLUCOSE [id number] 22:29:37 Test Item Value Reference Range Interpretation Comments POC-GLUCOSE METER 144 mg/dL 70-110 H : TESTED A T [facility] 6720 (BEATRIZ) (test code = [facility], 1538) 99033: Graves Registration Specialist/Techni lorna ID = [id number] for Annemarie Matias i RAD, CHEST, 1 VIEW, NON [id number] 22:12:00Reason for exam:->eval lung fieldsShould this be performed at the bedside?->Yes [facility] 1970 Sex: FFINAL REPORT PORTABLE AP CHEST ORDERED AT 02/16/2022 9:37 PM HISTORY: Lung barragan evaluation. COMPARISON: Chest radiograph 10 hours prior. IMPRESSION: NG tube is in place with the tip below the diaphragm. There is a linear radiodensity projecting over the LEFT lower chest that is most likelyexternal to the patient but correlation with any recent invasive procedures is suggested. No evidence of consolidation, effusion or pneumothorax. Signed: Elva Issa [facility] Verified Date/Time: 02/16/2022 22:12:53 Blood gas, [id number] 21:52:37 Test Item Value Reference Range Interpretation Comments pH, Arterial (test code 7.37 7.35-7.45 = 2744-1) pCO2, Arterial (test 53 See_Comment H [Autom ated message] code = 2019-8) The system [employer] generated this result transmit amina reference range : 35 - 45 mm Hg. The reference range was not used to interpret this result as normal/abnormal . pO2, Arterial (test 120 See_Comment H [Automa amina message] code = 2703-7) The system [employer] generated this result transmit amina reference range [...] 32 Lab Interpretation Abnormal (test code = 14551-5) [facility], [id number] 21:52:37 Test Item Value Reference Range Interpretation Comments pH, Arterial (test code 7.37 7.35-7.45 = 2744-1) pCO2, Arterial (test 53 See_Comment H [Autom ated message] code = 2018-12) The system [employer] generated this result transmit amina reference range : 35 - 45 mm Hg. The reference range was not used to interpret this result as normal/abnormal . pO2, Arterial (test 120 See_Comment H [Automa amina message] code = 2703-7) The system [employer] generated this result transmit amina reference range [...] 32 Lab Interpretation Abnormal (test code = 46700-6) [facility], [id number] 21:52:37 Test Item Value Reference Range Interpretation Comments pH, Arterial (test code 7.37 7.35-7.45 = 2744-1) pCO2, Arterial (test 53 See_Comment H [Autom ated message] code = 2019-) The system [employer] generated this result transmit amina reference range : 35 - 45 mm Hg. The reference range was not used to interpret this result as normal/abnormal . pO2, Arterial (test 120 See_Comment H [Automa amina message] code = 2703-7) The system [employer] generated this result transmit amina reference range [...] 32 Lab Interpretation Abnormal (test code = 65804-6) [facility], [id number] 21:52:37 Test Item Value Reference Range Interpretation Comments pH, Arterial (test code 7.37 7.35-7.45 = 2744-1) pCO2, Arterial (test 53 See_Comment H [Autom ated message] code = 2019-8) The system [employer] generated this result transmit amina reference range : 35 - 45 mm Hg. The reference range was not used to interpret this result as normal/abnormal . pO2, Arterial (test 120 See_Comment H [Automa amina message] code = 2703-7) The system [employer] generated this result transmit amina reference range [...] 32 Lab Interpretation Abnormal (test code = 41661-0) [facility], [id number] 21:52:37 Test Item Value Reference Range Interpretation Comments pH, Arterial (test code 7.37 7.35-7.45 = 2744-1) pCO2, Arterial (test 53 See_Comment H [Autom ated message] code = 2019-8) The system [employer] generated this result transmit amina reference range : 35 - 45 mm Hg. The reference range was not used to interpret this result as normal/abnormal . pO2, Arterial (test 120 See_Comment H [Automa amina message] code = 2703-7) The system [employer] generated this result transmit amina reference range [...] 32.0 Lab Interpretation Abnormal (test code = 79571-3) [facility], [id number] 21:52:37 Test Item Value Reference Range Interpretation Comments pH, Arterial (test code 7.37 7.35-7.45 = 2744-1) pCO2, Arterial (test 53 See_Comment H [Autom ated message] code = 2019) The system [employer] generated this result transmit amina reference range : 35 - 45 mm Hg. The reference range was not used to interpret this result as normal/abnormal . pO2, Arterial (test 120 See_Comment H [Automa amina message] code = 2703-7) The system [employer] generated this result transmit amina reference range [...] 32.0 Lab Interpretation Abnormal (test code = 42985-3) [facility] MedicineBLOOD GAS, [id number] 21:52:37 Test Item Value Reference Range Interpretation [...] (BEAKER) (test code = 1819) 32.0 KETONE, [id number] 21:38:46 Test Item Value Reference Range Interpretation Comments KETONES, BLOOD (BEAKER) (test code 0.9 mmol/L <0.4 H = 1103) POCT-GLUCOSE [id number] 21:19:53 Test Item Value Reference Range Interpretation Comments POC-GLUCOSE METER 173 mg/dL 70-110 H : TESTED A T [facility] 6720 (BEAKER) (test code = [place], 1538) 96145: Graves Registration Specialist/Techni lorna ID = [id number] for Annemarie Matias i SARS-CoV2/RT-PCR (Symptomatic ONLY)2022-02-16 21:03:01 Test Item Value Reference Range Interpretation Comments SARS-COV2/RT-PCR Negative Negative (test code = 53766-9) SARS-COV-2 PERFORMING [facility] (test code = 61390-8) JYOTI (test code = JYOTI) Endogenous inhibition [...] of the Act. Fact Sheet for Healthcare Providers:https://www.[employer]/sites/default/f colt/product/documents/F act_Sheet_HC_Providers_L exs_UQQF-PcS-7.pdf Fact Sheet for Healthcare Patients:https://www.[employer]/sites/default/fi les/product/documents/Fa ct_Sheet_Patients_Lyra_S ARS-CoV-2.pdf Performing Laboratory:[facility], [place] [address] [place], [place] [address]ARS-CoV2/RT-PCR (Symptomatic ONLY)2022-02-16 21:03:01 Test Item Value Reference Range Interpretation Comments SARS-COV2/RT-PCR Negative Negative (test code = 50310-9) SARS-COV-2 PERFORMING [facility] (test code = 55769-4) JYOTI (test code = JYOTI) Endogenous inhibition [...] of the Act. Fact Sheet for Healthcare Providers:https://www.[employer]/sites/default/f colt/product/documents/F act_Sheet_HC_Providers_L uil_EKTI-XgJ-3.pdf Fact Sheet for Healthcare Patients:https://www.[employer]/sites/default/fi les/product/documents/Fa ct_Sheet_Patients_Lyra_S ARS-CoV-2.pdf Performing Laboratory:[facility] [place] [address] [facility] (Symptomatic ONLY)2022-02-16 21:03:01 Test Item Value Reference Range Interpretation Comments SARS-COV2/RT-PCR Negative Negative (test code = 17318-8) SARS-COV-2 PERFORMING [facility] (test code = 35323-8) JYOTI (test code = JYOTI) Endogenous inhibition [...] of the Act. Fact Sheet for Healthcare Providers:https://www.[employer]/sites/default/f colt/product/documents/F act_Sheet_HC_Providers_L gdo_IMNI-YgY-2.pdf Fact Sheet for Healthcare Patients:https://www.[employer]/sites/default/fi les/product/documents/Fa ct_Sheet_Patients_Lyra_S ARS-CoV-2.pdf Performing Laboratory:[address]CoV2/RT-PCR (Symptomatic ONLY)2022-02-16 21:03:01 Test Item Value Reference Range Interpretation Comments SARS-COV2/RT-PCR Negative Negative (test code = 48488-3) SARS-COV-2 PERFORMING [facility] (test code = 02915-4) JYOTI (test code = JYOTI) Endogenous inhibition [...] of the Act. Fact Sheet for Healthcare Providers:https://www.[employer].beqom/sites/default/f colt/product/documents/F act_Sheet_HC_Providers_L qjt_XPFF-FpM-7.pdf Fact Sheet for Healthcare Patients:https://www.[employer].beqom/sites/default/fi les/product/documents/Fa ct_Sheet_Patients_Lyra_S ARS-CoV-2.pdf Performing Laboratory:[facility] [place] [address].[address]ARS-CoV2/RT-PCR (Symptomatic ONLY)2022-02-16 21:03:01 Test Item Value Reference Range Interpretation Comments SARS-COV2/RT-PCR Negative Negative (test code = 58061-3) SARS-COV-2 PERFORMING [facility] (test code = 94231-1) JYOTI (test code = JYOTI) Endogenous inhibition [...] of the Act. Fact Sheet for Healthcare Providers:https://www.WIDIP/sites/default/f colt/product/documents/F act_Sheet_HC_Providers_L kxg_YPLF-MyH-4.pdf Fact Sheet for Healthcare Patients:https://www.ClearGist/sites/default/fi les/product/documents/Fa ct_Sheet_Patients_Lyra_S ARS-CoV-2.pdf Performing Laboratory:[facility], [place] [id number] [place], [place] [address]ARS-CoV2/RT-PCR (Symptomatic ONLY)2022-02-16 21:03:01 Test Item Value Reference Range Interpretation Comments SARS-COV2/RT-PCR Negative Negative (test code = 79951-1) SARS-COV-2 PERFORMING [facility] (test code = 30130-0) JYOTI (test code = JYOTI) Endogenous inhibition [...] of the Act. Fact Sheet for Healthcare Providers:https://www.WIDIP/sites/default/f colt/product/documents/F act_Sheet_HC_Providers_L shz_ONNN-KvU-0.pdf Fact Sheet for Healthcare Patients:https://www.ClearGist/sites/default/fi les/product/documents/Fa ct_Sheet_Patients_Lyra_S ARS-CoV-2.pdf Performing Laboratory:[facility] [place] [address] [facility] ([facility])2022-02-16 21:03:01 Test Item Value Reference Range Interpretation Comments SARS-COV2/RT-PCR (test code = Negative Negative 2024892) SARS-COV-2 PERFORMING LAB (test [facility] code = 0919993) Endogenous inhibition of PCR was detected in [...] of the Act.Fact Sheet for Healthcare Providers:https:// www.Avista/sites/default/files/product/documents/Fact_Sheet_HC_Providers_Lyr x_XKMQ-NeB-1.pdfFactSheet for Healthcare Patients:https://www.Avista/sites/default/files/product/documents/Fact_Sheet _Djfvoldx_Dfzh_BMKD-ReK-3.pdfPerforming Laboratory:[facility], [place] [address]CHQNQ METABOLIC [id number] 20:51:36 Test Item Value Reference Range Interpretation [...] not appl icable for dialysis patien ts [facility] Registration Specialist ID - BSPOCT-GLUCOSE [id number] 20:33:13 Test Item Value Reference Range Interpretation Comments POC-GLUCOSE METER 127 mg/dL 70-110 H : TESTED A T [facility] 6720 (BEAKER) (test code = [facility], 1538) [address]: Graves Registration Specialist/Techni lorna ID = [id number] for Al i, Annemarie POCT-GLUCOSE [id number] 18:17:32 Test Item Value Reference Range Interpretation Comments POC-GLUCOSE METER 210 mg/dL 70-110 H : TESTED A T [facility] 6720 (AKER) (test code = [facility], 1538) 967[address]: Graves Registration Specialist/Techni lorna ID = [id number] for Ok oroafor, Letso POCT-GLUCOSE [id number] 17:26:57 Test Item Value Reference Range Interpretation Comments POC-GLUCOSE METER 247 mg/dL 70-110 H : TESTED A T [facility] 6720 (AKER) (test code [facility], = 1538) 97982: Graves Registration Specialist/Techni lorna ID = [id number] for Rebecca rolly, Nella POCT-GLUCOSE [id number] 16:13:16 Test Item Value Reference Range Interpretation Comments POC-GLUCOSE METER 280 mg/dL 70-110 H : TESTED A T [facility] 6720 (BEAKER) (test code [facility], = 1538) 75678: Graves Registration Specialist/Techni lorna ID = [id number] for Rebecca rolly, Nella Urinalysis w/Microscopic + Reflex to [id number] 15:26:49 Test Item Value Reference Range Interpretation Comments Color, UA (test code Light Yellow = 5778-6) Clarity, UA (test Clear code = 5767-9) Specific Cartwright, UA 1.020 1.001-1.035 (test code = 5811-5) pH, UA (test code = 6.5 5.0-8.0 5803-2) Protein, UA (test 600 mg/dL Negative A code = 84584-6) Glucose, UA (test >1000 mg/dL Negative A code = 365) Ketones, UA (test Trace Negative A code = 9234-8) Bilirubin, UA (test Negative Negative code = 30780-9) Blood, UA (test code Small Negative A = 19628-1) Nitrite, UA (test Negative Negative code = 5802-4) Leukocytes, UA (test Negative Negative code = 5799-2) Urobilinogen, UA 0.2 mg/dL 0.2-1.0 (test code = 83174-2) RBC, UA (test code = 3 See_Comment [Autom ated 65504-9) message] The system which generated this result [...] . Bacteria, UA (test Rare code = 48922-4) Mucus (test code = Rare 8247-9) Crystals, Urine (test None Seen code = 73871-0) Specimen Source (test code = 2795) JYOTI (test code = JYOTI) Graves Registration Specialist ID - [auto]Graves Registration Specialist ID - tech Lab Interpretation Abnormal (test code = 11240-8) [facility] + Reflex to Culture 2022-02-16 15:26:49 Test Item Value Reference Range Interpretation Comments Color, UA (test code Light Yellow = 5778-6) Clarity, UA (test Clear code = 5767-9) Specific Cartwright, UA 1.020 1.001-1.035 (test code = 5811-5) pH, UA (test code = 6.5 5.0-8.0 5803-2) Protein, UA (test 600 mg/dL Negative A code = 17358-0) Glucose, UA (test >1000 mg/dL Negative A code = 365) Ketones, UA (test Trace Negative A code = 2514-8) Bilirubin, UA (test Negative Negative code = 60769-9) Blood, UA (test code Small Negative A = 38839-7) Nitrite, UA (test Negative Negative code = 5802-4) Leukocytes, UA (test Negative Negative code = 5799-2) Urobilinogen, UA 0.2 mg/dL 0.2-1.0 (test code = 58880-2) RBC, UA (test code = 3 See_Comment [Autom ated 06496-5) message] The system which generated this result [...] . Bacteria, UA (test Rare code = 07069-1) Mucus (test code = Rare 8247-9) Crystals, Urine (test None Seen code = 58172-1) Specimen Source (test code = 2795) JYOTI (test code = JYOTI) Graves Registration Specialist ID - [auto]Graves Registration Specialist ID - tech Lab Interpretation Abnormal (test code = 69306-1) [facility]/Microsc[facility] + Reflex to Culture 2022-02-16 15:26:49 Test Item Value Reference Range Interpretation Comments Color, UA (test code Light Yellow = 5778-6) Clarity, UA (test Clear code = 5767-9) Specific Cartwright, UA 1.020 1.001-1.035 (test code = 5811-5) pH, UA (test code = 6.5 5.0-8.0 5803-2) Protein, UA (test 600 mg/dL Negative A code = 73890-0) Glucose, UA (test >1000 mg/dL Negative A code = 365) Ketones, UA (test Trace Negative A code = 2514-8) Bilirubin, UA (test Negative Negative code = 28623-5) Blood, UA (test code Small Negative A = 54760-7) Nitrite, UA (test Negative Negative code = 5802-4) Leukocytes, UA (test Negative Negative code = 5799-2) Urobilinogen, UA 0.2 mg/dL 0.2-1.0 (test code = 94911-9) RBC, UA (test code = 3 See_Comment [Autom ated 80359-7) message] The system which generated this result [...] . Bacteria, UA (test Rare code = 62923-0) Mucus (test code = Rare 8247-9) Crystals, Urine (test None Seen code = 37368-9) Specimen Source (test code = 2795) JYOTI (test code = JYOTI) Graves Registration Specialist ID - [auto]Graves Registration Specialist ID - tech Lab Interpretation Abnormal (test code = 31296-4) [facility]/Microscopic + Reflex to Culture 2022-02-16 15:26:49 Test Item Value Reference Range Interpretation Comments Color, UA (test code Light Yellow = 5778-6) Clarity, UA (test Clear code = 5767-9) Specific Cartwright, UA 1.020 1.001-1.035 (test code = 5811-5) pH, UA (test code = 6.5 5.0-8.0 5803-2) Protein, UA (test 600 mg/dL Negative A code = 83989-6) Glucose, UA (test >1000 mg/dL Negative A code = 365) Ketones, UA (test Trace Negative A code = 2514-8) Bilirubin, UA (test Negative Negative code = 04508-0) Blood, UA (test code Small Negative A = 39424-6) Nitrite, UA (test Negative Negative code = 5802-4) Leukocytes, UA (test Negative Negative code = 5799-2) Urobilinogen, UA 0.2 mg/dL 0.2-1.0 (test code = 45367-6) RBC, UA (test code = 3 See_Comment [Autom ated 42715-0) message] The system which generated this result [...] . Bacteria, UA (test Rare code = 04835-7) Mucus (test code = Rare 8247-9) Crystals, Urine (test None Seen code = 12340-8) Specimen Source (test code = 2795) JYOTI (test code = JYOTI) Graves Registration Specialist ID - [auto]Graves Registration Specialist ID - tech Lab Interpretation Abnormal (test code = 57325-6) [facility]/Microscopic + Reflex to Culture 2022-02-16 15:26:49 Test Item Value Reference Range Interpretation Comments Color, UA (test code Light Yellow = 5778-6) Clarity, UA (test Clear code = 5767-9) Specific Cartwright, UA 1.020 1.001-1.035 (test code = 5811-5) pH, UA (test code = 6.5 5.0-8.0 5803-2) Protein, UA (test 600 mg/dL Negative A code = 05091-9) Glucose, UA (test >1000 mg/dL Negative A code = 365) Ketones, UA (test Trace Negative A code = 2514-8) Bilirubin, UA (test Negative Negative code = 28822-2) Blood, UA (test code Small Negative A = 92040-3) Nitrite, UA (test Negative Negative code = 5802-4) Leukocytes, UA (test Negative Negative code = 5799-2) Urobilinogen, UA 0.2 mg/dL 0.2-1.0 (test code = 33017-5) RBC, UA (test code = 3 See_Comment [Autom ated 65644-7) message] The system which generated this result [...] . Bacteria, UA (test Rare code = 65652-2) Mucus (test code = Rare 8247-9) Crystals, Urine (test None Seen code = 36254-1) Specimen Source (test code = 2795) JYOTI (test code = JYOTI) Graves Registration Specialist ID - [auto]Graves Registration Specialist ID - tech Lab Interpretation Abnormal (test code = 04671-4) [facility]/Microscopic + Reflex to Culture 2022-02-16 15:26:49 Test Item Value Reference Range Interpretation Comments Color, UA (test code Light Yellow = 5778-6) Clarity, UA (test Clear code = 5767-9) Specific Cartwright, UA 1.020 1.001-1.035 (test code = 5811-5) pH, UA (test code = 6.5 5.0-8.0 5803-2) Protein, UA (test 600 mg/dL Negative A code = 86517-0) Glucose, UA (test >1000 mg/dL Negative A code = 365) Ketones, UA (test Trace Negative A code = 2514-8) Bilirubin, UA (test Negative Negative code = 76556-3) Blood, UA (test code Small Negative A = 33439-6) Nitrite, UA (test Negative Negative code = 5802-4) Leukocytes, UA (test Negative Negative code = 5799-2) Urobilinogen, UA 0.2 mg/dL 0.2-1.0 (test code = 97840-2) RBC, UA (test code = 3 See_Comment [Autom ated 13008-6) message] The system which generated this result [...] . Bacteria, UA (test Rare code = 69100-2) Mucus (test code = Rare 8247-9) Crystals, Urine (test None Seen code = 60551-0) Specimen Source (test code = 2795) JYOTI (test code = JYOTI) Graves Registration Specialist ID - [auto]Graves Registration Specialist ID - tech Lab Interpretation Abnormal (test code = 76710-8) [facility]/ REFLEX URINE [id number] 15:26:49 Test Item Value Reference Range Interpretation [...] = 1521) SOURCE(BEAKER) (test code = 2795) Graves Registration Specialist ID - [auto]Graves Registration Specialist ID - techPOCT-GLUCOSE [id number] 15:14:56 Test Item Value Reference Range Interpretation Comments POC-GLUCOSE METER 271 mg/dL 70-110 H : TESTED A T [facility] 6720 ([facility]) (test code [facility], = 1538) [address]: Graves Registration Specialist/Techni lorna ID = [id number] for Rebecca rolly, Nella POCT-GLUCOSE [id number] 14:27:23 Test Item Value Reference Range Interpretation Comments POC-GLUCOSE METER 285 mg/dL 70-110 H : TESTED A T [facility] 6720 ([facility]) (test code = [facility], 1538) 83112: Graves Registration Specialist/Techni lorna ID = [id number] for Ok oroafor, Letso POCT-GLUCOSE [id number] 13:36:16 Test Item Value Reference Range Interpretation Comments POC-GLUCOSE METER 342 mg/dL 70-110 H : Notified RN/MD: ([facility]) (test code = TESTED AT [place] 9892920 1538) [facility], [address]: Graves Registration Specialist/Techni lorna ID = [id number] for On aga, Denise BASIC METABOLIC [id number] 12:34:45 Test Item Value Reference Range Interpretation [...] De scription 1092) sq m Result G1 Norm al or [...] not appl icable for dialysis patien ts Graves Registration Specialist ID - PIAYA LPOCT-GLUCOSE [id number] 12:20:08 Test Item Value Reference Range Interpretation Comments POC-GLUCOSE METER 427 mg/dL 70-110 HH : Notified RN/: (BEAKER) (test code = TESTED AT [facility] 5998 6901) [facility], [address]: Graves Registration Specialist/Techni lorna ID = [id number] for On agaDenise HEPATIC FUNCTION [id number] 12:11:01 Test Item Value Reference Range Interpretation [...] (test code = 13 U/L 6-55 347) Graves Registration Specialist ID - LENY LHIGH SENSITIVITY TROPONIN [id number] 12:07:22 Test Item Value Reference Range Interpretation Comments HIGH SENSITIVITY 10 pg/ml See_Comment [Automated message] TROPONIN I (test code = The system which 6359668) generated this result transmitted ref erence range: <=17. Th e reference range was not used to int erpret this result as normal/abnormal . Graves Registration Specialist ID - LENY LThe BUSINESS LINE MANAGER STAT High Sensitivity Troponin-I results should be used in conjunction with other diagnostic information such as ECG, clinical observations and information, and patient symptoms to aid in the diagnosis of DE.LACTIC ACID, [id number] 12:05:20 Test Item Value Reference Range Interpretation Comments LACTATE BLOOD VENOUS (2) (BEAKER) 1.58 mmol/L 0.50-2.20 (test code = 2872) Graves Registration Specialist ID - LENY LCBC W/PLT COUNT & AUTO [id number] 11:39:33 Test Item Value Reference Range Interpretation [...] = 2801) RAD, CHEST, 1 VIEW, NON [id number] 11:03:00Reason for exam:->covid positiveF[facility]IOLA [facility]: [facility] : 1970 Sex: FFINAL [...] TERRELL BOYD MD on 1:03 AMPOCT- GLUCOSE [id number] 09:27:22 Test Item Value Reference Range Interpretation Comments POC-GLUCOSE METER 380 mg/dL 70-110 H : TESTED A T [facility] 6720 (BEAKER) (test code [facility], = 1538) 19146: Graves Registration Specialist/Techni lorna ID = [id number] for Nella Hendricks CBC W/AUTO [id number] 00:00:00 Test Item Value Reference Range Interpretation [...] NUCLEATED RBCS (test code = 0.00 K/UL 28826) CBC W/AUTO [id number] 00:00:00 Test Item Value Reference Range Interpretation [...] NUCLEATED RBCS (test code = 0.00 K/UL 30222) MICROALBUMIN/CREATININE, RANDOM AND [id number] 00:00:00 Test Item Value Reference Range Interpretation Comments CREATININE, URINE, CONC. (test 104.8 MG/DL code = 2072) ALBUMIN, URINE, RANDOM (test code 216.2 MG/DL = 93945) CALC ALBUMIN/CREAT, RND (test 2063 MG/G code = 54146) CBC W/AUTO [id number] 00:00:00 Test Item Value Reference Range Interpretation [...] NUCLEATED RBCS (test code = 0.00 K/UL 47582) MICROALBUMIN/CREATININE, RANDOM AND [id number] 00:00:00 Test Item Value Reference Range Interpretation Comments CREATININE, URINE, CONC. (test 104.8 MG/DL code = 2072) ALBUMIN, URINE, RANDOM (test code 216.2 MG/DL = 86227) CALC ALBUMIN/CREAT, RND (test 2063 MG/G code = 37941) HEMOGLOBIN [id number] 00:00:00 Test Item Value Reference Range Interpretation Comments HEMOGLOBIN A1c (test code = 17842) 9.5 % HEMOGLOBIN [id number] 00:00:00 Test Item Value Reference Range Interpretation Comments HEMOGLOBIN A1c (test code = 37037) 9.5 % HEMOGLOBIN [id number] 00:00:00 Test Item Value Reference Range Interpretation Comments HEMOGLOBIN A1c (test code = 58460) 9.5 % LIPID [id number] 00:00:00 Test Item Value Reference Range Interpretation Comments CHOLESTEROL (test code = 2210) 178 MG/DL TRIGLYCERIDES (test code = 2232) 97 MG/DL HDL CHOLESTEROL (test code = 2220) 68 MG/DL CALC LDL CHOL (test code = 2237) 91 MG/DL RISK RATIO LDL/HDL (test code = 1.34 RATIO 2238) LIPID [id number] 00:00:00 Test Item Value Reference Range Interpretation Comments CHOLESTEROL (test code = 2210) 178 MG/DL TRIGLYCERIDES (test code = 2232) 97 MG/DL HDL CHOLESTEROL (test code = 2220) 68 MG/DL CALC LDL CHOL (test code = 2237) 91 MG/DL RISK RATIO LDL/HDL (test code = 1.34 RATIO 2238) COMPREHENSIVE METABOLIC [id number] 00:00:00 Test Item Value Reference Range Interpretation Comments GLUCOSE (test code = 2217) 212 MG/DL BUN (test code = 2208) 33 MG/DL CREATININE (test code = 2214) 1.35 MG/DL eGFR AMER. (test code 53 ML/MIN/1.73 = 78680) eGFR NON- AMER. (test 45 ML/MIN/1.73 code = 37257) CALC BUN/CREAT (test code = 24 RATIO [...] BILIRUBIN, TOTAL (test code = <0.2 MG/DL 220) ALKALINE PHOSPHATASE (test 98 U/L code = 2204) AST (test code = 2218) 13 U/L ALT (test code = 2219) 14 U/L COMPREHENSIVE METABOLIC [id number] 00:00:00 Test Item Value Reference Range Interpretation Comments GLUCOSE (test code = 2217) 212 MG/DL BUN (test code = 2208) 33 MG/DL CREATININE (test code = 2214) 1.35 MG/DL eGFR AMER. (test code 53 ML/MIN/1.73 = 95765) eGFR NON- AMER. (test 45 ML/MIN/1.73 code = 08250) CALC BUN/CREAT (test code = 24 RATIO [...] = 2219) 14 U/L LIVER (HEPATIC) FUNCTION [id number] 00:00:00 Test Item Value Reference Range Interpretation [...] = 2219) 14 U/L LIVER (HEPATIC) FUNCTION [id number] 00:00:00 Test Item Value Reference Range Interpretation Comments PROTEIN, TOTAL (test code = 2229) 6.7 G/DL ALBUMIN (test code = 2201) 3.5 G/DL BILIRUBIN, TOTAL (test code = <0.2 MG/DL 2206) BILIRUBIN, DIRECT (test code = <0.2 MG/DL 2021) ALKALINE PHOSPHATASE (test code = 98 U/L 2203) AST (test code = 2218) 13 U/L ALT (test code = 2219) 14 U/L [id number] 00:00:00 Test Item Value Reference Range Interpretation Comments TSH, THIRD GENERATION (test code 0.895 UIU/ML = 2821) [id number] 00:00:00 Test Item Value Reference Range Interpretation Comments TSH, THIRD GENERATION (test code 0.895 UIU/ML = 2821) [id number] 00:00:00 Test Item Value Reference Range Interpretation Comments TSH, THIRD GENERATION (test code 0.895 UIU/ML = 2821)
--- NOTE | 2023-02-20 12:21 | RAD REPORT ---
EXAM DESCRIPTION: RADChest Single View02/20/2023 12:11 pm CLINICAL HISTORY: COUGH COMPARISON: Chest Single View dated 02/17/2023; Chest Single View dated 01/28/2023; Chest Single View d ated 05/30/2022; Chest Single View dated 04/09/2022 TECHNIQUE: Portable AP view of the chest. FINDINGS: The lungs are clear. No pneumothorax or effusion. The cardiomediastinal contours are unre markable. IMPRESSION: No acute cardiopulmonary process.
--- NOTE | 2023-02-20 12:34 | RAD REPORT ---
EXAM DESCRIPTION: CT - Chest Abd Pelvis Wo Con - 02/20/2023 12:07 pm CLINICAL HISTORY: Abdominal distention;Congestion COMPARISON: Chest For Pe Angio dated 01/10/2018; Chest Abd Pelvis Wo Con dated 12/11/2016; Stone José col dated 05/30/2022 TECHNIQUE: Thin axial CT images of the chest, abdomen, and pelvis, performed without IV contrast. Mu ltiplanar reformats were generated and reviewed. All CT scans are performed using dose optimization technique as appropriate and may include automated exposure control or mA/KV adjustment according to patient size. FINDINGS: The lungs are clear.No pleural or pericardial effusion.No intrathoracic adenopathy. The liver, spleen, pancreas, and adrenal glands are within normal limits. Status post cholecystectom y. Crescentic isodense right posterior perinephric collection measuring 4.4 x 1.6 cm in axial dimensions and 4.6 cm in craniocaudal extent,, suggestive of a perinephric or subcapsular hematoma with perinep hric space extension. No hydroureteronephrosis. The right superior pole 2-3 millimeter nonobstructing renal calculus No bowel obstruction, free air, free fluid or abscess. Normal appendix. No pathologic lymphadenopath y in the abdomen or pelvis. No worrisome osseous finding. IMPRESSION: No acute findings in the chest. Crescentic isodense right posterior perinephric space collection, measuring 4.6 cm in greatest dimens ion. This is suggestive of an organizing hematoma in the setting of recent renal biopsy. Nonobstructing right superior pole 2 3 millimeter renal calculus.
[2023-02-20] MEDS ORDERED: NA CHLORIDE 0.9% 1,000 ML ONE (13:03)
[2023-02-20 13:18] LABS: ALT/SGPT 18 U/L (13-56); AST/SGOT 11 U/L (15-37); Albumin 2.6 g/dL (3.4-5.0); Alkaline Phosphatase 89 U/L (45-117); BUN Blood Urea Nitrogen 27 mg/dL (7-18); Bicarbonate 31 mEq/L (21-32); Bilirubin Direct < 0.1 mg/dL (0-0.2); Bilirubin Indirect, Calculated ND mg/dL (0.2-0.8); Bilirubin Total 0.2 mg/dL (0.2-1.0); Glomerular Filtration Rate 9 ml/min (=/>90); Glucose Level 143 mg/dL (74-106); Lipase 18 U/L (13-75); Magnesium 2.1 mg/dL (1.6-2.4); NT PRO-BNP 660 pg/mL (<125); Potassium 3.8 mEq/L (3.5-5.1); Protein, Total 6.8 g/dL (6.4-8.2); Sodium Level 140 mEq/L (136-145); Troponin High Sensitivity 11.9 pg/mL (<58.9)
[2023-02-20 13:54] LABS: Absolute Lymphocytes (CBC) 1.5 K/uL (0.7-4.9); Lymphocytes % 25.6 % (15.3-44.8); MCV 91.5 fL (80-100); MPV 8.8 fL (7.6-11.3); Platelets 167 thou/uL (152-406); RBC Red Blood Cell Count 3.17 M/uL (3.86-4.86)
[2023-02-20 13:59] LABS: Protime INR 1.03
--- NOTE | 2023-02-20 13:59 | RAD REPORT ---
EXAM DESCRIPTION: CT - Head Brain Wo Cont - 02/20/2023 1:45 pm CLINICAL HISTORY: WEAKNESS Headache, drowsiness, weakness COMPARISON: Head Brain Wo Cont dated 02/17/2023; Head Brain Wo Cont dated 01/28/2023; Head Brain Wo Con t dated 02/16/2022 TECHNIQUE: All CT scans are performed using dose optimization technique as appropriate and may inclu de automated exposure control or mA/KV adjustment according to patient size. FINDINGS: No intracranial hemorrhage, hydrocephalus or extra-axial fluid collection.12 mm area of di minished density is seen adjacent to the left frontal horn, probably subacute ischemic insult. The paranasal sinuses and mastoids are clear. The calvarium is intact. IMPRESSION: No acute intracranial abnormality. Area of subacute ischemic insult suspected measuring 12 mm suspected adjacent to the left frontal hor n.
--- NOTE | 2023-02-20 16:07 | EDPHYS ---
Physician Documentation [facility] Name: Bisi Santo Age: 53 yrs Sex: Female : 1970 Arrival Date: 02/20/2023 Time: 11:37 Bed 15 Private MD: Keaton Martinez ED Physician Hari De La Garza HPI: 02/20 15:45 This 53 yrs old Black Female presents to ER via Wheelchair with complaints of charlene Nausea/Vomiting. 15:45 The patient presents to the emergency department with nausea, vomiting, that is charlene continuous. Onset: The symptoms/episode began/occurred 2 week(s) ago. Possible causes: unknown. The symptoms are aggravated by nothing. Associated signs and symptoms: The patient has no apparent associated signs or symptoms. Severity of symptoms: At their worst the symptoms were mild moderate. The patient has not experienced similar symptoms in the past. Historical: - Allergies: 11:53 Codeine; hb 11:53 Demerol; hb 11:53 Morphine; hb 11:53 Sulfa (Sulfonamide Antibiotics); hb - PMHx: 11:53 Diabetes - IDDM; Hypertension; kidney disease (Hypertension); hb - PSHx: 11:53 biopsy kidney (en); hb - Immunization history:: Adult Immunizations up to date. - Social history:: Smoking status: Patient denies any tobacco usage or history of. ROS: 15:47 Constitutional: Negative for fever, chills, and weight loss, Eyes: Negative for injury, charlene pain, redness, and discharge, ENT: Negative for injury, pain, and discharge, Neck: Negative for injury, pain, and swelling, Cardiovascular: Negative for chest pain, palpitations, and edema, Respiratory: Negative for shortness of breath, cough, wheezing, and pleuritic chest pain, Abdomen/GI: Negative for abdominal pain, nausea, vomiting, diarrhea, and constipation, Back: Negative for injury and pain, : Negative for injury, bleeding, discharge, and swelling, MS/Extremity: Negative for injury and deformity, Skin: Negative for injury, rash, and discoloration, Psych: Negative for depression, anxiety, suicide ideation, homicidal ideation, and hallucinations, Allergy/Immunology: Negative for hives, rash, and allergies, Endocrine: Negative for neck swelling, polydipsia, polyuria, polyphagia, and marked weight changes, Hematologic/Lymphatic: Negative for swollen nodes, abnormal bleeding, and unusual bruising, 15:47 Neuro: Positive for altered mental status, dizziness, weakness, Exam: 15:47 Constitutional: This is a well developed, well nourished patient who is awake, alert, charlene and in no acute distress. Head/Face: Normocephalic, atraumatic. Eyes: Pupils equal round and reactive to light, extra-ocular motions intact. Lids and lashes normal. Conjunctiva and sclera are non-icteric and not injected. Cornea within normal limits. Periorbital areas with no swelling, redness, or edema. ENT: Nares patent. No nasal discharge, no septal abnormalities noted. Tympanic membranes are normal and external auditory canals are clear. Oropharynx with no redness, swelling, or masses, exudates, or evidence of obstruction, uvula midline. Mucous membranes moist. Neck: Trachea midline, no thyromegaly or masses palpated, and no cervical lymphadenopathy. Supple, full range of motion without nuchal rigidity, or vertebral point tenderness. No Meningismus. Chest/axilla: Normal chest wall appearance and motion. Nontender with no deformity. No lesions are appreciated. Cardiovascular: Regular rate and rhythm with a normal S1 and S2. No gallops, murmurs, or rubs. Normal PMI, no JVD. No pulse deficits. Respiratory: Lungs have equal breath sounds bilaterally, clear to auscultation and percussion. No rales, rhonchi or wheezes noted. No increased work of breathing, no retractions or nasal flaring. Abdomen/GI: Soft, non-tender, with normal bowel sounds. No distension or tympany. No guarding or rebound. No evidence of tenderness throughout. Back: No spinal tenderness. No costovertebral tenderness. Full range of motion. Skin: Warm, dry with normal turgor. Normal color with no rashes, no lesions, and no evidence of cellulitis. 15:47 ECG was reviewed by the Attending Physician. Vital Signs: 11:51 BP 146 / 87; Pulse 89; Resp 16; Temp 98.3; Pulse Ox 98% on R/A; Weight 70.31 kg; Height hb 5 ft. 2 in. ; Pain 3/10; 14:00 BP 162 / 85; Pulse 91; Resp 12; Pulse Ox 99% on R/A; me1 15:00 BP 158 / 91; Pulse 87; Resp 14; Pulse Ox 98% on R/A; me1 16:00 BP 165 / 86; Pulse 88; Resp 14; Pulse Ox 99% on R/A; me1 16:45 BP 162 / 87; Pulse 87; Resp 12; Pulse Ox 98% on R/A; me1 19:07 BP 173 / 77; Pulse 95; Resp 17; Pulse Ox 99% on R/A; me1 19:45 BP 165 / 77; Pulse 91; Resp 18; Pulse Ox 98% on R/A; me1 11:51 Body Mass Index 28.35 (70.31 kg, 157.48 cm) hb 11:51 Pain Scale: Adult hb NIH Stroke Scale Scores: 16:09 NIHSS Score: 4 charlene MDM: 11:44 Patient medically screened. charlene 15:48 Differential diagnosis: Nonspecific abd pain. Differential Diagnosis altered mental charlene status. Differential Diagnosis: CVA, electrolyte abnormality, hypoglycemia, intracranial bleed, pneumonia, TIA, UTI, volume depletion. Data reviewed: vital signs, nurses notes, lab test result(s), EKG, radiologic studies, CT scan, MRI, plain films. Consideration of Admission/Observation Patient was admitted/placed on observation. Escalation of care including admission/observation considered. I considered the following discharge prescriptions or medication management in the emergency department Medications were administered in the Emergency Department. See MAR. Independent interpretation of the following test(s) in the Emergency Department EKG: See my EKG interpretation above. Test considered but Not performed: Ultrasound NO REAL USG. Historians other than the Patient: JARRELL AND DR ALEXANDER. Care significantly affected by the following chronic conditions: Diabetes, Hypertension, Obesity, Chronic Kidney Disease. Counseling: I had a detailed discussion with the patient and/or guardian regarding the historical points, exam findings, and any diagnostic results supporting the discharge/admit diagnosis, the presence of at least one elevated blood pressure reading (>120/80) during this emergency department visit, lab results, radiology results, the need for further work-up and treatment in the hospital. 02/20 11:47 Order name: Basic Metabolic Panel; Complete Time: 13:26 [facility] 02/20 11:47 Order name: CBC with Diff; Complete Time: 15:35 [facility] 02/20 11:47 Order name: LFT's; Complete Time: 13:26 [facility] 02/20 11:47 Order name: Magnesium; Complete Time: 13:26 [facility] 02/20 11:47 Order name: NT PRO-BNP; Complete Time: 13: [facility] 02/20 11:47 Order name: PT-INR; Complete Time: 15:35 [facility] 02/20 11:47 Order name: Troponin HS; Complete Time: 13:26 [facility] 02/20 11:47 Order name: Lipase; Complete Time: 13: [facility] 02/20 11:47 Order name: Urinalysis w/ reflexes; Complete Time: 17:50 [facility] 02/20 11:47 Order name: Flu; Complete Time: 13: [facility] 02/20 11:47 Order name: SARS-COV-2 RT PCR; Complete Time: 15:35 [facility] 02/20 17:02 Order name: Magnesium [facility] 02/20 17:02 Order name: Phosphorus [facility] 02/20 17:02 Order name: T4 Free [facility] 02/20 17:02 Order name: Thyroid Stimulating Hormone [facility] 02/20 17:02 Order name: Urinalysis w/ reflexes [facility] 02/20 17:02 Order name: Basic Metabolic Panel [facility] 02/20 17:02 Order name: Basic Metabolic Panel [facility] 02/20 17:02 Order name: CBC with Automated Diff [facility] 02/20 17:02 Order name: CBC with Automated Diff [facility] 02/20 17:02 Order name: Lipid Profile [facility] 02/20 17:02 Order name: Lipid Profile [facility] 02/20 17:47 Order name: Urine Culture [facility] 02/20 11:47 Order name: XRAY Chest (1 view); Complete Time: 13:26 [facility] 02/20 11:47 Order name: CT Chest Abdomen Pelvis W/O Contrast; Complete Time: 13:26 [facility] 02/20 13:34 Order name: CT Head Brain wo Cont; Complete Time: 15:35 02/20 15:45 Order name: US Carotid Artery Bilateral; Complete Time: 17:03 [facility] 02/20 17:29 Order name: Renal Ultrasound-Complete; Complete Time: 19:35 [facility] 02/20 18:06 Order name: Brain Wo Cont; Complete Time: 18:51 [facility] 02/20 11:47 Order name: EKG; Complete Time: 11:47 [facility] 02/20 17:02 Order name: Renal [facility] 02/20 17:03 Order name: Physical Therapy Consult [facility] 02/20 11:47 Order name: Cardiac monitoring; Complete Time: 14:06 [facility] 02/20 11:47 Order name: EKG - Nurse/Tech; Complete Time: 14:06 [facility] 02/20 11:47 Order name: IV Saline Lock; Complete Time: 14:06 [facility] 02/20 11:47 Order name: Labs collected and sent; Complete Time: 12:47 [facility] 02/20 11:47 Order name: O2 Per Protocol; Complete Time: 12:47 [facility] 02/20 11:47 Order name: O2 Sat Monitoring; Complete Time: 12:47 [facility] 02/20 13:06 Order name: Labs - recollect needed: recollect blue and lavender top; Complete Time: bd 13:44 EC:47 Rate is 88 beats/min. Rhythm is regular. QRS [place] is Normal. MI interval is normal. QRS charlene interval is normal. QT interval is normal. No Q waves. T waves are Normal. No ST changes noted. Clinical impression: NSR w/ Non-specific ST/T Changes and No evidence of ischemia. Interpreted by me. Reviewed by me. Administered Medications: 13:05 Drug: NS 0.9% IV 1000 ml IV at 75 ml/hr continuous Route: IV; Rate: 75 ml/hr; Site: me1 right forearm; 19:48 Follow up: IV Status: Infusion continued upon admission me1 17:01 Drug: Aspirin PO Chewable Tablet 162 mg PO once Route: PO; me1 18:23 Follow up: Response: No adverse reaction me1 17:01 Drug: foLIC Acid IVPB 1 mg IVPB once Route: IVPB; Site: right forearm; me1 17:02 Follow up: IV Status: Infusion continued me1 18:56 Drug: Rocephin IV 1 grams IV at per protocol once; Given slow IV push per pharmacy me1 instructions Route: IV; Rate: per protocol; Site: right forearm; 19:04 Follow up: Response: No adverse reaction me1 Disposition Summary: 02/20/23 16:07 Hospitalization Ordered Notes: Hospitalization Status: Inpatient Admission charlene Provider: Vinay Jordan cha Location: Telemetry/MedSurg (Inpatient) charlene Condition: Fair charlene Problem: new charlene Symptoms: have improved charlene Bed/Room Type: Standard charlene Room Assignment: 218(09/27/23 19:33) cg Diagnosis - Vomiting charlene - Chronic kidney disease, stage 5 charlene - Cerebral infarction, unspecified - SUBACUTE 12 MM LEFT FRONTAL HORN charlene - Other injury of left kidney, initial encounter - LEFT PERINEPHERIC HEMATOMA, 4.6 CM charlene - Anemia in chronic kidney disease charlene - UTI/ Urinary tract infection, site not specified charlene Forms: - Medication Reconciliation Form charlene - SBAR form charlene - Leadership Thank You Letter charlene NIH Stroke Scale - NIH Stroke Score Date: 02/20/2023 Time: 16:09 Total Score = 4 10. Dysarthria (speech clarity - read or repeat words) - 1(Mild to Moderate) 11. Extinction and Inattention (visual/tactile/auditory/spatial/personal) - 0(No abnormality) 1a. Level of Consciousness (LOC) - 0(Alert) 1b. Level of Consciousness (LOC) (Month \T\ Age) - 0(Both) 1c. LOC Commands (Open \T\ Closes Eyes/Flavor Room Worker) - 0(Both) 2. Best Gaze (Lateral Gaze Paresis) - 0(Normal) 3. Visual Field Loss - 0(No visual loss) 4. Facial Palsy - 0(Normal) 5a. Left Arm: Motor (10-second hold) - 0(No drift) 5b. Right Arm: Motor (10-second hold) - 1(Drift) 6a. Left Leg: Motor (5-second hold - always test supine) - 0(No drift) 6b. Right Leg: Motor (5-second hold - always test supine) - 1(Drift) 7. Limb Ataxia (finger/nose \T\ heel/tabor - test with eyes open) - 1(Present in one limb) 8. Sensory Loss (pinprick arms/legs/face) - 0(Normal) 9. Best Language: Aphasia (description/naming/reading) - 0(No aphasia) Initials: charlene Signatures: Dispatcher [employer] EDMS Sofía Blanc Corey, MD MD cha Attema, Lee, STOCK LIFTER-C STOCK LIFTER-Cla1 Annabelle Marroquin, ISAIAH RN Malu Paul, ISAIAH COLON Steff Asencio RN RN me1 Corrections: (The following items were deleted from the chart) 18:06 16:09 MR STROKE PROTOCOL+MRI.RAD.BRZ ordered. EDMS EDMS 19:33 16:07 charlene knapp
--- NOTE | 2023-02-20 16:07 | ER ---
Nurse's Notes [facility] Name: Bisi Santo Age: 53 yrs Sex: Female : 1970 Arrival Date: 02/20/2023 Time: 11:37 Bed 15 Private MD: Keaton Martinez Diagnosis: Vomiting;Chronic kidney disease, stage 5;Cerebral infarction, unspecified-SUBACUTE 12 MM LEFT FRONTAL HORN;Other injury of left kidney, initial encounter-LEFT PERINEPHERIC HEMATOMA, 4.6 CM;Anemia in chronic kidney disease;UTI/ Urinary tract infection, site not specified Presentation: 02/20 11:51 Chief complaint: N/V x 2 weeks. Recently inpatient for renal failure and renal biopsy. hb Not tolerating fluids. Coronavirus screen: Client presents with at least one sign or symptom that may indicate coronavirus-19. Provider contacted for isolation considerations. Ebola Screen: No symptoms or risks identified at this time. Initial Sepsis Screen: Does the patient meet any 2 criteria? No. Patient's initial sepsis screen is negative. Does the patient have a suspected source of infection? No. Patient's initial sepsis screen is negative. Risk Assessment: Do you want to hurt yourself or someone else? Patient reports no desire to harm self or others. Onset of symptoms was February 06, 2023. 11:51 Method Of Arrival: Wheelchair hb 11:51 Acuity: SONIA 3 hb Historical: - Allergies: 11:53 Codeine; hb 11:53 Demerol; hb 11:53 Morphine; hb 11:53 Sulfa (Sulfonamide Antibiotics); hb - PMHx: 11:53 Diabetes - IDDM; Hypertension; kidney disease (Hypertension); hb - PSHx: 11:53 biopsy kidney (en); hb - Immunization history:: Adult Immunizations up to date. - Social history:: Smoking status: Patient denies any tobacco usage or history of. Screenin:16 [facility] ED Fall Risk Assessment (Adult) History of falling in the last 3 months, me1 including since admission No falls in past 3 months (0 pts) Confusion or Disorientation No (0 pts) Intoxicated or Sedated No (0 pts) Impaired Gait No (0 pts) Mobility Assist Device Used No (0 pt) Altered Elimination No (0 pt) Score/Fall Risk Level 0 - 2 = Low Risk. Abuse screen: Denies threats or abuse. Nutritional screening: No deficits noted. Tuberculosis screening: No symptoms or risk factors identified. Assessment: 18:16 General: Appears uncomfortable, well groomed, well developed, well nourished, Behavior me1 is cooperative, appropriate for age, quiet, Reports n/v x 2 weeks. Recently inpatient for renal failure and renal biopsy. Not tolerating fluids today. Denies fever, chills. Pain: Denies pain. Neuro: Level of Consciousness is awake, alert, obeys commands, Oriented to person, place, time, situation, Appropriate for age. Cardiovascular: Capillary refill < 3 seconds Patient's skin is warm and dry. Respiratory: Airway is patent Respiratory effort is even, unlabored, Respiratory pattern is regular, symmetrical. GI: Abdomen is non-distended, Reports nausea, vomiting, for 2 weeks. Vital Signs: 11:51 BP 146 / 87; Pulse 89; Resp 16; Temp 98.3; Pulse Ox 98% on R/A; Weight 70.31 kg; Height hb 5 ft. 2 in. ; Pain 3/10; 14:00 BP 162 / 85; Pulse 91; Resp 12; Pulse Ox 99% on R/A; me1 15:00 BP 158 / 91; Pulse 87; Resp 14; Pulse Ox 98% on R/A; me1 16:00 BP 165 / 86; Pulse 88; Resp 14; Pulse Ox 99% on R/A; me1 16:45 BP 162 / 87; Pulse 87; Resp 12; Pulse Ox 98% on R/A; me1 19:07 BP 173 / 77; Pulse 95; Resp 17; Pulse Ox 99% on R/A; me1 19:45 BP 165 / 77; Pulse 91; Resp 18; Pulse Ox 98% on R/A; me1 11:51 Body Mass Index 28.35 (70.31 kg, 157.48 cm) hb 11:51 Pain Scale: Adult hb NIH Stroke Scale Scores: 16:09 NIHSS Score: 4 [facility] ED Course: 11:40 Patient arrived in ED. mr 11:40 Keaton Martinez DO is Private Physician. mr 11:44 Hari De La Garza MD is Attending Physician. charlene 11:53 Triage completed. hb 11:54 Arm band placed on. hb 12:09 CT Chest Abdomen Pelvis W/O Contrast In Process Unspecified. EDMS 12:12 XRAY Chest (1 view) In Process Unspecified. EDMS 12:17 Steff Asencio, RN is Primary Nurse. me1 12:46 SARS-COV-2 RT PCR Sent. me1 12:47 Flu Sent. me1 12:47 Urinalysis w/ reflexes Sent. me1 12:47 Lipase Sent. me1 12:47 Basic Metabolic Panel Sent. me1 12:47 CBC with Diff Sent. me1 12:47 LFT's Sent. me1 12:47 Magnesium Sent. me1 12:47 NT PRO-BNP Sent. me1 12:47 PT-INR Sent. me1 12:47 Troponin HS Sent. me1 13:05 Inserted saline lock: 24 gauge in right forearm, using aseptic technique. me1 13:07 Missed attempt(s): 22 gauge in left antecubital area. Bleeding controlled, band aid ll1 applied, catheter tip intact. 13:46 CT Head Brain wo Cont In Process Unspecified. EDMS 16:04 Vinay Jordan MD is Hospitalizing Provider. charlene 16:23 US Carotid Artery Bilateral In Process Unspecified. EDMS 17:12 Urinalysis w/ reflexes Sent. me1 18:10 Brain Wo Cont In Process Unspecified. EDMS 18:16 Patient has correct armband on for positive identification. Bed in low position. Call me1 light in reach. Side rails up X2. Provided Education on: POC. Verbalized understanding. . 18:16 No provider procedures requiring assistance completed. Flushed right forearm. me1 18:23 Urinalysis w/ reflexes Sent. me1 18:54 Renal Ultrasound-Complete In Process Unspecified. EDMS 19:40 Urine Culture Sent. me1 19:46 Patient admitted, IV remains in place. me1 Administered Medications: 13:05 Drug: NS 0.9% IV 1000 ml IV at 75 ml/hr continuous Route: IV; Rate: 75 ml/hr; Site: me1 right forearm; 19:48 Follow up: IV Status: Infusion continued upon admission me1 17:01 Drug: Aspirin PO Chewable Tablet 162 mg PO once Route: PO; me1 18:23 Follow up: Response: No adverse reaction me1 17:01 Drug: foLIC Acid IVPB 1 mg IVPB once Route: IVPB; Site: right forearm; me1 17:02 Follow up: IV Status: Infusion continued me1 18:56 Drug: Rocephin IV 1 grams IV at per protocol once; Given slow IV push per pharmacy ok1 instructions Route: IV; Rate: per protocol; Site: right forearm; 19:04 Follow up: Response: No adverse reaction me1 Medication: 18:16 VIS not applicable for this client. me1 Outcome: 16:07 Decision to Hospitalize by Provider. charlene 19:46 Admitted to Med/surg accompanied by nurse, room 218, with chart, Report called to ok1 ISAIAH Garsia 19:46 Condition: stable 19:46 Instructed on the need for admit, 20:30 Patient left the ED. lg3 NIH Stroke Scale - NIH Stroke Score Date: 02/20/2023 Time: 16:09 Total Score = 4 10. Dysarthria (speech clarity - read or repeat words) - 1(Mild to Moderate) 11. Extinction and Inattention (visual/tactile/auditory/spatial/personal) - 0(No abnormality) 1a. Level of Consciousness (LOC) - 0(Alert) 1b. Level of Consciousness (LOC) (Month \T\ Age) - 0(Both) 1c. LOC Commands (Open \T\ Closes Eyes/Returns Supervisor) - 0(Both) 2. Best Gaze (Lateral Gaze Paresis) - 0(Normal) 3. Visual Field Loss - 0(No visual loss) 4. Facial Palsy - 0(Normal) 5a. Left Arm: Motor (10-second hold) - 0(No drift) 5b. Right Arm: Motor (10-second hold) - 1(Drift) 6a. Left Leg: Motor (5-second hold - always test supine) - 0(No drift) 6b. Right Leg: Motor (5-second hold - always test supine) - 1(Drift) 7. Limb Ataxia (finger/nose \T\ heel/tabor - test with eyes open) - 1(Present in one limb) 8. Sensory Loss (pinprick arms/legs/face) - 0(Normal) 9. Best Language: Aphasia (description/naming/reading) - 0(No aphasia) Initials: charlene Signatures: Dispatcher [employer] EDHari Pemberton MD MD cha Rivera, Saniya, Reg Reg mr Malu Paul RN RN Yun Saucedo RN RN 3 Adenike Willett RN RN [facility] Steff Asencio, RN RN me1
--- NOTE | 2023-02-20 16:30 | RAD REPORT ---
EXAM DESCRIPTION: - CP - 02/20/2023 4:21 pm CLINICAL HISTORY: DIZZINESS Headache, drowsiness, CVA symptomology COMPARISON: No comparisons TECHNIQUE: Real-time sonographic evaluation of both carotid systems was performed. Doppler interroga tion was performed with waveform tracing bilaterally. FINDINGS: Normal high resistance waveforms are noted in both external carotid arteries. The common c arotid arteries and internal carotid arteries show normal low resistance waveforms. Focal small to moderate-size soft plaque is seen left carotid bulb. There is turbulent flow noted lef t ICA bulb with mildly elevated peak systolic velocity measurement 126 cm/second. No right-sided plaq ue or flow abnormality. Antegrade flow seen in both vertebral arteries. IMPRESSION: Focal mild soft plaque is noted left carotid bulb resulting mild stenosis, less than 50% .
[2023-02-20] MEDS ORDERED: ACETAMINOPHEN 325 MG TABLET PO PRN (16:53)
--- NOTE | 2023-02-20 17:02 | P.HP ---
Certification for Inpatient Patient admitted to: Inpatient With expected LOS: >2 Midnights Patient will require the following post-hospital care: None Practitioner: I am a practitioner with admitting privileges, knowledge of patient current condition, hospital course, and medical plan of care. Services: Services provided to patient in accordance with Admission requirements found in Title 42 Section 412.3 of the Code of Federal Regulations Patient History Date of Service: 02/20/23 Reason for admission: Nausea and vomiting History of Present Illness: Patient is a 53-year-old female with a past medical history significant for DM 2, CKD, hypertension, HLD who presents with complaint of nausea and vomiting. Patient reported that she was discharged from [facility] on February 03, 2023 and ever since patient has been having episodes of nausea and vomiting. Patient reported that he had a biopsy on his kidneys while at the hospital. Patient reported that since then patient has been having right flank pain whenever she lies on her right side. Patient currently rates pain as 2/10 in severity and described pain as aching in quality. Patient reported associated signs and symptoms of poor gait, cough, and right-sided weakness. Patient denies any other signs and symptoms. Symptoms are aggravated or relieved by nothing. Patient saw her PCP and was referred to the ER for further management. Allergies codeine Allergy (Unknown, Verified 06/28/15 16:01) Unknown meperidine [From Demerol] Allergy (Unknown, Verified 05/28/20 20:02) Unknown morphine Allergy (Unknown, Verified 05/28/20 20:02) hallucination Sulfa (Sulfonamide Antibiotics) Allergy (Unknown, Verified 05/28/20 20:02) Unknown Home Medications: Atorvastatin Calcium 20 tab PO DAILY 05/29/20 Insulin NPH Hum/Reg Insulin Hm [Novolin 70-30 100 Unit/ml Vial] 6 units SQ BID 6AM 6PM 05/29/20 Losartan Potassium 100 tab PO DAILY 05/29/20 Metformin HCl 1,000 tab PO DAILY 05/29/20 hydroCHLOROthiazide [Hydrochlorothiazide] 25 tab PO DAILY 05/29/20 Amlodipine [Norvasc*] 10 mg PO DAILY 30 Days #30 tab 06/02/20 Docusate [Colace Cap*] 100 mg PO DAILY 30 Days #30 cap 06/02/20 levoFLOXacin [Levaquin*] 750 mg PO DAILY 7 Days #7 tab 06/02/20 Furosemide [Lasix] 20 mg PO BIDL #60 tab 04/11/22 Potassium Chloride [K-Dur] 20 meq PO DAILY #30 04/11/22 carvediloL [Coreg*] 6.25 mg PO BID #60 tab 04/11/22 cloNIDine HCL [Catapres*] 0.1 mg PO BID #60 tab 04/11/22 metOLazone [Zaroxolyn*] 2.5 mg PO M,W,F #18 tab 04/11/22 - Past Medical/Surgical History Diabetic: Yes -: hyperlipidemia -: Hypertension -: Type 2 diabetes -: HLD -: CKD -: partial hysterectomy -: cyst removed from groin -: carpal tunnel repair -: Cholcystectomy - Family History Mother -: Hypertension, Diabetes Brother -: Diabetes Father -: Hypertension, Diabetes - Social History Smoking Status: Never smoker Alcohol use: No CD- Drugs: No Caffeine use: No Place of Residence: Home Review of Systems General: Unremarkable Eyes: Unremarkable ENT: Unremarkable Respiratory: Cough Cardiovascular: Unremarkable Gastrointestinal: Nausea, Vomiting, Other (Right flank pain) Genitourinary: Unremarkable Musculoskeletal: Unremarkable Integumentary: Unremarkable Neurological: Weakness, Other (Poor gait ) Lymphatics: Unremarkable Physical Examination - Physical Exam General: Alert, In no apparent distress, Oriented x3, Cooperative HEENT: Atraumatic, PERRLA, Mucous membr. moist/pink, EOMI, Sclerae nonicteric Neck: Supple, 2+ carotid pulse no bruit, No LAD, Without JVD or thyroid abnormality Respiratory: Clear to auscultation bilaterally, Normal air movement Cardiovascular: No edema, Regular rate/rhythm, Normal S1 S2 Capillary refill: <2 Seconds Gastrointestinal: Normal bowel sounds, Tenderness (Right flank ) Musculoskeletal: No clubbing, No tenderness Integumentary: No rashes Neurological: Normal speech, Normal tone, Normal affect, Abnormal gait, Abnormal strength Lymphatics: No axilla or inguinal lymphadenopathy - Studies Laboratory Data (last 24 hrs) 02/20/23 02/20/23 02/20/23 13:40 13:40 12:33 WBC 6.00 Hgb 9.7 L Hct 29.0 L Plt Count 167 PT 11.3 INR 1.03 Sodium 140 Potassium 3.8 BUN 27 H Creatinine 5.44 H Glucose 143 H Magnesium 2.1 Total Bilirubin 0.2 AST 11 L ALT 18 Alkaline Phosphatase 89 Lipase 18 Microbiology Data (last 24 hrs): 02/20/23 12:44 Nasopharnyx Influenza Type A Antigen Screen - Final 02/20/23 12:44 Nasopharnyx Influenza Type B Antigen Screen - Final Assessment and Plan - Plan -- CVA. CT head indicates No acute intracranial abnormality. Area of subacute ischemic insult suspected measuring 12 mm suspected adjacent to the left frontal horn. MRI Brain findings-- Negative for acute CVA or other acute intracranial process. Continue aspirin, folic acid and statin. Neurology consulted. PT eval and treat. We will await further recommendations. --CKD 5. Patient had a recent biopsy of her kidneys CT abdomen indicates Crescentic isodense right posterior perinephric space collection, measuring 4.6 cm in greatest dimension. This is suggestive of an organizing hematoma in the setting of recent renal biopsy. Patient reports pain in the right flank. We will manage pain with current pain medication regimen. Nephrology Consulted. Renal ultrasound pending. Will await further recommendation from cover cutter. --DM2. BS monitoring with sliding scale insulin. -- UTI POA. Patient placed on antibiotics. Urine cultures pending. --Hyperlipidemia. Continue statin. --Hypertension. Poorly controlled. Continue home medications and hydralazine as needed. --Nausea and vomiting. CT abdomen does not indicate any acute intra-abdominal abnormality. Antiemetics on board. Continue supportive care --Anemia of chronic disease. H&H stable. We will continue to monitor hemoglobin and transfuse if less than 7.0. --DVT prophylaxis with Lovenox subQ Discharge Plan: Home Plan to discharge in: Greater than 2 days - Advance Directives Does patient have a Living Will: No Does patient have a Durable POA for Healthcare: No - Code Status/Comfort Care Code Status Assessed: Yes Physician Review: Patient Assessed, Agree with Above Assessment and Plan Critical Care: No
[2023-02-20] MEDS ORDERED: FOLIC ACID 5 MG/ML VIAL ONE (17:12)
[2023-02-20 17:40] LABS: Specific Gravity 1.015 (1.005-1.030); Urine Bacteria <20 /HPF (<20); Urine Bilirubin NEGATIVE (Negative); Urine Blood Trace (Negative); Urine Clarity Extremely Turbid (Clear); Urine Color Light-Orange (Yellow); Urine Glucose NEGATIVE (Negative); Urine Mucus Slight /HPF (None Seen); Urine Protein 3+ (Negative); Urine RBC <5 /HPF (None Seen); Urine Urobilinogen Normal (Normal); Urine WBC Clump Few /HPF (None Seen); Urine pH 6.5 (5.0-7.0)
[2023-02-20] MEDS: ASPIRIN 81 MG CHEWABLE TABLET PO SCH (18:00)
[2023-02-20] MEDS: ENOXAPARIN 30 MG/0.3 ML SQ SCH (18:00)
[2023-02-20] MEDS: FOLIC ACID 1 MG TABLET PO SCH (18:00)
--- NOTE | 2023-02-20 18:24 | RAD REPORT ---
EXAM DESCRIPTION: MRI - Brain Wo Cont - 02/20/2023 6:12 pm CLINICAL HISTORY: MENTAL STATUS CHANGE Headache, drowsiness, dizziness, mental status change COMPARISON: Head Brain Wo Cont dated 02/20/2023 TECHNIQUE: Multi-sequence, multiplanar MR imaging of the brain was performed without contrast. FINDINGS: No intracranial hemorrhage, hydrocephalus or extra-axial fluid collections.Mild periventri cular and deep white matter chronic microvascular ischemic changes are present. No edema or shift of midline structures. No findings to suspect brain mass. DWI is negative for acute CVA. Midline structures are normally formed. Mastoid air cells and paranasal sinuses are clear. IMPRESSION: Negative for acute CVA or other acute intracranial process.
[2023-02-20] MEDS ORDERED: CEFTRIAXONE 1000 MG/VIAL ONE (19:05)
[2023-02-20] MEDS ORDERED: GLUCAGON 1 MG/VIAL IM PRN (19:07)
[2023-02-20] MEDS ORDERED: D50W 25 GM/50 ML SYRINGE IV PRN (19:07)
--- NOTE | 2023-02-20 19:33 | RAD REPORT ---
EXAM DESCRIPTION: US - Renal Ultrasound-Complete - 02/20/2023 6:52 pm CLINICAL HISTORY: evaluate for renal failure COMPARISON: ABDOMINAL EXAM LIMITED dated 08/18/2015; Chest Abd Pelvis Wo Con dated 02/20/2023 FINDINGS: Both kidneys appear echogenic. The right kidney measures 9.2 x 5.2 x 4.0 cm.. No hydronephrosis or mass. Hypoechoic collection along the perinephric space measuring 3.8 x 1.6 x 1.3 cm compatible with aging hematoma. The left kidney measures 9.8 x 4.2 x 3.6 cm. No hydronephrosis, focal mass or perinephric fluid. The urinary bladder is incompletely distended without gross abnormality seen. IMPRESSION: Echogenic kidneys bilaterally compatible with underlying medical renal disease. Hypoechoic 3.8 cm perinephric collection on the right compatible with aging hematoma.
[2023-02-20] MEDS ORDERED: D10W 125 ML IV PRN (20:19)
[2023-02-20] MEDS: CEFTRIAXONE 1,000 MG in NA CHLORIDE 0.9% 50 ML IVPB SCH (20:50)
[2023-02-20 20:55] VITALS: BMI 28.3
[2023-02-20] MEDS: INSULIN -REGULAR HUMAN 50 UNIT/0.5 ML ML SQ SCH (21:00)
[2023-02-20] MEDS: ATORVASTATIN 40 MG TAB PO SCH (21:08)
[2023-02-20 22:37] LABS: Phosphorus 3.1 mg/dL (2.5-4.9); Thyroid Stimulating Hormone 0.783 uIU/mL (0.358-3.740)
[2023-02-21 03:13] LABS: Absolute Lymphocytes (CBC) 1.9 K/uL (0.7-4.9); Lymphocytes % 33.9 % (15.3-44.8); MCV 90.8 fL (80-100); MPV 8.8 fL (7.6-11.3); Platelets 136 thou/uL (152-406); RBC Red Blood Cell Count 2.65 M/uL (3.86-4.86)
[2023-02-21] MEDS: ONDANSETRON 4 MG/2 ML VIAL IV PRN ×3 (03:34→20:37)
[2023-02-21 03:44] LABS: Potassium 3.4 mEq/L (3.5-5.1)
[2023-02-21] MEDS ORDERED: POTASSIUM CL SA 10 MEQ TAB PO ONE (03:55)
[2023-02-21] MEDS: TRAMADOL HCL 50 MG TAB PO PRN (04:11)
[2023-02-21] MEDS: INSULIN -REGULAR HUMAN 50 UNIT/0.5 ML ML SQ SCH ×4 (07:30→20:38)
--- NOTE | 2023-02-21 07:31 | P.PN ---
Date of Service: 02/21/23 Subjective: Right flank pain continues unchanged +nausea/vomiting, worsened with PO intake Overall been feeling weak recently, possibly worse on R side Denies trouble urinating / UTI symptoms; reports not much urine output symptoms ongoing since discharge from OSH; never improved and continued to get weaker ROS: 10 point ROS as noted above, otherwise negative Physical Exam: GEN: Alert, oriented, fatigued appearing HEENT: Normal conjunctiva, sclera anicteric CV: Regular rate and rhythm, no edema Pulm: Nonlabored respirations on room air, clear bilaterally ABD: Soft, mild-mod R flank tenderness, nondistended Integumentary: No rashes Neuro: fatigued, answers in short sentences, limited due to nausea and participation vitals reviewed Problem List: Nausea and vomiting UTI POA Perinephric Hematoma CKD 5 Generalized weakness IDDM2 Hyperlipidemia Hypertension Anemia of chronic disease nausea/vomiting noted at OSH that had been going on prior to admission, continued during hospita lization and dc'd home on zofran pt states never improved, didn't eat much and got weaker iv zofran prn unclear etiology, BUN elevated but not severe uremia vs hematoma playing a role UTI POA Urine cx (02/20): 4+GNR continue empiric rocephin (02/20-) afebrile without leukocytosis Perinephric Hematoma CKD 5 Patient had a recent biopsy of her R kidney, Patient reports pain in the right flank since biopsy CT abdomen (02/20): Crescentic isodense right posterior perinephric space collection, measuring 4.6 cm in greatest dimension. suggestive of hematoma in the setting of recent renal biopsy Renal u/s (02/20): Hypoechoic 3.8 cm perinephric collection on the right compatible with aging hematoma PRN pain medication Nephrology Consulted. Generalized weakness CT head (02/20): area of subacute ischemic insult suspected measuring 12 mm suspected adjacent to the left frontal horn MRI Brain (02/20): Negative for acute CVA or other acute intracranial process Continue aspirin, folic acid and statin. Neurology consulted. PT consult IDDM2. SSI Hyperlipidemia. Continue statin. Hypertension. Continue home medications and hydralazine PRN Anemia of chronic disease. H&H stable. Continue to monitor VTE: Lovenox Code: Full Dispo: Home, 2-3 days
[2023-02-21] MEDS ORDERED: INFLUENZA VACCINE (for 6+ mo) 0.5 ML DOSE IMVAC ONE (08:00)
[2023-02-21] MEDS: CEFTRIAXONE 1,000 MG in NA CHLORIDE 0.9% 50 ML IVPB SCH (09:10)
[2023-02-21] MEDS: ENOXAPARIN 30 MG/0.3 ML SQ SCH (09:10)
[2023-02-21] MEDS: FOLIC ACID 1 MG TABLET PO SCH (09:11)
[2023-02-21] MEDS: ASPIRIN 81 MG CHEWABLE TABLET PO SCH (09:11)
[2023-02-21] MEDS: HYDRALAZINE HCL 20 MG/ML VIAL IV PRN ×2 (13:31→20:37)
--- NOTE | 2023-02-21 15:09 | EKG ---
Test Date: 2023-02-20 Test Time: 14:03:11 Gear Tester: MEASUREMENT RESULTS: Intervals: Rate: 88 ME: 134 QRSD: 90 QT: 382 QTc: 462 [place]: P: 79 ME: 134 QRS: -32 T: 46 INTERPRETIVE STATEMENTS: Normal sinus rhythm Left axis deviation Abnormal ECG Compared to ECG 02/17/2023 12:17:26 Left-axis deviation now present Electronically Signed On 02-21-23 15:05:34 CDT by Isaiah Hogan
[2023-02-21] MEDS ORDERED: ONDANSETRON 4 MG (ODT) TAB PO PRN (16:55)
[2023-02-21] MEDS: NIFEDIPINE XL 90 MG TABLET PO SCH (17:11)
[2023-02-21] MEDS: carvediloL 25 MG TAB PO SCH (17:56)
[2023-02-21] MEDS: ATORVASTATIN 40 MG TAB PO SCH (20:38)
[2023-02-22 01:16] LABS: Specific Gravity 1.016 (1.005-1.030); Urine Bacteria <20 /HPF (<20); Urine Bilirubin NEGATIVE (Negative); Urine Blood Negative (Negative); Urine Clarity Extremely Turbid (Clear); Urine Color Light-Yellow (Yellow); Urine Crystals Unidentified Few /HPF (None Seen); Urine Glucose 2+ (Negative); Urine Mucus Slight /HPF (None Seen); Urine Protein 3+ (Negative); Urine Urobilinogen Normal (Normal); Urine WBC Clump Occasional /HPF (None Seen)
--- NOTE | 2023-02-22 02:57 | PN ---
Date of Progress Note: 02/21/2023 Chief Complaint: Right flank pain. Subjective: Patient was found to have perinephric hematoma. She has chronic kidney disease stage 5. Renal function is plateauing. The patient has history of hypertension, hyperlipidemia, insulin-dep endent diabetes mellitus. She presented with nausea, vomiting, and decreased p.o. intake. She is ov erall feeling better, although she requires pain medication for right flank pain. She denies trouble voiding. She denies urinary tract symptoms. Urine output has not increased significantly. Review of Systems: Denies chest pain, palpitation. Denies melena, hematemesis. Physical Examination: Lungs: Clear to auscultation bilaterally. Heart: S1, S2. Abdomen: Soft. Extremities: Minimal edema. Impression And Plan: 1.Nausea and vomiting. Continue IV fluids and anti-nausea medication. 2.Perinephric hematoma. Consult Urology. 3.Generalized weakness. Monitor blood pressure closely, adjust medication accordingly. 4.Chronic kidney disease stage 5. Avoid nephrotoxic medication. Monitor for any urinary retention. We will continue Rocephin for empiric coverage of urinary tract infection pending urine culture. 5.Generalized weakness. Workup was done by Primary Team. Neurology consult was requested for gener alized weakness and possible subacute ischemic insult, which was identified on CT scan on January 26 7 and area of subacute ischemic insult, suspected measuring 12 mm was advanced to left frontal horn. 6.Anemia of chronic disease, H and H stable. Continue to monitor. 7.Perinephric hematoma, chronic kidney disease 5. The patient had a recent biopsy done of the right kidney. Patient reports pain in the right flank since biopsy of the kidney. CT scan of the abdomen on February 20 showed crescentic isodense right posterior perinephric space collection measuring 4. 6 cm in grade and dimension, suggestive of hematoma in the setting of recent renal biopsy. Renal ult rasound done on February 20 showed hyperechoic 3.8 cm perinephric collection on the right, compatibl e with aging hematoma. EB/MODL Voice ID: [id number] Report ID: [id number]
[2023-02-22 03:40] LABS: Absolute Lymphocytes (CBC) 1.1 K/uL (0.7-4.9); Hematocrit 26.1 % (36.0-45.0); Lymphocytes % 19.7 % (15.3-44.8); MCV 91.3 fL (80-100); Platelets 147 thou/uL (152-406); RBC Red Blood Cell Count 2.86 M/uL (3.86-4.86)
[2023-02-22 04:14] LABS: Albumin 2.3 g/dL (3.4-5.0); Bilirubin Total 0.2 mg/dL (0.2-1.0); Magnesium 2.1 mg/dL (1.6-2.4); Phosphorus 3.6 mg/dL (2.5-4.9)
[2023-02-22] MEDS: carvediloL 25 MG TAB PO SCH ×2 (05:44→17:58)
[2023-02-22] MEDS: ONDANSETRON 4 MG/2 ML VIAL IV PRN (05:44)
[2023-02-22] MEDS: HYDRALAZINE HCL 20 MG/ML VIAL IV PRN ×2 (05:44→12:43)
--- NOTE | 2023-02-22 07:14 | P.PN ---
Date of Service: 02/22/23 Subjective: nausea/vomiting continues feels some improvement after phenegran this morning abdominal pain slowly improving lost IV access today afebrile ROS: 10 point ROS as noted above, otherwise negative Physical Exam: GEN: Alert, oriented, fatigued appearing HEENT: Normal conjunctiva, sclera anicteric CV: Sinus Tachycardic, no edema Pulm: Nonlabored respirations on room air, clear bilaterally ABD: Soft, mild-mod R flank tenderness, nondistended Integumentary: No rashes Neuro: fatigued, answers in short sentences, limited due to nausea and participation vitals reviewed Problem List: Nausea and vomiting UTI, E. coli Perinephric Hematoma CKD 5 Generalized weakness IDDM2 Hyperlipidemia Hypertension Anemia of chronic disease nausea/vomiting noted at OSH that had been going on prior to admission, continued during hospitalization and dc'd home on zofran pt states never improved, didn't eat much and got weaker iv zofran prn unclear etiology, BUN elevated but not severe uremia vs hematoma playing a role Start phenegran 02/22 UTI, E. coli Urine cx (02/20): E. coli continue rocephin (02/20-) afebrile without leukocytosis Perinephric Hematoma CKD 5 Patient had a recent biopsy of her R kidney, Patient reports pain in the right flank since biopsy CT abdomen (02/20): Crescentic isodense right posterior perinephric space collection, measuring 4.6 cm in greatest dimension. suggestive of hematoma in the setting of recent renal biopsy Renal u/s (02/20): Hypoechoic 3.8 cm perinephric collection on the right compatible with aging hematoma PRN pain medication Nephrology Consulted. Generalized weakness CT head (02/20): area of subacute ischemic insult suspected measuring 12 mm suspected adjacent to the left frontal horn MRI Brain (02/20): Negative for acute CVA or other acute intracranial process Continue aspirin, folic acid and statin. Neurology consulted. PT consult IDDM2. SSI Hyperlipidemia. Continue statin. Hypertension. Continue home medications and hydralazine PRN Anemia of chronic disease. H&H stable. Continue to monitor VTE: Lovenox Code: Full Dispo: Home, 2-3 days
[2023-02-22] MEDS: INSULIN -REGULAR HUMAN 50 UNIT/0.5 ML ML SQ SCH ×4 (07:30→21:00)
[2023-02-22] MEDS: CEFTRIAXONE 1,000 MG in NA CHLORIDE 0.9% 50 ML IVPB SCH (08:30)
[2023-02-22] MEDS: PROMETHAZINE INJ 25 MG/ML AMP IV PRN ×2 (08:30→21:03)
[2023-02-22] MEDS: ENOXAPARIN 30 MG/0.3 ML SQ SCH (08:30)
[2023-02-22] MEDS: HYDRALAZINE HCL 25 MG TABLET PO SCH ×3 (09:00→21:13)
[2023-02-22] MEDS: NIFEDIPINE XL 90 MG TABLET PO SCH (09:00)
[2023-02-22] MEDS: ASPIRIN 81 MG CHEWABLE TABLET PO SCH (09:00)
[2023-02-22] MEDS: FOLIC ACID 1 MG TABLET PO SCH (09:00)
--- NOTE | 2023-02-22 13:14 | P.PN ---
Subjective Date of Service: 02/22/23 Chief Complaint: Nausea and vomiting Physical Examination - Vital Signs Temperature: 98.9 F Blood Pressure: 196/95 Pulse: 103 Respirations: 16 Pulse Ox (%): 96 - Studies Microbiology Data (last 24 hrs): 02/20/23 17:11 Clean Catch Urine [place] Count - Final >100,000 CFU/ML. 02/20/23 17:11 Clean Catch Urine - Final Escherichia Coli Assessment And Plan - Plan # New ESRD 2/2 biopsy-proven DM nephropathy GFR 10 KBx on 02/01/2023 showed DM nephropathy w/ severe IF/TA. True ESRD. No emergent indication for dialysis Start dialysis preparation. preserve the nondominant upper extremity for AV fistula. Avoid BP cuff, avoid blood draws, and avoid intravascular cannulation on that arm. Renal diet Empiric abx for ? UTI # Perinephric hematoma From renal biopsy, monitor # Anemia Follow-up iron panel # Renal osteodystrophy Follow-up serum intact PTH and 25 OHD Monitor calcium and phosphorus # Nausea and vomiting Antiemetics when necessary # Hypertension Continue current medication regimen # DM 2 Management per primary team Physician Review: Patient Assessed, Agree with Above Assessment and Plan
[2023-02-22] MEDS: ATORVASTATIN 40 MG TAB PO SCH (21:10)
[2023-02-23 05:56] LABS: Bilirubin Total 0.2 mg/dL (0.2-1.0); Magnesium 2.1 mg/dL (1.6-2.4); Phosphorus 3.7 mg/dL (2.5-4.9); Potassium 3.7 mEq/L (3.5-5.1); Protein, Total 5.3 g/dL (6.4-8.2)
[2023-02-23] MEDS: carvediloL 25 MG TAB PO SCH ×2 (06:23→17:27)
[2023-02-23] MEDS: INSULIN -REGULAR HUMAN 50 UNIT/0.5 ML ML SQ SCH ×4 (07:30→21:00)
--- NOTE | 2023-02-23 07:51 | P.PN ---
Date of Service: 02/23/23 Subjective: feeling slightly better and now able to have more conversation, reports right sided weakness +R-sided blurry vision have been ongoing for ~3 weeks since shes been at [facility] ~unchanged no acute events overnight tolerated some food yesterday/today with phenegran 100.0 temp this morning ROS: 10 point ROS as noted above, otherwise negative Physical Exam: GEN: Alert, oriented, fatigued appearing HEENT: Normal conjunctiva, sclera anicteric CV: normal rate and rhythm, no edema Pulm: Nonlabored respirations on room air, clear bilaterally ABD: Soft, mild-mod R flank tenderness, nondistended Integumentary: No rashes Neuro: Abnormal Strength (RUE: 3+/5, RLE: 3+/5, LLE: 5/5, LUE: 5/5), R-sided Blurry vision.; visual barragan intact vitals reviewed Problem List: Nausea and vomiting UTI, E. coli Perinephric Hematoma ESRD / CKD5 Right-sided weakness; blurred vision IDDM2 Hyperlipidemia Hypertension Anemia of chronic disease nausea/vomiting noted at OSH that had been going on prior to admission, continued during hospitalization and dc'd home on zofran pt states never improved, didn't eat much and got weaker iv zofran prn switched to phenergan with better relief unclear etiology, BUN elevated but not severe uremia vs hematoma and UTI playing a role continue phenegran UTI, E. coli Urine cx (02/20): E. coli continue rocephin (02/20-) 100.0 temp this morning; no leukocytosis Perinephric Hematoma ESRD, CKD5 Patient had a recent biopsy of her R kidney, Patient reports pain in the right flank since biopsy CT abdomen (02/20): Crescentic isodense right posterior perinephric space collection, measuring 4.6 cm in greatest dimension. suggestive of hematoma in the setting of recent renal biopsy Renal u/s (02/20): Hypoechoic 3.8 cm perinephric collection on the right compatible with aging hematoma PRN pain medication Nephrology Consulted. No emergent indication for dialysis start dialysis prep; preserve nondominant upper extremity for AV fistula Started IV fluids Right-sided weakness, blurred vision CT head (02/20): area of subacute ischemic insult suspected measuring 12 mm suspected adjacent to the left frontal horn MRI Brain (02/20): Negative for acute CVA or other acute intracranial process Continue aspirin, folic acid and statin. Neurology consulted PT consult 02/23 reported right sided weakness +R-sided Blurry vision have been ongoing for ~3 weeks since shes been at [facility] [employer] IDDM2. SSI Hyperlipidemia. Continue statin. Hypertension. Continue home medications and hydralazine PRN Anemia of chronic disease. H&H stable. Continue to monitor VTE: Lovenox Code: Full Dispo: Home, 2-3 days
[2023-02-23 08:55] LABS: Hematocrit 25.1 % (36.0-45.0); Lymphocytes % 37.9 % (15.3-44.8); MCV 91.5 fL (80-100); MPV 8.8 fL (7.6-11.3); Platelets 125 thou/uL (152-406); RBC Red Blood Cell Count 2.75 M/uL (3.86-4.86)
[2023-02-23] MEDS: NIFEDIPINE XL 90 MG TABLET PO SCH (08:57)
[2023-02-23] MEDS: HYDRALAZINE HCL 25 MG TABLET PO SCH ×3 (08:57→22:21)
[2023-02-23] MEDS: ENOXAPARIN 30 MG/0.3 ML SQ SCH (08:57)
[2023-02-23] MEDS: ASPIRIN 81 MG CHEWABLE TABLET PO SCH (08:58)
[2023-02-23] MEDS: CEFTRIAXONE 1,000 MG in NA CHLORIDE 0.9% 50 ML IVPB SCH (08:58)
[2023-02-23] MEDS: FOLIC ACID 1 MG TABLET PO SCH ×2 (08:58→09:00)
[2023-02-23] MEDS ORDERED: POTASSIUM CL SA 10 MEQ TAB PO ONE (09:00)
[2023-02-23] MEDS: NA CHLORIDE 0.9% 1,000 ML IV SCH ×2 (10:30→23:39)
[2023-02-23] MEDS: ATORVASTATIN 40 MG TAB PO SCH (22:31)
--- NOTE | 2023-02-24 01:36 | PN ---
Date of Progress Note: 02/23/2023 Subjective: The patient stated she has nausea, vomiting, generalized weakness, and flank pain. She was found to have urinary tract infection with E. coli and she is on antibiotic. She underwent kidne y biopsy on February 01, 2023 which showed diabetic nephropathy. The patient has chronic kidney dise ase stage 5 advancing to end-stage renal disease. The patient does not have uremic symptomatology, a lthough she will need to start dialysis in near future. The patient may need to have upper extremity AV fistula created when her blood culture and urine culture are negative. Review of Systems: Denies chest pain, palpitation. Physical Examination: Lungs: Clear to auscultation bilaterally. Heart: S1-S2. Abdomen: Soft, benign. Extremities: Minimal peripheral edema. Impression And Plan: 1.End-stage renal disease secondary to diabetic nephropathy, and kidney biopsy showed robert betic nephropathy with severe interstitial fibrosis and tubular atrophy. The patient has end-stage r enal disease without uremic symptomatology. She needs to start preparation for future dialysis and s he will have referral for upper extremity AV fistula, otherwise she may need to start dialysis via tu nneled dialysis catheter. Continue renal diet. 2.UTI. Antibiotics per primary team. 3.Perinephric hematoma from renal biopsy. Monitor. 4.Anemia due to chronic kidney disease. Follow up iron panel and check for any evidence of iron def iciency anemia. 5.Renal osteodystrophy. Follow up serum intact PTH and 25-hydroxy vitamin D. Monitor calcium and p hosphorus level. Start vitamin D analog accordingly. 6.Nausea, vomiting. Continue antiemetics and start mild hydration with IV fluids today. 7.Hypertension. Continue current medication. 8.Diabetes mellitus per primary team. Recommend to continue insulin according to glycemia. EB/MODL Voice ID: [id number] Report ID: [id number]
[2023-02-24 04:26] LABS: Absolute Lymphocytes (CBC) 2.6 K/uL (0.7-4.9); Hematocrit 23.6 % (36.0-45.0); Lymphocytes % 41.6 % (15.3-44.8); MCV 91.4 fL (80-100); MPV 9.4 fL (7.6-11.3); Platelets 122 thou/uL (152-406); RBC Red Blood Cell Count 2.58 M/uL (3.86-4.86)
[2023-02-24 04:45] LABS: ALT/SGPT 14 U/L (13-56); AST/SGOT 8 U/L (15-37); Alkaline Phosphatase 77 U/L (45-117); BUN Blood Urea Nitrogen 31 mg/dL (7-18); Bicarbonate 30 mEq/L (21-32); Glomerular Filtration Rate 10 ml/min (=/>90); Glucose Level 132 mg/dL (74-106); Magnesium 1.9 mg/dL (1.6-2.4); Phosphorus 2.4 mg/dL (2.5-4.9); Potassium 3.6 mEq/L (3.5-5.1); Protein, Total 5.2 g/dL (6.4-8.2); Sodium Level 141 mEq/L (136-145)
[2023-02-24 04:51] LABS: Bilirubin Total < 0.1 mg/dL (0.2-1.0)
[2023-02-24] MEDS: carvediloL 25 MG TAB PO SCH ×2 (06:00→17:12)
--- NOTE | 2023-02-24 07:17 | P.PN ---
Date of Service: 02/24/23 Subjective: Feels a little bit of improvement today able to tolerate some lunch / dinner yesterday; slightly improved last episode of vomiting ~2 days ago R-sided strength slightly improved today afebrile ROS: 10 point ROS as noted above, otherwise negative Physical Exam: GEN: Alert, oriented, fatigued appearing HEENT: Normal conjunctiva, sclera anicteric CV: normal rate and rhythm, no edema Pulm: Nonlabored respirations on room air, clear bilaterally ABD: Soft, mild-mod R flank tenderness, nondistended Integumentary: No rashes Neuro: Abnormal Strength (RUE: 3+/5, RLE: 3+/5, LLE: 5/5, LUE: 5/5), R-sided Blurry vision; visual barragan intact vitals reviewed Problem List: Nausea and vomiting UTI, E. coli Perinephric Hematoma ESRD / CKD5 Right-sided weakness; blurred vision Iron deficiency anemia Hypertension IDDM2 Hyperlipidemia Anemia of chronic disease nausea/vomiting noted at OSH that had been going on prior to admission, continued during hospitalization and dc'd home on zofran pt states never improved, didn't eat much and got weaker iv zofran prn switched to phenergan with better relief unclear etiology, BUN elevated but not severe uremia vs hematoma and UTI playing a role continue phenegran improving - last episode of vomiting ~2 days ago UTI, E. coli Urine cx (02/20): E. coli continue rocephin (02/20-) afebrile; no leukocytosis Perinephric Hematoma ESRD / CKD5 Patient had a recent biopsy of her R kidney, Patient reports pain in the right flank since biopsy CT abdomen (02/20): Crescentic isodense right posterior perinephric space collection, measuring 4.6 cm in greatest dimension. suggestive of hematoma in the setting of recent renal biopsy Renal u/s (02/20): Hypoechoic 3.8 cm perinephric collection on the right compatible with aging hematoma repeat CT abdomen (02/24): ordered to f/u hematoma PRN pain medication Nephrology Consulted. NPO after midnight Dr. Lopez consulted for tunneled HD insertion - tentative 02/24 Right-sided weakness, blurred vision CT head (02/20): area of subacute ischemic insult suspected measuring 12 mm suspected adjacent to the left frontal horn MRI Brain (02/20): Negative for acute CVA or other acute intracranial process Continue aspirin, folic acid and statin Neurology consulted PT consult 02/23 reported right sided weakness +R-sided Blurry vision have been ongoing for ~3 weeks since shes been at [facility] Iron deficiency anemia iron studies 02/24 consistent with iron deficiency anemia Monitor H&H. hgb 8.5 -> 7.9 (02/24) nephro initially requested 1uPRBC on 02/24, however cancelled hematoma slightly improved Hypertension Continue home medications as appropriate hydralazine dc'd nifedepine decreased to 30 mg PO daily (02/24) IDDM2. SSI Hyperlipidemia. Continue statin. Anemia of chronic disease. H&H stable. Continue to monitor VTE: Lovenox dc'd 02/24 Code: Full Dispo: Home, 3-4 days HD cath placement 02/25, HD, and will need chair time
[2023-02-24] MEDS: INSULIN -REGULAR HUMAN 50 UNIT/0.5 ML ML SQ SCH ×4 (07:30→21:00)
[2023-02-24] MEDS ORDERED: POTASSIUM CL SA 10 MEQ TAB PO ONE (09:00)
[2023-02-24] MEDS: FOLIC ACID 1 MG TABLET PO SCH (09:00)
[2023-02-24] MEDS: ENOXAPARIN 30 MG/0.3 ML SQ SCH (09:05)
[2023-02-24] MEDS: ASPIRIN 81 MG CHEWABLE TABLET PO SCH (09:05)
[2023-02-24] MEDS: NIFEDIPINE XL 90 MG TABLET PO SCH (09:05)
[2023-02-24] MEDS: CEFTRIAXONE 1,000 MG in NA CHLORIDE 0.9% 50 ML IVPB SCH (09:07)
[2023-02-24] MEDS ORDERED: NA CHLORIDE 0.9% 250 ML IV SCH (10:00)
[2023-02-24 11:54] LABS: Protime INR 1.01
--- NOTE | 2023-02-24 12:20 | RAD REPORT ---
EXAM DESCRIPTION: CT - Stone Protocol - 02/24/2023 11:47 am CLINICAL HISTORY: anemia, f/u perinephric hematoma COMPARISON: Stone Protocol dated 05/30/2022; Abdomen Pelvis W Contrast dated 06/01/2020; Stone Protoco l dated 05/28/2020; Stone Protocol dated 09/22/2017; Renal Ultrasound-Complete dated 02/20/2023; Chest Ab d Pelvis Wo Con dated 02/20/2023 TECHNIQUE: Thin cut axial CT imaging of the abdomen and pelvis was performed without IV contrast. Mu ltiplanar reformats were generated and reviewed. All CT scans are performed using dose optimization technique as appropriate and may include automated exposure control or mA/KV adjustment according to patient size. FINDINGS: No suspicious findings in the lung bases. Mild pericardial effusion. The liver, spleen, and adrenal glands show no suspicious findings. Gallbladder was surgically removed . New peripancreatic fat stranding along the pancreatic head and body, without evidence of complication s on this noncontrast CT. Symmetric renal contour, mildly decreased size of the right nephric hematoma now measuring 4.2 x 1.3 cm in greatest axial dimensions, previously measured 4.4 x 1.6 cm. No evidence of radiopaque calculi or hydroureteronephrosis. No dilated bowel loops or bowel wall thickening. No free air, free fluid or inflammatory stranding. N o hernia, mass or bulky lymphadenopathy. The urinary bladder is suboptimally distended limiting evalu ation. No suspicious bony findings. IMPRESSION: New peripancreatic fat stranding, which may relate to ongoing acute pancreatitis. Please correlate with pancreatic enzyme levels. Slight interval decrease in size of the right perinephric hematoma now measuring 4.2 x 1.3 cm in grea test axial dimensions. Trace pericardial effusion. The findings were communicated to Vinay Jordan on 02/24/2023 at 12:15 hours.
[2023-02-24] MEDS: NA CHLORIDE 0.9% 1,000 ML IV SCH (13:41)
[2023-02-24] MEDS: ATORVASTATIN 40 MG TAB PO SCH (21:12)
--- NOTE | 2023-02-24 23:14 | PN ---
Date of Progress Note: 02/24/2023 Chief Complaint: Advanced chronic kidney disease, perinephric hematoma. Subjective: The patient stated she had nausea, vomiting, although she was medicated for nausea and v omiting and received medications for pain control. The patient had renal biopsy done on January h, which showed diabetic nephropathy. The patient has history of chronic kidney disease stage 5, adv ancing to end-stage renal disease. The patient does not have uremic symptomatology. The patient may need to have AV fistula creation. Review of Systems: Denies chest pain, palpitation. Objective: Lungs: Clear to auscultation bilaterally. Heart: S1, S2. Abdomen: Soft. Extremities: No edema. Impression And Plan: 1.Chronic kidney disease. Avoid nephrotoxic medication. Patient has end-stage renal disease second bridgette to diabetic nephropathy. Kidney biopsy showed diabetic nephropathy with severe interstitial fibr osis and tubular atrophy. Patient is to start preparation for dialysis and patient may need tunneled catheter placed during this admission. 2.Urinary tract infection. Antibiotic per primary team. 3.Perinephric hematoma. Monitor H and H. CT scan was retried to rule out obstructive uropathy celeste ges. 4.Hypertension. Continue blood pressure medication. 5.Diabetes mellitus. Plan per primary team. TRAVON/JU Voice ID: [id number] Report ID: [id number]
[2023-02-25 03:04] LABS: Absolute Lymphocytes (CBC) 2.2 K/uL (0.7-4.9); Hematocrit 22.7 % (36.0-45.0); Lymphocytes % 38.6 % (15.3-44.8); MCV 91.2 fL (80-100); MPV 9.5 fL (7.6-11.3); Platelets 122 thou/uL (152-406); RBC Red Blood Cell Count 2.48 M/uL (3.86-4.86)
[2023-02-25 03:05] LABS: Protime INR 1.05
[2023-02-25 03:35] LABS: Albumin 2.1 g/dL (3.4-5.0); Bilirubin Total 0.1 mg/dL (0.2-1.0); Magnesium 1.8 mg/dL (1.6-2.4); Phosphorus 2.6 mg/dL (2.5-4.9); Potassium 3.7 mEq/L (3.5-5.1); Protein, Total 5.3 g/dL (6.4-8.2)
[2023-02-25] MEDS: carvediloL 25 MG TAB PO SCH ×2 (05:25→17:13)
[2023-02-25] MEDS: NA CHLORIDE 0.9% 1,000 ML IV SCH ×2 (05:26→15:20)
--- NOTE | 2023-02-25 07:10 | P.PN ---
Date of Service: 02/25/23 Subjective: Feeling better today strength/vision ~same tolerating diet afebrile ROS: 10 point ROS as noted above, otherwise negative Physical Exam: GEN: Alert, oriented, NAD HEENT: Normal conjunctiva, sclera anicteric CV: normal rate and rhythm, no edema Pulm: Nonlabored respirations on room air, clear bilaterally ABD: Soft, mild R flank tenderness, nondistended Integumentary: No rashes Neuro: Abnormal Strength (RUE: 3+/5, RLE: 3+/5, LLE: 5/5, LUE: 5/5), R-sided Blurry vision; visual barragan intact vitals reviewed Problem List: Nausea and vomiting UTI, E. coli Perinephric Hematoma ESRD / CKD5 Right-sided weakness; blurred vision Iron deficiency anemia Hypertension IDDM2 Hyperlipidemia Anemia of chronic disease nausea/vomiting noted at OSH that had been going on prior to admission, continued during hospitalization and dc'd home on zofran pt states never improved, didn't eat much and got weaker iv zofran prn switched to phenergan with better relief unclear etiology, BUN elevated but not severe uremia vs hematoma and UTI playing a role continue phenegran improving UTI, E. coli Urine cx (02/20): E. coli continue rocephin (02/20-) afebrile; no leukocytosis Perinephric Hematoma ESRD / CKD5 Patient had a recent biopsy of her R kidney, Patient reports pain in the right flank since biopsy CT abdomen (02/20): Crescentic isodense right posterior perinephric space collection, measuring 4.6 cm in greatest dimension. suggestive of hematoma in the setting of recent renal biopsy Renal u/s (02/20): Hypoechoic 3.8 cm perinephric collection on the right compatible with aging hematoma repeat CT abdomen (02/24): ordered to f/u hematoma PRN pain medication Nephrology Consulted. Dr. Lopez consulted NPO for tentative tunneled HD insertion (02/25) Dialysis per nephrology after cath inserted; will need chair time Right-sided weakness, blurred vision CT head (02/20): area of subacute ischemic insult suspected measuring 12 mm suspected adjacent to the left frontal horn MRI Brain (02/20): Negative for acute CVA or other acute intracranial process Continue aspirin, folic acid and statin Neurology consulted PT consult 02/23 reported right sided weakness +R-sided Blurry vision have been ongoing for ~3 weeks since shes been at [facility] Iron deficiency anemia iron studies 02/24 consistent with iron deficiency anemia Monitor H&H. hgb 7.9 -> 7.7 (02/25) nephro initially requested 1uPRBC on 02/24, however cancelled hematoma slightly improved Hypertension Continue home medications as appropriate hydralazine dc'd nifedepine decreased to 30 mg PO daily (02/24) IDDM2. SSI Hyperlipidemia. Continue statin. Anemia of chronic disease. H&H stable. Continue to monitor VTE: Lovenox dc'd 02/24 Code: Full Dispo: Home, 3-4 days pending HD cath placement, HD, and will need chair time
[2023-02-25] MEDS: INSULIN -REGULAR HUMAN 50 UNIT/0.5 ML ML SQ SCH ×4 (07:30→20:39)
[2023-02-25] MEDS: ASPIRIN 81 MG CHEWABLE TABLET PO SCH (09:00)
[2023-02-25] MEDS: FOLIC ACID 1 MG TABLET PO SCH (09:00)
[2023-02-25] MEDS: NIFEDIPINE XL 90 MG TABLET PO SCH ×2 (09:00)
[2023-02-25] MEDS: CEFTRIAXONE 1,000 MG in NA CHLORIDE 0.9% 50 ML IVPB SCH (09:01)
[2023-02-25] MEDS: NIFEDIPINE XL 30 MG TABLET PO SCH (10:17)
[2023-02-25] MEDS ORDERED: ONDANSETRON 4 MG/2 ML VIAL ONE (10:35)
[2023-02-25] MEDS ORDERED: LIDOCAINE 1% MPF 2 ML AMPULE ONE (10:35)
[2023-02-25] MEDS ORDERED: FENTANYL CITR 100 MCG/2 ML ONE ×2 (10:35→11:20)
[2023-02-25] MEDS ORDERED: propofoL 200 MG/20 ML VIAL IV ONE ×2 (10:35→11:16)
[2023-02-25] MEDS ORDERED: NA CHLORIDE 0.9% 500 ML ONE (10:40)
[2023-02-25] MEDS ORDERED: NS 0.9% VIAL 10 ML ONE (11:16)
[2023-02-25] MEDS ORDERED: HEPARIN 5000 UNIT/ML 1 ML VIAL ONE (11:17)
[2023-02-25] MEDS ORDERED: LIDOCAINE 1% MPF 30 ML VIAL ONE (11:17)
[2023-02-25] MEDS ORDERED: NA CHLORIDE 0.9% 100 ML ONE (11:17)
[2023-02-25] MEDS ORDERED: MIDAZOLAM HCL 2 MG/2 ML INJ ONE (11:20)
--- NOTE | 2023-02-25 12:10 | P.BOP ---
Preoperative diagnosis: renal failure Postoperative diagnosis: same Primary procedure: 1. Placement of Cuffed hemodialysis catheter Secondary procedure: 2. Interpretation of fluoroscopy Other procedure(s): 3. Right neck ultrasound Estimated blood loss: <10cc Specimen: none Findings: comnpressible jugular Anesthesia: MAC Complications: None Implants: hemosplit Transferred to: Recovery Room Condition: Good
--- NOTE | 2023-02-25 12:42 | RAD REPORT ---
EXAM DESCRIPTION: RAD - Fluoroscopy <1 Hour - 02/25/2023 12:17 pm CLINICAL HISTORY: Device placement central venous catheter placement FINDINGS: A central venous catheter was placed. One limb lies within the SVC, the other the proximal right atrium. Six fluoroscopic spot images are submitted. Fluoroscopy time 0.4 minutes The examination was performed by Dr. Lopez
--- NOTE | 2023-02-25 12:43 | RAD REPORT ---
EXAM DESCRIPTION: Wilfredt Single View02/25/2023 12:31 pm CLINICAL HISTORY: Device placement/central venous catheter placement IMPRESSION: Central venous catheter with 1 limb in the superior vena cava the other 1 centimeter int o the right atrium No pneumothorax
[2023-02-25 14:33] LABS: Hepatitis B Core Ab, Total Nonreactive (Nonreactive); Hepatitis B Surface Ab - Quant 49.33 mIU/mL (<8.0)
--- NOTE | 2023-02-25 15:34 | CON ---
Date of Consultation: 02/25/2023 Diagnosis: Renal failure. Consult for placement of hemodialysis catheter. History Of Present Illness: This is a case of a 53-year-old patient with multiple medical history in cluding diabetes, chronic kidney disease, hypertension, apparently CVA, seen about a month ago at [facility]. Then, after that eventually she managed to come to this institution in the last fe w days, found to have a complaint of nausea and vomiting and found to have acute kidney failure and a surgical consult was done today for placement of hemodialysis since they want to start hemodialysis today. Allergies: CODEINE, MEPERIDINE, MORPHINE, SULFA. Medications: Include insulin, losartan, Lasix, Coreg, zaroxolyn, Levaquin, Colace, Norvasc. Medical History: As above. Past Surgical History: Includes partial hysterectomy, cholecystectomy, carpal tunnel, cyst removed f rom the right groin. Family History: Includes hypertension, diabetes. Social History: She does not smoke. She does not drink alcohol. Review of Systems: Nausea. See HPI. Ten points otherwise unremarkable. Physical Examination: General: The patient is awake, alert. No distress. Oriented x3. HEENT: Pupils are equal and reactive. Anicteric. Neck: Supple. No JVD. Heart: S1, S2. Abdomen: Soft and depressible. There is some tenderness in the right flank. The patient recently h ad a biopsy of the kidney. Extremities: Full range of motion x4. Neurological: Normal speech. Apparently, the patient has some residual gait and strength abnormalit ies. Laboratory Data: Blood work shows WBC count of 5.7, hemoglobin of 7.7, INR is 1.05, chloride is 112, creatinine is 4.45, glucose 129, BUN is 30. Assessment: This is a 53-year-old patient in need of hemodialysis catheter. The benefits, alternati ves, and risks of placement on the fluoroscopy fully explained, which include, but not limited to inf ection, bleeding, damage to adjacent structures, anesthesia complication, pneumothorax, hemothorax, p ulmonary embolism, endocarditis, breaking of the catheter, deep venous thromboses, myocardial infarct ion, even . She also understands this is a temporary catheter as soon as renal service defines her future of a hemodialysis or not. If it is not needed, she was asked to come to our office to rem ove it as soon as possible. She understood the importance of keeping the area clean and also we scru bbed her areas and that she can identify in case the catheter is not working properly. ANOOP/JU Voice ID: [id number] Report ID: [id number]
[2023-02-25] MEDS ORDERED: TRAMADOL HCL 50 MG TAB PO PRN (20:33)
[2023-02-25] MEDS: TRAMADOL HCL 50 MG TAB PO PRN (20:39)
[2023-02-25] MEDS: ATORVASTATIN 40 MG TAB PO SCH (20:39)
[2023-02-25] MEDS ORDERED: EPOETIN ALFA 10,000 UNIT/ML VIAL IV SCH (21:00)
[2023-02-25 21:39] VITALS: O2SAT 96
--- NOTE | 2023-02-25 22:55 | PN ---
Subjective: This is a followup from the surgery this morning. Since patient was having some pain in the right insertion site, patient was evaluated. Objective: Vital Signs: Stable. Skin: Catheter is intact. No bleeding. No hematomas. She is just tender at the area of the insert ion site. Lungs: No shortness of breath. No chest pain. No JVD. Plan: Continue observation. We just talked to her that when she is walking around, try not to move the neck too much. Since this is moving, the recently placed catheter may create some swelling or ev en hematoma. ANOOP/MODL Voice ID: [id number] Report ID: [id number]
--- NOTE | 2023-02-26 00:01 | PN ---
Date of Progress Note: 02/25/2023 Chief Complaint: Advanced chronic kidney disease, stage 5; perinephric hematoma. Subjective: Patient stated she had some nausea, vomiting, though it resolved. Patient is tolerating the p.o. intake. The patient underwent renal biopsy on February 01, which showed diabetic nephropat hy. Patient agreed to start hemodialysis during this admission. She does not have uremic symptomato logy. Patient will need AV fistula creation in the future, although due to progressively worse kidne y function, patient will start hemodialysis via tunneled dialysis catheter and tunneled dialysis cath eter placement is scheduled for today. Review of Systems: Denies chest pain, palpitation. Physical Examination: Lungs: Diminished at bases. Heart: S1, S2. Abdomen: Soft. Extremities: No edema. Impression And Plan: 1.Chronic kidney disease, end-stage renal disease. Avoid nephrotoxic medication. Patient will star t hemodialysis tomorrow via tunneled dialysis catheter. Biopsies showed diabetic nephropathy with se sourav interstitial fibrosis and tubular atrophy. Patient is to start preparation for dialysis and pat ient will continue dialysis via tunneled dialysis catheter. 2.Urinary tract infection. Antibiotic per primary team. 3.Perinephric hematoma. Monitor hemoglobin and hematocrit. 4.Hypertension. Continue blood pressure medication. 5.Diabetes mellitus. Continue insulin. 6.Perinephric hematoma. CT scan was done to rule out obstructive uropathy changes and hematoma is s table. TRAVON/NANIL Voice ID: [id number] Report ID: [id number]
[2023-02-26] MEDS: NA CHLORIDE 0.9% 1,000 ML IV SCH (02:28)
[2023-02-26] MEDS: carvediloL 25 MG TAB PO SCH ×2 (06:09→17:07)
[2023-02-26 07:11] LABS: Absolute Lymphocytes (CBC) 1.9 K/uL (0.7-4.9); Hematocrit 24.9 % (36.0-45.0); Lymphocytes % 31.7 % (15.3-44.8); MCV 91.8 fL (80-100); MPV 9.1 fL (7.6-11.3); Platelets 134 thou/uL (152-406); RBC Red Blood Cell Count 2.71 M/uL (3.86-4.86)
[2023-02-26 07:27] LABS: Albumin 2.1 g/dL (3.4-5.0); Bilirubin Total 0.1 mg/dL (0.2-1.0); Ferritin 88.5 ng/mL (8-388); Potassium 4.1 mEq/L (3.5-5.1); Protein, Total 5.6 g/dL (6.4-8.2)
[2023-02-26] MEDS: INSULIN -REGULAR HUMAN 50 UNIT/0.5 ML ML SQ SCH ×4 (07:30→21:00)
[2023-02-26 08:06] LABS: Hepatitis B Surface Ab - Quant 54.13 mIU/mL (<8.0); Hepatitis B surface AG Interp. Nonreactive (Nonreactive)
[2023-02-26] MEDS: NIFEDIPINE XL 30 MG TABLET PO SCH (08:20)
[2023-02-26] MEDS: ASPIRIN 81 MG CHEWABLE TABLET PO SCH (08:20)
[2023-02-26] MEDS: FOLIC ACID 1 MG TABLET PO SCH (08:20)
[2023-02-26] MEDS: CEFTRIAXONE 1,000 MG in NA CHLORIDE 0.9% 50 ML IVPB SCH (08:20)
[2023-02-26] MEDS ORDERED: FENTANYL CITR 100 MCG/2 ML IV PRN (08:49)
[2023-02-26] MEDS: PROMETHAZINE INJ 25 MG/ML AMP IV PRN (14:22)
--- NOTE | 2023-02-26 14:52 | P.PN ---
Subjective Date of Service: 02/26/23 Chief Complaint: Nausea and vomiting Patient denied any pain during my examination. No issues overnight. Blood pressure was significantly elevated this morning. Physical Examination - Vital Signs Temperature: 97.5 F Blood Pressure: 143/81 Pulse: 80 Respirations: 18 Pulse Ox (%): 96 Assessment And Plan - Plan Physical Exam: GEN: Alert, oriented, NAD HEENT: Normal conjunctiva, sclera anicteric CV: normal rate and rhythm, no edema Pulm: Nonlabored respirations on room air, clear bilaterally ABD: Soft, nondistended, nontender Integumentary: No rashes Neuro: R-sided Blurry vision; visual barragan intact. Mild right-sided weakness. vitals reviewed Diagnosis Nausea and vomiting UTI, E. coli Perinephric Hematoma ESRD / CKD5 Right-sided weakness; blurred vision Iron deficiency anemia Hypertension IDDM2 Hyperlipidemia Anemia of chronic disease Nausea/vomiting Antiemetics as needed Could be secondary to UTI improving. Advance diet as tolerated. UTI, E. coli Urine cx (02/20): E. coli afebrile; no leukocytosis Patient completed 7 days of IV Rocephin today. Perinephric Hematoma ESRD / CKD5 Patient had a recent biopsy of her R kidney, Patient reports pain in the right flank since biopsy CT abdomen (02/20): Crescentic isodense right posterior perinephric space collection, measuring 4.6 cm in greatest dimension. suggestive of hematoma in the setting of recent renal biopsy Renal u/s (02/20): Hypoechoic 3.8 cm perinephric collection on the right compatible with aging hematoma repeat CT abdomen (02/24): Slightly improved right perinephric hematoma. PRN pain medication Nephrology Consulted. Dr. Lopez consulted Tunneled HD insertion (02/25) Dialysis per nephrology after cath inserted. Patient scheduled for dialysis today. Right-sided weakness, blurred vision CT head (02/20): area of subacute ischemic insult suspected measuring 12 mm suspected adjacent to the left frontal horn MRI Brain (02/20): Negative for acute CVA or other acute intracranial process Continue aspirin, folic acid and statin Neurology consulted Continue PT 02/23 reported right sided weakness +R-sided Blurry vision have been ongoing for ~3 weeks since shes been at [facility] [place] Iron deficiency anemia iron studies 02/24 consistent with iron deficiency anemia Monitor H&H. hgb 7.9 -> 7.7 (02/25) Monitor and transfuse as needed for hemoglobin less than 7. Hypertension Continue home medications as appropriate hydralazine dc'd Adjust nifedipine back to 60 mg daily due to uncontrolled BP. IDDM2. SSI Hyperlipidemia. Continue statin. Anemia of chronic disease. H&H stable. Continue to monitor VTE: SCD Code: Full Dispo: Home pending outpatient hemodialysis arrangement.
[2023-02-26] MEDS ORDERED: SOD FERRIC GLUC COMPLX/SUCROSE 125 MG in NA CHLORIDE 0.9% 100 ML IV SCH (15:00)
--- NOTE | 2023-02-26 17:58 | PN ---
Date of Progress Note: 02/26/2023 Subjective: The patient was admitted to the hospital with CVA. The patient had a kidney biopsy, fou nd to have a chronic kidney disease. Physical Examination: Vital Signs: Blood pressure 143/81, pulse of 80, afebrile. Chest: Clear to auscultation. Heart: S1, S2. Regular. Abdomen: Soft, nontender. Extremity: No edema. Neuro: Weakness, hemiplegia. Laboratory Data: Hemoglobin 8.3. Sodium 143, potassium 4.1, bicarb 26, BUN 26, creatinine 3.5, calc ium 8. Iron saturation 16, ferritin 88. Current Medications: The patient on include; 1.Aspirin. 2.Ceftriaxone. 3.Epogen. 4.Carvedilol 25 b.i.d. 5.Atorvastatin. 6.Nifedipine. 7.Folic acid. 8.IV fluid. Assessment And Plan: 1.End-stage renal disease, dialysis dependent. The patient was started on dialysis. I am going to continue to dialysis. We will follow up the patient. I had discussion with the patient. The patien t in favor of home dialysis. We will refer. 2.Iron deficiency anemia. We will start the patient on IV iron. 3.Anemia of chronic kidney disease. We will start Retacrit. 4.Hypertension with cerebrovascular accident. Continue current treatment. We will consider starting HODAN inhibitor or ARB. Discontinue IV fluid. LUISA Voice ID: [id number] Report ID: [id number]
[2023-02-26] MEDS: ATORVASTATIN 40 MG TAB PO SCH (21:14)
[2023-02-27] MEDS: HYDRALAZINE HCL 20 MG/ML VIAL IV PRN (04:53)
[2023-02-27] MEDS: carvediloL 25 MG TAB PO SCH (06:27)
[2023-02-27 06:42] LABS: Absolute Lymphocytes (CBC) 1.7 K/uL (0.7-4.9); Hematocrit 24.4 % (36.0-45.0); Lymphocytes % 29.4 % (15.3-44.8); MCV 91.3 fL (80-100); MPV 9.1 fL (7.6-11.3); Platelets 134 thou/uL (152-406); RBC Red Blood Cell Count 2.67 M/uL (3.86-4.86)
[2023-02-27 07:00] LABS: Phosphorus 2.7 mg/dL (2.5-4.9); Potassium 3.9 mEq/L (3.5-5.1)
[2023-02-27] MEDS: INSULIN -REGULAR HUMAN 50 UNIT/0.5 ML ML SQ SCH ×2 (07:30→11:30)
[2023-02-27] MEDS: NIFEDIPINE XL 30 MG TABLET PO SCH (09:20)
[2023-02-27] MEDS: ASPIRIN 81 MG CHEWABLE TABLET PO SCH (09:20)
[2023-02-27] MEDS: FOLIC ACID 1 MG TABLET PO SCH (09:21)
[2023-02-27 12:37] VITALS: BP 116/58; TEMP 98
--- NOTE | 2023-02-27 14:06 | P.PN ---
Subjective Date of Service: 02/27/23 Chief Complaint: Nausea and vomiting Patient has no new complaint. Blood pressure readings have been labile. Physical Examination - Vital Signs Temperature: 98.0 F Blood Pressure: 116/58 Pulse: 93 Respirations: 20 Pulse Ox (%): 99 Assessment And Plan - Plan Physical Exam: GEN: Alert, oriented, NAD CV: normal rate and rhythm, no edema Pulm: Nonlabored respirations on room air, clear bilaterally ABD: Soft, nondistended, nontender Integumentary: No rashes Neuro: R-sided Blurry vision; visual barragan intact. Mild right-sided weakness. vitals reviewed Diagnosis Nausea and vomiting UTI, E. coli Perinephric Hematoma ESRD / CKD5 Right-sided weakness; blurred vision Iron deficiency anemia Hypertension IDDM2 Hyperlipidemia Anemia of chronic disease Nausea/vomiting Antiemetics as needed improved Patient is tolerating diet. UTI, E. coli Urine cx (02/20): E. coli afebrile; no leukocytosis Patient completed 7 days of IV Rocephin. Perinephric Hematoma ESRD / CKD5 Patient had a recent biopsy of her R kidney, Patient reports pain in the right flank since biopsy CT abdomen (02/20): Crescentic isodense right posterior perinephric space collection, measuring 4.6 cm in greatest dimension. suggestive of hematoma in the setting of recent renal biopsy Renal u/s (02/20): Hypoechoic 3.8 cm perinephric collection on the right compatible with aging hematoma repeat CT abdomen (02/24): Slightly improved right perinephric hematoma. PRN pain medication Nephrology Consulted. Dr. Lopez consulted Tunneled HD insertion (02/25) Dialysis per nephrology. Right-sided weakness, blurred vision CT head (02/20): area of subacute ischemic insult suspected measuring 12 mm suspected adjacent to the left frontal horn MRI Brain (02/20): Negative for acute CVA or other acute intracranial process Continue aspirin, folic acid and statin Neurology consulted Continue PT 02/23 reported right sided weakness +R-sided Blurry vision have been ongoing for ~3 weeks since shes been at [facility] [employer] Iron deficiency anemia iron studies 02/24 consistent with iron deficiency anemia Monitor H&H. hgb 7.9 -> 7.7 (02/25) Monitor and transfuse as needed for hemoglobin less than 7. Hypertension Continue home medications as appropriate hydralazine dc'd Adjusted nifedipine back to 60 mg daily due to uncontrolled BP. IDDM2. SSI Hyperlipidemia. Continue statin. Anemia of chronic disease. H&H stable. Continue to monitor VTE: SCD Code: Full Dispo: Home pending outpatient hemodialysis arrangement.
--- NOTE | 2023-02-27 14:52 | P.DS ---
Admission Date: 02/20/23 Discharge Date: 02/27/23 Disposition: ROUTINE DISCHARGE Discharge Condition: FAIR Reason for Admission: Nausea and vomiting Brief History of Present Illness: Patient is a 53-year-old female with a past medical history significant for DM 2, CKD, hypertension, HLD who presented with complaint of nausea and vomiting. Patient reported that she was discharged from [facility] on February 03, 2023 and ever since patient has been having episodes of nausea and vomiting. Patient reported that he had a biopsy on his kidneys while at the hospital. Patient reported right flank pain whenever she lies on her right side. Patient reported associated signs and symptoms of poor gait, cough, and right-sided weakness. Patient denies any other signs and symptoms. Symptoms are aggravated or relieved by nothing. Patient saw her PCP and was referred to the ER for further management. Hospital Course: Diagnosis Nausea and vomiting UTI, E. coli Perinephric Hematoma ESRD / CKD5 Right-sided weakness; blurred vision Iron deficiency anemia Hypertension IDDM2 Hyperlipidemia Anemia of chronic disease Nausea/vomiting improved. Patient tolerated diet. UTI, E. coli Urine cx (02/20): E. coli afebrile; no leukocytosis Patient completed 7 days of IV Rocephin. Perinephric Hematoma ESRD / CKD5 Patient had a recent biopsy of her R kidney, Patient reports pain in the right flank since biopsy CT abdomen (02/20): Crescentic isodense right posterior perinephric space collection, measuring 4.6 cm in greatest dimension. suggestive of hematoma in the setting of recent renal biopsy Renal u/s (02/20): Hypoechoic 3.8 cm perinephric collection on the right compatible with aging hematoma repeat CT abdomen (02/24): Slightly improved right perinephric hematoma. PRN pain medication Nephrology Consulted. Surgery Dr. Lopez consulted and Tunneled HD inserted (02/25) Patient underwent hemodialysis. Outpatient hemodialysis on Saturday, Saturday and Saturday has been set up per nephrology recommendation. Right-sided weakness, blurred vision CT head (02/20): area of subacute ischemic insult suspected measuring 12 mm suspected adjacent to the left frontal horn MRI Brain (02/20): Negative for acute CVA or other acute intracranial process Continued aspirin, folic acid and statin Neurology consulted Patient is evaluated by PT. She ambulated 100 feet with AD. Patient discharged with home health for PT. Iron deficiency anemia iron studies 02/24 consistent with iron deficiency anemia Monitor H&H. hgb 7.9 -> 7.7 (02/25) Monitor and transfuse as needed for hemoglobin less than 7. Hypertension Home medication readjusted by nephrology. Patient placed on nifedipine and Coreg. Other home meds including clonidine, hydrochlorothiazide, amlodipine and losartan discontinued. Nephrology to follow for BP medication adjustments as outpatient. IDDM2. SSI. Patient barely needed insulin coverage. Home NPH insulin discontinued on discharge. Hyperlipidemia. Continue statin. Anemia of chronic disease. H&H stable. Continue to monitor Vital Signs/Physical Exam: Temp Pulse Resp BP Pulse Ox 98.0 F 93 H 20 116/58 L 99 02/27/23 14:06 02/27/23 14:06 02/27/23 14:06 02/27/23 14:06 02/27/23 14:06 General: Alert, In no apparent distress, Oriented x3 HEENT: Mucous membr. moist/pink Neck: Supple, JVD not distended Respiratory: Clear to auscultation bilaterally, Normal air movement Cardiovascular: Regular rate/rhythm, Normal S1 S2 Gastrointestinal: Normal bowel sounds, Soft and benign, Non-distended Musculoskeletal: No swelling, Other (Left chest tunneled dialysis cath) Integumentary: No rashes Neurological: Normal strength at 5/5 x4 extr Laboratory Data at Discharge: WBC 5.80 thou/uL (4.3-10.9) 02/27/23 06:20 Hgb 8.1 g/dL (12.0-15.0) L 02/27/23 06:20 Hct 24.4 % (36.0-45.0) L 02/27/23 06:20 Plt Count 134 thou/uL (152-406) L 02/27/23 06:20 PT 11.5 SECONDS (9.5-12.5) 02/25/23 01:47 INR 1.05 02/25/23 01:47 APTT 32.4 SECONDS (24.3-36.9) 02/24/23 11:36 Sodium 144 mEq/L (136-145) 02/27/23 06:20 Potassium 3.9 mEq/L (3.5-5.1) 02/27/23 06:20 BUN 16 mg/dL (7-18) 02/27/23 06:20 Creatinine 2.71 mg/dL (0.55-1.02) H 02/27/23 06:20 Glucose 174 mg/dL (74-106) H 02/27/23 06:20 Phosphorus 2.7 mg/dL (2.5-4.9) 02/27/23 06:20 Magnesium 1.8 mg/dL (1.6-2.4) 02/25/23 01:47 Total Bilirubin 0.1 mg/dL (0.2-1.0) L 02/26/23 06:56 AST 16 U/L (15-37) 02/26/23 06:56 ALT 17 U/L (13-56) 02/26/23 06:56 Alkaline Phosphatase 77 U/L (45-117) 02/26/23 06:56 Triglycerides 99 mg/dL (<150) 02/21/23 01:59 Cholesterol 119 mg/dL (<200) 02/21/23 01:59 HDL Cholesterol 53 mg/dL (40-60) 02/21/23 01:59 Cholesterol/HDL Ratio 2.25 02/21/23 01:59 Lipase 39 U/L (13-75) 02/24/23 04:05 Home Medications: Atorvastatin Calcium 20 tab PO DAILY 05/29/20 Docusate [Colace Cap*] 100 mg PO DAILY 30 Days #30 cap 06/02/20 Atorvastatin Calcium [Lipitor] 40 mg PO BEDTIME #30 tab 02/27/23 Epoetin [Retacrit] 10,000 unit IV EVERY HD vial 02/27/23 Hydrocodone 7.5/APAP 325 [[place] 7.5/325 mg] 1 tab PO Q6H PRN #15 tab 02/27/23 Nifedipine Xl [Procardia Xl*] 30 mg PO DAILY #30 tab 02/27/23 carvediloL [Coreg*] 25 mg PO BID 6AM 6PM #60 tab 02/27/23 New Medications: carvediloL [Coreg*] 25 mg PO BID 6AM 6PM #60 tab Atorvastatin Calcium [Lipitor] 40 mg PO BEDTIME #30 tab Hydrocodone 7.5/APAP 325 [[place] 7.5/325 mg] 1 tab PO Q6H PRN #15 tab PRN Reason: Pain Nifedipine Xl [Procardia Xl*] 30 mg PO DAILY #30 tab Diet: Renal Activity: Ad soman Followup: Keaton Martinez DO [Primary Care Provider] - 1-2 Weeks Time spent managing pt's care (in minutes): 34
--- NOTE | 2023-02-27 20:51 | PN ---
Subjective: The patient was admitted with acute kidney injury on advanced chronic kidney disease. Sadi cornell has kidney biopsy complicated with perinephric hematoma. The patient had set up for outpatien t dialysis. Physical Examination: Vital Signs: Blood pressure 116/58, pulse of 93, afebrile. Chest: Clear to auscultation. Heart: S1, S2, regular. Abdomen: Soft, nontender. Extremities: No edema. Neurologic: Alert, no focality. Laboratory Data: Hemoglobin 8.1. Sodium 144, potassium 3.9, bicarb 29, BUN 16, creatinine 2.7, GFR of 20, calcium 8, phosphorus 2.7. Current Medications: The patient is on include: Docusate, atorvastatin, carvedilol, nifedipine, fol ic acid. Assessment And Plan: 1.Acute kidney injury on advanced chronic kidney disease, progression to end-stage renal disease. Sadi cornell dialysis dependent. We will continue the patient on dialysis and we will follow up the patien t. The patient already set up for outpatient dialysis. The patient cleared from the Renal standpoin t for discharge planning. 2.Hypertension, controlled optimal. Continue current treatment. 3.Hypophosphatemia. We will hold on any binder. 4.Anemia of chronic kidney disease. Continue LUZ. HODA/JU Voice ID: [id number] Report ID: [id number]
== END 2023-02-27 16:10 | disposition home or self-care (01) | DRG 689 ==
LOC: ER 11:37 → 2ND 20:09
PROVIDERS: ADMIT Hospitalist; ATTEND Internal Medicine
PROC: 02HV33Z Insertion of Infusion Device into Superior Vena Cava, Percutaneous Approach (ICD-10-PCS; 2023-02-25)
PROC: 0JH63XZ Insertion of Tunneled Vascular Access Device into Chest Subcutaneous Tissue and Fascia, Percutaneous Approach (ICD-10-PCS; principal; 2023-02-25 11:15)
DX: N39.0 Urinary tract infection, site not specified (principal); N18.6 End stage renal disease; S37.011A Minor contusion of right kidney, initial encounter; I12.0 Hypertensive chronic kidney disease with stage 5 chronic kidney disease or end stage renal disease; N17.9 Acute kidney failure, unspecified; E11.22 Type 2 diabetes mellitus with diabetic chronic kidney disease; D63.1 Anemia in chronic kidney disease; D50.9 Iron deficiency anemia, unspecified; E78.5 Hyperlipidemia, unspecified; H53.8 Other visual disturbances; E83.39 Other disorders of phosphorus metabolism; N25.0 Renal osteodystrophy; B96.20 Unspecified Escherichia coli [E. coli] as the cause of diseases classified elsewhere; R29.704 NIHSS score 4; Z88.2 Allergy status to sulfonamides; Z88.5 Allergy status to narcotic agent; Z99.2 Dependence on renal dialysis; Z79.4 Long term (current) use of insulin; Z90.49 Acquired absence of other specified parts of digestive tract; Z79.82 Long term (current) use of aspirin; Z79.84 Long term (current) use of oral hypoglycemic drugs; Z79.899 Other long term (current) drug therapy; Z90.711 Acquired absence of uterus with remaining cervical stump; Z20.822 Contact with and (suspected) exposure to COVID-19
CPT/HCPCS: 36415; 70450; 70551; 71045; 71250; 74176; 76000; 76377; 76770; 80048; 80053; 80061; 80069; 80076; 81001; 82306; 82728; 82947; 83540; 83690; 83735; 83880; 83970; 84100; 84132; 84439; 84443; 84466; 84484; 85025; 85610; 85730; 86704; 86706; 86850; 86900; 86901; 86920; 87077; 87086; 87088; 87186; 87340; 87635; 87804; 93005; 93880; 96361; 96374; 96375; 97110; 97116; 97161; 97530; 99285; A4216; C1752; J0360; J0696; J1644; J1650; J1815; J2001; J2250; J2405; J2550; J2704; J3010; J7030; J7040; Q0162

== ENCOUNTER 2023-03-22 09:44 | Emergency (ER) | payer OTHER ==
--- OUTSIDE RECORDS SUMMARY | 2023-03-22 09:47 | XMS REPORT | Clinical Summary ---
:1970 Author Organization [facility] MD [facility] Address [facility] [place] [address] Care Team Providers Name Role Phone Cassie Porter MD Unavailable Allergies Not on File Medications Not on file Active Problems Not on file Social History Tobacco Use Types Packs/Day Years Used Date Smoking Tobacco: Never Assessed Sex and Gender Information Value Date Recorded Sex Assigned at Not on file Gender Identity Not on file Sexual Orientation Not on file Last Filed Vital Signs Not on file Plan of Treatment Not on file Results Not on fileafter 03/22/2022 Care Teams Sen[employer] Manager Relationship Specialty Start Date End Date Cassie Porter MD PCP - External Referring 04/29/18 [address] [place] [address]
--- OUTSIDE RECORDS SUMMARY | 2023-03-22 09:52 | XMS REPORT | Continuity of Care Document ---
:1970 Author Organization [facility] Address [address] [place] [address] Care Team Providers Name Role Phone Griselda SWARTZ Darlene Primary Care Physician [phone] SONNY MUNGUIA Attending Clinician Unavailable JOSE ALFREDO SELLERS Attending Clinician UnavailJARRELL Strong Attending Clinician Unavailable VERNELL THACKER Attending Clinician Unavailable LAB90 Attending Clinician Unavailable Annelise Carvalho MD Attending Clinician Nathalie MAGALLANES, Rafiq Daniel Attending Clinician [phone] Sonny Munguia MD Attending Clinician JOHN FRANKS Attending Clinician Unavailable Ara Chang MD Attending Clinician Jayden MAGALLANES, Goyo Venegas Attending Clinician [phone] Tee MAGALLANES, Diamond Wilde Attending Clinician [phone] John Franks MD Attending Clinician ANNELISE CARVALHO Admitting Clinician Unavailable JAYDENNIKHIL BRYANAna VENEGAS Admitting Clinician Unavailable Payers Payer Name Policy Type Policy Number Effective Date Expiration Date Lovely govea [employer] MEDICARE HMO [id number] 2022 POS 00:00:00 AETNA CVS 9 [id number] 2023 BRONZE: HMO ON 00:00:00 STANDARD Problems [...] St [facility] [place] Hypertensi Hypertensi Disease Active C HI St ve urgency ve urgency 02-16 Sabi kes 00:00: Medical 00 Center Allergies, Adverse Reactions, Alerts Allergy Allergy Status Severity Reaction(s) Onset Inactive Treating Comm ents Source Name Type Date Date Clinician Codeine Propensi Active Other Does not Kelse y ty to 02-19 like Seybold adverse 00:00: taking - reaction 00 this Externa s l Morphine Propensi Active Other Reyna ty to 02-19 Seybold adverse 00:00: - reaction 00 Externa s l Sulfa Propensi Active Swelling Reyna Drugs ty to 02-19 Seybold adverse 00:00: - reaction 00 Externa s l SULFA Allergy Active High Hives 2023-[address] [facility] (SULFONA 9-04 [facility] 00[facility] Medical ANTIBIOT 00 Center ICS) CODEINE Allergy Active N\\T\\V [facility] MEPERIDI Allergy Active [facility] [place] MORPHINE Allergy Active Other [facility] AMLODIPI Allergy Active Low Other [facility] 04 [facility] Amlodipi Drug Active Other (See Cough [facility] Intol[facility] Comments) 04 [facility] n[facility] 00 Center Codeine Drug Active Nausea And [facility] Vomiting 01-28 [facility] Center Meperidi Drug Active [facility] 01-28 [facility] [place] Morphine Drug Active Other (See [facility] Int[facility] Comments) 01-28 [facility] 00:[facility]: Medical [facility] [place] Sulfa Drug Active Hives, [facility] (Sulfona Allergy Shortness Of 9-04 [facility] mide Breath, 00:00: Medical Antibiot Itching, 00 Center ics) Swelling Sulfa Propensi Active 2021-05 Antibiot ty to 107 ics - adverse 00:00: CLASS reaction 00 to drug Sulfur Propensi Active Dioxide ty to 8-02 adverse 00:00: reaction 00 to drug NO KNOWN Allergy Active [facility] Family History Family Member Diagnosis Comments Start Date Stop Date Source Natural mother Diabetes type II [facility] Natural mother Heart failure [facility] Social History Social Habit Start Date Stop Date Quantity Comments Source History SDOH [facility] Transport [facility]-Med Medical Center History SDOH [facility] Housing Places Medical Ce nter Lived Sexual [facility] Alcohol intake 2023-03-08 2023-03-08 Lifetime Reyna Singh bold - 00:00:00 00:00:00 non-drinker External (finding) History of Social 2023 2023 Reyna Nixold - function 00:00:00 00:00:00 External Tobacco use and 2023 2023 Smokeless Reyna Se ybold - exposure 00:00:00 00:00:00 tobacco non-user External History [facility] 2023-01-29 2023-01-[address] [facility] Transport Med 00:00:00 00:00:[address] History SDMI 2023-01-29 2023-01-[address] [facility] Housing Unable to 00:00:00 00:00:00 Medical Center Pay History SDMI 2023-01-29 2023-01-[address] [facility] Housing Homeless 00:00:00 00:00:00 Medical Center Last Year Exposure to 2023-01-18 2023-01-[address] [facility] SARS-CoV-2 (event) 00:00:00 20:09:00 [facility] Center Sex Ass[birth year] At [birth year] [facility]00 [place] [facility] Smoking Status Start Date Stop Date Source Never smoked tobacco Reyna Seyb old - External Medications Ordered Filled Start Stop Current Ordering Indication Dosage Frequency Signature Comments Components Source Medication Medication Date Date Medication? Clinician (SIG) Name Name Carvedilol 2022-05 Yes [id number] 25mg Take 1 K elsey 25 MG oral 0-13 tablet (25 Sey bold Tablet 08:02: mg total) - 57 by mouth Externa in the l morning and 1 tablet (25 mg total) in the evening. Take with meals. hydrALAZINE 2022-05 Yes [id number] 50mg Take 1 Reyna HCl 50 MG 0-13 tablet (50 Seyb old oral Tablet 08:02: mg total) - 57 by mouth 3 Externa times l daily. NIFEdipine 2022-05- No [id number] 90mg Take 1 Reyna 90 MG oral 0-13 10-13 tablet (90 Se ybold TABLET SR 08:02: 00:00 mg total) - 24 HR 57 :00 by mouth Externa daily. l Furosemide 2022-05 Yes [id number] Raza sey 40 MG oral 0-11 Seybold Tablet 00:00: - 00 Externa l Atorvastati 2022-05 Yes [id number] 40mg 1 tablet Reyna n Calcium 0-04 3 (40 mg Seybold 40 MG oral 00:00: total). - Tablet 00 Externa l Folic Acid 2022-05 Yes 1mg Take 1 Kelse y 1 MG oral 0-04 tablet (1 Seybo ld tablet 00:00: mg total) - 00 by mouth Externa daily. 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 l HYDROcodone 2022-05 Yes 1{tbl} Q.25D Take 1 K elsey -Acetaminop 0-04 tablet by Sey bold hen 7.5-325 00:00: mouth - MG oral 00 every 6 Externa Tablet hours as l needed FOR PAIN. Carvedilol Yes 25mg Take 1 Kelse y 25 MG oral 9-27 tablet (25 Sey bold Tablet 09:57: mg total) - 02 by mouth Externa in the l morning and 1 tablet (25 mg total) in the evening. Take with meals. NIFEdipine Yes 90mg Take 1 Kelse y 90 MG oral 9-27 tablet (90 Sey bold TABLET SR 09:57: mg total) - 24 HR 02 by mouth Externa daily. l hydrALAZINE Yes 50mg Take 1 Edie ey HCl 50 MG 9-27 tablet (50 Seyb old oral Tablet 09:57: mg total) - 02 by mouth 3 Externa times l daily. Lisinopril 2022- No 10mg Take 1 Edie ey 10 MG oral -20 02- tablet (10 Se ybold Tablet 09:56: 00:00 mg total) - 36 :00 by mouth Externa daily. l Cholecalcif 2022- No 25U Take 25 Ke lsey sven -20 02- units by Seybold (Vitamin D) 09:56: 00:00 mouth - 25 MCG 25 :00 daily. Externa (1000 UT) l oral Tablet Estradiol 1 2022- No 1mg Take 1 Raza sey MG oral -20 02- tablet (1 Seybol d Tablet 09:56: 00:00 mg total) - 18 :00 by mouth Externa daily. l Ondansetron Yes [id number] 8mg Q.[id number] Take 2 Reyna (ZOFRAN) 4 9- [id number] tablets (8 Seybold MG oral 00:00: 3D mg total) - TABLET 00 by mouth Externa DISPERSIBLE every 8 l hours as needed for nausea. Ondansetron Yes [id number] 8mg Q.[id number] Take 2 Reyna (ZOFRAN) 4 9- [id number] tablets (8 Seybold MG oral 00:00: 3D mg total) - TABLET 00 by mouth Externa DISPERSIBLE every 8 l hours as needed for nausea. Sevelamer Yes TAKE 1 Reyna Carbonate 9-21 TABLET BY Seybo ld 800 MG oral 00:00: MOUTH - Tablet 00 THREE Externa TIMES l DAILY BEFORE MEAL(S) Sevelamer Yes [id number] TAKE 1 Ke lsey Carbonate 9-21 TABLET BY Seybo ld 800 MG oral 00:00: MOUTH - Tablet 00 THREE Externa TIMES l DAILY BEFORE MEAL(S) calcitrioL 2023- Yes .25ug QD Take 1 [...] :00 by mouth Cent er tablet daily. calcitrioL 2023- Yes .25ug QD Take 1 [...] :00 by mouth Cent er tablet daily. Calcitriol Yes .25ug Take 1 Edie ey 0.25 MCG 9-11 capsule Seybold oral 00:00: (0.25 mcg - Capsule 00 total) by Externa mouth l daily. Calcitriol Yes [id number] .25ug Take 1 Reyna 0.25 MCG 9-11 capsule Seybold oral 00:00: (0.25 mcg - Capsule 00 total) by Externa mouth l daily. carvediloL 2023- Yes 25mg Q.5D Take [address] [facility] (COREG) 25 9 09-10 tablet (25 Sabi kes MG tablet 00:00: 23:59 mg total) Me dical 00 :00 by mouth 2 Center (two) times daily. hydrALAZINE 2023- Yes 50mg Take [address] [facility] (APRESOLINE 02-04-10 tablet (50 L ukes ) 50 MG 00:00: 23:59 mg total) Medi gena tablet 00 :00 by mouth Center every 8 (eight) hours . sevelamer 2023- Yes 800mg Take [address] [facility] (RENVELA) 02-04 09-10 tablet [facility] 800 mg 00:00: 23:59 (800 mg Medical tablet 00 :00 total) by Center mouth 3 (three) times daily with meals. carvediloL 2023- Yes 25mg Q.5D Take [address] [facility] (COREG) 25 9- 09-10 tablet (25 Sabi kes MG tablet 00:00: [...] mouth 3 (three) times daily with meals. Ondansetron 2022- No DISSOLVE 1 Reyna (ZOFRAN) 4 02-04 TABLET IN Sey bold MG oral 00:00: 00:00 MOUTH - TABLET 00 :00 EVERY 8 Externa DISPERSIBLE HOURS l NEEDED FOR UP TO 7 DAYS ondansetron 2022- No 4mg Take [address] [facility] (ZOFRAN-ODT 02-04 tablet (4 Sabi kes ) 4 MG 00:00: 23:59 mg total) Medic al disintegrat 00 :00 by mouth Cent er ing tablet every 8 (eight) hours as needed for up to 7 days. ondansetron 2022- No 4mg Take [address] [facility] (ZOFRAN-ODT 02-04 tablet (4 Sabi kes ) 4 MG 00:00: 23:59 mg total) Medic al disintegrat 00 :00 by mouth Cent er ing tablet every 8 (eight) hours as needed for up to 7 days. metOLazone 2021-05- No Reyna 2.5 MG oral 06-11 Seybold Tablet 00:00: 00:00 - tablet 00 :00 Externa l Insulin NPH 2021-05 Yes Reyna Isophane & 1-10 Seybold Regular 00:00: - (HumuLIN 00 Externa 70/30 l KwikPen) (70-30) 100 UNIT/ML subcutaneou s Suspension Pen-injecto r Insulin NPH 2021-05 Yes [id number] Ke lsey Isophane & 1-10 Seybold Regular 00:00: - (HumuLIN 00 Externa 70/30 l KwikPen) (70-30) 100 UNIT/ML subcutaneou s Suspension Pen-injecto r Dose 2021-05 No Unknown 06-02 00:00: 00 INJECT 10 2021-05 No UNITS IN 1-07 THE AM AND 00:00: 10 UNITS IN 00 THE EVENING insulin 2022- No 10U Inject [address] [facility] 70/30, 9-29 09-29 Units [facility] insulin 00:00: 23:59 subcutaneo Med ical NPH-insulin 00 :00 [facility] [place] regular, (two) (HumuLIN times 70/30) 100 daily unit/mL before (70-30) meals. injection insulin 2022- No 10U Inject [address] [facility] 70/30, 9- 09-29 Units [facility] insulin 00:00: 23:59 subcutaneo Med ical NPH-insulin 00 :[address] regular, (two) (HumuLIN times 70/30) 100 daily unit/mL before (70-30) meals. injection insulin 2022- No 10U Inject [address] 70/30, 9- 09-29 Units [facility] insulin 00:00: 23:59 subcutaneo Med ical NPH-insulin 00 :[address] regular, (two) (HumuLIN times 70/30) 100 daily unit/mL before (70-30) meals. injection insulin 2022- No 10U Inject [address] 70/30, 9- 09-29 Units [facility] insulin 00:00: 23:59 subcutaneo Med ical NPH-insulin 00 :[address] regular, (two) (HumuLIN times 70/30) 100 daily unit/mL before (70-30) meals. injection insulin 2022- No 10U Inject [address] 70/30, 9- 09-29 Units [facility] insulin 00:00: 23:59 subcutaneo Med ical NPH-insulin 00 :00 [facility] 2 Center regular, (two) (HumuLIN times 70/30) 100 daily unit/mL before (70-30) meals. injection insulin 2022- No 10U Inject [address] 70/30, 9-29 09-11 Units [facility] insulin 00:00: 00:00 subcutaneo Med ical NPH-insulin 00 :[address] regular, (two) (HumuLIN times 70/30) 100 daily unit/mL before (70-30) meals. injection insulin 2022- No 10U Inject [address] 70/30, 02-22 09-11 [facility] insulin 00:00: 00:00 subcutaneo Med ical NPH-insulin 00 :00 [facility] 2 Center regular, (two) (HumuLIN times 70/30) 100 daily unit/mL before (70-30) meals. injection amLODIPine 2021- No 10mg QD Take [address] [facility] (NORVASC) 02-2228 tablet (10 Celia es 10 MG 00:00: [...] 10U QD Inject [address] detemir 02-22- Units [facility] U-100 00:00: 00:00 subcutaneo Medic [...] 10U QD Inject [address] detemir 02-22- Units [facility] U-100 00:00: 00:00 subcutaneo Medic [...] No Unknown 8-30 00:00: 00 Lexapro 10 No 1mg mg tablet 8-18 00:00: 00 Dose 2020-0 No Unknown 8-05 00:00: 00 losartan 50 0 No 1mg mg-hydrochl 802 orothiazide 00:00: 12.5 mg 00 tablet metformin 2021-0 No 1mg 1,000 mg -02 tablet 00:00: 00 Vital Signs Vital Name Observation Time Observation Value Comments Source Body temperature 2023-03-08 12:56:00 36.28 Cori Edie ey Seybold - External Respiratory rate 2023-03-08 12:56:00 15 /min Edie bowers Seybold - External Body height 2023-03-08 12:56:00 157.5 cm Reyna Murry eybold - External Body weight 2023-03-08 12:56:00 76.658 kg Reyna Mrury eybold - External BMI 2023-03-08 12:56:00 30.91 kg/m2 Reyna Murry eybold - External Systolic blood 2023-03-08 12:56:00 158 mm[Hg] Reyna Seybold - pressure External Diastolic blood 2023-03-08 12:56:00 82 mm[Hg] aRzase y Seybold - pressure External Heart rate 2023-03-08 12:56:00 90 /min Reyna Murry eybold - External Systolic blood 2023-02-20 14:49:00 148 mm[Hg] Reyna Seybold - pressure External Diastolic blood 2023-02-20 14:49:00 84 mm[Hg] Razase y Seybold - pressure External Heart rate 2023-02-20 14:49:00 86 /min Reyna Murry eybold - External Body temperature 2023-02-20 14:49:00 36 Cori Edie ey Seybold - External Respiratory rate 2023-02-20 14:49:00 15 /min Edie bowers Seybold - External Body height 2023-02-20 14:49:00 157.5 cm Reyna Murry eybold - External Body weight 2023-02-20 14:49:00 70.308 kg Reyna Murry eybold - External BMI 2023-02-20 14:49:00 28.35 kg/m2 Reyna Murry eybold - External WEIGHT 2023-02-04 05:30:00 76.2 kg WEIGHT 2023-02-03 [...] kg Systolic blood 2023-02-04 12:00:00 167 mm[Hg] [facility] Diastolic blood 2023-02-04 12:00:00 84 mm[Hg] [facility] Heart rate 2023-02-04 12:00:00 92 /min [facility] Body temperature 2023-02-04 12:00:00 36.44 Cori [facility] Respiratory rate 2023-02-04 12:00:00 18 /min [facility] Oxygen saturation in 2023-02-04 12:00:00 97 /min [facility] Arterial blood by Medical Ce nter Pulse oximetry Body weight 2023-02-04 05:30:00 76.2 kg [facility] BMI 2023-02-04 05:30:00 30.73 kg/m2 [facility] Body height 2023-02-01 09:50:00 157.5 cm [facility] BP Systolic 2022-04-02 10:03:00 152 mm[Hg] BP Diastolic 2022-04-02 10:03:00 87 mm[Hg] Weight Measured 2022-04-02 10:03:00 196.00 pounds Height Measured 2022-04-02 10:03:00 62.50 inches Body Temperature 2022-04-02 10:03:00 98.30 degrees Heart Rate 2022-04-02 10:03:00 82.00 /min Respiratory Rate 2022-04-02 10:03:00 Systolic blood 2022-02-22 10:35:00 116 mm[Hg] [facility] Diastolic blood 2022-02-22 10:35:00 68 mm[Hg] [facility] Heart rate 2022-02-22 10:35:00 84 /min [facility] Body temperature 2022-02-22 10:35:00 36.5 Cori [facility] Respiratory rate 2022-02-22 10:35:00 16 /min [facility] Oxygen saturation in 2022-02-22 10:35:00 98 /min [facility] Arterial blood by Medical Ce nter Pulse oximetry Body height 2022-02-17 16:15:00 162.6 cm [facility] Body weight 2022-02-17 16:15:00 72.3 kg [facility] BMI 2022-02-17 16:15:00 27.36 kg/m2 [facility] BP Systolic 2021-01-11 09:40:00 150 mm[Hg] BP [...] Clinician Source Performed POCT-GLUCOSE METER 2023-02-04 11:44:00 [facility] POCT-GLUCOSE METER 2023-02-04 06:37:00 [facility] BASIC METABOLIC PANEL 2023-02-04 05:36:00 [facility] MAGNESIUM 2023-02-04 05:36:00 [facility] PHOSPHORUS 2023-02-04 05:36:00 [facility] POCT-GLUCOSE METER 2023-02-03 21:52:00 [facility] POCT-GLUCOSE METER 2023-02-03 16:26:00 [facility] POCT-GLUCOSE METER 2023-02-03 12:03:00 Nilda [facility] POCT-GLUCOSE METER 2023-02-03 07:26:00 Nilda [facility] BASIC METABOLIC PANEL 2023-02-03 05:53:00 Nilda [facility] MAGNESIUM 2023-02-03 05:53:00 Nilda [facility] PHOSPHORUS 2023-02-03 05:53:00 Nilda [facility] CBC (HEMOGRAM ONLY) 2023-02-03 05:53[facility] 2023-02-02 21:09:00 Nilda [facility] POCT-GLUCOSE METER 2023-02-02 [facility]23-02-02 11:55[facility] 2023-02-02 05:51:00 Nilda [facility] MAGNESIUM 2023-02-02 [facility]-02 05:51:00 Nilda [facility] CBC (HEMOGRAM ONLY) 2023-02-02 05:51[facility] POCT-GLUCOSE METER 2023-02-01 21:20:00 Nilda [facility] POCT-GLUCOSE METER 2023-02-01 15:52:00 Nilda [facility] POCT-GLUCOSE METER 2023-02-01 12:12[facility] 2023-02-01 10[facility]56[facility]23-02-01 10:46[facility]OLIC PANEL 2023-02-01 05:59:00 Nilda [facility] MAGNESIUM 2023-02-01 05:59:00 Nilda [facility] PHOSPHORUS 2023-02-01 05:59:00 Nilda [facility] CBC (HEMOGRAM ONLY) 2023-02-01 05:59:00 Nilda [facility] POCT-GLUCOSE METER 2023-01-31 21:02:00 Nilda [facility] POCT-GLUCOSE METER 2023-01-31 16:35:00 Nilda [facility] POCT-GLUCOSE METER 2023-01-31 11:48:00 Nilda [facility] URINE CULTURE 2023-01-31 07:45:00 Munguia [facility] POCT-GLUCOSE METER 2023-01-31 05:42:00 Nilda [facility] CBC W/PLT COUNT & AUTO 2023-01-31 04:42:00 Taylor Gillette [facility] DIFFERENTIAL [facility] BASIC METABOLIC PANEL 2023-01-31 04:42:00 Arteaga [facility] MAGNESIUM 2023-01-31 04:42:00 Arteaga [facility] PHOSPHORUS 2023-01-31 04:42:00 Arteaga [facility] CBC W/PLT COUNT & AUTO 2023-01-31 04:42:00 Taylor Gillette [facility] DIFFERENTIAL [facility] POCT-GLUCOSE METER 2023-01-30 20:24:00 Nilda [facility] POCT-GLUCOSE METER 2023-01-30 15:37:00 Munguia [facility] POCT-GLUCOSE METER 2023-01-30 10:51:00 [facility] POCT-GLUCOSE METER 2023-01-30 06:14:00 Rafiq [facility] URINALYSIS W/ MICROSCOPIC 2023-01-30 05:38:[address] [facility] PROTEIN, RANDOM URINE 2023-01-30 05:38:[address] [facility] CBC W/PLT COUNT & AUTO 2023-01-30 05:38:00 Taylor Gillette [facility] DIFFERENTIAL [facility] BASIC METABOLIC PANEL 2023-01-30 05:38:00 Arteaga, [facility] MAGNESIUM 2023-01-30 05:38:00 Arteaga, [facility] PHOSPHORUS 2023-01-30 05:38:00 Arteaga [facility] CBC W/PLT COUNT & AUTO 2023-01-30 05:38:00 Taylor Gillette [facility] DIFFERENTIAL [facility] POCT-GLUCOSE METER 2023-01-29 20:40:00 Nathalie [facility] SODIUM, RANDOM URINE 2023-01-29 15:20:[address] [facility] CREATININE, RANDOM URINE 2023-01-29 15:20:[address] [facility] POCT-GLUCOSE METER 2023-01-29 15:19:00 Nathalie [facility] US RENAL COMPLETE 2023-01-29 14:18:27 [facility] PO[facility]UCOSE METER 2023-01-29 12:15:00 Nathalie [facility] PROTEIN ELECTROPHORESIS, 2023-01-29 12:13:00 Goyo Munroe [facility] KAPPA / LAMBDA LIGHT 2023-01-29 12:13:00 Goyo Munroe [facility] LAB HIV-1 AG W/HIV-1&2 2023-01-29 12:13:00 Goyo Munroe I [facility] HEPATITIS PANEL, ACUTE 2023-01-29 12:13:00 Goyo Munroe [facility] S [facility] ALDOSTERONE/PLASMA RENIN 2023-01-29 12:13:00 Goyo Munroe [facility] ACTIVITY RATIO [facility] IMMUNOFIXATION 2023-01-29 12:13:00 Goyo Munroe [facility] ELECTROPHORESIS (ROLLY) [facility] nter 2D ECHO W/ DOPPLER 2023-01-29 09:35:00 Taylor Gillette [facility] (CW/PW/COLOR) [facility] CBC W/PLT COUNT & AUTO 2023-01-29 01:49:00 Taylor Gillette [facility] DIFFERENTIAL [facility] COMPREHENSIVE METABOLIC 2023-01-29 01:49:00 Taylor Gillette [facility] PANEL [facility] LIPID PANEL 2023-01-29 01:49:00 Taylor Gillette [facility] MAGNESIUM 2023-01-29 01:49:00 Jenni Chasity [facility] PHOSPHORUS 2023-01-29 01:49:00 Jenni Chasity [facility] CBC W/PLT COUNT & AUTO 2023-01-29 01:49:00 Taylor Gillette [facility] DIFFERENTIAL [facility] POTASSIUM 2023-01-28 21:16:00 Taylor Gillette [facility] PTH, INTACT 2023-01-28 21:16:00 Taylor Gillette [facility] VITAMIN D, 25-HYDROXY 2023-01-28 21:16:[address] [facility] XR CHEST 1 VIEW PORTABLE / 2023-01-28 20:38:15 Taylor Gillette [facility] BEDSIDE [facility] DRUG SCREEN, URINE, 2023-01-28 19:35:[address] [facility] SODIUM, RANDOM URINE 2023-01-28 19:35:00 Taylor Gillette [facility] CREATININE, RANDOM URINE 2023-01-28 19:35:00 Taylor Gillette I [facility] UREA NITROGEN, RANDOM 2023-01-28 19:35:00 Taylor Gillette [facility] URINE [facility] COMPREHENSIVE METABOLIC 2023-01-28 19:29:00 Taylor Gillette [facility] PANEL [facility] CALCIUM, IONIZED 2023-01-28 19:29:[address] [facility] es [facility] MAGNESIUM 2023-01-28 19:29:00 Taylor Gillette [facility] PHOSPHORUS 2023-01-28 19:29:00 Taylor Gillette [facility] PROTHROMBIN TIME/INR 2023-01-28 19:29:00 Taylor Gillette [facility] HEMOGLOBIN A1C 2023-01-28 19:29:00 [facility] TROPONIN I 2023-01-28 19:29:00 [facility] LIPID PANEL 2023-01-28 19:29:00 Taylor Gillette [facility] IRON, TIBC, % SAT. 2023-01-28 19:29:00 Taylor Gillette [facility] L [facility] F[facility] 2023-01-28 00:00:00 Fara Pettit [facility] POCT-GLUCOSE METER 2022-02-22 10:39:00 [facility] POCT-GLUCOSE METER 2022-02-22 07:49:00 John Franks [facility] BASIC METABOLIC PANEL 2022-02-22 04:19:00 Ivan Aguilar [facility] POCT-GLUCOSE METER 2022-02-21 23:22:00 [facility] POCT-GLUCOSE METER 2022-02-21 16:22:00 Joycelyn John [facility] POCT-GLUCOSE METER 2022-02-21 11:29:00 John Franks [facility] POCT-GLUCOSE METER 2022-02-21 07:39:00 [facility] BASIC METABOLIC PANEL 2022-02-21 03:46:00 Aguilar Ivan [facility] POCT-GLUCOSE METER 2022-02-21 00:17:00 John Franks [facility] MR CERVICAL SPINE WITH & 2022-02-20 18:30:00 [facility] [facility] WITHOUT IV CONTRAST Medical Cent er XR CHEST 1 VIEW PORTABLE / 2022-02-20 15:20:00 Angy Franks [facility] POCT-GLUCOSE METER 2022-02-20 12:50:00 John Franks [facility] CBC W/PLT COUNT & AUTO 2022-02-20 06:08:00 Levi Hopkins [facility] DIFFERENTIAL [facility] COMPREHENSIVE METABOLIC 2022-02-20 06:08:00 Levi Hopkins [facility] PANEL [facility] MAGNESIUM 2022-02-20 06:08:00 Levi Hopkins [facility] PHOSPHORUS 2022-02-20 06:08:00 KellieLevi [facility] CBC W/PLT COUNT & AUTO 2022-02-20 06:08:00 Levi [facility] DIFFERENTIAL [facility] POCT-GLUCOSE METER 2022 18:11:00 Diamond Oliveira [facility] POCT-GLUCOSE METER 2022 16:16:00 Zulema Oliveiraoliva [facility] POCT-GLUCOSE METER 2022 12:41:00 [facility] VITAMIN D, 25-HYDROXY 2022 09:30:00 Chioma Bustillos [facility] POCT-GLUCOSE METER 2022 08:14:00 Goyo Carpenter [facility] CBC W/PLT COUNT & AUTO 2022 02:10:00 Levi [facility] COMPREHENSIVE METABOLIC 2022 02:10:[address] [facility] PANEL [facility] MAGNESIUM 2022 02:10:00 KellieLevi tinoco [facility] PHOSPHORUS 2022 02:10:00 Kellie, Levi [facility] PTH, INTACT 2022 02:10:00 Najma Koo [facility] CBC W/PLT COUNT & AUTO 2022 02:10:00 KellieLevi tinoco [facility] POCT-GLUCOSE METER 2022-02-18 22:01:00 Jayden Alonzo [facility] POCT-GLUCOSE METER 2022-02-18 17:32:00 Jayden [facility] POCT-GLUCOSE METER 2022-02-18 13:00:00 Jayden [facility] 2D ECHO W/ DOPPLER 2022-02-18 10:36:26 DesmondMarina ta [facility] (CW/PW/COLOR) [facility] 2D ECHO W/ DOPPLER 2022-02-18 10:36:26 Marina Logan [facility] (CW/PW/COLOR) [facility] POCT-GLUCOSE METER 2022-02-18 09:25:00 JaydenCjAlonzo [facility] US RENAL COMPLETE 2022-02-18 08:33:00 Aissatou Henry [facility] POCT-GLUCOSE METER 2022-02-18 05:33:00 Jayden Alonzo [facility] CBC W/PLT COUNT & AUTO 2022-02-18 04:09:00 KellieLevi tinoco [facility] COMPREHENSIVE METABOLIC 2022-02-18 04:09:00 KellieLevi tinoco [facility] MAGNESIUM 2022-02-18 04:09:00 KellieLevi tinoco [facility] PHOSPHORUS 2022-02-18 04:09:00 Levi Hopkins [facility] CBC W/PLT COUNT & AUTO 2022-02-18 04:09:00 Levi Hopkins [facility] DIFFERENTIAL [facility] POCT-GLUCOSE METER 2022-02-17 22:53:00 Nikhil Carpenterd [facility] MR BRAIN WITHOUT IV 2022-02-17 18:29:00 Levi Hopkins [facility] CONTRAST [facility] POCT-GLUCOSE METER 2022-02-17 18:27:00 Jayden Goyo [facility] TSH/FREE T4 IF INDICATED 2022-02-17 17:06:00 Aissatou [facility] T4, FREE 2022-02-17 17:06:00 Aissatou Henry [facility] POCT-GLUCOSE METER 2022-02-17 16:29:00 Goyo Carpenter [facility] POCT-GLUCOSE METER 2022-02-17 15:14:00 Jayden Alonzo [facility] POCT-GLUCOSE METER 2022-02-17 14:10:00 Jayden Alonzo [facility] POCT-GLUCOSE METER 2022-02-17 13:18:00 Goyo Carpenter [facility] ECG 12-LEAD 2022-02-17 12:16:45 [facility] ECG 12-LEAD 2022-02-17 12:16:45 Unknown, Hl7 [facility] BASIC METABOLIC PANEL 2022-02-17 12:12:00 Ivan Aguilar [facility] POCT-GLUCOSE METER 2022-02-17 11:36:00 Jayden Goyo [facility] POCT-GLUCOSE METER 2022-02-17 10:04:00 Jayden, Alonzo [facility] POCT-GLUCOSE METER 2022-02-17 09:01:00 JaydenGoyo [facility] BASIC METABOLIC PANEL 2022-02-17 08:53:00 [facility] POCT-GLUCOSE METER 2022-02-17 08:13:00 Jayden Alonzo [facility] BASIC METABOLIC PANEL 2022-02-17 05:41:00 [facility] MAGNESIUM 2022-02-17 05:41:00 [facility] PHOSPHORUS 2022-02-17 05:41:00 [facility] POCT-GLUCOSE METER 2022-02-17 05:18:00 Jayden [facility] HEMOGLOBIN A1C 2022-02-17 03:29:00 [facility] CBC W/PLT COUNT & AUTO 2022-02-17 03:29:00 [facility] S t [facility] DIFFERENTIAL [facility] COMPREHENSIVE METABOLIC 2022-02-17 03:29:00 [facility] PANEL [facility] MAGNESIUM 2022-02-17 03:29:00 [facility] PHOSPHORUS 2022-02-17 03:29:00 [facility] CBC W/PLT COUNT & AUTO 2022-02-17 03:29:00 [facility] S t [facility] DIFFERENTIAL [facility] POCT-GLUCOSE METER 2022-02-17 02:55:00 Jayden [facility] BASIC METABOLIC PANEL 2022-02-17 01:40:00 [facility] POCT-GLUCOSE METER 2022-02-17 01:22:00 Jayden Alonzo [facility] POCT-GLUCOSE METER 2022-02-17 00:01:00 Jayden [facility] XR ABDOMEN/KUB 1 VIEW 2022-02-16 22:34:00 Ivan Aguilar [facility] POCT-GLUCOSE METER 2022-02-16 22:18:00 Jayden Alonzo [facility] BLOOD GAS, ARTERIAL 2022-02-16 21:43:00 Ivan Aguilar [facility] XR CHEST 1 VIEW PORTABLE / 2022-02-16 21:29:00 Ivan Aguilar [facility] BEDSIDE [facility] POCT-GLUCOSE METER 2022-02-16 21:02:00 Jayden [facility] KETONE, BLOOD 2022-02-16 20:59:00 Ivan Aguilar [facility] POCT-GLUCOSE METER 2022-02-16 20:22:00 Jayden Alonzo [facility] BASIC METABOLIC PANEL 2022-02-16 20:16:00 Ivan Aguilar [facility] POCT-GLUCOSE METER 2022-02-16 18:06:00 Jayden [facility] POCT-GLUCOSE METER 2022-02-16 17:15:00 Jayden Alonzo [facility] POCT-GLUCOSE METER 2022-02-16 16:01:00 Jayden Alonzo [facility] POCT-GLUCOSE METER 2022-02-16 15:03:00 Jayden Alonzo [facility] BLOOD CULTURE 2022-02-16 14:48:00 Marina Logan [facility] URINALYSIS W/ REFLEX URINE 2022-02-16 14:29:00 Marina Logan [facility] POCT-GLUCOSE METER 2022-02-16 14:16:00 Jayden Alonzo [facility] BLOOD CULTURE 2022-02-16 13:40:00 Marina Logan [facility] POCT-GLUCOSE METER 2022-02-16 13:24:00 Ara Chang [facility] POCT-GLUCOSE METER 2022-02-16 12:09:00 Ara Chang [facility] EEG AWAKE AND DROWSY 2022-02-16 11:47:00 Jayden Alonzo [facility] CBC W/PLT COUNT & AUTO 2022-02-16 11:25:[address] [facility] DIFFERENTIAL [facility] BASIC METABOLIC PANEL 2022-02-16 11:25:00 Jayden Alonzo [facility] HIGH SENSITIVITY TROPONIN 2022-02-16 11:25:00 [facility]on[facility] HEPATIC FUNCTION PANEL 2022-02-16 11:25:00 [facility] Alonzo [facility] LACTIC ACID, VENOUS 2022-02-16 11:25:[address] [facility]onzo [facility] CBC W/PLT COUNT & AUTO 2022-02-16 11:25:00 [facility] Alonzo [facility] DIFFERENTIAL [facility] SARS-COV2/RT-PCR ([facility] & 2022-02-16 11:03:00 [facility] Alonzo [facility] REF LABS) [facility] MRSA SCREEN 2022-02-16 11:03:00 [facility] Alonzo [facility] XR CHEST 1 VIEW PORTABLE / 2022-02-16 10:40:00 Cj Carpenterjosé ana [facility] BEDSIDE [facility] POCT-GLUCOSE METER 2022-02-16 09:16:00 Ara Chang [facility] Plan of Care Planned Activity Planned Date Details Comments Source Future Scheduled 2026-01-29 Lipid panel (procedure) [facility] 00:00:00 [code = 94383712] Medical Ce nter Future Scheduled 2026-01-29 Lipid panel (procedure) [facility] 00:00:00 [code = 35696400] Medical Ce nter Future Scheduled 2024-02-[address] [facility] 00:00:00 Counseling [facility] Screening Med ical Center (12+) [code = Tobacco Cessation Counseling and Screening (12+)] Future Scheduled 2024-02-[address] [facility] 00:00:00 Counseling and Screening Med ical Center (12+) [code = Tobacco Cessation Counseling and Screening (12+)] Future Scheduled 2023-07-[address]00 measurement (procedure) [facility] [code = 65284956] Future Scheduled 2023-07-[address] [facility] 00:00:00 measurement (procedure) [facility] Center [code = 68994039] Future Scheduled 2023-01-25 Influenza Vaccine (#1) C [...] breast Medical C enter (procedure) [code = 941354810] Future Scheduled 2021-05-29 Screening for malignant [facility] 00:00:00 neoplasm of breast Medical C enter (procedure) [code = 221644497] Future Scheduled 2021-05-29 Screening for malignant [facility] 00:00:00 neoplasm of breast Medical C enter (procedure) [code = 403648078] Future Scheduled 2021-05-29 Screening for malignant [facility] 00:00:00 neoplasm of breast Medical C enter (procedure) [code = 436520640] Future Scheduled 2021-05-29 Screening for malignant [facility] 00:00:00 neoplasm of breast Medical C enter (procedure) [code = 533017772] Future Scheduled 2021-05-29 Screening for malignant [facility] 00:00:00 neoplasm of breast Medical C enter (procedure) [code = 883340247] Future Scheduled 2021-05-29 Screening for malignant [facility] 00:00:00 neoplasm of breast Medical C enter (procedure) [code = 944711648] Future Scheduled 2021-05-[address] [facility] 00:00:00 [code = 09281765] Medical Ce nter Future Scheduled 2014 Lipid panel (procedure) [facility] 00:00:00 [code = 37425773] Medical Ce nter Future Scheduled 2014 Lipid panel (procedure) [facility] 00:00:00 [code = 43052401] Medical Ce nter Future Scheduled 2014 Lipid panel (procedure) [facility] 00:00:00 [code = 45427253] Medical Ce nter Future Scheduled 2014 Lipid panel (procedure) [facility] 00:00:00 [code = 22308888] Medical Ce nter Future Scheduled 1990 Screening for malignant [facility] 00:00:00 neoplasm of cervix Medical C enter (procedure) [code = 585678471] Future Scheduled 1990 Screening for malignant [facility] 00:00:00 neoplasm of cervix Medical C enter (procedure) [code = 789556563] Future Scheduled 1990 Screening for malignant [facility] 00:00:00 neoplasm of cervix Medical C enter (procedure) [code = 773012418] Future Scheduled 1990 Screening for malignant [facility] 00:00:00 neoplasm of cervix Medical C enter (procedure) [code = 878915040] Future Scheduled 1990 Screening for malignant [facility] 00:00:00 neoplasm of cervix Medical C enter (procedure) [code = 495715623] Future Scheduled 1990 Screening for malignant [facility] 00:00:00 neoplasm of cervix Medical C enter (procedure) [code = 451747572] Future Scheduled 1990 Screening for malignant [facility] 00:00:00 neoplasm of cervix Medical C enter (procedure) [code = 646324551] Future Scheduled 1988-02-20 DTAP/TDAP/TD VACCINES (1 [facility] [...] screening Medical Cent er (procedure) [code = 750336113] Future Scheduled [address] [facility] 00:00:00 Counseling and Screening [facility] (12+) [code = Tobacco Cessation Counseling and Screening (12+)] Future Scheduled [address] [facility] 00:00:00 Counseling and Screening [facility] (12+) [code = Tobacco Cessation Counseling and Screening (12+)] Future Scheduled 1979 DIABETIC EYE EXAM [code = [facility] 00:00:00 DIABETIC EYE EXAM] Medical C enter Future Scheduled 1979 Diabetic foot examination [facility] 00:00:00 (regime/therapy) [code = Med ical Center 953438661] Future Scheduled 1979 Urine screening for [facility] 00:00:00 protein (procedure) [code [facility] = 138490069] Future Scheduled 1979 DIABETIC EYE EXAM [code = [facility] 00:00:00 DIABETIC EYE EXAM] Medical C enter Future Scheduled 1979 Diabetic foot examination [facility] 00:00:00 (regime/therapy) [code = Med ical Center 374782431] Future Scheduled 1979 Urine screening for [facility] 00:00:00 protein (procedure) [code Me dical Center = 636833811] Future Scheduled 1975 Pneumococcal Vaccine: [facility]:00 0-64 Years (1 - PCV) Medical Center [code = Pneumococcal Vaccine: 0-64 Years (1 - PCV)] Future Scheduled 1975 Pneumococcal Vaccine: [facility] I [...] [facility] 00:[facility]:00 [code = CT Colonography [facility] (combo)] Future Scheduled 1969 Screening for malignant [facility] 00:00:00 neoplasm of colon Medical Ce nter (procedure) [code = 281530802] Future Scheduled 1969 Screening for malignant [facility] 00:00:00 neoplasm of colon Medical Ce nter (procedure) [code = 494201904] Future Scheduled 1969 Screening for malignant [facility] 00:00:00 neoplasm of colon Medical Ce nter (procedure) [code = 990394892] Future Scheduled 1969 Screening for malignant [facility] 00:00:00 neoplasm of colon Medical Ce nter (procedure) [code = 063776381] Future Scheduled 1969 Sigmoidoscopy [code = [facility] Sigmoidoscopy] Medical Cente r Future Scheduled 1969 CT Colonography (combo) [facility] 00:00:00 [code = CT Colonography Medi gena Center (combo)] Future Scheduled 1969 Screening for malignant [facility] 00:00:00 neoplasm of colon Medical Ce nter (procedure) [code = 463406636] Future Scheduled 1969 Screening for malignant [facility] 00:00:00 neoplasm of colon Medical Ce nter (procedure) [code = 809051084] Future Scheduled 1969 Screening for malignant [facility] 00:00:00 neoplasm of colon Medical Ce nter (procedure) [code = 398493841] Future Scheduled 1969 Screening for malignant [facility] 00:00:00 neoplasm of colon Medical Ce nter (procedure) [code = 966516095] Future Scheduled 1969 Sigmoidoscopy [code = [facility] Sigmoidoscopy] Medical Cente r Future Scheduled 1969 CT Colonography (combo) [facility] 00:00:00 [code = CT Colonography Medi gena Center (combo)] Future Scheduled 1969 Screening for malignant [facility] 00:00:00 neoplasm of colon Medical Ce nter (procedure) [code = 548535234] Future Scheduled 1969 Screening for malignant [facility] 00:00:00 neoplasm of colon Medical Ce nter (procedure) [code = 672855939] Future Scheduled 1969 Screening for malignant [facility] 00:00:00 neoplasm of colon Medical Ce nter (procedure) [code = 547070026] Future Scheduled 1969 Screening for malignant [facility] 00:00:00 neoplasm of colon Medical Ce nter (procedure) [code = 745992299] Future Scheduled 1969 Sigmoidoscopy [code = [facility] 00:[facility]:00 Sigmoidoscopy] Medical Cente r Future Scheduled 1969 CT Colonography (combo) [facility] 00:00:00 [code = CT Colonography Medi gena Center (combo)] Future Scheduled 1969 Screening for malignant [facility] 00:00:00 neoplasm of colon Medical Ce nter (procedure) [code = 926344347] Future Scheduled 1969 Screening for malignant [facility] 00:00:00 neoplasm of colon Medical Ce nter (procedure) [code = 757061881] Future Scheduled 1969 Screening for malignant [facility] 00:00:00 neoplasm of colon Medical Ce nter (procedure) [code = 724366473] Future Scheduled 1969 Screening for malignant [facility] 00:00:00 neoplasm of colon Medical Ce nter (procedure) [code = 508749607] Future Scheduled 1969 Sigmoidoscopy [code = [facility] 00:[facility] Sigmoidoscopy] Medical Cente r Future Scheduled 1969 CT Colonography (combo) [facility] 00:00:00 [code = CT Colonography [facility] (combo)] Future Scheduled 1969 Screening for malignant [facility] 00:00:00 neoplasm of colon Medical Ce nter (procedure) [code = 793459421] Future Scheduled 1969 Screening for malignant [facility] 00:00:00 neoplasm of colon Medical Ce nter (procedure) [code = 023771101] Future Scheduled 1969 Screening for malignant [facility] 00:00:00 neoplasm of colon Medical Ce nter (procedure) [code = 717159833] Future Scheduled 1969 Screening for malignant [facility] 00:00:00 neoplasm of colon Medical Ce nter (procedure) [code = 002883892] Future Scheduled 1969 Sigmoidoscopy [code = [facility] 00:[facility]:00 Sigmoidoscopy] Medical Kelbye r Future Scheduled 1969 CT Colonography (combo) [facility] 00:00:00 [code = CT Colonography [facility] (combo)] Future Scheduled 1969 Screening for malignant [facility] 00:00:00 neoplasm of colon Medical Ce nter (procedure) [code = 887710557] Future Scheduled 1969 Screening for malignant [facility] 00:00:00 neoplasm of colon Medical Ce nter (procedure) [code = 196287509] Future Scheduled 1969 Screening for malignant [facility] 00:00:00 neoplasm of colon Medical Ce nter (procedure) [code = 394546478] Future Scheduled 1969 Screening for malignant [facility] 00:00:00 neoplasm of colon Medical Ce nter (procedure) [code = 189737967] Future Scheduled 1969 Sigmoidoscopy [code = [facility] 00:[facility]:00 Sigmoidoscopy] Medical Kelbye r Future Scheduled 1969 CT Colonography (combo) [facility] 00:00:00 [code = CT Colonography [facility] (combo)] Future Scheduled 1969 Screening for malignant [facility] 00:00:00 neoplasm of colon Medical Ce nter (procedure) [code = 754294779] Future Scheduled 1969 Screening for malignant [facility] 00:00:00 neoplasm of colon Medical Ce nter (procedure) [code = 318206727] Future Scheduled 1969 Screening for malignant [facility] 00:00:00 neoplasm of colon Medical Ce nter (procedure) [code = 839670190] Future Scheduled 1969 Screening for malignant [facility] 00:00:00 neoplasm of colon Medical Ce nter (procedure) [code = 672025742] Future Scheduled 1969 Sigmoidoscopy [code = [facility] Sigmoidoscopy] Medical Kelbye r Goal Plan of Care Note [code = 06596-1] Goal Plan of Care Note [code = 33253-2] Goal Plan of Care Note [code = 21135-4] Goal Plan of Care Note [code = 86177-9] Goal Plan of Care Note [code = 24760-5] Goal Plan of Care Note [code = 01180-0] Goal Plan of Care Note [code = 40246-2] Goal Plan of Care Note [code = 41028-1] Goal Plan of Care Note [code = 13056-2] Goal Plan of Care Note [code = 14253-1] Goal Plan of Care Note [code = 56269-4] Goal Plan of Care Note [code = 04405-1] Goal Plan of Care Note [code = 90383-2] Encounters Start End Encounter Admission Attending Care Care Encounter Source Date/Time Date/Time Type Type Clinicians Facility Department ID 2023-02-01 Inpatient ER NILDA, SLSL SLSL [id number] SLSL 09:51:23 SONNY 2023-01-31 Inpatient ER NILDA, SLSL [facility] [id number] SLSL 20:10:12 EMERSON 2023-01-29 Inpatient ER TAYLOR SLSL SLSL [id number] SLSL 13:27:19 JOSE ALFREDO GILLETTE 2023-01-29 Inpatient ER TAYLOR SLSL SLSL [id number] SLSL 07:37:41 JOSE ALFREDO GILLETTE 2023-06-07 2023-06-07 Outpatient REYNA EMMANUEL [id number] Reyna 08:30:00 08:30:00 JARRELL Diezybol d 2023-03-19 2023-03-19 Outpatient PREREYNA WELDON [id number] Reyna 00:00:00 00:00:00 VERNELL Seybol d 2023-03-12 2023-03-12 Outpatient REYNA EMMANUEL [id number] Reyna 00:00:00 00:00:00 JARRELL Seybol d 2023-03-08 2023-03-08 Outpatient LAB90 REYNA YEPEZ [id number] Reyna 08:45:00 08:45:00 Seybol d 2023-03-08 2023-03-08 Outpatient REYNA EMMANUEL [id number] Reyna 08:00:00 08:00:00 JARRELL Seybol d 2023-02-20 2023-02-20 Outpatient REYNA EMMANUEL [id number] Reyna 10:00:00 10:00:00 JARRELL Seybol ana 2023-02-20 2023-02-20 Outpatient REYNA EMMANUEL REYNA [id number] Reyna 10:00:00 10:00:00 JARRELL Seybol ana 2023-02-20 2023-02-20 Outpatient REYNA THACKER REYNA [id number] Reyna 00:00:00 00:00:00 VERNELL Seybol ana 2023-02-13 2023-02-13 Outpatient SFA SFA [id number] Rangel 08:25:07 08:25:07 [id number] F Jesse 2023-01-28 2023-02-04 Inpatient ER MUNGUIA [facility] Medical ICU [id number] SLS 18:37:00 15:02:00 EMERSON 2023-01-28 2023-02-04 [facility] ER Annelise Carvalho [facility] [id number] [facility] 18:37:00 15:02:00 Encounter Rafiq Zelaya [facility] 2023-01-28 2023-01-29 Inpatient ER TAYLOR [facility] [id number] [facility] 19:41:51 00:00:00 JOSE ALFREDO GILLETTE 2023-01-28 2023-01-28 Travel [facility] [id number] [facility] 00:[facility] 00:00:00 [facility] 2022-04-02 2022-04-[address] [facility] [id number] Rangel 10:00:27 10:00:27 [id number] F Jesse 2022-04-02 2022-04-02 Outpatient [id number] 00:00:00 00:00:00 Visit [id number] 2022-02-16 2022-02-[address] [facility] [id number] [facility] 08:59:00 13:33:00 , JOHN 2022-02-16 2022-02-22 Hospital ER Ara Chang [facility] [id number] 08:59:00 13:33:00 Encounter [facility] 2022-02-17 2022-02-17 Orders [facility] [id number] 00:00:00 00:00:00 Only [facility] 2022-02-16 2022-02-16 Anai Chang [facility] [id number] [id number] [facility] St 00:00:00 00:00:00 Ara [facility] Results Test Description Test Time Test Comments Results Result Comments Source Tissue Exam 2023-02-11 10:06:01 Test Item Value Reference Range Interpretation Comme nts Case Report (test code = 104) Surgical Pathology Report Case: [id number] Authorizing Provider: Sonny Munguia MD Collected: 02/01/2023 10:46 AM Ordering Location: [address] Med/Surg Received: 02/01/2023 10:47 AM Pathologist: Kiesha Radford MD Specimen: Kidney, Right DIAGNOSIS (test code = 3220) [id number] pc mUTyDObzbwGoSKwsnJcsEFEfPUvwOS9xwUfdrYg3 pKoaIWGcsgT1rYMpGZuyu9afHDR7h7glpsxsLGTs VBlqMv9uxQGvjJvdIiZhLRRmORn7oV05KVTllF5w hVJkOIz8QCWoyAKbpxAbKsJfZMEvpYHcuFW4UFIp KR7gedpwFNhlEScdOVLgivB7UGHrbYUoY4JyNNFe SE3yfythJKT2MImeIKWhJSL0DbRrHKXip5Avulp6 RqWvfORhLZpwpHEbvhwbosXiFDnUOM4EGAatZvyO WRCqVWYZS4NHWJoivNEeNMNsGWTURfGNT5LLWKVD ZFODBSyNCNiCG06ZBmCNV5PKGJBZM8OUUhhrA6sX W2BsAOQypHUuaPxmvjOhXAtpo9GeQPjhKXBbJE3f cIqhVUNvJC3tVSVdC4dfaY7vnpa7QoBwYMXrMeM7 ZLBpqvF6Bur5RHTeOLblt0jln5QmNZBkPYi9bAzf HbZtACKvg3bhejKsZtPrGDNbLURsABEoiTSoY679 u2wgl8cjbyGeuTO0OOIuHLN3JXplkyFbbwZ0YApr hJKoHnB8UKacgrHmBThiwnMvikNfVpk4JGFvU736 EMT5aAwdc6ypOVQ4BPOsWBOhKxUhZh3uvIGtW455 FYSfNUNBPURxxLj2TXKxsvEvwxTizIOBz982P476 x8gpVNYqeuDyqXhUiqabo7piU324OFQtpLSubnHp CkViUVPzuDLmzVA6PNPrBX2gmikqUPerMIwrOQDy pdZ8NCQfsUOjF3QjLLIvQC3qwhyuTJO3AFegZXRh UGP7NlYbEFXof4Jhsku6GsKewe4gkd59TCZ6w4Ag yDqjNUU4DMP7CcNvDl2mqYIpDBYaNY8yHbLpgOYl OLNnha92oZhuFMdjBRX6HDYjkvNqq4Ulu2zsTvPr ttRcR8fhH3CmMYFiYYEnHLSlPdPfipMrb7Xzd0Yj xIXfkWt1j2iiJVByYTJrbRnbw5rtTIL8DCPygVRm N3mjqL4tNHZgKD4cdzzxs9lvJInqFZimHGMqoZK4 xeD3MCGvjNQfB6FtnK7lFDJuNYlfHPUrhbo9TjJp Iq2ejXKdcKjsGTflCgjjZBlzZFPtnnHytrFwnMtm ZGVjXHBsYWluXHBsYWluXGYwXGZzMjRccWxcbGFu QaSyPkZalCfxrXnzETknBoJmZLJzOUrpL0ufPjFs IuRgJgp7MCTdqUFkMXMeEah2HAVrfJEpXZIOzMqi lY2eGJEhvYzpxY3yqPA9RGRdsuZasIQWoS6rSZOM fS4qIgClIAPtLkY9DWqkXmYvvWCiuF8= COMMENT (test code = 3603) l0kvlIJzZLIdlYPlPWMcC1cmqiZoDXIbgDAjB8Up zzpxTYfwUN0pPQ2roAhhrJLngKZhBTZhCwKfy7pw t984jIKcd2guVDQZsmmtlYl6jMsoX64ui5R6Hiei T68pmCXnPMD1BODrQITpoLRpRUNpZYV4IGBgaPYy J0jqSVEtFM3panfwQFhsUUosWBKtkRV8PPPdhVMr Z8JzYHUnWFeeLBPjclu4PnFfPy1vqYKfiZefQBrm VMZjOGDwYBawXSSoWqMpQDmgCPLulJVpE2ninnMb h5MsfWXnATnrzfJhxtQqfv2qTRPzWoB5uOQaERnq L25xg3leVZB3QJEFmklqmoLtVJZfa8FrcE4krTBz VFUfWOQag1puX7twkGDsiaD9EcXqZuYfLtZuTLVm MOS7UZFzmB2tcKBayZ== CPT Code(s) (test code = 5001) e6pvqDVpTLYaeJBdBDNfJ0mtcgQcGEUhjESx Z3Bh tmxqLLbeCH6eLP6etHvvqEUccBAwXLDiGkBei0ho r326kUEsn8wxLEFKggmvdNk3hEfeK42cp4C1Bopk Y54omZMwASJ8QBIjCERcwUOuYIAlKGJ3XZLwuAUk G1vjGKBlTA8ocznxMXrcMTmiMMXyjVA5PXCdpGHx U2BiGZTcDWcjCKKayyy4RyWsUb7erVLwhJsuDStm YXJkXHBsYWluXGZzMjAgODgzMDBccGFyfQ== CLINICAL HISTORY (test code = 3356) q2fcxGXwEULghZGfMVMsV8uajcRePNR llEDgF9Xe iysnZPhbOX7oNK8fjTvlgUDwcACgDZJvEsMvd2el a942tOEud9auWHSEYIgsZDBQYAy4t4gdDFEDopbo sAw4wUioK05vm4Q8JnhzC60chUHhEAM3OWAuRZYw hBPwRWTcNXH6DWLsbHAiC2yoMVDeXW3twkysWNvz SMtsKVJbiUN8ETDunYGjY4SmQKPlBSleANZujhr7 JeViXd1epTHyvAueXUqqZYPhXRTjFFihXWSoBDUr ZoVwXPrkSWO5ET0emZFuSKEdhWBajyfpVYdrMqU3 ZAMfCKRDlSNmbmkhSTeoGQ0swBWwvINcTBAeJTM3 AXnuYVlEEPmuJVuoi8KebDcpEFWqhsmtq9SkvlPy aGVhcnQgZmFpbHVyZVxwYXJ9 GROSS DESCRIPTION (test code = u7smlFDgMDNbmFJzAIXmY5gjgmLtKKMecXNz Z3B [id number]) ilfrWJzaNE4hIH3snGjbxBNacIRkSWDxCiNew2as l534lWUnq8ejVDMZKTjeHMCZIAs4l4ngIRUGcmfh fRh6tWphT73mh2K8TtunQ41diJFvORJ9UHKlXMLr bMAySDMrUOC4DOJmtEYjP3puBEZiPL3xgfduMGqk PXjsVGKnkSX7EMPqzOJbN4YjISMcNXgcLADizlj2 PvHeUf7yjOIupTsjGDsfEyiieZvfd1TjmJTwCRom MSWrGAVhRBemKQZhY9OXTDLzZSJbAOS3MSzqUZPF TIClNpVhCki8HMNTMBBzCKToKgJfRka2NfUnWWXV IDEyMzAwMDAwMDkgXFxuaCBcXHQgMSBcXGZsIFxc hlC1g2alFZEekURiIIY1MOhryGZaPSBsGLWrLIwv YwOXJwSxXiTaMqS8Dpq8VGNiZQc3HXqzG1KWRBTa DVZ7Mzs0GQL8WmW3SAp2QQGXYo5bPla4DhYdXzF3 REH3SBN0ZWhubNTjXJjoi5OjRqGdDJAzFNhauvP7 FOCgxfDklSiruJ5xVjWjThHwXrAYTiLLwYHpUKhf FGWmR7t7XSJgyoakVNYgYEOkJsQsOOMtV7imKcSi XTGcTvClTQVrU8ghRUWkYFOuNLduRKPnVPBfGmSo OoHtJWz3TMGajEWhSSStxO9zaPQpK00gMSsvjAQt p5FwbI9fLTTjNcQkwDXcdvTnNL3guKopDOIAiWYw u0XuJ2xwEQ2ueMSvr2PohTh5gJMjQDufFLOovh0j pObxPRRjYBHbk1H5ZGLkTNQudC6eUMEeYV9wHGmp Wn0hXFHdfefwpiMmk5NsLGIytGEsiFtetmdjGQMp Y7QeA4OqmcC9p8kxrJwqb7GuaCYgNL1ydJFzzW== MICROSCOPIC DESCRIPTION (test code = g4lgoXDnAFQtgTHxEFQuB0hccxYyFO UjlMSgM4Ik 3371) gwsqDDowEU4nRO7zeFvccYKchKIwRJXiJiXqm5rs s750zGTqi0jpIGCPjryyzPo3dDhjD31oi8G3Sgkf F92zwYRyCSG9NZGoKHJqxDKpTCGoHBY1AGZklKXs R3cfARUoQP1dlmuuCNpbSLlwXYPmaPE9DBNfxFUb C6PwMWJfZWixVIEfhsl8ZbDlEz0klWDogUmnONnq YXJkXHBsYWluXGZzMjAgUExFQVNFIFJFRkVSIFRP SXXZWDBSQ5OMWoKZZVAHCY2WMULRV6AwWTDLUPCX F90VQOFPLnHKTm0YXPrZDotwOTB0 [facility] CenterTissue [id number] 10:06:01 Test Item Value Reference Range Interpretation Comments Case Report (test code Surgical Pathology = 104) Report Case: [id number] Authorizing Provider: Sonny Munguia MD Collected: 02/01/2023 10:46 AM Ordering Location: [address] Med/Surg Received: 02/01/2023 10:47 AM Pathologist: Kiesha Radford MD Specimen: Kidney, Right DIAGNOSIS (test code = c2ocrRDcINDax9vmLWXbqW 3220) FuZzEwMzNcZnRuYmpcdWMx IHtccnRmMVxlcGljMTAyMD scMB2jaAyxtXq4jDjzAIUe hgV3tAEjEKbvp1crQJL0l3 autietHBWfUCyvEv6lqVBc aPntLnFyBBBqFDj9cL41MV BraA5ueAWrPBi7TXExrGCm jcJqXdQnJJUowVXkuWF5TK AjGO4hbernLElgXMhwEDTs qoI3GFRijUPeU6HwQSAgSG 0tlbxbALB5WRkiGOLyRKR7 LvAxBGHzt1Hotkp1VcFitB FyZFxwbGFpblxmczIwIEtJ MH7IYPgsJrdLWQVbJTEHQ9 BTWTpccGFyICAtIEFEVkFO B7SCKGNQWZLCUQfGEBsYW3 3DZrTFB6BKYNRLO5DYFssf C3lPR9NmGERbtKTiiPuysm RrGNhkm1LcEVlhJAOdBX7k yXwcWJGqZI6nKTKlI4tvrR 2eyqv6OmOqQKUlTuT8OWIm gpU6Yzf1OKOjKFnwo3pew6 MtQZKuNJg5sPwdXkBtAVSb d5lfvjObAjXyUWSsWYWwEU GjlGIoJ768s8qmo4wcnnQz nRQ7EVZcHXW3ACgtagQgrm W7YBdphKKeJgZ7CUpxezIo IDswqzUfjbLcAev0BGGdP4 20PPF2nAols0mmOAW7DUKg RQAtRsOgQq8jpIDhX582LM QiDJXTGEEegWf1WINqvuMv uiJhvYTQl134L351i4nyKX XjljRyaHiSxwprw7giS424 XHBhcGVydzEyMjQwXHBhcG AdmIJ1IABdHI0ovojeGPrz OBdyQSCxicQ3JAHrhCRdI1 EzSJDgRV1rucztSSM0LEag FKUdARG6YdRhFIXtq7Hxou o7KqIgdt6njx63VAD5l9Nd cIogDCB8LNZ9DtQnNo3ivA UrUGGfRE6uVcRhoNJyFGFe oh68iLtbSJkcKUM9WVHgfl Oow3Gpi8qgDvQyftHgT6hc T4ZzNBNjLJJlCYKgSxPyta Fbr7Dly8MkuJPyaJb0z6sj GKDaARQbsBnsr6exXHR3FB BjpNPpW2sbaJ0tRKZzKU9e dfplw3cwMIdnHNgdAXBreZ K4unW1FAItkDXuT8HdsP3c BUNdOCayYQNzsdp8UlKfSn 9vdGVyeTcyMFxzYmtwYWdl XHBnbmNvbnRccGduZGVjXH BsYWluXHBsYWluXGYwXGZz MjRccWxcbGFuZzEwMzNcaG ljaFxmMVxkYmNoXGYxXGxv K1yvKwWmHyWvDaq7LCQdmP BvPDPyRlz4LJIhrWJaFFUH wYfzjM9oSOXjnItkgS9piZ O1AYTsznUrgYXLvO9nVRFG fN2kFmZjRGMiUdA7MMlwJp NccGFyfX0= COMMENT (test code = o7fzmYFzXBTmuKQkDLPsP0 5758) tdywCbOMDanCAqB4Wejzhm EVxbIN1xVB3lnNlzmFKusF DxPIAjXgHfy0zuf045aFAv x6tsLHHHmkmnvPo8hPrzR3 6ob4X8XrdvM04aaRAhMLX0 VPXvIBLitLGhARXmRFD4ZU PydSXpD1hxFTSkBP6vblgr FHemXCgeLKZqcKN6VPMuxC HmV0DaZJIhXIdfNTLvvzc0 JdBsDn6leCAatLhkCNhpMA JkXHBsYWluXGZzMjAgVGhl JEAzbLVmS4ohtaOlm5FyhC HoDKzsoeWyzlQxca2eTHZe IiR2fLMfODvwO29lw9kySZ T5QMVNzzzbptJwAEIjh3Cg bT6zvKUaCNKhHYTiv3bdD5 bvcMUuwaN8JwZgYaJpYsFl YOWvIIW1EEDkxS8quQFeiT == CPT Code(s) (test code m3zktIDcTBMvoHPgSBJdX9 = 3357) nvglGnEOWvkDToM2Vayjhx ZCqcLC8gPR3hsKqtjIPdpY AhGNJpDkUwc1fve040lLUh o4mxFOPZejokjIw3bBlnI4 9md3B9OnwtV64uyHXmISF8 YYAkFUPidXVcLPCfVSR9UR DciYGwC8gvUOBzVJ4frzbp NLieSZeuQKPzhJS0KLLthI CsD5ZrCNJtFFbvEAAoitz3 YmCvZc3ydJOmvHraERzeYH JkXHBsYWluXGZzMjAgODgz MDBccGFyfQ== CLINICAL HISTORY (test u7avsTNaKVUhqADhWRKiD2 code = 3356) dxzoCfDKSzzDLeS4Yrajrg JCakZT4nQC3jkDepnVGphN MsBUOtDsTjn5yel667zQRb v9yzGTHGMLdwPQCIQRc9y9 qhRPOTrpktiVw7nNgjA91g w9K0DzxvH97wySSbUXB7CJ PeALQpoBVmWXRbPIE2DZLc lYPnS6ekUMAwMC3yxxnsCA ftFApqLOBgcPK1MFApdPHb E7IuWHVxYBihCVAifuk3Co AaKq7tfMGroRixKDewOAAd XHBsYWluXGYxXGZzMjAgSH ymEGL0TF3hzKDcSXFkkNXi yoavNAgsNkO4JALnPZEQaZ VlotpeBJnbET9gdIZuiUHw LWIeJAS3UCwbFIpZHLktWK jsw2DbfFftGVWmlqwwp4Ic dmUgaGVhcnQgZmFpbHVyZV xwYXJ9 GROSS DESCRIPTION (test t7jwiSGnJROtsFJgTXVgZ2 code = [id number]) qcypPfUBDasGEkK9Jmcipa NYuzBY8yER3coYohtVUqvQ OtEEDlOiUlb6vrs433lLEd f9haFGLOKKlgTXWUOGr2u6 qkKLUCrxywfRv0dMnaF17i n0L2UjoeU83ejXBcDVH9KB FrMAErtCOwMXGyEJN2BNFx rYXeZ8vnRNEzLI9yrwoeLX emLBivNOGkgXI4WEAbfSKw G5AlKLHkEBeaPZAzxjh6St OkXk8mkRNycFeaOJtgAkua hAqdk3YzuBXbLCatRIVeYG TpPJovRGSqU5VJWZHrDNPv VNI5TDmvNJYEJDEpLcUzVu r8MWHWUHGtSGZbIgRiAum0 NiIgTFJSIDEyMzAwMDAwMD kgXFxuaCBcXHQgMSBcXGZs BIkgqvH8e3hcPHWdzKRrNJ C4KVfxyPCaDCNfQKKvWIuy BlSGMkJmGnTpWrD1Tls2VU OiOGh5DUmlS5FTRCSnDVA6 Ogl7IVV0EpB2EIu4DMIKFc 9fJna8BtVkPaW9MEO1GBB5 NBorgIQnHBapg9AdOtKwMX QbOAvthlK3SAUdzqKxvYpy uU6jEgQjPzAsNpZWDoWBcD OuXUyuYQAaH3x1LQFpsuto WSRmQYLoDkZzLMOmY3siCu RpKFFtKlHcEWMaG7brWAFk XHBsYWluXGYxXGZzMjAgUm BsOCs7PBNilRRwQBNrwP5j hZYiN82pJZrxpRCxh0ChgM 3dUONnPoJczPFnbiFrSR6a dGpcZZDGxSGjs8ZqD6joNF 0ndZJhp7VynCj7wBEaFQcl OCUvzt4wvIthXEQhXYRqd1 Y9INOjUIEggR5qHFKbVO3m DFpcKk9jARZduvlprxUei6 IgZXZhbHVhdGlvbntcZXBp A8CcD4JwaqB6n6exfMdet7 CswXEsOA2teHLgaH== MICROSCOPIC DESCRIPTION v4rwdDFiWSRonJLoYMUsN0 (test code = 3371) fzoaXrYZKnqWViM9Wcynzp RQjnYJ9zEG7lrXgzpJAxwE ZfBOLhXzHhh4kft812oCRm b9atBJCEdiwpoWj2jFonR8 3cc2A4BokrK16riPSuYFB1 GAYqMVAmuDVoIQEhETG6AC EfeKDiP2upJOHtHG6haqca AHrfPTygPCBwcWH8TMYxsX GyX2KkYAUyGUwuESUkjmp8 RaCdGc0pcLFbcUcsBPwmMT JkXHBsYWluXGZzMjAgUExF QVNFIFJFRkVSIFRPIFRIRS WKC7WIErSPJALMEL4BFYQM N8YfDPUJZBHVQ05SJJTYFq NOZo3PXRpYLuwmISR5 [facility] CenterTISSUE [id number] 10:06:01Surgical Pathology Report Case: [id number] Authorizing Provider: Sonny Munguia MD Collected: 02/01/2023 10:46 AM Ordering Location: [address] Med/Surg Received: 02/01/2023 10:47 AM Pathologist: Carmella Radford MD Specimen: Kidney, Right KIDNEY, RIGHT, BIOPSY: - ADVANCED DIABETIC GLOMERULOSCLEROSIS, CLASS IV Signing Pathologist Direct Phone Line: [phone] signed by Kiesha Radford MD on 02/11/2023 at 10:05 AMThe physicians office was informed of the diagnosis by [employer] pathologist on 02/04/2023 at 12:51 [id number] crisis, diabetes. Chronic kidney disease stage III, diastolic congestive heart failureA. Kidney, RightReceived is a single core, m easuring 2.2 cm in length. The specimen is submitted in formalin and forwarded to [employer] for evaluationPLEASE REFER TO THE SCANNED REPORT FOR ADDITIONAL INFORMATIONDRUG SCREEN, URINE, [id number] 06:46:43 Test Item Value Reference Range Interpretation Comments SCAN RESULT (test code = 3811797) SEE SCAN Drug screen, urine, syqbqovzkaeds0712-67-92 06:46:43Scan Biwyso1902/08/2023 6:46 AM [employer] [facility], urine, lqcoaatplualp7698-68-49 06:46:43Scan Buufid6702/08/2023 6:46 AM [employer] [facility]Glucose [id number] 12:27:48 Test Item Value Reference Range Interpretation Comments POC-Glucose Meter (test 132 mg/dL 70-110 H : TE STED AT [facility] code = 1538) [address] [id number]: Noc Analyst/Techni lorna ID = [id number] for Jennifer Syed Lab Interpretation (test Abnormal code = 58384-9) [facility] relkr0609-77-43 12:27:48 Test Item Value Reference Range Interpretation Comments POC-Glucose Meter (test 132 mg/dL 70-110 H : TE STED AT [facility] code = 1538) [address] [id number]: Noc Analyst/Techni lorna ID = [id number] for Jennifer Syed Lab Interpretation (test Abnormal code = 21731-2) [facility] CenterPOCT[facility]GLUCOSE [id number] 12:27:48 Test Item Value Reference Range Interpretation Comments POC-GLUCOSE METER 132 mg/dL 70-110 H : TESTED A T [facility] 1317 (BEAKER) (test code [facility], = 1538) [facility] 77 8: Noc Analyst/Techni lorna ID = [id number] for Jennifer Coy POCT-GLUCOSE [id number] 07:02:40 Test Item Value Reference Range Interpretation Comments POC-GLUCOSE METER 122 mg/dL 70-110 H : TESTED A T [facility] [address] (BEAKER) (test code [address], = 1538) [facility] 77 478: Noc Analyst/Techni lorna ID = [id number] for Lorena Champion SFXSPVUPZ5313-30-26 06:52:51 Test Item Value Reference Range Interpretation Comments MAGNESIUM (BEAKER) (test code = 2.1 mg/dL 1.5-3.0 627) Noc Analyst ID - QUNG16Gzyqhrfx ID - OLFG27Qpunvlot ID - PIVQ26Eqkfpwup ID - [id number] BASIC METABOLIC [id number] 06:52:19 Test Item Value Reference Range Interpretation [...] not appl icable for dialysis patien ts Noc Analyst ID - ITOE85Cevxwxnd ID - TDKA61Wmjdmoqr ID - EFKY30Twxshqcc ID - BRNL14Xvhbscdr ID - UKYS14Pvpctvqc ID - HGPK97Zpsjpxxf ID - WLQF86Wrymmafs ID - GMKF55Hrwofgdw ID - GLMW69Pqaeikuo ID - [id number] 06:50:15 Test Item Value Reference Range Interpretation Comments PHOSPHORUS (BEAKER) (test code = 4.4 mg/dL 2.5-4.5 604) Noc Analyst ID - [id number] EYNVQ0603-78-90 22:04:05 Test Item Value Reference Range Interpretation Comments POC-GLUCOSE METER 158 mg/dL 70-110 H : TESTED A T [facility] [address] (BEAKER) (test code [address], = 1538) [place] [address]: Noc Analyst/Techni lorna ID = [id number] for Lorena Champion POCT-GLUCOSE [id number] 17:40:59 Test Item Value Reference Range Interpretation Comments POC-GLUCOSE METER 145 mg/dL 70-110 H : TESTED A T [facility] [address] (BEAKER) (test code [address], = 1538) [place] [address]: Noc Analyst/Techni lorna ID = [id number] for Cristy paras, Arti POCT-GLUCOSE [id number] 12:15:01 Test Item Value Reference Range Interpretation Comments POC-GLUCOSE METER 129 mg/dL 70-110 H : TESTED A T [facility] [address] (BEAKER) (test code [address], = 1538) [place] [address]: Noc Analyst/Techni lorna ID = [id number] for Cristy es, Arti POCT-GLUCOSE YREUH7085-88-40 07:37:42 Test Item Value Reference Range Interpretation Comments POC-GLUCOSE METER 133 mg/dL 70-110 H : TESTED A T [facility] [address] (BEAKER) (test code [address], = 1538) [place] [address]: Noc Analyst/Techni lorna ID = [id number] for Tray Cantrell [id number] 06:52:24 Test Item Value Reference Range Interpretation Comments MAGNESIUM (BEAKER) (test code = 2.4 mg/dL 1.5-3.0 627) Noc Analyst ID - [id number] ID - [id number] ID - [id number] ID - [id number] METABOLIC YLFNX7966-87-89 06:51:22 Test Item Value Reference Range Interpretation [...] not appl icable for dialysis patien ts Noc Analyst ID - [id number] ID - DYTRNSSLE304Subwzoud ID - INJWDTHBJ019Mtlhyvin ID - KIALJYEJC683Svmnzjgh ID - VLEBOIZTU102Aoafpdfq ID - FQMEXUWBG478Iawqnxzy ID - SPUYIDIQE455Tpivugfn ID - JTVYNILNE581Aopldbgt ID - ANEGGLOEA606Slcglptt ID - IHZNAMYIB127MHCSBPUVRK4480-39-56 06:49:21 Test Item Value Reference Range Interpretation Comments PHOSPHORUS (BEAKER) (test code = 4.5 mg/dL 2.5-4.5 604) Noc Analyst ID - [id number] (HEMOGRAM ONLY)2023-02-03 06:39:08 Test Item Value Reference [...] 0-0 (BEAKER) (test code = 413) POCT-GLUCOSE [id number] 21:38:58 Test Item Value Reference Range Interpretation Comments POC-GLUCOSE METER 122 mg/dL 70-110 H : TESTED A T [facility] [address] (BEAKER) (test code [address], = 1538) [place] [id number]: Noc Analyst/Techni lorna ID = [id number] for Magda [facility]jul[facility] cesarAlee alexis POCT-GLUCOSE [id number] 16:33:23 Test Item Value Reference Range Interpretation Comments POC-GLUCOSE METER 147 mg/dL 70-110 H : TESTED A T [facility] [address] (BEAKER) (test code [address], = 1538) [place] [address]: Noc Analyst/Techni lorna ID = [id number] for Jennifer Coy POCT-GLUCOSE [id number] 12:06:21 Test Item Value Reference Range Interpretation Comments POC-GLUCOSE METER 159 mg/dL 70-110 H : TESTED A T [facility] [address] (BEAKER) (test code [address], = 1538) [facility] 77 478: Noc Analyst/Techni lorna ID = [id number] for Jennifer Coy URINE [id number] 09:50:08 Test Item Value Reference Range Interpretation Comments CULTURE (BEAKER) (test ESCHERICHIA COLI A > 100,000 col/mL [...] of and prior to urologic procedures.BASIC METABOLIC [id number] 07:27:48 Test Item Value Reference Range Interpretation [...] not appl icable for dialysis patien ts Noc Analyst ID - JAQUELYNNEOperator ID - JAQUELYNNEOperator ID - JAQUELYNNEOperator ID - JAQUELYNNEOperator ID - JAQUELYNNEOperator ID - JAQUELYNNEOperator ID - JAQUELYNNEOperator ID - JAQUELYNNEOperator ID - JAQUELYNNEOperator ID - [id number] 07:27:48 Test Item Value Reference Range Interpretation Comments MAGNESIUM (BEAKER) (test code = 2.2 mg/dL 1.5-3.0 627) Noc Analyst ID - JAQUELYNNEOperator ID - JAQUELYNNEOperator ID - JAQUELYNNEOperator ID - [id number]5 07:25:13 Test Item Value Reference Range Interpretation Comments PHOSPHORUS (BEAKER) (test code = 5.7 mg/dL 2.5-4.5 H 604) Noc Analyst ID - [id number] (HEMOGRAM ONLY)2023-02-02 07:03:05 Test [...] 0-0 (BEAKER) (test code = 413) POCT-GLUCOSE [id number] 21:32:26 Test Item Value Reference Range Interpretation Comments POC-GLUCOSE METER 103 mg/dL 70-110 : TESTED A T [facility] 1317 ([facility]) (test code [facility], = 1538) [facility] 77 478: Noc Analyst/Techni lorna ID = [id number] for Aaron Cotton POCT-GLUCOSE [id number] 16:04:23 Test Item Value Reference Range Interpretation Comments POC-GLUCOSE METER 146 mg/dL 70-110 H : Notified RN/MD: TESTED ([facility]) (test code AT [facility] [address] = 1538) [facility] [address]: Noc Analyst/Techni lorna ID = [id number] for David Diego RENAL [id number] 15:04:02 [facility] : 1970 Sex: FPROCEDURE:Image guided right renal BiopsyCLINICAL HISTORY: CATHERINE on CKDOPERATOR: Steven Oneil MDANESTHESIA: Patient was reassessed immediately prior to theadministration [...] yield a sample. A new biopsy gun wasobtained at this point for a third pass, which also did not yield anybiopsy sample. Due to 3 18-gauge passes, decision was made not to makefurther passes to decrease the risk of bleeding.A sterile dressing was placed. The patient tolerated the procedure welland was returned to the holding area/floor in stable condition.IMPRESSION:Successful US-guided right renal biopsy.Electronically Signed By: Steven Oneil02/01/2023 15:06 CDTWorkstation Name: [id number] 12:23:52 Test Item Value Reference Range Interpretation Comments POC-GLUCOSE METER 150 mg/dL 70-110 H : Notified RN/MD: TESTED (BEAKER) (test code AT [facility] [address]) [place] [address]: Noc Analyst/Techni lorna ID = [id number] for David Diego [id number] 06:31:12 Test Item Value Reference Range Interpretation Comments MAGNESIUM (BEAKER) 2.2 mg/dL 1.5-3.0 Specimen moderately (test code = 627) hemolyzed Noc Analyst ID - [id number] ID - [id number] ID - [id number] ID - [id number] BASIC METABOLIC [id number] 06:29:55 Test Item Value Reference Range Interpretation [...] not appl icable for dialysis patien ts Noc Analyst ID - [id number] ID - CYDA59Eyadrawp ID - XRWF16Unyipvlm ID - WVDK85Dlkojwxt ID - ZPFD04Rrakcelb ID - KGPC22Hqdeougr ID - LBEJ15Fvddezlu ID - MCLR00Tsqmzcyv ID - AGVI30Ilvvltgz ID - [id number] 06:28:27 Test Item Value Reference Range Interpretation Comments PHOSPHORUS (BEAKER) 5.5 mg/dL 2.5-4.5 H Specimen moderately (test code = 604) hemolyzed Noc Analyst ID - [id number] (HEMOGRAM ONLY)2023-02-01 06:08:13 Test Item Value Reference [...] 0-0 (BEAKER) (test code = 413) POCT-GLUCOSE [id number] 21:14:18 Test Item Value Reference Range Interpretation Comments POC-GLUCOSE METER 84 mg/dL 70-110 : TESTED A T [facility] [address] (BEAKER) (test code = [address]) [facility] [address]: Noc Analyst/Techni lorna ID = [id number] for Lorena Champion POCT-GLUCOSE [id number] 17:33:48 Test Item Value Reference Range Interpretation Comments POC-GLUCOSE METER 115 mg/dL 70-110 H : TESTED A T [facility] [address] ([facility]) (test code [address] = 1538) [facility] [place] [address]: Noc Analyst/Techni lorna ID = [id number] for Artis ie, [place] IMMUNOFIXATION ELECTROPHORESIS (ROLLY)2023-01-31 17:04:24 Test Item Value Reference Range Interpretation Comments IMMUNOGLOBULIN G (IGG) 1117 mg/dL 540-1822 (BEAKER) (test code = 427) IMMUNOGLOBULIN A (IGA) 218 mg/dL 63-484 (BEAKER) (test code = 639) IMMUNOGLOBULIN M (IGM) 104 mg/dL 22-293 (BEAKER) (test code = 638) SERUM ROLLY ID (AKER) No monoclonal (test code = 1814) protein detected. [id number] Armand Saha M.D. ([employer]) (test code = (electonic 2597) signature) Clinical [facility] Pastor - SFSERUM [id number] 17:03:52 Test Item Value Reference Range Interpretation Comments IMMUNOGLOBULIN A (IGA) 218 mg/dL 63-484 (BEAKER) (test code = 639) IMMUNOGLOBULIN G (IGG) 1117 mg/dL 540-1822 (BEAKER) (test code = 427) IMMUNOGLOBULIN M (IGM) 104 mg/dL 22-293 (BEAKER) (test code = 638) SERUM IT ID [id number]([facility]) The IT result is (test code = 3817) inconclusive. Refer to ROLLY. [facility]-PATHOLOGIST-"[id number]" Armand Saha ([email or web address]) (test code = 3801) Sampson (electonic signature) Noc Analyst ID - ADMINPROTEIN ELECTROPHORESIS, SERUM WITH REFLEX [...] code area in the gamma region. = 7319) Refer to serum immunotyping and immunofixation electrophoresis. [id number] Armand Saha M.D. (BEAKER) (test code (electonic signature) = 4910) PROTEIN TOTAL SERUM, 5.1 gm/dL 6.0-8.3 L SPEP (BEAKER) (test code = 0718) [facility] Pastor - SFOperator ID - ADMINOperator ID - ADMPOCT-GLUCOSE METER 2023-01-31 12:30:17 Test Item Value Reference Range Interpretation Comments POC-GLUCOSE METER 113 mg/dL 70-110 H : TESTED A T [facility] [address] (BEAKER) (test code [facility] [address], = 1538) [place] [address]: Noc Analyst/Techni lorna ID = [id number] for Ajay Vaughn POCT-GLUCOSE [id number] 06:29:20 Test Item Value Reference Range Interpretation Comments POC-GLUCOSE METER 115 mg/dL 70-110 H : TESTED A T [facility] [address] (BEAKER) (test code [address], = [address]) [place] [address]: Noc Analyst/Techni lorna ID = [id number] for Saniya Ochoa BASIC METABOLIC [id number] 05:29:07 Test Item Value Reference Range Interpretation [...] not appl icable for dialysis patien ts Noc Analyst ID - LITOOperator ID - LITOOperator ID - LITOOperator ID - LITOOperator ID - LITOOperator ID - LITOOperator ID - LITOOperator ID - LITOOperator ID - LITOOperator ID - [id number] 05:24:38 Test Item Value Reference Range Interpretation Comments MAGNESIUM (BEAKER) (test code = 2.0 mg/dL 1.5-3.0 627) Noc Analyst ID - LITOOperator ID - LITOOperator ID - LITOOperator ID - VICTOR HUGO [id number] 05:21:59 Test Item Value Reference Range Interpretation Comments PHOSPHORUS (BEAKER) (test code = 5.5 mg/dL 2.5-4.5 H 604) Noc Analyst ID - LITOCBC W/PLT COUNT & AUTO [id number] 05:04:06 Test Item Value Reference Range Interpretation [...] PERCENT (BEAKER) (test code = 2801) POCT-GLUCOSE [id number] 21:41:04 Test Item Value Reference Range Interpretation Comments POC-GLUCOSE METER 120 mg/dL 70-110 H : TESTED A T [facility] [address] (BEAKER) (test code [address], = 1538) [facility] [address]: Noc Analyst/Techni lorna ID = [id number] for Saniya Ochoa POCT-GLUCOSE [id number] 21:40:57 Test Item Value Reference Range Interpretation Comments POC-GLUCOSE METER 139 mg/dL 70-110 H : TESTED A T [facility] [address] (BEAKER) (test code [address], = [address]) [place] [address]: Noc Analyst/Techni lorna ID = [id number] for Ajay Vaughn POCT-GLUCOSE [id number] 11:16:06 Test Item Value Reference Range Interpretation Comments POC-GLUCOSE METER 143 mg/dL 70-110 H : TESTED A T [facility] [address] (BEAKER) (test code [address], = 1538) [place] [address]: Noc Analyst/Techni lorna ID = [id number] for Jennifer Coy POCT-GLUCOSE [id number] 11:15:41 Test Item Value Reference Range Interpretation Comments POC-GLUCOSE METER 145 mg/dL 70-110 H : TESTED A T [facility] [address] (BEAKER) (test code [address], = 1538) [place] [address]: Noc Analyst/Techni lorna ID = [id number] for Saniya Ochoa CBC W/PLT COUNT & AUTO [id number] 08:03:32 Test Item Value Reference Range Interpretation [...] 0.00-0.20 (test code = 417) Protein, random [id number] 08:01:53 Test Item Value Reference Range Interpretation Comments Protein, Urine (test code = 1122 mg/dL 0-14 H 2888-6) Lab Interpretation (test code = Abnormal 69654-1) [facility] [id number] 08:01:53 Test Item Value Reference Range Interpretation Comments Protein, Urine (test code = 1122 mg/dL 0-14 H 2888-6) Lab Interpretation (test code = Abnormal 03292-5) [facility] RANDOM [id number] 08:01:53 Test Item Value Reference Range Interpretation Comments PROTEIN, URINE (BEAKER) (test code 1122 mg/dL 0-14 H = 1569) Urinalysis w/[id number] 07:25:15 Test Item Value Reference Range Interpretation Comments Color, UA (test code = Yellow 5778-6) Clarity, UA (test code Cloudy = 5767-9) Specific [place], UA 1.025 1.001-1.035 (test code = 5811-5) pH, UA (test code = 6.0 5.0-8.0 5803-2) Protein, UA (test code >=300 mg/dL Negative A = 60740-2) Glucose, UA (test code Negative Negative = 365) Ketones, UA (test code Negative Negative = 2514-8) Bilirubin, UA (test Negative Negative code = 30624-6) Blood, UA (test code = Trace Negative A 65178-6) Nitrite, UA (test code Negative Negative = 5802-4) Leukocytes, UA (test Moderate Negative A code = 5799-2) Urobilinogen, UA (test 0.2 code = 73758-9) Bacteria, UA (test code Many = 26433-4) RBC, UA (test code = <5 See_Comment [Autom ated 799-7) message] The sy stem which generated this result transmitted reference range : /HPF. The refer ence range was not u sed to interpret th is result as normal/abnormal . WBC, UA (test code = >100 See_Comment [Autom ated 16077-9) message] The sy stem which generated this result transmitted reference range : /HPF. The refer ence range was not u sed to interpret th is result as normal/abnormal . SQUAMOUS EPITHELIAL <5 See_Comment [Automa amina (test code = 51808-1) messag e] The system which generated this result transmitted reference range : /HPF. The refer ence range was not u sed to interpret th is result as normal/abnormal . Specimen Source (test code = 2795) Lab Interpretation Abnormal (test code = 79599-4) [facility]/Jbyobksibor2268-66-64 07:25:15 Test Item Value Reference Range Interpretation Comments Color, UA (test code = Yellow 5778-6) Clarity, UA (test code Cloudy = 5767-9) Specific [place], UA 1.025 1.001-1.035 (test code = 5811-5) pH, UA (test code = 6.0 5.0-8.0 5803-2) Protein, UA (test code >=300 mg/dL Negative A = 83714-5) Glucose, UA (test code Negative Negative = 365) Ketones, UA (test code Negative Negative = 2514-8) Bilirubin, UA (test Negative Negative code = 56061-1) Blood, UA (test code = Trace Negative A 59341-7) Nitrite, UA (test code Negative Negative = 5802-4) Leukocytes, UA (test Moderate Negative A code = 5799-2) Urobilinogen, UA (test 0.2 code = 43436-4) Bacteria, UA (test code Many = 25427-4) RBC, UA (test code = <5 See_Comment [Autom ated 799-7) message] The sy stem which generated this result transmitted reference range : /HPF. The refer ence range was not u sed to interpret th is result as normal/abnormal . WBC, UA (test code = >100 See_Comment [Autom ated 04536-9) message] The sy stem which generated this result transmitted reference range : /HPF. The refer ence range was not u sed to interpret th is result as normal/abnormal . SQUAMOUS EPITHELIAL <5 See_Comment [Automa amina (test code = 23813-8) messag e] The system which generated this result transmitted reference range : /HPF. The refer ence range was not u sed to interpret th is result as normal/abnormal . Specimen Source (test code = 2795) Lab Interpretation Abnormal (test code = 21928-4) [facility]/ [id number] 07:25:15 Test Item Value Reference Range Interpretation [...] = 1663) SOURCE(BEAKER) (test code = 2795) [id number] 07:07:53 Test Item Value Reference Range Interpretation Comments PHOSPHORUS (BEAKER) (test code = 5.3 mg/dL 2.5-4.5 H 604) [id number] 07:07:46 Test Item Value Reference Range Interpretation Comments MAGNESIUM (BEAKER) (test code = 2.1 mg/dL 1.5-3.0 627) BASIC METABOLIC [id number] 07:07:41 Test Item Value Reference Range Interpretation [...] appl icable for dialysis patien ts POCT-GLUCOSE [id number] 20:58:54 Test Item Value Reference Range Interpretation Comments POC-GLUCOSE METER 132 mg/dL 70-110 H : TESTED A T [facility] (BEAKER) (test code [address], = 1538) [facility] 77 478: Noc Analyst/Techni lorna ID = [id number] for Saniya Ochoa POCT-GLUCOSE [id number] 20:58:19 Test Item Value Reference Range Interpretation Comments POC-GLUCOSE METER 121 mg/dL 70-110 H : TESTED A T [facility] (BEAKER) (test code [address], = 1538) [place] [address] 478: Noc Analyst/Techni lorna ID = [id number] for Eric Daley HEPATITIS PANEL, [id number] 17:05:10 Test Item Value Reference Range Interpretation Comments HEPATITIS A IGM ANTIBODY (BEAKER) Nonreactive Nonreactive (test code = 498) HEPATITIS B CORE IGM ANTIBODY Nonreactive Nonreactive (BEAKER) (test code = 645) HEPATITIS C ANTIBODY (BEAKER) Nonreactive Nonreactive (test code = 367) HEPATITIS B SURFACE ANTIGEN (2) Nonreactive Nonreactive (BEAKER) (test code = 2585) Noc Analyst ID - ADMINCreatinine, random [id number] 16:01:01 Test Item Value Reference Range Interpretation Comments Creatinine, Ur 142.5 mg/dL (test code = 2161-8) JYOTI (test code = Reference Range: No JYOTI) NormalsOperator ID - LILY [facility] CenterCreatinine, random [id number] 16:01:01 Test Item Value Reference Range Interpretation Comments Creatinine, Ur 142.5 mg/dL (test code = 2161-8) JYOTI (test code = Reference Range: No JYOTI) NormalsOperator ID - LILY [facility] CenterCREATININE, RANDOM [id number] 16:01:01 Test Item Value Reference Range Interpretation Comments CREATININE URINE (BEAKER) (test 142.5 mg/dL code = 375) Reference Range: No NormalsOperator ID - VANANHSodium, random [id number] 15:53:30 Test Item Value Reference Range Interpretation Comments Sodium Urine (test 44 meq/L code = 2955-3) JYOTI (test code = Reference Range: No JYOTI) NormalsOperator ID - LILY [facility] Valleyodium, random [id number] 15:53:30 Test Item Value Reference Range Interpretation Comments Sodium Urine (test 44 meq/L code = 2955-3) JYOTI (test code = Reference Range: No JYTOI) NormalsOperator ID - LILY [facility] ValleyODIUM, RANDOM [id number] 15:53:30 Test Item Value Reference Range Interpretation Comments SODIUM URINE (BEAKER) (test code = 44 meq/L 243) Reference Range: No NormalsOperator ID - DALIA RENAL [id number] 14:30:53[facility] : 1970 Sex: FBilateral renal [...] Signed By: Kwasi Mendieta01/29/2023 14:33 CDTWorkstation Name: [id number], [id number]-[id number] 13:31:19 Test Item Value Reference Range Interpretation Comments VITAMIN D 25-OH (BEAKER) (test code 9.5 ng/mL 6.6-49.9 = 2764) Effective 03/06/2017: Reference Range ChangeNew: 6.6-49.9 ng/mL Previous: 13.0- 47.8 ng/mLRecommendedVitamin D Target Range: 30.0-40.0 ng/mLOperator ID - ADMIN Urea Nitrogen, random [id number] 13:08:33 Test Item Value Reference Range Interpretation Comments Urea Nitrogen, Ur 438 mg/dL (test code = 3095-7) JYOTI (test code = Reference Range: No JYOTI) NormalsOperator ID - ADMIN [facility] CenterUrea Nitrogen, random [id number] 13:08:33 Test Item Value Reference Range Interpretation Comments Urea Nitrogen, Ur 438 mg/dL (test code = 3095-7) JYOTI (test code = Reference Range: No JYOTI) NormalsOperator ID - ADMIN [facility] CenterUREA NITROGEN, RANDOM [id number] 13:08:33 Test Item Value Reference Range Interpretation Comments UREA NITROGEN URINE (BEAKER) (test 438 mg/dL code = 538) Reference Range: No NormalsOperator ID - ADMINHIV-1 ANTIGEN WITH HIV-1/2 [id number] 12:59:47 Test Item Value Reference Range Interpretation Comments HIV-1 ANTIGEN WITH HIV 1\\T\\2 Nonreactive Nonreactive ANTIBODY (2) (BEAKER) (test code = 2586) Noc Analyst ID - DSENSONPOCT-GLUCOSE [id number] 12:26:43 Test Item Value Reference Range Interpretation Comments POC-GLUCOSE METER 126 mg/dL 70-110 H : TESTED A T [facility] (BEAKER) (test code [facility] [address], = 1538) [facility] [place] 77 478: Noc Analyst/Techni lorna ID = [id number] for Jennifer Rodriguez [id number] 07:27:11 Test Item Value Reference Range Interpretation Comments MAGNESIUM (BEAKER) (test code = 2.1 mg/dL 1.5-3.0 627) Noc Analyst ID - [id number] 07:25:09 Test Item Value Reference Range Interpretation Comments PHOSPHORUS (BEAKER) (test code = 4.2 mg/dL 2.5-4.5 604) Noc Analyst ID - DSENSONCOMPREHENSIVE METABOLIC [id number] 02:22:54 Test Item Value Reference Range Interpretation [...] not appl icable for dialysis patien ts Noc Analyst ID - [id number] ID - CECVNCKGQ885Clkwotxt ID - RYXLWFXDN525Wifjffdu ID - EFRNUIZPX294Epyhvvpz ID - LGCKLLZZT598Pxywubjr ID - BBTAKFMJQ971Ictwpmus ID - BLDJUXDNH274Spbiuzij ID - ZGBXFOVIO620Rzvbkigo ID - LLFIVMPUO381Kewyglmr ID - WTXRVVTJZ846Kafmbigk ID - CHPBVASLR472Cnlsmecm ID - BKIJXRPIU669Sifeofcd ID - WQCYMQYUG660Slsbwwff ID - VWSENEIHQ474Fznyjbzr ID - DKGTLKPOD260Psfaeqow ID -[id number] [id number] 02:19:35 Test Item Value Reference Range Interpretation Comments TRIGLYCERIDES (BEAKER) (test code = 99 mg/dL 540) CHOLESTEROL (BEAKER) (test code = 197 mg/dL 631) HDL CHOLESTEROL (BEAKER) (test code 56 mg/dL = 976) LDL CHOLESTEROL CALCULATED (BEAKER) 121 mg/dL (test code = 633) Triglyceride Reference Range: Low Risk <150 Borderline 150-199 High Risk 200- 499 Very High Risk >=500Cholesterol Reference Range: Low Risk <200 Borderline 200-239 High Risk >240HDL Cholesterol Reference Range: Low Risk >=60 High Risk <40LDL Cholesterol Reference Range: Optimal <100 Near Optimal 100-129 Borderline 130-159 High 160-189 Very High >=190 Noc Analyst ID - [id number] ID - OHSVITQKG494Vifqxxzo ID - GETXLYZIG448Hquburdu ID - [id number] ID - AIUZKMVXA204Zaogjcvl ID - NADTNFRYW132URL W/PLT COUNT & AUTO [id number] 02:01:01 Test Item Value Reference Range Interpretation [...] PERCENT (BEAKER) (test code = 2801) PTH, [id number] 22:08:23 Test Item Value Reference Range Interpretation Comments PARATHYROID HORMONE INTACT 453.2 pg/mL 15.0-90.0 H (BEAKER) (test code = 577) Noc Analyst ID - [id number] 21:33:10 Test Item Value Reference Range Interpretation Comments POTASSIUM (BEAKER) (test code = 3.6 meq/L 3.6-5.5 379) Noc Analyst ID - JUSTINOperator ID - JUSTINOperator ID - JUSTINOperator ID - [place] XR CHEST 1 VIEW PORTABLE / [id number] 21:01:51 [facility] : 1970 Sex: FEXAMINATION: XR CHEST 1 VIEW PORTABLE / BEDSIDE INDICATION: hypertensive emergencyCOMPARISON: CXR 02/20/2022 FINDINGS:LINES/TUBES: None LUNGS: The lungs are well inflated. No focal airspace consolidation.PLEURA: No pleural effusion or pneumothorax.MEDIASTINUM: The cardiomediastinal silhouette appears normal in siz e andshape.BONES/SOFT TISSUES: No acute osseous injury.ABDOMEN: No free air under the diaphragm.IMPRESSION:No acute intrathoracic abnormalityElectronically Signed By: Bill Cabrera01/28/2023 21:03 CDTWorkstation Name: [id number], TIBC, % SAT. (WITHOUT FERRITIN)2023-01-28 20:51:05 Test Item Value Reference Range Interpretation Comments IRON (BEAKER) (test code = 547) 101.0 ug/dL 45.0-170.0 TOTAL IRON BINDING CAPACITY 250 ug/dL 250-550 (BEAKER) (test code = 769) IRON % SATURATION (2) (BEAKER) 40 % 20-55 (test code = 2590) Noc Analyst ID - DSENSONOperator ID - DSENSONHEMOGLOBIN [id number] 20:44:24 Test Item Value Reference Range Interpretation Comments HEMOGLOBIN A1C (BEAKER) (test code = 5.9 % 4.3-6.1 368) Noc Analyst ID - JUSTINCREATININE, RANDOM [id number] 20:19:04 Test Item Value Reference Range Interpretation Comments CREATININE URINE (BEAKER) (test 125.3 mg/dL code = 375) Reference Range: No NormalsOperator ID - DSENSONTROPONIN [id number] 20:17:04 Test Item Value Reference Range Interpretation [...] failure, acidosis, acute neurological disease, and persistent tachyarrhythmia.Noc Analyst ID - DSENSONCOMPREHENSIVE METABOLIC [id number] 20:11:07 Test Item Value Reference Range Interpretation [...] not appl icable for dialysis patien ts Noc Analyst ID - DSENSONOperator ID - DSENSONOperator ID - DSENSONOperator ID - DSENSONOperator ID - DSENSONOperator ID - DSENSONOperator ID - DSENSONOperator ID - DSENSONOperator ID - DSENSONOperator ID - DSENSONOperator ID - DSENSONOperator ID - DSENSONOperator ID - DSENSONOperator ID - DSENSONOperatorID - DSENSONOperator ID - DSENSONSODIUM, RANDOM [id number] 20:11:02 Test Item Value Reference Range Interpretation Comments SODIUM URINE (BEAKER) (test code = 64 meq/L 243) Reference Range: No NormalsOperator ID - [id number] 20:09:40 Test Item Value Reference Range Interpretation Comments MAGNESIUM (BEAKER) 2.2 mg/dL 1.5-3.0 Specimen markedly (test code = 627) hemolyzed Noc Analyst ID - DSENSONOperator ID - DSENSONOperator ID - DSENSONOperator ID - DSENSONLIPID [id number] 20:09:19 Test Item Value Reference Range Interpretation [...] Borderline 130-159 High 160-189 Very High >=190 Noc Analyst ID - DSENSONOperator ID - DSENSONOperator ID - [id number] 20:06:23 Test Item Value Reference Range Interpretation Comments PHOSPHORUS (BEAKER) 4.4 mg/dL 2.5-4.5 Specimen markedly (test code = 604) hemolyzed Noc Analyst ID - DSENSONPROTHROMBIN TIME/[id number] 20:01:00 Test Item Value Reference Range Interpretation Comments PROTIME (BEAKER) 10.1 seconds 9.3-12.0 Final Infor mation (test code = 759) (Auto Outp ut) INR (BEAKER) (test 0.94 See_Comment Final Inf ormation code = 370) (Auto Output) [Automated mess age] The system ROSTR generated this result transmitted ref erence range: <=5.90. The reference range was not used to int erpret this result as normal/abnormal . RECOMMENDED COUMADIN/WARFARIN INR THERAPY RANGESSTANDARD DOSE: 2.0 - 3.0 Includes: PROPHYLAXIS for venous thrombosis, systemic embolization; TREATMENT for venous thrombosis and/or pulmonary embolus.HIGH RISK: Target INR is 2.5-3.5 for patients with mechanical heart valves.CALCIUM, [id number] 19:44:43 Test Item Value Reference Range Interpretation Comments CALCIUM IONIZED (BEAKER) (test 0.89 mmol/L 1.12-1.27 L code = 698) PH, BLOOD (BEAKER) (test code = 7.42 1810) POC-Glucose [id number] 10:51:30 Test Item Value Reference Range Interpretation Comments POC-Glucose Meter (test 114 mg/dL 70-110 H : TE STED AT [facility] code = 1538) [address] [facility] [place], [address] 30: Noc Analyst/Techni lorna ID = [id number] for DAGMAR Kennedy Lab Interpretation (test Abnormal code = 41143-6) [facility]-Glucose [id number] 10:51:30 Test Item Value Reference Range Interpretation Comments POC-Glucose Meter (test 114 mg/dL 70-110 H : TE STED AT [facility] code = 1538) [address] [place] [address], [address] 30: Noc Analyst/Techni lorna ID = [id number] for STEPHEN -Michelet, [place] Lab Interpretation (test Abnormal code = 86399-6) [facility]-Glucose [id number] 10:51:30 Test Item Value Reference Range Interpretation Comments POC-Glucose Meter (test 114 mg/dL 70-110 H : TE STED AT [facility] code = 1538) [address] [place] [address], [address]70 30: Noc Analyst/Techni lorna ID = [id number] for STEPHEN -Michelet, [place] Lab Interpretation (test Abnormal code = 16328-9) [facility] [id number] 10:51:30 Test Item Value Reference Range Interpretation Comments POC-Glucose Meter (test 114 mg/dL 70-110 H : TE STED AT [facility] code = 1538) [address] [place] [address], 770 30: Noc Analyst/Techni lorna ID = [id number] for STEPHEN -Michelet, [place] Lab Interpretation (test Abnormal code = 40359-0) [facility] [id number] 10:51:30 Test Item Value Reference Range Interpretation Comments POC-Glucose Meter (test 114 mg/dL 70-110 H : TE STED AT [facility] code = 1538) [address] [place] [address], 770 30: Noc Analyst/Techni lorna ID = [id number] for STEPHEN -Michelet, [place] Lab Interpretation (test Abnormal code = 68408-4) [facility] [id number] 10:51:30 Test Item Value Reference Range Interpretation Comments POC-GLUCOSE METER 114 mg/dL 70-110 H : TESTED A T [facility] 6720 (BEAKER) (test code [facility], = 1538) [address]: Noc Analyst/Techni lorna ID = [id number] for BRANDT Rodriguez DOUGLAS POCT-GLUCOSE [id number] 08:00:51 Test Item Value Reference Range Interpretation Comments POC-GLUCOSE METER 108 mg/dL 70-110 : TESTED A T [facility] 6720 (BEAKER) (test code [facility] [employer] [facility] [facility], = 1538) [address]: Noc Analyst/Techni lorna ID = [id number] for BRANDT Rodriguez BASIC METABOLIC [id number] 04:58:14 Test Item Value Reference Range Interpretation [...] not appl icable for dialysis patien ts Noc Analyst ID - PIAYA LPOCT-GLUCOSE [id number] 23:40:04 Test Item Value Reference Range Interpretation Comments POC-GLUCOSE METER 122 mg/dL 70-110 H : TESTED A T [facility] 6720 (BEAKER) (test code = [facility] [facility] [employer], 1538) [address]: Noc Analyst/Techni lorna ID = [id number] for EVON PradoNOLDS, BRAD POCT-GLUCOSE [id number] 16:33:39 Test Item Value Reference Range Interpretation Comments POC-GLUCOSE METER 85 mg/dL 70-110 : TESTED A T [facility] 6720 (BEAKER) (test code = [facility] [employer], 1538) [address]: Noc Analyst/Techni lorna ID = [id number] for BRANDT Rodriguez DOUGLAS BLOOD [id number] 16:00:53 Test Item Value Reference Range Interpretation Comments CULTURE (BEAKER) (test No growth in 5 days code = 1095) BLOOD [id number] 15:00:51 Test Item Value Reference Range Interpretation Comments CULTURE (BEAKER) (test No growth in 5 days code = 1095) POCT-GLUCOSE [id number] 11:40:47 Test Item Value Reference Range Interpretation Comments POC-GLUCOSE METER 235 mg/dL 70-110 H : TESTED A T [facility] 6720 (BEAKER) (test code [facility], = 1538) [address]: Noc Analyst/Techni lorna ID = [id number] for BRANDT Rodriguez DOUGLAS POCT-GLUCOSE [id number] 07:50:40 Test Item Value Reference Range Interpretation Comments POC-GLUCOSE METER 211 mg/dL 70-110 H : TESTED A T [facility] 6720 (BEAKER) (test code [facility], = 1538) [address]: Noc Analyst/Techni lorna ID = [id number] for BRANDT Rodriguez DOUGLAS BASIC METABOLIC [id number] 05:05:15 Test Item Value Reference Range Interpretation [...] not appl icable for dialysis patien ts Noc Analyst ID - ALONZO WPOCT-GLUCOSE [id number] 00:28:41 Test Item Value Reference Range Interpretation Comments POC-GLUCOSE METER 344 mg/dL 70-110 H : TESTED A T [facility] 6720 (BEATRIZ) (test code = [place], 1538) [address]: Noc Analyst/Techni lorna ID = [id number] for Elva Tsang MR, SPINE, CERVICAL, [id number] 21:04:00Unlisted Reason for Exam - Click Yes and Enter Reason Below->YesUnlisted Reason for Exam->questionable C3 marrow lesion, eval for causes [facility] 1970 Sex: [...] procedures is suggested.Reason for exam:->FB chestReason for exam:->HYDROGEN TREATER to r/o FB. Please see CXR 02/16Should this be performed at the bedside?->Yes [facility] 1970 Sex: FFINAL REPORT [...] the right upper quadrant. Signed: Pauly Rodriguez MDRepinessa Verified Date/Time: 02/20/2022 16:24:33 POCT-GLUCOSE [id number] 13:02:48 Test Item Value Reference Range Interpretation Comments POC-GLUCOSE METER 200 mg/dL 70-110 H : TESTED A T [facility] 6720 (BEAKER) (test code [facility], = 1538) [address]: Noc Analyst/Techni lorna ID = [id number] for BRANDT Rodriguez DOUGLAS [id number] 07:26:31 Test Item Value Reference Range Interpretation Comments MAGNESIUM (BEAKER) (test code = 1.9 mg/dL 1.6-2.6 627) Noc Analyst ID - [id number] 07:26:31 Test Item Value Reference Range Interpretation Comments PHOSPHORUS (BEAKER) (test code = 3.1 mg/dL 2.3-4.7 604) Noc Analyst ID - BSCOMPREHENSIVE METABOLIC [id number] 07:26:30 Test Item Value Reference Range Interpretation [...] not as accur ate as Creatinine Adriana jc in predicting glom erular filtration rate . Estimated GFR is not appl icable for dialysis patien ts Noc Analyst ID - BSCBC W/PLT COUNT & AUTO [id number] 06:55:28 Test Item Value Reference Range Interpretation [...] PERCENT (BEAKER) (test code = 2801) POCT-GLUCOSE [id number] 18:22:38 Test Item Value Reference Range Interpretation Comments POC-GLUCOSE METER 159 mg/dL 70-110 H : TESTED A T [facility] 6720 (BEAKER) (test code = [facility]ET[facility] [employer], 1538) [address]: Noc Analyst/Techni lorna ID = [id number] for ALLEN WU POCT-GLUCOSE [id number] 16:27:46 Test Item Value Reference Range Interpretation Comments POC-GLUCOSE METER 165 mg/dL 70-110 H : TESTED A T [facility] 6720 (BEAKER) (test code [facility], = 1538) [address]: Noc Analyst/Techni lorna ID = [id number] for Dianna sigmo (contract), Cori nubia VITAMIN D, [id number] 14:54:47 Test Item Value Reference Range Interpretation Comments VITAMIN D 25-OH (AKER) (test code 8.3 ng/mL 6.6-49.9 = 2764) Effective 03/06/2017: Reference Range ChangeNew: 6.6-49.9 ng/mL Previous: 13.0- 47.8 ng/mLRecommendedVitamin D Target Range: 30.0-40.0 ng/mLOperator ID - CONNIE DPOCT-GLUCOSE [id number] 12:56:46 Test Item Value Reference Range Interpretation Comments POC-GLUCOSE METER 199 mg/dL 70-110 H : TESTED A T [facility] 6720 (AKER) (test code [facility], = 1538) [address]: Noc Analyst/Techni lorna ID = [id number] for Dianna sigmo (contract), Cori nubia POCT-GLUCOSE [id number] 08:25:06 Test Item Value Reference Range Interpretation Comments POC-GLUCOSE METER 109 mg/dL 70-110 : TESTED A T [facility] 6720 (BEAKER) (test code [facility], = 1538) [address]: Noc Analyst/Techni lorna ID = [id number] for Dianna sigan (contract), Cori nubia PTH, [id number] 03:05:59 Test Item Value Reference Range Interpretation Comments PARATHYROID HORMONE INTACT 176.0 pg/mL 8.5-72.5 H (BEAKER) (test code = 577) Noc Analyst ID - LENY [id number] 03:01:19 Test Item Value Reference Range Interpretation Comments MAGNESIUM (BEAKER) (test code = 2.0 mg/dL 1.6-2.6 627) Noc Analyst ID - LENY [id number] 03:01:19 Test Item Value Reference Range Interpretation Comments PHOSPHORUS (BEAKER) (test code = 3.3 mg/dL 2.3-4.7 604) Noc Analyst ID - LENY LCOMPREHENSIVE METABOLIC [id number] 03:01:18 Test Item Value Reference Range Interpretation [...] not appl icable for dialysis patien ts Noc Analyst ID - PIAYA LCBC W/PLT COUNT & AUTO [id number] 02:49:55 Test Item Value Reference Range Interpretation [...] PERCENT (BEAKER) (test code = 2801) POCT-GLUCOSE [id number] 22:13:25 Test Item Value Reference Range Interpretation Comments POC-GLUCOSE METER 126 mg/dL 70-110 H : TESTED A T [facility] 6720 (BEAKER) (test code = [facility], 1538) [address]: Noc Analyst/Techni lorna ID = [id number] for Nm eribe, Glory POCT-GLUCOSE [id number] 17:43:00 Test Item Value Reference Range Interpretation Comments POC-GLUCOSE METER 182 mg/dL 70-110 H : TESTED A T [facility] 6720 (BEAKER) (test code = [facility], 1538) [address]: Noc Analyst/Techni lorna ID = [id number] for Ok oroafor, [place] POCT-GLUCOSE [id number] 13:13:29 Test Item Value Reference Range Interpretation Comments POC-GLUCOSE METER 129 mg/dL 70-110 H : TESTED A T [facility] 6720 (BEAKER) (test code = [facility], 1538) [address]: Noc Analyst/Techni lorna ID = [id number] for Ok oroafor, [place] 2D Echo W/Doppler(CW/PW/Color)2022-02-18 12:43:42Ejection FractionSLEH ECHO [facility]Doppler(CW/PW/Color)2022-02-18 12:43:42Ejection FractionSLEH ECHO [facility]ARTLAB [facility] W/Doppler(CW/PW/Color) 2022-02-18 12:43:42Ejection FractionSLEH ECHO HEARTLAB [facility] W/Doppler(CW/PW/Color)2022-02-18 12:43:42Ejection FractionSLEH ECHO HEARTLAB [facility] W/Doppler(CW/PW/Color)2022-02-18 12:43:42Ejection FractionSLEH ECHO [facility]ARTLAB [facility] W/Doppler(CW/PW/Color) 2022-02-18 12:43:42[facility] [id number] 12:11:08 Test Item Value Reference Range Interpretation Comments Result (test code = 6463-4) No MRSA isolated [facility] [id number] 12:11:08 Test Item Value Reference Range Interpretation Comments Result (test code = 6463-4) No MRSA isolated [facility] [id number] 12:11:08 Test Item Value Reference Range Interpretation Comments Result (test code = 6463-4) No MRSA isolated [facility] [id number] 12:11:08 Test Item Value Reference Range Interpretation Comments Result (test code = 6463-4) No MRSA isolated [facility] [id number] 12:11:08 Test Item Value Reference Range Interpretation Comments Result (test code = 6463-4) No MRSA isolated [facility] [id number] 12:11:08 Test Item Value Reference Range Interpretation Comments Result (test code = 6463-4) No MRSA isolated [facility] [id number] 12:11:08 Test Item Value Reference Range Interpretation Comments CULTURE (LUISAKER) (test code No MRSA isolated = 1095) POCT-GLUCOSE [id number] 09:36:58 Test Item Value Reference Range Interpretation Comments POC-GLUCOSE METER 148 mg/dL 70-110 H : TESTED A T [facility] 6720 (BEAKER) (test code = PRIETO MICHAUD, 1538) 19505: Noc Analyst/Techni lorna ID = [id number] for Ok oroafor, [place] U/S, RENAL, [id number] 09:06:00Reason for exam:->[facility] : 1970 Sex: FFINAL REPORT Renal ultrasound dated 02/18/2022 Comment: Real-time transabdominal renal ultrasound was performed.Right kidney measures 9.2 x 4.5 x 5.0 cm. Left kidney measures 9.3 x 4.8 4.4 cm. Right renal cortex measures 0.8 cm. Left renal cortex measures 1.2 cm. Echogenicity of both renal parenchyma is increased. No hydronephrosis, solid or cystic mass seen. The urinary bladder is contracted. Doppler ultrasound demonstrates patent main renal artery and vein bilaterally. Impression: Echogenic kidneys suggestive of renal parenchymal disease. Signed: Abdoulaye Brunner MDReport Verified Date/Time: 02/18/2022 09:06:30 Reading Location: [place] [address] [facility] Body Reading Room POCT-GLUCOSE [id number] 05:45:20 Test Item Value Reference Range Interpretation Comments POC-GLUCOSE METER 124 mg/dL 70-110 H : TESTED A T [facility] 6720 (BEAKER) (test code = [facility] [employer], 1538) 14995: Noc Analyst/Techni lorna ID = [id number] for Lisa Aj COMPREHENSIVE METABOLIC [id number] 05:39:23 Test Item Value Reference Range Interpretation [...] not appl icable for dialysis patien ts Noc Analyst ID - LENY [id number] 04:49:24 Test Item Value Reference Range Interpretation Comments MAGNESIUM (BEAKER) (test code = 2.0 mg/dL 1.6-2.6 627) Noc Analyst ID - LENY [id number] 04:49:24 Test Item Value Reference Range Interpretation Comments PHOSPHORUS (BEAKER) (test code = 3.1 mg/dL 2.3-4.7 604) Noc Analyst ID - LENY LCBC W/PLT COUNT & AUTO [id number] 04:26:28 Test Item Value Reference Range Interpretation [...] PERCENT (BEAKER) (test code = 2801) POCT-GLUCOSE [id number] 23:04:45 Test Item Value Reference Range Interpretation Comments POC-GLUCOSE METER 165 mg/dL 70-110 H : TESTED A T [facility] 6720 (BEATRIZ) (test code = PRIETO Cadena [employer], 1538) 80775: Noc Analyst/Techni lorna ID = [id number] for Christopher Wolff T4, [id number] 18:45:38 Test Item Value Reference Range Interpretation Comments FREE T4 (BEATRIZ) (test code = 655) 1.07 ng/dL 0.70-1.48 Noc Analyst ID - LINDEN MPOCT-GLUCOSE [id number] 18:38:50 Test Item Value Reference Range Interpretation Comments POC-GLUCOSE METER 177 mg/dL 70-110 H : [facility] (test code = [facility] Surinder [employer], 1538) 23851: Noc Analyst/Techni lorna ID = [id number] for Rey diaz, [place] MR, BRAIN, WITHOUT [id number] 18:25:00Hypertensive urgency, r/o PRES Also febrile, r/o meningitis/encephalitis Unlisted Reason for Exam - Click Yes and Enter Reason Below->No Does the patient have an implanted electronic device?->[facility] : 1970 Sex: FFINAL REPORT MR, BRAIN, WITHOUT CONTRAST INDICATION: Meningitis/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 Signed: Elizabeth Reyes MDReport Verified Date/Time: 02/17/2022 18:25:45 TSH/FREE T4 IF [id number] 18:06:03 Test Item Value Reference Range Interpretation Comments THYROID STIMULATING HORMONE 0.234 uIU/mL 0.350-4.940 L (BrightleafAKER) (test code = 772) Noc Analyst ID - LINDEN MPOCT-GLUCOSE [id number] 16:40:45 Test Item Value Reference Range Interpretation Comments POC-GLUCOSE METER 160 mg/dL 70-110 H : TESTED A T [facility] 6720 ([email or web address]) (test code [facility], = 1538) 68341: Noc Analyst/Techni lorna ID = [id number] for Awur uomje (contract), Nne ka POCT-GLUCOSE [id number] 15:26:11 Test Item Value Reference Range Interpretation Comments POC-GLUCOSE METER 76 mg/dL 70-110 : TESTED A T [facility] 6720 (BEAKER) (test code = [facility], 1538) 69152: Noc Analyst/Techni lorna ID = [id number] for Peng ano, Connor POCT-GLUCOSE [id number] 14:21:45 Test Item Value Reference Range Interpretation Comments POC-GLUCOSE METER 108 mg/dL 70-110 : TESTED A T [facility] 6720 (BEAKER) (test code [facility], = 1538) 85029: Noc Analyst/Techni lorna ID = [id number] for Awur uomje (contract), Nne ka POCT-GLUCOSE [id number] 13:29:26 Test Item Value Reference Range Interpretation Comments POC-GLUCOSE METER 73 mg/dL 70-110 : TESTED A T [facility] 6720 (BEAKER) (test code = PRIETO [place], 1538) 35147: Noc Analyst/Techni lorna ID = [id number] for Tori reyes (contract), Nne ka BASIC METABOLIC [id number] 13:27:42 Test Item Value Reference Range Interpretation [...] not appl icable for dialysis patien ts Noc Analyst ID - LINDEN [id number] 12:16:33 Test Item Value Reference Range Interpretation Comments MAGNESIUM (BEAKER) (test code = 1.8 mg/dL 1.6-2.6 627) Noc Analyst ID - LINDEN [id number] 12:16:33 Test Item Value Reference Range Interpretation Comments PHOSPHORUS (BEAKER) (test code = 2.2 mg/dL 2.3-4.7 L 604) Noc Analyst ID - LINDEN MPOCT-GLUCOSE [id number] 11:47:53 Test Item Value Reference Range Interpretation Comments POC-GLUCOSE METER 108 mg/dL 70-110 : TESTED A T [facility] 6720 (BEAKER) (test code [facility], = 1538) 85824: Noc Analyst/Techni lorna ID = [id number] for Tori reyes (contract), Dinorah harrell HEMOGLOBIN [id number] 10:38:53 Test Item Value Reference Range Interpretation Comments HEMOGLOBIN A1C 10.9 % See_Comment H [Automated m essage] ELECTROPHORESIS ([facility]) The system which (test code = 3811) generated this result transmitted ref erence range: <=5.6%. The reference range was not used to int erpret this result as normal/abnormal . "The A1c is measured using a NGSP-certified method. HbA1c value equal to or greater than 6.5% as thediagnosis cutoff for diabetes. An HbA1c value of 5.7- 6.4% indicates increased risk for diabetes (prediabetes)."Noc Analyst ID - ADMPOCT- GLUCOSE [id number] 10:16:09 Test Item Value Reference Range Interpretation Comments POC-GLUCOSE METER 160 mg/dL 70-110 H : TESTED A T [facility] 6720 (BEAKER) (test code [facility], = 1538) 85029: Noc Analyst/Techni lorna ID = [id number] for Tori reyes (contract), Dinorah harrell BASIC METABOLIC [id number] 10:02:11 Test Item Value Reference Range Interpretation [...] not appl icable for dialysis patien ts Noc Analyst ID - LINDEN MPOCT-GLUCOSE [id number] 09:12:51 Test Item Value Reference Range Interpretation Comments POC-GLUCOSE METER 203 mg/dL 70-110 H : TESTED A T [facility] 6720 (BEAKER) (test code = [facility], 1538) 09729: Noc Analyst/Techni lorna ID = [id number] for Ok oroafor, Letso POCT-GLUCOSE [id number] 08:24:37 Test Item Value Reference Range Interpretation Comments POC-GLUCOSE METER 185 mg/dL 70-110 H : TESTED A T [facility] 6720 (BEAKER) (test code = [facility], 1538) 75889: Noc Analyst/Techni lorna ID = [id number] for Ok oroafor, [place]so BASIC METABOLIC [id number] 06:50:10 Test Item Value Reference Range Interpretation [...] not appl icable for dialysis patien ts Noc Analyst ID - LINDEN MPOCT-GLUCOSE [id number] 05:33:55 Test Item Value Reference Range Interpretation Comments POC-GLUCOSE METER 166 mg/dL 70-110 H : TESTED A T [facility] 6720 (BEAKER) (test code [facility], = 1538) 75160: Noc Analyst/Techni lorna ID = [id number] for SUGU , SHEENAMOL CBC W/PLT COUNT & AUTO [id number] 04:40:04 Test Item Value Reference Range Interpretation [...] (BEAKER) (test code = 2801) COMPREHENSIVE METABOLIC [id number] 04:25:06 Test Item Value Reference Range Interpretation [...] not appl icable for dialysis patien ts Noc Analyst ID - LINDEN [id number] 04:18:46 Test Item Value Reference Range Interpretation Comments PHOSPHORUS (BEAKER) (test code = 1.8 mg/dL 2.3-4.7 L 604) Noc Analyst ID - LINDEN [id number] 04:18:45 Test Item Value Reference Range Interpretation Comments MAGNESIUM (BEAKER) (test code = 1.3 mg/dL 1.6-2.6 L 627) Noc Analyst ID - LINDEN MPOCT-GLUCOSE [id number] 03:06:33 Test Item Value Reference Range Interpretation Comments POC-GLUCOSE METER 187 mg/dL 70-110 H : TESTED A T [facility] 6720 (BEAKER) (test code = PRIETO Surinder [place], 1538) 84358: Noc Analyst/Techni lorna ID = [id number] for Al i, Annemarie BASIC METABOLIC [id number] 02:20:38 Test Item Value Reference Range Interpretation [...] not appl icable for dialysis patien ts Noc Analyst ID - LINDEN MPOCT-GLUCOSE [id number] 01:41:42 Test Item Value Reference Range Interpretation Comments POC-GLUCOSE METER 191 mg/dL 70-110 H : TESTED A T [facility] 6720 (BEAKER) (test code [facility] [employer] [facility] = 1538) 38774: Noc Analyst/Techni lorna ID = [id number] for SUGU , SHEENAMOL POCT-GLUCOSE [id number] 00:11:09 Test Item Value Reference Range Interpretation Comments POC-GLUCOSE METER 147 mg/dL 70-110 H : TESTED A T [facility] 6720 (BEAKER) (test code = PRIETO Cadena [employer], 1538) 87271: Noc Analyst/Techni lorna ID = [id number] for Al i, Annemarie RAD, ABDOMEN/KUB, 1 VIEW [id number] 22:52:00Reason for exam:->NGT placementShould this be performed at the bedside?->Yes [facility] : 1970 Sex: FFINAL REPORT Supine abdomen 02/16/2022 HISTORY: NG tube placement. IMPRESSION: NG tube in place with the tip projecting over the distal stomach or proximal duodenum. There is a linear radiodensity projecting over the lower esophagus most likely external to the patient. Signed: Elva Issaort Verified Date/Time: 02/16/2022 22:52:54 Electronically signed by: ELVA ISSA MD on02/16/2022 10:52 PMPOCT-GLUCOSE [id number] 22:29:37 Test Item Value Reference Range Interpretation Comments POC-GLUCOSE METER 144 mg/dL 70-110 H : TESTED A T [facility] 6720 (BEAKER) (test code = PRIETO [place], 1538) 27604: Noc Analyst/Techni lorna ID = [id number] for Al i, Annemarie RAD, CHEST, 1 VIEW, NON [id number] 22:12:00Reason for exam:->eval lung fieldsShould this be performed at the bedside?->Yes [facility] : 1970 Sex: [...] evidenceof consolidation, effusion or pneumothorax. Signed: Elva Issa Verified Date/Time: 02/16/2022 22:12:53 Blood gas, [id number] 21:52:37 Test Item Value Reference Range Interpretation Comments pH, Arterial (test code 7.37 7.35-7.45 = 2744-1) pCO2, Arterial (test 53 See_Comment H [Autom ated message] code = 2019-8) The system ViroXis generated this result transmit amina reference range : 35 - 45 mm Hg. The reference range was not used to interpret this result as normal/abnormal . pO2, Arterial (test 120 See_Comment H [Automa amina message] code = 2703-7) The system [employer] generated this result transmit amina reference range [...] 32 Lab Interpretation Abnormal (test code = 40863-4) [facility] [id number] 21:52:37 Test Item Value Reference Range Interpretation Comments pH, Arterial (test code 7.37 7.35-7.45 = 2744-1) pCO2, Arterial (test 53 See_Comment H [Autom ated message] code = 2019-) The system ZetrOZ generated this result transmit amina reference range : 35 - 45 mm Hg. The reference range was not used to interpret this result as normal/abnormal . pO2, Arterial (test 120 See_Comment H [Automa amina message] code = 2703-7) The system ZetrOZ generated this result transmit amina reference range [...] 32 Lab Interpretation Abnormal (test code = 13714-8) [facility], [id number] 21:52:37 Test Item Value Reference Range Interpretation Comments pH, Arterial (test code 7.37 7.35-7.45 = 2744-1) pCO2, Arterial (test 53 See_Comment H [Autom ated message] code = 2019) The system ZetrOZ generated this result transmit amina reference range : 35 - 45 mm Hg. The reference range was not used to interpret this result as normal/abnormal . pO2, Arterial (test 120 See_Comment H [Automa amina message] code = 2703-7) The system ZetrOZ generated this result transmit amina reference range [...] 32 Lab Interpretation Abnormal (test code = 61076-4) [facility], [id number] 21:52:37 Test Item Value Reference Range Interpretation Comments pH, Arterial (test code 7.37 7.35-7.45 = 2744-1) pCO2, Arterial (test 53 See_Comment H [Autom ated message] code = 2019-8) The system ZetrOZ generated this result transmit amina reference range : 35 - 45 mm Hg. The reference range was not used to interpret this result as normal/abnormal . pO2, Arterial (test 120 See_Comment H [Automa amina message] code = 2703-7) The system ZetrOZ generated this result transmit amina reference range [...] 32 Lab Interpretation Abnormal (test code = 40207-2) [facility] gas, [id number] 21:52:37 Test Item Value Reference Range Interpretation Comments pH, Arterial (test code 7.37 7.35-7.45 = 2744-1) pCO2, Arterial (test 53 See_Comment H [Autom ated message] code = 2019-) The system ZetrOZ generated this result transmit amina reference range : 35 - 45 mm Hg. The reference range was not used to interpret this result as normal/abnormal . pO2, Arterial (test 120 See_Comment H [Automa amina message] code = 2703-7) The system ZetrOZ generated this result transmit amina reference range [...] 32.0 Lab Interpretation Abnormal (test code = 19488-3) [facility], [id number] 21:52:37 Test Item Value Reference Range Interpretation Comments pH, Arterial (test code 7.37 7.35-7.45 = 2744-1) pCO2, Arterial (test 53 See_Comment H [Autom ated message] code = 2019-8) The system ZetrOZ generated this result transmit amina reference range : 35 - 45 mm Hg. The reference range was not used to interpret this result as normal/abnormal . pO2, Arterial (test 120 See_Comment H [Automa amina message] code = 2703-7) The system ZetrOZ generated this result transmit amina reference range [...] 32.0 Lab Interpretation Abnormal (test code = 32071-6) [facility] GAS, [id number] 21:52:37 Test Item Value Reference Range Interpretation [...] (BEAKER) (test code = 1819) 32.0 KETONE, [id number] 21:38:46 Test Item Value Reference Range Interpretation Comments KETONES, BLOOD (BEAKER) (test code 0.9 mmol/L <0.4 H = 1103) POCT-GLUCOSE [id number] 21:19:53 Test Item Value Reference Range Interpretation Comments POC-GLUCOSE METER 173 mg/dL 70-110 H : TESTED A T [facility] 6720 (BEAKER) (test code = PR[place]ET[place], 1538) 22109: Noc Analyst/Techni lorna ID = [id number] for Annemarie Matias i SARS-CoV2/RT-PCR (Symptomatic ONLY)2022-02-16 21:03:01 Test Item Value Reference Range Interpretation Comments SARS-COV2/RT-PCR Negative Negative (test code = 07453-6) SARS-COV-2 PERFORMING [facility] (test code = 39264-1) JYOTI (test code = JYOTI) Endogenous inhibition [...] of the Act. Fact Sheet for Healthcare Providers:https://www.Abcodia ideOlocity.com/sites/default/f colt/product/documents/F act_Sheet_HC_Providers_L vnd_JDHJ-TnP-2.pdf Fact Sheet for Healthcare Patients:https://www.Likeastore del.com/sites/default/fi les/product/documents/Fa ct_Sheet_Patients_Lyra_S ARS-CoV-2.pdf Performing Laboratory:[address]/RT-PCR (Symptomatic ONLY)2022-02-16 21:03:01 Test Item Value Reference Range Interpretation Comments SARS-COV2/RT-PCR Negative Negative (test code = 47342-5) SARS-COV-2 PERFORMING [facility] (test code = 15355-7) JYOTI (test code = JYOTI) Endogenous inhibition [...] of the Act. Fact Sheet for Healthcare Providers:https://www.Abcodia idel.[employer]/sites/default/f colt/product/documents/F act_Sheet_HC_Providers_L dnw_HLMN-TkM-0.pdf Fact Sheet for Healthcare Patients:https://www.Likeastore del.[employer]/sites/default/fi les/product/documents/Fa ct_Sheet_Patients_Lyra_S ARS-CoV-2.pdf Performing Laboratory:[address]-CoV2/RT-PCR (Symptomatic ONLY)2022-02-16 21:03:01 Test Item Value Reference Range Interpretation Comments SARS-COV2/RT-PCR Negative Negative (test code = 33493-9) SARS-COV-2 PERFORMING [facility] (test code = 83425-0) JYOTI (test code = JYOTI) Endogenous inhibition [...] of the Act. Fact Sheet for Healthcare Providers:https://www.ZigaVite/sites/default/f colt/product/documents/F act_Sheet_HC_Providers_L zba_RBBK-LyR-4.pdf Fact Sheet for Healthcare Patients:https://www.[employer]/sites/default/fi les/product/documents/Fa ct_Sheet_Patients_Lyra_S ARS-CoV-2.pdf Performing Laboratory:[facility] [place] [address] [facility] (Symptomatic ONLY)2022-02-16 21:03:01 Test Item Value Reference Range Interpretation Comments SARS-COV2/RT-PCR Negative Negative (test code = 86161-1) SARS-COV-2 PERFORMING [facility] (test code = 46144-8) JYOTI (test code = JYOTI) Endogenous inhibition [...] of the Act. Fact Sheet for Healthcare Providers:https://www.[employer]/sites/default/f colt/product/documents/F act_Sheet_HC_Providers_L cir_CKIF-WzN-1.pdf Fact Sheet for Healthcare Patients:https://www.TSO3/sites/default/fi les/product/documents/Fa ct_Sheet_Patients_Lyra_S ARS-CoV-2.pdf Performing Laboratory:[address] [address] [facility] (Symptomatic ONLY)2022-02-16 21:03:01 Test Item Value Reference Range Interpretation Comments SARS-COV2/RT-PCR Negative Negative (test code = 85639-4) SARS-COV-2 PERFORMING [facility] (test code = 60780-1) JYOTI (test code = JYOTI) Endogenous inhibition [...] of the Act. Fact Sheet for Healthcare Providers:https://www.[employer]/sites/default/f colt/product/documents/F act_Sheet_HC_Providers_L kjs_ADUD-NfN-9.pdf Fact Sheet for Healthcare Patients:https://www.TSO3/sites/default/fi les/product/documents/Fa ct_Sheet_Patients_Lyra_S ARS-CoV-2.pdf Performing Laboratory:[facility] [place] [address] [facility]-PCR (Symptomatic ONLY)2022-02-16 21:03:01 Test Item Value Reference Range Interpretation Comments SARS-COV2/RT-PCR Negative Negative (test code = 77179-7) SARS-COV-2 PERFORMING [facility] (test code = 72346-3) JYOTI (test code = JYOTI) Endogenous inhibition [...] of the Act. Fact Sheet for Healthcare Providers:https://www.qu idel.com/sites/default/f colt/product/documents/F act_Sheet_HC_Providers_L sbi_ERKX-WrK-6.pdf Fact Sheet for Healthcare Patients:https://www.TSO3/sites/default/fi les/product/documents/Fa ct_Sheet_Patients_Lyra_S ARS-CoV-2.pdf Performing Laboratory:[place] [address]ARS-COV2/RT-PCR ([facility])2022-02-16 21:03:01 Test Item Value Reference Range Interpretation Comments SARS-COV2/RT-PCR (test code = Negative Negative 5805948) SARS-COV-2 PERFORMING LAB (test [facility] code = 1803209) Endogenous inhibition of PCR was detected in [...] of the Act.Fact Sheet for Healthcare Providers:https:// www.[employer]/sites/default/files/product/documents/Fact_Sheet_HC_Providers_Lyr y_ZEVR-IhD-0.pdfFactSheet for Healthcare Patients:https://www.Ranku/sites/default/files/product/documents/Fact_Sheet _Emwpzvek_Hyuu_UJHW-QvE-0.pdfPerforming Laboratory:[place] [address], [place] [address]ZTXJG METABOLIC [id number] 20:51:36 Test Item Value Reference Range Interpretation [...] not appl icable for dialysis patien ts Noc Analyst ID - BSPOCT-GLUCOSE [id number] 20:33:13 Test Item Value Reference Range Interpretation Comments POC-GLUCOSE METER 127 mg/dL 70-110 H : TESTED A T [facility] 6720 (BEAKER) (test code = [facility], 1538) 71045: Noc Analyst/Techni lorna ID = [id number] for Al i, Annemarie POCT-GLUCOSE [id number] 18:17:32 Test Item Value Reference Range Interpretation Comments POC-GLUCOSE METER 210 mg/dL 70-110 H : TESTED A T [facility] 6720 (BEAKER) (test code = [facility], 1538) 98763: Noc Analyst/Techni lorna ID = [id number] for Nathalia Schroeder POCT-GLUCOSE [id number] 17:26:57 Test Item Value Reference Range Interpretation Comments POC-GLUCOSE METER 247 mg/dL 70-110 H : TESTED A T [facility] 6720 (BEAKER) (test code [facility], = 1538) 63880: Noc Analyst/Techni lorna ID = [id number] for Nella Hendricks POCT-GLUCOSE [id number] 16:13:16 Test Item Value Reference Range Interpretation Comments POC-GLUCOSE METER 280 mg/dL 70-110 H : TESTED A T [facility] 6720 (BEAKER) (test code [facility], = 1538) 67716: Noc Analyst/Techni lorna ID = [id number] for Rebecca rollyNella alexis Urinalysis w/Microscopic + Reflex to [id number] 15:26:49 Test Item Value Reference Range Interpretation Comments Color, UA (test code Light Yellow = 5778-6) Clarity, UA (test Clear code = 5767-9) Specific [place], UA 1.020 1.001-1.035 (test code = 5811-5) pH, UA (test code = 6.5 5.0-8.0 5803-2) Protein, UA (test 600 mg/dL Negative A code = 26211-5) Glucose, UA (test >1000 mg/dL Negative A code = 365) Ketones, UA (test Trace Negative A code = 2514-8) Bilirubin, UA (test Negative Negative code = 02858-1) Blood, UA (test code Small Negative A = 61880-1) Nitrite, UA (test Negative Negative code = 5802-4) Leukocytes, UA (test Negative Negative code = 5799-2) Urobilinogen, UA 0.2 mg/dL 0.2-1.0 (test code = 71278-0) RBC, UA (test code = 3 See_Comment [Autom ated 70753-1) message] The system which generated this result [...] . Bacteria, UA (test Rare code = 58213-6) Mucus (test code = Rare 8247-9) Crystals, Urine (test None Seen code = 80818-1) Specimen Source (test code = 2795) JYOTI (test code = JYOTI) Noc Analyst ID - [auto]Noc Analyst ID - tech Lab Interpretation Abnormal (test code = 04990-7) [facility] + Reflex to Culture 2022-02-16 15:26:49 Test Item Value Reference Range Interpretation Comments Color, UA (test code Light Yellow = 5778-6) Clarity, UA (test Clear code = 5767-9) Specific [place], UA 1.020 1.001-1.035 (test code = 5811-5) pH, UA (test code = 6.5 5.0-8.0 5803-2) Protein, UA (test 600 mg/dL Negative A code = 19824-5) Glucose, UA (test >1000 mg/dL Negative A code = 365) Ketones, UA (test Trace Negative A code = 2514-8) Bilirubin, UA (test Negative Negative code = 46983-9) Blood, UA (test code Small Negative A = 16395-6) Nitrite, UA (test Negative Negative code = 5802-4) Leukocytes, UA (test Negative Negative code = 5799-2) Urobilinogen, UA 0.2 mg/dL 0.2-1.0 (test code = 44595-9) RBC, UA (test code = 3 See_Comment [Autom ated 13550-1) message] The system which generated this result [...] . Bacteria, UA (test Rare code = 86752-4) Mucus (test code = Rare 8247-9) Crystals, Urine (test None Seen code = 93875-9) Specimen Source (test code = 2795) JYOTI (test code = JYOTI) Noc Analyst ID - [auto]Noc Analyst ID - tech Lab Interpretation Abnormal (test code = 26545-9) [facility] Center[facility]/Microscopic + Reflex to Culture 2022-02-16 15:26:49 Test Item Value Reference Range Interpretation Comments Color, UA (test code Light Yellow = 5778-6) Clarity, UA (test Clear code = 5767-9) Specific [place], UA 1.020 1.001-1.035 (test code = 5811-5) pH, UA (test code = 6.5 5.0-8.0 5803-2) Protein, UA (test 600 mg/dL Negative A code = 26808-0) Glucose, UA (test >1000 mg/dL Negative A code = 365) Ketones, UA (test Trace Negative A code = 2514-8) Bilirubin, UA (test Negative Negative code = 67771-7) Blood, UA (test code Small Negative A = 13357-9) Nitrite, UA (test Negative Negative code = 5802-4) Leukocytes, UA (test Negative Negative code = 5799-2) Urobilinogen, UA 0.2 mg/dL 0.2-1.0 (test code = 44199-1) RBC, UA (test code = 3 See_Comment [Autom ated 24322-3) message] The system which generated this result [...] . Bacteria, UA (test Rare code = 26583-9) Mucus (test code = Rare 8247-9) Crystals, Urine (test None Seen code = 54919-3) Specimen Source (test code = 2795) JYOTI (test code = JYOTI) Noc Analyst ID - [auto]Noc Analyst ID - tech Lab Interpretation Abnormal (test code = 83460-9) [facility] 2022-02-16 15:26:49 Test Item Value Reference Range Interpretation Comments Color, UA (test code Light Yellow = 5778-6) Clarity, UA (test Clear code = 5767-9) Specific [place], UA 1.020 1.001-1.035 (test code = 5811-5) pH, UA (test code = 6.5 5.0-8.0 5803-2) Protein, UA (test 600 mg/dL Negative A code = 41981-9) Glucose, UA (test >1000 mg/dL Negative A code = 365) Ketones, UA (test Trace Negative A code = 2514-8) Bilirubin, UA (test Negative Negative code = 28170-4) Blood, UA (test code Small Negative A = 30403-3) Nitrite, UA (test Negative Negative code = 5802-4) Leukocytes, UA (test Negative Negative code = 5799-2) Urobilinogen, UA 0.2 mg/dL 0.2-1.0 (test code = 04530-9) RBC, UA (test code = 3 See_Comment [Autom ated 61391-5) message] The system which generated this result [...] . Bacteria, UA (test Rare code = 35779-3) Mucus (test code = Rare 8247-9) Crystals, Urine (test None Seen code = 38623-2) Specimen Source (test code = 2795) JYOTI (test code = JYOTI) Noc Analyst ID - [auto]Noc Analyst ID - tech Lab Interpretation Abnormal (test code = 61067-3) [facility] Culture 2022-02-16 15:26:49 Test Item Value Reference Range Interpretation Comments Color, UA (test code Light Yellow = 5778-6) Clarity, UA (test Clear code = 5767-9) Specific [place], UA 1.020 1.001-1.035 (test code = 5811-5) pH, UA (test code = 6.5 5.0-8.0 5803-2) Protein, UA (test 600 mg/dL Negative A code = 34294-1) Glucose, UA (test >1000 mg/dL Negative A code = 365) Ketones, UA (test Trace Negative A code = 2514-8) Bilirubin, UA (test Negative Negative code = 14706-4) Blood, UA (test code Small Negative A = 65496-9) Nitrite, UA (test Negative Negative code = 5802-4) Leukocytes, UA (test Negative Negative code = 5799-2) Urobilinogen, UA 0.2 mg/dL 0.2-1.0 (test code = 67015-1) RBC, UA (test code = 3 See_Comment [Autom ated 03180-2) message] The system which generated this result [...] . Bacteria, UA (test Rare code = 88261-3) Mucus (test code = Rare 8247-9) Crystals, Urine (test None Seen code = 62937-0) Specimen Source (test code = 2795) JYOTI (test code = JYOTI) Noc Analyst ID - [auto]Noc Analyst ID - tech Lab Interpretation Abnormal (test code = 45353-2) [facility] Reflex [facility] Culture 2022-02-16 15:26:49 Test Item Value Reference Range Interpretation Comments Color, UA (test code Light Yellow = 5778-6) Clarity, UA (test Clear code = 5767-9) Specific [place], UA 1.020 1.001-1.035 (test code = 5811-5) pH, UA (test code = 6.5 5.0-8.0 5803-2) Protein, UA (test 600 mg/dL Negative A code = 58014-9) Glucose, UA (test >1000 mg/dL Negative A code = 365) Ketones, UA (test Trace Negative A code = 2514-8) Bilirubin, UA (test Negative Negative code = 74232-3) Blood, UA (test code Small Negative A = 84654-6) Nitrite, UA (test Negative Negative code = 5802-4) Leukocytes, UA (test Negative Negative code = 5799-2) Urobilinogen, UA 0.2 mg/dL 0.2-1.0 (test code = 91488-1) RBC, UA (test code = 3 See_Comment [Autom ated 20978-5) message] The system which generated this result [...] . Bacteria, UA (test Rare code = 92363-9) Mucus (test code = Rare 8247-9) Crystals, Urine (test None Seen code = 76256-2) Specimen Source (test code = 2795) JYOTI (test code = JYOTI) Noc Analyst ID - [auto]Noc Analyst ID - tech Lab Interpretation Abnormal (test code = 02611-7) [facility] URINE [id number] 15:26:49 Test Item Value Reference Range Interpretation [...] = 1521) SOURCE(BEAKER) (test code = 2795) Noc Analyst ID - [auto]Noc Analyst ID - techPOCT-GLUCOSE [id number] 15:14:56 Test Item Value Reference Range Interpretation Comments POC-GLUCOSE METER 271 mg/dL 70-110 H [facility] (test code [facility], = 1538) [address]: Noc Analyst/Techni lorna ID = [id number] for Nella Hendricks POCT-GLUCOSE [id number] 14:27:23 Test Item Value Reference Range Interpretation Comments POC-GLUCOSE METER 285 mg/dL 70-110 H : [facility] ([facility] [employer] [facility], 1538) [address]: Noc Analyst/Techni lorna ID = [id number] for Rey diaz, [place] POCT-GLUCOSE [id number] 13:36:16 Test Item Value Reference Range Interpretation Comments POC-GLUCOSE METER 342 mg/dL 70-110 H : Notified RN/MD: ([facility]) (test code = TESTED AT [facility] 6720 1538) [facility], [address]: Noc Analyst/Techni lorna ID = [id number] for On Denise restrepo BASIC METABOLIC [id number] 12:34:45 Test Item Value Reference Range Interpretation [...] not appl icable for dialysis patien ts Noc Analyst ID - LENY LPOCT-GLUCOSE [id number] 12:20:08 Test Item Value Reference Range Interpretation Comments POC-GLUCOSE METER 427 mg/dL 70-110 HH : Notified RN/MD: (BEATRIZ) (test code = TESTED AT [facility] 0123 5635) [facility], [address]: Noc Analyst/Techni lorna ID = [id number] for On agaDenise HEPATIC FUNCTION [id number] 12:11:01 Test Item Value Reference Range Interpretation [...] (test code = 13 U/L 6-55 347) Noc Analyst ID - LENY LHIGH SENSITIVITY TROPONIN [id number] 12:07:22 Test Item Value Reference Range Interpretation Comments HIGH SENSITIVITY 10 pg/ml See_Comment [Automated message] TROPONIN I (test code = The system which 1768228) generated this result transmitted ref erence range: <=17. Th e reference range was not used to int erpret this result as normal/abnormal . Noc Analyst ID - LENY LThe DUCT MAKER STAT High Sensitivity Troponin-I results should be used in conjunction with other diagnostic information such as ECG, clinical observations and information, and patient symptoms to aid in the diagnosis of GA.LACTIC ACID, [id number] 12:05:20 Test Item Value Reference Range Interpretation Comments LACTATE BLOOD VENOUS (2) (BEAKER) 1.58 mmol/L 0.50-2.20 (test code = 2872) Noc Analyst ID - PIAYA LCBC W/PLT COUNT & AUTO [id number] 11:39:33 Test Item Value Reference Range Interpretation [...] = 2801) RAD, CHEST, 1 VIEW, NON [id number] 11:03:00Reason for exam:->[facility] : 1970 Sex: [...] TERRELL BOYD MD on 1:03 AMPOCT- GLUCOSE [id number] 09:27:22 Test Item Value Reference Range Interpretation Comments POC-GLUCOSE METER 380 mg/dL 70-110 H : TESTED A T [facility] 6720 (BEAKER) (test code [facility], = 1538) [address]: Noc Analyst/Techni lorna ID = [id number] for Nella Hendricks CBC W/AUTO [id number] 00:00:00 Test Item Value Reference Range Interpretation [...] NUCLEATED RBCS (test code = 0.00 K/UL 91062) CBC W/AUTO [id number] 00:00:00 Test Item Value Reference Range Interpretation [...] NUCLEATED RBCS (test code = 0.00 K/UL 09799) MICROALBUMIN/CREATININE, RANDOM AND [id number] 00:00:00 Test Item Value Reference Range Interpretation Comments CREATININE, URINE, CONC. (test 104.8 MG/DL code = 2072) ALBUMIN, URINE, RANDOM (test code 216.2 MG/DL = 71790) CALC ALBUMIN/CREAT, RND (test 2063 MG/G code = 52679) CBC W/AUTO [id number] 00:00:00 Test Item Value Reference Range Interpretation [...] NUCLEATED RBCS (test code = 0.00 K/UL 49036) MICROALBUMIN/CREATININE, RANDOM AND [id number] 00:00:00 Test Item Value Reference Range Interpretation Comments CREATININE, URINE, CONC. (test 104.8 MG/DL code = 2072) ALBUMIN, URINE, RANDOM (test code 216.2 MG/DL = 37887) CALC ALBUMIN/CREAT, RND (test 2063 MG/G code = 92102) HEMOGLOBIN [id number] 00:00:00 Test Item Value Reference Range Interpretation Comments HEMOGLOBIN A1c (test code = 15387) 9.5 % HEMOGLOBIN [id number] 00:00:00 Test Item Value Reference Range Interpretation Comments HEMOGLOBIN A1c (test code = 35991) 9.5 % HEMOGLOBIN [id number] 00:00:00 Test Item Value Reference Range Interpretation Comments HEMOGLOBIN A1c (test code = 27460) 9.5 % LIPID [id number] 00:00:00 Test Item Value Reference Range Interpretation Comments CHOLESTEROL (test code = 2210) 178 MG/DL TRIGLYCERIDES (test code = 2232) 97 MG/DL HDL CHOLESTEROL (test code = 2220) 68 MG/DL CALC LDL CHOL (test code = 2237) 91 MG/DL RISK RATIO LDL/HDL (test code = 1.34 RATIO 2238) LIPID [id number] 00:00:00 Test Item Value Reference Range Interpretation Comments CHOLESTEROL (test code = 2210) 178 MG/DL TRIGLYCERIDES (test code = 2232) 97 MG/DL HDL CHOLESTEROL (test code = 2220) 68 MG/DL CALC LDL CHOL (test code = 2237) 91 MG/DL RISK RATIO LDL/HDL (test code = 1.34 RATIO 2238) COMPREHENSIVE METABOLIC [id number] 00:00:00 Test Item Value Reference Range Interpretation Comments GLUCOSE (test code = 2217) 212 MG/DL BUN (test code = 2208) 33 MG/DL CREATININE (test code = 2214) 1.35 MG/DL eGFR AMER. (test code 53 ML/MIN/1.73 = 17610) eGFR NON- AMER. (test 45 ML/MIN/1.73 code = 20908) CALC BUN/CREAT (test code = 24 RATIO [...] code = 2219) 14 U/L COMPREHENSIVE METABOLIC [id number] 00:00:00 Test Item Value Reference Range Interpretation Comments GLUCOSE (test code = 2217) 212 MG/DL BUN (test code = 2208) 33 MG/DL CREATININE (test code = 2214) 1.35 MG/DL eGFR AMER. (test code 53 ML/MIN/1.73 = 59448) eGFR NON- AMER. (test 45 ML/MIN/1.73 code = 68076) CALC BUN/CREAT (test code = 24 RATIO 2235) SODIUM (test code = 2231) 141 MEQ/L POTASSIUM (test code = 2228) 4.0 MEQ/L CHLORIDE (test code = 2215) 99 MEQ/L CARBON DIOXIDE (test code = 30 MEQ/L 2206) CALCIUM (test code = 2209) 9.6 MG/DL [...] = 2219) 14 U/L LIVER (HEPATIC) FUNCTION [id number] 00:00:00 Test Item Value Reference Range Interpretation [...] = 2219) 14 U/L LIVER (HEPATIC) FUNCTION [id number] 00:00:00 Test Item Value Reference Range Interpretation Comments PROTEIN, TOTAL (test code = 2229) 6.7 G/DL ALBUMIN (test code = 2201) 3.5 G/DL BILIRUBIN, TOTAL (test code = <0.2 MG/DL 2206) BILIRUBIN, DIRECT (test code = <0.2 MG/DL 2021) ALKALINE PHOSPHATASE (test code = 98 U/L 2203) AST (test code = 2218) 13 U/L ALT (test code = 2219) 14 U/L [id number] 00:00:00 Test Item Value Reference Range Interpretation Comments TSH, THIRD GENERATION (test code 0.895 UIU/ML = 2821) [id number] 00:00:00 Test Item Value Reference Range Interpretation Comments TSH, THIRD GENERATION (test code 0.895 UIU/ML = 2821) [id number] 00:00:00 Test Item Value Reference Range Interpretation Comments TSH, THIRD GENERATION (test code 0.895 UIU/ML = 2821)
[2023-03-22] MEDS ORDERED: ALTEPLASE 2 MG/VIAL IV ONE (10:46)
[2023-03-22] MEDS ORDERED: WATER FOR INJ,STERILE 10 ML ONE (10:47)
[2023-03-22 11:26] LABS: Absolute Lymphocytes (CBC) 2.2 K/uL (0.7-4.9); Hematocrit 25.1 % (36.0-45.0); Lymphocytes % 30.1 % (15.3-44.8); MCV 92.4 fL (80-100); MPV 9.6 fL (7.6-11.3); Platelets 164 thou/uL (152-406); RBC Red Blood Cell Count 2.72 M/uL (3.86-4.86)
[2023-03-22 11:28] LABS: Protime INR 1.02
--- NOTE | 2023-03-22 11:31 | RAD REPORT ---
EXAM DESCRIPTION: RAD - Chest Single View - 03/22/2023 10:39 am CLINICAL HISTORY: Cough;Dyspnea Chest pain. COMPARISON: Chest Single View dated 02/25/2023; Chest Single View dated 02/20/2023; Chest Single View dated 02/17/2023; Chest Single View dated 01/28/2023 FINDINGS: Portable technique limits examination quality. The lungs are grossly clear. The heart is normal in size. No displaced fractures.Right-sided dialysis catheter its tip in the SVC. IMPRESSION: No acute intrathoracic process suspected.
[2023-03-22 11:52] LABS: ALT/SGPT 17 U/L (13-56); AST/SGOT 11 U/L (15-37); Albumin 2.9 g/dL (3.4-5.0); Alkaline Phosphatase 84 U/L (45-117); BUN Blood Urea Nitrogen 29 mg/dL (7-18); Bicarbonate 28 mEq/L (21-32); Bilirubin Total 0.2 mg/dL (0.2-1.0); Glomerular Filtration Rate 9 ml/min (=/>90); Glucose Level 174 mg/dL (74-106); Magnesium 2.1 mg/dL (1.6-2.4); NT PRO-BNP 356 pg/mL (<125); Potassium 3.7 mEq/L (3.5-5.1); Protein, Total 6.6 g/dL (6.4-8.2); Sodium Level 140 mEq/L (136-145); Troponin High Sensitivity 8.5 pg/mL (<58.9)
[2023-03-22 11:56] LABS: Bilirubin Direct < 0.1 mg/dL (0-0.2); Bilirubin Indirect, Calculated ND mg/dL (0.2-0.8)
--- NOTE | 2023-03-22 12:28 | ER ---
Nurse's Notes [facility] Name: Bisi Santo Age: 53 yrs Sex: Female : 1970 Arrival Date: 03/22/2023 Time: 09:44 Bed IW8 Private MD: Diagnosis: Other complication of vascular dialysis catheter-cath flow to unblock;Anemia in chronic kidney disease;Anemia, unspecified Presentation: 03/22 10:07 Chief complaint: Sent from [facility] for clogged HD port. Last full HD session was hb Saturday. Coronavirus screen: At this time, the client does not indicate any symptoms associated with coronavirus-19. Ebola Screen: No symptoms or risks identified at this time. Initial Sepsis Screen: Does the patient meet any 2 criteria? No. Patient's initial sepsis screen is negative. Does the patient have a suspected source of infection? No. Patient's initial sepsis screen is negative. Risk Assessment: Do you want to hurt yourself or someone else? Patient reports no desire to harm self or others. Onset of symptoms was March 22, 2023. 10:07 Method Of Arrival: Ambulatory hb 10:07 Acuity: SONIA 3 hb Triage Assessment: 12:42 General: Behavior is. nj1 Historical: - Allergies: 10:10 Codeine; hb 10:10 Demerol; hb 10:10 Morphine; hb 10:10 Sulfa (Sulfonamide Antibiotics); hb - PMHx: 10:10 Diabetes - IDDM; Hypertension; kidney disease (Hypertension); hb - PSHx: 10:10 biopsy kidney; hb - Immunization history:: Adult Immunizations up to date. - Social history:: Smoking status: Patient denies any tobacco usage or history of. Screenin:[address] [facility] ED Fall Risk Assessment (Adult) Score/Fall Risk Level 0 - 2 = Low Risk nj1 Oriented to surroundings, Maintained a safe environment, Hourly rounding (assess needs \T\ fall precautionary measures) done. Abuse screen: Denies threats or abuse. Denies injuries from another. Nutritional screening: No deficits noted. Tuberculosis screening: No symptoms or risk factors identified. Assessment: 10:20 General: Appears in no apparent distress. comfortable, Behavior is calm, cooperative, nj1 appropriate for age. 10:20 Pain: Denies pain. Neuro: Level of Consciousness is awake, alert, obeys commands, nj1 Oriented to person, place, time, situation. Cardiovascular: Patient's skin is warm and dry. Parent/caregiver reports patient has had Unable to dialyzed today, had only 1 hour of dialysis on Saturday because they were having trouble with her catheter. Respiratory: Airway is patent Respiratory effort is even, unlabored. 11:30 Reassessment: Patient appears in no apparent distress at this time. Patient and/or nj1 family updated on plan of care and expected duration. Pain level reassessed. Patient is alert, oriented x 3, equal unlabored respirations, skin warm/dry/pink. Patient denies pain at this time. 12:25 Reassessment: Hemodialysis port flushed and hep locked by charge nurse Malu COLON. nj1 12:40 Reassessment: Patient appears in no apparent distress at this time. Patient and/or nj1 family updated on plan of care and expected duration. Pain level reassessed. Patient is alert, oriented x 3, equal unlabored respirations, skin warm/dry/pink. Vital Signs: 10:07 BP 158 / 86; Pulse 91; Resp 16; Temp 98.1; Pulse Ox 94% on R/A; Pain 0/10; hb 11:52 BP 161 / 80; Pulse 84; Resp 13; Pulse Ox 96% on R/A; nj1 12:40 BP 148 / 91; Pulse 85; Resp 19; Pulse Ox 97% ; nj1 10:07 Pain Scale: Adult hb ED Course: 09:49 Patient arrived in ED. im 10:07 Leslie Lind, ISAIAH is Primary Nurse. nj1 10:10 Triage completed. hb 10:10 Arm band placed on. hb 10:11 Hari De La Garza MD is Attending Physician. charlene 10:20 Patient has correct armband on for positive identification. Bed in low position. Call nj1 light in reach. 10:20 Provided Education on: call light, fall precautions. nj1 10:41 XRAY Chest (1 view) In Process Unspecified. EDMS 10:44 Inserted saline lock: 22 gauge in right antecubital area, using aseptic technique. nj1 Blood collected. 12:27 Shoaib Duong MD is Referral Physician. charlene 12:40 No provider procedures requiring assistance completed. nj1 12:40 IV discontinued, intact, bleeding controlled. nj1 13:03 Primary Nurse role handed off by Leslie Lind, ISAIAH Administered Medications: 11:15 Drug: Cathflo Activase IV Thrombolytics 2 mg IV Thrombolytics once; into each catheter hb lumen, may repeat once Route: IV Thrombolytics; 12:44 Follow up: Response: No adverse reaction nj1 Medication: 12:43 VIS not applicable for this client. nj1 Outcome: 12:27 Discharge ordered by . charlene 12:40 Discharged to home ambulatory, nj1 12:40 Condition: stable 12:40 Discharge instructions given to patient, Instructed on discharge instructions, follow up and referral plans. Hemodialysis today at 2pm Demonstrated understanding of instructions, follow-up care, 12:44 Patient left the ED. nj1 13:21 Patient left the ED. sb4 Signatures: Dispatcher [employer] EDMS Hari De La Garza MD MD cha Baxter, Heather, RN RN Diana Villegas, PA-C PA-C sb4 Leslie Lind RN RN nj1 Alba Reis Corrections: (The following items were deleted from the chart) 12:42 10:20 General: Appears in no apparent distress. comfortable, nj1 nj1
--- NOTE | 2023-03-22 12:28 | EDPHYS ---
Physician Documentation [facility] Name: Bisi Santo Age: 53 yrs Sex: Female : 1970 Arrival Date: 03/22/2023 Time: 09:44 Bed IW8 Private MD: LAMBERTO Physician Hari De La Garza HPI: 03/22 11:05 This 53 yrs old Black Female presents to ER via Ambulatory with complaints of Dialysis charlene Access Problem. 11:05 The patient has a dialysis catheter in the right subclavian area. Type of problem: charlene clotted. Onset: The symptoms/episode began/occurred 3 day(s) ago. Historical: - Allergies: 10:10 Codeine; hb 10:10 Demerol; hb 10:10 Morphine; hb 10:10 Sulfa (Sulfonamide Antibiotics); hb - PMHx: 10:10 Diabetes - IDDM; Hypertension; kidney disease (Hypertension); hb - PSHx: 10:10 biopsy kidney; hb - Immunization history:: Adult Immunizations up to date. - Social history:: Smoking status: Patient denies any tobacco usage or history of. ROS: 11:20 Constitutional: Negative for fever, chills, and weight loss, Eyes: Negative for injury, charlene pain, redness, and discharge, ENT: Negative for injury, pain, and discharge, Neck: Negative for injury, pain, and swelling, Cardiovascular: Negative for chest pain, palpitations, and edema, Respiratory: Negative for shortness of breath, cough, wheezing, and pleuritic chest pain, Abdomen/GI: Negative for abdominal pain, nausea, vomiting, diarrhea, and constipation, Back: Negative for injury and pain, : Negative for injury, bleeding, discharge, and swelling, MS/Extremity: Negative for injury and deformity, Skin: Negative for injury, rash, and discoloration, Neuro: Negative for headache, weakness, numbness, tingling, and seizure, Psych: Negative for depression, anxiety, suicide ideation, homicidal ideation, and hallucinations, Allergy/Immunology: Negative for hives, rash, and allergies, Endocrine: Negative for neck swelling, polydipsia, polyuria, polyphagia, and marked weight changes, 11:20 Hematologic/Lymphatic: Positive for 1 hour of dialysis wed , none today, Exam: 11:20 Constitutional: This is a well developed, well nourished patient who is awake, alert, charlene and in no acute distress. Head/Face: Normocephalic, atraumatic. Eyes: Pupils equal round and reactive to light, extra-ocular motions intact. Lids and lashes normal. Conjunctiva and sclera are non-icteric and not injected. Cornea within normal limits. Periorbital areas with no swelling, redness, or edema. ENT: Nares patent. No nasal discharge, no septal abnormalities noted. Tympanic membranes are normal and external auditory canals are clear. Oropharynx with no redness, swelling, or masses, exudates, or evidence of obstruction, uvula midline. Mucous membranes moist. Neck: Trachea midline, no thyromegaly or masses palpated, and no cervical lymphadenopathy. Supple, full range of motion without nuchal rigidity, or vertebral point tenderness. No Meningismus. Chest/axilla: Normal chest wall appearance and motion. Nontender with no deformity. No lesions are appreciated. Cardiovascular: Regular rate and rhythm with a normal S1 and S2. No gallops, murmurs, or rubs. Normal PMI, no JVD. No pulse deficits. Respiratory: Lungs have equal breath sounds bilaterally, clear to auscultation and percussion. No rales, rhonchi or wheezes noted. No increased work of breathing, no retractions or nasal flaring. Abdomen/GI: Soft, non-tender, with normal bowel sounds. No distension or tympany. No guarding or rebound. No evidence of tenderness throughout. Back: No spinal tenderness. No costovertebral tenderness. Full range of motion. Skin: Warm, dry with normal turgor. Normal color with no rashes, no lesions, and no evidence of cellulitis. MS/ Extremity: Pulses equal, no cyanosis. Neurovascular intact. Full, normal range of motion. Neuro: Awake and alert, GCS 15, oriented to person, place, time, and situation. Cranial nerves II-XII grossly intact. Motor strength 5/5 in all extremities. Sensory grossly intact. Cerebellar exam normal. Normal gait. Psych: Awake, alert, with orientation to person, place and time. Behavior, mood, and affect are within normal limits. 13:09 ECG was reviewed by the Attending Physician. [facility] Vital Signs: 10:07 BP 158 / 86; Pulse 91; Resp 16; Temp 98.1; Pulse Ox 94% on R/A; Pain 0/10; hb 11:52 BP 161 / 80; Pulse 84; Resp 13; Pulse Ox 96% on R/A; nj1 12:40 BP 148 / 91; Pulse 85; Resp 19; Pulse Ox 97% ; nj1 10:07 Pain Scale: Adult hb MDM: 10:12 Patient medically screened. [facility] 13:06 Differential diagnosis: shunt malfunction. Data reviewed: vital signs, nurses notes, [facility] lab test result(s), EKG, radiologic studies, plain films. Consideration of Admission/Observation Escalation of care including admission/observation considered. Management of patient was discussed with the following: Lead Systems Analyst: dr reeves, aware. Counseling: I had a detailed discussion with the patient and/or guardian regarding the historical points, exam findings, and any diagnostic results supporting the discharge/admit diagnosis, lab results, radiology results, the need for outpatient follow up, to dialysis at 2pm today per lala. 03/22 10:22 Order name: Basic Metabolic Panel; Complete Time: 12:25 03/22 10:22 Order name: CBC with Diff; Complete Time: 11:32 03/22 10:22 Order name: LFT's; Complete Time: 12:25 03/22 10:22 Order name: Magnesium; Complete Time: 12:25 03/22 10:22 Order name: NT PRO-BNP; Complete Time: 12:25 03/22 10:22 Order name: PT-INR; Complete Time: 11:32 03/22 10:22 Order name: Troponin HS; Complete Time: 12:25 03/22 10:22 Order name: XRAY Chest (1 view); Complete Time: 11:32 03/22 10:22 Order name: EKG; Complete Time: 10:23 03/22 10:22 Order name: Cardiac monitoring; Complete Time: 10:39 03/22 10:22 Order name: EKG - Nurse/Tech; Complete Time: 11:29 03/22 10:22 Order name: IV Saline Lock; Complete Time: 10:46 03/22 10:22 Order name: Labs collected and sent; Complete Time: 10:46 03/22 10:22 Order name: O2 Per Protocol; Complete Time: 10:46 03/22 10:22 Order name: O2 Sat Monitoring; Complete Time: 10:46 charlene EC:09 Rate is 87 beats/min. Rhythm is regular. QRS [place] is Normal. [place] interval is normal. QRS charlene interval is normal. QT interval is normal. No Q waves. T waves are Normal. No ST changes noted. Clinical impression: NSR w/ Non-specific ST/T Changes and No evidence of ischemia. Interpreted by me. Reviewed by me. Administered Medications: 11:15 Drug: Cathflo Activase IV Thrombolytics 2 mg IV Thrombolytics once; into each catheter hb lumen, may repeat once Route: IV Thrombolytics; 12:44 Follow up: Response: No adverse reaction nj1 Disposition Summary: 03/22/23 12:27 Discharge Ordered Notes: Location: Home charlene Condition: Stable charlene Diagnosis - Other complication of vascular dialysis catheter - cath flow to unblock charlene - Anemia in chronic kidney disease charlene - Anemia, unspecified charlene Followup: charlene - With: Private Physician - When: Tomorrow - Reason: Recheck today's complaints, Continuance of care, Re-evaluation by your physician Followup: charlene - With: Shoaib Duong MD - When: 1 - 2 days - Reason: Recheck today's complaints, Continuance of care, Re-evaluation by your physician Discharge Instructions: - Discharge Summary Sheet charlene - Dialysis Vascular Access Malfunction charlene - Eating Plan for Dialysis, [id number] charlene - Hemodialysis charlene - Hemodialysis, Care After charlene - Eating Plan for Dialysis charlene - Hemodialysis, [id number]-[id number] charlene - Hemodialysis, Care After, [id number] charlene Forms: - Medication Reconciliation Form charlene - Thank You Letter charlene - Antibiotic Education charlene - Prescription Opioid Use charlene - Patient Portal Instructions charlene - Leadership Thank You Letter charlene Signatures: Dispatcher [employer] Hari Diaz MD MD cha Baxter, Heather, RN RN Leslie Lind RN nj1
[2023-03-22] MEDS ORDERED: HEPARIN 500 UNIT/5 ML SYR IV ONE (12:38)
[2023-03-22 13:01] VITALS: TEMP 98.1
[2023-03-22 13:17] VITALS: BP 148/91; O2SAT 97
--- NOTE | 2023-03-22 15:41 | EKG ---
Test Date: 2023-03-22 Test Time: 11:27:25 Campaign Developer: CRISTELA MEASUREMENT RESULTS: Intervals: Rate: 87 TN: 124 QRSD: 78 QT: 372 QTc: 447 [place]: P: 51 TN: 124 QRS: 29 T: -6 INTERPRETIVE STATEMENTS: Normal sinus rhythm Normal ECG Compared to ECG 02/20/2023 14:03:11 Left-axis deviation no longer present Electronically Signed On 03-22-23 15:40:15 CDT by Isaiah Hogan
== END 2023-03-22 13:21 | disposition home or self-care (01) ==
LOC: ER 09:44
DX: T82.49XA Other complication of vascular dialysis catheter, initial encounter (principal); D63.1 Anemia in chronic kidney disease; N18.9 Chronic kidney disease, unspecified; E11.9 Type 2 diabetes mellitus without complications; I10 Essential (primary) hypertension; Z99.2 Dependence on renal dialysis; Z88.5 Allergy status to narcotic agent; Z88.2 Allergy status to sulfonamides
CPT/HCPCS: 92977; 93005; 85025; 80048; 36415; 83735; 85610; 80076; 84484; 83880; 71045; 99291; J2997; J1642

== ENCOUNTER → 2023-06-12 | Emergency (ER) | payer OTHER ==
[~2023-06-12] MED LIST: AMOX/K CLAV 875 MG TAB ONE; ONDANSETRON 4 MG/2 ML VIAL ONE
--- OUTSIDE RECORDS SUMMARY | 2023-06-12 15:41 | XMS REPORT | Clinical Summary ---
Author Name Unknown Organization [facility] [place] Address [address] [place] [address] Care Team Providers Care Kai Whakaruruhau Name Role Phone Cassie Porter MD Unavailable [phone] Social History Tobacco Use Types Packs/Day Years Used Date Smoking Tobacco: Never Assessed Sex and Gender Information Value Date Recorded Sex Assigned at Not on file Gender Identity Not on file Sexual Orientation Not on file Plan of Treatment Not on file Care Teams Kai Whakaruruhau Relationship Specialty Start Date End Date Cassie Porter MD [address] [place] [address] PCP - External Referring 04/29/18
[2023-06-12 16:28] LABS: Absolute Lymphocytes (CBC) 2.7 K/uL (0.7-4.9); Hematocrit 26.8 % (36.0-45.0); Lymphocytes % 36.4 % (15.3-44.8); MCV 87.6 fL (80-100); MPV 8.8 fL (7.6-11.3); Platelets 180 thou/uL (152-406); RBC Red Blood Cell Count 3.06 M/uL (3.86-4.86)
[2023-06-12 16:33] LABS: Protime INR 1.12
[2023-06-12 16:34] LABS: SARS-CoV-2 Antigen Rapid Res Negative (Negative)
[2023-06-12 16:42] LABS: Albumin 3.1 g/dL (3.4-5.0); Bilirubin Total 0.3 mg/dL (0.2-1.0); Potassium 3.5 mEq/L (3.5-5.1); Protein, Total 7.3 g/dL (6.4-8.2)
--- NOTE | 2023-06-12 17:02 | RAD REPORT ---
EXAM DESCRIPTION: CT - Abdomen Pelvis Wo Contrast - 06/12/2023 4:26 pm CLINICAL HISTORY: Abdominal pain. NAUSEA / VOMITING COMPARISON: Stone Protocol dated 02/24/2023; Stone Protocol dated 05/30/2022; Abdomen Pelvis W Contra st dated 06/01/2020 TECHNIQUE: CT imaging of the abdomen and pelvis was performed without contrast. Solid organ, bowel a nd vascular assessment is limited due to lack of IV and oral contrast. All CT scans are performed using dose optimization technique as appropriate and may include automated exposure control or mA/KV adjustment according to patient size. FINDINGS: The lower lung barragan are clear.Cholecystectomy clips. The liver, spleen, pancreas, adrenal glands and kidneys are within normal limits for a limited non-co ntrast examination. No bowel obstruction, free air, free fluid or abscess. Moderate stool throughout the colon. The appen erick is normal. Mild lower lumbar degenerative changes. IMPRESSION: No acute intra-abdominal or pelvic findings. A limited non-contrast examination was performed as detailed.
--- NOTE | 2023-06-12 17:02 | RAD REPORT ---
EXAM DESCRIPTION: RAD - Chest Single View - 06/12/2023 4:57 pm CLINICAL HISTORY: COUGH Chest pain. COMPARISON: <Comparisons> FINDINGS: Portable technique limits examination quality. The lungs are grossly clear. The heart is normal in size. No displaced fractures.Right-sided venous c atheter has tip in the SVC. IMPRESSION: No acute intrathoracic process suspected.
--- NOTE | 2023-06-12 17:08 | ER ---
Nurse's Notes [facility] Name: Bisi Santo Age: 53 yrs Sex: Female : 1970 Arrival Date: 06/12/2023 Time: 15:38 Bed 4 Private MD: Diagnosis: Fever, unspecified;Cough;Other malaise and fatigue Presentation: 06/12 15:44 Chief complaint: EMS states: the patient was at dialysis when after she completed her ap3 session, she started shivering and reported she wasn't feeling well. Patient states she lives with her nephew who has been sick recently. Coronavirus screen: Client presents with at least one sign or symptom that may indicate coronavirus-19. Ebola Screen: No symptoms or risks identified at this time. Initial Sepsis Screen: Does the patient meet any 2 criteria? No. Patient's initial sepsis screen is negative. Does the patient have a suspected source of infection? No. Patient's initial sepsis screen is negative. Risk Assessment: Do you want to hurt yourself or someone else? Patient reports no desire to harm self or others. Onset of symptoms was June 12, 2023. 15:44 Method Of Arrival: EMS: [facility] ap3 15:44 Acuity: SONIA 3 ap3 Triage Assessment: 17:28 General: Appears in no apparent distress. comfortable, Behavior is calm, cooperative. cm10 Pain: Complains of pain in chest and anterior aspect of right upper chest. Historical: - Allergies: 15:42 Codeine; ph 15:42 Demerol; ph 15:42 Morphine; ph 15:42 Sulfa (Sulfonamide Antibiotics); ph - PMHx: 15:42 Diabetes - IDDM; Hypertension; kidney disease (Hypertension); dialysis (biopsy kidney); ph - PSHx: 15:42 biopsy kidney; ph - Immunization history:: Adult Immunizations up to date. - Family history:: not pertinent. - Social history:: Smoking status: unknown. - Hospitalizations: : No recent hospitalization is reported. Screenin:47 Abuse screen: Denies threats or abuse. Nutritional screening: No deficits noted. ap3 Tuberculosis screening: No symptoms or risk factors identified. 17:27 [facility] ED Fall Risk Assessment (Adult) History of falling in the last 3 months, cm10 including since admission No falls in past 3 months (0 pts) Confusion or Disorientation No (0 pts) Intoxicated or Sedated No (0 pts) Impaired Gait No (0 pts) Mobility Assist Device Used No (0 pt) Altered Elimination No (0 pt) Score/Fall Risk Level 0 - 2 = Low Risk Oriented to surroundings, Maintained a safe environment, Hourly rounding (assess needs \T\ fall precautionary measures) done. Assessment: 15:46 General: Appears ill, Behavior is calm. General: Reports chills for feeling ill for ap3 fatigue for. Neuro: Level of Consciousness is alert, obeys commands, Oriented to person, place, time, situation. Cardiovascular: Patient's skin is warm and dry. Respiratory: Airway is patent Respiratory effort is even, unlabored, Respiratory pattern is regular, symmetrical. GI: Reports nausea, vomiting. 15:47 Cardiovascular: Dialysis shunt: in the anterior aspect of right upper chest, with no ap3 edema, no bleeding noted. Vital Signs: 15:44 BP 149 / 67; Pulse 89; Resp 19; Temp 98.8(O); Pulse Ox 100% on R/A; ap3 17:09 Pulse 85; Pulse Ox 100% on R/A; ap3 ED Course: 15:42 Patient arrived in ED. rn 15:42 Dillon Jordan MD is Attending Physician. rn 15:42 Arm band placed on Patient placed in an exam room, on a stretcher. ph 15:46 Triage completed. ap3 15:48 Patient has correct armband on for positive identification. Bed in low position. Call ap3 light in reach. Side rails up X2. nurse monitoring on. Pulse ox on. NIBP on. 15:49 Krissy Larsen, ISAIAH is Primary Nurse. ap3 16:09 Initial lab(s) drawn, by id, sent to lab. First set of blood cultures drawn by id. ap3 Inserted saline lock: 22 gauge in left antecubital area, using aseptic technique. Blood collected. 16:22 SARS RAPID Sent. ap3 16:22 Strep Sent. ap3 16:22 Flu Sent. ap3 16:28 CT Abd/Pelvis - Without Contrast In Process Unspecified. EDMS 16:59 Chest Single View XRAY In Process Unspecified. EDMS 17:24 No provider procedures requiring assistance completed. IV discontinued, intact, cm10 bleeding controlled, No redness/swelling at site. Pressure dressing applied. 17:27 Provided Education on: ER process and procedures. . cm10 Administered Medications: 16:22 Drug: Ondansetron IVP 4 mg IVP once; over 2 minutes Route: IVP; Site: left antecubital; ap3 17:09 Follow up: Response: No adverse reaction ap3 17:20 Drug: Amoxicillin-Clavulanate PO 875 mg PO once Route: PO; ap3 17:24 Follow up: Response: No adverse reaction cm10 Medication: 17:27 VIS not applicable for this client. cm10 Outcome: 17:08 Discharge ordered by rn 17:27 Discharged to home via wheelchair, with family, cm10 17:27 Condition: good 17:27 Discharge instructions given to patient, Instructed on discharge instructions, follow up and referral plans. medication usage, Demonstrated understanding of instructions, follow-up care, medications, Prescriptions given X 2, 17:32 Patient left the ED. ap3 Signatures: Dispatcher [employer] EDMS Dillon Jordan MD MD rn Hall, Patricia, RN RN ph Prokisch, Amanda, RN RN ap3 Lisa Lopez RN RN cm10
--- NOTE | 2023-06-12 17:08 | EDPHYS ---
Physician Documentation [facility] Name: Bisi Santo Age: 53 yrs Sex: Female : 1970 Arrival Date: 06/12/2023 Time: 15:38 Bed 4 Private MD: ED Physician Dillon Jordan HPI: 06/12 16:09 This 53 yrs old Black Female presents to ER via EMS with complaints of AMS. rn 16:09 The patient presents with decreased responsiveness. Onset: The symptoms/episode rn began/occurred today. Possible causes: unknown. Current symptoms: In the emergency department the patient's symptoms have improved. The patient has not experienced similar symptoms in the past. EMS reports patient had dialysis, completed dialysis, noted to have decreased responsiveness and low-grade fever. Patient reports feeling sick since yesterday with nausea/vomiting/cough/congestion. States nephew who lives with her also sick with similar symptoms. Denies any chest pain or shortness of breath.. Historical: - Allergies: 15:42 Codeine; ph 15:42 Demerol; ph 15:42 Morphine; ph 15:42 Sulfa (Sulfonamide Antibiotics); ph - PMHx: 15:42 Diabetes - IDDM; Hypertension; kidney disease (Hypertension); dialysis (biopsy kidney); ph - PSHx: 15:42 biopsy kidney; ph - Immunization history:: Adult Immunizations up to date. - Family history:: not pertinent. - Social history:: Smoking status: unknown. - Hospitalizations: : No recent hospitalization is reported. ROS: 16:09 Constitutional: Negative for fever, chills, and weight loss, ENT: Positive for nasal rn congestion and sore throat Cardiovascular: Negative for chest pain, palpitations, and edema, Respiratory: Patient reports cough, negative for shortness of breath Abdomen/GI: Positive for nausea/vomiting/diarrhea. MS/Extremity: Negative for injury and deformity, Skin: Negative for injury, rash, and discoloration, Neuro: Positive for generalized weakness. Exam: 16:09 Constitutional: This is a well developed, well nourished patient who is awake, rn somnolent, shaking Head/Face: Normocephalic, atraumatic. ENT: No stridor. Dry mucous membranes. Neck: Trachea midline, no masses palpated, and no cervical lymphadenopathy. Supple, full range of motion without nuchal rigidity, or vertebral point tenderness. No Meningismus. Cardiovascular: Regular rate and rhythm. No pulse deficits. Respiratory: No increased work of breathing, no retractions or nasal flaring. Abdomen/GI: Soft, no focal tenderness. No distention MS/ Extremity: Pulses equal, no cyanosis. Neurovascular intact. Full, normal range of motion. Equal circumference. Neuro: Awake, somnolent, GCS 15, moves all 4 extremities with equal strength that is 4/5 16:40 ECG was reviewed by the Attending Physician. rn Vital Signs: 15:44 BP 149 / 67; Pulse 89; Resp 19; Temp 98.8(O); Pulse Ox 100% on R/A; ap3 17:09 Pulse 85; Pulse Ox 100% on R/A; ap3 MDM: 15:42 Patient medically screened. rn 17:06 Differential Diagnosis: electrolyte abnormality, hypoglycemia, pneumonia, volume rn depletion, Viral syndrome, COVID, flu. Data reviewed: vital signs, nurses notes, lab test result(s), radiologic studies, CT scan, plain films, and as a result, I will discharge patient. Counseling: I had a detailed discussion with the patient and/or guardian regarding the historical points, exam findings, and any diagnostic results supporting the discharge/admit diagnosis, lab results, radiology results, the need for outpatient follow up, to return to the emergency department if symptoms worsen or persist or if there are any questions or concerns that arise at home. Response to treatment: the patient's symptoms have mildly improved after treatment, and as a result, I will discharge patient. Special discussion: I discussed with the patient/guardian in detail that at this point there is no indication for admission to the hospital. It is understood, however, that if the symptoms persist or worsen the patient needs to return immediately for re-evaluation. Based on the history and exam findings, there is no indication for further emergent testing or inpatient evaluation. I discussed with the patient/guardian the need to see the primary care provider for further evaluation of the symptoms. ED course: Patient most likely with viral respiratory infection given exposure to nephew with identical symptoms. Chest x-ray negative for pneumonia per my interpretation. CT abdomen pelvis without acute findings. COVID and flu negative. No oxygen requirement here. Patient feels a little better. Will DC home with antibiotics given dialysis patient and return precautions given and understood.. 06/12 15:43 Order name: Blood Culture Adult (2) rn 06/12 15:43 Order name: CBC with Diff; Complete Time: 16:51 rn 06/12 15:43 Order name: CMP; Complete Time: 16:51 rn 06/12 15:43 Order name: Lactate w/ 2H reflex if indic.; Complete Time: 16:57 rn 06/12 15:43 Order name: Protime (+inr); Complete Time: 16:51 rn 06/12 15:43 Order name: Ptt, Activated; Complete Time: 16:51 rn 06/12 15:43 Order name: Flu; Complete Time: 16:51 rn 06/12 15:43 Order name: Strep rn 06/12 15:43 Order name: SARS RAPID; Complete Time: 16:51 rn 06/12 16:38 Order name: Throat Culture EDIL 06/12 15:43 Order name: Chest Single View XRAY; Complete Time: 17:03 rn 06/12 15:44 Order name: CT Abd/Pelvis - Without Contrast; Complete Time: 17:03 rn 06/12 15:43 Order name: EKG; Complete Time: 15:44 06/12 15:43 Order name: Accucheck; Complete Time: 16:22 06/12 15:43 Order name: Cardiac monitoring; Complete Time: 15:48 06/12 15:43 Order name: EKG - Nurse/Tech; Complete Time: 15:58 06/12 15:43 Order name: IV Saline Lock - Large Bore; Complete Time: 16:10 06/12 15:43 Order name: Labs collected and sent; Complete Time: 16:10 06/12 15:43 Order name: O2 Per Protocol; Complete Time: 15:48 06/12 15:43 Order name: O2 Sat Monitoring; Complete Time: 15:48 06/12 15:43 Order name: Vital Signs; Complete Time: 15:48 rn EC:40 Rate is 86 beats/min. Rhythm is regular. QRS [place] is Normal. [place] interval is normal. QRS rn interval is normal. QT interval is normal. No Q waves. T waves are Normal. No ST changes noted. Clinical impression: NSR w/ Non-specific ST/T Changes. Interpreted by me. Reviewed by me. Administered Medications: 16:22 Drug: Ondansetron IVP 4 mg IVP once; over 2 minutes Route: IVP; Site: left antecubital; ap3 17:09 Follow up: Response: No adverse reaction ap3 17:20 Drug: Amoxicillin-Clavulanate PO 875 mg PO once Route: PO; ap3 17:24 Follow up: Response: No adverse reaction cm10 Disposition Summary: 06/12/23 17:08 Discharge Ordered Notes: Location: Home rn Problem: new rn Symptoms: have improved rn Condition: Stable rn Diagnosis - Fever, unspecified rn - Cough rn - Other malaise and fatigue rn Followup: rn - With: Private Physician - When: As needed - Reason: Recheck today's complaints, Re-evaluation by your physician Discharge Instructions: - Discharge Summary Sheet rn - Fever, Adult rn - Cough, Adult rn Forms: - Medication Reconciliation Form rn - Thank You Letter rn - Antibiotic 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
[2023-06-12 18:13] VITALS: BP 149/67; TEMP 98.8; O2SAT 100
== END ==
LOC: ER 15:38
DX: R50.9 Fever, unspecified (principal); R05.9 Cough, unspecified; R53.81 Other malaise; R53.83 Other fatigue; Z11.52 Encounter for screening for COVID-19; I12.0 Hypertensive chronic kidney disease with stage 5 chronic kidney disease or end stage renal disease; E11.22 Type 2 diabetes mellitus with diabetic chronic kidney disease; N18.6 End stage renal disease; Z99.2 Dependence on renal dialysis; Z88.2 Allergy status to sulfonamides; Z88.5 Allergy status to narcotic agent
CPT/HCPCS: 87040; 87070; 85025; 36415; 85610; 87081; 83605; 85730; 80053; 87804 ×2; 74176; 71045; 87811; J2405; 93005

== ENCOUNTER 2023-07-31 10:17 | Inpatient (IN) | payer BC, OTHER ==
--- OUTSIDE RECORDS SUMMARY | 2023-07-31 10:24 | XMS REPORT | Clinical Summary ---
Author Name Unknown Organization [facility] Address [address] [place] [address] Care Team Providers Care Geochemical Manager Name Role Phone Cassie Porter MD Unavailable [phone] Social History Tobacco Use Types Packs/Day Years Used Date Smoking Tobacco: Never Assessed Sex and Gender Information Value Date Recorded Sex Assigned at Not on file Gender Identity Not on file Sexual Orientation Not on file Plan of Treatment Not on file Care Teams Geochemical Manager Relationship Specialty Start Date End Date Cassie Porter MD [address] [place] [address] PCP - External Referring 04/29/18
[2023-07-31 11:00] LABS: Absolute Eosinophils 0.2 K/uL (0-0.5); Absolute Lymphocytes (CBC) 2.3 K/uL (0.7-4.9); Absolute Monocytes 0.6 K/uL (0.1-1.3); Absolute Neutrophil 3.3 K/uL (1.8-8.0); Basophils % 0.6 % (0-1.3); Eosinophils % 3.3 % (0-4.4); Hemoglobin 11.6 g/dL (12.0-15.0); Lymphocytes % 36.2 % (15.3-44.8); MCH 30.8 pg (27.0-35.0); MCHC 33.1 g/dL (32.0-36.0); MCV 92.9 fL (80-100); Monocytes % 8.7 % (3.3-12.3); Neutrophils % 51.2 % (41.7-73.7); Nucleated Red Blood Cells % 0.1 % (0-0); Platelets 159 thou/uL (152-406); RBC Red Blood Cell Count 3.77 M/uL (3.86-4.86); Red Cell Distribution Width 13.9 % (12.1-15.2)
--- NOTE | 2023-07-31 11:01 | RAD REPORT ---
EXAM DESCRIPTION: CT - Head Brain Wo Cont - 07/31/2023 10:48 am CLINICAL HISTORY: headache, AMS COMPARISON: Head Brain Wo Cont dated 02/20/2023; Head Brain Wo Cont dated 02/17/2023 TECHNIQUE: Noncontrast head CT images ad were obtained without IV contrast. Multiplanar reformats we re generated and reviewed. All CT scans are performed using dose optimization technique as appropriate and may include automated exposure control or mA/KV adjustment according to patient size. FINDINGS: No intracranial hemorrhage, mass, or edema. Midline structures are unremarkable. Normal ventricular caliber for age. Stable elongated focus of hypoattenuation in the left caudate head region, suggestive of a small rebecca te infarct. Knight-white matter differentiation is otherwise preserved, without evidence of acute infar ct. No abnormal extra-axial fluid collections. Mastoid air cells and visualized portions of the paranasal sinuses are clear. No acute bony findings. IMPRESSION: No evidence of an acute intracranial process. Stable focus of hypoattenuation in the l eft caudate head region, suggestive of a small remote infarct.
--- NOTE | 2023-07-31 11:02 | RAD REPORT ---
EXAM DESCRIPTION: RADChest Single View07/31/2023 10:47 am CLINICAL HISTORY: CHEST PAIN COMPARISON: Chest Single View dated 07/05/2023; Chest Single View dated 06/12/2023; Chest Single View d ated 03/22/2023; Chest Single View dated 02/25/2023 TECHNIQUE: Portable AP view of the chest. FINDINGS: Right IJ dialysis catheter unchanged in position. The lungs are clear. No pneumothorax or effusion. The cardiomediastinal contours are unremarkable. IMPRESSION: No acute cardiopulmonary process.
[2023-07-31 12:01] LABS: PT Prothrombin Time 11.8 SECONDS (9.5-12.5); Protime INR 1.07
[2023-07-31 12:24] LABS: Anion Gap 8.5 mEq/L (5.0-15.0); Magnesium 2.1 mg/dL (1.6-2.4); Potassium 3.5 mEq/L (3.5-5.1); Troponin High Sensitivity 5.8 pg/mL (<58.9)
--- NOTE | 2023-07-31 13:02 | ER ---
Nurse's Notes [facility] Name: Bisi Santo Age: 53 yrs Sex: Female : 1970 Arrival Date: 07/31/2023 Time: 10:17 Bed 18 Private MD: Diagnosis: Altered mental status, unspecified;Essential (primary) hypertension;Chest pain, unspecified;End stage renal disease Presentation: 07/30 10:20 Chief complaint:. Coronavirus screen: Vaccine status: Patient reports receiving the 2nd me1 dose of the covid vaccine. Ebola Screen: No symptoms or risks identified at this time. Initial Sepsis Screen: Does the patient meet any 2 criteria? No. Patient's initial sepsis screen is negative. Does the patient have a suspected source of infection? No. Patient's initial sepsis screen is negative. Risk Assessment: Do you want to hurt yourself or someone else? Patient reports no desire to harm self or others. Onset of symptoms was July 31, 2023. 10:20 Method Of Arrival: EMS: [facility] [place] 10:20 Acuity: SONIA 2 me1 Triage Assessment: 10:26 General: Appears uncomfortable, obese, well groomed, well developed, Behavior is calm, me1 cooperative, appropriate for age, Reports c/o right sided chest pain that radiates to right upper back that started during dialysis. 1.8 L taken off today. Right subclavian dialysis access noted, dressing clean, dry and intact. Pain: Complains of pain in right breast Pain radiates to right scapular area Pain currently is 7 out of 10 on a pain scale. Quality of pain is described as sharp, shooting, Pain began suddenly, 30 min ago. Is continuous. Neuro: Level of Consciousness is awake, alert, obeys commands, slow to respond verbally.. Oriented to person, place, situation, Paratransit Driver are equal bilaterally Moves all extremities. Speech is normal, Facial symmetry appears normal, Pupils are PERRLA, Intact. Cardiovascular: Reports chest pain, Capillary refill < 3 seconds Patient's skin is warm and dry. Respiratory: Airway is patent Trachea midline Respiratory effort is even, unlabored, Respiratory pattern is regular, symmetrical. :. 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 - Social history:: Smoking status: Patient denies any tobacco usage or history of. Screenin:33 [facility] ED Fall Risk Assessment (Adult) History of falling in the last 3 months, me1 including since admission No falls in past 3 months (0 pts) Confusion or Disorientation No (0 pts) Intoxicated or Sedated No (0 pts) Impaired Gait No (0 pts) Mobility Assist Device Used No (0 pt) Altered Elimination No (0 pt) Score/Fall Risk Level 0 - 2 = Low Risk Maintained a safe environment, Provided non-skid footwear, Hourly rounding (assess needs \T\ fall precautionary measures) done. Abuse screen: Denies threats or abuse. Nutritional screening: No deficits noted. Tuberculosis screening: No symptoms or risk factors identified. Assessment: 10:32 General: See triage assessment. . Cardiovascular: Rhythm is sinus rhythm. me1 Vital Signs: 10:20 BP 188 / 100 Sitting; Pulse 75; Resp 18; Temp 98.2(O); Pulse Ox 100% on R/A; Weight me1 72.57 kg; Height 5 ft. 2 in. ; Pain 7/10; 12:09 BP 178 / 100; Pulse 74; Resp 18; Pulse Ox 100% ; Pain 7/10; me1 13:00 BP 196 / 93; Pulse 73; Resp 18; Pulse Ox 100% on R/A; me1 14:00 BP 187 / 95; Pulse 80; Resp 16; Pulse Ox 100% on R/A; me1 15:00 BP 183 / 136; Pulse 74; Resp 20; Pulse Ox 100% on R/A; me1 16:00 BP 178 / 101; Pulse 73; Resp 18; Pulse Ox 100% on R/A; me1 17:00 BP 135 / 99; Pulse 78; Resp 14; Pulse Ox 100% on R/A; me1 10:20 Body Mass Index 29.26 (72.57 kg, 157.48 cm) me1 10:20 Pain Scale: Adult me1 12:09 Pain Scale: Adult me1 [place] Coma Score: 10:33 Eye Response: spontaneous(4). Motor Response: obeys commands(6). Verbal Response: me1 oriented(5). Total: 15. NIH Stroke Scale Scores: 10:28 NIHSS Score: 0 ms3 ED Course: 10:19 Patient arrived in ED. me1 10:20 Laurent Adam DO is Attending Physician. ms3 10:26 Triage completed. me1 10:26 Arm band placed on Patient placed in an exam room. EKG completed in triage. Results me1 shown to MD. EKG completed in triage. Results shown to MD. EKG done per protocol. Performed by ED Staff. Shown to ED physician. 10:26 EKG done, by ED staff, reviewed by Laurent Adam DO. me1 10:30 Initial lab(s) drawn, by ED staff. me1 10:30 Inserted saline lock: 20 gauge in right antecubital area, using aseptic technique. me1 10:33 bus driver/monitor on. Pulse ox on. NIBP on. me1 10:33 Patient has correct armband on for positive identification. Bed in low position. Call az1 light in reach. Side rails up X2. Provided Education on: POC. Verbalized understanding. . 10:49 XRAY Chest (1 view) In Process Unspecified. EDMS 10:50 CT Head Brain wo Cont In Process Unspecified. EDMS 11:05 Steff Asencio, RN is Primary Nurse. me1 11:11 Patient maintains SpO2 saturation greater than 95% on room air. me1 11:11 Lab(s) recollected, by me. me1 12:05 Lab(s) recollected, by manager cath lab, sent to lab. me1 13:00 Jethro Byrnes MD is Hospitalizing Provider. ms3 13:30 CT Aorta for Dissection In Process Unspecified. EDMS 13:44 Brain Wo Cont In Process Unspecified. EDMS 17:30 No provider procedures requiring assistance completed. Patient admitted, IV remains in me1 place. Administered Medications: No medications were administered Medication: 10:33 VIS not applicable for this client. me1 Outcome: 13:01 Decision to Hospitalize by Provider. ms3 17:30 Admitted to Med/surg accompanied by tech, via wheelchair, me1 17:30 Condition: stable 17:31 Admitted to Med/surg accompanied by tech, via wheelchair, room 231, with chart, Report me1 called to Report faxed at 17:04. 17:31 Instructed on the need for admit, 18:17 Patient left the ED. bp NIH Stroke Scale - NIH Stroke Score Date: 07/31/2023 Time: 10:28 Total Score = 0 10. Dysarthria (speech clarity - read or repeat words) - 0(Normal) 11. Extinction and Inattention (visual/tactile/auditory/spatial/personal) - 0(No abnormality) 1a. Level of Consciousness (LOC) - 0(Alert) 1b. Level of Consciousness (LOC) (Month \T\ Age) - 0(Both) 1c. LOC Commands (Open \T\ Closes Eyes/Orthopedic Nurse Practitioner) - 0(Both) 2. Best Gaze (Lateral Gaze Paresis) - 0(Normal) 3. Visual Field Loss - 0(No visual loss) 4. Facial Palsy - 0(Normal) 5a. Left Arm: Motor (10-second hold) - 0(No drift) 5b. Right Arm: Motor (10-second hold) - 0(No drift) 6a. Left Leg: Motor (5-second hold - always test supine) - 0(No drift) 6b. Right Leg: Motor (5-second hold - always test supine) - 0(No drift) 7. Limb Ataxia (finger/nose \T\ heel/tabor - test with eyes open) - 0(Absent) 8. Sensory Loss (pinprick arms/legs/face) - 0(Normal) 9. Best Language: Aphasia (description/naming/reading) - 0(No aphasia) Initials: ms3 Signatures: Dispatcher [employer] EDNeeraj Zuniga, RN RN Laurent Henderson DO DO ms3 Steff Asencio, ISAIAH RN me1 Corrections: (The following items were deleted from the chart) 11:12 11:11 Inserted saline lock: 20 gauge in right antecubital area, using aseptic me1 technique. me1 12:07 12:06 EKG done, by ED staff, reviewed by Laurent Adam DO me1 me1
--- NOTE | 2023-07-31 13:02 | EDPHYS ---
Physician Documentation [facility] Name: Bisi Santo Age: 53 yrs Sex: Female : 1970 Arrival Date: 07/31/2023 Time: 10:17 Bed 18 Private MD: ED Physician Laurent Adam HPI: 07/30 10:28 This 53 yrs old Black Female presents to ER via EMS with complaints of Chest Pain > 30 ms3 y/o, Altered Mental Status. 10:28 53-year-old female with past medical history of diabetes, end-stage renal disease, ms3 hypertension presents to the emergency department for chest pain located on the right side that began during dialysis. Patient rates pain a 7/10 and states the pain radiates to her back. Patient also endorses headache. Patient denies any alleviating or inciting factors. CLERICAL AND OFFICE SUPPORT WORKERS: 10:26 LMP N/A - Post-menopause, Not me1 Historical: - Allergies: 10:26 Sulfa (Sulfonamide Antibiotics); me1 10:26 Codeine; me1 10:26 Morphine; me1 10:26 Demerol; me1 - PMHx: 10:26 Diabetes - IDDM; Dialysis (biopsy kidney); Hypertension; kidney disease (Hypertension); me1 - PSHx: 10:26 biopsy kidney; me1 - Immunization history:: Adult Immunizations up to date. - Social history:: Smoking status: Patient denies any tobacco usage or history of. ROS: 13:50 Constitutional: Negative for fever, and chills. Neck: Negative for injury, pain, and ms3 swelling, 13:50 Respiratory: Negative for shortness of breath, cough, wheezing, and pleuritic chest pain, Abdomen/GI: Negative for abdominal pain, nausea, vomiting, diarrhea, and constipation, 13:50 MS/Extremity: Negative for injury and deformity, Skin: Negative for injury, rash, and discoloration, 13:50 Cardiovascular: Positive for chest pain, 13:50 Back: Positive for Back pain, Exam: 10:28 Neuro: Orientation: is normal, Mentation: is normal, Memory: is normal, Cranial nerves: ms3 CN I not tested, CN II- XII are normal as tested, Motor: is normal, Sensation: is normal, Patient is slow to respond and answer questions, 13:50 Constitutional: This is a well developed, well nourished patient who is awake, alert, ms3 and in no acute distress. Head/Face: Normocephalic, atraumatic. Chest/axilla: Normal chest wall appearance and motion. Nontender with no deformity. Cardiovascular: Regular rate and rhythm with a normal S1 and S2. No gallops, murmurs, or rubs. Normal PMI, no JVD. No pulse deficits. Respiratory: Lungs have equal breath sounds bilaterally, clear to auscultation and percussion. No rales, rhonchi or wheezes noted. No increased work of breathing, no retractions or nasal flaring. Abdomen/GI: Soft, non-tender, with normal bowel sounds. No distension or tympany. No guarding or rebound. No evidence of tenderness throughout. Skin: Warm, dry with normal turgor. Normal color with no rashes, no lesions, and no evidence of cellulitis. MS/ Extremity: Pulses equal, no cyanosis. Neurovascular intact. Full, normal range of motion. 13:52 ECG was reviewed by the Attending Physician. ms3 Vital Signs: 10:20 BP 188 / 100 Sitting; Pulse 75; Resp 18; Temp 98.2(O); Pulse Ox 100% on R/A; Weight me1 72.57 kg; Height 5 ft. 2 in. ; Pain 7/10; 12:09 BP 178 / 100; Pulse 74; Resp 18; Pulse Ox 100% ; Pain 7/10; me1 13:00 BP 196 / 93; Pulse 73; Resp 18; Pulse Ox 100% on R/A; me1 14:00 BP 187 / 95; Pulse 80; Resp 16; Pulse Ox 100% on R/A; me1 15:00 BP 183 / 136; Pulse 74; Resp 20; Pulse Ox 100% on R/A; me1 16:00 BP 178 / 101; Pulse 73; Resp 18; Pulse Ox 100% on R/A; me1 17:00 BP 135 / 99; Pulse 78; Resp 14; Pulse Ox 100% on R/A; me1 10:20 Body Mass Index 29.26 (72.57 kg, 157.48 cm) ny1 10:20 Pain Scale: Adult me1 12:09 Pain Scale: Adult me1 NIH Stroke Scale Scores: 10:28 NIHSS Score: 0 ms3 [place] Coma Score: 10:33 Eye Response: spontaneous(4). Motor Response: obeys commands(6). Verbal Response: me1 oriented(5). Total: 15. MDM: 11:12 Patient medically screened. ms3 13:49 ED course: Discussed case with Dr Rey and he will come by and see patient after ms3 clinic.. 16:32 Differential diagnosis: abnormal EKG, acute myocardial infarction, coronary artery ms3 disease pneumonia. Data reviewed: vital signs, nurses notes, lab test result(s), EKG, radiologic studies, and as a result, I will discharge patient. Consideration of Admission/Observation Patient was admitted/placed on observation. Management of patient was discussed with the following: Hospitalist: Dr Byrnes. Assistant Store Manager Trainee: Dr Rey- Will see patient after clinic. Independent interpretation of the following test(s) in the Emergency Department EKG: See my EKG interpretation above. Care significantly affected by the following chronic conditions: Diabetes, Hypertension, Chronic Kidney Disease. Counseling: I had a detailed discussion with the patient and/or guardian regarding the historical points, exam findings, and any diagnostic results supporting the discharge/admit diagnosis, lab results, radiology results, the need for further work-up and treatment in the hospital. 07/30 10:28 Order name: Basic Metabolic Panel; Complete Time: 12:40 ms3 07/30 10:28 Order name: CBC with Diff; Complete Time: 11:12 ms3 07/30 10:28 Order name: Magnesium; Complete Time: 12:40 ms3 07/30 10:28 Order name: PT-INR; Complete Time: 12:40 ms3 07/30 10:28 Order name: Troponin HS; Complete Time: 12:40 ms3 07/30 15:06 Order name: CBC with Automated Diff EDMS 07/30 15:06 Order name: CBC with Automated Diff EDMS 07/30 15:06 Order name: Comprehensive Metabolic Panel EDMS 07/30 15:06 Order name: Comprehensive Metabolic Panel EDMS 07/30 15:06 Order name: Troponin High Sensitivity EDMS 07/30 15:06 Order name: Troponin High Sensitivity; Complete Time: 16:32 EDMS 07/30 15:06 Order name: Troponin High Sensitivity EDMS 07/30 15:06 Order name: Troponin High Sensitivity EDMS 07/30 10:28 Order name: XRAY Chest (1 view); Complete Time: 11:12 ms3 07/30 10:28 Order name: CT Head Brain wo Cont; Complete Time: 11:12 ms3 07/30 13:06 Order name: CT Aorta for Dissection; Complete Time: 14:29 ms3 07/30 13:44 Order name: Brain Wo Cont; Complete Time: 15:11 EDMS 07/30 10:28 Order name: EKG; Complete Time: 10:28 ms3 07/30 15:06 Order name: CONS Physician Consult EDMS 07/30 10:28 Order name: Cardiac monitoring; Complete Time: 10:33 ms3 07/30 10:28 Order name: EKG - Nurse/Tech; Complete Time: 10:31 ms3 07/30 10:28 Order name: IV Saline Lock; Complete Time: 11:11 ms3 07/30 10:28 Order name: Labs collected and sent; Complete Time: 11:05 ms3 07/30 10:28 Order name: O2 Per Protocol; Complete Time: 10:33 ms3 07/30 10:28 Order name: O2 Sat Monitoring; Complete Time: 10:33 ms3 07/30 11:02 Order name: Labs - recollect needed: recollect light green and light blue top; Complete bd Time: 11:11 07/30 11:23 Order name: Labs - recollect needed: recollect green and blue top again; Complete Time: bd 12:05 EC:52 Rate is 76 beats/min. Rhythm is regular. Left axis deviation noted. VT interval is ms3 normal. QRS interval is normal. Clinical impression: Normal ECG and with left axis deviation. Interpreted by me. Reviewed by me. Administered Medications: No medications were administered Disposition Summary: 07/31/23 13:01 Hospitalization Ordered Notes: Hospitalization Status: Inpatient Admission ms3 Provider: Jethro Byrnes ms3 Condition: Stable ms3 Problem: new ms3 Symptoms: are unchanged ms3 Bed/Room Type: Standard ms3 Location: Telemetry/MedSurg (Inpatient)(07/31/23 16:53) bd Room Assignment: 231(07/31/23 16:53) bd Diagnosis - Altered mental status, unspecified ms3 - Essential (primary) hypertension ms3 - Chest pain, unspecified ms3 - End stage renal disease ms3 Forms: - Medication Reconciliation Form ms3 - SBAR form ms3 - Leadership Thank You Letter ms3 NIH Stroke Scale - NIH Stroke Score Date: 07/31/2023 Time: 10:28 Total Score = 0 10. Dysarthria (speech clarity - read or repeat words) - 0(Normal) 11. Extinction and Inattention (visual/tactile/auditory/spatial/personal) - 0(No abnormality) 1a. Level of Consciousness (LOC) - 0(Alert) 1b. Level of Consciousness (LOC) (Month \T\ Age) - 0(Both) 1c. LOC Commands (Open \T\ Closes Eyes/Area Manager) - 0(Both) 2. Best Gaze (Lateral Gaze Paresis) - 0(Normal) 3. Visual Field Loss - 0(No visual loss) 4. Facial Palsy - 0(Normal) 5a. Left Arm: Motor (10-second hold) - 0(No drift) 5b. Right Arm: Motor (10-second hold) - 0(No drift) 6a. Left Leg: Motor (5-second hold - always test supine) - 0(No drift) 6b. Right Leg: Motor (5-second hold - always test supine) - 0(No drift) 7. Limb Ataxia (finger/nose \T\ heel/tabor - test with eyes open) - 0(Absent) 8. Sensory Loss (pinprick arms/legs/face) - 0(Normal) 9. Best Language: Aphasia (description/naming/reading) - 0(No aphasia) Initials: ms3 Signatures: Dispatcher [employer] EDCO Sofía Blanc Marcus, DO DO ms3 Steff Asencio, RN RN me1 Corrections: (The following items were deleted from the chart) 13:44 12:58 MR STROKE PROTOCOL+MRI.RAD.BRZ ordered. [facility] EDCO 13:50 10:28 53-year-old female with past medical history of diabetes, end-stage renal ms3 disease, hypertension presents to the emergency department. ms3 13:52 13:50 Constitutional: This is a well developed, well nourished patient who is ms3 awake, alert, and in no acute distress. Head/Face: Normocephalic, atraumatic. Chest/axilla: Normal chest wall appearance and motion. Nontender with no deformity. Cardiovascular: Regular rate and rhythm with a normal S1 and S2. No gallops, murmurs, or rubs. Normal PMI, no JVD. No pulse deficits. Respiratory: Lungs have equal breath sounds bilaterally, clear to auscultation and percussion. No rales, rhonchi or wheezes noted. No increased work of breathing, no retractions or nasal flaring. Abdomen/GI: Soft, non-tender, with normal bowel sounds. No distension or tympany. No guarding or rebound. No evidence of tenderness throughout. Skin: Warm, dry with normal turgor. Normal color with no rashes, no lesions, and no evidence of cellulitis. MS/ Extremity: Pulses equal, no cyanosis. Neurovascular intact. Full, normal range of motion. ms3 13:52 13:50 NIHSS Score: 0 ms3 ms3 14:09 13:01 Telemetry/MedSurg (Inpatient) ms3 bd 14:09 13:01 ms3 bd 16:53 14:09 [facility] ER HOLD bd bd 16:53 14:09 ERHOLD- bd bd
--- NOTE | 2023-07-31 14:07 | RAD REPORT ---
EXAM DESCRIPTION: CT - Angio Aorta For Dissection - 07/31/2023 1:28 pm CLINICAL HISTORY: . Chest and abd pain COMPARISON: May 2023 TECHNIQUE: Computed tomography angiography of the chest, abdomen pelvis were obtained. 100 cc Isovue 370 was administered intravenously. Coronal and sagittal reconstruction were performed. MIP 3D reconstruction was performed All CT scans are performed using dose optimization technique as appropriate and may include automated exposure control or mA/KV adjustment according to patient size. FINDINGS: An aortic dissection is not seen. An aortic aneurysm is not displayed. The celiac, SMA and RYAN are patent . A lung consolidation is not present. A pericardial effusion is not seen. A pleural effusion is not no amina. Cholecystectomy The liver,spleen, pancreas,adrenals and kidneys demonstrate no significant abnormality. There no evidence diverticulitis. Normal appendix No adnexal mass Moderate amount stool within the colon IMPRESSION: Negative for an aortic dissection.
--- NOTE | 2023-07-31 14:43 | RAD REPORT ---
EXAM DESCRIPTION: MRI - Brain Wo Cont - 07/31/2023 1:57 pm CLINICAL HISTORY: Confusion/alteration of consciousness COMPARISON: MRI 2022 TECHNIQUE: Axial, sagittal, and coronal magnetic resonance images of the brain were obtained. FINDINGS: No significant abnormal signal within the brain noted Diffusion-weighted/ADC mapping does not reveal evidence of acute infarction. The ventricles are normal caliber. An extra-axial fluid collection is not noted. Fluid within the sinuses/mastoids is not seen. Mucus retention cyst right maxillary sinus IMPRESSION: No acute intracranial abnormality noted
[2023-07-31] MEDS ORDERED: ACETAMINOPHEN 500 MG TAB PO PRN (15:02)
--- NOTE | 2023-07-31 21:50 | P.SSS ---
Patient History Date of Service: 07/31/23 Reason for admission: ALTERED MENTAL STATUS History of Present Illness: ROCAEL HAS BEEN TO HD TODAY. SHE WOKE UP SLOW AND DISORIENTED TODAY. SHE WAS BROUGHT TO ER AFTER HD. I SAW HER IN ER AT LUNCH TIME. SHE IS SLOW BUT RESPONDS WELL. SHE HAS CHEST PAIN ON RIGHT SIDE THAT IS MORE WITH BREATHING. Allergies codeine Allergy (Unknown, Verified 06/28/15 16:01) Unknown meperidine [From Demerol] Allergy (Unknown, Verified 05/28/20 20:02) Unknown morphine Allergy (Unknown, Verified 05/28/20 20:02) hallucination Sulfa (Sulfonamide Antibiotics) Allergy (Unknown, Verified 05/28/20 20:02) Unknown Home Medications: Atorvastatin Calcium [Lipitor] 40 mg PO BEDTIME #30 tab 02/27/23 Folic Acid 1 mg PO DAILY #30 tab 02/27/23 Nifedipine Xl [Procardia Xl*] 30 mg PO DAILY #30 tab 02/27/23 carvediloL [Coreg*] 25 mg PO BID 6AM 6PM #60 tab 02/27/23 Furosemide mg PO DAILY 07/31/23 Hydralazine [Apresoline*] 50 mg PO Q8HR 07/31/23 Insulin Glargine,Hum.rec.anlog [Lantus] 20 units SQ DAILY 07/31/23 Ondansetron [Zofran] 4 mg PO Q6H PRN 07/31/23 Sevelamer Carbonate 1 pkt PO TIDWM 07/31/23 - Past Medical/Surgical History Has patient received pneumonia vaccine in the past: Yes Diabetic: Yes -: hyperlipidemia -: Hypertension -: Type 2 diabetes -: HLD -: CKD -: partial hysterectomy -: cyst removed from groin -: carpal tunnel repair -: Cholcystectomy - Family History Mother -: Hypertension, Diabetes Brother -: Diabetes Father -: Hypertension, Diabetes - Social History Smoking Status: Never smoker Alcohol use: No CD- Drugs: No Caffeine use: No Place of Residence: Home Review of Systems 10-point ROS is otherwise unremarkable General: Weakness Cardiovascular: Chest Pain Physical Examination - Vital Signs Temperature: 98.2 F Blood Pressure: 135/99 Pulse: 78 Respirations: 14 - Physical Exam General: Oriented x3, Acute distress, Mild distress HEENT: Atraumatic, PERRLA, Mucous membr. moist/pink, EOMI, Sclerae nonicteric Neck: Supple, 2+ carotid pulse no bruit, No LAD, Without JVD or thyroid abnormality Respiratory: Clear to auscultation bilaterally, Normal air movement Cardiovascular: Regular rate/rhythm, Normal S1 S2 Gastrointestinal: Normal bowel sounds, No tenderness Musculoskeletal: No tenderness Integumentary: No rashes Neurological: Normal speech (SHE WAS SLOW ALSO IN OFFICE WHEN I SAW HER RECENTLY FOR FIRST TIME. ), Normal strength at 5/5 x4 extr Lymphatics: No axilla or inguinal lymphadenopathy - Studies Laboratory Data (last 24 hrs) 07/31/23 07/31/23 07/31/23 11:40 11:40 10:40 WBC 6.40 Hgb 11.6 L Hct 35.0 L Plt Count 159 PT 11.8 INR 1.07 Sodium 135 L Potassium 3.5 BUN 21 H Creatinine 3.00 H Glucose 103 Magnesium 2.1 - Diagnosis (Problem(s)) (1) Uremic pericarditis Current Visit: Yes Status: Acute Plan: THIS THE MAIN ISSUE CT CHEST IS NEGATIVE CT DISSECTION CHECK D DIMER. PATIENTS WITH ESRD DO EXPERIENCE PERICARDITIS SHE BEING SLIGHTLY COGNITIVELY IMPAIRED THIS HAS CONFUSED HER SOMEWHAT. MRI BRAIN NEG. (2) Altered mental status Onset Date: 12/12/16 Current Visit: No Status: Acute Plan: ABOVE NO ORGANIC FINDING SO FAR DR PEREA IS CONSULTED. - Disposition Disposition: ROUTINE DISCHARGE
[2023-07-31 23:53] VITALS: O2SAT 99; BMI 29.2
[2023-08-01 05:07] LABS: Absolute Eosinophils 0.2 K/uL (0-0.5); Absolute Lymphocytes (CBC) 1.7 K/uL (0.7-4.9); Absolute Monocytes 0.6 K/uL (0.1-1.3); Absolute Neutrophil 2.9 K/uL (1.8-8.0); Basophils % 0.4 % (0-1.3); Eosinophils % 3.6 % (0-4.4); Hematocrit 33.1 % (36.0-45.0); Hemoglobin 10.8 g/dL (12.0-15.0); Lymphocytes % 31.6 % (15.3-44.8); MCH 30.6 pg (27.0-35.0); MCHC 32.7 g/dL (32.0-36.0); MCV 93.4 fL (80-100); MPV 8.8 fL (7.6-11.3); Monocytes % 10.6 % (3.3-12.3); Neutrophils % 53.8 % (41.7-73.7); Nucleated Red Blood Cells % 0.1 % (0-0); Platelets 156 thou/uL (152-406); RBC Red Blood Cell Count 3.55 M/uL (3.86-4.86)
[2023-08-01 05:39] LABS: Albumin/Globulin Ratio 0.8 (1.1-1.8); Anion Gap 12.2 mEq/L (5.0-15.0); Bilirubin Total 0.3 mg/dL (0.2-1.0); Potassium 4.2 mEq/L (3.5-5.1)
[2023-08-01] MEDS ORDERED: ONDANSETRON 4 MG (ODT) TAB PO PRN (08:01)
[2023-08-01] MEDS: HYDRALAZINE HCL 25 MG TABLET PO SCH (09:13)
[2023-08-01] MEDS: FOLIC ACID 1 MG TABLET PO SCH (09:13)
[2023-08-01] MEDS: NIFEDIPINE XL 30 MG TABLET PO SCH (09:13)
[2023-08-01] MEDS: FUROSEMIDE 40 MG TABLET PO SCH (09:13)
[2023-08-01] MEDS: INSULIN GLARGINE 100 UNIT/ML SQ SCH (09:14)
[2023-08-01] MEDS: SEVELAMER CARBONATE 0.8 GM PACKET PO SCH (12:10)
--- NOTE | 2023-08-01 13:24 | ECHO ---
HEIGHT: 5 ft 2 in WEIGHT: 160 lb 0 oz DATE OF STUDY: 08/01/[address]: Jethro Byrnes MD 2-DIMENSIONAL: YES M.MODE: YES DOPPLER: YES COLOR FLOW: YES TDS: NO PORTABLE: YES DEFINITY: NO BUBBLE STUDY: NO DIAGNOSIS: PERICARDITIS CARDIAC HISTORY: CATHERIZATION: SURGERY: PROSTHETIC VALVE: PACEMAKER: MEASUREMENTS (cm) DIASTOLIC (NORMALS) SYSTOLIC (NORMALS) IVSd 0.8 (0.6-1.2) LA Diam 3.1 (1.9-4.0) LVEF 55-60% LVIDd 3.6 (3.5-5.7) LVIDs 2.2 (2.0-3.5) %FS 40% LVPWd 0.8 (0.6-1.2) Ao Diam 2.8 (2.0-3.7) 2 DIMENSIONAL ASSESSMENT: RIGHT ATRIUM: NORMAL LEFT ATRIUM: NORMAL RIGHT VENTRICLE: NORMAL LEFT VENTRICLE: NORMAL TRICUSPID VALVE: MILD TRICUSPID REGURGITATION MITRAL VALVE: NORMAL PULMONIC VALVE: NORMAL AORTIC VALVE: NORMAL PERICARDIAL EFFUSION: NONE AORTIC ROOT: NORMAL LEFT VENTRICULAR WALL MOTION: NORMAL. DOPPLER/COLOR FLOW: NORMAL. COMMENTS: 1. NORMAL LEFT VENTRICULAR SYSTOLIC FUNCTION, EJECTION FRACTION 55-60%, NORMAL WALL MOTION. 2. NORMAL DIASTOLIC FUNCTION. 3. MILD TRICUSPID REGURGITATION, RIGHT VENTRICULAR SYSTOLIC PRESSURE 30-35mmHg. TECHNOLOGIST: JEREMIE ESCOBEDO
--- NOTE | 2023-08-01 14:17 | EKG ---
Test Date: 2023-07-31 Test Time: 10:20:02 Eyeletter: SHELIA MEASUREMENT RESULTS: Intervals: Rate: 76 VT: 142 QRSD: 94 QT: 410 QTc: 461 [place]: P: 52 VT: 142 QRS: -31 T: 24 INTERPRETIVE STATEMENTS: Normal sinus rhythm Left axis deviation Abnormal ECG Compared to ECG 07/05/2023 12:20:22 Left-axis deviation now present Electronically Signed On 08-01-23 14:13:28 FLY MAKER by Isaiah Hogan
--- NOTE | 2023-08-01 16:38 | RAD REPORT ---
EXAM DESCRIPTION: NM - Vent Perfusion VQ Scan - 08/01/2023 2:06 pm CLINICAL HISTORY: rule out PE COMPARISON: Chest Single View dated 07/31/2023; Angio Aorta For Dissection dated 07/31/2023 TECHNIQUE: 20.3mCi Xe-133 gas inhaled and 6.8mCi Tc-MAA IV. Planar ventilation scan was performed in posterior projection after Xe-133 gas inhalation (wash-in, e quilibrium, and wash-out phases) followed by perfusion scan with Tc-MAA IV in multiple projections. Examination is correlated with recent chest radiograph. FINDINGS: Normal ventilation with appropriate wash-out and no significant air-trapping. No mismatched segmental perfusion defect. IMPRESSION: Pulmonary embolism absent.
[2023-08-01] MEDS: carvediloL 25 MG TAB PO SCH (17:05)
--- NOTE | 2023-08-01 20:30 | CON ---
Reason For Consultation: Consultation is called because of possible stroke. History Of Present Illness: Ms. Santo is a 53-year-old, right-handed, patient with a history of end-stage renal disease, on hemodialysis; diabetes mellitus; hypertension, who was having dialysis on the 6th when she had chest pain. She said going from the front straight through to betw een her shoulder blades. She was evaluated by cardiology service to rule out myocardial infarction. In addition, Dr. Byrnes felt the patient had some more confusion, disorientation, and a possible acut e on chronic encephalopathy. Her head CT scan was done at 10:28 on 07/31/2023, the study showed no a cute ischemic or hemorrhagic findings. There was stable focus of hypoattenuation in the left caudate head suggestive of a small remote infarct. The patient does acknowledge she did have a stroke affec ting her right body, which is likely the stroke was identified. MRI of the brain done 2.5 hours late r ruled out the presence of an acute ischemic or hemorrhagic stroke. The study in fact did not menti on the findings as identified on the CT scan. Study was reportedly normal. Echocardiogram showed ej ection fraction of 50% to 55% and was a normal study except for mild tricuspid regurgitation and the right ventricular systolic pressure of 30% to 35%. At the time of my evaluation, which is a day foll owing her episode of chest pain, the chest pain has resolved. She said there was no significant pain in the chest at this point and she felt that she was not confused. She is back to her baseline. Pr ior to that, she did have a CT scan to rule out aortic dissection that was negative. Laboratory Studies: Showed a normal white blood cell count, stably low hemoglobin around 11.6 and to day 10.8, otherwise normal basic metabolic panel. Her D-dimer was elevated at 896, possibly related to her renal failure. Creatinine 4.61, BUN 28, blood glucose ranged from 167 to 180, and liver funct ion studies were unremarkable. Past Medical History: As noted. Past Surgical History: Kidney biopsy and access port for dialysis. Social History: No alcohol, tobacco, or IV drug use. Family History: Noncontributory. Current Medications: Tylenol 500 mg every 6 hours as needed, Lipitor 40 mg at bedtime, Coreg 25 mg t wice daily, folic acid 1 mg daily, Lasix 40 mg daily, Apresoline 50 mg every 8 hours, Semglee insulin 20 units subcutaneously daily, Procardia XL 30 mg daily, Zofran 4 mg 6 hours as needed, and Sevelame r Carbonate 3 times daily. Review of Systems: She does report some baseline weakness in the right upper extremity. She denies any confusion. No s welling in her extremities. No other issues except she has some pain in the back of her head, which has perhaps she says worsened since she has been lying in bed for an extended period. In addition, s he did give a history of migraines in the past and occasional regular headaches. Physical Examination: Vital Signs: Blood pressure 107/74 up to 177/85, pulse of 80 to 88, respiratory rate 16 to 18, tempe rature 98.4, oxygen saturation 99%. Weight 106 pounds, height 5 feet 2 inches, BMI 29.3. General: Ms. Santo is lying in her hospital bed. Her sister is at the bedside. HEENT: She appears normocephalic, atraumatic. Sclerae anicteric. Oropharynx is pink, moist. Neck: Supple. Chest: Clear. Heart: Regular. No significant edema, cyanosis, or clubbing. Neurologic: Subtle weakness in the right upper extremity, 4/5; right lower extremity also slightly w eak, but maybe 5-/5 in the left side. 5/5 sensation. She has a stocking-glove loss, light touch, te mperature, depressed reflexes upper and lower extremities. Regarding gait, she will be ambulated wit h physical therapist with gait belt in place. Assessment: Ms. Santo is a 53-year-old patient with end-stage renal disease, on hemodialysis; diabete s mellitus; history of migraine; and some pain in the back of her head, likely tension headache movin g forward and resolved encephalopathy. She had chest pain, being evaluated by primary care physician . At this point, no evidence of ongoing confusion or focal or new changes in neurological status suc h as new deficits. She has chronic stroke and is unchanged. Plan: Continue with current regimen of medications including the folic acid, Lipitor, Coreg, Lasix. May consider aspirin 81 mg daily and Lipitor 40 mg at bedtime. She may be discharged home. Follow up with Dr. Rey's clinic within a month. NOAM Voice ID: [id number] Report ID: [id number]
[2023-08-01] MEDS: ATORVASTATIN 40 MG TAB PO SCH (21:17)
--- NOTE | 2023-08-01 21:23 | P.PN ---
Subjective Date of Service: 08/01/23 Chief Complaint: ALTERED MENTAL STATUS Subjective: Improving SHE IS BACK TO BASELINE. SHE HAS NO MORE CHEST PAIN. DISCHARGE DELAYED VQ SCAN WAS NOT DONE ON TIME. FAMILY DID NOT WANT TO TAKE HER TONIGHT. SHE WILL GO HOME IN AM. Review of Systems 10-point ROS is otherwise unremarkable General: Weakness Physical Examination - Vital Signs Temperature: 97.4 F Blood Pressure: 146/81 Pulse: 90 Respirations: 18 Pulse Ox (%): 98 - Physical Exam General: Oriented x3, Mild distress HEENT: Atraumatic, PERRLA, EOMI Neck: Supple, JVD not distended Respiratory: Clear to auscultation bilaterally, Normal air movement Cardiovascular: Regular rate/rhythm, Normal S1 S2 Gastrointestinal: Normal bowel sounds, No tenderness Musculoskeletal: No tenderness Integumentary: No rashes Neurological: Normal speech, Normal tone, Normal affect Lymphatics: No axilla or inguinal lymphadenopathy - Studies Medications List Reviewed: Yes Assessment And Plan - Current Problems (Diagnosis) (1) Uremic pericarditis Current Visit: Yes Status: Acute Plan: THIS THE MAIN ISSUE CT CHEST IS NEGATIVE CT DISSECTION CHECK D DIMER. PATIENTS WITH ESRD DO EXPERIENCE PERICARDITIS SHE BEING SLIGHTLY COGNITIVELY IMPAIRED THIS HAS CONFUSED HER SOMEWHAT. MRI BRAIN NEG. (2) Altered mental status Onset Date: 12/12/16 Current Visit: No Status: Acute Plan: ABOVE NO ORGANIC FINDING SO FAR DR PEREA IS CONSULTED. SHE HAS NO PAIN AND SO NO MORE CONFUSION. DR. PEREA AGREES WITH ASSESMENT. (3) CKD, patient preferred treatment modality in-center hemodialysis Current Visit: Yes Status: Acute
[2023-08-02 05:45] VITALS: BP 109/58; TEMP 97.7
--- NOTE | 2023-08-02 13:03 | P.DS ---
Admission Date: 07/31/23 Discharge Date: 08/02/23 Disposition: ROUTINE DISCHARGE Reason for Admission: ALTERED MENTAL STATUS - Problems (1) Uremic pericarditis Status: Acute (2) Altered mental status Onset Date: 12/12/16 Status: Acute (3) CKD, patient preferred treatment modality in-center hemodialysis Status: Acute Brief History of Present Illness: ROCAEL HAS BEEN TO HD TODAY. SHE WOKE UP SLOW AND DISORIENTED TODAY. SHE WAS BROUGHT TO ER AFTER HD. I SAW HER IN ER AT LUNCH TIME. SHE IS SLOW BUT RESPONDS WELL. SHE HAS CHEST PAIN ON RIGHT SIDE THAT IS MORE WITH BREATHING. Hospital Course: ROCAEL HAS R SIDE CHEST PAIN, VQ NEG, AND IS IS AN HD PATIENT. I SUSPECT SHE HAD PERICARDITIS FROM CKD. SHE IMPROVED AND AT THE SAME TIME HER MENTAL STATUS NORMALIZED. SHE WILL GET HD TODAY. IT IS NOT UNUSUAL FOR SOME PATIENTS TO FEEL SLOW AND CONFUSION IF THERE IS DISTURBING PAIN. Vital Signs/Physical Exam: Temp Pulse Resp BP Pulse Ox 97.7 F 89 18 109/58 L 99 08/02/23 04:00 08/02/23 04:00 08/02/23 04:00 08/02/23 04:00 08/02/23 04:00 Laboratory Data at Discharge: WBC 5.40 thou/uL (4.3-10.9) 08/01/23 04:38 Hgb 10.8 g/dL (12.0-15.0) L 08/01/23 04:38 Hct 33.1 % (36.0-45.0) L 08/01/23 04:38 Plt Count 156 thou/uL (152-406) 08/01/23 04:38 PT 11.8 SECONDS (9.5-12.5) 07/31/23 11:40 INR 1.07 07/31/23 11:40 Sodium 136 mEq/L (136-145) 08/01/23 04:38 Potassium 4.2 mEq/L (3.5-5.1) D 08/01/23 04:38 BUN 28 mg/dL (7-18) H 08/01/23 04:38 Creatinine 4.61 mg/dL (0.55-1.02) H 08/01/23 04:38 Glucose 180 mg/dL (74-106) H 08/01/23 04:38 Magnesium 2.1 mg/dL (1.6-2.4) 07/31/23 11:40 Total Bilirubin 0.3 mg/dL (0.2-1.0) 08/01/23 04:38 AST 9 U/L (15-37) L 08/01/23 04:38 ALT 18 U/L (13-56) 08/01/23 04:38 Alkaline Phosphatase 95 U/L (45-117) 08/01/23 04:38 Home Medications: Atorvastatin Calcium [Lipitor] 40 mg PO BEDTIME #30 tab 02/27/23 Folic Acid 1 mg PO DAILY #30 tab 02/27/23 Nifedipine Xl [Procardia Xl*] 30 mg PO DAILY #30 tab 02/27/23 carvediloL [Coreg*] 25 mg PO BID 6AM 6PM #60 tab 02/27/23 Furosemide 40 mg PO DAILY 07/31/23 Hydralazine [Apresoline*] 50 mg PO Q8HR 07/31/23 Insulin Glargine,Hum.rec.anlog [Lantus] 20 units SQ DAILY 07/31/23 Ondansetron [Zofran] 4 mg PO Q6H PRN 07/31/23 Sevelamer Carbonate 1 pkt PO TIDWM 07/31/23 Physician Discharge Instructions: Bedside commode and walker have been ordered on 08/01/23 from: [facility] [phone] Followup: Obie Rey MD [ASSOCIATE-ACTIVE - CAN ADMIT] - (Follow up in 1 month) Jethro Byrnes MD [Primary Care Provider] - 1-2 Weeks
== END 2023-08-02 05:23 | disposition home or self-care (01) | DRG 682 ==
LOC: ER 10:17 → ERHOLD 15:02 → 2ND 16:55
PROVIDERS: ADMIT Internal Medicine; ATTEND Internal Medicine
PROC: 5A1D70Z Performance of Urinary Filtration, Intermittent, Less than 6 Hours Per Day (ICD-10-PCS; principal; 2023-08-02)
DX: I12.0 Hypertensive chronic kidney disease with stage 5 chronic kidney disease or end stage renal disease (principal); N18.6 End stage renal disease; I32 Pericarditis in diseases classified elsewhere; G93.40 Encephalopathy, unspecified; E11.22 Type 2 diabetes mellitus with diabetic chronic kidney disease; E78.5 Hyperlipidemia, unspecified; Z88.5 Allergy status to narcotic agent; Z88.2 Allergy status to sulfonamides; Z79.4 Long term (current) use of insulin; Z99.2 Dependence on renal dialysis; Z90.49 Acquired absence of other specified parts of digestive tract; Z79.899 Other long term (current) drug therapy; Z90.711 Acquired absence of uterus with remaining cervical stump
CPT/HCPCS: 36415; 70450; 70551; 71045; 71275; 74175; 78582; 80048; 80053; 82140; 82947; 83735; 84484; 85025; 85379; 85610; 93005; 93306; 99285; A9540; A9558; Q9967

== ENCOUNTER 2023-09-16 10:49 | Emergency (ER) | payer BC, OTHER ==
--- OUTSIDE RECORDS SUMMARY | 2023-09-16 10:52 | XMS REPORT | Clinical Summary ---
Author Name Unknown Organization [facility] Address [address] [place] [address] Care Team Providers Care Stick Puller Name Role Phone Cassie Porter MD Unavailable [phone] Social History Tobacco Use Types Packs/Day Years Used Date Smoking Tobacco: Never Assessed Sex and Gender Information Value Date Recorded Sex Assigned at Not on file Gender Identity Not on file Sexual Orientation Not on file Plan of Treatment Not on file Care Teams Stick Puller Relationship Specialty Start Date End Date Cassie Porter MD [address] [place] [address] PCP - External Referring 04/29/18
[2023-09-16] MEDS ORDERED: NA CHLORIDE 0.9% 250 ML ONE (10:56)
[2023-09-16] MEDS ORDERED: ONDANSETRON 4 MG/2 ML VIAL ONE (10:57)
[2023-09-16 11:17] LABS: Absolute Eosinophils 0.1 K/uL (0-0.5); Absolute Lymphocytes (CBC) 1.8 K/uL (0.7-4.9); Absolute Monocytes 0.5 K/uL (0.1-1.3); Absolute Neutrophil 3.8 K/uL (1.8-8.0); Basophils % 0.5 % (0-1.3); Eosinophils % 1.7 % (0-4.4); Hematocrit 42.2 % (36.0-45.0); Hemoglobin 13.4 g/dL (12.0-15.0); Lymphocytes % 29.2 % (15.3-44.8); MCHC 31.8 g/dL (32.0-36.0); MCV 91.2 fL (80-100); MPV 8.8 fL (7.6-11.3); Monocytes % 8.4 % (3.3-12.3); Neutrophils % 60.2 % (41.7-73.7); Nucleated Red Blood Cells % 0.1 % (0-0); Platelets 166 thou/uL (152-406); RBC Red Blood Cell Count 4.63 M/uL (3.86-4.86); Red Cell Distribution Width 14.6 % (12.1-15.2)
[2023-09-16 11:32] LABS: Albumin 3.6 g/dL (3.4-5.0); Albumin/Globulin Ratio 0.7 (1.1-1.8); Anion Gap 9.9 mEq/L (5.0-15.0); Bilirubin Total 0.4 mg/dL (0.2-1.0); Globulin 4.9 g/dL (2.3-3.5); Potassium 3.9 mEq/L (3.5-5.1); Protein, Total 8.5 g/dL (6.4-8.2)
--- NOTE | 2023-09-16 12:14 | RAD REPORT ---
EXAM DESCRIPTION: CT - Abdomen Pelvis Wo Contrast - 09/16/2023 11:18 am CLINICAL HISTORY: vomiting COMPARISON: Abdomen Pelvis Wo Contrast dated 06/12/2023; Stone Protocol dated 02/24/2023; Stone Prot ocol dated 05/30/2022; Abdomen Pelvis W Contrast dated 06/01/2020 TECHNIQUE: Thin cut axial CT imaging of the abdomen and pelvis was performed without IV contrast. Mu ltiplanar reformats were generated and reviewed. All CT scans are performed using dose optimization technique as appropriate and may include automated exposure control or mA/KV adjustment according to patient size. FINDINGS: No suspicious findings in the lung bases. The liver, spleen, adrenal glands, and pancreas show no suspicious findings. Gallbladder was surgical ly removed. Symmetric renal contour, without suspicious parenchymal findings within limits of noncontrast techniq ue. No evidence of hydroureteronephrosis. 2 mm right superior pole nonobstructing calculus. No dilated bowel loops or bowel wall thickening. Appendix is unremarkable. No free air, free fluid or inflammatory stranding. No hernia, mass or bulky lymphadenopathy. The urinary bladder is without sig nificant finding. No suspicious bony findings. IMPRESSION: No acute intra-abdominal process. Right superior renal pelvic 2 mm nonobstructing calculus. Status post cholecystectomy.
--- NOTE | 2023-09-16 12:40 | EDPHYS ---
Physician Documentation [facility] Name: Bisi Santo Age: 53 yrs Sex: Female : 1970 Arrival Date: 09/16/2023 Time: 10:49 Bed 5 Private MD: ED Physician Dillon Jordan HPI: 09/15 10:57 This 53 yrs old Black Female presents to ER via EMS with complaints of low blood rn pressure. 10:57 Patient brought in by EMS after dialysis for low blood pressure. Patient states this rn happens often and after dialysis when she stands up her blood pressure bottoms out. Does not take medication for this. States with time gets better. Patient does report yesterday had mild abdominal discomfort associated with vomiting and did not eat or drink well yesterday. Had dialysis this morning and when she stood up had near syncopal episode. No seizure. No fall. Denies any chest pain or shortness of breath.. 10:57 Onset: The symptoms/episode began/occurred just prior to arrival. Severity of symptoms: rn At their worst the symptoms were moderate in the emergency department the symptoms have improved. The patient has experienced similar episodes in the past. 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 LMP N/A - , Not mb9 Historical: - Allergies: 10:52 Codeine; mb9 10:52 Demerol; mb9 10:52 Morphine; mb9 10:52 Sulfa (Sulfonamide Antibiotics); mb9 - Home Meds: 10:52 carvedilol 25 mg Oral tablet 1 tab once [Active]; hydralazine 25 mg Oral tablet 3 times mb9 per day [Active]; nifedipine 90 mg Oral Tablet once [Active]; sevelamer HCl 800 mg Oral tablet 3 times per day [Active]; Kerendia 10 mg Oral tab 1 tab once daily [Active]; Zofran Oral [Active]; calcitriol oral 0.125 mcg once [Active]; - PMHx: 10:52 Diabetes - IDDM; Dialysis (biopsy kidney); Hypertension; kidney disease (Hypertension); mb9 - PSHx: 10:52 biopsy kidney; mb9 - Immunization history:: Adult Immunizations up to date. - Infectious Disease History:: Denies. - Social history:: Smoking status: Patient denies any tobacco usage or history of. - Family history:: not pertinent. - Hospitalizations: : No recent hospitalization is reported. ROS: 10:57 Constitutional: Negative for fever, chills, and weight loss, Neck: Negative for injury, rn pain, and swelling, Cardiovascular: Negative for chest pain, palpitations, and edema, Respiratory: Negative for shortness of breath, cough, wheezing, and pleuritic chest pain, Abdomen/GI: Positive for abdominal discomfort and vomiting. Negative for blood in stool MS/Extremity: Negative for injury and deformity, Skin: Negative for injury, rash, and discoloration, Neuro: Negative for headache, focal weakness, numbness, tingling, and seizure, Exam: 10:57 Constitutional: This is a well developed, well nourished patient who is awake, alert, rn and in no acute distress. Head/Face: Normocephalic, atraumatic. ENT: Dry mucous membranes Cardiovascular: Regular rate and rhythm. No pulse deficits. Respiratory: No increased work of breathing, no retractions or nasal flaring. Abdomen/GI: Soft, non-tender MS/ Extremity: Pulses equal, no cyanosis. Neuro: Awake and alert, GCS 15, oriented to person, place, time, and situation. Cranial nerves II-XII grossly intact. Motor strength 4/5 in all extremities. Sensory grossly intact. 11:12 ECG was reviewed by the Attending Physician. rn Vital Signs: 10:50 BP 146 / 95; Pulse 82; Resp 16; Temp 98.4(O); Pulse Ox 100% ; Weight 74.84 kg; Height 5 mb9 ft. 4 in. ; Pain 0/10; 11:25 BP 161 / 95; Pulse 81; Resp 16; Pulse Ox 97% on R/A; mb9 12:52 BP 158 / 94; Pulse 74; Resp 18; Pulse Ox 100% on R/A; mb9 10:50 Body Mass Index 28.32 (74.84 kg, 162.56 cm) mb9 10:50 Pain Scale: Adult mb9 MDM: 10:51 Patient medically screened. 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 Data reviewed: vital signs, nurses notes, lab test result(s), EKG, radiologic studies, CT scan, and as a result, I will discharge patient. Counseling: I had a detailed discussion with the patient and/or guardian regarding the historical points, exam findings, and any diagnostic results supporting the discharge/admit diagnosis, lab results, radiology results, the need for outpatient follow up, to return to the emergency department if symptoms worsen or persist or if there are any questions or concerns that arise at home. Response to treatment: the patient's symptoms have markedly improved after treatment, and as a result, I will discharge patient. Special discussion: I discussed with the patient/guardian in detail that at this point there is no indication for admission to the hospital. It is understood, however, that if the symptoms persist or worsen the patient needs to return immediately for re-evaluation. ED course: Patient has been hypertensive entire time here, given small fluid bolus, no acute findings and CT abdomen pelvis. Likely combination of poor p.o. intake as of yesterday and dialysis today. Will discharge home with return precautions.. 09/15 10:56 Order name: CBC with Diff; Complete Time: 11:36 rn 09/15 10:56 Order name: CMP; Complete Time: 11:36 rn 09/15 10:56 Order name: Lipase; Complete Time: 11:36 rn 09/15 10:56 Order name: CT Abd/Pelvis - Without Contrast; Complete Time: 12:15 rn 09/15 10:56 Order name: IV Saline Lock; Complete Time: 11:08 rn 09/15 10:56 Order name: Labs collected and sent; Complete Time: 11:08 rn 09/15 10:56 Order name: EKG - Nurse/Tech; Complete Time: 11:08 rn EC:12 Rate is 82 beats/min. Rhythm is regular. QRS [place] is Normal. [place] interval is normal. QRS rn interval is normal. QT interval is normal. No Q waves. T waves are Normal. No ST changes noted. Clinical impression: Normal ECG. Interpreted by me. Reviewed by me. Administered Medications: 11:08 Drug: Ondansetron IVP 4 mg IVP once; over 2 minutes Route: IVP; Site: left antecubital; mb9 12:52 Follow up: Response: No adverse reaction mb9 11:08 Drug: NS 0.9% IV 250 ml IV at bolus once Route: IV; Rate: bolus; Site: left antecubital;mb9 12:52 Follow up: Response: No adverse reaction; IV Status: Completed infusion mb9 Disposition Summary: 09/16/23 12:40 Discharge Ordered Notes: Location: Home rn Problem: new rn Symptoms: have improved rn Condition: Stable rn Diagnosis - Orthostatic hypotension rn Followup: rn - With: Private Physician - When: As needed - Reason: Recheck today's complaints, Re-evaluation by your physician Discharge Instructions: - Discharge Summary Sheet rn - Orthostatic Hypotension rn Forms: - Medication Reconciliation Form rn - Thank You Letter rn - Antibiotic international exchange coordinator - Prescription Opioid Use rn - Patient Portal Instructions rn - Leadership Thank You Letter rn Signatures: Dispatcher [employer] Dillon Le MD MD rn Breneman, Mary Beth RN RN mb9
--- NOTE | 2023-09-16 12:40 | ER ---
Nurse's Notes [facility] Name: Bisi Santo Age: 53 yrs Sex: Female : 1970 Arrival Date: 09/16/2023 Time: 10:49 Bed 5 Private MD: Diagnosis: Orthostatic hypotension Presentation: 09/15 10:50 Chief complaint: EMS states: "toned out for being hypotensive, 80/50, after finishing mb9 dialysis at [facility] and standing. Pt states she's been N/V since yesterday. BGL 88.". Coronavirus screen: Vaccine status: Patient reports receiving the 2nd dose of the covid vaccine. Ebola Screen: No symptoms or risks identified at this time. Initial Sepsis Screen: Does the patient meet any 2 criteria? No. Patient's initial sepsis screen is negative. Does the patient have a suspected source of infection? No. Patient's initial sepsis screen is negative. Risk Assessment: Do you want to hurt yourself or someone else? Patient reports no desire to harm self or others. Onset of symptoms was September 16, 2023. 10:50 Method Of Arrival: EMS: [facility] mb9 10:50 Acuity: SONIA 3 mb9 Triage Assessment: 10:53 General: Appears in no apparent distress. Behavior is calm, cooperative. Pain: Denies mb9 pain. EENT: No signs and/or symptoms were reported regarding the EENT system. Neuro: Farah Agitation-Sedation Scale (RASS): 0 - Alert and Calm Level of Consciousness is awake, alert, obeys commands, Oriented to person, place, time, situation, Appropriate for age. Cardiovascular: Heart tones S1 S2 present Patient's skin is warm and dry. Respiratory: Airway is patent Respiratory effort is even, unlabored, Respiratory pattern is regular, symmetrical, Breath sounds are clear bilaterally. GI: Abdomen is round non-distended, Bowel sounds present X 4 quads. Reports nausea, vomiting. : No signs and/or symptoms were reported regarding the genitourinary system. Derm: Skin is pink, warm \\T\\ dry. Musculoskeletal: Range of motion: intact in all extremities. CONTRACTOR BROOMCORN THRESHING: 11:09 LMP N/A - , Not mb9 Historical: - Allergies: 10:52 Codeine; mb9 10:52 Demerol; mb9 10:52 Morphine; mb9 10:52 Sulfa (Sulfonamide Antibiotics); mb9 - Home Meds: 10:52 carvedilol 25 mg Oral tablet 1 tab once [Active]; hydralazine 25 mg Oral tablet 3 times mb9 per day [Active]; nifedipine 90 mg Oral Tablet once [Active]; sevelamer HCl 800 mg Oral tablet 3 times per day [Active]; Kerendia 10 mg Oral tab 1 tab once daily [Active]; Zofran Oral [Active]; calcitriol oral 0.125 mcg once [Active]; - PMHx: 10:52 Diabetes - IDDM; Dialysis (biopsy kidney); Hypertension; kidney disease (Hypertension); mb9 - PSHx: 10:52 biopsy kidney; mb9 - Immunization history:: Adult Immunizations up to date. - Infectious Disease History:: Denies. - Social history:: Smoking status: Patient denies any tobacco usage or history of. - Family history:: not pertinent. - Hospitalizations: : No recent hospitalization is reported. Screenin:54 [facility] ED Fall Risk Assessment (Adult) History of falling in the last 3 months, mb9 including since admission No falls in past 3 months (0 pts) Confusion or Disorientation No (0 pts) Intoxicated or Sedated No (0 pts) Impaired Gait Yes (1 pt) Mobility Assist Device Used Yes (1 pt) Altered Elimination No (0 pt) Score/Fall Risk Level 3 or more points = High Risk Oriented to surroundings, Maintained a safe environment, Educated pt \\T\\ family on fall prevention, incl call for assistance when getting out of bed, Assessed \\T\\ reinforced patient's understanding of fall precautions, Provided non-skid footwear, Hourly rounding (assess needs \\T\\ fall precautionary measures) done. Abuse screen: Denies threats or abuse. Nutritional screening: No deficits noted. Tuberculosis screening: No symptoms or risk factors identified. Assessment: 11:08 Reassessment: see triage assessment. mb9 12:03 Reassessment: Patient appears in no apparent distress at this time. No changes from mb9 previously documented assessment. Patient and/or family updated on plan of care and expected duration. Pain level reassessed. Patient is alert, oriented x 3, equal unlabored respirations, skin warm/dry/pink. 12:51 Reassessment: No changes from previously documented assessment. Patient and/or family mbMalik updated on plan of care and expected duration. Pain level reassessed. Patient is alert, oriented x 3, equal unlabored respirations, skin warm/dry/pink. Vital Signs: 10:50 BP 146 / 95; Pulse 82; Resp 16; Temp 98.4(O); Pulse Ox 100% ; Weight 74.84 kg; Height 5 mb9 ft. 4 in. ; Pain 0/10; 11:25 BP 161 / 95; Pulse 81; Resp 16; Pulse Ox 97% on R/A; mb9 12:52 BP 158 / 94; Pulse 74; Resp 18; Pulse Ox 100% on R/A; mb9 10:50 Body Mass Index 28.32 (74.84 kg, 162.56 cm) mb9 10:50 Pain Scale: Adult mb9 ED Course: 10:50 Patient arrived in ED. mb9 10:50 Arm band placed on. mb9 10:51 Dillon Jordan MD is Attending Physician. rn 10:52 Triage completed. mb9 10:54 Placed in gown. Bed in low position. Call light in reach. Side rails up X 1. Provided mb9 Education on: press call light if needing anything. Client placed on continuous cardiac and pulse oximetry monitoring. NIBP monitoring applied. site monitor on. Door closed. Noise minimized. Warm blanket given. 10:56 Saniya Nash, RN is Primary Nurse. mb9 11:08 CBC with Diff Sent. mb9 11:08 CMP Sent. mb9 11:08 Lipase Sent. mb9 11:08 Initial lab(s) drawn, by pa, sent to lab. EKG done, by ED staff, reviewed by Dillon Jordan MD. Inserted saline lock: 24 gauge in left antecubital area, using aseptic technique. Blood collected. 11:09 No provider procedures requiring assistance completed. mb9 11:20 CT Abd/Pelvis - Without Contrast In Process Unspecified. EDMS 12:52 IV discontinued, intact, bleeding controlled, No redness/swelling at site. Pressure mb9 dressing applied. Administered Medications: 11:08 Drug: Ondansetron IVP 4 mg IVP once; over 2 minutes Route: IVP; Site: left antecubital; mb9 12:52 Follow up: Response: No adverse reaction mb9 11:08 Drug: NS 0.9% IV 250 ml IV at bolus once Route: IV; Rate: bolus; Site: left antecubital;mb9 12:52 Follow up: Response: No adverse reaction; IV Status: Completed infusion mb9 Medication: 10:55 VIS not applicable for this client. mb9 Outcome: 12:40 Discharge ordered by . rn 12:52 Discharged to home via wheelchair, with family, mb9 12:52 Condition: stable 12:52 Discharge instructions given to patient, Instructed on discharge instructions, follow up and referral plans. Demonstrated understanding of instructions, follow-up care, 12:52 Patient left the ED. mb9 Signatures: Dispatcher [employer] EDDillon Davis MD MD rn Breneman, Mary Beth, RN RN mb9 Corrections: (The following items were deleted from the chart) 10:52 10:50 Acuity: SONIA 2 mb9 9 10:57 10:50 Chief complaint: EMS states: "toned out for being hypotensive, 80/50, after mb9 finishing dialysis at [facility]. Pt states she's been N/V since yesterday. BGL 88." mb9
[2023-09-16 13:17] VITALS: BP 158/94; TEMP 98.4; O2SAT 100
== END 2023-09-16 12:52 | disposition home or self-care (01) ==
LOC: ER 10:49
DX: I95.1 Orthostatic hypotension (principal); E11.22 Type 2 diabetes mellitus with diabetic chronic kidney disease; N18.6 End stage renal disease; Z99.2 Dependence on renal dialysis; Z88.2 Allergy status to sulfonamides; Z88.5 Allergy status to narcotic agent
CPT/HCPCS: 36415; 74176; 80053; 83690; 85025; 93005; 96365; 96366; 96375; 99285; J2405; J7050

== ENCOUNTER 2023-10-23 09:57 | Emergency (ER) | payer OTHER ==
--- OUTSIDE RECORDS SUMMARY | 2023-10-23 10:00 | XMS REPORT | Clinical Summary ---
Author Name Unknown Organization [facility] Address [address] [place] [address] Care Team Providers Care Cracker And Cookie Machine Operator Name Role Phone Cassie Porter MD Unavailable [phone] Social History Tobacco Use Types Packs/Day Years Used Date Smoking Tobacco: Never Assessed Sex and Gender Information Value Date Recorded Sex Assigned at Not on file Gender Identity Not on file Sexual Orientation Not on file Plan of Treatment Not on file Care Teams Cracker And Cookie Machine Operator Relationship Specialty Start Date End Date Cassie Porter MD [address] [place] [address] PCP - External Referring 04/29/18
[2023-10-23] MEDS ORDERED: LEVETIRACETAM 500 MG/5 ML VIAL IV ONE (10:12)
[2023-10-23] MEDS ORDERED: NA CHLORIDE 0.9% 250 ML ONE (10:12)
[2023-10-23 10:22] LABS: Absolute Eosinophils 0.2 K/uL (0-0.5); Absolute Lymphocytes (CBC) 1.7 K/uL (0.7-4.9); Absolute Monocytes 0.3 K/uL (0.1-1.3); Absolute Neutrophil 2.2 K/uL (1.8-8.0); Basophils % 0.8 % (0-1.3); Eosinophils % 3.8 % (0-4.4); Hematocrit 42.8 % (36.0-45.0); Hemoglobin 13.8 g/dL (12.0-15.0); Lymphocytes % 38.6 % (15.3-44.8); MCH 29.2 pg (27.0-35.0); MCHC 32.2 g/dL (32.0-36.0); MCV 90.6 fL (80-100); MPV 8.4 fL (7.6-11.3); Monocytes % 5.9 % (3.3-12.3); Neutrophils % 50.9 % (41.7-73.7); Nucleated Red Blood Cells % 0.3 % (0-0); Platelets 145 thou/uL (152-406); RBC Red Blood Cell Count 4.73 M/uL (3.86-4.86); Red Cell Distribution Width 15.8 % (12.1-15.2)
--- NOTE | 2023-10-23 10:33 | RAD REPORT ---
EXAM DESCRIPTION: RAD - Chest Single View - 10/23/2023 10:26 am CLINICAL HISTORY: AMS Chest pain. COMPARISON: Chest Single View dated 07/31/2023; Chest Single View dated 07/05/2023; Chest Single View da amina 06/12/2023; Chest Single View dated 03/22/2023 FINDINGS: Portable technique limits examination quality. Mild pulmonary edema. The heart is mildly enlarged in size. Right-sided venous catheter tip in SVC. IMPRESSION: Mild CHF versus volume overload pattern.
--- NOTE | 2023-10-23 10:34 | RAD REPORT ---
EXAM DESCRIPTION: CT - Head Brain Wo Cont - 10/23/2023 10:24 am CLINICAL HISTORY: AMS, possible seizure Headache, drowsiness, possible seizure COMPARISON: Head Brain Wo Cont dated 07/31/2023; Head Brain Wo Cont dated 02/20/2023 TECHNIQUE: All CT scans are performed using dose optimization technique as appropriate and may inclu de automated exposure control or mA/KV adjustment according to patient size. FINDINGS: No intracranial hemorrhage, hydrocephalus or extra-axial fluid collection.Small area of di minished density adjacent to the left caudate head is chronic.No areas of brain edema or evidence of midline shift. The paranasal sinuses and mastoids are clear. The calvarium is intact. IMPRESSION: No acute intracranial abnormality.
--- NOTE | 2023-10-23 12:05 | RAD REPORT ---
EXAM DESCRIPTION: MRI - Brain Wo Cont - 10/23/2023 11:52 am CLINICAL HISTORY: AMS, possible CVA vs seizure Headache, drowsiness, CVA symptomology COMPARISON: Head Brain Wo Cont dated 10/23/2023 TECHNIQUE: Multi-sequence, multiplanar MR imaging of the brain was performed without contrast. FINDINGS: No intracranial hemorrhage, hydrocephalus or extra-axial fluid collections. No edema or sh ift of midline structures. No findings to suspect brain mass. DWI is negative for acute CVA. Midline structures are normally formed. Mild mucosal thickening involves both maxillary antra. IMPRESSION: Negative for acute CVA or other acute intracranial process.
--- NOTE | 2023-10-23 13:31 | ER ---
Nurse's Notes [facility] Name: Bisi Santo Age: 53 yrs Sex: Female : 1970 Arrival Date: 10/23/2023 Time: 09:57 Bed 7 Private MD: Diagnosis: Other seizures;Altered mental status, unspecified Presentation: 10/22 09:58 Chief complaint: EMS states: "toned out for not responding while at Dialysis and looked mb9 like absent seizure. Pt states this has been happening on and off at home and Dialysis for months. Pt recently started Keppra.". Coronavirus screen: Vaccine status: Patient reports receiving the 2nd dose of the covid vaccine. Ebola Screen: No symptoms or risks identified at this time. Initial Sepsis Screen: Does the patient meet any 2 criteria? No. Patient's initial sepsis screen is negative. Does the patient have a suspected source of infection? No. Patient's initial sepsis screen is negative. Risk Assessment: Do you want to hurt yourself or someone else? Patient reports no desire to harm self or others. Onset of symptoms was October 23, 2023. 09:58 Method Of Arrival: EMS: [facility] mb9 09:58 Acuity: SONIA 2 mb9 Triage Assessment: 10:02 General: Appears in no apparent distress. Behavior is cooperative. Pain: Denies pain. mb9 EENT: No signs and/or symptoms were reported regarding the EENT system. Neuro: Level of Consciousness is obeys commands, confused, Oriented to none. Cardiovascular: Patient's skin is warm and dry. Respiratory: Airway is patent Respiratory effort is even, unlabored, Respiratory pattern is regular, symmetrical. GI: No signs and/or symptoms were reported involving the gastrointestinal system. : No signs and/or symptoms were reported regarding the genitourinary system. Derm: Skin is pink, warm \\T\\ dry. Musculoskeletal: Range of motion: intact in all extremities. 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 ATTENDANT: 11:21 LMP N/A - , Not mb9 Historical: - Allergies: 10:01 Codeine; mb9 10:01 Demerol; mb9 10:01 Morphine; mb9 10:01 Sulfa (Sulfonamide Antibiotics); mb9 - Home Meds: 10:01 calcitriol oral 0.125 mcg once [Active]; carvedilol 25 mg Oral tablet 1 tab once mb9 [Active]; hydralazine 25 mg Oral tablet 3 times per day [Active]; Kerendia 10 mg Oral tab 1 tab once daily [Active]; nifedipine 90 mg Oral tablet once [Active]; sevelamer HCl 800 mg Oral tablet 3 times per day [Active]; Zofran Oral [Active]; - PMHx: 10:01 Diabetes - IDDM; Dialysis (biopsy kidney); Hypertension; kidney disease (Hypertension); mb9 - PSHx: 10:01 biopsy kidney; mb9 - Immunization history:: Adult Immunizations up to date. - Infectious Disease History:: Denies. - Social history:: Smoking status: Patient denies any tobacco usage or history of. - Family history:: not pertinent. - Hospitalizations: : No recent hospitalization is reported. - History obtained from: EMS. Screenin:12 [facility] ED Fall Risk Assessment (Adult) History of falling in the last 3 months, mb9 including since admission No falls in past 3 months (0 pts) Confusion or Disorientation Yes (5 pts) Intoxicated or Sedated No (0 pts) Impaired Gait Yes (1 pt) Mobility Assist Device Used No (0 pt) Altered Elimination No (0 pt) Score/Fall Risk Level 3 or more points = High Risk Oriented to surroundings, Maintained a safe environment, Educated pt \\T\\ family on fall prevention, incl call for assistance when getting out of bed, Assessed \\T\\ reinforced patient's understanding of fall precautions. Abuse screen: Denies threats or abuse. Nutritional screening: No deficits noted. Tuberculosis screening: No symptoms or risk factors identified. Assessment: 10:13 Reassessment: see triage assessment. mb9 11:20 Reassessment: pt attempting to climb out of bed. Verbal reassurance given. Pt mb9 repositioned. 12:26 Reassessment: Patient appears in no apparent distress at this time. No changes from mb9 previously documented assessment. 13:14 Reassessment: No changes from previously documented assessment. Patient and/or family mb9 updated on plan of care and expected duration. Pain level reassessed. Patient is alert, oriented x 3, equal unlabored respirations, skin warm/dry/pink. 13:15 Reassessment: Called lab to see results of blood work. Nella states, "We spoke to a kana Arredondo in the ER about a recollect of the recollect.". 13:23 Reassessment: pt refused blood work and states, "I want to go home." Family at bedside. mb9 Vital Signs: 09:58 Weight 79.38 kg; Height 5 ft. 5 in. ; mb9 10:12 BP 150 / 80; Pulse 68; Resp 18; Temp 98; Pulse Ox 100% on R/A; mb9 12:32 BP 177 / 98; Pulse 75; Resp 18; Pulse Ox 100% on R/A; mb9 09:58 Body Mass Index 29.12 (79.38 kg, 165.1 cm) mb9 ED Course: 09:58 Patient arrived in ED. iw 09:58 Arm band placed on. mb9 09:59 Dillon Jordan MD is Attending Physician. rn 10:00 Triage completed. mb9 10:12 Placed in gown. Bed in low position. Call light in reach. Side rails up X 1. Provided mb9 Education on: press call light if needing anything. Client placed on continuous cardiac and pulse oximetry monitoring. NIBP monitoring applied. monitor and storage bin tender on. Door closed. Noise minimized. Warm blanket given. Pillow given. 10:12 EKG done, by ED staff, reviewed by Dillon Jordan MD. mb9 10:13 Saniya Nash, RN is Primary Nurse. mb9 10:13 No provider procedures requiring assistance completed. mb9 10:15 Initial lab(s) drawn, by ED staff, sent to lab. Inserted saline lock: 22 gauge in right mb9 antecubital area, using aseptic technique. ,using aseptic technique. done by [facility] Blood collected. 10:26 CT Head Brain wo Cont In Process Unspecified. EDMS 10:28 Chest Single View XRAY In Process Unspecified. EDMS 11:38 Brain Wo Cont MRI In Process Unspecified. EDMS 13:30 Obie Rey MD is Referral Physician. rn 13:41 IV discontinued, intact, bleeding controlled, No redness/swelling at site. ld1 Administered Medications: 10:15 Drug: Keppra IV 1000 mg IV at calculated rate once Route: IV; Rate: calculated rate; mb9 Site: right antecubital; 12:28 Follow up: Response: No adverse reaction; IV Status: Completed infusion mb9 Medication: 10:13 VIS not applicable for this client. mb9 Outcome: 13:30 Discharge ordered by . rn 13:41 Discharged to home via wheelchair, with family, ld1 13:41 Condition: stable 13:41 Discharge instructions given to patient, family, Instructed on discharge instructions, follow up and referral plans. Demonstrated understanding of instructions, follow-up care, 13:41 Patient left the ED. ld1 Signatures: Dispatcher [employer] EDJoan Morgan RN RN iw Nieto, Roman, MD MD rn Sims, Lauren, RN RN ld1 Saniya Nash RN RN mb9
--- NOTE | 2023-10-23 13:31 | EDPHYS ---
Physician Documentation [facility] Name: Bisi Santo Age: 53 yrs Sex: Female : 1970 Arrival Date: 10/23/2023 Time: 09:57 Bed 7 Private MD: ED Physician Dillon Jordan HPI: 10/22 11:13 This 53 yrs old Black Female presents to ER via EMS with complaints of Altered Mental rn Status. 11:13 The patient presents with decreased responsiveness. Onset: The symptoms/episode rn began/occurred at an unknown time. Possible causes: unknown. Current symptoms: In the emergency department the patient's symptoms are unchanged from the initial presentation. The patient has experienced similar episodes in the past. Per EMS was called out from dialysis for altered mental status, possible seizure. They reported episode where patient had blank stare and started mumbling her words. Per report this has been happening for some time, recently started on Keppra for possible seizures. No syncope, patient was never unresponsive.. 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: 11:21 LMP N/A - , Not mb9 Historical: - Allergies: 10:01 Codeine; mb9 10:01 Demerol; mb9 10:01 Morphine; mb9 10:01 Sulfa (Sulfonamide Antibiotics); mb9 - Home Meds: 10:01 calcitriol oral 0.125 mcg once [Active]; carvedilol 25 mg Oral tablet 1 tab once mb9 [Active]; hydralazine 25 mg Oral tablet 3 times per day [Active]; Kerendia 10 mg Oral tab 1 tab once daily [Active]; nifedipine 90 mg Oral tablet once [Active]; sevelamer HCl 800 mg Oral tablet 3 times per day [Active]; Zofran Oral [Active]; - PMHx: 10:01 Diabetes - IDDM; Dialysis (biopsy kidney); Hypertension; kidney disease (Hypertension); mb9 - PSHx: 10:01 biopsy kidney; mb9 - Immunization history:: Adult Immunizations up to date. - Infectious Disease History:: Denies. - Social history:: Smoking status: Patient denies any tobacco usage or history of. - Family history:: not pertinent. - Hospitalizations: : No recent hospitalization is reported. - History obtained from: EMS. ROS: 11:13 Unable to obtain ROS due to altered mental status, rn Exam: 11:13 Constitutional: Awake, follows commands, exhibits generalized weakness and difficult rn to understand speech Head/Face: Normocephalic, atraumatic. Eyes: Pupils equal round and reactive to light, extra-ocular motions intact. Cardiovascular: Regular rate and rhythm. No pulse deficits. Respiratory: No increased work of breathing, no retractions or nasal flaring. Abdomen/GI: Soft, non-tender MS/ Extremity: Pulses equal, no cyanosis. Neuro: Awake, follows all commands, mumbling speech. Moves all 4 extremities with 4 out of 5 strength. 11:23 ECG was reviewed by the Attending Physician. rn Vital Signs: 09:58 Weight 79.38 kg; Height 5 ft. 5 in. ; mb9 10:12 BP 150 / 80; Pulse 68; Resp 18; Temp 98; Pulse Ox 100% on R/A; mb9 12:32 BP 177 / 98; Pulse 75; Resp 18; Pulse Ox 100% on R/A; mb9 09:58 Body Mass Index 29.12 (79.38 kg, 165.1 cm) mb9 MDM: 09:59 Patient medically screened. rn 13:29 Differential Diagnosis: CVA, electrolyte abnormality, hypoglycemia, intracranial bleed. rn Data reviewed: vital signs, nurses notes, lab test result(s), radiologic studies, CT scan, MRI, and as a result, I will discharge patient. Counseling: I had a detailed discussion with the patient and/or guardian regarding the historical points, exam findings, and any diagnostic results supporting the discharge/admit diagnosis, lab results, radiology results, the need for outpatient follow up, to return to the emergency department if symptoms worsen or persist or if there are any questions or concerns that arise at home. Special discussion: I discussed with the patient/guardian in detail that at this point there is no indication for admission to the hospital. It is understood, however, that if the symptoms persist or worsen the patient needs to return immediately for re-evaluation. ED course: No acute findings and CT imaging of the head nor MRI brain. Basic metabolic panel still pending due to to recollect request from lab. Patient not willing to stay for recollection of blood. Patient understands risks of going home without testing especially given dialysis state. Patient wants to go home and is tired of being here. Patient's family member is here and agrees with patient and comfortable taking her home.. 10/22 09:59 Order name: CBC with Diff; Complete Time: 12:21 rn 10/22 10:17 Order name: Glucose, Ancillary Testing; Complete Time: 12:21 EDMS 10/22 09:59 Order name: CT Head Brain wo Cont; Complete Time: 12:21 rn 10/22 09:59 Order name: Chest Single View XRAY; Complete Time: 12:21 rn 10/22 10:03 Order name: Brain Wo Cont MRI; Complete Time: 12:21 rn 10/22 09:59 Order name: EKG; Complete Time: 10:00 rn 10/22 09:59 Order name: Cardiac monitoring; Complete Time: 10:11 rn 10/22 09:59 Order name: EKG - Nurse/Tech; Complete Time: 10:10 rn 10/22 09:59 Order name: IV Saline Lock; Complete Time: 10:15 rn 10/22 09:59 Order name: Labs collected and sent; Complete Time: 10:15 rn 10/22 09:59 Order name: NPO; Complete Time: 10:10 rn 10/22 09:59 Order name: O2 Per Protocol; Complete Time: 10:10 rn 10/22 09:59 Order name: O2 Sat Monitoring; Complete Time: 10:10 rn 10/22 10:01 Order name: Glucose Level; Complete Time: 10:12 rn 10/22 10:26 Order name: Labs - recollect needed: GREEN AND BLUE; Complete Time: 10:42 bc6 EC:23 Rate is 78 beats/min. Rhythm is regular. QRS [place] is Normal. [place] interval is normal. QRS rn interval is normal. QT interval is normal. No Q waves. T waves are Normal. No ST changes noted. Clinical impression: Normal ECG. Interpreted by me. Reviewed by me. Administered Medications: 10:15 Drug: Keppra IV 1000 mg IV at calculated rate once Route: IV; Rate: calculated rate; mb9 Site: right antecubital; 12:28 Follow up: Response: No adverse reaction; IV Status: Completed infusion mb9 Disposition Summary: 10/23/23 13:30 Discharge Ordered Notes: Location: Home rn Problem: an ongoing problem rn Symptoms: have improved rn Condition: Stable rn Diagnosis - Other seizures rn - Altered mental status, unspecified rn Followup: rn - With: Obie Rey MD - When: As needed - Reason: Recheck today's complaints, Re-evaluation by your physician Discharge Instructions: - Discharge Summary Sheet rn - Confusion rn - Seizure, Adult rn Forms: - Medication Reconciliation Form rn - 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 EDMS EDMS 10:00 10:00 CBC+H.LAB.BRZ ordered. EDMS EDMS 10:00 10:00 HEPATIC FUNCTION+C.LAB.BRZ ordered. EDMS EDMS 10:00 10:00 MAGNESIUM+C.LAB.BRZ ordered. EDMS EDMS 10:00 10:00 PROTIME (+INR)+COAG.LAB.BRZ ordered. EDMS EDMS 10:00 10:00 PTT, ACTIVATED+COAG.LAB.BRZ ordered. EDMS EDMS 10:00 10:00 Troponin High Sensitivity+C.LAB.BRZ ordered. EDMS EDMS 13:31 13:19 Labs - recollect needed ordered. 6 mb9
[2023-10-23 13:50] VITALS: BP 177/98; TEMP 98; O2SAT 100
--- NOTE | 2023-10-25 16:58 | EKG ---
Test Date: 2023-10-23 Test Time: 10:10:04 Facility Security Officer: MB MEASUREMENT RESULTS: Intervals: Rate: 78 DE: 150 QRSD: 94 QT: 398 QTc: 453 [place]: P: 57 DE: 150 QRS: 8 T: 16 INTERPRETIVE STATEMENTS: Normal sinus rhythm Normal ECG Compared to ECG 09/16/2023 11:06:04 No significant changes Electronically Signed On 10-25-23 16:50:39 CDT by Isaiah Hogan
== END 2023-10-23 13:41 | disposition home or self-care (01) ==
LOC: ER 09:57
DX: G40.89 Other seizures (principal); R41.82 Altered mental status, unspecified; I10 Essential (primary) hypertension; E11.9 Type 2 diabetes mellitus without complications; Z79.899 Other long term (current) drug therapy; Z88.2 Allergy status to sulfonamides; Z88.5 Allergy status to narcotic agent
CPT/HCPCS: 96365; 93005; 85025; 36415; 82947; 70450; 71045; 70551; 99285; 96366; J1953; J7050

== ENCOUNTER 2023-10-25 11:29 | Emergency (ER) | payer OTHER ==
--- OUTSIDE RECORDS SUMMARY | 2023-10-25 11:32 | XMS REPORT | Clinical Summary ---
Author Name Unknown Organization [facility] Address [address] [place] [address] Care Team Providers Care Pneumatic Drum Sander Name Role Phone Cassie Porter MD Unavailable [phone] Social History Tobacco Use Types Packs/Day Years Used Date Smoking Tobacco: Never Assessed Sex and Gender Information Value Date Recorded Sex Assigned at Not on file Gender Identity Not on file Sexual Orientation Not on file Plan of Treatment Not on file Care Teams Pneumatic Drum Sander Relationship Specialty Start Date End Date Cassie Porter MD [address] [place] [address] PCP - External Referring 04/29/18
[2023-10-25] MEDS ORDERED: LORazepam 2 MG/ML VIAL ONE (11:37)
[2023-10-25] MEDS ORDERED: LEVETIRACETAM 500 MG/5 ML VIAL IV ONE (12:02)
[2023-10-25] MEDS ORDERED: NA CHLORIDE 0.9% 100 ML ONE (12:02)
[2023-10-25 12:07] LABS: Absolute Eosinophils 0.1 K/uL (0-0.5); Absolute Monocytes 0.4 K/uL (0.1-1.3); Absolute Neutrophil 2.8 K/uL (1.8-8.0); Basophils % 0.6 % (0-1.3); Eosinophils % 2.6 % (0-4.4); Hematocrit 42.4 % (36.0-45.0); Hemoglobin 13.7 g/dL (12.0-15.0); Lymphocytes % 36.8 % (15.3-44.8); MCH 29.1 pg (27.0-35.0); MCHC 32.2 g/dL (32.0-36.0); MCV 90.5 fL (80-100); MPV 8.6 fL (7.6-11.3); Monocytes % 7.9 % (3.3-12.3); Neutrophils % 52.1 % (41.7-73.7); Platelets 151 thou/uL (152-406); RBC Red Blood Cell Count 4.69 M/uL (3.86-4.86); Red Cell Distribution Width 15.8 % (12.1-15.2)
--- NOTE | 2023-10-25 12:20 | ER ---
Nurse's Notes [facility] Name: Bisi Santo Age: 53 yrs Sex: Female : 1970 Arrival Date: 10/25/2023 Time: 11:29 Bed 20 Private MD: Diagnosis: Dependence on renal dialysis;Epileptic seizures related to external causes, not intractable, without status epilepticus Presentation: 10/24 11:30 Chief complaint: EMS states: FROM DIALYSIS ONGOING SEIZURE ACTIVITY AT DIALYSIS DIRECT db ADMIT TO [facility] BUT DIALYSIS DID NOT HAVE TRANSPORT TO FACILITY FOR PT. PT IS ALTERED NOT FOLLOWING COMMANDS. Coronavirus screen: Client denies travel out of the [place] in the last 14 days. At this time, the client does not indicate any symptoms associated with coronavirus-19. Ebola Screen: Patient negative for fever greater than or equal to 101.5 degrees Fahrenheit, and additional compatible Ebola Virus Disease symptoms Patient denies exposure to infectious person. Patient denies travel to an Ebola-affected area in the 21 days before illness onset. No symptoms or risks identified at this time. Initial Sepsis Screen: Does the patient meet any 2 criteria? No. Patient's initial sepsis screen is negative. Does the patient have a suspected source of infection? No. Patient's initial sepsis screen is negative. Risk Assessment: Do you want to hurt yourself or someone else? Patient reports no desire to harm self or others. Onset of symptoms was October 25, 2023. Care prior to arrival: Glucose check: 120. 11:30 Method Of Arrival: EMS: [facility] db 11:30 Acuity: SONIA 2 db Triage Assessment: 11:44 General: Appears uncomfortable, Behavior is anxious. Pain: Unable to use pain scale. db Patient is disoriented. Historical: - Allergies: 11:44 Codeine; db 11:44 Demerol; db 11:44 Morphine; db 11:44 Sulfa (Sulfonamide Antibiotics); db - PMHx: 11:44 Diabetes - IDDM; Dialysis (biopsy kidney); Hypertension; kidney disease (Hypertension); db - PSHx: 11:44 biopsy kidney; db - Immunization history:: Adult Immunizations unknown. - Infectious Disease History:: Denies. - Social history:: Smoking status: Patient denies any tobacco usage or history of. - Family history:: not pertinent. Screenin:30 [facility] ED Fall Risk Assessment (Adult) History of falling in the last 3 months, kc6 including since admission No falls in past 3 months (0 pts) Confusion or Disorientation Yes (5 pts) Intoxicated or Sedated No (0 pts) Impaired Gait No (0 pts) Mobility Assist Device Used No (0 pt) Altered Elimination No (0 pt) Score/Fall Risk Level 0 - 2 = Low Risk. Abuse screen: Denies threats or abuse. Denies injuries from another. Nutritional screening: No deficits noted. Tuberculosis screening: No symptoms or risk factors identified. Assessment: 11:15 General: Appears in no apparent distress. comfortable, well groomed, well developed, kc6 Behavior is cooperative. Pain: Denies pain. Neuro: Level of Consciousness is awake, alert, confused, Oriented to person, place, Appropriate for age. Cardiovascular: Capillary refill < 3 seconds Dialysis shunt: in the anterior aspect of right upper chest, with no erythema, with no edema, no bleeding noted. Respiratory: Airway is patent Trachea midline Respiratory effort is even, unlabored, Respiratory pattern is regular, symmetrical. GI: No signs and/or symptoms were reported involving the gastrointestinal system. : No signs and/or symptoms were reported regarding the genitourinary system. EENT: No signs and/or symptoms were reported regarding the EENT system. Derm: Skin is intact, is healthy with good turgor, Skin is clammy, Skin is normal, Skin temperature is warm. Musculoskeletal: No signs and/or symptoms reported regarding the musculoskeletal system. Circulation, motion, and sensation intact. Capillary refill < 3 seconds, Range of motion: intact in all extremities. 12:15 Reassessment: Patient appears in no apparent distress at this time. No changes from kc6 previously documented assessment. Patient and/or family updated on plan of care and expected duration. Pain level reassessed. Patient is alert, oriented x 3, equal unlabored respirations, skin warm/dry/pink. Vital Signs: 11:30 BP 173 / 102; Pulse 82; Resp 18; Temp 98.4; Pulse Ox 100% ; Weight 74.84 kg; db ED Course: 11:30 Client placed on continuous cardiac and pulse oximetry monitoring. NIBP monitoring kc6 applied. property assessment monitor on. Warm blanket given. Pillow given. 11:30 Patient has correct armband on for positive identification. Placed in gown. Bed in low kc6 position. Call light in reach. Side rails up X2. Adult w/ patient. Seizure precautions initiated. 11:30 Arm band placed on. kc6 11:31 Patient arrived in ED. charlene 11:31 Hari De La Garza MD is Attending Physician. charlene 11:35 Rosamaria Henry, RN is Primary Nurse. kc6 11:43 Triage completed. db 12:09 CT Head Brain wo Cont In Process Unspecified. EDMS 12:12 administrative approval given by Maria Teresa Sandhu Rn/ patient has been accepted to [facility] room B426/ Dr. Roslyn Dooley has accepted the patient in transfer. report to be called to the transfer center at [phone]. 12:45 Chest Single View In Process Unspecified. EDMS Administered Medications: 12:01 Drug: Ativan IVP 1 mg IVP once Route: IVP; Site: right antecubital; kc6 12:23 Drug: Keppra IV 1000 mg IV at per protocol once Route: IV; Rate: per protocol; Site: kc6 right antecubital; 13:31 Drug: hydrALAZINE IVP 20 mg IVP once Route: IVP; Site: right antecubital; iw Outcome: 12:20 ER care complete, transfer ordered by . charlene 13:31 Patient left the ED. iw Signatures: Dispatcher [employer] EDMS Hari De La Garza MD MD cha Williams, Irene, RN RN iw Brittney Barros Kaitlyn, ISAIAH RN [facility] Monica Chavez RN RN db Corrections: (The following items were deleted from the chart) 12:27 11:00 Patient has correct armband on for positive identification. Placed in gown. Bed kc6 in low position. Call light in reach. Side rails up X2. Adult w/ patient. Seizure precautions initiated. kc6 12:27 11:00 Client placed on continuous cardiac and pulse oximetry monitoring. NIBP kc6 monitoring applied. property assessment monitor on. kc6 12:27 11:00 Warm blanket given. Pillow given. kc6 kc6
--- NOTE | 2023-10-25 12:20 | EDPHYS ---
Physician Documentation [facility] Name: Bisi Santo Age: 53 yrs Sex: Female : 1970 Arrival Date: 10/25/2023 Time: 11:29 Bed 20 Private MD: ED Physician Hari De La Garza HPI: 10/24 12:14 This 53 yrs old Black Female presents to ER via EMS with complaints of Altered Mental charlene Status, Probable Seizure. 12:14 The patient presents with confusion, trouble concentrating. Onset: The symptoms/episode chralene began/occurred this morning, today. Possible causes: seizure. Possible causes: CVA or TIA, head injury, low blood sugar. Associated signs and symptoms: Pertinent positives: seizure. Current symptoms: In the emergency department the patient's symptoms have improved, mildly, is more alert. Patient's baseline: Neuro: alert and fully oriented. The patient has experienced similar episodes in the past, multiple times. Historical: - Allergies: 11:44 Codeine; db 11:44 Demerol; db 11:44 Morphine; db 11:44 Sulfa (Sulfonamide Antibiotics); db - PMHx: 11:44 Diabetes - IDDM; Dialysis (biopsy kidney); Hypertension; kidney disease (Hypertension); db - PSHx: 11:44 biopsy kidney; db - Immunization history:: Adult Immunizations unknown. - Infectious Disease History:: Denies. - Social history:: Smoking status: Patient denies any tobacco usage or history of. - Family history:: not pertinent. ROS: 12:14 Constitutional: Negative for fever, chills, and weight loss, Eyes: Negative for injury, charlene pain, redness, and discharge, ENT: Negative for injury, pain, and discharge, Neck: Negative for injury, pain, and swelling, Cardiovascular: Negative for chest pain, palpitations, and edema, Respiratory: Negative for shortness of breath, cough, wheezing, and pleuritic chest pain, Abdomen/GI: Negative for abdominal pain, nausea, vomiting, diarrhea, and constipation, Back: Negative for injury and pain, : Negative for injury, bleeding, discharge, and swelling, MS/Extremity: Negative for injury and deformity, Skin: Negative for injury, rash, and discoloration, Allergy/Immunology: Negative for hives, rash, and allergies, Endocrine: Negative for neck swelling, polydipsia, polyuria, polyphagia, and marked weight changes, Hematologic/Lymphatic: Negative for swollen nodes, abnormal bleeding, and unusual bruising, 12:14 Neuro: Positive for altered mental status, seizure activity, Exam: 12:14 Constitutional: This is a well developed, well nourished patient who is awake, alert, charlene and in no acute distress. Head/Face: Normocephalic, atraumatic. Eyes: Pupils equal round and reactive to light, extra-ocular motions intact. Lids and lashes normal. Conjunctiva and sclera are non-icteric and not injected. Cornea within normal limits. Periorbital areas with no swelling, redness, or edema. ENT: Nares patent. No nasal discharge, no septal abnormalities noted. Tympanic membranes are normal and external auditory canals are clear. Oropharynx with no redness, swelling, or masses, exudates, or evidence of obstruction, uvula midline. Mucous membranes moist. Neck: Trachea midline, no thyromegaly or masses palpated, and no cervical lymphadenopathy. Supple, full range of motion without nuchal rigidity, or vertebral point tenderness. No Meningismus. Chest/axilla: Normal chest wall appearance and motion. Nontender with no deformity. No lesions are appreciated. Cardiovascular: Regular rate and rhythm with a normal S1 and S2. No gallops, murmurs, or rubs. Normal PMI, no JVD. No pulse deficits. Respiratory: Lungs have equal breath sounds bilaterally, clear to auscultation and percussion. No rales, rhonchi or wheezes noted. No increased work of breathing, no retractions or nasal flaring. Abdomen/GI: Soft, non-tender, with normal bowel sounds. No distension or tympany. No guarding or rebound. No evidence of tenderness throughout. Back: No spinal tenderness. No costovertebral tenderness. Full range of motion. Female : Normal external genitalia. Skin: Warm, dry with normal turgor. Normal color with no rashes, no lesions, and no evidence of cellulitis. MS/ Extremity: Pulses equal, no cyanosis. Neurovascular intact. Full, normal range of motion. Psych: Awake, alert, with orientation to person, place and time. Behavior, mood, and affect are within normal limits. 12:14 Neuro: Orientation: no acute changes, Mentation: confused, Memory: unable to test, Cranial nerves: no acute changes, Cerebellar function: unable to test, Motor: Sensation: no obvious gross deficits, unable to test, Gait: not tested. seizure activity, focal in nature is displayed by patient, 12:46 ECG was reviewed by the Attending Physician. [facility] Vital Signs: 11:30 BP 173 / 102; Pulse 82; Resp 18; Temp 98.4; Pulse Ox 100% ; Weight 74.84 kg; db MDM: 11:31 Patient medically screened. [facility] 11:34 Patient medically screened. [facility] 12:44 Differential Diagnosis: CVA, electrolyte abnormality, hypoglycemia, intracranial bleed, charlene pneumonia, seizure, sepsis, TIA, volume depletion. Data reviewed: vital signs, nurses notes, lab test result(s), EKG, radiologic studies, CT scan, plain films. Consideration of Admission/Observation Escalation of care including admission/observation considered. I considered the following discharge prescriptions or medication management in the emergency department Medications were administered in the Emergency Department. See MAR. Independent interpretation of the following test(s) in the Emergency Department EKG: See my EKG interpretation above. Test considered but Not performed: MRI: no mri brain. Historians other than the Patient: EMS: ems well informed. Care significantly affected by the following chronic conditions: Diabetes, Hypertension, Obesity, Chronic Kidney Disease. Counseling: I had a detailed discussion with the patient and/or guardian regarding the historical points, exam findings, and any diagnostic results supporting the discharge/admit diagnosis, the presence of at least one elevated blood pressure reading (>120/80) during this emergency department visit, lab results, radiology results, the need to transfer to another facility, for higher level of care, [facility] does not immediately have the required specialist. 10/24 11:33 Order name: CBC with Diff; Complete Time: 12:32 [facility] 10/24 11:33 Order name: Comprehensive Metabolic Panel; Complete Time: 12:32 [facility] 10/24 11:33 Order name: Troponin HS; Complete Time: 12:32 [facility] 10/24 12:00 Order name: ABG [facility] 10/24 11:51 Order name: CT Head Brain wo Cont; Complete Time: 12:32 [facility] 10/24 12:45 Order name: Chest Single View EDMS 10/24 11:33 Order name: EKG; Complete Time: 11:34 [facility] 10/24 11:33 Order name: EKG - Nurse/Tech; Complete Time: 12:01 charlene 10/24 11:33 Order name: Seizure Precautions; Complete Time: 12: charlene EC:46 Rate is 82 beats/min. Rhythm is regular. QRS [place] is Normal. [place] interval is normal. QRS charlene interval is normal. QT interval is normal. No Q waves. T waves are Normal. No ST changes noted. Clinical impression: NSR w/ Non-specific ST/T Changes and No evidence of ischemia. Interpreted by me. Reviewed by me. Administered Medications: 12:01 Drug: Ativan IVP 1 mg IVP once Route: IVP; Site: right antecubital; [facility] 12:23 Drug: Keppra IV 1000 mg IV at per protocol once Route: IV; Rate: per protocol; Site: [facility] right antecubital; 13:31 Drug: hydrALAZINE IVP 20 mg IVP once Route: IVP; Site: right antecubital; Disposition Summary: 10/25/23 12:20 Transfer Ordered Notes: Transfer Location: 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 EDMS EDMS 11:34 11:34 COMPREHENSIVE METABOLIC PANEL+C.LAB.BRZ ordered. EDMS EDMS 11:34 11:34 Troponin High Sensitivity+C.LAB.BRZ ordered. EDMS EDMS 12:39 11:34 Chest Single View+RAD.RAD.BRZ ordered. EDMS EDMS 13:31 12:20 to [facility] charlene iw
[2023-10-25 12:25] LABS: Albumin 3.4 g/dL (3.4-5.0); Albumin/Globulin Ratio 0.7 (1.1-1.8); Anion Gap 6.2 mEq/L (5.0-15.0); Bilirubin Total 0.5 mg/dL (0.2-1.0); Globulin 4.6 g/dL (2.3-3.5); Potassium 4.2 mEq/L (3.5-5.1); Troponin High Sensitivity 5.2 pg/mL (<58.9)
--- NOTE | 2023-10-25 12:29 | RAD REPORT ---
EXAM DESCRIPTION: CT - Head Brain Wo Cont - 10/25/2023 12:07 pm CLINICAL HISTORY: Seizure COMPARISON: October 23, 2023 TECHNIQUE: Computed axial tomography of the head was obtained. IV contrast was not requested. All CT scans are performed using dose optimization technique as appropriate and may include automated exposure control or mA/KV adjustment according to patient size. FINDINGS: An intracranial bleed is not seen The ventricles are normal in caliber No extra-axial fluid collection is noted. Low-density left caudate head unchanged probably old infarction Fluid within the sinuses/ mastoids is not seen. IMPRESSION: No acute intracranial abnormality is seen If patient's symptoms persist MRI of the brain would be recommended
[2023-10-25 12:35] LABS: Arterial Blood Carboxyhemoglob 1.1 % (0-1.5); Blood Gas Oxyhemoglobin 94.3 % (94-97); Blood Gas THB 13.4 g/dl (12-18); Blood O2 Saturation 97.1 % (92-98.5)
[2023-10-25] MEDS ORDERED: HYDRALAZINE HCL 20 MG/ML VIAL ONE (13:28)
--- NOTE | 2023-10-25 13:30 | RAD REPORT ---
EXAM DESCRIPTION: RADChest Single View10/25/2023 12:45 pm CLINICAL HISTORY: DYSPNEA COMPARISON: Chest Single View dated 10/23/2023; Chest Single View dated 07/31/2023; Chest Single View d ated 07/05/2023; Chest Single View dated 06/12/2023 TECHNIQUE: Portable AP view of the chest. FINDINGS: Right IJ dialysis catheter in place. The lungs are clear, with improved aeration since the prior exam. No pneumothorax or effusion. The cardiomediastinal contours are unremarkable. IMPRESSION: No acute cardiopulmonary process.
[2023-10-25 14:04] VITALS: BP 173/102; TEMP 98.4; O2SAT 100
--- NOTE | 2023-10-26 13:55 | EKG ---
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
== END 2023-10-25 13:31 | disposition short-term general hospital (02) ==
LOC: ER 11:29
DX: G40.509 Epileptic seizures related to external causes, not intractable, without status epilepticus (principal); E11.22 Type 2 diabetes mellitus with diabetic chronic kidney disease; I12.0 Hypertensive chronic kidney disease with stage 5 chronic kidney disease or end stage renal disease; N18.6 End stage renal disease; Z99.2 Dependence on renal dialysis
CPT/HCPCS: 93005; 85025; 36415; 84484; 80053; 70450; 71045; 82805; 96375; 96374; 99284; 36600; J1953; J0360

== ENCOUNTER 2024-05-01 06:22 | Emergency (ER) | payer OTHER, SELFPAY ==
--- OUTSIDE RECORDS SUMMARY | 2024-05-01 06:25 | XMS REPORT | Clinical Summary ---
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
[2024-05-01 07:53] LABS: Absolute Eosinophils 0.1 K/uL (0-0.5); Absolute Lymphocytes (CBC) 1.7 K/uL (0.7-4.9); Absolute Monocytes 0.5 K/uL (0.1-1.3); Absolute Neutrophil 2.3 K/uL (1.8-8.0); Basophils % 0.4 % (0-1.3); Hematocrit 35.2 % (36.0-45.0); Hemoglobin 11.3 g/dL (12.0-15.0); Lymphocytes % 37.5 % (15.3-44.8); MCH 31.3 pg (27.0-35.0); MCV 97.9 fL (80-100); MPV 9.7 fL (7.6-11.3); Neutrophils % 50.1 % (41.7-73.7); Platelets 143 thou/uL (152-406); RBC Red Blood Cell Count 3.59 M/uL (3.86-4.86); Red Cell Distribution Width 14.7 % (12.1-15.2)
[2024-05-01 08:10] LABS: ALT/SGPT < 14 U/L (13-56); AST/SGOT < 10 U/L (15-37); Albumin/Globulin Ratio 0.8 (1.1-1.8); Alkaline Phosphatase 68 U/L (45-117); Anion Gap 9.4 mEq/L (5.0-15.0); BUN Blood Urea Nitrogen 32 mg/dL (7-18); Bicarbonate 27 mEq/L (21-32); Bilirubin Direct < 0.2 mg/dL (0-0.2); Bilirubin Total 0.2 mg/dL (0.2-1.0); Globulin 3.6 g/dL (2.3-3.5); Glomerular Filtration Rate 9 ml/min (=/>90); Glucose Level 104 mg/dL (74-106); Magnesium 2.3 mg/dL (1.6-2.4); NT PRO-BNP 845 pg/mL (<125); Potassium 3.4 mEq/L (3.5-5.1); Protein, Total 6.6 g/dL (6.4-8.2); Sodium Level 140 mEq/L (136-145); Troponin High Sensitivity 8.4 pg/mL (<58.9)
--- NOTE | 2024-05-01 08:12 | RAD REPORT ---
EXAMINATION: ONE VIEW CHEST XR CLINICAL INDICATION: Female, 54 years old.,CHEST PAIN TECHNIQUE: Frontal chest projection is submitted. Examination is limited by patient positioning and t echnique. COMPARISON: 10/25/2023 FINDINGS: The lungs are mildly hypoinflated and clear. No pneumothorax or sizable effusion. The heart is soy l in size. Mediastinal contours are unremarkable. IMPRESSION: No acute intrathoracic abnormalities.
--- NOTE | 2024-05-01 08:12 | RAD REPORT ---
EXAM: CT Head Brain Wo Cont HISTORY: MENTAL STATUS CHANGE COMPARISON: 10/25/2023 TECHNIQUE: Multiple contiguous axial images were obtained for a CT of the brain without contrast. Sag ittal and coronal reformats were performed. One or more of the following dose reduction techniques were used: Automated exposure control, adjus tment of the mA and kV according to patient size, and iterative reconstruction. Unless otherwise specified, incidental findings do not require dedicated imaging follow-up. FINDINGS: No evidence of hydrocephalus, intracranial hemorrhage, or extra-axial fluid collection. Stable focus of hypoattenuation in the left caudate head region, extending slightly caudally, most li rogerio related to a small remote infarct. The brain is otherwise normal in morphology. The calvarium is intact. Right maxillary sinus mucus retention cyst is again seen. Mastoid air cells are essentially clear. IMPRESSION: No evidence of acute intracranial abnormality. Stable findings as above.
[2024-05-01 08:21] LABS: PT Prothrombin Time 11.2 SECONDS (9.4-12.5)
--- NOTE | 2024-05-01 09:05 | ER ---
Nurse's Notes [facility] Name: Bisi Santo Age: 54 yrs Sex: Female : 1970 Arrival Date: 05/01/2024 Time: 06:22 Bed 19 Private MD: Diagnosis: Altered mental status, unspecified;Hypoglycemia, unspecified;Dependence on renal dialysis;Hypokalemia Presentation: 05/01 06:25 Chief complaint: EMS states: was at dialysis, was experiencing confusion where patient al5 was able to follow commands, but was nonverbal along with some weakness. ems checked her blood sugar and was at 70, was given glucose. blood sugar came up to 120 and patient is now aaox4, able to follow commands, strength back to normal. Coronavirus screen: At this time, the client does not indicate any symptoms associated with coronavirus-19. Ebola Screen: No symptoms or risks identified at this time. Initial Sepsis Screen: Does the patient meet any 2 criteria? No. Patient's initial sepsis screen is negative. Does the patient have a suspected source of infection? No. Patient's initial sepsis screen is negative. Risk Assessment: Do you want to hurt yourself or someone else? Patient reports no desire to harm self or others. Onset of symptoms was May 01, 2024. 06:25 Method Of Arrival: EMS: [facility] al5 06:25 Acuity: SONIA 3 al5 06:28 Care prior to arrival: Medication(s) given: 15 gm oral glucose. al5 Triage Assessment: 06:28 General: Appears in no apparent distress. Behavior is calm, cooperative. Pain: al5 Complains of pain in generalized. EENT: No signs and/or symptoms were reported regarding the EENT system. Neuro: Level of Consciousness is awake, alert, obeys commands, Oriented to person, place, time, situation, Bridge Operator Slip are equal bilaterally Moves all extremities. Full function Speech is normal, Facial symmetry appears normal, Pupils are PERRLA. Cardiovascular: Capillary refill < 3 seconds Patient's skin is warm and dry. Respiratory: Airway is patent Respiratory effort is even, unlabored, Respiratory pattern is regular, symmetrical. GI: No signs and/or symptoms were reported involving the gastrointestinal system. : patient is a dialysis patient with port to L side. Derm: Skin is intact, is healthy with good turgor, Skin is pink, warm \T\ dry. normal. Musculoskeletal: No signs and/or symptoms reported regarding the musculoskeletal system. Historical: - Allergies: 06:27 Codeine; al5 06:27 Demerol; al5 :27 Morphine; al5 06:27 Sulfa (Sulfonamide Antibiotics); al5 - Home Meds: :27 calcitriol oral 0.125 mcg once [Active]; carvedilol 25 mg Oral tablet 1 tab once al5 [Active]; hydralazine 25 mg Oral tablet 3 times per day [Active]; Kerendia 10 mg Oral tab 1 tab once daily [Active]; nifedipine 90 mg Oral tablet once [Active]; sevelamer HCl 800 mg Oral tablet 3 times per day [Active]; Zofran Oral [Active]; - PMHx: :27 Diabetes - IDDM; Dialysis (biopsy kidney); Hypertension; kidney disease (Hypertension); al5 - PSHx: :27 biopsy kidney; al5 - Immunization history:: Adult Immunizations up to date. - Infectious Disease History:: Denies. - Social history:: Smoking status: Patient denies any tobacco usage or history of. - Family history:: not pertinent. Screenin:30 [facility] ED Fall Risk Assessment (Adult) History of falling in the last 3 months, al5 including since admission No falls in past 3 months (0 pts) Confusion or Disorientation No (0 pts) Intoxicated or Sedated No (0 pts) Impaired Gait No (0 pts) Mobility Assist Device Used No (0 pt) Altered Elimination No (0 pt) Score/Fall Risk Level 0 - 2 = Low Risk Oriented to surroundings, Maintained a safe environment, Hourly rounding (assess needs \T\ fall precautionary measures) done. Abuse screen: Denies threats or abuse. Denies injuries from another. Nutritional screening: No deficits noted. Tuberculosis screening: No symptoms or risk factors identified. Assessment: 06:30 Reassessment: see triage assessment. al5 07:05 Reassessment: Patient appears in no apparent distress at this time. Patient and/or kj2 family updated on plan of care and expected duration. Pain level reassessed. Patient is alert, oriented x 3, equal unlabored respirations, skin warm/dry/pink. 09:23 Reassessment: DIALYSIS RESCHEDULED FOR 1500 AT CLINIC. PT DC ON HOLD PENDING FAMILY bp TRANSPORT. Vital Signs: 06:25 BP 136 / 71; Pulse 80; Resp 18; Temp 98.4; Pulse Ox 98% on R/A; Weight 77.11 kg; Height al5 5 ft. 0 in. ; 06:59 BP 134 / 72; Pulse 107; Resp 18; Pulse Ox 96% on R/A; kj2 07:43 BP 141 / 79; Pulse 71; Resp 12; Pulse Ox 98% ; bp 09:23 BP 138 / 73; Pulse 74; Resp 16; Pulse Ox 100% ; bp 06:25 Body Mass Index 33.20 (77.11 kg, 152.4 cm) al5 Davy Coma Score: 06:57 Eye Response: spontaneous(4). Motor Response: obeys commands(6). Verbal Response: sp4 oriented(5). Total: 15. NIH Stroke Scale Scores: 07:38 NIHSS Score: 0 [facility] ED Course: 06:24 Patient arrived in ED. ha1 06:24 Len Gresham MD is Attending Physician. ha1 06:27 Triage completed. al5 06:29 Arm band placed on right wrist. Patient placed in the treatment room, on a stretcher. al5 06:30 Patient has correct armband on for positive identification. Bed in low position. Call al5 light in reach. Side rails up X 1. Provided Education on: plan of care. 06:30 No provider procedures requiring assistance completed. al5 06:42 Iza Jones, RN is Primary Nurse. kj2 06:47 Missed attempt(s): 22 gauge Bleeding controlled, band aid applied, catheter tip intact. kmf 06:51 Missed attempt(s): 24 gauge Bleeding controlled, band aid applied, catheter tip intact. kmf 06:55 XRAY Chest (1 view) In Process Unspecified. EDMS 06:58 Client placed on continuous cardiac and pulse oximetry monitoring. NIBP monitoring kj2 applied. 06:58 EKG done, by ED staff. kj2 07:18 Attending Physician role handed off by Len Gresham MD charlene 07:18 Hari De La Garza MD is Attending Physician. charlene 07:42 Initial lab(s) drawn, by tx, sent to lab. Inserted saline lock: 24 gauge in right hand, bp using aseptic technique. Blood collected. 07:54 CT Head Brain wo Cont In Process Unspecified. EDMS 08:19 Primary Nurse role handed off by Iza Jones RN 08:19 Neeraj Li, RN is Primary Nurse. bp 09:04 Shoaib Duong MD is Referral Physician. [facility] Administered Medications: No medications were administered Medication: 06:30 VIS not applicable for this client. al5 Outcome: 09:04 Discharge ordered by . [facility] 09:42 Patient left the ED. bp NIH Stroke Scale - NIH Stroke Score Date: 05/01/2024 Time: 07:38 Total Score = 0 10. Dysarthria (speech clarity - read or repeat words) - 0(Normal) 11. Extinction and Inattention (visual/tactile/auditory/spatial/personal) - 0(No abnormality) 1a. Level of Consciousness (LOC) - 0(Alert) 1b. Level of Consciousness (LOC) (Month \T\ Age) - 0(Both) 1c. LOC Commands (Open \T\ Closes Eyes/Ux Consultant) - 0(Both) 2. Best Gaze (Lateral Gaze Paresis) - 0(Normal) 3. Visual Field Loss - 0(No visual loss) 4. Facial Palsy - 0(Normal) 5a. Left Arm: Motor (10-second hold) - 0(No drift) 5b. Right Arm: Motor (10-second hold) - 0(No drift) 6a. Left Leg: Motor (5-second hold - always test supine) - 0(No drift) 6b. Right Leg: Motor (5-second hold - always test supine) - 0(No drift) 7. Limb Ataxia (finger/nose \T\ heel/tabor - test with eyes open) - 0(Absent) 8. Sensory Loss (pinprick arms/legs/face) - 0(Normal) 9. Best Language: Aphasia (description/naming/reading) - 0(No aphasia) Initials: [facility] Signatures: Dispatcher [employer] EDHari Pemberton MD MD cha Peltier, Brian, RN RN bp Oriana Hsieh RN RN ha1 Len Gresham MD MD sp4 Reyna Jones [facility] Krissy An RN RN al5 Iza Jones RN RN kj2
--- NOTE | 2024-05-01 09:05 | EDPHYS ---
Physician Documentation [facility] Name: Bisi Santo Age: 54 yrs Sex: Female : 1970 Arrival Date: 05/01/2024 Time: 06:22 Bed 19 Private MD: ED Physician Hari De La Garza HPI: 05/01 06:25 This 54 yrs old Black Female presents to ER via Unassigned with complaints of Low Blood sp4 Sugar. 06:56 54 year old black female with history of end-stage renal disease and diabetes presents sp4 by EMS with episode of low blood sugar in the 70s and also episode of acute confusion.. Historical: - Allergies: 06:27 Codeine; al5 06:27 Demerol; al5 06:27 Morphine; al5 06:27 Sulfa (Sulfonamide Antibiotics); al5 - Home Meds: 06:27 calcitriol oral 0.125 mcg once [Active]; carvedilol 25 mg Oral tablet 1 tab once al5 [Active]; hydralazine 25 mg Oral tablet 3 times per day [Active]; Kerendia 10 mg Oral tab 1 tab once daily [Active]; nifedipine 90 mg Oral tablet once [Active]; sevelamer HCl 800 mg Oral tablet 3 times per day [Active]; Zofran Oral [Active]; - PMHx: 06:27 Diabetes - IDDM; Dialysis (biopsy kidney); Hypertension; kidney disease (Hypertension); al5 - PSHx: 06:27 biopsy kidney; al5 - Immunization history:: Adult Immunizations up to date. - Infectious Disease History:: Denies. - Social history:: Smoking status: Patient denies any tobacco usage or history of. - Family history:: not pertinent. ROS: 06:57 Constitutional: Negative for fever, chills, and weight loss, positive for low blood sp4 sugar and confusion 06:57 All other systems are negative, Exam: 06:57 Constitutional: This is a well developed, well nourished patient who is awake, alert, sp4 and in no acute distress. Head/Face: Normocephalic, atraumatic. Eyes: Pupils equal round and reactive to light, extra-ocular motions intact. Lids and lashes normal. Conjunctiva and sclera are not injected. Cornea within normal limits. Periorbital areas with no swelling, redness, or edema. ENT: Nares patent. No nasal discharge, no septal abnormalities noted. Tympanic membranes are normal and external auditory canals are clear. Oropharynx with no redness, swelling, or masses, exudates, or evidence of obstruction, uvula midline. Mucous membranes moist. Neck: Trachea midline, no thyromegaly or masses palpated, and no cervical lymphadenopathy. Supple, full range of motion without nuchal rigidity, or vertebral point tenderness. Chest/axilla: Normal chest wall appearance and motion. Nontender with no deformity. No lesions are appreciated. Cardiovascular: Regular rate and rhythm with a normal S1 and S2. No gallops, murmurs, or rubs. Normal PMI, no JVD. No pulse deficits. Respiratory: Lungs have equal breath sounds bilaterally, clear to auscultation and percussion. No rales, rhonchi or wheezes noted. No increased work of breathing, no retractions or nasal flaring. Abdomen/GI: Soft, with normal bowel sounds. No distension or tympany. No guarding or rebound. No evidence of tenderness throughout. Back: No spinal tenderness. No costovertebral tenderness. Skin: Warm, dry with normal turgor. Normal color with no rashes, no lesions, and no evidence of cellulitis. MS/ Extremity: Pulses equal, no cyanosis. Neurovascular intact. Full, normal range of motion. Neuro: Awake and alert, GCS 15, oriented to person, place, time, and situation. Cranial nerves II-XII grossly intact. Motor strength 5/5 in all extremities. Sensory grossly intact. Psych: Awake, alert, with orientation to person, place and time. Behavior, mood, and affect are within normal limits 06:57 ECG was reviewed by the Attending Physician. EKG at 0 654 normal sinus rhythm rate 72 07:38 Neuro: Orientation: is normal, appropriate for stated age, Mentation: is normal, charlene Memory: is normal, appropriate for stated age, no acute changes, Cranial nerves: grossly normal, is grossly normal based on the patient's age, no acute changes, Cerebellar function: is grossly normal, Motor: is normal, is grossly normal based on the patient's age, Sensation: is normal, Gait: not tested. seizure activity, is not displayed by the patient, Vital Signs: 06:25 BP 136 / 71; Pulse 80; Resp 18; Temp 98.4; Pulse Ox 98% on R/A; Weight 77.11 kg; Height al5 5 ft. 0 in. ; 06:59 BP 134 / 72; Pulse 107; Resp 18; Pulse Ox 96% on R/A; kj2 07:43 BP 141 / 79; Pulse 71; Resp 12; Pulse Ox 98% ; bp 09:23 BP 138 / 73; Pulse 74; Resp 16; Pulse Ox 100% ; bp 06:25 Body Mass Index 33.20 (77.11 kg, 152.4 cm) al5 NIH Stroke Scale Scores: 07:38 NIHSS Score: 0 charlene Davy Coma Score: 06:57 Eye Response: spontaneous(4). Motor Response: obeys commands(6). Verbal Response: sp4 oriented(5). Total: 15. MDM: 06:30 Medical Screening Exam initiated sp4 06:59 Differential diagnosis: hyperglycemia, hyperthyroidism, hypothyroidism. Data reviewed: sp4 vital signs, nurses notes. Transition of care: After a detail discussion of the patient's case, care is transferred to Ishaan Oneil MD. 05/01 06:26 Order name: Basic Metabolic Panel; Complete Time: 08:25 sp4 05/01 06:26 Order name: CBC with Diff; Complete Time: 08:25 sp4 05/01 06:26 Order name: LFT's; Complete Time: 08:25 sp4 05/01 06:26 Order name: Magnesium; Complete Time: 08:25 sp4 05/01 06:26 Order name: NT PRO-BNP; Complete Time: 08:25 sp4 05/01 06:26 Order name: PT-INR; Complete Time: 08:25 sp4 05/01 06:26 Order name: Troponin HS; Complete Time: 08:25 sp4 05/01 06:45 Order name: Glucose, Ancillary Testing; Complete Time: 07:36 EDMS 05/01 06:26 Order name: XRAY Chest (1 view); Complete Time: 08:25 sp4 05/01 07:35 Order name: CT Head Brain wo Cont; Complete Time: 08:25 charlene 05/01 06:26 Order name: Cardiac monitoring; Complete Time: 06:58 sp4 05/01 06:26 Order name: EKG - Nurse/Tech; Complete Time: 06:58 sp4 05/01 06:26 Order name: IV Saline Lock; Complete Time: 07:42 sp4 12 06:26 Order name: Labs collected and sent; Complete Time: 07:42 sp4 05/01 06:26 Order name: O2 Per Protocol; Complete Time: 07:25 sp4 12 06:26 Order name: O2 Sat Monitoring; Complete Time: 07:25 sp4 EC:57 Rate is 72 beats/min. Rhythm is regular, Normal Sinus Rhythm. QRS [place] is Normal. AK sp4 interval is normal. QRS interval is normal. QT interval is normal. No Q waves. T waves are Normal. No ST changes noted. Clinical impression: Normal ECG. Interpreted by me. Reviewed by me. Administered Medications: No medications were administered Disposition Summary: 05/01/24 09:04 Discharge Ordered Notes: Location: Home charlene Problem: new charlene Symptoms: have improved charlene Condition: Stable charlene Diagnosis - Altered mental status, unspecified charlene - Hypoglycemia, unspecified charlene - Dependence on renal dialysis charlene - Hypokalemia charlene Followup: charlene - With: Private Physician - When: 2 - 3 days - Reason: Recheck today's complaints, Continuance of care, Re-evaluation by your physician Followup: charlene - With: Shoaib Duong MD - When: Today - Reason: Recheck today's complaints, Re-evaluation by your physician Discharge Instructions: - Discharge Summary Sheet charlene - Confusion charlene - Potassium Content of Foods charlene - Hypoglycemia charlene - Dialysis charlene - Blood Glucose Monitoring, Adult charlene - Hypoglycemia, [id number] charlene - Hemodialysis charlene Forms: - Medication Reconciliation Form charlene - Antibiotic Education charlene - Prescription Opioid Use charlene - Patient Portal Instructions charlene - Leadership Thank You Letter [facility] NIH Stroke Scale - NIH Stroke Score Date: 05/01/2024 Time: 07:38 Total Score = 0 10. Dysarthria (speech clarity - read or repeat words) - 0(Normal) 11. Extinction and Inattention (visual/tactile/auditory/spatial/personal) - 0(No abnormality) 1a. Level of Consciousness (LOC) - 0(Alert) 1b. Level of Consciousness (LOC) (Month \T\ Age) - 0(Both) 1c. LOC Commands (Open \T\ Closes Eyes/Pressing Machine Tender) - 0(Both) 2. Best Gaze (Lateral Gaze Paresis) - 0(Normal) 3. Visual Field Loss - 0(No visual loss) 4. Facial Palsy - 0(Normal) 5a. Left Arm: Motor (10-second hold) - 0(No drift) 5b. Right Arm: Motor (10-second hold) - 0(No drift) 6a. Left Leg: Motor (5-second hold - always test supine) - 0(No drift) 6b. Right Leg: Motor (5-second hold - always test supine) - 0(No drift) 7. Limb Ataxia (finger/nose \T\ heel/tabor - test with eyes open) - 0(Absent) 8. Sensory Loss (pinprick arms/legs/face) - 0(Normal) 9. Best Language: Aphasia (description/naming/reading) - 0(No aphasia) Initials: charlene Signatures: Dispatcher [employer] EDMS Hari De La Garza MD MD cha Potepalov, Sergey, MD MD sp4 Krissy An RN RN al5 Corrections: (The following items were deleted from the chart) 06:26 06:26 BASIC METABOLIC PANEL+C.LAB.BRZ ordered. EDMS EDMS 06:26 06:26 CBC+H.LAB.BRZ ordered. EDMS EDMS 06:26 06:26 HEPATIC FUNCTION+C.LAB.BRZ ordered. EDMS EDMS 06:26 06:26 MAGNESIUM+C.LAB.BRZ ordered. EDMS EDMS 06:26 06:26 PROBNP+C.LAB.BRZ ordered. EDMS EDMS 06:26 06:26 PROTIME (+INR)+COAG.LAB.BRZ ordered. EDMS EDMS 06:26 06:26 Troponin High Sensitivity+C.LAB.BRZ ordered. EDMS EDMS 06:27 06:27 Chest Single View+RAD.RAD.BRZ ordered. EDMS EDMS
[2024-05-01 12:01] VITALS: TEMP 98.4
[2024-05-01 12:14] VITALS: BP 138/73; O2SAT 100
== END 2024-05-01 09:42 | disposition home or self-care (01) ==
LOC: ER 06:22
DX: R41.82 Altered mental status, unspecified (principal); E11.649 Type 2 diabetes mellitus with hypoglycemia without coma; E87.6 Hypokalemia; I10 Essential (primary) hypertension; Z99.2 Dependence on renal dialysis; Z79.899 Other long term (current) drug therapy; Z88.2 Allergy status to sulfonamides; Z88.5 Allergy status to narcotic agent
CPT/HCPCS: 36415; 70450; 71045; 80048; 80076; 82947; 83735; 83880; 84484; 85025; 85610; 99284

== ENCOUNTER 2024-05-23 11:24 | Observation (INO) | payer BC, OTHER ==
--- OUTSIDE RECORDS SUMMARY | 2024-05-23 11:27 | XMS REPORT | Clinical Summary ---
Author Name Unknown Organization [facility] Address [address] [place] [address] Care Team Providers Care Delivery Driver/Customer Service Name Role Phone Cassie Porter MD Unavailable [phone] Social History Tobacco Use Types Packs/Day Years Used Date Smoking Tobacco: Never Assessed Comments Unknown Sex and Gender Information Value Date Recorded Sex Assigned at Not on file Legal Sex Female 3:00 PM JIG [employer] Gender Identity Not on file Sexual Orientation Not on file Plan of Treatment Not on file Care Teams Delivery Driver/Customer Service Relationship Specialty Start Date End Date Cassie Porter MD [address] [place] [id number] PCP - External Referring 04/29/18
[2024-05-23 11:53] LABS: Absolute Monocytes 0.2 K/uL (0.1-1.3); Absolute Neutrophil 3.1 K/uL (1.8-8.0); Basophils % 0.5 % (0-1.3); Eosinophils % 0.1 % (0-4.4); Hematocrit 38.3 % (36.0-45.0); Hemoglobin 12.5 g/dL (12.0-15.0); MCH 31.6 pg (27.0-35.0); MCHC 32.6 g/dL (32.0-36.0); MCV 96.8 fL (80-100); MPV 9.4 fL (7.6-11.3); Monocytes % 3.8 % (3.3-12.3); Neutrophils % 72.6 % (41.7-73.7); Platelets 161 thou/uL (152-406); RBC Red Blood Cell Count 3.95 M/uL (3.86-4.86); Red Cell Distribution Width 14.1 % (12.1-15.2)
[2024-05-23 11:58] LABS: PT Prothrombin Time 11.3 SECONDS (9.4-12.5); Protime INR 1.01
[2024-05-23 12:17] LABS: Albumin/Globulin Ratio 0.8 (1.1-1.8); Alkaline Phosphatase 67 U/L (45-117); Anion Gap 10.5 mEq/L (5.0-15.0); BUN Blood Urea Nitrogen 60 mg/dL (7-18); Bicarbonate 26 mEq/L (21-32); Bilirubin Total 0.3 mg/dL (0.2-1.0); Globulin 3.9 g/dL (2.3-3.5); Glomerular Filtration Rate 7 ml/min (=/>90); Glucose Level 102 mg/dL (74-106); Lipase 10 U/L (13-75); Magnesium 2.2 mg/dL (1.6-2.4); NT PRO-BNP 1404 pg/mL (<125); Potassium 3.5 mEq/L (3.5-5.1); Protein, Total 6.9 g/dL (6.4-8.2); Sodium Level 140 mEq/L (136-145); Troponin High Sensitivity 8.9 pg/mL (<58.9)
[2024-05-23 12:18] LABS: ALT/SGPT < 14 U/L (13-56); AST/SGOT < 10 U/L (15-37); Bilirubin Direct < 0.2 mg/dL (0-0.2); Bilirubin Indirect, Calculated 0.1 mg/dL (0.2-0.8)
--- NOTE | 2024-05-23 13:47 | EDPHYS ---
Physician Documentation [facility] Name: Bisi Santo Age: 54 yrs Sex: Female : 1970 Arrival Date: 05/23/2024 Time: 11:24 Bed 2 Private MD: ED Physician Hari De La Garza HPI: 05/23 13:39 This 54 yrs old Black Female presents to ER via EMS with complaints of Low Blood Sugar. charlene 13:39 The patient or guardian reports hypoglycemia. Onset: The symptoms/episode charlene began/occurred just prior to arrival, this morning. Associated signs and symptoms: Pertinent positives: unresponsive. Current symptoms: In the emergency department the patient's symptoms have improved, moderately, is more alert. The patient has experienced similar episodes in the past, a few times. Historical: - Allergies: 11:32 Codeine; bp 11:32 Demerol; bp 11:32 Morphine; bp 11:32 Sulfa (Sulfonamide Antibiotics); bp - PMHx: 11:32 Diabetes - IDDM; Dialysis (biopsy kidney); Hypertension; kidney disease (Hypertension); bp - PSHx: 11:32 biopsy kidney; bp - Immunization history:: Adult Immunizations up to date. - Infectious Disease History:: Denies. - Social history:: Smoking status: Patient denies any tobacco usage or history of. ROS: 13:40 Constitutional: Negative for fever, chills, and weight loss, Eyes: Negative for injury, charlene pain, redness, and discharge, ENT: Negative for injury, pain, and discharge, Neck: Negative for injury, pain, and swelling, Cardiovascular: Negative for chest pain, palpitations, and edema, Abdomen/GI: Negative for abdominal pain, nausea, vomiting, diarrhea, and constipation, Back: Negative for injury and pain, : Negative for injury, bleeding, discharge, and swelling, MS/Extremity: Negative for injury and deformity, Skin: Negative for injury, rash, and discoloration, Psych: Negative for depression, anxiety, suicide ideation, homicidal ideation, and hallucinations, Allergy/Immunology: Negative for hives, rash, and allergies, Hematologic/Lymphatic: Negative for swollen nodes, abnormal bleeding, and unusual bruising, 13:40 Respiratory: Positive for shortness of breath, 13:40 Neuro: Positive for altered mental status, weakness, unresponsive at the scene, Exam: 13:41 Constitutional: This is a well developed, well nourished patient who is awake, alert, charlene and in no acute distress. Head/Face: Normocephalic, atraumatic. Eyes: Pupils equal round and reactive to light, extra-ocular motions intact. Lids and lashes normal. Conjunctiva and sclera are non-icteric and not injected. Cornea within normal limits. Periorbital areas with no swelling, redness, or edema. ENT: Nares patent. No nasal discharge, no septal abnormalities noted. Tympanic membranes are normal and external auditory canals are clear. Oropharynx with no redness, swelling, or masses, exudates, or evidence of obstruction, uvula midline. Mucous membranes moist. Neck: Trachea midline, no thyromegaly or masses palpated, and no cervical lymphadenopathy. Supple, full range of motion without nuchal rigidity, or vertebral point tenderness. No Meningismus. Chest/axilla: Normal chest wall appearance and motion. Nontender with no deformity. No lesions are appreciated. Cardiovascular: Regular rate and rhythm with a normal S1 and S2. No gallops, murmurs, or rubs. Normal PMI, no JVD. No pulse deficits. Respiratory: Lungs have equal breath sounds bilaterally, clear to auscultation and percussion. No rales, rhonchi or wheezes noted. No increased work of breathing, no retractions or nasal flaring. Abdomen/GI: Soft, non-tender, with normal bowel sounds. No distension or tympany. No guarding or rebound. No evidence of tenderness throughout. Back: No spinal tenderness. No costovertebral tenderness. Full range of motion. Skin: Warm, dry with normal turgor. Normal color with no rashes, no lesions, and no evidence of cellulitis. MS/ Extremity: Pulses equal, no cyanosis. Neurovascular intact. Full, normal range of motion., bilateral aka Psych: Awake, alert, with orientation to person, place and time. Behavior, mood, and affect are within normal limits. 13:41 ECG was reviewed by the Attending Physician. 13:41 Neuro: Orientation: is normal, appropriate for stated age, no acute changes, Mentation: is normal, appropriate for stated age, no acute changes, Memory: is normal, appropriate for stated age, no acute changes, Cranial nerves: grossly normal, is grossly normal based on the patient's age, no acute changes, Cerebellar function: is grossly normal, is grossly normal based on the patient's age, no acute changes, Motor: is normal, is grossly normal based on the patient's age, no acute changes, moves all fours, strength is normal, Sensation: Gait: not tested. Babinski testing is normal, seizure activity, is not displayed by the patient, Vital Signs: 11:31 BP 177 / 102; Pulse 81; Resp 15; Temp 98; Pulse Ox 99% ; bp 13:00 BP 155 / 80; Pulse 94; Resp 15; Pulse Ox 96% ; bp 15:00 BP 153 / 78; Pulse 86; Resp 15; Pulse Ox 97% ; bp 18:09 BP 155 / 72; Pulse 86; Resp 16; Temp 98; Pulse Ox 95% ; bp NIH Stroke Scale Scores: 13:41 NIHSS Score: 0 charlene MDM: 11:31 Medical Screening Exam initiated charlene 13:43 Differential diagnosis: hypoglycemic episode. Differential Diagnosis altered mental charlene status, sepsis, flu. Differential Diagnosis: CVA, electrolyte abnormality, hypoglycemia, intracranial bleed, pneumonia, seizure, sepsis, TIA, UTI, volume depletion. Data reviewed: vital signs, nurses notes, EMS record, lab test result(s), EKG, radiologic studies, plain films. Consideration of Admission/Observation Patient was admitted/placed on observation. Escalation of care including admission/observation considered. I considered the following discharge prescriptions or medication management in the emergency department Medications were administered in the Emergency Department. See MAR. Independent interpretation of the following test(s) in the Emergency Department EKG: See my EKG interpretation above. Test considered but Not performed: CT: no ct head. Historians other than the Patient: EMS: ems well informed. Care significantly affected by the following chronic conditions: Diabetes, Hypertension, Obesity, Chronic Kidney Disease. Counseling: I had a detailed discussion with the patient and/or guardian regarding the historical points, exam findings, and any diagnostic results supporting the discharge/admit diagnosis, the presence of at least one elevated blood pressure reading (>120/80) during this emergency department visit, lab results, radiology results, the need for further work-up and treatment in the hospital. 05/23 11:34 Order name: Basic Metabolic Panel; Complete Time: 13:36 charlene 05/23 11:34 Order name: CBC with Diff; Complete Time: 13:[address] [facility] 05/23 11:34 Order name: LFT's; Complete Time: 13:[address] [facility] 05/23 11:34 Order name: Magnesium; Complete Time: 13:[address] [facility] 05/23 11:34 Order name: NT PRO-BNP; Complete Time: 13:[address] [facility] 05/23 11:34 Order name: PT-INR; Complete Time: 13:[address] [facility] 05/23 11:34 Order name: Troponin HS; Complete Time: 13:[address] [facility] 05/23 11:34 Order name: Urinalysis w/ reflexes [facility] 05/23 11:34 Order name: Lipase; Complete Time: 13:[address] [facility] 05/23 15:57 Order name: Glucose, Ancillary Testing [facility] 05/23 17:40 Order name: CBC with Automated Diff [facility] 05/23 17:40 Order name: CBC with Automated Diff [facility] 05/23 17:40 Order name: Comprehensive Metabolic Panel [facility] 05/23 17:40 Order name: Comprehensive Metabolic Panel [facility] 05/23 17:40 Order name: Hemoglobin A1c [facility] 05/23 17:40 Order name: Hemoglobin A1c [facility] 05/23 11:34 Order name: XRAY Chest (1 view) [facility] 05/23 11:34 Order name: EKG; Complete Time: 11:[address] [facility] 05/23 17:40 Order name: CONS Physician Consult [facility] 05/23 11:34 Order name: Cardiac monitoring; Complete Time: 11:[address] [facility] 05/23 11:34 Order name: EKG - Nurse/Tech; Complete Time: 12:[address] [facility] 05/23 11:34 Order name: IV Saline Lock; Complete Time: 11:[address] [facility] 05/23 11:34 Order name: Labs collected and sent; Complete Time: 11:[address] [facility] 05/23 11:34 Order name: O2 Per Protocol; Complete Time: 11:[address] [facility] 05/23 11:34 Order name: O2 Sat Monitoring; Complete Time: 11:[address] [facility] 05/23 13:46 Order name: Misc. Order: REMOVE IO; Complete Time: 15:[address] [facility] EC:41 Rate is 84 beats/min. Rhythm is regular. QRS [place] is Normal. [place] interval is normal. QRS charlene interval is normal. QT interval is normal. No Q waves. T waves are Normal. No ST changes noted. Clinical impression: NSR w/ Non-specific ST/T Changes and No evidence of ischemia. Interpreted by me. Reviewed by me. Administered Medications: No medications were administered Disposition Summary: 05/23/24 13:46 Hospitalization Ordered Notes: Hospitalization Status: Observation charlene Provider: Lionel Man cha Location: Telemetry/MedSurg (observation) charlene Condition: Fair charlene Problem: new charlene Symptoms: have improved charlene Bed/Room Type: Standard [facility] Room Assignment: 215(05/23/24 17:52) eb Diagnosis - Syncope Near charlene - Diabetes mellitus due to underlying condition with hypoglycemia without coma charlene - Altered mental status, unspecified charlene - Morbid (severe) obesity with alveolar hypoventilation charlene - Dependence on renal dialysis - MWF , MISSED SATURDAY charlene - Dyspnea charlene Forms: - Medication Reconciliation Form charlene - SBAR form charlene - Leadership Thank You Letter charlene NIH Stroke Scale - NIH Stroke Score Date: 05/23/2024 Time: 13:41 Total Score = 0 10. Dysarthria (speech clarity - read or repeat words) - 0(Normal) 11. Extinction and Inattention (visual/tactile/auditory/spatial/personal) - 0(No abnormality) 1a. Level of Consciousness (LOC) - 0(Alert) 1b. Level of Consciousness (LOC) (Month \T\ Age) - 0(Both) 1c. LOC Commands (Open \T\ Closes Eyes/Membership Sales Manager) - 0(Both) 2. Best Gaze (Lateral Gaze Paresis) - 0(Normal) 3. Visual Field Loss - 0(No visual loss) 4. Facial Palsy - 0(Normal) 5a. Left Arm: Motor (10-second hold) - 0(No drift) 5b. Right Arm: Motor (10-second hold) - 0(No drift) 6a. Left Leg: Motor (5-second hold - always test supine) - 0(No drift) 6b. Right Leg: Motor (5-second hold - always test supine) - 0(No drift) 7. Limb Ataxia (finger/nose \T\ heel/tabor - test with eyes open) - 0(Absent) 8. Sensory Loss (pinprick arms/legs/face) - 0(Normal) 9. Best Language: Aphasia (description/naming/reading) - 0(No aphasia) Initials: [facility] Signatures: Dispatcher [employer] EDHari Pemberton MD MD cha Peltier, Brian RN RN bp Barros Brittney eb Corrections: (The following items were deleted from the chart) 17:52 13:46 charlene marrero
--- NOTE | 2024-05-23 13:47 | ER ---
Nurse's Notes [facility] Name: Bisi Santo Age: 54 yrs Sex: Female : 1970 Arrival Date: 05/23/2024 Time: 11:24 Bed 2 Private MD: Diagnosis: Syncope Near;Diabetes mellitus due to underlying condition with hypoglycemia without coma;Altered mental status, unspecified;Morbid (severe) obesity with alveolar hypoventilation;Dependence on renal dialysis-MWF , MISSED SATURDAY;Dyspnea Presentation: 05/23 11:31 Chief complaint: EMS states: FOUND DOWN BY FAMILY AND EMS, INITIAL BGL 32, NOW 115. bp Coronavirus screen: At this time, the client does not indicate any symptoms associated with coronavirus-19. Ebola Screen: No symptoms or risks identified at this time. Initial Sepsis Screen: Does the patient meet any 2 criteria? No. Patient's initial sepsis screen is negative. Does the patient have a suspected source of infection? No. Patient's initial sepsis screen is negative. Risk Assessment: Do you want to hurt yourself or someone else? Patient reports no desire to harm self or others. Onset of symptoms was May 23, 2024. Care prior to arrival: IV initiated. 15 GA R TIB IO. 11:31 Method Of Arrival: EMS: [facility] bp 11:31 Acuity: SONIA 3 bp Triage Assessment: 11:32 General: Appears in no apparent distress. obese, unkempt, Behavior is cooperative, bp appropriate for age, anxious. Pain: Denies pain. EENT: No deficits noted. Neuro: No deficits noted. Cardiovascular: Rhythm is sinus rhythm. Respiratory: No deficits noted. GI: No signs and/or symptoms were reported involving the gastrointestinal system. : No signs and/or symptoms were reported regarding the genitourinary system. Derm: No deficits noted. Musculoskeletal: No deficits noted. Historical: - Allergies: 11:32 Codeine; bp 11:32 Demerol; bp 11:32 Morphine; bp 11:32 Sulfa (Sulfonamide Antibiotics); bp - PMHx: 11:32 Diabetes - IDDM; Dialysis (biopsy kidney); Hypertension; kidney disease (Hypertension); bp - PSHx: 11:32 biopsy kidney; bp - Immunization history:: Adult Immunizations up to date. - Infectious Disease History:: Denies. - Social history:: Smoking status: Patient denies any tobacco usage or history of. Screenin:34 [facility] ED Fall Risk Assessment (Adult) History of falling in the last 3 months, bp including since admission No falls in past 3 months (0 pts) Confusion or Disorientation No (0 pts) Intoxicated or Sedated No (0 pts) Impaired Gait No (0 pts) Mobility Assist Device Used No (0 pt) Altered Elimination No (0 pt) Score/Fall Risk Level 0 - 2 = Low Risk Oriented to surroundings. Abuse screen: Denies threats or abuse. Denies injuries from another. Nutritional screening: No deficits noted. Tuberculosis screening: No symptoms or risk factors identified. Assessment: 11:30 General: Appears in no apparent distress. Behavior is cooperative, appropriate for age, bp anxious. 13:00 Reassessment: Patient appears in no apparent distress at this time. Patient is alert, bp oriented x 3, equal unlabored respirations, skin warm/dry/pink. 15:00 Reassessment: Patient appears in no apparent distress at this time. Patient is alert, bp oriented x 3, equal unlabored respirations, skin warm/dry/pink. 18:15 Reassessment: REPORT FAXED FOR RM 215. bp Vital Signs: 11:31 BP 177 / 102; Pulse 81; Resp 15; Temp 98; Pulse Ox 99% ; bp 13:00 BP 155 / 80; Pulse 94; Resp 15; Pulse Ox 96% ; bp 15:00 BP 153 / 78; Pulse 86; Resp 15; Pulse Ox 97% ; bp 18:09 BP 155 / 72; Pulse 86; Resp 16; Temp 98; Pulse Ox 95% ; bp NIH Stroke Scale Scores: 13:41 NIHSS Score: 0 charlene ED Course: 11:30 Patient arrived in ED. bp 11:31 Hari De La Garza MD is Attending Physician. charlene 11:32 Triage completed. bp 11:32 Arm band placed on. bp 11:34 Patient has correct armband on for positive identification. bp 11:34 Maintain EMS IV. Dressing intact. Site clean \T\ dry. Gauge \T\ site: 15 GA R TIB IO. bp Flushed with 10 mL NS. 11:44 Neeraj Li, RN is Primary Nurse. bp 11:44 Initial lab(s) drawn, by me, sent to lab. Inserted saline lock: 22 gauge in right bp antecubital area, using aseptic technique. Blood collected. Flushed with 10 mL NS. 13:30 XRAY Chest (1 view) In Process Unspecified. EDMS 13:44 Lionel Man MD is Hospitalizing Provider. [facility] 19:02 No provider procedures requiring assistance completed. Patient admitted, IV remains in bp place. Administered Medications: No medications were administered Medication: 11:34 VIS not applicable for this client. bp Outcome: 13:46 Decision to Hospitalize by Provider. charlene 19:01 Admitted to Med/surg accompanied by nurse, via stretcher, bp 19:01 Condition: stable 19:01 Instructed on the need for admit, 19:02 Patient left the ED. bp NIH Stroke Scale - NIH Stroke Score Date: 05/23/2024 Time: 13:41 Total Score = 0 10. Dysarthria (speech clarity - read or repeat words) - 0(Normal) 11. Extinction and Inattention (visual/tactile/auditory/spatial/personal) - 0(No abnormality) 1a. Level of Consciousness (LOC) - 0(Alert) 1b. Level of Consciousness (LOC) (Month \T\ Age) - 0(Both) 1c. LOC Commands (Open \T\ Closes Eyes/Program Research Specialist) - 0(Both) 2. Best Gaze (Lateral Gaze Paresis) - 0(Normal) 3. Visual Field Loss - 0(No visual loss) 4. Facial Palsy - 0(Normal) 5a. Left Arm: Motor (10-second hold) - 0(No drift) 5b. Right Arm: Motor (10-second hold) - 0(No drift) 6a. Left Leg: Motor (5-second hold - always test supine) - 0(No drift) 6b. Right Leg: Motor (5-second hold - always test supine) - 0(No drift) 7. Limb Ataxia (finger/nose \T\ heel/tabor - test with eyes open) - 0(Absent) 8. Sensory Loss (pinprick arms/legs/face) - 0(Normal) 9. Best Language: Aphasia (description/naming/reading) - 0(No aphasia) Initials: [facility] Signatures: Dispatcher [employer] EDMS Hari De La Garza MD MD cha Peltier, Brian, RN RN bp
--- NOTE | 2024-05-23 13:52 | RAD REPORT ---
EXAM: Chest Single View HISTORY: COUGH COMPARISON: 05/01/2024 FINDINGS: LUNGS/PLEURA: The lungs are clear. No pleural effusions or pneumothorax. No pulmonary edema. MEDIASTINUM: The mediastinal silhouette is within normal limits. CARDIAC: Within normal limits. UPPER ABDOMEN: No significant abnormality. BONES: No acute fracture. LINES/TUBES/OTHER: Surgical clips at the left chest wall. IMPRESSION: No evidence of acute cardiopulmonary disease.
--- NOTE | 2024-05-23 14:48 | P.HP ---
Certification for Inpatient Patient admitted to: Inpatient With expected LOS: >2 Midnights Patient will require the following post-hospital care: None Practitioner: I am a practitioner with admitting privileges, knowledge of patient current condition, hospital course, and medical plan of care. Services: Services provided to patient in accordance with Admission requirements found in Title 42 Section 412.3 of the Code of Federal Regulations Patient History Date of Service: 05/23/24 Reason for admission: Altered mental status; hypoglycemia History of Present Illness: Patient is a 54-year-old female came to the hospital with altered mentation. Patient was found fused and not responding. Patient with found to have a blood sugar of 35. Patient had an intraosseous catheter placed and patient was given dextrose. Patient feeling much better. Patient awake and alert. IV placed. Patient missed hemodialysis this afternoon. Will consult nephrology. Patient will be admitted for observation. Clinically, she is doing well and she can possibly go home but because of her being on hemodialysis and having insulin in her system we will watch her overnight. Allergies codeine Allergy (Unknown, Verified 06/28/15 16:01) Unknown meperidine [From Demerol] Allergy (Unknown, Verified 05/28/20 20:02) Unknown morphine Allergy (Unknown, Verified 05/28/20 20:02) hallucination Sulfa (Sulfonamide Antibiotics) Allergy (Unknown, Verified 05/28/20 20:02) Unknown Home Medications: Atorvastatin Calcium [Lipitor] 40 mg PO BEDTIME #30 tab 02/27/23 Folic Acid 1 mg PO DAILY #30 tab 02/27/23 Nifedipine Xl [Procardia Xl*] 30 mg PO DAILY #30 tab 02/27/23 carvediloL [Coreg*] 25 mg PO BID 6AM 6PM #60 tab 02/27/23 Furosemide 40 mg PO DAILY 07/31/23 Hydralazine [Apresoline*] 50 mg PO Q8HR 07/31/23 Insulin Glargine,Hum.rec.anlog [Lantus] 20 units SQ DAILY 07/31/23 Ondansetron [Zofran] 4 mg PO Q6H PRN 07/31/23 Sevelamer Carbonate 1 pkt PO TIDWM 07/31/23 - Past Medical/Surgical History Diabetic: Yes -: hyperlipidemia -: Hypertension -: Type 2 diabetes -: HLD -: CKD -: partial hysterectomy -: cyst removed from groin -: carpal tunnel repair -: Cholcystectomy - Family History Mother Medical History: Hypertension, Diabetes Brother Medical History: Diabetes Father Medical History: Hypertension, Diabetes - Social History Smoking Status: Former smoker Alcohol use: No CD- Drugs: No Caffeine use: No Review of Systems 10-point ROS is otherwise unremarkable Physical Examination - Vital Signs Temperature: 98 F Blood Pressure: 140/80 Pulse: 80 Respirations: 18 Pulse Ox (%): 95 - Physical Exam General: Alert, In no apparent distress, Oriented x3 HEENT: Atraumatic, PERRLA, Mucous membr. moist/pink, EOMI, Sclerae nonicteric Neck: Supple, 2+ carotid pulse no bruit, No LAD, Without JVD or thyroid abnormality Respiratory: Clear to auscultation bilaterally, Normal air movement Cardiovascular: Regular rate/rhythm, Normal S1 S2, No murmurs Gastrointestinal: Normal bowel sounds, Soft and benign, Non-distended, No tenderness Musculoskeletal: No clubbing, No swelling, No tenderness Integumentary: No rashes, Other (Intraosseous in place in the right tibia) Neurological: Normal speech, Sensation intact, Cranial nerves 3-12 intact, Abnormal gait, Abnormal strength, Abnormal affect Lymphatics: No axilla or inguinal lymphadenopathy - Studies Laboratory Data (last 24 hrs) 05/23/24 05/23/24 05/23/24 11:45 11:45 11:45 WBC 4.30 Hgb 12.5 Hct 38.3 Plt Count 161 PT 11.3 INR 1.01 Sodium 140 Potassium 3.5 BUN 60 H Creatinine 6.52 H Glucose 102 Magnesium 2.2 Total Bilirubin 0.3 AST < 10 L ALT < 14 Alkaline Phosphatase 67 Lipase 10 L Assessment & Plan - Problems (Diagnosis) (1) Hypoglycemia Current Visit: Yes Status: Acute (2) Hypertension Current Visit: Yes Status: Acute (3) Type 2 diabetes mellitus Current Visit: Yes Status: Acute Qualifiers: Diabetes mellitus fpc insulin use: with 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 Accu-Cheks before every meal nightly; hold Lantus for the time being. Monitor blood sugars and will restart Lantus if blood sugars get over 200. Will initiate hemodialysis with nephrology as patient may still have insulin in her system. Will go ahead and check insulin and C-peptide level. Consulted nephrology for hemodialysis. 2. Strict blood pressure and blood sugar control; resume home medications 3. Patient be admitted for observation. Blood sugars are stable and anticipate discharge in a.m. Discharge Plan: Home Plan to discharge in: 24 Hours - Advance Directives Does patient have a Living Will: No Does patient have a Durable POA for Healthcare: No - Code Status/Comfort Care Code Status Assessed: Yes Code Status: Full Code Critical Care: No Time Spent Managing PTS Care (In Minutes): 45
[2024-05-23] MEDS ORDERED: ONDANSETRON 4 MG/2 ML VIAL IV PRN (17:36)
[2024-05-23] MEDS ORDERED: ACETAMINOPHEN 500 MG TAB PO PRN (17:36)
[2024-05-23] MEDS ORDERED: MORPHINE 2 MG/ML SYR IV PRN (17:36)
[2024-05-23 19:57] VITALS: BMI 30.7
[2024-05-23] MEDS ORDERED: TRAMADOL HCL 50 MG TAB PO PRN (22:53)
[2024-05-23 23:32] LABS: Specific Gravity 1.016 (1.005-1.030); Sqamous Epithelial <5 /HPF (None Seen); Urine Bacteria 20-50 /HPF (<20); Urine Bilirubin NEGATIVE (Negative); Urine Blood Negative (Negative); Urine Clarity Extremely Turbid (Clear); Urine Color Light-Yellow (Yellow); Urine Crystals Unidentified Few /HPF (None Seen); Urine Culture Reflex Order REFLEXED; Urine Glucose NEGATIVE (Negative); Urine Ketones NEGATIVE (Negative); Urine Microscopic Reflex YN ORDER UMIC; Urine Mucus Slight /HPF (None Seen); Urine Nitrite NEGATIVE (Negative); Urine Protein 1+ (Negative); Urine RBC <5 /HPF (None Seen); Urine Urobilinogen Normal (Normal); Urine WBC 20-50 /HPF (<5); Urine pH 5.5 (5.0-7.0)
[2024-05-24 05:22] LABS: Absolute Lymphocytes (CBC) 1.8 K/uL (0.7-4.9); Absolute Monocytes 0.5 K/uL (0.1-1.3); Absolute Neutrophil 3.6 K/uL (1.8-8.0); Basophils % 0.8 % (0-1.3); Eosinophils % 0.8 % (0-4.4); Hematocrit 31.5 % (36.0-45.0); Hemoglobin 10.2 g/dL (12.0-15.0); Lymphocytes % 29.8 % (15.3-44.8); MCH 31.2 pg (27.0-35.0); MCHC 32.6 g/dL (32.0-36.0); MCV 95.7 fL (80-100); MPV 10.1 fL (7.6-11.3); Monocytes % 8.4 % (3.3-12.3); Neutrophils % 60.2 % (41.7-73.7); Platelets 169 thou/uL (152-406); RBC Red Blood Cell Count 3.29 M/uL (3.86-4.86); Red Cell Distribution Width 14.2 % (12.1-15.2)
[2024-05-24 06:54] LABS: ALT/SGPT < 14 U/L (13-56); AST/SGOT < 10 U/L (15-37); Albumin 2.6 g/dL (3.4-5.0); Albumin/Globulin Ratio 0.8 (1.1-1.8); Alkaline Phosphatase 55 U/L (45-117); Anion Gap 10.5 mEq/L (5.0-15.0); BUN Blood Urea Nitrogen 70 mg/dL (7-18); Bicarbonate 26 mEq/L (21-32); Bilirubin Total 0.2 mg/dL (0.2-1.0); Globulin 3.1 g/dL (2.3-3.5); Glomerular Filtration Rate 7 ml/min (=/>90); Glucose Level 95 mg/dL (74-106); Potassium 3.5 mEq/L (3.5-5.1); Protein, Total 5.7 g/dL (6.4-8.2); Sodium Level 143 mEq/L (136-145)
--- NOTE | 2024-05-24 07:26 | P.DS ---
Admission Date: 05/23/24 Discharge Date: 05/24/24 Disposition: ROUTINE DISCHARGE Discharge Condition: GOOD Reason for Admission: Altered mental status; hypoglycemia Brief History of Present Illness: Patient is a 54-year-old female came to the hospital with altered mentation. Patient was found fused and not responding. Patient with found to have a blood sugar of 35. Patient had an intraosseous catheter placed and patient was given dextrose. Patient feeling much better. Patient awake and alert. IV placed. Patient missed hemodialysis this afternoon. Will consult nephrology. Patient will be admitted for observation. Clinically, she is doing well and she can possibly go home but because of her being on hemodialysis and having insulin in her system we will watch her overnight. - Physical Exam General: Alert, In no apparent distress, Oriented x3 HEENT: Atraumatic, PERRLA, Mucous membr. moist/pink, EOMI, Sclerae nonicteric Neck: Supple, 2+ carotid pulse no bruit, No LAD, Without JVD or thyroid abnormality Respiratory: Clear to auscultation bilaterally, Normal air movement Cardiovascular: Regular rate/rhythm, Normal S1 S2, No murmurs Gastrointestinal: Normal bowel sounds, Soft and benign, Non-distended, No tenderness Musculoskeletal: No clubbing, No swelling, No tenderness Integumentary: No rashes, Other (Intraosseous in place in the right tibia) Neurological: Normal speech, Sensation intact, Cranial nerves 3-12 intact, Abnormal gait, Abnormal strength, Abnormal affect Lymphatics: No axilla or inguinal lymphadenopathy Hospital Course: 54-year-old female came to the hospital with altered mentation. Patient was found on floor and not responding. Patient noted to have a blood sugar of 35. Patient had an intraosseous catheter placed and patient was given dextrose. Patient feeling much better. Patient awake and alert. IV placed. Patient missed hemodialysis this afternoon. consulted nephrology for HD today. She admitted for observation. Blood glucose improved overnight, she received hemodialysis. Stable to discharge home, follow-up with PCP in 1 week, call office for appointment instructed on strict blood glucose monitoring, eating with meals to prevent hypoglycemia. instructed on strict blood glucose monitoring, eating with meals to prevent hypoglycemia. Educated on compliance for hemodialysis schedule Assessment Insulin-dependent diabetes mellitus had noted hypoglycemia-improved with IV dextrose, End-stage renal disease on hemodialysis, treatment noncompliance-treated by nephrology, follow-up with nephrology outpatient for hemodialysis Essential hypertension resume home antihypertensive Continue home medicines as previously prescribed GOAL: Clear understanding of disease process INSTRUCTIONS: Physician Discharge Instructions: -Follow-up with nephrology after discharge for hemodialysis schedule -Follow-up with PCP in 1 to 2 weeks -Please call Dr. Man at [phone] if any questions regarding hospital stay -Please call nursing station at [phone] if any nursing or medication questions -Return to the emergency room if symptoms worsen Diet: ADA, low sodium Activity: Fall precautions Vital Signs/Physical Exam: Temp Pulse Resp BP Pulse Ox 98.9 F 85 16 141/70 H 97 05/24/24 04:00 05/24/24 04:00 05/24/24 04:00 05/24/24 04:00 05/24/24 04:00 Laboratory Data at Discharge: WBC 6.00 thou/uL (4.3-10.9) 05/24/24 04:53 Hgb 10.2 g/dL (12.0-15.0) L D 05/24/24 04:53 Hct 31.5 % (36.0-45.0) L 05/24/24 04:53 Plt Count 169 thou/uL (152-406) 05/24/24 04:53 PT 11.3 SECONDS (9.4-12.5) 05/23/24 11:45 INR 1.01 05/23/24 11:45 Sodium 143 mEq/L (136-145) 05/24/24 06:21 Potassium 3.5 mEq/L (3.5-5.1) 05/24/24 06:21 BUN 70 mg/dL (7-18) H 05/24/24 06:21 Creatinine 6.83 mg/dL (0.55-1.02) H 05/24/24 06:21 Glucose 95 mg/dL (74-106) 05/24/24 06:21 Magnesium 2.2 mg/dL (1.6-2.4) 05/23/24 11:45 Total Bilirubin 0.2 mg/dL (0.2-1.0) 05/24/24 06:21 AST < 10 U/L (15-37) L 05/24/24 06:21 ALT < 14 U/L (13-56) 05/24/24 06:21 Alkaline Phosphatase 55 U/L (45-117) 05/24/24 06:21 Lipase 10 U/L (13-75) L 05/23/24 11:45 Home Medications: Aspirin [[place]] 81 mg PO 1X 05/24/24 Atorvastatin Calcium [Lipitor] 40 mg PO DAILY 05/24/24 Carvedilol [Coreg] 25 mg PO BID 05/24/24 Divalproex Sodium [Depakote] 500 mg PO BID 05/24/24 Divalproex [Depakote Sprinkle*] 4 cap PO BID 05/24/24 Folic Acid 1 mg PO 1X 05/24/24 Furosemide 80 mg PO DAILY 05/24/24 Gabapentin 100 mg PO BEDTIME 05/24/24 Hydralazine HCl 50 mg PO Q8HP PRN 05/24/24 Insulin Glargine,Hum.rec.anlog [Lantus] 10 unit SQ AFTER EACH DIALYSIS #2 vial 05/24/24 Losartan Potassium 50 mg PO 1X 05/24/24 levETIRAcetam [Keppra] 500 mg PO BID 05/24/24 New Medications: Insulin Glargine,Hum.rec.anlog [Lantus] 10 unit SQ AFTER EACH DIALYSIS #2 vial Physician Discharge Instructions: 54-year-old female came to the hospital with altered mentation. Patient was found fused and not responding. Patient with found to have a blood sugar of 35. Patient had an intraosseous catheter placed and patient was given dextrose. Patient feeling much better. Patient awake and alert. IV placed. Patient missed hemodialysis this afternoon. Will consult nephrology. Patient will be admitted for observation. Blood glucose improved overnight, she received hemodialysis. Stable to discharge home, follow-up with nephrology PCP in 1 week, call office for appointment instructed on strict blood glucose monitoring, eating with meals to prevent hypoglycemia. Educated on compliance for hemodialysis schedule Assessment Insulin-dependent diabetes mellitus had noted hypoglycemia-improved with IV dextrose, End-stage renal disease on hemodialysis, treatment noncompliance-treated by nephrology, follow-up with nephrology outpatient for hemodialysis Continue home medicines as previously prescribed GOAL: Clear understanding of disease process INSTRUCTIONS: Physician Discharge Instructions: -Follow-up with nephrology after discharge for hemodialysis schedule -Follow-up with PCP in 1 to 2 weeks -Please call Dr. Man at [phone] if any questions regarding hospital stay -Please call nursing station at [phone] if any nursing or medication questions -Return to the emergency room if symptoms worsen Diet: ADA, low sodium Activity: Fall precautions Diet: Renal Activity: Fall precautions Followup: NONE,NONE [Primary Care Provider] - Shoaib Duong MD [ACTIVE - CAN ADMIT] - Time spent managing pt's care (in minutes): 45
[2024-05-24] MEDS: carvediloL 25 MG TAB PO SCH (08:18)
[2024-05-24] MEDS: FUROSEMIDE 40 MG/4 ML VIAL IV SCH (08:19)
[2024-05-24] MEDS: FLU (Fluarix Triv) TS24-25(6MOS UP)/PF 45 MCG/0.5 ML Syringe IM ONE (12:00)
[2024-05-24 12:29] VITALS: TEMP 98.5
[2024-05-24] MEDS: ASPIRIN 81 MG PO SCH (12:30)
[2024-05-24] MEDS ORDERED: HYDRALAZINE HCL 25 MG TABLET PO SCH (13:00)
[2024-05-24 17:20] VITALS: O2SAT 96
[2024-05-24 17:33] VITALS: BP 140/83
--- NOTE | 2024-05-24 19:44 | CON ---
Reason For Consultation: Elevated BUN and creatinine, and dialysis management. History Of Present Illness: This is a pleasant 54-year-old female with significant past medical hist ory of hypertension, hyperlipidemia, diabetes complicated with neuropathy and nephropathy, renal cyst , end-stage renal disease on hemodialysis, TTS. Yesterday, the patient went to dialysis. The patien t had fall from her bed. Found to be hypoglycemic. For that reason, patient was approached to the [facility], found to have hypoglycemia. The blood sugar down to 35. The patient missed her dialysis y esterday. For that reason, we have been consulted. Past Medical History: Includes: 1.Diabetes complicated with neuropathy. 2.End-stage renal disease. 3.Hyperlipidemia. 4.Hypertension. Past Surgical History: Includes TDC, hysterectomy, carpal tunnel cyst removal, cholecystectomy. Family History: Positive for hypertension and diabetes. Social History: Ex-smoker. Denied alcohol. Denied drugs abuse. Review of Systems: Head and Neck: No red eye. No ear pain. GI: Has nausea. No vomiting. : No polyuria. No dysuria. No hematuria. CREDIT PROFESSIONAL: No vaginal discharge. Respiratory: No shortness of breath. Cardiovascular: Has syncope. Musculoskeletal: Bodyache. Neuro: Has loss of conscious. No seizure. Physical Examination: Vital Signs: When I saw the patient, blood pressure 164/77, pulse of 82, afebrile. Chest: Clear to auscultation. Heart: S1, S2. Systolic murmur. Abdomen: Soft, nontender. Extremities: Swelling on both upper extremities. No edema on the lower. Neurologic: Alert. No focality. Laboratory Data: Hemoglobin 10.2, sodium 143, potassium 3.5, bicarb 26, BUN 70, creatinine 6.8, calc ium 8.4, albumin 2.6. Current Medications: The patient on, it includes: 1.Atorvastatin. 2.Carvedilol 25 b.i.d. 3.Hydralazine 50 every 8 hours. 4.Gabapentin. 5.Keppra. 6.Lasix. 7.Zofran. 8.Tramadol. 9.Aspirin. Assessment And Plan: 1.End-stage renal disease. We will resume her dialysis and we will follow up. 2.Hypertension, controlled, optimal. Continue current home medications. 3.Secondary hyperparathyroidism. Phosphorus on the goal. We will continue to monitor the patient. 4.Anemia of chronic kidney disease. Continue LUZ. 5.Diabetes with hypoglycemia. We will follow up with the Primary. Advised the patient for __ and we will adjust the Lantus. HODA/JU Voice ID: [id number] Report ID: [id number]
[2024-05-24] MEDS ORDERED: carvediloL 25 MG TAB PO SCH (21:00)
[2024-05-24] MEDS ORDERED: levETIRAcetam 500 MG TAB PO SCH (21:00)
[2024-05-24] MEDS ORDERED: GABAPENTIN 100 MG CAP PO SCH (21:00)
[2024-05-24] MEDS ORDERED: DIVALPROEX DR 500MG TAB PO SCH (21:00)
[2024-05-24] MEDS ORDERED: ATORVASTATIN 40 MG TAB PO SCH (21:00)
[2024-05-25] MEDS ORDERED: FUROSEMIDE 40 MG TABLET PO SCH (09:00)
--- NOTE | 2024-05-25 11:14 | EKG ---
Test Date: 2024-05-23 Test Time: 12:28:40 Auto Service Writer: BP MEASUREMENT RESULTS: Intervals: Rate: 84 UT: 124 QRSD: 82 QT: 402 QTc: 475 [place]: P: 64 UT: 124 QRS: -8 T: 38 INTERPRETIVE STATEMENTS: Normal sinus rhythm Normal ECG Compared to ECG 05/01/2024 06:54:54 No significant changes Electronically Signed On 05-25-24 11:11:34 [employer]SEMBLER [employer] by Frederick Bhakta
== END 2024-05-24 20:00 | disposition home or self-care (01) ==
LOC: ER 11:24 → ERHOLD 17:36 → 2ND 18:16
PROVIDERS: ADMIT Hospitalist; ATTEND Hospitalist
PROC: 5A1D70Z Performance of Urinary Filtration, Intermittent, Less than 6 Hours Per Day (ICD-10-PCS; principal; 2024-05-24)
DX: I12.0 Hypertensive chronic kidney disease with stage 5 chronic kidney disease or end stage renal disease (principal); E11.649 Type 2 diabetes mellitus with hypoglycemia without coma; E11.22 Type 2 diabetes mellitus with diabetic chronic kidney disease; R41.82 Altered mental status, unspecified; N18.6 End stage renal disease; E11.40 Type 2 diabetes mellitus with diabetic neuropathy, unspecified; E78.5 Hyperlipidemia, unspecified; E21.3 Hyperparathyroidism, unspecified; D63.1 Anemia in chronic kidney disease; Z99.2 Dependence on renal dialysis; Z87.891 Personal history of nicotine dependence; Z91.158 Patient's noncompliance with renal dialysis for other reason; Z79.4 Long term (current) use of insulin
CPT/HCPCS: 36415; 71045; 80048; 80053; 80076; 81001; 82947; 83036; 83690; 83735; 83880; 84484; 85025; 85610; 87086; 87088; 90935; 93005; G0378; J1940

== ENCOUNTER 2024-06-18 11:06 | Emergency (ER) | payer OTHER ==
--- OUTSIDE RECORDS SUMMARY | 2024-06-18 11:08 | XMS REPORT | Clinical Summary ---
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
[2024-06-18] MEDS ORDERED: NA CHLORIDE 0.9% 0 ML ONE (11:33)
--- NOTE | 2024-06-18 12:18 | RAD REPORT ---
Procedure: Chest Single View HISTORY: Hypotension and weakness COMPARISON: 2023 FINDINGS: The lungs appear clear of acute infiltrate. No significant pleural effusion noted. The heart is mildly enlarged. IMPRESSION: No acute abnormality is displayed.
[2024-06-18 12:51] LABS: Absolute Eosinophils 0.1 K/uL (0-0.5); Absolute Lymphocytes (CBC) 1.6 K/uL (0.7-4.9); Absolute Monocytes 0.5 K/uL (0.1-1.3); Absolute Neutrophil 2.4 K/uL (1.8-8.0); Basophils % 0.9 % (0-1.3); Eosinophils % 2.4 % (0-4.4); Hematocrit 36.3 % (36.0-45.0); Lymphocytes % 34.5 % (15.3-44.8); MCH 31.8 pg (27.0-35.0); MCV 96.3 fL (80-100); MPV 9.7 fL (7.6-11.3); Monocytes % 9.7 % (3.3-12.3); Neutrophils % 52.5 % (41.7-73.7); Nucleated Red Blood Cells % 0.1 % (0-0); Platelets 120 thou/uL (152-406); RBC Red Blood Cell Count 3.77 M/uL (3.86-4.86); Red Cell Distribution Width 14.7 % (12.1-15.2)
[2024-06-18 13:10] LABS: Albumin 3.1 g/dL (3.4-5.0); Albumin/Globulin Ratio 0.8 (1.1-1.8); Alkaline Phosphatase 72 U/L (45-117); Anion Gap 9.6 mEq/L (5.0-15.0); BUN Blood Urea Nitrogen 20 mg/dL (7-18); Bicarbonate 27 mEq/L (21-32); Bilirubin Total 0.3 mg/dL (0.2-1.0); Globulin 3.8 g/dL (2.3-3.5); Glomerular Filtration Rate 9 ml/min (=/>90); Glucose Level 136 mg/dL (74-106); Potassium 3.6 mEq/L (3.5-5.1); Protein, Total 6.9 g/dL (6.4-8.2); Sodium Level 140 mEq/L (136-145); Troponin High Sensitivity 9.7 pg/mL (<58.9)
[2024-06-18 13:11] LABS: ALT/SGPT < 14 U/L (13-56); AST/SGOT < 10 U/L (15-37); Bilirubin Direct < 0.2 mg/dL (0-0.2); Bilirubin Indirect, Calculated 0.1 mg/dL (0.2-0.8)
--- NOTE | 2024-06-18 13:25 | ER ---
Nurse's Notes [facility] Name: Bisi Santo Age: 54 yrs Sex: Female : 1970 Arrival Date: 06/18/2024 Time: 11:06 Bed 15 Private MD: Diagnosis: Hypotension, resolved Presentation: 06/18 11:15 Chief complaint: EMS states: GENERALIZED WEAKNESS AND HYPOTENSION. Coronavirus screen: bp At this time, the client does not indicate any symptoms associated with coronavirus-19. Ebola Screen: No symptoms or risks identified at this time. Initial Sepsis Screen: Does the patient meet any 2 criteria? No. Patient's initial sepsis screen is negative. Does the patient have a suspected source of infection? No. Patient's initial sepsis screen is negative. Risk Assessment: Do you want to hurt yourself or someone else? Patient reports no desire to harm self or others. Onset of symptoms is unknown. Care prior to arrival: IV initiated. 20 GA, in the right hand, Glucose check: 164. 11:15 Method Of Arrival: EMS: [facility] bp 11:15 Acuity: SONIA 3 bp Triage Assessment: 11:19 General: Appears in no apparent distress. Behavior is calm, cooperative, appropriate bp for age. Pain: Denies pain. Neuro: No deficits noted. Cardiovascular: Rhythm is sinus rhythm. Respiratory: No deficits noted. GI: No signs and/or symptoms were reported involving the gastrointestinal system. : No signs and/or symptoms were reported regarding the genitourinary system. Derm: No deficits noted. Historical: - Allergies: 11:19 Codeine; bp 11:19 Demerol; bp 11:19 Morphine; bp 11:19 Sulfa (Sulfonamide Antibiotics); bp - PMHx: 11:19 Diabetes - IDDM; Dialysis (biopsy kidney); Hypertension; kidney disease (Hypertension); bp - PSHx: 11:19 biopsy kidney; bp - Immunization history:: Adult Immunizations up to date. - Infectious Disease History:: Denies. - Social history:: Smoking status: unknown. - Family history:: not pertinent. Screenin:41 [facility] ED Fall Risk Assessment (Adult) History of falling in the last 3 months, db including since admission No falls in past 3 months (0 pts) Confusion or Disorientation No (0 pts) Intoxicated or Sedated No (0 pts) Impaired Gait No (0 pts) Mobility Assist Device Used No (0 pt) Altered Elimination No (0 pt) Score/Fall Risk Level 0 - 2 = Low Risk Oriented to surroundings, Maintained a safe environment. Abuse screen: Denies threats or abuse. Denies injuries from another. Nutritional screening: No deficits noted. Tuberculosis screening: No symptoms or risk factors identified. Assessment: 12:05 Reassessment: Patient appears in no apparent distress at this time. Patient and/or db family updated on plan of care and expected duration. Pain level reassessed. Patient is alert, oriented x 3, equal unlabored respirations, skin warm/dry/pink. General: Appears in no apparent distress. comfortable, Behavior is calm, cooperative. Neuro: Level of Consciousness is awake, alert, obeys commands, Oriented to person, place, time, situation. Respiratory: Airway is patent Respiratory effort is even, unlabored, Respiratory pattern is regular, symmetrical. 12:42 Reassessment: NS BOLUS HELD PER DR. REED. DIALYSIS PT. LAST DIALYSIS YESTERDAY. db NOTED PORT TO LEFT ARM. PT RECEIVED APPROXIMATELY 1L NS BOLUS FROM EMS. Cardiovascular: Dialysis shunt: in the left arm. 13:40 Reassessment: Patient appears in no apparent distress at this time. Patient and/or db family updated on plan of care and expected duration. Pain level reassessed. Patient is alert, oriented x 3, equal unlabored respirations, skin warm/dry/pink. Vital Signs: 11:15 BP 104 / 65; Pulse 77; Resp 16; Temp 98.8; Pulse Ox 96% ; bp 12:02 BP 109 / 61; Pulse 76; Resp 18; Pulse Ox 98% on R/A; db 12:30 BP 105 / 63; Pulse 73; Resp 16; Pulse Ox 95% on R/A; db 13:30 BP 117 / 69; Pulse 74; Resp 18; Pulse Ox 96% on R/A; db ED Course: 11:15 Patient arrived in ED. bp 11:19 Triage completed. bp 11:19 Jaorn Reed MD is Attending Physician. rt 11:22 Arm band placed on. bp 11:26 Monica Chavez RN is Primary Nurse. db 12:02 Maintain EMS IV. Dressing intact. Site clean \T\ dry. Gauge \T\ site: 20 g R HAND. Flushed db with 10 mL NS. 12:11 XRAY Chest (1 view) In Process Unspecified. EDMS 12:15 Missed attempt(s): 22 gauge in right wrist. Bleeding controlled, band aid applied, db catheter tip intact. 12:30 Missed attempt(s): 22 gauge in right hand. Bleeding controlled, band aid applied, db catheter tip intact. 12:32 Initial lab(s) drawn, by me, sent to lab. db 12:41 Patient has correct armband on for positive identification. Bed in low position. Call db light in reach. Side rails up X 1. Warm blanket given. 14:09 Provided Education on: DISCHARGE AND FOLLOWUP. Client placed on continuous cardiac and db pulse oximetry monitoring. NIBP monitoring applied. potline monitor on. Pulse ox on. NIBP on. 14:09 No provider procedures requiring assistance completed. IV discontinued, intact, db bleeding controlled, No redness/swelling at site. Administered Medications: 12:42 Not Given (DIALYSISs): ns 0.9% 1000 ml IV at 1 bolus Per protocol; to be given as a db bolus over 60 minutes Medication: 14:09 VIS not applicable for this client. db Outcome: 13:25 Discharge ordered by MD. rt 14:09 Discharged to home ambulatory, with family, db 14:09 Condition: stable 14:09 Discharge instructions given to patient, Instructed on discharge instructions, follow up and referral plans. 14:10 Patient left the ED. db Signatures: Dispatcher [employer] EDMS Neeraj Li RN RN bp Monica Chavez RN RN Jaron Encarnacion MD MD rt Corrections: (The following items were deleted from the chart) 14:09 14:09 Discharge instructions given to patient, Instructed on discharge instructions, db follow up and referral plans. Prescriptions given X 1, db
--- NOTE | 2024-06-18 13:25 | EDPHYS ---
Physician Documentation [facility] Name: Bisi Santo Age: 54 yrs Sex: Female : 1970 Arrival Date: 06/18/2024 Time: 11:06 Bed 15 Private MD: ED Physician Jaron Chavez HPI: 06/18 11:59 This 54 yrs old Black Female presents to ER via EMS with complaints of General Weakness.rt 11:59 Patient presents to the ED with lightheadedness, generalized weakness starting today. rt Patient has been compliant with her blood pressure medications. Patient states that the home health nurse found her blood pressure to be mildly low, denies other acute complaints, symptoms are moderate in severity, no other aggravating alleviating factors.. Historical: - Allergies: 11:19 Codeine; bp 11:19 Demerol; bp 11:19 Morphine; bp 11:19 Sulfa (Sulfonamide Antibiotics); bp - PMHx: 11:19 Diabetes - IDDM; Dialysis (biopsy kidney); Hypertension; kidney disease (Hypertension); bp - PSHx: 11:19 biopsy kidney; bp - Immunization history:: Adult Immunizations up to date. - Infectious Disease History:: Denies. - Social history:: Smoking status: unknown. - Family history:: not pertinent. ROS: 11:59 Constitutional: Negative for fever, chills, and weight loss, Cardiovascular: Negative rt for chest pain, palpitations, and edema, Respiratory: Negative for shortness of breath, cough, wheezing, and pleuritic chest pain, Abdomen/GI: Negative for abdominal pain, nausea, vomiting, diarrhea, and constipation, Skin: Negative for injury, rash, and discoloration, 11:59 Neuro: Positive for near syncope, weakness, Exam: 11:59 Constitutional: This is a well developed, well nourished patient who is awake, alert, rt and in no acute distress. Head/Face: Normocephalic, atraumatic. Chest/axilla: Normal chest wall appearance and motion. Nontender with no deformity. No lesions are appreciated. Cardiovascular: Regular rate and rhythm with a normal S1 and S2. No gallops, murmurs, or rubs. Normal PMI, no JVD. No pulse deficits. Respiratory: Lungs have equal breath sounds bilaterally, clear to auscultation and percussion. No rales, rhonchi or wheezes noted. No increased work of breathing, no retractions or nasal flaring. Abdomen/GI: Soft, non-tender, with normal bowel sounds. No distension or tympany. No guarding or rebound. No evidence of tenderness throughout. Skin: Warm, dry with normal turgor. Normal color with no rashes, no lesions, and no evidence of cellulitis. MS/ Extremity: Pulses equal, no cyanosis. Neurovascular intact. Full, normal range of motion. 11:59 ECG was reviewed by the Attending Physician. Vital Signs: 11:15 BP 104 / 65; Pulse 77; Resp 16; Temp 98.8; Pulse Ox 96% ; bp 12:02 BP 109 / 61; Pulse 76; Resp 18; Pulse Ox 98% on R/A; db 12:30 BP 105 / 63; Pulse 73; Resp 16; Pulse Ox 95% on R/A; db 13:30 BP 117 / 69; Pulse 74; Resp 18; Pulse Ox 96% on R/A; db MDM: 11:19 Medical Screening Exam initiated rt 16:59 Differential Diagnosis Dehydration, anemia, electrolyte disturbance. Data reviewed: rt vital signs, nurses notes, lab test result(s), EKG, radiologic studies. Consideration of Admission/Observation Escalation of care including admission/observation considered. I considered the following discharge prescriptions or medication management in the emergency department Medications were administered in the Emergency Department. See MAR. Independent interpretation of the following test(s) in the Emergency Department X-Ray: My interpretation is No infiltrate seen on interpretation of x-ray images. Care significantly affected by the following chronic conditions: Diabetes, Chronic Kidney Disease. Counseling: I had a detailed discussion with the patient and/or guardian regarding the historical points, exam findings, and any diagnostic results supporting the discharge/admit diagnosis, lab results, radiology results, the need for outpatient follow up, to return to the emergency department if symptoms worsen or persist or if there are any questions or concerns that arise at home. Response to treatment: the patient's symptoms have markedly improved after treatment. 06/18 11: Order name: Basic Metabolic Panel; Complete Time: 13:16 rt 06/18 11:21 Order name: CBC with Diff; Complete Time: 13:16 rt 06/18 11: Order name: LFT's; Complete Time: 13:16 rt 06/18 11:21 Order name: Troponin HS; Complete Time: 13:16 rt 06/18 11:21 Order name: XRAY Chest (1 view); Complete Time: 12:19 rt 06/18 11:21 Order name: EKG; Complete Time: 11:21 rt 06/18 11:21 Order name: Cardiac monitoring; Complete Time: 12:38 rt 06/18 11:21 Order name: EKG - Nurse/Tech; Complete Time: 12:38 rt 06/18 11:21 Order name: IV Saline Lock; Complete Time: 12:38 rt 06/18 11:21 Order name: Labs collected and sent; Complete Time: 12:38 rt 06/18 11:21 Order name: O2 Per Protocol; Complete Time: 12:38 rt 06/18 11:21 Order name: O2 Sat Monitoring; Complete Time: 12:38 rt EC:59 Rate is 77 beats/min. Rhythm is regular, Normal Sinus Rhythm with No ectopy. QRS [place] rt is Normal. MD interval is normal. QRS interval is normal. QT interval is normal. No Q waves. T waves are Normal. No ST changes noted. Interpreted by me. Administered Medications: 12:42 Not Given (DIALYSISs): ns 0.9% 1000 ml IV at 1 bolus Per protocol; to be given as a db bolus over 60 minutes Disposition Summary: 06/18/24 13:25 Discharge Ordered Notes: Location: Home rt Problem: new rt Symptoms: have improved rt Condition: Stable rt Diagnosis - Hypotension, resolved rt Followup: rt - With: Private Physician - When: 2 - 3 days - Reason: Discharge Instructions: - Discharge Summary Sheet rt - Hypotension rt Forms: - Medication Reconciliation Form rt - Antibiotic Education rt - Prescription Opioid Use rt - Patient Portal Instructions rt - Leadership Thank You Letter rt Signatures: Dispatcher [employer] Neeraj Carney, ISAIAH RN Jaron Paz MD MD rt Monica Chavez RN db
[2024-06-18 14:41] VITALS: TEMP 98.8
[2024-06-18 14:44] VITALS: BP 117/69; O2SAT 96
--- NOTE | 2024-06-19 15:10 | EKG ---
Test Date: 2024-06-18 Test Time: 11:52:54 Waste Oil Pumper: SOBIA MEASUREMENT RESULTS: Intervals: Rate: 77 [place]: 158 QRSD: 88 QT: 426 QTc: 482 [place]: P: 79 [place]: 158 QRS: -14 T: 64 INTERPRETIVE STATEMENTS: Normal sinus rhythm Junctional ST depression, probably normal Borderline ECG Compared to ECG 05/23/2024 12:28:40 ST (T wave) deviation now present Electronically Signed On 06-19-24 15:06:43 LUMBER STRAIGHTENED by Isaiah Hogan
== END 2024-06-18 14:10 | disposition home or self-care (01) ==
LOC: ER 11:06
DX: R53.1 Weakness (principal); R55 Syncope and collapse; E11.22 Type 2 diabetes mellitus with diabetic chronic kidney disease; N18.6 End stage renal disease; Z99.2 Dependence on renal dialysis
CPT/HCPCS: 36415; 71045; 80048; 80076; 84484; 85025; 93005; 99284; J7030

== ENCOUNTER 2025-01-20 11:59 | Emergency (ER) | payer OTHER ==
--- OUTSIDE RECORDS SUMMARY | 2025-01-20 12:01 | XMS REPORT | Clinical Summary ---
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
--- NOTE | 2025-01-20 12:40 | ER ---
Nurse's Notes [facility] Name: Bisi Santo Age: 54 yrs Sex: Female : 1970 Arrival Date: 01/20/2025 Time: 11:59 Bed 8 Private MD: Diagnosis: Fear of other medical care Presentation: 01/20 12:12 Chief complaint: EMS states: Pt was at dialysis, staff reports that pt was staring off ph and not responding to them, pt does have a hx of seizures, states, " I usually don't shake when I have them, I just blank out, they didn't give me time to come to." Pt has no complaints, denies chest pain, SOB. States that her BP is always high before dialysis. Coronavirus screen: At this time, the client does not indicate any symptoms associated with coronavirus-19. Ebola Screen: No symptoms or risks identified at this time. Initial Sepsis Screen: Does the patient meet any 2 criteria? No. Patient's initial sepsis screen is negative. Does the patient have a suspected source of infection? No. Patient's initial sepsis screen is negative. Risk Assessment: Do you want to hurt yourself or someone else? Patient reports no desire to harm self or others. Onset of symptoms was January 20, 2025. 12:12 Method Of Arrival: EMS: [facility] 12:12 Acuity: SONIA 4 ph 12:18 Care prior to arrival: 12 lead NSR. ph Triage Assessment: 12:17 General: Appears in no apparent distress. comfortable, Behavior is calm, cooperative, ph appropriate for age. Pain: Denies pain. Neuro: Level of Consciousness is awake, alert, obeys commands, Oriented to person, place, time, situation. Cardiovascular: Denies chest pain, shortness of breath. Cardiovascular: Dialysis shunt: in the left bicep, with palpable thrill, with auscultated bruit, with no erythema, with no edema, no bleeding noted. Respiratory: Airway is patent Respiratory effort is even, unlabored. GI: Derm: Skin is normal. Musculoskeletal: Circulation, motion, and sensation intact. Historical: - Allergies: 12:16 Codeine; ph 12:16 Demerol; ph 12:16 Morphine; ph 12:16 Sulfa (Sulfonamide Antibiotics); ph - PMHx: 12:16 Diabetes - IDDM; Dialysis (biopsy kidney); Hypertension; kidney disease (Hypertension); ph - PSHx: 12:16 biopsy kidney; ph - Immunization history:: Adult Immunizations unknown. - Infectious Disease History:: Denies. - Social history:: Smoking status: unknown. Screenin:16 [facility] ED Fall Risk Assessment (Adult) History of falling in the last 3 months, ph including since admission No falls in past 3 months (0 pts) Confusion or Disorientation No (0 pts) Intoxicated or Sedated No (0 pts) Impaired Gait No (0 pts) Mobility Assist Device Used No (0 pt) Altered Elimination No (0 pt) Score/Fall Risk Level 0 - 2 = Low Risk Oriented to surroundings, Maintained a safe environment, Hourly rounding (assess needs \\T\\ fall precautionary measures) done. Abuse screen: Denies threats or abuse. Denies injuries from another. Nutritional screening: No deficits noted. Tuberculosis screening: No symptoms or risk factors identified. Vital Signs: 12:02 BP 195 / 81; Pulse 81; Resp 18; Temp 98; Pulse Ox 99% on R/A; ph ED Course: 12:02 Patient arrived in ED. jl7 12:02 Schuyler Felix [facility]C [facility] dr5 12:02 Hari De La Garza MD is Attending Physician. dr5 12:10 Nieves Villalobos, ISAIAH is Primary Nurse. ph 12:16 Triage completed. ph 12:16 Arm band placed on. ph 12:18 Patient has correct armband on for positive identification. Pulse ox on. NIBP on. ph 12:19 No provider procedures requiring assistance completed. Patient did not have IV access ph during this emergency room visit. Administered Medications: No medications were administered Medication: 12:18 VIS not applicable for this client. ph Outcome: 12:39 Discharge ordered by . dr5 12:54 Discharged to home ph 12:54 Condition: stable 12:54 Discharge instructions given to patient, Instructed on discharge instructions, follow up and referral plans. Demonstrated understanding of instructions, follow-up care, 12:55 Patient left the ED. ph Signatures: Nieves Villalobos, RN RN ph Zulma Benitez RN RN jl7 Schuyler Felix FNP-C COMMISSIONED SECURITY OFFICER-Cdr5
--- NOTE | 2025-01-20 12:40 | EDPHYS ---
Physician Documentation [facility] Name: Bisi Santo Age: 54 yrs Sex: Female : 1970 Arrival Date: 01/20/2025 Time: 11:59 Bed 8 Private MD: ED Physician Hari De La Garza HPI: 01/20 19:41 This 54 yrs old Black Female presents to ER via EMS with complaints of High Blood dr5 Pressure. 19:41 Onset: The symptoms/episode began/occurred acutely. Patient is a 54-year-old female dr5 history of diabetes, dialysis Saturday, hypertension, kidney disease coming in for elevated blood pressure prior to dialysis. Patient reports that dialysis that she spaced out prior to dialysis. Patient currently takes Depakote and Keppra as prescribed and has not missed dose. Patient denies complaints at this time.. Historical: - Allergies: 12:16 Codeine; ph 12:16 Demerol; ph 12:16 Morphine; ph 12:16 Sulfa (Sulfonamide Antibiotics); ph - PMHx: 12:16 Diabetes - IDDM; Dialysis (biopsy kidney); Hypertension; kidney disease (Hypertension); ph - PSHx: 12:16 biopsy kidney; ph - Immunization history:: Adult Immunizations unknown. - Infectious Disease History:: Denies. - Social history:: Smoking status: unknown. ROS: 19:57 Constitutional: as per hpi dr5 Exam: 19:57 Constitutional: This is a well developed, well nourished patient who is awake, alert, dr5 and in no acute distress. Head/Face: Normocephalic, atraumatic. Eyes: Pupils equal round and reactive to light, extra-ocular motions intact. Lids and lashes normal. Conjunctiva and sclera are non-icteric and not injected. Cornea within normal limits. Periorbital areas with no swelling, redness, or edema. Neck: Trachea midline, no thyromegaly or masses palpated, and no cervical lymphadenopathy. Supple, full range of motion without nuchal rigidity, or vertebral point tenderness. No Meningismus. Chest/axilla: Normal chest wall appearance and motion. Nontender with no deformity. No lesions are appreciated. Cardiovascular: Regular rate and rhythm with a normal S1 and S2. Normal PMI, no JVD. No pulse deficits. Respiratory: Lungs have equal breath sounds bilaterally, clear to auscultation. No rales, rhonchi or wheezes noted. No increased work of breathing, no retractions or nasal flaring. Abdomen/GI: Soft, non-tender, non-distended Back: No spinal tenderness. No costovertebral tenderness. Full range of motion. Skin: Warm, dry with normal turgor. Normal color with no rashes, no lesions, and no evidence of cellulitis. MS/ Extremity: Pulses equal, no cyanosis. Neurovascular intact. Full, normal range of motion. Neuro: Awake and alert, GCS 15, oriented to person, place, time, and situation. Cranial nerves II-XII grossly intact. Motor strength 5/5 in all extremities. Sensory grossly intact. Cerebellar exam normal. Normal gait. Vital Signs: 12:02 BP 195 / 81; Pulse 81; Resp 18; Temp 98; Pulse Ox 99% on R/A; ph MDM: 12:02 Medical Screening Exam initiated dr5 20:01 Differential Diagnosis ESRD, Seizure, HTN Crisis. Data reviewed: vital signs, nurses dr5 notes. Consideration of Admission/Observation Escalation of care including admission/observation considered. . 20:04 Care significantly affected by the following Social Determinants of Health: Poor access dr5 to healthcare and/or lack of insurance, Poor access to transportation, Problems related to employment. Counseling: I had a detailed discussion with the patient and/or guardian regarding the historical points, exam findings, and any diagnostic results supporting the discharge/admit diagnosis, the presence of at least one elevated blood pressure reading (>120/80) during this emergency department visit, the need for outpatient follow up, for definitive care, a family practitioner, to return to the emergency department if symptoms worsen or persist or if there are any questions or concerns that arise at home. Refusal of service: The patient/guardian displays adequate decision making capability and despite a detailed discussion of alternatives, benefits, risks, and consequences refuses: all lab tests, Pain Medications. ED course: Patient does not want any labs or anything done on her. Patient reports she has no complaints and wants to go home. . Administered Medications: No medications were administered Disposition Summary: 01/20/25 12:39 Discharge Ordered Notes: Location: Home dr5 Condition: Stable dr5 Diagnosis - Fear of other medical care dr5 Followup: dr5 - With: Emergency Department - When: As needed - Reason: Worsening of condition Followup: dr5 - With: Private Physician - When: 1 - 2 days - Reason: Recheck today's complaints, Continuance of care, Re-evaluation by your physician Discharge Instructions: - Discharge Summary Sheet dr5 - Dialysis dr5 Forms: - Medication Reconciliation Form dr5 - Patient Portal Instructions dr5 - Leadership Thank You Letter dr5 Addendum: 01/22/2025 13:28 Co-signature as Attending Physician, Hari De La Garza MD I agree with the assessment and c moran plan of care. Signatures: Hari De La Garza MD MD cha Hall, Patricia, RN RN Schuyler Parham, DYNAMO TENDER-C DYNAMO TENDER-Cdr5
[2025-01-20 16:11] VITALS: BP 195/81; TEMP 98; O2SAT 99
== END 2025-01-20 12:55 | disposition home or self-care (01) ==
LOC: ER 11:59
DX: F40.232 Fear of other medical care (principal)
CPT/HCPCS: 99283